=== PATIENT | female | born 1980 | race African-American/Black ===

== ENCOUNTER 2021-01-08 01:15 | Inpatient (IN) | payer MEDICARE, MEDICAID, SELFPAY ==
--- NOTE | ~2021-01-08 | MR_ITS ---
EXAMINATION: MR LUMBAR SPINE WITHOUT AND WITH CONTRAST CLINICAL INFORMATION: Low back pain. COMPARISON: None TECHNIQUE: MRI of the lumbar spine was obtained using routine sequences with and without contrast. Intravenous contrast: Gadavist 8.5 mL FINDINGS: VERTEBRAL BODIES AND PARASPINAL STRUCTURES: The marrow signal is homogeneous. There are no compression fractures or subluxations. Mildly reduced intradiscal signal evident from the L3 through the S1 levels. No marrow or soft tissue edema is visible. No pathologic enhancement identified. The paraspinal soft tissues appear normal. The imaged bony pelvis is unremarkable. CONUS MEDULLARIS AND CAUDA EQUINA: Normal, terminating at the level of L2. No lower cord signal abnormality is seen. The cauda equina nerve roots appear normal. No pathologic leptomeningeal enhancement identified. SPINAL LEVELS: L1-L2 and L2-L3: No disc pathology. No central canal stenosis or foraminal narrowing. L3-L4: Mild loss of disc height and mild posterior disc bulge without central canal stenosis. Mild bilateral foraminal narrowing. L4-L5: Broad-based posterior disc bulge lateralized more so to the right side with [id number] foraminal encroachment. Mild facet arthropathy without central canal stenosis. L5-S1: Mild loss of disc height and posterior disc bulge with a broad-based right subarticular zone disc protrusion impressing upon the right S1 nerve root. No central canal stenosis or foraminal narrowing. MR/MR lumbar spine wo/w con IMPRESSION: Broad-based right subarticular zone disc protrusion at the L5-S1 level impressing upon the right S1 nerve root with compression deformity. Mild posterior disc bulges at the L3-L4 and L4-L5 levels with [id number] foraminal encroachment. No central canal stenosis.
[2021-01-08 02:55] VITALS: BP 149/79; PULSE 88; RESP 18; TEMP 36.9; O2SAT 97
[2021-01-08 03:28] LABS: Basophils Absolute Auto 0.1 X10*3/uL (0.0-0.2); Basophils Percent Auto 0.3 % (0-2); Eosinophils Absolute Auto 0.3 X10*3/uL (0.0-0.4); Eosinophils Percent Auto 1.5 % (0-4); Hematocrit 36.1 % (37-47); Hemoglobin 11.6 g/dl (12.0-16.0); Imm Gran Abs Auto 0.07 X10*3/uL (0.00-0.03); Imm Gran Pct Auto 0.4 % (0.0-0.4); Lymphocytes Absolute Auto 2.3 X10*3/uL (1.2-4.9); Lymphocytes Percent Auto 13.1 % (20-40); MANUAL DIFF FLAG NO; Mean Corpuscular HGB Conc 32.1 g/dl (31.0-35.0); Mean Corpuscular Hemoglobin 27.4 pg (27.0-33.0); Mean Corpuscular Volume 85.1 fL (80-98); Mean Platelet Volume 10.5 fL (9.4-12.3); Monocytes Absolute Auto 1.1 X10*3/uL (0.1-1.2); Monocytes Percent Auto 6.4 % (2-11); Neutrophils Absolute Auto 13.5 X10*3/uL (2.0-8.3); Neutrophils Percent Auto 78.3 % (45-73); Platelet Count 323 X10*3/uL (160-400); Red Blood Count 4.24 X10*6/uL (4.20-5.50); Red Cell Distribution Width 14.6 % (11.0-16.0); White Blood Count 17.2 X10*3/uL (4.8-10.8)
[2021-01-08 03:47] LABS: Lactic Acid 0.9 mmol/L (0.5-2.0)
[2021-01-08 03:50] LABS: Anion Gap 13 (12-20); Blood Urea Nitrogen 7 mg/dL (9-16); Calcium 8.6 mg/dL (8.4-10.2); Carbon Dioxide 30 mmol/L (22-29); Chloride 100 mmol/L (96-108); Creatinine Clr Calc Pharmacy 134.4; Estimated Glomerular Filt Rate > 60; Glucose Random 101 mg/dL (60-115); Sodium 139 mmol/L (135-145)
[2021-01-08 04:10] LABS: Alanine Aminotransferase 16 U/L (0-31); Albumin Level 3.8 g/dL (3.5-5.0); Alkaline Phosphatase 165 U/L (39-117); Aspartate Amino Transferase 23 U/L (5-31); Bilirubin Direct 0.2 mg/dL (0.0-0.5); Bilirubin Total 0.3 mg/dL (0.0-1.0); Lipase 7 U/L (8-78); Total Protein 8.2 g/dL (6.5-8.0)
[2021-01-08] MEDS: Lidocaine HCl 2 % MPF 5 ML VIAL 10 ML SUBCUT (04:26)
[2021-01-08] MEDS: cefTRIAXone sodium 1 GM in 0.9 % Sodium Chloride 50 ML IV (04:26)
[2021-01-08 04:41] LABS: Glucose Urine UA NEG (NEG); Leukocyte Esterase Urine TRACE (NEG); Nitrite Urine POS (NEG); Specific Gravity - Urine 1.025 (1.005-1.025); UACC Culture Trigger YES; Urine Blood 1+ (NEG); Urine Ketones NEG (NEG); Urine Protein NEG (NEG-TRACE)
[2021-01-08 04:42] LABS: Appearance Urine CLOUDY; Color Urine YELLOW
--- NOTE | 2021-01-08 04:45 | PC.NURSE ---
Abscess drained by at bedside. Abscess d/t gangrene after bug bite 1 month ago. Brown fluid drained from abscess without issue, lidocaine injected by provider. Tolerated procedure well.
[2021-01-08 04:49] LABS: Bacteria Urine 4+ /LPF; Squamous Epithelial Cell Urine 1+ /LPF
--- NOTE | 2021-01-08 05:03 | ED_ITS ---
HPI - General Adult General Chief complaint: Extremity Problem Stated complaint: ?Arm infection Time Seen by Provider: 01/08/21 03:41 Source: patient Mode of arrival: ambulatory Limitations: no limitations History of Present Illness HPI narrative: 40-year-old female with history of IV drug abuser presented with left arm pain, think she has an abscess in her left arm, patient not sure if it is bug bite versus injecting herself with drugs, patient had a history of multiple skin abscesses with cellulitis. Had subjective fever at home patient took Tylenol at home. Related Data Allergies Allergy/AdvReac Type Severity Reaction Status Date / Time Penicillins Allergy Intermediate HIVES Verified 01/08/21 02:55 Review of Systems Review of Systems: All other systems are reviewed and are negative Constitutional: Reports as per HPI and Reports no additional constitutional complaints Eyes: Reports as per HPI and Reports no additional eye complaints Reports system reviewed and no additional complaints, except as documented Cardiovascular: Reports as per HPI and Reports no additional cardiovascular complaints Respiratory: Reports as per HPI and Reports no additional respiratory complaints Gastrointestinal: Reports as per HPI and Reports no additional gastrointestinal complaints Genitourinary: Reports no additional female genitourinary complaints Musculoskeletal: Reports no additional musculoskeletal complaints Skin/Breast: Reports system reviewed and no additional complaints, except as docu Psychiatric: Reports no additional psychiatric complaints Endocrine: Reports no additional endocrine complaints Hematologic/Lymphatic: Reports no additional hematologic/lymphatic complaints Allergic/Immunologic: Reports no additional allergic/immunologic complaints Reports system reviewed and no additional complaints, except as documented and Reports Abnormal speech present [facility] Social History Social History Advance Directives: No Advance Directives Information Provided: No Physical Exam Vital Signs: Vital Signs: Last Vital Signs Temp 98.4 F 01/08/21 02:55 Pulse 88 01/08/21 02:55 Resp 18 01/08/21 02:55 BP 149/79 H 01/08/21 02:55 Pulse Ox 97 01/08/21 02:55 Body Mass Index 0.3 Vital signs have been reviewed as appeared to be correct. Blood pressure normal. Heart rate normal. Respiration rate normal. Temperature normal. Oxygen saturation normal. Appearance: Alert. Oriented X3. No acute distress. Head: Normal external exam. Normocephalic. Atraumatic. No Lebron signs noted. No raccoon eyes noted Eyes: PERRLA. EOMI. Conjunctiva and sclera normal. Eyelids normal. ENT: TM's Normal. Pharynx normal. Uvula midline. Moist mucous membranes. No t rismus noted. No drooling noted. No muffled voice noted. Neck: Normal inspection. Neck supple. FROM. No adenopathy. Thyroid Normal. No meningeal signs. No neck mass noted. CVS: Normal heart rate and rhythm. Heart sound normal. No murmurs noted. Pulses normal throughout. Respiratory: No respiratory distress. Painless inspiration. Breath sounds normal. No wheezes/rales/rhonchi noted. Chest nontender. No accessory muscle usage noted or decreased air movement noted. Abdomen: Soft and nontender. Bowel sounds normal in all 4 quadrants. No distention noted. No organomegaly noted. No visible injury noted. Back: No CVA tenderness. Full range of motion noted. Skin: Skin warm and dry. Normal skin color. Normal skin turgor. No rashes/lesions/lacerations noted. Extremities: Left arm: 7 x 7 cm area of redness, hotness, tenderness, with 5 x 5 cm center area of fluctuation. Neuro: Oriented X 3. No motor deficit. No sensory deficit. Reflexes normal. Course Course Course Narrative: Assessment and plan. 40-year-old female history of IV drug abuser presented with left arm infection/a bscess status post I&D of the abscess of [place] [id number], will admit the patient for IV antibiotic. Patient also has a concern of STDs claimed that her significant other cheated on her, will check for STDs. Patient is complaining of low back pain for the past 3 days, no urinary incont inence, no motor or sensation deficit in the lower extremities. Given risk factor for this patient epidural abscess need to be ruled out by MRI the case discussed with the hospitalist who will order MRI as an inpatient. Procedures Abscess I/D Site: upper extremity (Left arm) Local Anesthetic: lidocaine 2% Amount of anesthesia used (mL): 5 Technique: incised with blade Amount of fluid expressed (mL): 100 Sent for culture/gram staining?: No Irrigation: No Packing used?: none Complications: pain Medical Decision Making Lab Data Lab results reviewed: Yes I reviewed the patient's lab results. Result diagrams: 01/08/21 03:19 01/08/21 03:20 Labs: Lab Results 01/08/21 01/08/21 01/08/21 Range/Units 03:19 03:19 03:20 WBC 17.2 H (4.8-10.8) X10*3/uL RBC 4.24 (4.20-5.50) X10*6/uL Hgb 11.6 L (12.0-16.0) g/dl Hct 36.1 L (37-47) % MCV 85.1 (80-98) fL MCH 27.4 (27.0-33.0) pg MCHC 32.1 (31.0-35.0) g/dl RDW 14.6 (11.0-16.0) % Plt Count 323 (160-400) X10*3/uL MPV 10.5 (9.4-12.3) fL Immature Gran % (Auto) 0.4 (0.0-0.4) % Neut % (Auto) 78.3 H (45-73) % Lymph % (Auto) 13.1 L (20-40) % [place] % (Auto) 6.4 (2-11) % Eos % (Auto) 1.5 (0-4) % Baso % (Auto) 0.3 (0-2) % Lymph # (Auto) 2.3 (1.2-4.9) X10*3/uL [place] # (Auto) 1.1 (0.1-1.2) X10*3/uL Eos # (Auto) 0.3 (0.0-0.4) X10*3/uL Baso # (Auto) 0.1 (0.0-0.2) X10*3/uL Abs Immat Gran (auto) 0.07 H (0.00-0.03) X10*3/uL Absolute Neuts (auto) 13.5 H (2.0-8.3) X10*3/uL Absolute Nucleated RBC 0.000 (0.0-0.012) X10*3/uL Nucleated RBC % (auto) 0.0 (0.0-0.2) /100WBC Sodium 139 (135-145) mmol/L Potassium 4.0 (3.3-5.1) mmol/L Chloride 100 (96-108) mmol/L Carbon Dioxide 30 H (22-29) mmol/L Anion Gap 13 (12-20) BUN 7 L (9-16) mg/dL Creatinine 0.71 (0.5-1.4) mg/dL Estim Creat Clear Calc 134.4 Estimated GFR > 60 Random Glucose 101 (60-115) mg/dL Lactic Acid 0.9 (0.5-2.0) mmol/L Calcium 8.6 (8.4-10.2) mg/dL Total Bilirubin 0.3 (0.0-1.0) mg/dL Direct Bilirubin 0.2 (0.0-0.5) mg/dL AST 23 (5-31) U/L ALT 16 (0-31) U/L Alkaline Phosphatase 165 H (39-117) U/L Total Protein 8.2 H (6.5-8.0) g/dL Albumin 3.8 (3.5-5.0) g/dL Lipase 7 L (8-78) U/L Urine Color Urine Appearance Urine pH (5.0-8.0) Ur Specific [place] (1.005-1.025) Urine Protein (NEG-TRACE) MG/DL Urine Glucose (UA) (NEG) MG/DL Urine Ketones (NEG) MG/DL Urine Blood (NEG) Urine Nitrite (NEG) Ur Leukocyte Esterase (NEG) Urine RBC (0) /HPF Urine WBC (0-4) /HPF Ur Squamous Epith Cells /LPF Urine Bacteria /LPF 01/08/21 Range/Units 04:31 WBC (4.8-10.8) X10*3/uL RBC (4.20-5.50) X10*6/uL Hgb (12.0-16.0) g/dl Hct (37-47) % MCV (80-98) fL MCH (27.0-33.0) pg MCHC (31.0-35.0) g/dl RDW (11.0-16.0) % Plt Count (160-400) X10*3/uL MPV (9.4-12.3) fL Immature Gran % (Auto) (0.0-0.4) % Neut % (Auto) (45-73) % Lymph % (Auto) (20-40) % [place] % (Auto) (2-11) % Eos % (Auto) (0-4) % Baso % (Auto) (0-2) % Lymph # (Auto) (1.2-4.9) X10*3/uL [place] # (Auto) (0.1-1.2) X10*3/uL Eos # (Auto) (0.0-0.4) X10*3/uL Baso # (Auto) (0.0-0.2) X10*3/uL Abs Immat Gran (auto) (0.00-0.03) X10*3/uL Absolute Neuts (auto) (2.0-8.3) X10*3/uL Absolute Nucleated RBC (0.0-0.012) X10*3/uL Nucleated RBC % (auto) (0.0-0.2) /100WBC Sodium (135-145) mmol/L Potassium (3.3-5.1) mmol/L Chloride (96-108) mmol/L Carbon Dioxide (22-29) mmol/L Anion Gap (12-20) BUN (9-16) mg/dL Creatinine (0.5-1.4) mg/dL Estim Creat Clear Calc Estimated GFR Random Glucose (60-115) mg/dL Lactic Acid (0.5-2.0) mmol/L Calcium (8.4-10.2) mg/dL Total Bilirubin (0.0-1.0) mg/dL Direct Bilirubin (0.0-0.5) mg/dL AST (5-31) U/L ALT (0-31) U/L Alkaline Phosphatase (39-117) U/L Total Protein (6.5-8.0) g/dL Albumin (3.5-5.0) g/dL Lipase (8-78) U/L Urine Color YELLOW Urine Appearance CLOUDY Urine pH 6.0 (5.0-8.0) Ur Specific [place] 1.025 (1.005-1.025) Urine Protein NEG (NEG-TRACE) MG/DL Urine Glucose (UA) NEG (NEG) MG/DL Urine Ketones NEG (NEG) MG/DL Urine Blood 1+ H (NEG) Urine Nitrite POS H (NEG) Ur Leukocyte Esterase TRACE H (NEG) Urine RBC 1-4 (0) /HPF Urine WBC 15-29 H (0-4) /HPF Ur Squamous Epith Cells 1+ /LPF Urine Bacteria 4+ /LPF Discharge Plan Discharge Clinical Impression: Cellulitis of arm, left, Abscess of left arm Patient Disposition: Admitted As Inpatient
[2021-01-08] MEDS: vancomycin HCL 1,500 MG in 0.9 % Sodium Chloride 500 ML 333.33 MG IV (05:28)
--- NOTE | 2021-01-08 05:50 | PC.NURSE ---
Per hospitalist, plan for MRI in the morning. Amaya (nursing supervisor [employer]) notified, plan to call on-call MRI staff member (Lyndsay). Hospitalist aware that on-call hours are 9am-5pm today.
--- NOTE | 2021-01-08 05:54 | PM.IMHP ---
History of Present Illness Date of Service: 01/08/21 Chief Complaint: Left arm pain redness and swelling 40-year-old female with a past medical history of IV drug abuse presented to the hospital with a chief complaint of left arm pain redness and swelling for the past 2 days. Complains of subjective fevers. Mentioned that she used IV drugs in the home. Denies any numbness tingling. Denies any fever chills cough. Denies any headaches. Mentions that she smokes cigarettes and uses IV drugs. Patient also complains of low back pain for the past 2 days. Denies any numbness tingling in the lower extremities. Denies any difficulty with urination or stool incontinence. Denies any falls. Review of all other systems is negative except mentioned above ER course: Per ER team patient exam was nonfocal, left arm noted to have significant swelling and fluctuancy-> I&D was done and drained copious amounts of pus. Patient was given IV vancomycin and ceftriaxone. Admitted to the hospital for further management. PMFSH Social History Alcohol intake: never Smoking Status: Never smoker Use of substances other than those prescribed or required for medical reasons: Yes Substance Use Type: Heroin Substance Use Frequency: Occasionally Last Used Substance: Weeks (ago) Advance Directives: No Advance Directives Information Provided: No Meds Allergies Allergy/AdvReac Type Severity Reaction Status Date / Time Penicillins Allergy Intermediate HIVES Verified 01/08/21 02:55 Active Medications: Current Medications Generic Name Dose Route Start Last Admin Trade Name Freq PRN Reason Stop Dose Admin Acetaminophen 650 mg 01/08/21 04:59 Acetaminophen 325 Mg Tablet PO Q6H PRN Pain, Mild (Pain Scale 1-3) Clonidine HCl 0.1 mg 01/08/21 05:02 Clonidine Hcl 0.1 Mg Tablet PO BID PRN anxiety/restlessness Protocol Vancomycin HCl 1,000 mg/ 270 mls @ 270 mls/hr 01/08/21 05:00 Sodium Chloride IV Q12H [facility] Pharmacy Consult 1 each 01/08/21 03:43 Consult Rx Vancomycin Dosing MISCELLANE DAILY PRN Consult order Pharmacy Consult 1 each 01/08/21 04:59 Consult Rx Vancomycin Dosing MISCELLANE DAILY PRN Consult order Sodium Chloride 3 ml 01/08/21 08:00 0.9 % Sodium Chloride Flush 3 Ml Syringe IVFLUSH QSHIFT IJEOMA Physical Exam Vital Signs and Narrative: Vital Signs: Last Vital Signs Temp 98.4 F 01/08/21 02:55 Pulse 88 01/08/21 02:55 Resp 18 01/08/21 02:55 BP 149/79 H 01/08/21 02:55 Pulse Ox 97 01/08/21 02:55 Body Mass Index 0.3 Gen: Appears be in no acute distress HEENT: NCAT, Moist mucosa. Pulmonary: Vesicular breath sounds, fair air entry CVS: Normal S1-S2 Abdomen: BS+, Soft, Nontender Extremities: Warm well perfused; left arm is warm and hyperemic. Refer pulses are palpable. Dressing in place on left arm. Patient denies paresthesias. Neuro: Alert and awake. Strength 5/5 upper and lower extremity; sensations equal bilaterally. Results Labs CBC and Chem 7: 01/08/21 06:35 01/08/21 06:35 Labs: Laboratory Results - last 24 hr 01/08/21 01/08/21 01/08/21 03:19 03:19 03:20 MCV 85.1 MCH 27.4 MCHC 32.1 RDW 14.6 Plt Count 323 MPV 10.5 Immature Gran % (Auto) 0.4 Neut % (Auto) 78.3 H Lymph % (Auto) 13.1 L [place] % (Auto) 6.4 Eos % (Auto) 1.5 Baso % (Auto) 0.3 Lymph # (Auto) 2.3 [place] # (Auto) 1.1 Eos # (Auto) 0.3 Baso # (Auto) 0.1 Abs Immat Gran (auto) 0.07 H Absolute Neuts (auto) 13.5 H Absolute Nucleated RBC 0.000 Nucleated RBC % (auto) 0.0 Anion Gap 13 Estim Creat Clear Calc 134.4 Estimated GFR > 60 Random Glucose 101 Lactic Acid 0.9 Calcium 8.6 Total Bilirubin 0.3 Direct Bilirubin 0.2 AST 23 ALT 16 Alkaline Phosphatase 165 H Total Protein 8.2 H Albumin 3.8 Lipase 7 L Urine Color Urine Appearance Urine pH Ur Specific [place] Urine Protein Urine Glucose (UA) Urine Ketones Urine Blood Urine Nitrite Ur Leukocyte Esterase Urine RBC Urine WBC Ur Squamous Epith Cells Urine Bacteria 01/08/21 04:31 MCV MCH MCHC RDW Plt Count MPV Immature Gran % (Auto) Neut % (Auto) Lymph % (Auto) [place] % (Auto) Eos % (Auto) Baso % (Auto) Lymph # (Auto) [place] # (Auto) Eos # (Auto) Baso # (Auto) Abs Immat Gran (auto) Absolute Neuts (auto) Absolute Nucleated RBC Nucleated RBC % (auto) Anion Gap Estim Creat Clear Calc Estimated GFR Random Glucose Lactic Acid Calcium Total Bilirubin Direct Bilirubin AST ALT Alkaline Phosphatase Total Protein Albumin Lipase Urine Color YELLOW Urine Appearance CLOUDY Urine pH 6.0 Ur Specific [place] 1.025 Urine Protein NEG Urine Glucose (UA) NEG Urine Ketones NEG Urine Blood 1+ H Urine Nitrite POS H Ur Leukocyte Esterase TRACE H Urine RBC 1-4 Urine WBC 15-29 H Ur Squamous Epith Cells 1+ Urine Bacteria 4+ Assessment and Plan (1) Cellulitis of arm, left: Status: Acute 40-year-old female with a past medical history of IV drug abuse presented to the hospital with a chief complaint of left arm pain redness and swelling noted to have cellulitis/abscess. Status post I&D in the ER. Admitted to the hospital for further management. Left arm cellulitis/abscess: Status post I&D in the ER. Patient denies any paresthesias and have good peripheral pulses. Less concern for any compartment syndrome currently. Will also consult General surgery for further recommendations. Continue IV vancomycin. Id consult. Follow-up cultures. Low back pain: Exam nonfocal. Patient denies urinary retention or stool incontinence. Noted paraspinal tenderness. Question musculoskeletal. Will also obtain MRI spine to rule out any infectious etiology. History of polysubstance abuse: Patient counseled to avoid illicit drug use. Clonidine p.r.n.. Monitor for withdrawal. Tobacco dependence: Nicotine patch offered. DVT prophylaxis: Subcu heparin Code status: Full code
[2021-01-08 07:09] VITALS: BP 111/55; PULSE 74; RESP 16; TEMP 36.8; O2SAT 97
[2021-01-08 07:09] LABS: MANUAL DIFF FLAG NO
[2021-01-08 07:17] LABS: Basophils Percent Auto 0.3 % (0-2); Eosinophils Absolute Auto 0.3 X10*3/uL (0.0-0.4); Eosinophils Percent Auto 1.6 % (0-4); Hematocrit 32.9 % (37-47); Hemoglobin 10.5 g/dl (12.0-16.0); Imm Gran Abs Auto 0.06 X10*3/uL (0.00-0.03); Imm Gran Pct Auto 0.4 % (0.0-0.4); Lymphocytes Absolute Auto 2.3 X10*3/uL (1.2-4.9); Mean Corpuscular HGB Conc 31.9 g/dl (31.0-35.0); Mean Corpuscular Hemoglobin 27.3 pg (27.0-33.0); Mean Corpuscular Volume 85.5 fL (80-98); Mean Platelet Volume 11.2 fL (9.4-12.3); Monocytes Absolute Auto 1.2 X10*3/uL (0.1-1.2); Monocytes Percent Auto 7.6 % (2-11); Neutrophils Absolute Auto 11.4 X10*3/uL (2.0-8.3); Neutrophils Percent Auto 75.1 % (45-73); Platelet Count 298 X10*3/uL (160-400); Red Blood Count 3.85 X10*6/uL (4.20-5.50); Red Cell Distribution Width 14.6 % (11.0-16.0); White Blood Count 15.2 X10*3/uL (4.8-10.8)
[2021-01-08 07:39] LABS: Anion Gap 13 (12-20); Blood Urea Nitrogen 6 mg/dL (9-16); Calcium 8.2 mg/dL (8.4-10.2); Carbon Dioxide 29 mmol/L (22-29); Chloride 101 mmol/L (96-108); Creatinine Clr Calc Pharmacy 140.3; Estimated Glomerular Filt Rate > 60; Glucose Random 110 mg/dL (60-115); Potassium 3.8 mmol/L (3.3-5.1); Sodium 139 mmol/L (135-145)
[2021-01-08] MEDS: 0.9 % Sodium Chloride Flush 3 ML SYRINGE IVFLUSH (08:07)
[2021-01-08 09:04] LABS: CT PCR NOT DETECTED (Not Detect.); NG PCR NOT DETECTED (Not Detect.)
[2021-01-08 11:10] VITALS: BP 107/44; PULSE 66; RESP 18; TEMP 37.2; O2SAT 96
[2021-01-08] MEDS: Nicotine 14 MG PATCH.TD24 TRANSDERMA (11:16)
--- NOTE | 2021-01-08 11:30 | PC.NURSE ---
dressing on upper left arm was saturated with serosanguineous fluid. dressing was removed, abscess was cleaned with saline soaked gauze pads. telfa dressing applied and then wrapped with gauze.
--- NOTE | 2021-01-08 11:33 | MHC.CM.PN ---
Attempted to meet with patient in regards to discharge planning. Patient currently yelling at nursing staff. Will attempt to meet again. Continue to monitor for d/c needs.
--- NOTE | 2021-01-08 11:35 | PC.NURSE ---
pt was offered prn Tylenol for upper left arm pain and refused the medication. pt then started shouting about inadequate pain control. (Quinn) was notified and pt was told MD would be in to see her and the patient stated she did not want to see the doctor and stated she wanted to leave now. pt was encouraged to stay and adamantly refused to stay. pt informed of risks of leaving AMA. pt informed of risk of infection and encouraged to return to ED at anytime if needed. pt alert and oriented x3, ambulated independently, gait steady. no evidence of respiratory distress noted. pt given extra supplied for dressing changes at home. aware.
--- NOTE | 2021-01-08 11:39 | MHC.CM.PN ---
Patient left AMA before she could be seen by case management.
--- NOTE | 2021-01-08 12:27 | PM.EVENT ---
Event Note Date of Service: 01/13/21 Event Note: Notified by the ED nurse that patient wants to leave against medical advise -I try to reach to the patient but before that she left against medical advice, she did not want to wait to be seen: Patient was notified by the staff the risk of worsening infection and also was told to come to the emergency room and get treated. Discharge diagnosis: 1.Left arm cellulitis/abscess has I&d last night in ED.
== END 2021-01-08 11:39 | disposition left against medical advice (07) | DRG 603 ==
LOC: HO.ED 05:09 → HO.EDOVER 05:10
PROVIDERS: Admitting Provider Hospitalist; Emergency Provider Emergency Medicine; Visit Provider Internal Medicine
DX: L02.414 Cutaneous abscess of left upper limb (principal); L03.114 Cellulitis of left upper limb; M54.9 Dorsalgia, unspecified; F19.10 Other psychoactive substance abuse, uncomplicated; F17.210 Nicotine dependence, cigarettes, uncomplicated; Z71.6 Tobacco abuse counseling; Z88.0 Allergy status to penicillin
CPT/HCPCS: 36415; 72158; 80048; 80076; 81001; 81003; 83605; 83690; 85025; 87040; 87086; 87491; 87591; 96372; 99284; 99285; A9585; J0696; J3370

== ENCOUNTER 2024-03-14 15:10 | Emergency (ER) | payer MEDICARE, MEDICAID, SELFPAY ==
[2024-03-14 15:18] VITALS: BP 144/100; PULSE 98; O2SAT 98
--- NOTE | 2024-03-14 15:19 | ED.GENADULT ---
[facility] - General Adult General Chief complaint: Psychiatric Symptoms Stated complaint: feels like bugs are crawling on her Time Seen by Provider: 03/14/24 16:11 Source: patient Mode of arrival: EMS History of Present Illness ED Provider: Dr Long [facility] narrative: This is a 43-year-old female who is brought in by EMS after someone called 911 for observation of smoke in patient's home but patient states that she has been femur gaining her mobile home for insects because she feels that she has bugs throughout her home and that they are climbing through her hair and on her skin. She states that she uses multiple drugs Diego dust/heroin/cocaine and states that she has no running water at home. She states that she does not want to live anymore and that she has thoughts of harming herself but denies being on any psychiatric medications. Related Data Allergies Allergy/AdvReac Type Severity Reaction Status Date / Time Penicillins Allergy Intermediate HIVES Verified 03/14/24 15:53 Review of Systems Review of Systems: Pertinent positives and negatives as stated in HPI PMF Past Medical History Source: nursing notes reviewed Social History Social History Alcohol intake: current Alcohol intake frequency: a few times a week Smoked in Last 30 Days: Yes Use of substances other than those prescribed or required for medical reasons: Yes Substance Use Type: Crack/Cocaine, Heroin, IV Drugs and Marijuana Substance Use Frequency: Chronic Longstanding Last Used Substance: Days (ago) Advance Directives: No Advance Directives Information Provided: No Do you have a plan to hurt others: No Plan Patient : No Physical Exam ED Vital Signs: Vital Signs - 24 hr 03/14/24 15:48 Temperature 98.4 F Pulse Rate 82 Respiratory Rate 16 Blood Pressure 161/89 H Pulse Oximetry 98 Oxygen Delivery Method Room Air BMI result Body Mass Index 31.1 VITAL SIGNS: Reviewed. GENERAL: Well developed, well nourished, in mild distress. HEAD: Normocephalic/atraumatic EYES: PERRLA, EOMI EARS: Ext canals without abnormality NOSE: Nares patent bilateral OROPHARYNX: no oral lesions noted, posterior pharynx clear NECK: Supple, no adenopathy LUNGS: Normal breath sounds. No adventitious sounds or accessory muscle use. SpO2<98> CARDIOVASCULAR: Regular rate and rhythm without noted murmurs, no JVD or lower extremity edema. ABDOMEN: Soft, non-tender, non-distended with bowel sounds. MUSCULOSKELETAL: No tenderness, deformities, or effusions noted on gross inspection. EXTREMITIES: No cyanosis, clubbing or edema. SKIN: Inspection of the skin reveals no rashes, no obvious bug bite NEUROLOGIC: Alert and oriented x 4. Strength and sensation to light touch were grossly intact x 4, cranial nerves 2-12 are grossly intact. Course Course Course Narrative: This is a Rapid Medical Examination (RME) performed by Shavonne Sanchez PA-C in triage. Full HPI, ROS, assessment and treatment plan per primary provider in the Main ED. 43 yo female with history of IVDA presenting to the ER for evaluation of bugs crawling on her. Fire was called to her house for white smoke but she was found spraying bug spray, bug bombs in her home. She feels SOB from the smoke and feels like bugs her on her. She was spraying the bug spray from the store to exterminate the bugs, apple cider vinegar and tea tree oil on herself to try to get rid of them. She felt like there was an oozing from her skin, all over. She has not had running water in her trailer for 6 months. She lives alone. She admits to drug use but none today, would not elaborate. Not suicidal. Plan: to go to the pod, medical clearance Medical Decision Making Medical Decision Making [facility] Narrative: 43-year-old female with history and clinical presentation,DDX: Opioid withdrawal with paresthesias, nursing informs me that COWS-15, patient has no other acute medical complaints. I reviewed all investigations and hematologic indices are negative for leukocytosis/left shift/anemia/thrombocytopenia. Chemistry indices are negative for MORENITA/electrolyte/liver enzyme derangements, alkaline phosphatase is chronically elevated. Urinalysis negative for UTI/hematuria. Salicylate/ethanol/acetaminophen are undetectable. UDS appears to be grossly positive for opiates to include fentanyl/cocaine/marijuana. I see no positivity for PCP. COVID-19 is negative. INTERVENTION: Baclofen/clonidine/tizanidine Patient is otherwise cleared for evaluation by the care team and continued COWS assessment. Patient placed in physician observation because the patient needed more time for crisis and addiction medicine evaluation. At the time observation was started the patient's vital signs were stable, patient is alert and oriented but slightly agitated, neuro: Nonfocal, CV RRR, lungs clear Differential Diagnosis Differential Diagnoses: The differential diagnosis associated with the presentation includes Please see the discussion above Admission/Observation Consideration of admission/observation: Escalation of care including admission/observation considered Please see the discussion above Lab Data MDM Lab Attestation statement: I reviewed the patient's lab results. Please see the discussion above 03/14/24 16:44 03/14/24 16:44 Labs: Lab Results 03/14/24 Range/Units 16:44 WBC 9.1 (4.8-10.8) X10*3/uL RBC 4.36 (4.20-5.50) X10*6/uL Hgb 12.3 (12.0-16.0) g/dl Hct 37.2 (37.0-47.0) % MCV 85.3 (80.0-98.0) fL MCH 28.2 (27.0-33.0) pg MCHC 33.1 (31.0-35.0) g/dl RDW 15.7 (11.0-16.0) % Plt Count 311 (160-400) X10*3/uL MPV 10.9 (9.4-12.3) fL Immature Gran % (Auto) 0.3 (0.0-0.4) % Neut % (Auto) 66.2 (45-73) % Lymph % (Auto) 24.3 (20-40) % Mckean % (Auto) 8.5 (2-11) % Eos % (Auto) 0.3 (0-4) % Baso % (Auto) 0.4 (0-2) % Lymph # (Auto) 2.2 (1.2-4.9) X10*3/uL Mckean # (Auto) 0.8 (0.1-1.2) X10*3/uL Eos # (Auto) 0.0 (0.0-0.4) X10*3/uL Baso # (Auto) 0.0 (0.0-0.2) X10*3/uL Abs Immat Gran (auto) 0.03 (0.00-0.03) X10*3/uL Absolute Neuts (auto) 6.0 (2.0-8.3) x10*3/uL Absolute Nucleated RBC 0.000 (0.0-0.012) X10*3/uL Nucleated RBC % (auto) 0.0 (0.0-0.2) /100WBC Urine Color Yellow Urine Appearance Clear Urine pH 8.0 (5.0-9.0) Ur Specific Organ <= 1.005 (1.005-1.025) Urine Protein Negative (Neg-Trace) mg/dL Urine Glucose (UA) Negative (Negative) mg/dL Urine Ketones Negative (Negative) mg/dL Urine Blood Negative (Negative) Urine Nitrite Negative (Negative) Ur Leukocyte Esterase Negative (Negative) Urine Opiates Screen POSITIVE H (Not Detect) Ur Buprenorphine Scrn Not Detected (Not Detect) ng/mL Ur Oxycodone Screen Not Detected (Not Detect) ng/mL Urine Methadone Screen Not Detected (Not Detect) ng/mL Urine Fentanyl Screen POSITIVE H (Not Detect) Ur Barbiturates Screen Not Detected (Not Detect) Ur Phencyclidine Scrn Not Detected (Not Detect) Ur Amphetamines Screen Not Detected (Not Detect) U Benzodiazepines Scrn Not Detected (Not Detect) Urine Cocaine Screen POSITIVE H (Not Detect) U Marijuana (THC) Screen POSITIVE H (Not Detect) COVID-19 (TOMMY) Negative (Negative) COVID-19 Clin Com See Note External Record Review External record reviewed: Outpatient record and Prior outpatient labs Social Determinants Patient?s care significantly limited by Social Determinants of Health including: Alcoholism and drug addiction in family Critical Care Time Critical Care Time Critical Care Time: Yes Total Critical Care Time: 30 Attestation: I personally attest to this time spent taking care of the patient. Discharge Plan Discharge Clinical Impression: Suicidal ideation, Polysubstance use disorder Patient Disposition: Still a Patient Interventions: [place]-Suicide Risk Severity Scale Last Done: 03/14/24 16:28 Print Language: Swedish
[2024-03-14 15:48] VITALS: BP 161/89; PULSE 82; RESP 16; TEMP 36.9; O2SAT 98; BMI 31.1
--- NOTE | 2024-03-14 16:37 | PC.NURSE ---
pt brought in from the pod from triage d/t delusions/hallucinations. pt presents to ED d/t having sensory/visual/auditory hallucinations thinking that bugs are crawling all over her and coming out of her skin. pt states she lives in a trailer and has noticed these bugs for the past 2 days. pt states spraying skin all over her body and putting bug bombs inside her trailer to kill the bugs. pt also verbalizes having no running water and has been showering at a motel. while entering pod - pt extremely tearful/restless/unable to stay still/itching skin all over. belongings searched/obtained via security. no contraband noted. belongings in locker #3. pt took a shower immediately after belongings obtained. no bite erwin present during skin assessment. pt verbalizes she is feeling suicidal w/ a plan. pt states plan would be to overdose on pills. no HI noted. pt also states hx of IVDU - states last use was . urine/labs obtained/sent to lab. no sob/wob noted. respirations even/unlabored. plan of care ongoing.
[2024-03-14 16:50] LABS: MANUAL DIFF FLAG NO
[2024-03-14 16:51] VITALS: PULSE 82
[2024-03-14 16:52] LABS: Appearance Urine Clear; Basophils Percent Auto 0.4 % (0-2); Color Urine Yellow; Eosinophils Percent Auto 0.3 % (0-4); Glucose Urine UA Negative (Negative); Hematocrit 37.2 % (37.0-47.0); Hemoglobin 12.3 g/dl (12.0-16.0); Imm Gran Abs Auto 0.03 X10*3/uL (0.00-0.03); Imm Gran Pct Auto 0.3 % (0.0-0.4); Leukocyte Esterase Urine Negative (Negative); Lymphocytes Absolute Auto 2.2 X10*3/uL (1.2-4.9); Lymphocytes Percent Auto 24.3 % (20-40); Mean Corpuscular HGB Conc 33.1 g/dl (31.0-35.0); Mean Corpuscular Hemoglobin 28.2 pg (27.0-33.0); Mean Corpuscular Volume 85.3 fL (80.0-98.0); Mean Platelet Volume 10.9 fL (9.4-12.3); Monocytes Absolute Auto 0.8 X10*3/uL (0.1-1.2); Monocytes Percent Auto 8.5 % (2-11); Neutrophils Percent Auto 66.2 % (45-73); Nitrite Urine Negative (Negative); Platelet Count 311 X10*3/uL (160-400); Red Blood Count 4.36 X10*6/uL (4.20-5.50); Red Cell Distribution Width 15.7 % (11.0-16.0); Specific Gravity - Urine <= 1.005 (1.005-1.025); Urine Blood Negative (Negative); Urine Ketones Negative (Negative); Urine Protein Negative (Neg-Trace); White Blood Count 9.1 X10*3/uL (4.8-10.8)
--- NOTE | 2024-03-14 16:59 | MHC.EDTECH ---
PATIENT CAME FROM TRIAGE ,PATIENT TOOK A SHOWER AND WAS CHANGE INTO HOSPITAL ATTIRE ,PATIENT RADHAS ARE LOCKED UP IN LOCKER # 3 IN POD ,PATIENT BLOOD DRAWN ,URINE SAMPLE COLLECTED AND COVID ALL SENT TO LAB ,PATIENT WAS GIVEN SNACKS AND NAHED SIDDHARTHA .
[2024-03-14 17:03] LABS: COVID-19 Test Negative (Negative); IDNOW Serial# 58CA691E
[2024-03-14 17:04] LABS: Amphetamine Screen Urine Not Detected (Not Detect); Barbiturates, Urine Not Detected (Not Detect); Benzodiazepines Screen Urine Not Detected (Not Detect); Buprenorphine Scr Not Detected (Not Detect); Cannabinoid Screen Urine POSITIVE (Not Detect); Cocaine Screen Urine POSITIVE (Not Detect); Fentanyl, urine POSITIVE (Not Detect); Methadone Screen, Urine Not Detected (Not Detect); Opiate Screen Urine POSITIVE (Not Detect); Oxycodone Screen Urine Not Detected (Not Detect); Phencyclidine Screen Urine Not Detected (Not Detect)
[2024-03-14 17:07] LABS: Alanine Aminotransferase 20 U/L (0-31); Albumin Level 4.2 g/dL (3.5-5.0); Alkaline Phosphatase 133 U/L (39-117); Anion Gap 15 (12-20); Aspartate Amino Transferase 31 U/L (5-31); Bilirubin Direct 0.3 mg/dL (0.0-0.5); Bilirubin Total 0.5 mg/dL (0.0-1.0); Blood Urea Nitrogen 5 mg/dL (9-16); Carbon Dioxide 24 mmol/L (22-29); Chloride 105 mmol/L (96-108); Creatinine Clr Calc Pharmacy 90.8; Estimated Glomerular Filt Rate > 60; Glucose Random 113 mg/dL (60-115); Magnesium 1.9 mg/dL (1.6-2.6); Potassium 4.1 mmol/L (3.3-5.1); Sodium 140 mmol/L (135-145)
[2024-03-14 17:08] LABS: Acetaminophen LAB < 3 mcg/mL (<30); Ethanol < 10 mg/dL; Salicylate < 5.0 mg/dL (15-30)
[2024-03-14] MEDS: cloNIDine HCL 0.1 MG TABLET PO (17:20)
[2024-03-14] MEDS: Baclofen 10 MG TABLET PO (17:20)
--- NOTE | 2024-03-14 17:22 | PC.NURSE ---
COWS = 15. provider notified/aware. medication administered per provider order. effectiveness pending. waiting on med from pharmacy - will administer when able.
[2024-03-14] MEDS: TiZANidine HCL 4 MG TABLET PO (17:36)
--- NOTE | 2024-03-14 17:38 | PC.NURSE ---
medication delivered from pharmacy/administered.
--- NOTE | 2024-03-14 17:52 | PC.NURSE ---
pt speaking to CARE team at this time.
--- NOTE | 2024-03-14 18:57 | PC.NURSE ---
patient appears to remain at rest at present respirations are even and unlabored patient appears in no distress
[2024-03-15] MEDS: hydrOXYzine HCL 50 MG TABLET PO (06:16)
[2024-03-15] MEDS: cloNIDine HCL 0.1 MG TABLET PO (06:16)
[2024-03-15 06:17] VITALS: BP 171/72; PULSE 75; RESP 16; TEMP 37.2; O2SAT 96
--- NOTE | 2024-03-15 07:01 | PC.NURSE ---
Assumed care of patient at 0645. Patient is observed resting quietly in their bed. Breathing is even and unlabored with no signs of distress observed. Will continue plan of care.
--- NOTE | 2024-03-15 11:42 | PC.NURSE ---
CIWA / COWS PT scored an 18 CIWA and 14 COWS. MD made aware.
[2024-03-15 14:00] VITALS: BP 150/76; PULSE 77; RESP 16; TEMP 37.1; O2SAT 96
[2024-03-15] MEDS: chlordiazePOXIDE HCl 25 MG CAPSULE 100 MG PO (15:07)
[2024-03-15 20:41] VITALS: BP 151/78; PULSE 70; RESP 14; TEMP 36.7; O2SAT 97
[2024-03-16 05:47] VITALS: BP 148/65; PULSE 63; RESP 16; TEMP 36.6; O2SAT 98
[2024-03-16] MEDS: LORazepam 1 MG TABLET 2 MG PO (07:30)
--- NOTE | 2024-03-16 07:34 | PC.NURSE ---
Addendum entered by Ros Mckinney 03/16/24 07:52: Plan to hold off on Librium to determine effects of Ativan, per MD Colin Original Note: Assumed care of patient at 0645, patient appears to be thrashing about on bed in BH 3. Patient reports feeling bugs crawling on her skin. MD johnson, 2mg Ativan administered per DEC. CIWA completed with a score of 16. Per MAR, patient received Librium yesterday with positive effect. MD Colin aware, no new orders at this time. Continue plan of care for dual dx bedsearch
--- NOTE | 2024-03-16 08:04 | MHC.CARE ---
This pt was accepted to [facility] by [facility]. The accepting provider is Dr. Lu and the ETA is 12pm or 1pm. The address is [address] [place] [address]. [facility] requested a test which was relayed to the pod RN. The accepting facility does not require a nurse to nurse. CARE team was notified of placement to complete section 12 for transport.
[2024-03-16 09:27] LABS: UPreg QC Valid YES; Urine Pregnancy NEGATIVE (NEGATIVE)
--- NOTE | 2024-03-16 09:40 | PC.NURSE ---
Patient appears to be getting agitated again, reporting tactile hallucinations and some anxiety. MD Dixie johnson
[2024-03-16] MEDS: chlordiazePOXIDE HCl 25 MG CAPSULE 100 MG PO (09:47)
[2024-03-16] MEDS: LORazepam 1 MG TABLET PO (09:47)
[2024-03-16] MEDS: diphenhydrAMINE HCL 25 MG CAPSULE PO (09:47)
[2024-03-16 09:56] VITALS: BP 151/92; PULSE 73; RESP 16; TEMP 36.8; O2SAT 100
== END 2024-03-16 11:48 ==
PROVIDERS: Emergency Medicine; Physician Assistant; Emergency Provider Student in an Organized Health Care Education/Training Program; PCP Nurse Practitioner Family
DX: R45.851 Suicidal ideations (principal); F19.988 Other psychoactive substance use, unspecified with other psychoactive substance-induced disorder; R06.02 Shortness of breath; Z11.52 Encounter for screening for COVID-19
CPT/HCPCS: 36415; 80048; 80076; 80143; 80179; 80307; 81003; 81025; 83735; 85025; 87635; 99285; S9485

== ENCOUNTER 2024-05-21 18:59 | Inpatient (IN) | payer MEDICARE, MEDICAID, SELFPAY ==
--- NOTE | ~2024-05-21 | XR_ITS ---
EXAMINATION: XR CHEST CLINICAL INFORMATION: Asthma exacerbation COMPARISON: None available. TECHNIQUE: 2 views of the chest were obtained. FINDINGS: Prominent interstitial markings. No organized airspace consolidation. No pneumothorax or pleural effusion. Soft tissue and osseous structures are within normal limits. XR/XR chest 2V IMPRESSION: Prominent interstitial markings, which can be seen in the setting of asthma exacerbation. No organized consolidation. Electronically signed by: Donte Baker DO 06/18/2024 11:56 PM EDT
--- NOTE | ~2024-05-21 | XR_ITS ---
EXAMINATION: XR CHEST CLINICAL INFORMATION: Rule out pneumonia COMPARISON: X-ray 06/18/2014 TECHNIQUE: 2 views of the chest were obtained. FINDINGS: Stable cardiac and mediastinal silhouette. Slightly low lung volumes. Bronchial wall thickening and peribronchial hazy opacities in bilateral mid and lower lungs. No dense consolidation is seen. No effusion. No pneumothorax. XR/XR chest 2V IMPRESSION: Mild bronchial wall thickening and hazy opacities in bilateral mid and lower lungs could reflect infectious or inflammatory process. No dense consolidation is seen.] Electronically signed by: Sanya Vaughan MD 06/21/2024 02:50 PM EDT
--- NOTE | ~2024-05-21 | XR_ITS ---
EXAMINATION: XR LUMBOSACRAL SPINE CLINICAL INFORMATION: Severe back pain, history of disc injury COMPARISON: Lumbar spine MRI on 01/08/2021 TECHNIQUE: Three views of the lumbosacral spine. FINDINGS: The lumbar spine maintains normal alignment. Vertebral body heights are maintained. Our mild endplate degenerative changes. Intervertebral disc spaces are maintained. There is mild facet arthropathy in the lower lumbar spine. XR/XR lumbar spine 2-3V IMPRESSION: Unremarkable examination. Electronically signed by: Cristy Mathis MD 06/08/2024 07:38 AM EDT
[2024-05-21 19:44] VITALS: BMI 34.1
[2024-05-21 19:45] VITALS: BP 138/71; PULSE 67; RESP 18; TEMP 36.9; O2SAT 96
[2024-05-21 20:00] VITALS: BP 148/88; PULSE 87; RESP 18; TEMP 36.6; O2SAT 97
[2024-05-21 21:25] VITALS: BP 138/78
[2024-05-21] MEDS: Pramipexole Di-HCL 0.125 MG TABLET PO (21:25)
[2024-05-21] MEDS: QUEtiapine Fumarate 200 MG TABLET PO (21:25)
[2024-05-21] MEDS: hydrOXYzine HCL 25 MG TABLET PO (21:25)
[2024-05-21] MEDS: Doxepin HCl 10 MG CAPSULE 20 MG PO (21:25)
[2024-05-21] MEDS: Prazosin HCL 1 MG CAPSULE 4 MG PO (21:25)
--- NOTE | 2024-05-21 21:37 | HE.PHANOTE ---
METHADONE CONFIRMATION FORM PATIENT RECEIVED 100MG FROM [facility] THAT WAS CCONFIRMED 100MG DAILY FROM [facility]. LAST DOSE 05/21
--- NOTE | 2024-05-22 00:04 | PC.ADMIT ---
Patient admitted to [facility] from [facility] on 05/21/24 at 1923 on a 12b for suicidal ideation with plan to overdose or drown herself and substance use disorder. Patient reports being discharged from [facility] last week (for SI) and immediately began using once back in the community. Patient reports increased feelings of hopelessness and depression. She has been suffering with the loss of her and parents passing away. She is making statements such as ?I want to be like my family?. Patient on daily methadone 100mg daily (verified at [facility] from [facility]), Toxicology positive for methadone, fentanyl, cannabis and cocaine. She is a daily smoker. Denies alcohol use. Upon arrival to the unit,? skin check and changeover done by prior shift. Patient endorsing moderate to severe anxiety. She declined to sign any LITZY?s. She is soft spoken during the admission process, limited participation. Denies SI/HI/AH/VH. Med rec completed, patient compliant with med administration.
[2024-05-22] MEDS: methADONE HCl 20 MG/2 ML ORAL.CONC 100 MG PO (07:40)
[2024-05-22 08:00] VITALS: BP 117/56; PULSE 62; RESP 16; TEMP 36.6; O2SAT 97
[2024-05-22 09:25] LABS: Alanine Aminotransferase 15 U/L (0-31); Albumin Level 3.5 g/dL (3.5-5.0); Alkaline Phosphatase 108 U/L (39-117); Anion Gap 14 (12-20); Aspartate Amino Transferase 24 U/L (5-31); Bilirubin Total 0.3 mg/dL (0.0-1.0); Blood Urea Nitrogen 6 mg/dL (9-16); Calcium 8.6 mg/dL (8.4-10.2); Carbon Dioxide 25 mmol/L (22-29); Chloride 104 mmol/L (96-108); Cholesterol 151 mg/dL (<200); Creatinine Clr Calc Pharmacy 93.1; Estimated Glomerular Filt Rate > 60; Glucose Fasting 103 mg/dL (60-99); HDL Cholesterol 41 mg/dL (>40); LDL Cholesterol Calculated 95 mg/dL (<100); Potassium 3.8 mmol/L (3.3-5.1); Sodium 139 mmol/L (135-145); Total Protein 7.3 g/dL (6.5-8.0); Triglycerides 75 mg/dL (<150)
[2024-05-22] MEDS: Sertraline HCL 100 MG TABLET PO (10:26)
[2024-05-22] MEDS: hydrOXYzine HCL 25 MG TABLET PO (10:26)
[2024-05-22] MEDS: QUEtiapine Fumarate 50 MG TABLET PO (10:26)
[2024-05-22] MEDS: Cyclobenzaprine HCl 10 MG TABLET PO ×3 (10:48→20:37)
--- NOTE | 2024-05-22 11:50 | HO.PSYADMNOT ---
HPI Date of Service: 05/22/24 Chief Complaint: mood disorder Sources of Information: patient interviewed, chart reviewed and crisis/core team assessment reviewed HPI Subjective Notes: Aly Warning and Conditional Voluntary Healthcare Proxy: No Guardianship: No Medical Problems Affecting Mental Status: No Narrative: 44 yo female, history of depression, ASD, PTSD, Polysubstance Use Disorder, transfer from [facility] for treatment of SI and detox. Reports recent discharge from [facility]. Began using substances immediately upon discharge to cope with overwhelming losses. Mother recently. , father have also within the past few years. Pt feeling overwhelmed and wanting to be with them. As a result she reports SI with plan, intent to overdose or drown. Past Psychiatric History: IP: 5+ per pt OP: No current team Trials: Affirms Medical Evaluation Reviewed: Yes [facility] Medical History (Updated 05/22/24 @ 18:21 by Jocelyne Patel APRN) PTSD (post-traumatic stress disorder) Recurrent major depression Narrative: Cellulitis L Arm Family History: Schizoaffective disorder Social History: Pt lives in a trailer she owns. As this reminds her of her family she plans not to return there. Substance History: Cocaine, Fentanyl, Cannabis. Methadone pt Reports 7.5 years sober before relapse Pt has used detox services, rehab services, [facility] and penitentiary house programs Trauma History: Losses Diagnostics Vital Signs (24Hr): Vital Signs - 24 hr 05/21/24 19:45 05/21/24 20:00 05/21/24 21:25 Temperature 98.4 F 97.8 F Pulse Rate 67 87 Respiratory Rate 18 18 Blood Pressure 138/71 148/88 H 138/78 Pulse Oximetry 96 97 Oxygen Delivery Method Room Air Room Air 05/22/24 08:00 Temperature 98 F Pulse Rate 62 Respiratory Rate 16 Blood Pressure 117/56 L Pulse Oximetry 97 Oxygen Delivery Method Room Air BMI result Body Mass Index 34.1 Labs 05/22/24 08:24 Labs: Laboratory Results - last 48 hr 05/22/24 08:24 Sodium 139 Potassium 3.8 Chloride 104 Carbon Dioxide 25 Anion Gap 14 BUN 6 L Creatinine 0.77 Estim Creat Clear Calc 93.1 Estimated GFR > 60 Fasting Glucose 103 H Calcium 8.6 D Total Bilirubin 0.3 AST 24 ALT 15 Alkaline Phosphatase 108 Total Protein 7.3 Albumin 3.5 Triglycerides 75 Cholesterol 151 LDL Cholesterol, Calc 95 HDL Cholesterol 41 Meds/Allergies Meds Home Medications ?Medication ?Instructions ?Recorded ?Confirmed ?Type albuterol sulfate 90 mcg/actuation 2 puff inhalation Q6H PRN wheezing 05/21/24 05/21/24 History aerosol inhaler chlorpromazine 50 mg tablet 50 mg PO Q4H PRN Agitation 05/21/24 05/21/24 History doxepin 10 mg capsule 20 mg PO BEDTIME 05/21/24 05/21/24 History hydroxyzine pamoate 50 mg capsule 50 mg PO Q4H PRN anxiety 05/21/24 05/21/24 History methadone 10 mg/mL oral syringe 100 mg PO DAILY 05/21/24 05/21/24 History (FOR ORAL USE ONLY) pramipexole 0.125 mg tablet 0.125 mg PO BEDTIME 05/21/24 05/21/24 History prazosin 1 mg capsule 4 mg PO BEDTIME 05/21/24 05/21/24 History quetiapine 200 mg tablet 200 mg PO BEDTIME 05/21/24 05/21/24 History quetiapine 50 mg tablet 50 mg PO QAM 05/21/24 05/21/24 History sertraline 100 mg tablet 100 mg PO QAM 05/21/24 05/21/24 History Allergies Allergies Allergy/AdvReac Type Severity Reaction Status Date / Time Penicillins Allergy Intermediate HIVES Verified 03/14/24 15:53 Mental Status Exam Mental Status Exam Patient Appearance: Fatigued Patient Orientation: Person, Place, Time and Situation Level of Consciousness: Alert Patient Behavior: Appropriate, Talkative, Cooperative, Good Eye Contact and Crying Mood Description: Depressed, Anxious and Flat Affect Description: Flat Patient Cognition Impaired: No Speech Pattern: Spontaneous Speech Memory Description: Intact Hallucinations: None Delusions: Not Present Perceptual Disturbances: Depersonalization and Derealization Thought Process: Rumination Thought Content: positive for Circumstantial, positive for Perseveration and positive for Suicidal Ideation Depressive Symptoms: Feelings of Worthlessness, Hopelessness, Unhappiness, Thoughts of /Suicide and Difficulty Concentrating Judgement: Fair Assessment & Plan Assessment & Plan (1) Recurrent major depression: Status: Acute Code(s): F33.9 - Major depressive disorder, recurrent, unspecified (2) Acute stress disorder: Status: Acute Code(s): F43.0 - Acute stress reaction (3) PTSD (post-traumatic stress disorder): Status: Acute Code(s): F43.10 - Post-traumatic stress disorder, unspecified (4) Polysubstance use disorder: Status: Inactive Code(s): F19.90 - Other psychoactive substance use, unspecified, uncomplicated Plan Recurrent Major Depression, Acute Stress Disorder, Post Traumatic Stress Disorder, Polysubstance Use Disorder. Plan: Admit, CV, 15 minute checks Continue current regime Collateral contacts. Full milieu encouraged TSH, B12, Folate, Lipid Panel, A1C Patient educated on: therapeutic strategies Reason for continued inpatient stay Substantial Risk for: rapid decompensation Statement Statement: I have reviewed the history and physical and performed a pertinent examination on my patient. No changes have occurred unless specified. If the History and Physical was not performed prior to admission, the Hospitalist's service will be consulted for completing the admission physical. Time Spent With Patient Time: Total time managing care of this patient today ____ minutes.
[2024-05-22] MEDS: Nicotine 21 MG PATCH.TD24 TRANSDERMA (15:14)
[2024-05-22] MEDS: chlorproMAZINE HCl 25 MG TABLET 50 MG PO (15:18)
--- NOTE | 2024-05-22 17:31 | HO.PM.IMCN ---
History of Present Illness Data of Consult Service Date: 05/22/24 Primary Care Provider: None Physician HPI Reason for consult: Admission H&P Pt is a 44-year-old female with a PMH significant for?asthma opiate use disorder, depression, and anxiety who is admitted to [facility] unit for increased depression with SI with plan to overdose, which was, in part, prompted by seeing bug crawling on her bed in the [place] she [place] staying at, which aggravated her anxiety and depression. Medical consult for admission H&P. ?Patient complains only of increased anxiety, denies any other acute medical complaints at this time. States only PMH is of asthma. Reports using asthma inhaler nearly every day. Has not smoked in many months. Denies shortness of breath or difficulty breathing. No chest pain/pressure, palpitations. Denies fever, chills, nausea, vomiting, diarrhea, abdominal pain. No headache or acute vision changes. BMP reviewed, grossly unremarkable. Review of Systems Review of Systems: Increased anxiety Patient otherwise has no acute medical complaints at this time [facility] Medical History (Updated 05/22/24 @ 18:43 by NICOL Torres) Asthma PTSD (post-traumatic stress disorder) Recurrent major depression Social History Household Members: None Housing: Other Housing Other:: TRAILER Do you presently have visiting nurse or other home services: No Alcohol intake: current Alcohol intake frequency: a few times a week Patient Tobacco Use Status: Current everyday Tobacco user Tobacco use type: Cigarette Smoked in Last 30 Days: Yes Patient Interested in Nicotine Replacement: Yes Patient Given Instructions on How to Stop Smoking: No (PATIENT DECLINED) Use of substances other than those prescribed or required for medical reasons: Yes Substance Use Type: Crack/Cocaine, Marijuana and Opiates Last Used Substance: Just Prior to Admission Last Used Substance Other:: FENTANYL, COCAINE, CANNABIS Currently Displaying Signs/Symptoms of Drug Intoxication Withdrawal: No Any prior treatment program specific to substance use: Yes ([facility], [facility]) Do you feel safe in your current relationship?: No Current Relationship Is there a partner from a previous relationship who is making you feel unsafe now?: No Are you made to feel afraid or neglected: No Advance Directives: No Advance Directives Information Provided: No Do you have thoughts of harming others: None Do you have a plan to hurt others: No Plan Recently lost weight without trying: No Patient : No : No Poor oral hygiene: No service: No Sexual orientation: Straight/Heterosexual Meds Allergies Allergy/AdvReac Type Severity Reaction Status Date / Time Penicillins Allergy Intermediate HIVES Verified 03/14/24 15:53 Active Medications: Current Medications Acetaminophen (Acetaminophen 325 Mg Tablet) 650 mg PO Q6H PRN PRN Reason: Headache/Pain Mild Scale (1-3) Al Hydroxide/Mg Hydroxide (Magnesium Hydrox/Alum Hydrox 30 Ml Oral.Susp) 30 ml PO Q6H PRN PRN Reason: Heartburn/Nausea Albuterol Sulfate (Albuterol Sulfate 90 Mcg 8 Gm Inhaler) 2 puff INHALE Q6H PRN PRN Reason: wheezing Chlorpromazine HCl (Chlorpromazine Hcl 25 Mg Tablet) 50 mg PO Q4H PRN PRN Reason: Agitation Last Admin: 05/22/24 15:18 Dose: 50 mg Cyclobenzaprine HCl (Cyclobenzaprine Hcl 10 Mg Tablet) 10 mg PO TID PRN PRN Reason: Back pain Last Admin: 05/22/24 15:14 Dose: 10 mg Doxepin HCl (Doxepin Hcl 10 Mg Capsule) 20 mg PO BEDTIME IJEOMA Last Admin: 05/21/24 21:25 Dose: 20 mg Hydroxyzine HCl (Hydroxyzine Hcl 25 Mg Tablet) 25 mg PO Q6H PRN PRN Reason: Anxiety Last Admin: 05/22/24 10:26 Dose: 25 mg Magnesium Hydroxide (Milk Of Magnesia 30 Ml Oral.Susp) 30 ml PO DAILY PRN PRN Reason: Constipation Methadone HCl (Methadone Hcl 20 Mg/2 Ml Oral.Conc) 100 mg PO DAILY [facility] Last Admin: 05/22/24 07:40 Dose: 100 mg Nicotine (Nicotine 21 Mg Patch.Td24) 21 mg TRANSDERMA DAILY PRN PRN Reason: nicotine cravings Last Admin: 05/22/24 15:14 Dose: 21 mg Nicotine Polacrilex (Nicotine Polacrilex Lozenge 4 Mg Lozenge) 4 mg BUCCAL Q2H PRN PRN Reason: Nicotine Cravings Pramipexole Dihydrochloride (Pramipexole Di-Hcl 0.125 Mg Tablet) 0.125 mg PO BEDTIME IJEOMA Last Admin: 05/21/24 21:25 Dose: 0.125 mg Prazosin HCl (Prazosin Hcl 1 Mg Capsule) 4 mg PO BEDTIME [facility]; Protocol Last Admin: 05/21/24 21:25 Dose: 4 mg Quetiapine Fumarate (Quetiapine Fumarate 50 Mg Tablet) 50 mg PO DAILY [facility] Last Admin: 05/22/24 10:26 Dose: 50 mg Quetiapine Fumarate (Quetiapine Fumarate 200 Mg Tablet) 200 mg PO BEDTIME IJEOMA Last Admin: 05/21/24 21:25 Dose: 200 mg Sertraline HCl (Sertraline Hcl 100 Mg Tablet) 100 mg PO DAILY [facility] Last Admin: 05/22/24 10:26 Dose: 100 mg Trazodone HCl (Trazodone Hcl 50 Mg Tablet) 50 mg PO BEDTIME MRX1 PRN PRN Reason: Insomnia Home Medications ?Medication ?Instructions ?Recorded ?Confirmed ?Last Taken ?Type albuterol sulfate 90 mcg/actuation 2 puff inhalation Q6H PRN wheezing 05/21/24 05/21/24 Unknown History aerosol inhaler chlorpromazine 50 mg tablet 50 mg PO Q4H PRN Agitation 05/21/24 05/21/24 Unknown History doxepin 10 mg capsule 20 mg PO BEDTIME 05/21/24 05/21/24 Unknown History hydroxyzine pamoate 50 mg capsule 50 mg PO Q4H PRN anxiety 05/21/24 05/21/24 Unknown History methadone 10 mg/mL oral syringe 100 mg PO DAILY 05/21/24 05/21/24 05/21/24 11:30 History (FOR ORAL USE ONLY) pramipexole 0.125 mg tablet 0.125 mg PO BEDTIME 05/21/24 05/21/24 Unknown History prazosin 1 mg capsule 4 mg PO BEDTIME 05/21/24 05/21/24 Unknown History quetiapine 200 mg tablet 200 mg PO BEDTIME 05/21/24 05/21/24 Unknown History quetiapine 50 mg tablet 50 mg PO QAM 05/21/24 05/21/24 Unknown History sertraline 100 mg tablet 100 mg PO QAM 05/21/24 05/21/24 Unknown History Physical Exam Vital Signs and Narrative: Vital Signs: Last Vital Signs Temp 98 F 05/22/24 08:00 Pulse 62 05/22/24 08:00 Resp 16 05/22/24 08:00 BP 117/56 L 05/22/24 08:00 Pulse Ox 97 05/22/24 08:00 O2 Del Method Room Air 05/22/24 08:00 BMI result Body Mass Index 34.1 General: AOx3, no acute distress Resp: Mild expiratory wheezing bilaterally CVS: S1, S2, RRR GI: +BS, NT, no distention Skin: Warm, dry Neuro: Cranial nerves II-XII grossly intact bilaterally. Motor grossly intact bilaterally. Mild resting tremors of upper extremities noted. Extremities: No edema Psych: Flat affect Results Labs 05/22/24 08:24 Labs: Laboratory Results - last 24 hr 05/22/24 08:24 Anion Gap 14 Estim Creat Clear Calc 93.1 Estimated GFR > 60 Fasting Glucose 103 H Calcium 8.6 D Total Bilirubin 0.3 AST 24 ALT 15 Alkaline Phosphatase 108 Total Protein 7.3 Albumin 3.5 Triglycerides 75 Cholesterol 151 LDL Cholesterol, Calc 95 HDL Cholesterol 41 Assessment and Plan (1) Medical clearance for psychiatric admission: Status: Acute Plan Pt is a 44-year-old female with a PMH significant for?asthma opiate use disorder, depression, and anxiety who is admitted to [facility] unit for increased depression with SI with plan to overdose. Patient also reports she has been staying in a motel lately and apparently saw bugs on her bed which increased her anxiety and depression. Medical consult for admission H&P. Mood disorder Plan as per Psychiatry Asthma Mild expiratory wheezing upon auscultation Not in acute exacerbation Continue home inhaler Opiate use disorder Continue methadone Resting tremors Continue pramipexole Thank you for allowing us to participate in the care of this patient. Signing off at this time. Please re-consult if any acute complaints or issues arise.
[2024-05-22 20:00] VITALS: BP 116/57; PULSE 69; RESP 15; TEMP 36.5; O2SAT 94
[2024-05-22] MEDS: Prazosin HCL 1 MG CAPSULE 4 MG PO (20:33)
[2024-05-22] MEDS: Doxepin HCl 10 MG CAPSULE 20 MG PO (20:33)
[2024-05-22] MEDS: QUEtiapine Fumarate 200 MG TABLET PO (20:33)
[2024-05-22] MEDS: Pramipexole Di-HCL 0.125 MG TABLET PO (20:34)
[2024-05-23 07:45] LABS: Estimated Average Glucose 94 mg/dL; Hemoglobin A1c % 4.9 % (<6.0)
[2024-05-23 07:57] LABS: Cholesterol 144 mg/dL (<200); HDL Cholesterol 40 mg/dL (>40); LDL Cholesterol Calculated 89 mg/dL (<100); Triglycerides 75 mg/dL (<150)
[2024-05-23] MEDS: methADONE HCl 20 MG/2 ML ORAL.CONC 100 MG PO (07:57)
[2024-05-23 08:00] VITALS: BP 117/63; PULSE 62; RESP 16; TEMP 36.4; O2SAT 97
[2024-05-23 08:12] LABS: Thyroid Stimulating Hormone 0.73 uIU/mL (0.32-4.0)
[2024-05-23 08:27] LABS: Folate 13.3 ng/mL (> or = 4.0); Vitamin B12 280 pg/mL (200-900)
--- NOTE | 2024-05-23 09:19 | HO.PSYCHPN ---
Subjective Subjective Date of Service: 05/23/24 Reason For Visit: mood disorder Subjective Notes: Section 12B Interim History: Patient was seen and discussed in rounds today. Records and plans were reviewed. She is settling in. She continues to be withdrawn with flat affect. Generally guarded. Medication compliant. Not attending groups. Has poor ADLs. Continues to have passive SI with no plans or intent. No dangerous behaviors. No complaints or side effects. Review of Systems Review of Systems Yes all other systems are reviewed and are negative Mental Status Exam Mental Status Exam Narrative: In today's visit she is alert, pleasant and minimally interactive. Normal speech. Moderate eye contact. Affect is constricted. No acute signs of psychosis. Passive SI with no plans or intent. No delusions. No abnormalities of gait. No musculoskeletal problems. Cognitively is grossly intact. Judgment is intact Diagnostics Vital Signs (24Hr): Vital Signs - 24 hr 05/22/24 20:00 Temperature 97.7 F Pulse Rate 69 Respiratory Rate 15 Blood Pressure 116/57 L Pulse Oximetry 94 BMI result Body Mass Index 34.1 Labs 05/22/24 08:24 Labs: Laboratory Results - last 48 hr 05/22/24 05/23/24 08:24 07:11 Sodium 139 Potassium 3.8 Chloride 104 Carbon Dioxide 25 Anion Gap 14 BUN 6 L Creatinine 0.77 Estim Creat Clear Calc 93.1 Estimated GFR > 60 Fasting Glucose 103 H Estimat Average Glucose 94 Hemoglobin A1c % 4.9 Calcium 8.6 D Total Bilirubin 0.3 AST 24 ALT 15 Alkaline Phosphatase 108 Total Protein 7.3 Albumin 3.5 Triglycerides 75 75 Cholesterol 151 144 LDL Cholesterol, Calc 95 89 HDL Cholesterol 41 40 L Vitamin B12 280 Folate 13.3 TSH 0.73 Medications Medications Current Medications Acetaminophen (Acetaminophen 325 Mg Tablet) 650 mg PO Q6H PRN PRN Reason: Headache/Pain Mild Scale (1-3) Al Hydroxide/Mg Hydroxide (Magnesium Hydrox/Alum Hydrox 30 Ml Oral.Susp) 30 ml PO Q6H PRN PRN Reason: Heartburn/Nausea Albuterol Sulfate (Albuterol Sulfate 90 Mcg 8 Gm Inhaler) 2 puff INHALE Q6H PRN PRN Reason: wheezing Chlorpromazine HCl (Chlorpromazine Hcl 25 Mg Tablet) 50 mg PO Q4H PRN PRN Reason: Agitation Last Admin: 05/22/24 15:18 Dose: 50 mg Cyclobenzaprine HCl (Cyclobenzaprine Hcl 10 Mg Tablet) 10 mg PO TID PRN PRN Reason: Back pain Last Admin: 05/22/24 20:37 Dose: 10 mg Doxepin HCl (Doxepin Hcl 10 Mg Capsule) 20 mg PO BEDTIME [facility] Last Admin: 05/22/24 20:33 Dose: 20 mg Hydroxyzine HCl (Hydroxyzine Hcl 25 Mg Tablet) 25 mg PO Q6H PRN PRN Reason: Anxiety Last Admin: 05/22/24 10:26 Dose: 25 mg Magnesium Hydroxide (Milk Of Magnesia 30 Ml Oral.Susp) 30 ml PO DAILY PRN PRN Reason: Constipation Methadone HCl (Methadone Hcl 20 Mg/2 Ml Oral.Conc) 100 mg PO DAILY [facility] Last Admin: 05/23/24 07:57 Dose: 100 mg Nicotine (Nicotine 21 Mg Patch.Td24) 21 mg TRANSDERMA DAILY PRN PRN Reason: nicotine cravings Last Admin: 05/22/24 15:14 Dose: 21 mg Nicotine Polacrilex (Nicotine Polacrilex Lozenge 4 Mg Lozenge) 4 mg BUCCAL Q2H PRN PRN Reason: Nicotine Cravings Pramipexole Dihydrochloride (Pramipexole Di-Hcl 0.125 Mg Tablet) 0.125 mg PO BEDTIME [facility] Last Admin: 05/22/24 20:34 Dose: 0.125 mg Prazosin HCl (Prazosin Hcl 1 Mg Capsule) 4 mg PO BEDTIME [facility]; Protocol Last Admin: 05/22/24 20:33 Dose: 4 mg Quetiapine Fumarate (Quetiapine Fumarate 50 Mg Tablet) 50 mg PO DAILY [facility] Last Admin: 05/22/24 10:26 Dose: 50 mg Quetiapine Fumarate (Quetiapine Fumarate 200 Mg Tablet) 200 mg PO BEDTIME [facility] Last Admin: 05/22/24 20:33 Dose: 200 mg Sertraline HCl (Sertraline Hcl 100 Mg Tablet) 100 mg PO DAILY [facility] Last Admin: 05/22/24 10:26 Dose: 100 mg Trazodone HCl (Trazodone Hcl 50 Mg Tablet) 50 mg PO BEDTIME MRX1 PRN PRN Reason: Insomnia Allergies Allergies Allergy/AdvReac Type Severity Reaction Status Date / Time Penicillins Allergy Intermediate HIVES Verified 03/14/24 15:53 Assessment & Plan Assessment & Plan (1) Medical clearance for psychiatric admission: Status: Acute Code(s): Z00.8 - Encounter for other general examination Plan Pt is a 44-year-old female with a PMH significant for?asthma opiate use disorder, depression, and anxiety who is admitted to [facility] unit for increased depression with SI with plan to overdose. Patient also reports she has been staying in a motel lately and apparently saw bugs on her bed which increased her anxiety and depression. Medical consult for admission H&P. Mood disorder Plan as per Psychiatry Asthma Mild expiratory wheezing upon auscultation Not in acute exacerbation Continue home inhaler Opiate use disorder Continue methadone Resting tremors Continue pramipexole 05/23: Continue current regimen and plans Thank you for allowing us to participate in the care of this patient. Signing off at this time. Please re-consult if any acute complaints or issues arise. Reason for continued inpatient stay Substantial Risk for: harm to self and med/psych decompensation Time Spent With Patient Time: Total time managing care of this patient today ____ minutes.
[2024-05-23] MEDS: chlorproMAZINE HCl 25 MG TABLET 50 MG PO ×2 (09:26→15:03)
[2024-05-23] MEDS: QUEtiapine Fumarate 50 MG TABLET PO (09:26)
[2024-05-23] MEDS: Cyclobenzaprine HCl 10 MG TABLET PO ×3 (09:26→21:48)
[2024-05-23] MEDS: Nicotine 21 MG PATCH.TD24 TRANSDERMA (09:27)
[2024-05-23] MEDS: Sertraline HCL 100 MG TABLET PO (09:30)
[2024-05-23 20:00] VITALS: BP 106/52; PULSE 84; TEMP 36.2
[2024-05-23] MEDS: Doxepin HCl 10 MG CAPSULE 20 MG PO (21:37)
[2024-05-23] MEDS: Pramipexole Di-HCL 0.125 MG TABLET PO (21:37)
[2024-05-23 21:38] VITALS: BP 105/52
[2024-05-23] MEDS: Prazosin HCL 1 MG CAPSULE 4 MG PO (21:38)
[2024-05-23] MEDS: QUEtiapine Fumarate 200 MG TABLET PO (21:38)
[2024-05-23] MEDS: hydrOXYzine HCL 25 MG TABLET PO (21:48)
[2024-05-23] MEDS: traZODone HCL 50 MG TABLET PO (21:49)
[2024-05-24] MEDS: methADONE HCl 20 MG/2 ML ORAL.CONC 100 MG PO (07:41)
--- NOTE | 2024-05-24 07:53 | HO.PSYCHPN ---
Subjective Subjective Date of Service: 05/24/24 Reason For Visit: mood disorder Subjective Notes: Section 12B Interim History: Patient was seen and discussed in rounds today. Records and plans were reviewed. She continues to endorse depression and anxiety. Passive suicidal ideations reported. Affect is flat. Mostly isolative. No groups attended. Reports AVH. PRNs used with benefits. Eating and sleeping adequately. Mostly in her room. No changes were made today Medication Compliance: Yes Attending Groups: No Review of Systems Acute medical concerns: No Review of Systems Review of Systems Yes all other systems are reviewed and are negative Mental Status Exam Mental Status Exam Narrative: In today's visit she is alert, pleasant and minimally interactive. Normal speech. Little eye contact. Affect is constricted and flat. No acute signs of psychosis. Passive SI with no plans or intent. No delusions. No abnormalities of gait. No musculoskeletal problems. Cognitively is grossly intact. Judgment is intact Diagnostics Vital Signs (24Hr): Vital Signs - 24 hr 05/23/24 08:00 05/23/24 20:00 05/23/24 21:38 Temperature 97.5 F 97.2 F Pulse Rate 62 84 Respiratory Rate 16 Blood Pressure 117/63 106/52 L 105/52 L Pulse Oximetry 97 Oxygen Delivery Method Room Air BMI result Body Mass Index 34.1 Labs 05/22/24 08:24 Labs: Laboratory Results - last 48 hr 05/22/24 05/23/24 08:24 07:11 Sodium 139 Potassium 3.8 Chloride 104 Carbon Dioxide 25 Anion Gap 14 BUN 6 L Creatinine 0.77 Estim Creat Clear Calc 93.1 Estimated GFR > 60 Fasting Glucose 103 H Estimat Average Glucose 94 Hemoglobin A1c % 4.9 Calcium 8.6 D Total Bilirubin 0.3 AST 24 ALT 15 Alkaline Phosphatase 108 Total Protein 7.3 Albumin 3.5 Triglycerides 75 75 Cholesterol 151 144 LDL Cholesterol, Calc 95 89 HDL Cholesterol 41 40 L Vitamin B12 280 Folate 13.3 TSH 0.73 Medications Medications Current Medications Acetaminophen (Acetaminophen 325 Mg Tablet) 650 mg PO Q6H PRN PRN Reason: Headache/Pain Mild Scale (1-3) Al Hydroxide/Mg Hydroxide (Magnesium Hydrox/Alum Hydrox 30 Ml Oral.Susp) 30 ml PO Q6H PRN PRN Reason: Heartburn/Nausea Albuterol Sulfate (Albuterol Sulfate 90 Mcg 8 Gm Inhaler) 2 puff INHALE Q6H PRN PRN Reason: wheezing Chlorpromazine HCl (Chlorpromazine Hcl 25 Mg Tablet) 50 mg PO Q4H PRN PRN Reason: Agitation Last Admin: 05/23/24 15:03 Dose: 50 mg Cyclobenzaprine HCl (Cyclobenzaprine Hcl 10 Mg Tablet) 10 mg PO TID PRN PRN Reason: Back pain Last Admin: 05/23/24 21:48 Dose: 10 mg Doxepin HCl (Doxepin Hcl 10 Mg Capsule) 20 mg PO BEDTIME IJEOMA Last Admin: 05/23/24 21:37 Dose: 20 mg Hydroxyzine HCl (Hydroxyzine Hcl 25 Mg Tablet) 25 mg PO Q6H PRN PRN Reason: Anxiety Last Admin: 05/23/24 21:48 Dose: 25 mg Magnesium Hydroxide (Milk Of Magnesia 30 Ml Oral.Susp) 30 ml PO DAILY PRN PRN Reason: Constipation Methadone HCl (Methadone Hcl 20 Mg/2 Ml Oral.Conc) 100 mg PO DAILY [facility] Last Admin: 05/24/24 07:41 Dose: 100 mg Nicotine (Nicotine 21 Mg Patch.Td24) 21 mg TRANSDERMA DAILY PRN PRN Reason: nicotine cravings Last Admin: 05/23/24 09:27 Dose: 21 mg Nicotine Polacrilex (Nicotine Polacrilex Lozenge 4 Mg Lozenge) 4 mg BUCCAL Q2H PRN PRN Reason: Nicotine Cravings Pramipexole Dihydrochloride (Pramipexole Di-Hcl 0.125 Mg Tablet) 0.125 mg PO BEDTIME IJEOMA Last Admin: 05/23/24 21:37 Dose: 0.125 mg Prazosin HCl (Prazosin Hcl 1 Mg Capsule) 4 mg PO BEDTIME [facility]EOMA; Protocol Last Admin: 05/23/24 21:38 Dose: 4 mg Quetiapine Fumarate (Quetiapine Fumarate 50 Mg Tablet) 50 mg PO DAILY [facility] Last Admin: 05/23/24 09:26 Dose: 50 mg Quetiapine Fumarate (Quetiapine Fumarate 200 Mg Tablet) 200 mg PO BEDTIME IJEOMA Last Admin: 05/23/24 21:38 Dose: 200 mg Sertraline HCl (Sertraline Hcl 100 Mg Tablet) 100 mg PO DAILY [facility] Last Admin: 05/23/24 09:30 Dose: 100 mg Trazodone HCl (Trazodone Hcl 50 Mg Tablet) 50 mg PO BEDTIME MRX1 PRN PRN Reason: Insomnia Last Admin: 05/23/24 21:49 Dose: 50 mg Allergies Allergies Allergy/AdvReac Type Severity Reaction Status Date / Time Penicillins Allergy Intermediate HIVES Verified 03/14/24 15:53 Assessment & Plan Assessment & Plan (1) Medical clearance for psychiatric admission: Status: Acute Code(s): Z00.8 - Encounter for other general examination Plan Pt is a 44-year-old female with a PMH significant for?asthma opiate use disorder, depression, and anxiety who is admitted to [facility] unit for increased depression with SI with plan to overdose. Patient also reports she has been staying in a motel lately and apparently saw bugs on her bed which increased her anxiety and depression. Medical consult for admission H&P. Mood disorder Plan as per Psychiatry Asthma Mild expiratory wheezing upon auscultation Not in acute exacerbation Continue home inhaler Opiate use disorder Continue methadone Resting tremors Continue pramipexole 05/23: Continue current regimen and plans 05/24: Continue current regimen and planslan Thank you for allowing us to participate in the care of this patient. Signing off at this time. Please re-consult if any acute complaints or issues arise. Reason for continued inpatient stay Substantial Risk for: med/psych decompensation Time Spent With Patient Time: Total time managing care of this patient today ____ minutes.
[2024-05-24] MEDS: Sertraline HCL 100 MG TABLET PO (09:07)
[2024-05-24] MEDS: QUEtiapine Fumarate 50 MG TABLET PO (09:07)
[2024-05-24] MEDS: Nicotine 21 MG PATCH.TD24 TRANSDERMA (09:07)
[2024-05-24 09:37] VITALS: BP 119/70; PULSE 74; RESP 16; TEMP 36.7; O2SAT 99
[2024-05-24 19:38] VITALS: BP 117/58; PULSE 71; RESP 14; TEMP 36.4; O2SAT 98
[2024-05-24] MEDS: Doxepin HCl 10 MG CAPSULE 20 MG PO (21:41)
[2024-05-24] MEDS: Pramipexole Di-HCL 0.125 MG TABLET PO (21:41)
[2024-05-24] MEDS: Prazosin HCL 1 MG CAPSULE 4 MG PO (21:41)
[2024-05-24] MEDS: QUEtiapine Fumarate 200 MG TABLET PO (21:41)
[2024-05-24] MEDS: Cyclobenzaprine HCl 10 MG TABLET PO (21:44)
[2024-05-25] MEDS: methADONE HCl 20 MG/2 ML ORAL.CONC 100 MG PO (07:41)
[2024-05-25 08:00] VITALS: BP 124/59; PULSE 59; RESP 16; TEMP 36.6; O2SAT 97
[2024-05-25] MEDS: hydrOXYzine HCL 25 MG TABLET PO (09:06)
[2024-05-25] MEDS: Sertraline HCL 100 MG TABLET PO (09:07)
[2024-05-25] MEDS: chlorproMAZINE HCl 25 MG TABLET 50 MG PO ×2 (09:07→15:38)
[2024-05-25] MEDS: QUEtiapine Fumarate 50 MG TABLET PO ×2 (09:07→15:37)
[2024-05-25] MEDS: Cyclobenzaprine HCl 10 MG TABLET PO ×3 (09:07→21:01)
[2024-05-25] MEDS: Nicotine 21 MG PATCH.TD24 TRANSDERMA (09:10)
--- NOTE | 2024-05-25 15:34 | HO.PSYCHPN ---
Subjective Subjective Date of Service: 05/25/24 Reason For Visit: mood disorder Subjective Notes: Section 12B Healthcare Proxy: No Guardianship: No Medical Problems Affecting Mental Status: No Interim History: I would like to sign in and work on problems. Pt signed conditional voluntary. Reports intermittent voices CAH with SI. Reports an increase in sleep. Review of medications, discussed prn Seroquel and increase of Sertraline. Pt wanting to engage more in milieu and secure out pt referrals and is considering PHP. 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 Mental Status Exam Mental Status Exam Patient Appearance: Appropriate Patient Orientation: Person, Place, Time and Situation Level of Consciousness: Alert Patient Behavior: Appropriate, Talkative, Cooperative and Good Eye Contact Mood Description: Depressed Affect Description: Flat Patient Cognition Impaired: No Ability to Follow Directions: Good Speech Pattern: Spontaneous Speech Memory Description: Intact Hallucinations: Auditory (CAH at times to suicide) Delusions: Not Present Perceptual Disturbances: Depersonalization and Derealization Thought Process: Rumination Thought Content: positive for Perseveration Depressive Symptoms: Increased Anxiety, Sleeping More Than Usual and Thoughts of /Suicide Judgement: Fair Diagnostics Vital Signs (24Hr): Vital Signs - 24 hr 05/24/24 19:38 05/25/24 08:00 Temperature 97.6 F 97.9 F Pulse Rate 71 59 Respiratory Rate 14 16 Blood Pressure 117/58 L 124/59 L Pulse Oximetry 98 97 Oxygen Delivery Method Room Air BMI result Body Mass Index 34.1 Labs 05/22/24 08:24 Medications Medications Current Medications Acetaminophen (Acetaminophen 325 Mg Tablet) 650 mg PO Q6H PRN PRN Reason: Headache/Pain Mild Scale (1-3) Al Hydroxide/Mg Hydroxide (Magnesium Hydrox/Alum Hydrox 30 Ml Oral.Susp) 30 ml PO Q6H PRN PRN Reason: Heartburn/Nausea Albuterol Sulfate (Albuterol Sulfate 90 Mcg 8 Gm Inhaler) 2 puff INHALE Q6H PRN PRN Reason: wheezing Chlorpromazine HCl (Chlorpromazine Hcl 25 Mg Tablet) 50 mg PO Q4H PRN PRN Reason: Agitation Last Admin: 05/25/24 09:07 Dose: 50 mg Cyclobenzaprine HCl (Cyclobenzaprine Hcl 10 Mg Tablet) 10 mg PO TID PRN PRN Reason: Back pain Last Admin: 05/25/24 09:07 Dose: 10 mg Doxepin HCl (Doxepin Hcl 10 Mg Capsule) 20 mg PO BEDTIME [facility]JOMA Last Admin: 05/24/24 21:41 Dose: 20 mg Hydroxyzine HCl (Hydroxyzine Hcl 25 Mg Tablet) 25 mg PO Q6H PRN PRN Reason: Anxiety Last Admin: 05/25/24 09:06 Dose: 25 mg Magnesium Hydroxide (Milk Of Magnesia 30 Ml Oral.Susp) 30 ml PO DAILY PRN PRN Reason: Constipation Methadone HCl (Methadone Hcl 20 Mg/2 Ml Oral.Conc) 100 mg PO DAILY [facility] Last Admin: 05/25/24 07:41 Dose: 100 mg Nicotine (Nicotine 21 Mg Patch.Td24) 21 mg TRANSDERMA DAILY PRN PRN Reason: nicotine cravings Last Admin: 05/25/24 09:10 Dose: 21 mg Nicotine Polacrilex (Nicotine Polacrilex Lozenge 4 Mg Lozenge) 4 mg BUCCAL Q2H PRN PRN Reason: Nicotine Cravings Pramipexole Dihydrochloride (Pramipexole Di-Hcl 0.125 Mg Tablet) 0.125 mg PO BEDTIME [facility] Last Admin: 05/24/24 21:41 Dose: 0.125 mg Prazosin HCl (Prazosin Hcl 1 Mg Capsule) 4 mg PO BEDTIME [facility]; Protocol Last Admin: 05/24/24 21:41 Dose: 4 mg Quetiapine Fumarate (Quetiapine Fumarate 200 Mg Tablet) 200 mg PO BEDTIME [facility] Last Admin: 05/24/24 21:41 Dose: 200 mg Quetiapine Fumarate (Quetiapine Fumarate 50 Mg Tablet) 50 mg PO BID@0900,1400 IJEOMA Quetiapine Fumarate (Quetiapine Fumarate 50 Mg Tablet) 50 mg PO TID PRN PRN Reason: anxiety, agitation Sertraline HCl (Sertraline Hcl 50 Mg Tablet) 150 mg PO DAILY [facility] Trazodone HCl (Trazodone Hcl 50 Mg Tablet) 50 mg PO BEDTIME MRX1 PRN PRN Reason: Insomnia Last Admin: 05/23/24 21:49 Dose: 50 mg Allergies Allergies Allergy/AdvReac Type Severity Reaction Status Date / Time Penicillins Allergy Intermediate HIVES Verified 03/14/24 15:53 Assessment & Plan Assessment & Plan (1) PTSD (post-traumatic stress disorder): Status: Acute Code(s): F43.10 - Post-traumatic stress disorder, unspecified (2) Acute stress disorder: Status: Acute Code(s): F43.0 - Acute stress reaction (3) Recurrent major depression: Status: Acute Code(s): F33.9 - Major depressive disorder, recurrent, unspecified (4) Polysubstance use disorder: Status: Acute Code(s): F19.90 - Other psychoactive substance use, unspecified, uncomplicated Plan Recurrent major depression, ASD, PTSD, Polysubstance Use Disorder 05/23: Continue current regimen and plans 05/24: Continue current regimen and plan 05/25: Pt will accept out patient referrals. She is considering PHP She signed a conditional voluntary today Increase Sertraline to 150 mg daily Add prn Seroquel Patient educated on: medication risk/benefits and therapeutic strategies Reason for continued inpatient stay Substantial Risk for: rapid decompensation Time Spent With Patient Time: Total time managing care of this patient today ____ minutes.
[2024-05-25 19:58] VITALS: BP 116/65; PULSE 70; RESP 15; TEMP 36.6; O2SAT 97
[2024-05-25] MEDS: Prazosin HCL 1 MG CAPSULE 4 MG PO (21:00)
[2024-05-25] MEDS: Pramipexole Di-HCL 0.125 MG TABLET PO (21:01)
[2024-05-25] MEDS: Doxepin HCl 10 MG CAPSULE 20 MG PO (21:01)
[2024-05-25] MEDS: QUEtiapine Fumarate 200 MG TABLET PO (21:02)
--- NOTE | 2024-05-26 | ECG_ITS ---
Test Reason : Rule out QTc prolongation Blood Pressure : / mmHG Vent. Rate : 066 BPM Atrial Rate : 066 BPM P-R Int : 160 ms QRS Dur : 080 ms QT Int : 454 ms P-R-T Axes : 068 073 070 degrees QTc Int : 475 ms Normal sinus rhythm Normal ECG When compared with ECG of 21-JUL-2019 20:29, Vent. rate has decreased BY 45 BPM Referred By: Jocelyne Patel Electronically Signed By:BERNARDA MCHUGH
[2024-05-26 08:00] VITALS: BP 107/60; PULSE 58; RESP 18; TEMP 36.4; O2SAT 98
[2024-05-26] MEDS: methADONE HCl 20 MG/2 ML ORAL.CONC 100 MG PO (08:18)
[2024-05-26] MEDS: QUEtiapine Fumarate 50 MG TABLET PO ×2 (08:33→13:38)
[2024-05-26] MEDS: Sertraline HCL 50 MG TABLET 150 MG PO (08:33)
[2024-05-26] MEDS: Cyclobenzaprine HCl 10 MG TABLET PO ×2 (08:49→20:49)
[2024-05-26] MEDS: Acetaminophen 325 MG TABLET 650 MG PO (08:50)
[2024-05-26] MEDS: Nicotine 21 MG PATCH.TD24 TRANSDERMA (08:50)
--- NOTE | 2024-05-26 12:33 | HO.PSYCHPN ---
Subjective Subjective Date of Service: 05/26/24 Reason For Visit: mood disorder Subjective Notes: Conditional Voluntary Healthcare Proxy: No Guardianship: No Medical Problems Affecting Mental Status: No Interim History: Pt reports depressive sx persist. No groups yet today, I will try. Tolerating medication increase and prn Seroquel. Reports she is able to sleep, eat. Well engaged when we met. Denies current questions or concerns. Losses continue to be overwhelming for Rose and moving forward remains a difficult task. She is interested in a course of partial hospital program. Medication Compliance: Yes Side effects from medications: No Attending Groups: No Review of Systems Acute medical concerns: No Medical Review of Systems: unchanged Review of Systems Review of Systems chronic mcc back pain Mental Status Exam Mental Status Exam Patient Appearance: Appropriate Patient Orientation: Person, Place, Time and Situation Level of Consciousness: Alert Patient Behavior: Appropriate, Talkative, Cooperative and Good Eye Contact Mood Description: Depressed Affect Description: Flat Patient Cognition Impaired: No Ability to Follow Directions: Good Speech Pattern: Spontaneous Speech Memory Description: Intact Hallucinations: Auditory (CAH at times to suicide) Delusions: Not Present Perceptual Disturbances: Depersonalization and Derealization Thought Process: Rumination Thought Content: positive for Perseveration Depressive Symptoms: Increased Anxiety, Sleeping More Than Usual and Thoughts of /Suicide Judgement: Fair Diagnostics Vital Signs (24Hr): Vital Signs - 24 hr 05/25/24 19:58 05/26/24 08:00 Temperature 98 F 97.5 F Pulse Rate 70 58 Respiratory Rate 15 18 Blood Pressure 116/65 107/60 Pulse Oximetry 97 98 Oxygen Delivery Method Room Air BMI result Body Mass Index 34.1 Labs 05/22/24 08:24 Medications Medications Current Medications Acetaminophen (Acetaminophen 325 Mg Tablet) 650 mg PO Q6H PRN PRN Reason: Headache/Pain Mild Scale (1-3) Last Admin: 05/26/24 08:50 Dose: 650 mg Al Hydroxide/Mg Hydroxide (Magnesium Hydrox/Alum Hydrox 30 Ml Oral.Susp) 30 ml PO Q6H PRN PRN Reason: Heartburn/Nausea Albuterol Sulfate (Albuterol Sulfate 90 Mcg 8 Gm Inhaler) 2 puff INHALE Q6H PRN PRN Reason: wheezing Chlorpromazine HCl (Chlorpromazine Hcl 25 Mg Tablet) 50 mg PO Q4H PRN PRN Reason: Agitation Last Admin: 05/25/24 15:38 Dose: 50 mg Cyclobenzaprine HCl (Cyclobenzaprine Hcl 10 Mg Tablet) 10 mg PO TID PRN PRN Reason: Back pain Last Admin: 05/26/24 08:49 Dose: 10 mg Doxepin HCl (Doxepin Hcl 10 Mg Capsule) 20 mg PO BEDTIME [facility]EOMA Last Admin: 05/25/24 21:01 Dose: 20 mg Hydroxyzine HCl (Hydroxyzine Hcl 25 Mg Tablet) 25 mg PO Q6H PRN PRN Reason: Anxiety Last Admin: 05/25/24 09:06 Dose: 25 mg Magnesium Hydroxide (Milk Of Magnesia 30 Ml Oral.Susp) 30 ml PO DAILY PRN PRN Reason: Constipation Methadone HCl (Methadone Hcl 20 Mg/2 Ml Oral.Conc) 100 mg PO DAILY [facility] Last Admin: 05/26/24 08:18 Dose: 100 mg Nicotine (Nicotine 21 Mg Patch.Td24) 21 mg TRANSDERMA DAILY PRN PRN Reason: nicotine cravings Last Admin: 05/26/24 08:50 Dose: 21 mg Nicotine Polacrilex (Nicotine Polacrilex Lozenge 4 Mg Lozenge) 4 mg BUCCAL Q2H PRN PRN Reason: Nicotine Cravings Pramipexole Dihydrochloride (Pramipexole Di-Hcl 0.125 Mg Tablet) 0.125 mg PO BEDTIME [facility]EOMA Last Admin: 05/25/24 21:01 Dose: 0.125 mg Prazosin HCl (Prazosin Hcl 1 Mg Capsule) 4 mg PO BEDTIME [facility]EOMA; Protocol Last Admin: 05/25/24 21:00 Dose: 4 mg Quetiapine Fumarate (Quetiapine Fumarate 200 Mg Tablet) 200 mg PO BEDTIME [facility] Last Admin: 05/25/24 21:02 Dose: 200 mg Quetiapine Fumarate (Quetiapine Fumarate 50 Mg Tablet) 50 mg PO BID@0900,1400 [facility] Last Admin: 05/26/24 08:33 Dose: 50 mg Quetiapine Fumarate (Quetiapine Fumarate 50 Mg Tablet) 50 mg PO TID PRN PRN Reason: anxiety, agitation Sertraline HCl (Sertraline Hcl 50 Mg Tablet) 150 mg PO DAILY [facility] Last Admin: 05/26/24 08:33 Dose: 150 mg Trazodone HCl (Trazodone Hcl 50 Mg Tablet) 50 mg PO BEDTIME MRX1 PRN PRN Reason: Insomnia Last Admin: 05/23/24 21:49 Dose: 50 mg Allergies Allergies Allergy/AdvReac Type Severity Reaction Status Date / Time Penicillins Allergy Intermediate HIVES Verified 03/14/24 15:53 Assessment & Plan Assessment & Plan (1) Medical clearance for psychiatric admission: Status: Acute Code(s): Z00.8 - Encounter for other general examination Plan ASD, PTSD, Recurrent Major Depression, Polysubstance Use Disorder 05/23: Continue current regimen and plans 05/24: Continue current regimen and plan 05/26: EKG as Seroquel prn has been added. Reason for continued inpatient stay Substantial Risk for: rapid decompensation Time Spent With Patient Time: Total time managing care of this patient today ____ minutes.
[2024-05-26 20:00] VITALS: BP 97/48; PULSE 73; RESP 17; TEMP 36.6; O2SAT 96
[2024-05-26] MEDS: traZODone HCL 50 MG TABLET PO (20:49)
[2024-05-26] MEDS: QUEtiapine Fumarate 200 MG TABLET PO (20:50)
[2024-05-26] MEDS: hydrOXYzine HCL 25 MG TABLET PO (20:51)
[2024-05-26] MEDS: Doxepin HCl 10 MG CAPSULE 20 MG PO (20:51)
[2024-05-26] MEDS: Pramipexole Di-HCL 0.125 MG TABLET PO (20:51)
[2024-05-26] MEDS: chlorproMAZINE HCl 25 MG TABLET 50 MG PO (20:51)
[2024-05-26 21:07] VITALS: BP 126/60
[2024-05-26] MEDS: Prazosin HCL 1 MG CAPSULE 4 MG PO (21:07)
[2024-05-26 21:25] VITALS: BP 126/60
[2024-05-27] MEDS: methADONE HCl 20 MG/2 ML ORAL.CONC 100 MG PO (07:55)
[2024-05-27 08:00] VITALS: BP 119/58; PULSE 61; RESP 16; TEMP 36.4; O2SAT 98
[2024-05-27] MEDS: methADONE HCl 20 MG/2 ML ORAL.CONC PO (09:14)
[2024-05-27] MEDS: Cyclobenzaprine HCl 10 MG TABLET PO ×2 (09:14→15:26)
[2024-05-27] MEDS: Sertraline HCL 50 MG TABLET 150 MG PO (09:15)
[2024-05-27] MEDS: Nicotine 21 MG PATCH.TD24 TRANSDERMA (09:19)
[2024-05-27] MEDS: chlorproMAZINE HCl 25 MG TABLET 50 MG PO ×3 (09:20→21:09)
[2024-05-27] MEDS: QUEtiapine Fumarate 50 MG TABLET PO ×2 (09:27→15:26)
--- NOTE | 2024-05-27 11:14 | HO.PSYCHPN ---
Subjective Subjective Date of Service: 05/27/24 Reason For Visit: mood disorder Subjective Notes: Conditional Voluntary Healthcare Proxy: No Guardianship: No Medical Problems Affecting Mental Status: No Interim History: Isolative. Reports back pain 8-10, depressive, anxious sx. I am trying to get to groups. Discussed mood stabilizer trial for sx of anxiety, she is in agreement. Sleep/Appetite intact. Denies SI/HI/AH/VH. Talked of her grief and not knowing how to go on without her family being here. Medication Compliance: Yes Side effects from medications: No Attending Groups: No Review of Systems Acute medical concerns: No Medical Review of Systems: unchanged Review of Systems Review of Systems back pain Mental Status Exam Mental Status Exam Patient Appearance: Appropriate Patient Orientation: Person, Place, Time and Situation Level of Consciousness: Alert Patient Behavior: Appropriate, Talkative, Cooperative and Good Eye Contact Mood Description: Depressed Affect Description: Flat Patient Cognition Impaired: No Ability to Follow Directions: Good Speech Pattern: Spontaneous Speech Memory Description: Intact Hallucinations: Auditory (CAH at times to suicide) Delusions: Not Present Perceptual Disturbances: Depersonalization and Derealization Thought Process: Rumination Thought Content: positive for Perseveration Depressive Symptoms: Increased Anxiety, Sleeping More Than Usual and Thoughts of /Suicide Judgement: Fair Diagnostics Vital Signs (24Hr): Vital Signs - 24 hr 05/26/24 20:00 05/26/24 21:07 05/26/24 21:25 Temperature 97.9 F Pulse Rate 73 Respiratory Rate 17 Blood Pressure 97/48 L 126/60 126/60 Pulse Oximetry 96 Oxygen Delivery Method Room Air 05/27/24 08:00 Temperature 97.6 F Pulse Rate 61 Respiratory Rate 16 Blood Pressure 119/58 L Pulse Oximetry 98 Oxygen Delivery Method Room Air BMI result Body Mass Index 34.1 Labs 05/22/24 08:24 Medications Medications Current Medications Acetaminophen (Acetaminophen 325 Mg Tablet) 650 mg PO Q6H PRN PRN Reason: Headache/Pain Mild Scale (1-3) Last Admin: 05/26/24 08:50 Dose: 650 mg Al Hydroxide/Mg Hydroxide (Magnesium Hydrox/Alum Hydrox 30 Ml Oral.Susp) 30 ml PO Q6H PRN PRN Reason: Heartburn/Nausea Albuterol Sulfate (Albuterol Sulfate 90 Mcg 8 Gm Inhaler) 2 puff INHALE Q6H PRN PRN Reason: wheezing Chlorpromazine HCl (Chlorpromazine Hcl 25 Mg Tablet) 50 mg PO Q4H PRN PRN Reason: Agitation Last Admin: 05/27/24 09:20 Dose: 50 mg Cyclobenzaprine HCl (Cyclobenzaprine Hcl 10 Mg Tablet) 10 mg PO TID PRN PRN Reason: Back pain Last Admin: 05/27/24 09:14 Dose: 10 mg Doxepin HCl (Doxepin Hcl 10 Mg Capsule) 20 mg PO BEDTIME IJEOMA Last Admin: 05/26/24 20:51 Dose: 20 mg Hydroxyzine HCl (Hydroxyzine Hcl 25 Mg Tablet) 25 mg PO Q6H PRN PRN Reason: Anxiety Last Admin: 05/26/24 20:51 Dose: 25 mg Magnesium Hydroxide (Milk Of Magnesia 30 Ml Oral.Susp) 30 ml PO DAILY PRN PRN Reason: Constipation Methadone HCl (Methadone Hcl 20 Mg/2 Ml Oral.Conc) 100 mg PO DAILY [facility] Last Admin: 05/27/24 07:55 Dose: 80 mg Nicotine (Nicotine 21 Mg Patch.Td24) 21 mg TRANSDERMA DAILY PRN PRN Reason: nicotine cravings Last Admin: 05/27/24 09:19 Dose: 21 mg Nicotine Polacrilex (Nicotine Polacrilex Lozenge 4 Mg Lozenge) 4 mg BUCCAL Q2H PRN PRN Reason: Nicotine Cravings Pramipexole Dihydrochloride (Pramipexole Di-Hcl 0.125 Mg Tablet) 0.125 mg PO BEDTIME [facility] Last Admin: 05/26/24 20:51 Dose: 0.125 mg Prazosin HCl (Prazosin Hcl 1 Mg Capsule) 4 mg PO BEDTIME IJEOMA; Protocol Last Admin: 05/26/24 21:07 Dose: 4 mg Quetiapine Fumarate (Quetiapine Fumarate 200 Mg Tablet) 200 mg PO BEDTIME IJEOMA Last Admin: 05/26/24 20:50 Dose: 200 mg Quetiapine Fumarate (Quetiapine Fumarate 50 Mg Tablet) 50 mg PO BID@0900,1400 [facility] Last Admin: 05/27/24 09:27 Dose: 50 mg Quetiapine Fumarate (Quetiapine Fumarate 50 Mg Tablet) 50 mg PO TID PRN PRN Reason: anxiety, agitation Sertraline HCl (Sertraline Hcl 50 Mg Tablet) 150 mg PO DAILY [facility] Last Admin: 05/27/24 09:15 Dose: 150 mg Trazodone HCl (Trazodone Hcl 50 Mg Tablet) 50 mg PO BEDTIME MRX1 PRN PRN Reason: Insomnia Last Admin: 05/26/24 20:49 Dose: 50 mg Allergies Allergies Allergy/AdvReac Type Severity Reaction Status Date / Time Penicillins Allergy Intermediate HIVES Verified 03/14/24 15:53 Assessment & Plan Assessment & Plan (1) Medical clearance for psychiatric admission: Status: Acute Code(s): Z00.8 - Encounter for other general examination Plan ASD, PTSD, Recurrent Major Depression, Polysubstance Use Disorder 05/23: Continue current regimen and plans 05/24: Continue current regimen and plan 05/26: EKG as Seroquel prn has been added. 05/27: Continue tx Trileptal 300 mg bid-targeting anxiety Reason for continued inpatient stay Substantial Risk for: rapid decompensation Time Spent With Patient Time: Total time managing care of this patient today ____ minutes.
[2024-05-27 19:53] VITALS: BP 119/68; PULSE 70; RESP 18; TEMP 36.4; O2SAT 99
[2024-05-27] MEDS: Doxepin HCl 10 MG CAPSULE 20 MG PO (21:07)
[2024-05-27] MEDS: Pramipexole Di-HCL 0.125 MG TABLET PO (21:08)
[2024-05-27] MEDS: Prazosin HCL 1 MG CAPSULE 4 MG PO (21:08)
[2024-05-27] MEDS: OXcarbazepine 300 MG TABLET PO (21:08)
[2024-05-27] MEDS: traZODone HCL 50 MG TABLET PO (21:09)
[2024-05-27] MEDS: hydrOXYzine HCL 25 MG TABLET PO (21:09)
[2024-05-27] MEDS: QUEtiapine Fumarate 200 MG TABLET PO (21:09)
[2024-05-28] MEDS: methADONE HCl 20 MG/2 ML ORAL.CONC 100 MG PO (07:49)
[2024-05-28 08:00] VITALS: BP 110/55; PULSE 64; RESP 16; TEMP 36.3; O2SAT 99
[2024-05-28] MEDS: Nicotine 21 MG PATCH.TD24 TRANSDERMA (09:27)
[2024-05-28] MEDS: QUEtiapine Fumarate 50 MG TABLET PO ×3 (09:27→20:41)
[2024-05-28] MEDS: OXcarbazepine 300 MG TABLET PO ×2 (09:28→20:41)
[2024-05-28] MEDS: Sertraline HCL 50 MG TABLET 150 MG PO (09:28)
--- NOTE | 2024-05-28 10:29 | HO.PSYCHPN ---
Subjective Subjective Date of Service: 05/28/24 Reason For Visit: mood disorder Subjective Notes: Conditional Voluntary Healthcare Proxy: No Guardianship: No Medical Problems Affecting Mental Status: No Interim History: Continues with isolation, not attending milieu activity. Identifies social anxiety as a factor. Encouraged to attempt to join briefly for art, a meal or a TV program. I will try . Reports some decrease in sx. Denies SI/HI today. Medication Compliance: Yes Side effects from medications: No Attending Groups: No Review of Systems Acute medical concerns: No Medical Review of Systems: unchanged Review of Systems Review of Systems back pain Mental Status Exam Mental Status Exam Patient Appearance: Appropriate Patient Orientation: Person, Place, Time and Situation Level of Consciousness: Alert Patient Behavior: Appropriate, Talkative, Cooperative and Good Eye Contact Mood Description: Depressed Affect Description: Flat Patient Cognition Impaired: No Ability to Follow Directions: Good Speech Pattern: Spontaneous Speech Memory Description: Intact Hallucinations: Auditory (CAH at times to suicide) Delusions: Not Present Perceptual Disturbances: Depersonalization and Derealization Thought Process: Rumination Thought Content: positive for Perseveration Depressive Symptoms: Increased Anxiety and Sleeping More Than Usual Judgement: Fair Diagnostics Vital Signs (24Hr): Vital Signs - 24 hr 05/27/24 19:53 05/28/24 08:00 Temperature 97.5 F 97.4 F Pulse Rate 70 64 Respiratory Rate 18 16 Blood Pressure 119/68 110/55 L Pulse Oximetry 99 99 Oxygen Delivery Method Room Air Room Air BMI result Body Mass Index 34.1 Labs 05/22/24 08:24 Medications Medications Current Medications Acetaminophen (Acetaminophen 325 Mg Tablet) 650 mg PO Q6H PRN PRN Reason: Headache/Pain Mild Scale (1-3) Last Admin: 05/26/24 08:50 Dose: 650 mg Al Hydroxide/Mg Hydroxide (Magnesium Hydrox/Alum Hydrox 30 Ml Oral.Susp) 30 ml PO Q6H PRN PRN Reason: Heartburn/Nausea Albuterol Sulfate (Albuterol Sulfate 90 Mcg 8 Gm Inhaler) 2 puff INHALE Q6H PRN PRN Reason: wheezing Chlorpromazine HCl (Chlorpromazine Hcl 25 Mg Tablet) 50 mg PO Q4H PRN PRN Reason: Agitation Last Admin: 05/27/24 21:09 Dose: 50 mg Cyclobenzaprine HCl (Cyclobenzaprine Hcl 10 Mg Tablet) 10 mg PO TID PRN PRN Reason: Back pain Last Admin: 05/27/24 15:26 Dose: 10 mg Doxepin HCl (Doxepin Hcl 10 Mg Capsule) 20 mg PO BEDTIME [facility] Last Admin: 05/27/24 21:07 Dose: 20 mg Hydroxyzine HCl (Hydroxyzine Hcl 25 Mg Tablet) 25 mg PO Q6H PRN PRN Reason: Anxiety Last Admin: 05/27/24 21:09 Dose: 25 mg Magnesium Hydroxide (Milk Of Magnesia 30 Ml Oral.Susp) 30 ml PO DAILY PRN PRN Reason: Constipation Methadone HCl (Methadone Hcl 20 Mg/2 Ml Oral.Conc) 100 mg PO DAILY [facility] Last Admin: 05/28/24 07:49 Dose: 100 mg Nicotine (Nicotine 21 Mg Patch.Td24) 21 mg TRANSDERMA DAILY PRN PRN Reason: nicotine cravings Last Admin: 05/28/24 09:27 Dose: 21 mg Nicotine Polacrilex (Nicotine Polacrilex Lozenge 4 Mg Lozenge) 4 mg BUCCAL Q2H PRN PRN Reason: Nicotine Cravings Oxcarbazepine (Oxcarbazepine 300 Mg Tablet) 300 mg PO BID [facility] Last Admin: 05/28/24 09:28 Dose: 300 mg Pramipexole Dihydrochloride (Pramipexole Di-Hcl 0.125 Mg Tablet) 0.125 mg PO BEDTIME IJEOMA Last Admin: 05/27/24 21:08 Dose: 0.125 mg Prazosin HCl (Prazosin Hcl 1 Mg Capsule) 4 mg PO BEDTIME [facility]EOMA; Protocol Last Admin: 05/27/24 21:08 Dose: 4 mg Quetiapine Fumarate (Quetiapine Fumarate 200 Mg Tablet) 200 mg PO BEDTIME [facility] Last Admin: 05/27/24 21:09 Dose: 200 mg Quetiapine Fumarate (Quetiapine Fumarate 50 Mg Tablet) 50 mg PO BID@0900,1400 [facility] Last Admin: 05/28/24 09:27 Dose: 50 mg Quetiapine Fumarate (Quetiapine Fumarate 50 Mg Tablet) 50 mg PO TID PRN PRN Reason: anxiety, agitation Sertraline HCl (Sertraline Hcl 50 Mg Tablet) 150 mg PO DAILY [facility] Last Admin: 05/28/24 09:28 Dose: 150 mg Trazodone HCl (Trazodone Hcl 50 Mg Tablet) 50 mg PO BEDTIME MRX1 PRN PRN Reason: Insomnia Last Admin: 05/27/24 21:09 Dose: 50 mg Allergies Allergies Allergy/AdvReac Type Severity Reaction Status Date / Time Penicillins Allergy Intermediate HIVES Verified 03/14/24 15:53 Assessment & Plan Assessment & Plan (1) Medical clearance for psychiatric admission: Status: Acute Code(s): Z00.8 - Encounter for other general examination Plan ASD, PTSD, Recurrent Major Depression, Polysubstance Use Disorder 05/23: Continue current regimen and plans 05/24: Continue current regimen and plan 05/26: EKG as Seroquel prn has been added. 05/28: Ibuprofen prn for back pain Tolerating Trileptal trial Reason for continued inpatient stay Substantial Risk for: rapid decompensation Time Spent With Patient Time: Total time managing care of this patient today ____ minutes.
[2024-05-28 20:00] VITALS: BP 122/70; PULSE 75; RESP 17; TEMP 36.5; O2SAT 100
[2024-05-28] MEDS: Doxepin HCl 10 MG CAPSULE 20 MG PO (20:41)
[2024-05-28] MEDS: Acetaminophen 325 MG TABLET 650 MG PO (20:41)
[2024-05-28 20:42] VITALS: BP 122/70
[2024-05-28] MEDS: Pramipexole Di-HCL 0.125 MG TABLET PO (20:42)
[2024-05-28] MEDS: traZODone HCL 50 MG TABLET PO (20:42)
[2024-05-28] MEDS: Prazosin HCL 1 MG CAPSULE 4 MG PO (20:42)
[2024-05-28] MEDS: Cyclobenzaprine HCl 10 MG TABLET PO (20:42)
[2024-05-28] MEDS: QUEtiapine Fumarate 200 MG TABLET PO (20:43)
[2024-05-28] MEDS: chlorproMAZINE HCl 25 MG TABLET 50 MG PO (20:52)
[2024-05-28] MEDS: hydrOXYzine HCL 25 MG TABLET PO (20:52)
[2024-05-29 08:00] VITALS: BP 119/57; PULSE 64; RESP 16; TEMP 36.7; O2SAT 98
[2024-05-29] MEDS: methADONE HCl 20 MG/2 ML ORAL.CONC 100 MG PO (08:04)
[2024-05-29] MEDS: Sertraline HCL 50 MG TABLET 150 MG PO (09:08)
[2024-05-29] MEDS: QUEtiapine Fumarate 50 MG TABLET PO ×3 (09:08→21:19)
[2024-05-29] MEDS: OXcarbazepine 300 MG TABLET PO (09:08)
[2024-05-29] MEDS: Cyclobenzaprine HCl 10 MG TABLET PO ×2 (09:08→14:36)
[2024-05-29] MEDS: chlorproMAZINE HCl 25 MG TABLET 50 MG PO ×3 (09:08→18:14)
[2024-05-29] MEDS: Nicotine 21 MG PATCH.TD24 TRANSDERMA (09:09)
--- NOTE | 2024-05-29 13:54 | P.PNPSI_ITS ---
Subjective Subjective Date of Service: 05/29/24 Reason For Visit: mood disorder Interim History: Met with patient; discussed with team; reviewed chart Patient reports that she has been quite depressed; she says her mood improved for 1 day and she had less anxiety, attended to ADLs but returned has been present for the past 2 days. She denies any SI. Patient says that the Seroquel and Zoloft were started at [facility]; she says that there she was still depressed but was overall feeling better enough to discharge. She said post discharge she had a manic episode and then got depressed. Reviewed history with patient; she reports being sober for 7 years, relapsed this past February when her mother (and then for 2 weeks) in past, while sober she reports history of manic episodes that can last anywhere from 3-7 days; episodes include episodes of talking fast, lots of activity...shopping sprees, buying excessive amount of scratch tickets...mind racing, having a lot of energy, not sleeping at all for 2-3 days and then very little for subsequent days... hanging around friends I should not be with (who shoplifters...) and which resulted in relapse.... Patient reports her friends notice these changes in her behavior. After such an episode, patient gets very depressed. She says this post manic depression is what resulted in this admission to [place]. Patient reports many past hospitalizations for depression often happen after a manic episode; she says some duration of manic episode happens about twice a month. Initially patient was reticent to talk about AVH; however she opened up and reports that daily she experiences AH telling her to pull her hair, to do things to hurt self; if her on people the voice will say that people are talking about her... She thinks that this is real and has a hard time ignoring it; she was however open to considering it might be her mind playing tricks on her because of mental illness. Patient reports that her Mother had Schizoaffective disorder, bipolar type (Schizophrenia with manic episodes). Discussed medication management for symptoms and reviewed risks/side-effects of Vraylar and pt willing to start will dc Trileptal; just started 2 days ago; no effect yet discussed insomnia; she thinks Trazodone may work if 100mg; will schedule Trazodone and make Seroquel 200mg a prn for continued insomnia (goal to only be on 1 antipsychotic) Med trials: Seroquel Ayde Risperdone Depakote Mental Status Exam Mental Status Exam Narrative: Pt is alert and oriented; behavior is cooperative, friendly and calm; patient is not in distress; dressed in hospital attire, disheveled; mood is described as Depressed.. Anxious and affect congruent; eye contact appropriate; Speech is a little slowed and a little soft; normal prosody; psychomotor retardation present; thought process is organized and goal directed; Thought content is on depressive symptoms, what people think about her, AH, tx; some paranoid delusional content secondary to AH present; denies any SI/HI. Intermittent AH throughout the day. Patients insight and judgment impaired. Diagnostics Vital Signs (24Hr): Vital Signs - 24 hr 05/28/24 20:00 05/28/24 20:42 05/29/24 08:00 Temperature 97.7 F 98.1 F Pulse Rate 75 64 Respiratory Rate 17 16 Blood Pressure 122/70 122/70 119/57 L Pulse Oximetry 100 98 Oxygen Delivery Method Room Air Room Air BMI result Body Mass Index 34.1 Labs 05/22/24 08:24 Medications Medications Current Medications Acetaminophen (Acetaminophen 325 Mg Tablet) 650 mg PO Q6H PRN PRN Reason: Headache/Pain Mild Scale (1-3) Last Admin: 05/28/24 20:41 Dose: 650 mg Al Hydroxide/Mg Hydroxide (Magnesium Hydrox/Alum Hydrox 30 Ml Oral.Susp) 30 ml PO Q6H PRN PRN Reason: Heartburn/Nausea Albuterol Sulfate (Albuterol Sulfate 90 Mcg 8 Gm Inhaler) 2 puff INHALE Q6H PRN PRN Reason: wheezing Chlorpromazine HCl (Chlorpromazine Hcl 25 Mg Tablet) 50 mg PO Q4H PRN PRN Reason: Agitation Last Admin: 05/29/24 09:08 Dose: 50 mg Cyclobenzaprine HCl (Cyclobenzaprine Hcl 10 Mg Tablet) 10 mg PO TID PRN PRN Reason: Back pain Last Admin: 05/29/24 09:08 Dose: 10 mg Doxepin HCl (Doxepin Hcl 10 Mg Capsule) 20 mg PO BEDTIME IJEOMA Last Admin: 05/28/24 20:41 Dose: 20 mg Hydroxyzine HCl (Hydroxyzine Hcl 25 Mg Tablet) 25 mg PO Q6H PRN PRN Reason: Anxiety Last Admin: 05/28/24 20:52 Dose: 25 mg Ibuprofen (Ibuprofen 800 Mg Tablet) 800 mg PO Q8H PRN PRN Reason: Back pain Magnesium Hydroxide (Milk Of Magnesia 30 Ml Oral.Susp) 30 ml PO DAILY PRN PRN Reason: Constipation Methadone HCl (Methadone Hcl 20 Mg/2 Ml Oral.Conc) 100 mg PO DAILY [facility] Last Admin: 05/29/24 08:04 Dose: 100 mg Nicotine (Nicotine 21 Mg Patch.Td24) 21 mg TRANSDERMA DAILY PRN PRN Reason: nicotine cravings Last Admin: 05/29/24 09:09 Dose: 21 mg Nicotine Polacrilex (Nicotine Polacrilex Lozenge 4 Mg Lozenge) 4 mg BUCCAL Q2H PRN PRN Reason: Nicotine Cravings Oxcarbazepine (Oxcarbazepine 300 Mg Tablet) 300 mg PO BID [facility] Last Admin: 05/29/24 09:08 Dose: 300 mg Pramipexole Dihydrochloride (Pramipexole Di-Hcl 0.125 Mg Tablet) 0.125 mg PO BEDTIME [facility] Last Admin: 05/28/24 20:42 Dose: 0.125 mg Prazosin HCl (Prazosin Hcl 1 Mg Capsule) 4 mg PO BEDTIME [facility]; Protocol Last Admin: 05/28/24 20:42 Dose: 4 mg Quetiapine Fumarate (Quetiapine Fumarate 200 Mg Tablet) 200 mg PO BEDTIME [facility] Last Admin: 05/28/24 20:43 Dose: 200 mg Quetiapine Fumarate (Quetiapine Fumarate 50 Mg Tablet) 50 mg PO BID@0900,1400 [facility] Last Admin: 05/29/24 09:08 Dose: 50 mg Quetiapine Fumarate (Quetiapine Fumarate 50 Mg Tablet) 50 mg PO TID PRN PRN Reason: anxiety, agitation Last Admin: 05/28/24 20:41 Dose: 50 mg Sertraline HCl (Sertraline Hcl 50 Mg Tablet) 150 mg PO DAILY [facility] Last Admin: 05/29/24 09:08 Dose: 150 mg Trazodone HCl (Trazodone Hcl 50 Mg Tablet) 50 mg PO BEDTIME MRX1 PRN PRN Reason: Insomnia Last Admin: 05/28/24 20:42 Dose: 50 mg Allergies Allergies Allergy/AdvReac Type Severity Reaction Status Date / Time Penicillins Allergy Intermediate HIVES Verified 03/14/24 15:53 Assessment & Plan Assessment & Plan (1) Schizoaffective disorder, bipolar type: Status: Acute Code(s): F25.0 - Schizoaffective disorder, bipolar type (2) Acute stress disorder: Status: Acute Code(s): F43.0 - Acute stress reaction (3) Opioid use disorder: Status: Acute Code(s): F11.90 - Opioid use, unspecified, uncomplicated Plan ASD, PTSD, Recurrent Major Depression, Polysubstance Use Disorder; also manic episodes; AH independent of mood Hospital course: 05/23: Continue current regimen and plans 05/24: Continue current regimen and plan 05/26: EKG as Seroquel prn has been added. 05/28: Ibuprofen prn for back pain Tolerating Trileptal trial 05/29 reviewed history and it seems that patient meets criteria for schizoaffective disorder, bipolar type. Patient reports that she has been quite depressed; she says her mood improved for 1 day and she had less anxiety, attended to ADLs but returned has been present for the past 2 days. She denies any SI. Patient says that the Seroquel and Zoloft were started at [facility]; she says that there she was still depressed but was overall feeling better enough to discharge. She said post discharge she had a manic episode and then got depressed. Reviewed history with patient: Patient reports being sober for 7 years, relapsed this past February when her mother (and then for 2 weeks) in past, while sober she reports history of manic episodes that can last anywhere from 3-7 days; episodes include episodes of talking fast, lots of activity...shopping sprees, buying excessive amount of scratch tickets...mind racing, having a lot of energy, not sleeping at all for 2-3 days and then very little for subsequent days... hanging around friends I should not be with (who shoplifters...) and which resulted in relapse.... Patient reports her friends notice these changes in her behavior. After such an episode, patient gets very depressed. She says this post manic depression is what resulted in this admission to [place]. Patient reports many past hospitalizations for depression often happen after a manic episode; she says some duration of manic episode happens about twice a month. Regarding history of depression, patient reports that medications have been partially helpful but depression remains. Initially patient was reticent to talk about AVH; however she opened up and reports that daily she experiences AH telling her to pull her hair, to do things to hurt self; if her on people the voice will say that people are talking about her... She thinks that this is real and has a hard time ignoring it; she was however open to considering it might be her mind playing tricks on her because of mental illness. She reports presence of AH independent of mood. Patient reports that her Mother had Schizoaffective disorder, bipolar type (Schizophrenia with manic episodes). Discussed medication management for symptoms and reviewed risks/side-effects of Vraylar and pt willing to start (considered lithium; patient does not remember if past med trials were helpful) will dc Trileptal; just started 2 days ago; no effect yet discussed insomnia; she thinks Trazodone may work if 100mg; will schedule Trazodone and make Seroquel 200mg a prn for continued insomnia (goal to only be on 1 antipsychotic) Plan: CV Q 15 minute checks Start Vraylar 1.5 mg daily; will likely titrate Discontinue Trileptal; just started 2 days ago and no effect yet; replacing with Vraylar Continue Zoloft 150 mg; recently titrated Continue doxepin Continue prazosin Will make Seroquel 200 mg q.h.s. a p.r.n. for continued insomnia; will instead see if patient can sleep on trazodone in an effort to have patient on only 1 antipsychotic Scheduled trazodone 100 mg q.h.s.; patient says 50 mg not enough History of Med trials: Seroquel Ayde Risperdone [place] Patient educated on: diagnosis, medication risk/benefits, substance abuse and therapeutic strategies Informed Consent: understands Reason for continued inpatient stay Substantial Risk for: rapid decompensation Time Spent With Patient Time: Total time managing care of this patient today ____ minutes.
[2024-05-29] MEDS: Cariprazine HCl 1.5 MG CAPSULE PO (18:09)
[2024-05-29 20:00] VITALS: BP 109/58; PULSE 74; RESP 14; TEMP 36.8; O2SAT 98
[2024-05-29] MEDS: Prazosin HCL 1 MG CAPSULE 4 MG PO (21:19)
[2024-05-29] MEDS: Doxepin HCl 10 MG CAPSULE 20 MG PO (21:19)
[2024-05-29] MEDS: Pramipexole Di-HCL 0.125 MG TABLET PO (21:19)
[2024-05-29] MEDS: traZODone HCL 100 MG TABLET PO (21:19)
[2024-05-30] MEDS: methADONE HCl 20 MG/2 ML ORAL.CONC 100 MG PO (07:43)
[2024-05-30 08:00] VITALS: BP 133/74; PULSE 61; RESP 16; TEMP 36.5; O2SAT 98
[2024-05-30] MEDS: Sertraline HCL 50 MG TABLET 150 MG PO (08:42)
[2024-05-30] MEDS: Cariprazine HCl 1.5 MG CAPSULE PO ×2 (08:42→11:42)
[2024-05-30] MEDS: QUEtiapine Fumarate 50 MG TABLET PO ×3 (08:43→20:38)
[2024-05-30] MEDS: Nicotine 21 MG PATCH.TD24 TRANSDERMA (08:46)
--- NOTE | 2024-05-30 09:55 | HO.PSYCHPN ---
Subjective Subjective Date of Service: 05/30/24 Reason For Visit: mood disorder Interim History: Met with patient; discussed with team still AH, no changes but no side-effects; still depressed and hard to do ADL's but is forcing herself to shower agrees to increased vraylar says slept well enough on trazodone; asks for extra PRN trazodone since woke up and hard to fall back to sleep Mental Status Exam Mental Status Exam Narrative: Pt is alert and oriented; behavior is cooperative, friendly and calm; patient is not in distress; dressed in hospital attire, disheveled; mood is described as Depressed.. Anxious and affect congruent; eye contact appropriate; Speech is a little slowed and a little soft; normal prosody; psychomotor retardation present; thought process is organized and goal directed; Thought content is on depressive symptoms, what people think about her, AH, tx; some paranoid delusional content secondary to AH present; denies any SI/HI. Intermittent AH throughout the day. Patients insight and judgment impaired. Diagnostics Vital Signs (24Hr): Vital Signs - 24 hr 05/29/24 20:00 05/30/24 08:00 Temperature 98.3 F 97.7 F Pulse Rate 74 61 Respiratory Rate 14 16 Blood Pressure 109/58 L 133/74 Pulse Oximetry 98 98 Oxygen Delivery Method Room Air Room Air BMI result Body Mass Index 34.1 Labs 05/22/24 08:24 Medications Medications Current Medications Acetaminophen (Acetaminophen 325 Mg Tablet) 650 mg PO Q6H PRN PRN Reason: Headache/Pain Mild Scale (1-3) Last Admin: 05/28/24 20:41 Dose: 650 mg Al Hydroxide/Mg Hydroxide (Magnesium Hydrox/Alum Hydrox 30 Ml Oral.Susp) 30 ml PO Q6H PRN PRN Reason: Heartburn/Nausea Albuterol Sulfate (Albuterol Sulfate 90 Mcg 8 Gm Inhaler) 2 puff INHALE Q6H PRN PRN Reason: wheezing Cariprazine (Cariprazine Hcl 1.5 Mg Capsule) 1.5 mg PO DAILY IJEOMA Last Admin: 05/30/24 08:42 Dose: 1.5 mg Chlorpromazine HCl (Chlorpromazine Hcl 25 Mg Tablet) 50 mg PO Q4H PRN PRN Reason: Agitation Last Admin: 05/29/24 18:14 Dose: 50 mg Cyclobenzaprine HCl (Cyclobenzaprine Hcl 10 Mg Tablet) 10 mg PO TID PRN PRN Reason: Back pain Last Admin: 05/29/24 14:36 Dose: 10 mg Doxepin HCl (Doxepin Hcl 10 Mg Capsule) 20 mg PO BEDTIME IJEOMA Last Admin: 05/29/24 21:19 Dose: 20 mg Hydroxyzine HCl (Hydroxyzine Hcl 25 Mg Tablet) 25 mg PO Q6H PRN PRN Reason: Anxiety Last Admin: 05/28/24 20:52 Dose: 25 mg Ibuprofen (Ibuprofen 800 Mg Tablet) 800 mg PO Q8H PRN PRN Reason: Back pain Magnesium Hydroxide (Milk Of Magnesia 30 Ml Oral.Susp) 30 ml PO DAILY PRN PRN Reason: Constipation Methadone HCl (Methadone Hcl 20 Mg/2 Ml Oral.Conc) 100 mg PO DAILY [facility] Last Admin: 05/30/24 07:43 Dose: 100 mg Nicotine (Nicotine 21 Mg Patch.Td24) 21 mg TRANSDERMA DAILY PRN PRN Reason: nicotine cravings Last Admin: 05/30/24 08:46 Dose: 21 mg Nicotine Polacrilex (Nicotine Polacrilex Lozenge 4 Mg Lozenge) 4 mg BUCCAL Q2H PRN PRN Reason: Nicotine Cravings Pramipexole Dihydrochloride (Pramipexole Di-Hcl 0.125 Mg Tablet) 0.125 mg PO BEDTIME [facility] Last Admin: 05/29/24 21:19 Dose: 0.125 mg Prazosin HCl (Prazosin Hcl 1 Mg Capsule) 4 mg PO BEDTIME IJEOMA; Protocol Last Admin: 05/29/24 21:19 Dose: 4 mg Quetiapine Fumarate (Quetiapine Fumarate 50 Mg Tablet) 50 mg PO BID@0900,1400 [facility] Last Admin: 05/30/24 08:43 Dose: 50 mg Quetiapine Fumarate (Quetiapine Fumarate 50 Mg Tablet) 50 mg PO TID PRN PRN Reason: anxiety, agitation Last Admin: 05/29/24 21:19 Dose: 50 mg Quetiapine Fumarate (Quetiapine Fumarate 200 Mg Tablet) 200 mg PO BEDTIME PRN PRN Reason: continued insomnia Sertraline HCl (Sertraline Hcl 50 Mg Tablet) 150 mg PO DAILY [facility] Last Admin: 05/30/24 08:42 Dose: 150 mg Trazodone HCl (Trazodone Hcl 100 Mg Tablet) 100 mg PO BEDTIME IJEOMA Last Admin: 05/29/24 21:19 Dose: 100 mg Allergies Allergies Allergy/AdvReac Type Severity Reaction Status Date / Time Penicillins Allergy Intermediate HIVES Verified 03/14/24 15:53 Assessment & Plan Assessment & Plan (1) Schizoaffective disorder, bipolar type: Status: Acute Code(s): F25.0 - Schizoaffective disorder, bipolar type (2) Acute stress disorder: Status: Acute Code(s): F43.0 - Acute stress reaction (3) Opioid use disorder: Status: Acute Code(s): F11.90 - Opioid use, unspecified, uncomplicated Plan ASD, PTSD, Recurrent Major Depression, Polysubstance Use Disorder; also manic episodes; AH independent of mood Hospital course: 05/23: Continue current regimen and plans 05/24: Continue current regimen and plan 05/26: EKG as Seroquel prn has been added. 05/28: Ibuprofen prn for back pain Tolerating Trileptal trial 05/29 reviewed history and it seems that patient meets criteria for schizoaffective disorder, bipolar type. Patient reports that she has been quite depressed; she says her mood improved for 1 day and she had less anxiety, attended to ADLs but returned has been present for the past 2 days. She denies any SI. Patient says that the Seroquel and Zoloft were started at [facility]; she says that there she was still depressed but was overall feeling better enough to discharge. She said post discharge she had a manic episode and then got depressed. Reviewed history with patient: Patient reports being sober for 7 years, relapsed this past February when her mother (and then for 2 weeks) in past, while sober she reports history of manic episodes that can last anywhere from 3-7 days; episodes include episodes of talking fast, lots of activity...shopping sprees, buying excessive amount of scratch tickets...mind racing, having a lot of energy, not sleeping at all for 2-3 days and then very little for subsequent days... hanging around friends I should not be with (who shoplifters...) and which resulted in relapse.... Patient reports her friends notice these changes in her behavior. After such an episode, patient gets very depressed. She says this post manic depression is what resulted in this admission to [place]. Patient reports many past hospitalizations for depression often happen after a manic episode; she says some duration of manic episode happens about twice a month. Regarding history of depression, patient reports that medications have been partially helpful but depression remains. -Patient reports that her Mother had Schizoaffective disorder, bipolar type (Schizophrenia with manic episodes). Initially patient was reticent to talk about AVH; however she opened up and reports that daily she experiences AH telling her to pull her hair, to do things to hurt self; if her on people the voice will say that people are talking about her... She thinks that this is real and has a hard time ignoring it; she was however open to considering it might be her mind playing tricks on her because of mental illness. She reports presence of AH independent of mood. Discussed medication management for symptoms and reviewed risks/side-effects of Vraylar and pt willing to start (considered lithium; patient does not remember if past med trials were helpful) will dc Trileptal; just started 2 days ago; no effect yet discussed insomnia; she thinks Trazodone may work if 100mg; will schedule Trazodone and make Seroquel 200mg a prn for continued insomnia (goal to only be on 1 antipsychotic) 05/30 still AH, no changes but no side-effects; still depressed and hard to do ADL's but is forcing herself to shower agrees to increased vraylar; says slept well enough on trazodone; asks for extra PRN trazodone since waking at night. Plan: CV Q 15 minute checks Increase to Vraylar 3 mg daily; (gave extra 1.5 today) Discontinue Trileptal; just started 2 days ago and no effect yet; replacing with Vraylar Continue Zoloft 150 mg; recently titrated Continue doxepin Continue prazosin DC Seroquel 200 mg q.h.s; trazodone effective (and avoiding pt being on 2 antipsychotics) Scheduled trazodone 100 mg q.h.s.; Extra 50mg prn available History of Med trials: Seroquel Abilify Risperdone Depakote Patient educated on: diagnosis and medication risk/benefits Informed Consent: understands Reason for continued inpatient stay Substantial Risk for: rapid decompensation Time Spent With Patient Time: Total time managing care of this patient today ____ minutes.
[2024-05-30 19:58] VITALS: BP 130/67; PULSE 69; RESP 16; TEMP 36.4; O2SAT 99
[2024-05-30] MEDS: Doxepin HCl 10 MG CAPSULE 20 MG PO (20:38)
[2024-05-30] MEDS: traZODone HCL 100 MG TABLET PO (20:38)
[2024-05-30] MEDS: Pramipexole Di-HCL 0.125 MG TABLET PO (20:38)
[2024-05-30] MEDS: Prazosin HCL 1 MG CAPSULE 4 MG PO (20:38)
[2024-05-31] MEDS: methADONE HCl 20 MG/2 ML ORAL.CONC 100 MG PO (07:50)
[2024-05-31 08:25] VITALS: BP 129/69; PULSE 69; RESP 16; TEMP 36.4; O2SAT 97
[2024-05-31] MEDS: Sertraline HCL 50 MG TABLET 150 MG PO (08:45)
[2024-05-31] MEDS: Nicotine 21 MG PATCH.TD24 TRANSDERMA (08:45)
[2024-05-31] MEDS: QUEtiapine Fumarate 50 MG TABLET PO ×2 (08:45→13:33)
[2024-05-31] MEDS: Cariprazine HCl 3 MG CAPSULE PO (08:45)
--- NOTE | 2024-05-31 15:13 | P.PNPSI_ITS ---
Subjective Subjective Date of Service: 05/31/24 Reason For Visit: mood disorder Interim History: Met with patient; discussed with team Patient reports that mood is better today. She was proud of herself that she went to a group and showered yesterday. She says that auditory hallucinations are the same but is grateful for abating depression. Agrees that she just started Vraylar 3 mg and hopefully AH will diminish as well. Mental Status Exam Mental Status Exam Narrative: Pt is alert and oriented; behavior is cooperative, friendly and calm; patient is not in distress; dressed in hospital attire, disheveled; mood is described as mood is a little better and affect congruent, brighter; eye contact appropriate; Speech is normal rate, volume and prosody; some psychomotor retardation present but much less; thought process is organized and goal directed; Thought content is on symptoms, treatment; some paranoid delusional content secondary to AH present; denies any SI/HI. Intermittent AH throughout the day. Patients insight and judgment impaired but improving. Diagnostics Vital Signs (24Hr): Vital Signs - 24 hr 05/30/24 19:58 05/31/24 08:25 Temperature 97.6 F 97.6 F Pulse Rate 69 69 Respiratory Rate 16 16 Blood Pressure 130/67 129/69 Pulse Oximetry 99 97 Oxygen Delivery Method Room Air Room Air BMI result Body Mass Index 34.1 Labs 05/22/24 08:24 Medications Medications Current Medications Acetaminophen (Acetaminophen 325 Mg Tablet) 650 mg PO Q6H PRN PRN Reason: Headache/Pain Mild Scale (1-3) Last Admin: 05/28/24 20:41 Dose: 650 mg Al Hydroxide/Mg Hydroxide (Magnesium Hydrox/Alum Hydrox 30 Ml Oral.Susp) 30 ml PO Q6H PRN PRN Reason: Heartburn/Nausea Albuterol Sulfate (Albuterol Sulfate 90 Mcg 8 Gm Inhaler) 2 puff INHALE Q6H PRN PRN Reason: wheezing Cariprazine (Cariprazine Hcl 3 Mg Capsule) 3 mg PO DAILY [facility] Last Admin: 05/31/24 08:45 Dose: 3 mg Chlorpromazine HCl (Chlorpromazine Hcl 25 Mg Tablet) 50 mg PO Q4H PRN PRN Reason: Agitation Last Admin: 05/29/24 18:14 Dose: 50 mg Cyclobenzaprine HCl (Cyclobenzaprine Hcl 10 Mg Tablet) 10 mg PO TID PRN PRN Reason: Back pain Last Admin: 05/29/24 14:36 Dose: 10 mg Doxepin HCl (Doxepin Hcl 10 Mg Capsule) 20 mg PO BEDTIME [facility] Last Admin: 05/30/24 20:38 Dose: 20 mg Hydroxyzine HCl (Hydroxyzine Hcl 25 Mg Tablet) 25 mg PO Q6H PRN PRN Reason: Anxiety Last Admin: 05/28/24 20:52 Dose: 25 mg Ibuprofen (Ibuprofen 800 Mg Tablet) 800 mg PO Q8H PRN PRN Reason: Back pain Magnesium Hydroxide (Milk Of Magnesia 30 Ml Oral.Susp) 30 ml PO DAILY PRN PRN Reason: Constipation Methadone HCl (Methadone Hcl 20 Mg/2 Ml Oral.Conc) 100 mg PO DAILY [facility] Last Admin: 05/31/24 07:50 Dose: 100 mg Nicotine (Nicotine 21 Mg Patch.Td24) 21 mg TRANSDERMA DAILY PRN PRN Reason: nicotine cravings Last Admin: 05/31/24 08:45 Dose: 21 mg Nicotine Polacrilex (Nicotine Polacrilex Lozenge 4 Mg Lozenge) 4 mg BUCCAL Q2H PRN PRN Reason: Nicotine Cravings Pramipexole Dihydrochloride (Pramipexole Di-Hcl 0.125 Mg Tablet) 0.125 mg PO BEDTIME [facility] Last Admin: 05/30/24 20:38 Dose: 0.125 mg Prazosin HCl (Prazosin Hcl 1 Mg Capsule) 4 mg PO BEDTIME [facility]; Protocol Last Admin: 05/30/24 20:38 Dose: 4 mg Quetiapine Fumarate (Quetiapine Fumarate 50 Mg Tablet) 50 mg PO BID@0900,1400 [facility] Last Admin: 05/31/24 13:33 Dose: 50 mg Quetiapine Fumarate (Quetiapine Fumarate 50 Mg Tablet) 50 mg PO TID PRN PRN Reason: anxiety, agitation Last Admin: 05/30/24 20:38 Dose: 50 mg Sertraline HCl (Sertraline Hcl 50 Mg Tablet) 150 mg PO DAILY [facility] Last Admin: 05/31/24 08:45 Dose: 150 mg Trazodone HCl (Trazodone Hcl 100 Mg Tablet) 100 mg PO BEDTIME [facility] Last Admin: 05/30/24 20:38 Dose: 100 mg Trazodone HCl (Trazodone Hcl 50 Mg Tablet) 50 mg PO BEDTIME MRX1 PRN PRN Reason: continued insomnia Allergies Allergies Allergy/AdvReac Type Severity Reaction Status Date / Time Penicillins Allergy Intermediate HIVES Verified 03/14/24 15:53 Assessment & Plan Assessment & Plan (1) Schizoaffective disorder, bipolar type: Status: Acute Code(s): F25.0 - Schizoaffective disorder, bipolar type (2) Acute stress disorder: Status: Acute Code(s): F43.0 - Acute stress reaction (3) Opioid use disorder: Status: Acute Code(s): F11.90 - Opioid use, unspecified, uncomplicated Plan ASD, PTSD, Recurrent Major Depression, Polysubstance Use Disorder; also manic episodes; AH independent of mood Hospital course: 05/23: Continue current regimen and plans 05/24: Continue current regimen and plan 05/26: EKG as Seroquel prn has been added. 05/28: Ibuprofen prn for back pain Tolerating Trileptal trial 05/29 reviewed history and it seems that patient meets criteria for schizoaffective disorder, bipolar type. Patient reports that she has been quite depressed; she says her mood improved for 1 day and she had less anxiety, attended to ADLs but returned has been present for the past 2 days. She denies any SI. Patient says that the Seroquel and Zoloft were started at [facility]; she says that there she was still depressed but was overall feeling better enough to discharge. She said post discharge she had a manic episode and then got depressed. Reviewed history with patient: Patient reports being sober for 7 years, relapsed this past February when her mother (and then for 2 weeks) in past, while sober she reports history of manic episodes that can last anywhere from 3-7 days; episodes include episodes of talking fast, lots of activity...shopping sprees, buying excessive amount of scratch tickets...mind racing, having a lot of energy, not sleeping at all for 2-3 days and then very little for subsequent days... hanging around friends I should not be with (who shoplifters...) and which resulted in relapse.... Patient reports her friends notice these changes in her behavior. After such an episode, patient gets very depressed. She says this post manic depression is what resulted in this admission to [place]. Patient reports many past hospitalizations for depression often happen after a manic episode; she says some duration of manic episode happens about twice a month. Regarding history of depression, patient reports that medications have been partially helpful but depression remains. -Patient reports that her Mother had Schizoaffective disorder, bipolar type (Schizophrenia with manic episodes). Initially patient was reticent to talk about AVH; however she opened up and reports that daily she experiences AH telling her to pull her hair, to do things to hurt self; if her on people the voice will say that people are talking about her... She thinks that this is real and has a hard time ignoring it; she was however open to considering it might be her mind playing tricks on her because of mental illness. She reports presence of AH independent of mood. Discussed medication management for symptoms and reviewed risks/side-effects of Vraylar and pt willing to start (considered lithium; patient does not remember if past med trials were helpful) will dc Trileptal; just started 2 days ago; no effect yet discussed insomnia; she thinks Trazodone may work if 100mg; will schedule Trazodone and make Seroquel 200mg a prn for continued insomnia (goal to only be on 1 antipsychotic) 05/30 still AH, no changes but no side-effects; still depressed and hard to do ADL's but is forcing herself to shower agrees to increased vraylar; says slept well enough on trazodone; asks for extra PRN trazodone since waking at night. 05/31 Patient reports that mood is better today. She was proud of herself that she went to a group and showered yesterday. She says that auditory hallucinations are the same but is grateful for abating depression. -continue current Vraylar 3 mg; was just started on this dose and hopefully AH will diminish as well. Plan: CV Q 15 minute checks Continue Vraylar 3 mg daily; Discontinue Trileptal; just started 2 days ago and no effect yet; replacing with Vraylar Continue Zoloft 150 mg; recently titrated Continue doxepin Continue prazosin DC Seroquel 200 mg q.h.s; trazodone effective (and avoiding pt being on 2 antipsychotics) Scheduled trazodone 100 mg q.h.s.; Extra 50mg prn available History of Med trials: Daxa Messer Risperdone Kristen Patient educated on: diagnosis, medication risk/benefits and therapeutic strategies Informed Consent: understands Reason for continued inpatient stay Substantial Risk for: rapid decompensation Time Spent With Patient Time: Total time managing care of this patient today ____ minutes.
[2024-05-31 20:00] VITALS: BP 128/72; PULSE 71; RESP 16; TEMP 36.8; O2SAT 97
[2024-05-31 20:33] VITALS: BP 146/65
[2024-05-31] MEDS: Doxepin HCl 10 MG CAPSULE 20 MG PO (20:33)
[2024-05-31] MEDS: traZODone HCL 100 MG TABLET PO (20:33)
[2024-05-31] MEDS: Pramipexole Di-HCL 0.125 MG TABLET PO (20:33)
[2024-05-31] MEDS: Prazosin HCL 1 MG CAPSULE 4 MG PO (20:33)
[2024-06-01] MEDS: methADONE HCl 20 MG/2 ML ORAL.CONC 100 MG PO (07:42)
[2024-06-01 08:16] VITALS: BP 127/70; PULSE 65; RESP 16; TEMP 36.4; O2SAT 96
[2024-06-01] MEDS: Sertraline HCL 50 MG TABLET 150 MG PO (08:35)
[2024-06-01] MEDS: Cariprazine HCl 3 MG CAPSULE PO (08:35)
[2024-06-01] MEDS: Nicotine 21 MG PATCH.TD24 TRANSDERMA (08:35)
[2024-06-01] MEDS: QUEtiapine Fumarate 50 MG TABLET PO ×3 (08:35→20:53)
--- NOTE | 2024-06-01 12:39 | HO.PSYCHPN ---
Subjective Subjective Date of Service: 06/01/24 Reason For Visit: mood disorder Subjective Notes: Conditional Voluntary Healthcare Proxy: No Guardianship: No Medical Problems Affecting Mental Status: No Interim History: Team reports some improvement over the weekend. AH continue. Pt with increasing attention to ADL's. Asked for addition of Trazodone prn, initiated Vraylar with weekend coverage and attending one group. Today, team report she is reporting increase in sx-anxiety, PIA, nightmares. Review of medications with pt who reports nothing is helping me . Pt will stay with changes for one more day. Discussed possible changes moving forward. Medication Compliance: Yes Side effects from medications: No Attending Groups: No Review of Systems Acute medical concerns: No Medical Review of Systems: unchanged Review of Systems Review of Systems Yes all other systems are reviewed and are negative Mental Status Exam Mental Status Exam Patient Appearance: Appropriate Patient Orientation: Person, Place, Time and Situation Level of Consciousness: Alert Patient Behavior: Appropriate, Talkative, Cooperative and Good Eye Contact Mood Description: Depressed and Anxious Affect Description: Flat Patient Cognition Impaired: No Ability to Follow Directions: Good Speech Pattern: Spontaneous Speech Memory Description: Intact Hallucinations: Auditory (CAH at times to suicide) Delusions: Not Present Perceptual Disturbances: Depersonalization and Derealization Thought Process: Rumination Thought Content: positive for Perseveration Depressive Symptoms: Increased Anxiety and Sleeping More Than Usual Judgement: Fair Diagnostics Vital Signs (24Hr): Vital Signs - 24 hr 05/31/24 20:00 05/31/24 20:33 06/01/24 08:16 Temperature 98.2 F 97.5 F Pulse Rate 71 65 Respiratory Rate 16 16 Blood Pressure 128/72 146/65 H 127/70 Pulse Oximetry 97 96 Oxygen Delivery Method Room Air Room Air BMI result Body Mass Index 34.1 Labs 05/22/24 08:24 Medications Medications Current Medications Acetaminophen (Acetaminophen 325 Mg Tablet) 650 mg PO Q6H PRN PRN Reason: Headache/Pain Mild Scale (1-3) Last Admin: 05/28/24 20:41 Dose: 650 mg Al Hydroxide/Mg Hydroxide (Magnesium Hydrox/Alum Hydrox 30 Ml Oral.Susp) 30 ml PO Q6H PRN PRN Reason: Heartburn/Nausea Albuterol Sulfate (Albuterol Sulfate 90 Mcg 8 Gm Inhaler) 2 puff INHALE Q6H PRN PRN Reason: wheezing Cariprazine (Cariprazine Hcl 3 Mg Capsule) 3 mg PO DAILY [facility] Last Admin: 06/01/24 08:35 Dose: 3 mg Chlorpromazine HCl (Chlorpromazine Hcl 25 Mg Tablet) 50 mg PO Q4H PRN PRN Reason: Agitation Last Admin: 05/29/24 18:14 Dose: 50 mg Cyclobenzaprine HCl (Cyclobenzaprine Hcl 10 Mg Tablet) 10 mg PO TID PRN PRN Reason: Back pain Last Admin: 05/29/24 14:36 Dose: 10 mg Doxepin HCl (Doxepin Hcl 10 Mg Capsule) 20 mg PO BEDTIME [facility]EOMA Last Admin: 05/31/24 20:33 Dose: 20 mg Hydroxyzine HCl (Hydroxyzine Hcl 25 Mg Tablet) 25 mg PO Q6H PRN PRN Reason: Anxiety Last Admin: 05/28/24 20:52 Dose: 25 mg Ibuprofen (Ibuprofen 800 Mg Tablet) 800 mg PO Q8H PRN PRN Reason: Back pain Magnesium Hydroxide (Milk Of Magnesia 30 Ml Oral.Susp) 30 ml PO DAILY PRN PRN Reason: Constipation Methadone HCl (Methadone Hcl 20 Mg/2 Ml Oral.Conc) 100 mg PO DAILY [facility] Last Admin: 06/01/24 07:42 Dose: 100 mg Nicotine (Nicotine 21 Mg Patch.Td24) 21 mg TRANSDERMA DAILY PRN PRN Reason: nicotine cravings Last Admin: 06/01/24 08:35 Dose: 21 mg Nicotine Polacrilex (Nicotine Polacrilex Lozenge 4 Mg Lozenge) 4 mg BUCCAL Q2H PRN PRN Reason: Nicotine Cravings Pramipexole Dihydrochloride (Pramipexole Di-Hcl 0.125 Mg Tablet) 0.125 mg PO BEDTIME [facility] Last Admin: 05/31/24 20:33 Dose: 0.125 mg Prazosin HCl (Prazosin Hcl 1 Mg Capsule) 4 mg PO BEDTIME [facility]EOMA; Protocol Last Admin: 05/31/24 20:33 Dose: 4 mg Quetiapine Fumarate (Quetiapine Fumarate 50 Mg Tablet) 50 mg PO BID@0900,1400 [facility] Last Admin: 06/01/24 08:35 Dose: 50 mg Quetiapine Fumarate (Quetiapine Fumarate 50 Mg Tablet) 50 mg PO TID PRN PRN Reason: anxiety, agitation Last Admin: 05/30/24 20:38 Dose: 50 mg Sertraline HCl (Sertraline Hcl 50 Mg Tablet) 150 mg PO DAILY [facility] Last Admin: 06/01/24 08:35 Dose: 150 mg Trazodone HCl (Trazodone Hcl 100 Mg Tablet) 100 mg PO BEDTIME [facility] Last Admin: 05/31/24 20:33 Dose: 100 mg Trazodone HCl (Trazodone Hcl 50 Mg Tablet) 50 mg PO BEDTIME MRX1 PRN PRN Reason: continued insomnia Allergies Allergies Allergy/AdvReac Type Severity Reaction Status Date / Time Penicillins Allergy Intermediate HIVES Verified 03/14/24 15:53 Assessment & Plan Assessment & Plan (1) Schizoaffective disorder, bipolar type: Status: Acute Code(s): F25.0 - Schizoaffective disorder, bipolar type (2) Acute stress disorder: Status: Acute Code(s): F43.0 - Acute stress reaction (3) Opioid use disorder: Status: Acute Code(s): F11.90 - Opioid use, unspecified, uncomplicated Plan ASD, PTSD, Recurrent Major Depression, Polysubstance Use Disorder; also manic episodes; AH independent of mood Hospital course: 05/23: Continue current regimen and plans 05/24: Continue current regimen and plan 05/26: EKG as Seroquel prn has been added. 05/28: Ibuprofen prn for back pain Tolerating Trileptal trial 05/29 reviewed history and it seems that patient meets criteria for schizoaffective disorder, bipolar type. Patient reports that she has been quite depressed; she says her mood improved for 1 day and she had less anxiety, attended to ADLs but returned has been present for the past 2 days. She denies any SI. Patient says that the Seroquel and Zoloft were started at [facility]; she says that there she was still depressed but was overall feeling better enough to discharge. She said post discharge she had a manic episode and then got depressed. Reviewed history with patient: Patient reports being sober for 7 years, relapsed this past February when her mother (and then for 2 weeks) in past, while sober she reports history of manic episodes that can last anywhere from 3-7 days; episodes include episodes of talking fast, lots of activity...shopping sprees, buying excessive amount of scratch tickets...mind racing, having a lot of energy, not sleeping at all for 2-3 days and then very little for subsequent days... hanging around friends I should not be with (who shoplifters...) and which resulted in relapse.... Patient reports her friends notice these changes in her behavior. After such an episode, patient gets very depressed. She says this post manic depression is what resulted in this admission to [place]. Patient reports many past hospitalizations for depression often happen after a manic episode; she says some duration of manic episode happens about twice a month. Regarding history of depression, patient reports that medications have been partially helpful but depression remains. -Patient reports that her Mother had Schizoaffective disorder, bipolar type (Schizophrenia with manic episodes). Initially patient was reticent to talk about AVH; however she opened up and reports that daily she experiences AH telling her to pull her hair, to do things to hurt self; if her on people the voice will say that people are talking about her... She thinks that this is real and has a hard time ignoring it; she was however open to considering it might be her mind playing tricks on her because of mental illness. She reports presence of AH independent of mood. Discussed medication management for symptoms and reviewed risks/side-effects of Vraylar and pt willing to start (considered lithium; patient does not remember if past med trials were helpful) will dc Trileptal; just started 2 days ago; no effect yet discussed insomnia; she thinks Trazodone may work if 100mg; will schedule Trazodone and make Seroquel 200mg a prn for continued insomnia (goal to only be on 1 antipsychotic) 05/30 still AH, no changes but no side-effects; still depressed and hard to do ADL's but is forcing herself to shower agrees to increased vraylar; says slept well enough on trazodone; asks for extra PRN trazodone since waking at night. 05/31 Patient reports that mood is better today. She was proud of herself that she went to a group and showered yesterday. She says that auditory hallucinations are the same but is grateful for abating depression. -continue current Vraylar 3 mg; was just started on this dose and hopefully AH will diminish as well. 06/01- Continue current regime-Discussed possible changes to Remeron, Buspirone, she will decided on 06/02. Plan: CV Q 15 minute checks Continue Vraylar 3 mg daily; Discontinue Trileptal; just started 2 days ago and no effect yet; replacing with Vraylar Continue Zoloft 150 mg; recently titrated Continue doxepin Continue prazosin DC Seroquel 200 mg q.h.s; trazodone effective (and avoiding pt being on 2 antipsychotics) Scheduled trazodone 100 mg q.h.s.; Extra 50mg prn available History of Med trials: Seroquel Ayde Risperdone Depakote Informed Consent: understands Reason for continued inpatient stay Substantial Risk for: rapid decompensation Time Spent With Patient Time: Total time managing care of this patient today ____ minutes.
[2024-06-01 20:00] VITALS: BP 119/61; PULSE 72; RESP 14; TEMP 36.2; O2SAT 98
[2024-06-01] MEDS: Doxepin HCl 10 MG CAPSULE 20 MG PO (20:52)
[2024-06-01] MEDS: Pramipexole Di-HCL 0.125 MG TABLET PO (20:52)
[2024-06-01] MEDS: Prazosin HCL 1 MG CAPSULE 4 MG PO (20:53)
[2024-06-01] MEDS: traZODone HCL 100 MG TABLET PO (20:53)
[2024-06-02] MEDS: methADONE HCl 20 MG/2 ML ORAL.CONC 100 MG PO (07:43)
[2024-06-02 08:00] VITALS: BP 123/65; PULSE 64; RESP 16; TEMP 37; O2SAT 97
[2024-06-02] MEDS: Cariprazine HCl 3 MG CAPSULE PO (08:58)
[2024-06-02] MEDS: QUEtiapine Fumarate 50 MG TABLET PO ×2 (08:58→14:08)
[2024-06-02] MEDS: Sertraline HCL 50 MG TABLET 150 MG PO (08:58)
[2024-06-02] MEDS: Nicotine 21 MG PATCH.TD24 TRANSDERMA (09:04)
[2024-06-02] MEDS: chlorproMAZINE HCl 25 MG TABLET 50 MG PO (09:04)
[2024-06-02] MEDS: busPIRone HCl 10 MG TABLET PO ×3 (10:40→21:43)
--- NOTE | 2024-06-02 10:59 | HO.PSYCHPN ---
Subjective Subjective Date of Service: 06/02/24 Reason For Visit: mood disorder Subjective Notes: Conditional Voluntary Healthcare Proxy: No Guardianship: No Medical Problems Affecting Mental Status: No Interim History: Pt reports poor sleep with extra Trazodone last evening. Social anxiety Team report they believe she is more symptomatic since they told her they thought she was improving. Pt agrees, feeling worse she reports Med changes- Vraylar DC per pt request. Buspirone 10 mg tid for anxiety, Trazodone DC, Remeron 15 mg HS, Seroquel 200 mg HS-continue 50 bid scheduled and prn Medication Compliance: Yes Side effects from medications: No Attending Groups: No Review of Systems Acute medical concerns: No Medical Review of Systems: unchanged Review of Systems Review of Systems Pt is in bed most of the day. We discussed ambulation to help with sleep and circulation. Mental Status Exam Mental Status Exam Patient Appearance: Appropriate Patient Orientation: Person, Place, Time and Situation Level of Consciousness: Alert Patient Behavior: Appropriate, Talkative, Cooperative and Good Eye Contact Mood Description: Depressed and Anxious Affect Description: Flat Patient Cognition Impaired: No Ability to Follow Directions: Good Speech Pattern: Spontaneous Speech Memory Description: Intact Hallucinations: Auditory (CAH at times to suicide) Delusions: Not Present Perceptual Disturbances: Depersonalization and Derealization Thought Process: Rumination Thought Content: positive for Perseveration Depressive Symptoms: Increased Anxiety and Sleeping More Than Usual Judgement: Fair Diagnostics Vital Signs (24Hr): Vital Signs - 24 hr 06/01/24 20:00 06/02/24 08:00 Temperature 97.2 F 98.6 F Pulse Rate 72 64 Respiratory Rate 14 16 Blood Pressure 119/61 123/65 Pulse Oximetry 98 97 Oxygen Delivery Method Room Air Room Air BMI result Body Mass Index 34.1 Labs 05/22/24 08:24 Medications Medications Current Medications Acetaminophen (Acetaminophen 325 Mg Tablet) 650 mg PO Q6H PRN PRN Reason: Headache/Pain Mild Scale (1-3) Last Admin: 05/28/24 20:41 Dose: 650 mg Al Hydroxide/Mg Hydroxide (Magnesium Hydrox/Alum Hydrox 30 Ml Oral.Susp) 30 ml PO Q6H PRN PRN Reason: Heartburn/Nausea Albuterol Sulfate (Albuterol Sulfate 90 Mcg 8 Gm Inhaler) 2 puff INHALE Q6H PRN PRN Reason: wheezing Buspirone HCl (Buspirone Hcl 10 Mg Tablet) 10 mg PO TID [facility] Last Admin: 06/02/24 10:40 Dose: 10 mg Cariprazine (Cariprazine Hcl 3 Mg Capsule) 3 mg PO DAILY [facility] Last Admin: 06/02/24 08:58 Dose: 3 mg Chlorpromazine HCl (Chlorpromazine Hcl 25 Mg Tablet) 50 mg PO Q4H PRN PRN Reason: Agitation Last Admin: 06/02/24 09:04 Dose: 50 mg Cyclobenzaprine HCl (Cyclobenzaprine Hcl 10 Mg Tablet) 10 mg PO TID PRN PRN Reason: Back pain Last Admin: 05/29/24 14:36 Dose: 10 mg Doxepin HCl (Doxepin Hcl 10 Mg Capsule) 20 mg PO BEDTIME [facility] Last Admin: 06/01/24 20:52 Dose: 20 mg Hydroxyzine HCl (Hydroxyzine Hcl 25 Mg Tablet) 25 mg PO Q6H PRN PRN Reason: Anxiety Last Admin: 05/28/24 20:52 Dose: 25 mg Ibuprofen (Ibuprofen 800 Mg Tablet) 800 mg PO Q8H PRN PRN Reason: Back pain Magnesium Hydroxide (Milk Of Magnesia 30 Ml Oral.Susp) 30 ml PO DAILY PRN PRN Reason: Constipation Methadone HCl (Methadone Hcl 20 Mg/2 Ml Oral.Conc) 100 mg PO DAILY [facility] Last Admin: 06/02/24 07:43 Dose: 100 mg Mirtazapine (Mirtazapine 15 Mg Tablet) 15 mg PO BEDTIME [facility] Nicotine (Nicotine 21 Mg Patch.Td24) 21 mg TRANSDERMA DAILY PRN PRN Reason: nicotine cravings Last Admin: 06/02/24 09:04 Dose: 21 mg Nicotine Polacrilex (Nicotine Polacrilex Lozenge 4 Mg Lozenge) 4 mg BUCCAL Q2H PRN PRN Reason: Nicotine Cravings Pramipexole Dihydrochloride (Pramipexole Di-Hcl 0.125 Mg Tablet) 0.125 mg PO BEDTIME [facility] Last Admin: 06/01/24 20:52 Dose: 0.125 mg Prazosin HCl (Prazosin Hcl 1 Mg Capsule) 4 mg PO BEDTIME [facility]; Protocol Last Admin: 06/01/24 20:53 Dose: 4 mg Quetiapine Fumarate (Quetiapine Fumarate 50 Mg Tablet) 50 mg PO BID@0900,1400 [facility] Last Admin: 06/02/24 08:58 Dose: 50 mg Quetiapine Fumarate (Quetiapine Fumarate 50 Mg Tablet) 50 mg PO TID PRN PRN Reason: anxiety, agitation Last Admin: 05/30/24 20:38 Dose: 50 mg Quetiapine Fumarate (Quetiapine Fumarate 50 Mg Tablet) 50 mg PO BEDTIME [facility] Last Admin: 06/01/24 20:53 Dose: 50 mg Sertraline HCl (Sertraline Hcl 50 Mg Tablet) 150 mg PO DAILY [facility] Last Admin: 06/02/24 08:58 Dose: 150 mg Allergies Allergies Allergy/AdvReac Type Severity Reaction Status Date / Time Penicillins Allergy Intermediate HIVES Verified 03/14/24 15:53 Assessment & Plan Assessment & Plan (1) Schizoaffective disorder, bipolar type: Status: Acute Code(s): F25.0 - Schizoaffective disorder, bipolar type (2) Acute stress disorder: Status: Acute Code(s): F43.0 - Acute stress reaction (3) Opioid use disorder: Status: Acute Code(s): F11.90 - Opioid use, unspecified, uncomplicated Plan ASD, PTSD, Recurrent Major Depression, Polysubstance Use Disorder; also manic episodes; AH independent of mood Hospital course: 05/23: Continue current regimen and plans 05/24: Continue current regimen and plan 05/26: EKG as Seroquel prn has been added. 05/28: Ibuprofen prn for back pain Tolerating Trileptal trial 05/29 reviewed history and it seems that patient meets criteria for schizoaffective disorder, bipolar type. Patient reports that she has been quite depressed; she says her mood improved for 1 day and she had less anxiety, attended to ADLs but returned has been present for the past 2 days. She denies any SI. Patient says that the Seroquel and Zoloft were started at [facility]; she says that there she was still depressed but was overall feeling better enough to discharge. She said post discharge she had a manic episode and then got depressed. Reviewed history with patient: Patient reports being sober for 7 years, relapsed this past February when her mother (and then for 2 weeks) in past, while sober she reports history of manic episodes that can last anywhere from 3-7 days; episodes include episodes of talking fast, lots of activity...shopping sprees, buying excessive amount of scratch tickets...mind racing, having a lot of energy, not sleeping at all for 2-3 days and then very little for subsequent days... hanging around friends I should not be with (who shoplifters...) and which resulted in relapse.... Patient reports her friends notice these changes in her behavior. After such an episode, patient gets very depressed. She says this post manic depression is what resulted in this admission to [facility]. Patient reports many past hospitalizations for depression often happen after a manic episode; she says some duration of manic episode happens about twice a month. Regarding history of depression, patient reports that medications have been partially helpful but depression remains. -Patient reports that her Mother had Schizoaffective disorder, bipolar type (Schizophrenia with manic episodes). Initially patient was reticent to talk about AVH; however she opened up and reports that daily she experiences AH telling her to pull her hair, to do things to hurt self; if her on people the voice will say that people are talking about her... She thinks that this is real and has a hard time ignoring it; she was however open to considering it might be her mind playing tricks on her because of mental illness. She reports presence of AH independent of mood. Discussed medication management for symptoms and reviewed risks/side-effects of Vraylar and pt willing to start (considered lithium; patient does not remember if past med trials were helpful) will dc Trileptal; just started 2 days ago; no effect yet discussed insomnia; she thinks Trazodone may work if 100mg; will schedule Trazodone and make Seroquel 200mg a prn for continued insomnia (goal to only be on 1 antipsychotic) 05/30 still AH, no changes but no side-effects; still depressed and hard to do ADL's but is forcing herself to shower agrees to increased vraylar; says slept well enough on trazodone; asks for extra PRN trazodone since waking at night. 05/31 Patient reports that mood is better today. She was proud of herself that she went to a group and showered yesterday. She says that auditory hallucinations are the same but is grateful for abating depression. -continue current Vraylar 3 mg; was just started on this dose and hopefully AH will diminish as well. 06/02: DC Trazodone Remeron 15 mg HS Buspirone 10 mg tid Seroquel 200 mg HS Plan: CV Q 15 minute checks Continue Vraylar 3 mg daily; Discontinue Trileptal; just started 2 days ago and no effect yet; replacing with Vraylar Continue Zoloft 150 mg; recently titrated Continue doxepin Continue prazosin DC Seroquel 200 mg q.h.s; trazodone effective (and avoiding pt being on 2 antipsychotics) Scheduled trazodone 100 mg q.h.s.; Extra 50mg prn available History of Med trials: Seroquel Abilijodie Risperdone Depakote Reason for continued inpatient stay Substantial Risk for: rapid decompensation Time Spent With Patient Time: Total time managing care of this patient today ____ minutes.
[2024-06-02 20:00] VITALS: BP 128/68; PULSE 98; RESP 16; TEMP 36.8; O2SAT 98
[2024-06-02] MEDS: QUEtiapine Fumarate 200 MG TABLET PO (21:43)
[2024-06-02 21:44] VITALS: BP 128/68
[2024-06-02] MEDS: Doxepin HCl 10 MG CAPSULE 20 MG PO (21:44)
[2024-06-02] MEDS: Pramipexole Di-HCL 0.125 MG TABLET PO (21:44)
[2024-06-02] MEDS: Prazosin HCL 1 MG CAPSULE 4 MG PO (21:44)
[2024-06-02] MEDS: Mirtazapine 15 MG TABLET PO (21:44)
[2024-06-02] MEDS: Cyclobenzaprine HCl 10 MG TABLET PO (21:44)
[2024-06-03 08:00] VITALS: BP 105/65; PULSE 77; RESP 16; TEMP 36.5; O2SAT 96
[2024-06-03] MEDS: methADONE HCl 20 MG/2 ML ORAL.CONC 100 MG PO (08:04)
[2024-06-03] MEDS: Sertraline HCL 50 MG TABLET 150 MG PO (08:55)
[2024-06-03] MEDS: Nicotine 21 MG PATCH.TD24 TRANSDERMA (08:55)
[2024-06-03] MEDS: QUEtiapine Fumarate 50 MG TABLET PO ×2 (08:55→14:30)
[2024-06-03] MEDS: Cyclobenzaprine HCl 10 MG TABLET PO ×2 (08:55→14:30)
[2024-06-03] MEDS: chlorproMAZINE HCl 25 MG TABLET 50 MG PO ×2 (08:55→14:30)
[2024-06-03] MEDS: busPIRone HCl 10 MG TABLET PO ×3 (08:55→21:04)
--- NOTE | 2024-06-03 19:02 | HO.PSYCHPN ---
Subjective Subjective Date of Service: 06/03/24 Reason For Visit: mood disorder Subjective Notes: Conditional Voluntary Healthcare Proxy: No Guardianship: No Medical Problems Affecting Mental Status: No Interim History: Reports improved sleep. Attempting to get into milieu more, ambulate. Today, asks for a journal, pen and headphones. Appears brighter at times. Team is encouraging increased participation. Medication Compliance: Yes Side effects from medications: No Attending Groups: No Review of Systems Acute medical concerns: No Mental Status Exam Mental Status Exam Patient Appearance: Appropriate Patient Orientation: Person, Place, Time and Situation Level of Consciousness: Alert Patient Behavior: Appropriate, Talkative, Cooperative and Good Eye Contact Mood Description: Depressed and Anxious Affect Description: Flat Patient Cognition Impaired: No Ability to Follow Directions: Good Speech Pattern: Spontaneous Speech Memory Description: Intact Hallucinations: Auditory (CAH at times to suicide) Delusions: Not Present Perceptual Disturbances: Depersonalization and Derealization Thought Process: Rumination Thought Content: positive for Perseveration Depressive Symptoms: Increased Anxiety and Sleeping More Than Usual Judgement: Fair Diagnostics Vital Signs (24Hr): Vital Signs - 24 hr 06/02/24 20:00 06/02/24 21:44 06/03/24 08:00 Temperature 98.2 F 97.7 F Pulse Rate 98 77 Respiratory Rate 16 16 Blood Pressure 128/68 128/68 105/65 Pulse Oximetry 98 96 Oxygen Delivery Method Room Air Room Air BMI result Body Mass Index 34.1 Labs 05/22/24 08:24 Medications Medications Current Medications Acetaminophen (Acetaminophen 325 Mg Tablet) 650 mg PO Q6H PRN PRN Reason: Headache/Pain Mild Scale (1-3) Last Admin: 05/28/24 20:41 Dose: 650 mg Al Hydroxide/Mg Hydroxide (Magnesium Hydrox/Alum Hydrox 30 Ml Oral.Susp) 30 ml PO Q6H PRN PRN Reason: Heartburn/Nausea Albuterol Sulfate (Albuterol Sulfate 90 Mcg 8 Gm Inhaler) 2 puff INHALE Q6H PRN PRN Reason: wheezing Buspirone HCl (Buspirone Hcl 10 Mg Tablet) 10 mg PO TID [facility] Last Admin: 06/03/24 14:30 Dose: 10 mg Chlorpromazine HCl (Chlorpromazine Hcl 25 Mg Tablet) 50 mg PO Q4H PRN PRN Reason: Agitation Last Admin: 08/28/24 14:30 Dose: 50 mg Cyclobenzaprine HCl (Cyclobenzaprine Hcl 10 Mg Tablet) 10 mg PO TID PRN PRN Reason: Back pain Last Admin: 06/03/24 14:30 Dose: 10 mg Doxepin HCl (Doxepin Hcl 10 Mg Capsule) 20 mg PO BEDTIME [facility] Last Admin: 06/02/24 21:44 Dose: 20 mg Hydroxyzine HCl (Hydroxyzine Hcl 25 Mg Tablet) 25 mg PO Q6H PRN PRN Reason: Anxiety Last Admin: 05/28/24 20:52 Dose: 25 mg Ibuprofen (Ibuprofen 800 Mg Tablet) 800 mg PO Q8H PRN PRN Reason: Back pain Magnesium Hydroxide (Milk Of Magnesia 30 Ml Oral.Susp) 30 ml PO DAILY PRN PRN Reason: Constipation Methadone HCl (Methadone Hcl 20 Mg/2 Ml Oral.Conc) 100 mg PO DAILY [facility] Last Admin: 06/03/24 08:04 Dose: 100 mg Mirtazapine (Mirtazapine 15 Mg Tablet) 15 mg PO BEDTIME [facility] Last Admin: 06/02/24 21:44 Dose: 15 mg Nicotine (Nicotine 21 Mg Patch.Td24) 21 mg TRANSDERMA DAILY PRN PRN Reason: nicotine cravings Last Admin: 06/03/24 08:55 Dose: 21 mg Nicotine Polacrilex (Nicotine Polacrilex Lozenge 4 Mg Lozenge) 4 mg BUCCAL Q2H PRN PRN Reason: Nicotine Cravings Pramipexole Dihydrochloride (Pramipexole Di-Hcl 0.125 Mg Tablet) 0.125 mg PO BEDTIME [facility] Last Admin: 06/02/24 21:44 Dose: 0.125 mg Prazosin HCl (Prazosin Hcl 1 Mg Capsule) 4 mg PO BEDTIME [facility]; Protocol Last Admin: 06/02/24 21:44 Dose: 4 mg Quetiapine Fumarate (Quetiapine Fumarate 50 Mg Tablet) 50 mg PO BID@0900,1400 [facility] Last Admin: 06/03/24 14:30 Dose: 50 mg Quetiapine Fumarate (Quetiapine Fumarate 50 Mg Tablet) 50 mg PO TID PRN PRN Reason: anxiety, agitation Last Admin: 05/30/24 20:38 Dose: 50 mg Quetiapine Fumarate (Quetiapine Fumarate 200 Mg Tablet) 200 mg PO BEDTIME [facility] Last Admin: 06/02/24 21:43 Dose: 200 mg Sertraline HCl (Sertraline Hcl 50 Mg Tablet) 150 mg PO DAILY [facility] Last Admin: 06/03/24 08:55 Dose: 150 mg Allergies Allergies Allergy/AdvReac Type Severity Reaction Status Date / Time Penicillins Allergy Intermediate HIVES Verified 03/14/24 15:53 Assessment & Plan Assessment & Plan (1) Schizoaffective disorder, bipolar type: Status: Acute Code(s): F25.0 - Schizoaffective disorder, bipolar type (2) Acute stress disorder: Status: Acute Code(s): F43.0 - Acute stress reaction (3) Opioid use disorder: Status: Acute Code(s): F11.90 - Opioid use, unspecified, uncomplicated Plan ASD, PTSD, Recurrent Major Depression, Polysubstance Use Disorder; also manic episodes; AH independent of mood Hospital course: 05/23: Continue current regimen and plans 05/24: Continue current regimen and plan 05/26: EKG as Seroquel prn has been added. 05/28: Ibuprofen prn for back pain Tolerating Trileptal trial 05/29 reviewed history and it seems that patient meets criteria for schizoaffective disorder, bipolar type. Patient reports that she has been quite depressed; she says her mood improved for 1 day and she had less anxiety, attended to ADLs but returned has been present for the past 2 days. She denies any SI. Patient says that the Seroquel and Zoloft were started at [facility]; she says that there she was still depressed but was overall feeling better enough to discharge. She said post discharge she had a manic episode and then got depressed. Reviewed history with patient: Patient reports being sober for 7 years, relapsed this past February when her mother (and then for 2 weeks) in past, while sober she reports history of manic episodes that can last anywhere from 3-7 days; episodes include episodes of talking fast, lots of activity...shopping sprees, buying excessive amount of scratch tickets...mind racing, having a lot of energy, not sleeping at all for 2-3 days and then very little for subsequent days... hanging around friends I should not be with (who shoplifters...) and which resulted in relapse.... Patient reports her friends notice these changes in her behavior. After such an episode, patient gets very depressed. She says this post manic depression is what resulted in this admission to [facility]. Patient reports many past hospitalizations for depression often happen after a manic episode; she says some duration of manic episode happens about twice a month. Regarding history of depression, patient reports that medications have been partially helpful but depression remains. -Patient reports that her Mother had Schizoaffective disorder, bipolar type (Schizophrenia with manic episodes). Initially patient was reticent to talk about AVH; however she opened up and reports that daily she experiences AH telling her to pull her hair, to do things to hurt self; if her on people the voice will say that people are talking about her... She thinks that this is real and has a hard time ignoring it; she was however open to considering it might be her mind playing tricks on her because of mental illness. She reports presence of AH independent of mood. Discussed medication management for symptoms and reviewed risks/side-effects of Vraylar and pt willing to start (considered lithium; patient does not remember if past med trials were helpful) will dc Trileptal; just started 2 days ago; no effect yet discussed insomnia; she thinks Trazodone may work if 100mg; will schedule Trazodone and make Seroquel 200mg a prn for continued insomnia (goal to only be on 1 antipsychotic) 05/30 still AH, no changes but no side-effects; still depressed and hard to do ADL's but is forcing herself to shower agrees to increased vraylar; says slept well enough on trazodone; asks for extra PRN trazodone since waking at night. 05/31 Patient reports that mood is better today. She was proud of herself that she went to a group and showered yesterday. She says that auditory hallucinations are the same but is grateful for abating depression. -continue current Vraylar 3 mg; was just started on this dose and hopefully AH will diminish as well. 06/02: DC Trazodone Remeron 15 mg HS Buspirone 10 mg tid Seroquel 200 mg HS 06/03: Continue tx. Plan: CV Q 15 minute checks Continue Vraylar 3 mg daily; Discontinue Trileptal; just started 2 days ago and no effect yet; replacing with Vraylar Continue Zoloft 150 mg; recently titrated Continue doxepin Continue prazosin DC Seroquel 200 mg q.h.s; trazodone effective (and avoiding pt being on 2 antipsychotics) Scheduled trazodone 100 mg q.h.s.; Extra 50mg prn available History of Med trials: Seroquel Abilify Risperdone Depakote Reason for continued inpatient stay Substantial Risk for: rapid decompensation Time Spent With Patient Time: Total time managing care of this patient today ____ minutes.
[2024-06-03 19:45] VITALS: BP 123/71; PULSE 73; RESP 14; TEMP 36.4; O2SAT 98
[2024-06-03] MEDS: QUEtiapine Fumarate 200 MG TABLET PO (21:04)
[2024-06-03] MEDS: Doxepin HCl 10 MG CAPSULE 20 MG PO (21:04)
[2024-06-03] MEDS: Prazosin HCL 1 MG CAPSULE 4 MG PO (21:04)
[2024-06-03] MEDS: Pramipexole Di-HCL 0.125 MG TABLET PO (21:04)
[2024-06-03] MEDS: Mirtazapine 15 MG TABLET PO (21:04)
[2024-06-04 07:49] VITALS: BP 118/76; PULSE 62; RESP 14; TEMP 36.4; O2SAT 98
[2024-06-04] MEDS: methADONE HCl 20 MG/2 ML ORAL.CONC 100 MG PO (07:51)
[2024-06-04 08:00] VITALS: BP 118/76; PULSE 62; RESP 16; TEMP 36.4; O2SAT 98
[2024-06-04] MEDS: Sertraline HCL 50 MG TABLET 150 MG PO (09:24)
[2024-06-04] MEDS: QUEtiapine Fumarate 50 MG TABLET PO ×2 (09:25→13:45)
[2024-06-04] MEDS: busPIRone HCl 10 MG TABLET PO ×3 (09:25→20:47)
[2024-06-04] MEDS: Cyclobenzaprine HCl 10 MG TABLET PO ×2 (09:55→20:47)
[2024-06-04] MEDS: chlorproMAZINE HCl 25 MG TABLET 50 MG PO ×2 (09:56→20:48)
[2024-06-04] MEDS: Nicotine 21 MG PATCH.TD24 TRANSDERMA (09:56)
--- NOTE | 2024-06-04 12:04 | HO.PSYCHPN ---
Subjective Subjective Date of Service: 06/04/24 Reason For Visit: mood disorder Subjective Notes: Conditional Voluntary Healthcare Proxy: No Guardianship: No Medical Problems Affecting Mental Status: No Interim History: Continues to report improving sleep. Attended one art group today! Denies nightmares Reports daytime anxiety continues high. Asks to increase daytime Seroquel which we will do. Improved eye contact, out of bed today, increasing engagement with team/peers. Medication Compliance: Yes Side effects from medications: No Attending Groups: Intermittent Review of Systems Acute medical concerns: No Medical Review of Systems: unchanged Review of Systems Review of Systems chronic back pain Mental Status Exam Mental Status Exam Patient Appearance: Appropriate Patient Orientation: Person, Place, Time and Situation Level of Consciousness: Alert Patient Behavior: Appropriate, Talkative, Cooperative and Good Eye Contact Mood Description: Depressed and Anxious Affect Description: Flat Patient Cognition Impaired: No Ability to Follow Directions: Good Speech Pattern: Spontaneous Speech Memory Description: Intact Hallucinations: Auditory (CAH at times to suicide) Delusions: Not Present Perceptual Disturbances: Depersonalization and Derealization Thought Process: Rumination Thought Content: positive for Perseveration Depressive Symptoms: Increased Anxiety and Sleeping More Than Usual Judgement: Fair Diagnostics Vital Signs (24Hr): Vital Signs - 24 hr 06/03/24 19:45 06/04/24 07:49 06/04/24 08:00 Temperature 97.5 F 97.6 F 97.6 F Pulse Rate 73 62 62 Respiratory Rate 14 14 16 Blood Pressure 123/71 118/76 118/76 Pulse Oximetry 98 98 98 Oxygen Delivery Method Room Air Room Air Room Air BMI result Body Mass Index 34.1 Labs 05/22/24 08:24 Medications Medications Current Medications Acetaminophen (Acetaminophen 325 Mg Tablet) 650 mg PO Q6H PRN PRN Reason: Headache/Pain Mild Scale (1-3) Last Admin: 05/28/24 20:41 Dose: 650 mg Al Hydroxide/Mg Hydroxide (Magnesium Hydrox/Alum Hydrox 30 Ml Oral.Susp) 30 ml PO Q6H PRN PRN Reason: Heartburn/Nausea Albuterol Sulfate (Albuterol Sulfate 90 Mcg 8 Gm Inhaler) 2 puff INHALE Q6H PRN PRN Reason: wheezing Buspirone HCl (Buspirone Hcl 10 Mg Tablet) 10 mg PO TID IJEOMA Last Admin: 06/04/24 09:25 Dose: 10 mg Chlorpromazine HCl (Chlorpromazine Hcl 25 Mg Tablet) 50 mg PO Q4H PRN PRN Reason: Agitation Last Admin: 06/04/24 09:56 Dose: 50 mg Cyclobenzaprine HCl (Cyclobenzaprine Hcl 10 Mg Tablet) 10 mg PO TID PRN PRN Reason: Back pain Last Admin: 06/04/24 09:55 Dose: 10 mg Doxepin HCl (Doxepin Hcl 10 Mg Capsule) 20 mg PO BEDTIME IJEOMA Last Admin: 06/03/24 21:04 Dose: 20 mg Hydroxyzine HCl (Hydroxyzine Hcl 25 Mg Tablet) 25 mg PO Q6H PRN PRN Reason: Anxiety Last Admin: 05/28/24 20:52 Dose: 25 mg Ibuprofen (Ibuprofen 800 Mg Tablet) 800 mg PO Q8H PRN PRN Reason: Back pain Magnesium Hydroxide (Milk Of Magnesia 30 Ml Oral.Susp) 30 ml PO DAILY PRN PRN Reason: Constipation Methadone HCl (Methadone Hcl 20 Mg/2 Ml Oral.Conc) 100 mg PO DAILY [facility] Last Admin: 06/04/24 07:51 Dose: 100 mg Mirtazapine (Mirtazapine 15 Mg Tablet) 15 mg PO BEDTIME IJEOMA Last Admin: 06/03/24 21:04 Dose: 15 mg Nicotine (Nicotine 21 Mg Patch.Td24) 21 mg TRANSDERMA DAILY PRN PRN Reason: nicotine cravings Last Admin: 06/04/24 09:56 Dose: 21 mg Nicotine Polacrilex (Nicotine Polacrilex Lozenge 4 Mg Lozenge) 4 mg BUCCAL Q2H PRN PRN Reason: Nicotine Cravings Pramipexole Dihydrochloride (Pramipexole Di-Hcl 0.125 Mg Tablet) 0.125 mg PO BEDTIME IJEOMA Last Admin: 06/03/24 21:04 Dose: 0.125 mg Prazosin HCl (Prazosin Hcl 1 Mg Capsule) 4 mg PO BEDTIME IJEOMA; Protocol Last Admin: 06/03/24 21:04 Dose: 4 mg Quetiapine Fumarate (Quetiapine Fumarate 50 Mg Tablet) 50 mg PO BID@0900,1400 IJEOMA Last Admin: 06/04/24 09:25 Dose: 50 mg Quetiapine Fumarate (Quetiapine Fumarate 50 Mg Tablet) 50 mg PO TID PRN PRN Reason: anxiety, agitation Last Admin: 05/30/24 20:38 Dose: 50 mg Quetiapine Fumarate (Quetiapine Fumarate 200 Mg Tablet) 200 mg PO BEDTIME [facility] Last Admin: 06/03/24 21:04 Dose: 200 mg Sertraline HCl (Sertraline Hcl 50 Mg Tablet) 150 mg PO DAILY [facility] Last Admin: 06/04/24 09:24 Dose: 150 mg Allergies Allergies Allergy/AdvReac Type Severity Reaction Status Date / Time Penicillins Allergy Intermediate HIVES Verified 03/14/24 15:53 Assessment & Plan Assessment & Plan (1) Schizoaffective disorder, bipolar type: Status: Acute Code(s): F25.0 - Schizoaffective disorder, bipolar type (2) Acute stress disorder: Status: Acute Code(s): F43.0 - Acute stress reaction (3) Opioid use disorder: Status: Acute Code(s): F11.90 - Opioid use, unspecified, uncomplicated Plan ASD, PTSD, Recurrent Major Depression, Polysubstance Use Disorder; also manic episodes; AH independent of mood Hospital course: 05/23: Continue current regimen and plans 05/24: Continue current regimen and plan 05/26: EKG as Seroquel prn has been added. 05/28: Ibuprofen prn for back pain Tolerating Trileptal trial 05/29 reviewed history and it seems that patient meets criteria for schizoaffective disorder, bipolar type. Patient reports that she has been quite depressed; she says her mood improved for 1 day and she had less anxiety, attended to ADLs but returned has been present for the past 2 days. She denies any SI. Patient says that the Seroquel and Zoloft were started at [facility]; she says that there she was still depressed but was overall feeling better enough to discharge. She said post discharge she had a manic episode and then got depressed. Reviewed history with patient: Patient reports being sober for 7 years, relapsed this past February when her mother (and then for 2 weeks) in past, while sober she reports history of manic episodes that can last anywhere from 3-7 days; episodes include episodes of talking fast, lots of activity...shopping sprees, buying excessive amount of scratch tickets...mind racing, having a lot of energy, not sleeping at all for 2-3 days and then very little for subsequent days... hanging around friends I should not be with (who shoplifters...) and which resulted in relapse.... Patient reports her friends notice these changes in her behavior. After such an episode, patient gets very depressed. She says this post manic depression is what resulted in this admission to [place]. Patient reports many past hospitalizations for depression often happen after a manic episode; she says some duration of manic episode happens about twice a month. Regarding history of depression, patient reports that medications have been partially helpful but depression remains. -Patient reports that her Mother had Schizoaffective disorder, bipolar type (Schizophrenia with manic episodes). Initially patient was reticent to talk about AVH; however she opened up and reports that daily she experiences AH telling her to pull her hair, to do things to hurt self; if her on people the voice will say that people are talking about her... She thinks that this is real and has a hard time ignoring it; she was however open to considering it might be her mind playing tricks on her because of mental illness. She reports presence of AH independent of mood. Discussed medication management for symptoms and reviewed risks/side-effects of Vraylar and pt willing to start (considered lithium; patient does not remember if past med trials were helpful) will dc Trileptal; just started 2 days ago; no effect yet discussed insomnia; she thinks Trazodone may work if 100mg; will schedule Trazodone and make Seroquel 200mg a prn for continued insomnia (goal to only be on 1 antipsychotic) 05/30 still AH, no changes but no side-effects; still depressed and hard to do ADL's but is forcing herself to shower agrees to increased vraylar; says slept well enough on trazodone; asks for extra PRN trazodone since waking at night. 05/31 Patient reports that mood is better today. She was proud of herself that she went to a group and showered yesterday. She says that auditory hallucinations are the same but is grateful for abating depression. -continue current Vraylar 3 mg; was just started on this dose and hopefully AH will diminish as well. 06/02: DC Trazodone Remeron 15 mg HS Buspirone 10 mg tid Seroquel 200 mg HS 06/04: Increase daytime Seroquel to 75 mg 0900,1400. Plan: CV Q 15 minute checks Continue Vraylar 3 mg daily; Discontinue Trileptal; just started 2 days ago and no effect yet; replacing with Vraylar Continue Zoloft 150 mg; recently titrated Continue doxepin Continue prazosin DC Seroquel 200 mg q.h.s; trazodone effective (and avoiding pt being on 2 antipsychotics) Scheduled trazodone 100 mg q.h.s.; Extra 50mg prn available History of Med trials: Seroquel Abilify Risperdone Depakote Reason for continued inpatient stay Substantial Risk for: rapid decompensation Time Spent With Patient Time: Total time managing care of this patient today ____ minutes.
[2024-06-04 17:52] VITALS: BMI 36.2
[2024-06-04 20:00] VITALS: BP 141/72; PULSE 70; RESP 18; TEMP 36.9; O2SAT 99
[2024-06-04] MEDS: Mirtazapine 15 MG TABLET PO (20:47)
[2024-06-04] MEDS: Pramipexole Di-HCL 0.125 MG TABLET PO (20:47)
[2024-06-04] MEDS: QUEtiapine Fumarate 200 MG TABLET PO (20:47)
[2024-06-04] MEDS: Doxepin HCl 10 MG CAPSULE 20 MG PO (20:47)
[2024-06-04] MEDS: Prazosin HCL 1 MG CAPSULE 4 MG PO (20:47)
[2024-06-05] MEDS: methADONE HCl 20 MG/2 ML ORAL.CONC 100 MG PO (07:49)
[2024-06-05 08:00] VITALS: BP 125/62; PULSE 64; RESP 14; TEMP 36.4; O2SAT 97
[2024-06-05] MEDS: Nicotine 21 MG PATCH.TD24 TRANSDERMA (08:52)
[2024-06-05] MEDS: QUEtiapine Fumarate 25 MG TABLET 75 MG PO ×2 (08:52→15:01)
[2024-06-05] MEDS: busPIRone HCl 10 MG TABLET PO ×3 (08:52→20:47)
[2024-06-05] MEDS: Sertraline HCL 50 MG TABLET 150 MG PO (08:52)
--- NOTE | 2024-06-05 10:35 | HO.PSYCHPN ---
Subjective Subjective Date of Service: 06/05/24 Reason For Visit: mood disorder Subjective Notes: Conditional Voluntary Healthcare Proxy: No Guardianship: No Medical Problems Affecting Mental Status: No Interim History: Reports some improvement. Attentive to ADL's. Came out of her room to meet with tw today. Anxiety is still an issue. Will trial Klonopin 0.5 mg bid Medication Compliance: Yes Side effects from medications: No Attending Groups: Intermittent Review of Systems Acute medical concerns: No Medical Review of Systems: unchanged Review of Systems Review of Systems Yes all other systems are reviewed and are negative Mental Status Exam Mental Status Exam Patient Appearance: Appropriate Patient Orientation: Person, Place, Time and Situation Level of Consciousness: Alert Patient Behavior: Appropriate, Talkative, Cooperative and Good Eye Contact Mood Description: Depressed and Anxious Affect Description: Flat Patient Cognition Impaired: No Ability to Follow Directions: Good Speech Pattern: Spontaneous Speech Memory Description: Intact Hallucinations: Auditory (CAH at times to suicide) Delusions: Not Present Perceptual Disturbances: Depersonalization and Derealization Thought Process: Rumination Thought Content: positive for Perseveration Depressive Symptoms: Increased Anxiety and Sleeping More Than Usual Judgement: Fair Diagnostics Vital Signs (24Hr): Vital Signs - 24 hr 06/04/24 20:00 06/05/24 08:00 Temperature 98.4 F 97.6 F Pulse Rate 70 64 Respiratory Rate 18 14 Blood Pressure 141/72 H 125/62 Pulse Oximetry 99 97 Oxygen Delivery Method Room Air Room Air BMI result Body Mass Index 36.2 Labs 05/22/24 08:24 Medications Medications Current Medications Acetaminophen (Acetaminophen 325 Mg Tablet) 650 mg PO Q6H PRN PRN Reason: Headache/Pain Mild Scale (1-3) Last Admin: 05/28/24 20:41 Dose: 650 mg Al Hydroxide/Mg Hydroxide (Magnesium Hydrox/Alum Hydrox 30 Ml Oral.Susp) 30 ml PO Q6H PRN PRN Reason: Heartburn/Nausea Albuterol Sulfate (Albuterol Sulfate 90 Mcg 8 Gm Inhaler) 2 puff INHALE Q6H PRN PRN Reason: wheezing Buspirone HCl (Buspirone Hcl 10 Mg Tablet) 10 mg PO TID IJEOMA Last Admin: 06/05/24 08:52 Dose: 10 mg Chlorpromazine HCl (Chlorpromazine Hcl 25 Mg Tablet) 50 mg PO Q4H PRN PRN Reason: Agitation Last Admin: 06/04/24 20:48 Dose: 50 mg Cyclobenzaprine HCl (Cyclobenzaprine Hcl 10 Mg Tablet) 10 mg PO TID PRN PRN Reason: Back pain Last Admin: 06/04/24 20:47 Dose: 10 mg Doxepin HCl (Doxepin Hcl 10 Mg Capsule) 20 mg PO BEDTIME IJEOMA Last Admin: 06/04/24 20:47 Dose: 20 mg Hydroxyzine HCl (Hydroxyzine Hcl 25 Mg Tablet) 25 mg PO Q6H PRN PRN Reason: Anxiety Last Admin: 05/28/24 20:52 Dose: 25 mg Ibuprofen (Ibuprofen 800 Mg Tablet) 800 mg PO Q8H PRN PRN Reason: Back pain Magnesium Hydroxide (Milk Of Magnesia 30 Ml Oral.Susp) 30 ml PO DAILY PRN PRN Reason: Constipation Methadone HCl (Methadone Hcl 20 Mg/2 Ml Oral.Conc) 100 mg PO DAILY IJEOMA Last Admin: 06/05/24 07:49 Dose: 100 mg Mirtazapine (Mirtazapine 15 Mg Tablet) 15 mg PO BEDTIME IJEOMA Last Admin: 06/04/24 20:47 Dose: 15 mg Nicotine (Nicotine 21 Mg Patch.Td24) 21 mg TRANSDERMA DAILY PRN PRN Reason: nicotine cravings Last Admin: 06/05/24 08:52 Dose: 21 mg Nicotine Polacrilex (Nicotine Polacrilex Lozenge 4 Mg Lozenge) 4 mg BUCCAL Q2H PRN PRN Reason: Nicotine Cravings Pramipexole Dihydrochloride (Pramipexole Di-Hcl 0.125 Mg Tablet) 0.125 mg PO BEDTIME IJEOMA Last Admin: 06/04/24 20:47 Dose: 0.125 mg Prazosin HCl (Prazosin Hcl 1 Mg Capsule) 4 mg PO BEDTIME IJEOMA; Protocol Last Admin: 06/04/24 20:47 Dose: 4 mg Quetiapine Fumarate (Quetiapine Fumarate 50 Mg Tablet) 50 mg PO TID PRN PRN Reason: anxiety, agitation Last Admin: 05/30/24 20:38 Dose: 50 mg Quetiapine Fumarate (Quetiapine Fumarate 200 Mg Tablet) 200 mg PO BEDTIME IJEOMA Last Admin: 06/04/24 20:47 Dose: 200 mg Quetiapine Fumarate (Quetiapine Fumarate 25 Mg Tablet) 75 mg PO BID@0900,1400 IJEOMA Last Admin: 06/05/24 08:52 Dose: 75 mg Sertraline HCl (Sertraline Hcl 50 Mg Tablet) 150 mg PO DAILY [facility] Last Admin: 06/05/24 08:52 Dose: 150 mg Allergies Allergies Allergy/AdvReac Type Severity Reaction Status Date / Time Penicillins Allergy Intermediate HIVES Verified 03/14/24 15:53 Assessment & Plan Assessment & Plan (1) Schizoaffective disorder, bipolar type: Status: Acute Code(s): F25.0 - Schizoaffective disorder, bipolar type (2) Acute stress disorder: Status: Acute Code(s): F43.0 - Acute stress reaction (3) Opioid use disorder: Status: Acute Code(s): F11.90 - Opioid use, unspecified, uncomplicated Plan ASD, PTSD, Recurrent Major Depression, Polysubstance Use Disorder; also manic episodes; AH independent of mood Hospital course: 05/23: Continue current regimen and plans 05/24: Continue current regimen and plan 05/26: EKG as Seroquel prn has been added. 05/28: Ibuprofen prn for back pain Tolerating Trileptal trial 05/29 reviewed history and it seems that patient meets criteria for schizoaffective disorder, bipolar type. Patient reports that she has been quite depressed; she says her mood improved for 1 day and she had less anxiety, attended to ADLs but returned has been present for the past 2 days. She denies any SI. Patient says that the Seroquel and Zoloft were started at [facility]; she says that there she was still depressed but was overall feeling better enough to discharge. She said post discharge she had a manic episode and then got depressed. Reviewed history with patient: Patient reports being sober for 7 years, relapsed this past February when her mother (and then for 2 weeks) in past, while sober she reports history of manic episodes that can last anywhere from 3-7 days; episodes include episodes of talking fast, lots of activity...shopping sprees, buying excessive amount of scratch tickets...mind racing, having a lot of energy, not sleeping at all for 2-3 days and then very little for subsequent days... hanging around friends I should not be with (who shoplifters...) and which resulted in relapse.... Patient reports her friends notice these changes in her behavior. After such an episode, patient gets very depressed. She says this post manic depression is what resulted in this admission to [place]. Patient reports many past hospitalizations for depression often happen after a manic episode; she says some duration of manic episode happens about twice a month. Regarding history of depression, patient reports that medications have been partially helpful but depression remains. -Patient reports that her Mother had Schizoaffective disorder, bipolar type (Schizophrenia with manic episodes). Initially patient was reticent to talk about AVH; however she opened up and reports that daily she experiences AH telling her to pull her hair, to do things to hurt self; if her on people the voice will say that people are talking about her... She thinks that this is real and has a hard time ignoring it; she was however open to considering it might be her mind playing tricks on her because of mental illness. She reports presence of AH independent of mood. Discussed medication management for symptoms and reviewed risks/side-effects of Vraylar and pt willing to start (considered lithium; patient does not remember if past med trials were helpful) will dc Trileptal; just started 2 days ago; no effect yet discussed insomnia; she thinks Trazodone may work if 100mg; will schedule Trazodone and make Seroquel 200mg a prn for continued insomnia (goal to only be on 1 antipsychotic) 05/30 still AH, no changes but no side-effects; still depressed and hard to do ADL's but is forcing herself to shower agrees to increased vraylar; says slept well enough on trazodone; asks for extra PRN trazodone since waking at night. 05/31 Patient reports that mood is better today. She was proud of herself that she went to a group and showered yesterday. She says that auditory hallucinations are the same but is grateful for abating depression. -continue current Vraylar 3 mg; was just started on this dose and hopefully AH will diminish as well. 06/02: DC Trazodone Remeron 15 mg HS Buspirone 10 mg tid Seroquel 200 mg HS 06/04: Increase daytime Seroquel to 75 mg 0900,1400. 06/05: Klonopin 0.5 mg bid Plan: CV Q 15 minute checks Continue Vraylar 3 mg daily; Discontinue Trileptal; just started 2 days ago and no effect yet; replacing with Vraylar Continue Zoloft 150 mg; recently titrated Continue doxepin Continue prazosin DC Seroquel 200 mg q.h.s; trazodone effective (and avoiding pt being on 2 antipsychotics) Scheduled trazodone 100 mg q.h.s.; Extra 50mg prn available History of Med trials: Seroquel Abilify Risperdone Depakote Reason for continued inpatient stay Substantial Risk for: rapid decompensation Time Spent With Patient Time: Total time managing care of this patient today ____ minutes.
[2024-06-05 20:45] VITALS: BP 131/73; PULSE 78; RESP 16; TEMP 36.6; O2SAT 98
[2024-06-05] MEDS: Mirtazapine 15 MG TABLET PO (20:45)
[2024-06-05] MEDS: Doxepin HCl 10 MG CAPSULE 20 MG PO (20:46)
[2024-06-05] MEDS: QUEtiapine Fumarate 200 MG TABLET PO (20:46)
[2024-06-05] MEDS: Cyclobenzaprine HCl 10 MG TABLET PO (20:46)
[2024-06-05] MEDS: clonazePAM 0.5 MG TABLET PO (20:46)
[2024-06-05] MEDS: Pramipexole Di-HCL 0.125 MG TABLET PO (20:46)
[2024-06-05 20:47] VITALS: BP 131/73
[2024-06-05] MEDS: chlorproMAZINE HCl 25 MG TABLET 50 MG PO (20:47)
[2024-06-05] MEDS: Prazosin HCL 1 MG CAPSULE 4 MG PO (20:47)
[2024-06-06] MEDS: methADONE HCl 20 MG/2 ML ORAL.CONC 100 MG PO (07:55)
[2024-06-06 08:00] VITALS: BP 121/74; PULSE 61; RESP 16; TEMP 36.4; O2SAT 98
--- NOTE | 2024-06-06 08:43 | HO.PSYCHPN ---
Subjective Subjective Date of Service: 06/06/24 Reason For Visit: mood disorder Subjective Notes: Conditional Voluntary Healthcare Proxy: No Guardianship: No Medical Problems Affecting Mental Status: No Interim History: Pt seen, reviewed with the team. Gradual improvement, which she notices and feels. Kenzie has helped. I promise I will not abuse it-it helps me so much. More visable in the milieu, social with room-mate, attending some groups. I never thought I would feel better. More attentive to ADL's. Discussed increasing milieu involvement, talking of her issues, feelings, concerns with the group Medication Compliance: Yes Side effects from medications: No Attending Groups: Intermittent Review of Systems Acute medical concerns: No Medical Review of Systems: unchanged Review of Systems Review of Systems Yes all other systems are reviewed and are negative Mental Status Exam Mental Status Exam Patient Appearance: Appropriate Patient Orientation: Person, Place, Time and Situation Level of Consciousness: Alert Patient Behavior: Appropriate, Talkative, Cooperative and Good Eye Contact Mood Description: Depressed and Anxious Affect Description: Flat Patient Cognition Impaired: No Ability to Follow Directions: Good Speech Pattern: Spontaneous Speech Memory Description: Intact Delusions: Not Present Perceptual Disturbances: Depersonalization and Derealization Thought Process: Rumination Thought Content: positive for Perseveration Depressive Symptoms: Increased Anxiety Judgement: Good Diagnostics Vital Signs (24Hr): Vital Signs - 24 hr 06/05/24 20:45 06/05/24 20:47 Temperature 97.9 F Pulse Rate 78 Respiratory Rate 16 Blood Pressure 131/73 131/73 Pulse Oximetry 98 Oxygen Delivery Method Room Air BMI result Body Mass Index 36.2 Labs 05/22/24 08:24 Medications Medications Current Medications Acetaminophen (Acetaminophen 325 Mg Tablet) 650 mg PO Q6H PRN PRN Reason: Headache/Pain Mild Scale (1-3) Last Admin: 05/28/24 20:41 Dose: 650 mg Al Hydroxide/Mg Hydroxide (Magnesium Hydrox/Alum Hydrox 30 Ml Oral.Susp) 30 ml PO Q6H PRN PRN Reason: Heartburn/Nausea Albuterol Sulfate (Albuterol Sulfate 90 Mcg 8 Gm Inhaler) 2 puff INHALE Q6H PRN PRN Reason: wheezing Buspirone HCl (Buspirone Hcl 10 Mg Tablet) 10 mg PO TID [facility] Last Admin: 06/05/24 20:47 Dose: 10 mg Chlorpromazine HCl (Chlorpromazine Hcl 25 Mg Tablet) 50 mg PO Q4H PRN PRN Reason: Agitation Last Admin: 06/05/24 20:47 Dose: 50 mg Clonazepam (Clonazepam 0.5 Mg Tablet) 0.5 mg PO BID [facility] Last Admin: 06/05/24 20:46 Dose: 0.5 mg Cyclobenzaprine HCl (Cyclobenzaprine Hcl 10 Mg Tablet) 10 mg PO TID PRN PRN Reason: Back pain Last Admin: 06/05/24 20:46 Dose: 10 mg Doxepin HCl (Doxepin Hcl 10 Mg Capsule) 20 mg PO BEDTIME [facility] Last Admin: 06/05/24 20:46 Dose: 20 mg Hydroxyzine HCl (Hydroxyzine Hcl 25 Mg Tablet) 25 mg PO Q6H PRN PRN Reason: Anxiety Last Admin: 05/28/24 20:52 Dose: 25 mg Ibuprofen (Ibuprofen 800 Mg Tablet) 800 mg PO Q8H PRN PRN Reason: Back pain Lidocaine (Lidocaine 4 % Patch Adh..Patch) 1 patch TRANSDERMA DAILY [facility]; Protocol Magnesium Hydroxide (Milk Of Magnesia 30 Ml Oral.Susp) 30 ml PO DAILY PRN PRN Reason: Constipation Methadone HCl (Methadone Hcl 20 Mg/2 Ml Oral.Conc) 100 mg PO DAILY [facility] Last Admin: 06/06/24 07:55 Dose: 100 mg Mirtazapine (Mirtazapine 15 Mg Tablet) 15 mg PO BEDTIME [facility] Last Admin: 06/05/24 20:45 Dose: 15 mg Nicotine (Nicotine 21 Mg Patch.Td24) 21 mg TRANSDERMA DAILY PRN PRN Reason: nicotine cravings Last Admin: 06/05/24 08:52 Dose: 21 mg Nicotine Polacrilex (Nicotine Polacrilex Lozenge 4 Mg Lozenge) 4 mg BUCCAL Q2H PRN PRN Reason: Nicotine Cravings Pramipexole Dihydrochloride (Pramipexole Di-Hcl 0.125 Mg Tablet) 0.125 mg PO BEDTIME [facility] Last Admin: 06/05/24 20:46 Dose: 0.125 mg Prazosin HCl (Prazosin Hcl 1 Mg Capsule) 4 mg PO BEDTIME [facility]; Protocol Last Admin: 06/05/24 20:47 Dose: 4 mg Quetiapine Fumarate (Quetiapine Fumarate 50 Mg Tablet) 50 mg PO TID PRN PRN Reason: anxiety, agitation Last Admin: 05/30/24 20:38 Dose: 50 mg Quetiapine Fumarate (Quetiapine Fumarate 200 Mg Tablet) 200 mg PO BEDTIME [facility] Last Admin: 06/05/24 20:46 Dose: 200 mg Quetiapine Fumarate (Quetiapine Fumarate 25 Mg Tablet) 75 mg PO BID@0900,1400 [facility] Last Admin: 06/05/24 15:01 Dose: 75 mg Sertraline HCl (Sertraline Hcl 50 Mg Tablet) 150 mg PO DAILY [facility] Last Admin: 06/05/24 08:52 Dose: 150 mg Allergies Allergies Allergy/AdvReac Type Severity Reaction Status Date / Time Penicillins Allergy Intermediate HIVES Verified 03/14/24 15:53 Assessment & Plan Assessment & Plan (1) Schizoaffective disorder, bipolar type: Status: Acute Code(s): F25.0 - Schizoaffective disorder, bipolar type (2) Acute stress disorder: Status: Acute Code(s): F43.0 - Acute stress reaction (3) Opioid use disorder: Status: Acute Code(s): F11.90 - Opioid use, unspecified, uncomplicated Plan ASD, PTSD, Recurrent Major Depression, Polysubstance Use Disorder; also manic episodes; AH independent of mood Hospital course: 05/23: Continue current regimen and plans 05/24: Continue current regimen and plan 05/26: EKG as Seroquel prn has been added. 05/28: Ibuprofen prn for back pain Tolerating Trileptal trial 05/29 reviewed history and it seems that patient meets criteria for schizoaffective disorder, bipolar type. Patient reports that she has been quite depressed; she says her mood improved for 1 day and she had less anxiety, attended to ADLs but returned has been present for the past 2 days. She denies any SI. Patient says that the Seroquel and Zoloft were started at [facility]; she says that there she was still depressed but was overall feeling better enough to discharge. She said post discharge she had a manic episode and then got depressed. Reviewed history with patient: Patient reports being sober for 7 years, relapsed this past February when her mother (and then for 2 weeks) in past, while sober she reports history of manic episodes that can last anywhere from 3-7 days; episodes include episodes of talking fast, lots of activity...shopping sprees, buying excessive amount of scratch tickets...mind racing, having a lot of energy, not sleeping at all for 2-3 days and then very little for subsequent days... hanging around friends I should not be with (who shoplifters...) and which resulted in relapse.... Patient reports her friends notice these changes in her behavior. After such an episode, patient gets very depressed. She says this post manic depression is what resulted in this admission to [facility]. Patient reports many past hospitalizations for depression often happen after a manic episode; she says some duration of manic episode happens about twice a month. Regarding history of depression, patient reports that medications have been partially helpful but depression remains. -Patient reports that her Mother had Schizoaffective disorder, bipolar type (Schizophrenia with manic episodes). Initially patient was reticent to talk about AVH; however she opened up and reports that daily she experiences AH telling her to pull her hair, to do things to hurt self; if her on people the voice will say that people are talking about her... She thinks that this is real and has a hard time ignoring it; she was however open to considering it might be her mind playing tricks on her because of mental illness. She reports presence of AH independent of mood. Discussed medication management for symptoms and reviewed risks/side-effects of Vraylar and pt willing to start (considered lithium; patient does not remember if past med trials were helpful) will dc Trileptal; just started 2 days ago; no effect yet discussed insomnia; she thinks Trazodone may work if 100mg; will schedule Trazodone and make Seroquel 200mg a prn for continued insomnia (goal to only be on 1 antipsychotic) 05/30 still AH, no changes but no side-effects; still depressed and hard to do ADL's but is forcing herself to shower agrees to increased vraylar; says slept well enough on trazodone; asks for extra PRN trazodone since waking at night. 05/31 Patient reports that mood is better today. She was proud of herself that she went to a group and showered yesterday. She says that auditory hallucinations are the same but is grateful for abating depression. -continue current Vraylar 3 mg; was just started on this dose and hopefully AH will diminish as well. 06/02: DC Trazodone Remeron 15 mg HS Buspirone 10 mg tid Seroquel 200 mg HS 06/04: Increase daytime Seroquel to 75 mg 0900,1400. 06/05: Klonopin 0.5 mg bid 06/06: Continue tx. Plan: CV Q 15 minute checks Continue Vraylar 3 mg daily; Discontinue Trileptal; just started 2 days ago and no effect yet; replacing with Vraylar Continue Zoloft 150 mg; recently titrated Continue doxepin Continue prazosin DC Seroquel 200 mg q.h.s; trazodone effective (and avoiding pt being on 2 antipsychotics) Scheduled trazodone 100 mg q.h.s.; Extra 50mg prn available History of Med trials: Seroquel Abilify Risperdone Depakote Reason for continued inpatient stay Substantial Risk for: rapid decompensation Time Spent With Patient Time: Total time managing care of this patient today ____ minutes.
[2024-06-06] MEDS: Nicotine 21 MG PATCH.TD24 TRANSDERMA (08:56)
[2024-06-06] MEDS: Sertraline HCL 50 MG TABLET 150 MG PO (08:57)
[2024-06-06] MEDS: clonazePAM 0.5 MG TABLET PO ×2 (08:57→21:36)
[2024-06-06] MEDS: QUEtiapine Fumarate 25 MG TABLET 75 MG PO ×2 (08:57→14:49)
[2024-06-06] MEDS: busPIRone HCl 10 MG TABLET PO ×3 (08:57→21:34)
[2024-06-06] MEDS: Cyclobenzaprine HCl 10 MG TABLET PO ×3 (09:00→21:35)
[2024-06-06] MEDS: chlorproMAZINE HCl 25 MG TABLET 50 MG PO ×2 (14:49→19:05)
[2024-06-06 20:00] VITALS: BP 139/75; PULSE 71; RESP 16; TEMP 36.4; O2SAT 99
[2024-06-06] MEDS: Pramipexole Di-HCL 0.125 MG TABLET PO (21:35)
[2024-06-06] MEDS: Ibuprofen 800 MG TABLET PO (21:35)
[2024-06-06] MEDS: Doxepin HCl 10 MG CAPSULE 20 MG PO (21:35)
[2024-06-06] MEDS: Mirtazapine 15 MG TABLET PO (21:35)
[2024-06-06 21:36] VITALS: BP 177/63
[2024-06-06] MEDS: Prazosin HCL 1 MG CAPSULE 4 MG PO (21:36)
[2024-06-06] MEDS: QUEtiapine Fumarate 200 MG TABLET PO (21:36)
[2024-06-07] MEDS: methADONE HCl 20 MG/2 ML ORAL.CONC 100 MG PO (07:34)
[2024-06-07 08:00] VITALS: BP 123/73; PULSE 59; RESP 16; TEMP 36.5; O2SAT 99
[2024-06-07] MEDS: Nicotine 21 MG PATCH.TD24 TRANSDERMA (08:43)
[2024-06-07] MEDS: Cyclobenzaprine HCl 10 MG TABLET PO ×2 (08:43→14:51)
[2024-06-07] MEDS: chlorproMAZINE HCl 25 MG TABLET 50 MG PO ×2 (08:43→14:50)
[2024-06-07] MEDS: clonazePAM 0.5 MG TABLET PO ×2 (08:44→20:18)
[2024-06-07] MEDS: busPIRone HCl 10 MG TABLET PO ×3 (08:44→20:18)
[2024-06-07] MEDS: QUEtiapine Fumarate 25 MG TABLET 75 MG PO ×2 (08:44→14:51)
[2024-06-07] MEDS: Sertraline HCL 50 MG TABLET 150 MG PO (08:44)
--- NOTE | 2024-06-07 16:13 | P.PNPSI_ITS ---
Subjective Subjective Date of Service: 06/07/24 Reason For Visit: mood disorder Subjective Notes: Conditional Voluntary Healthcare Proxy: No Guardianship: No Medical Problems Affecting Mental Status: No Interim History: Pt seen, reviewed with team. I have given myself a second chance Reports a decrease in anxiety, feeling more able to be in milieu. States she was able to be out in milieu last evening from 8-10pm. Reports significant back discomfort. Hx of L5 disc involvement. Lidocaine Patch useful. Discussed x ray which she agrees with. Medication Compliance: Yes Side effects from medications: No Attending Groups: Intermittent Review of Systems Back pain Medical Review of Systems: unchanged Review of Systems Review of Systems Back pain Mental Status Exam Mental Status Exam Patient Appearance: Appropriate Patient Orientation: Person, Place, Time and Situation Level of Consciousness: Alert Patient Behavior: Appropriate, Talkative, Cooperative and Good Eye Contact Mood Description: Depressed and Anxious Affect Description: Flat Patient Cognition Impaired: No Ability to Follow Directions: Good Speech Pattern: Spontaneous Speech Memory Description: Intact Delusions: Not Present Perceptual Disturbances: Depersonalization and Derealization Thought Process: Rumination Thought Content: positive for Perseveration Depressive Symptoms: Increased Anxiety Judgement: Good Diagnostics Vital Signs (24Hr): Vital Signs - 24 hr 06/06/24 20:00 06/06/24 21:36 06/07/24 08:00 Temperature 97.6 F 97.7 F Pulse Rate 71 59 Respiratory Rate 16 16 Blood Pressure 139/75 177/63 H 123/73 Pulse Oximetry 99 99 Oxygen Delivery Method Room Air Room Air BMI result Body Mass Index 36.2 Labs 05/22/24 08:24 Medications Medications Current Medications Acetaminophen (Acetaminophen 325 Mg Tablet) 650 mg PO Q6H PRN PRN Reason: Headache/Pain Mild Scale (1-3) Last Admin: 05/28/24 20:41 Dose: 650 mg Al Hydroxide/Mg Hydroxide (Magnesium Hydrox/Alum Hydrox 30 Ml Oral.Susp) 30 ml PO Q6H PRN PRN Reason: Heartburn/Nausea Albuterol Sulfate (Albuterol Sulfate 90 Mcg 8 Gm Inhaler) 2 puff INHALE Q6H PRN PRN Reason: wheezing Buspirone HCl (Buspirone Hcl 10 Mg Tablet) 10 mg PO TID [facility] Last Admin: 06/07/24 14:51 Dose: 10 mg Chlorpromazine HCl (Chlorpromazine Hcl 25 Mg Tablet) 50 mg PO Q4H PRN PRN Reason: Agitation Last Admin: 06/07/24 14:50 Dose: 50 mg Clonazepam (Clonazepam 0.5 Mg Tablet) 0.5 mg PO BID [facility] Last Admin: 06/07/24 08:44 Dose: 0.5 mg Cyclobenzaprine HCl (Cyclobenzaprine Hcl 10 Mg Tablet) 10 mg PO TID PRN PRN Reason: Back pain Last Admin: 06/07/24 14:51 Dose: 10 mg Doxepin HCl (Doxepin Hcl 10 Mg Capsule) 20 mg PO BEDTIME [facility] Last Admin: 06/06/24 21:35 Dose: 20 mg Hydroxyzine HCl (Hydroxyzine Hcl 25 Mg Tablet) 25 mg PO Q6H PRN PRN Reason: Anxiety Last Admin: 05/28/24 20:52 Dose: 25 mg Ibuprofen (Ibuprofen 800 Mg Tablet) 800 mg PO Q8H PRN PRN Reason: Back pain Last Admin: 06/06/24 21:35 Dose: 800 mg Lidocaine (Lidocaine 4 % Patch Adh..Patch) 1 patch TRANSDERMA DAILY [facility]; Protocol Last Admin: 06/07/24 11:04 Dose: Not Given Magnesium Hydroxide (Milk Of Magnesia 30 Ml Oral.Susp) 30 ml PO DAILY PRN PRN Reason: Constipation Methadone HCl (Methadone Hcl 20 Mg/2 Ml Oral.Conc) 100 mg PO DAILY [facility] Last Admin: 06/07/24 07:34 Dose: 100 mg Mirtazapine (Mirtazapine 15 Mg Tablet) 15 mg PO BEDTIME [facility] Last Admin: 06/06/24 21:35 Dose: 15 mg Nicotine (Nicotine 21 Mg Patch.Td24) 21 mg TRANSDERMA DAILY PRN PRN Reason: nicotine cravings Last Admin: 06/07/24 08:43 Dose: 21 mg Nicotine Polacrilex (Nicotine Polacrilex Lozenge 4 Mg Lozenge) 4 mg BUCCAL Q2H PRN PRN Reason: Nicotine Cravings Pramipexole Dihydrochloride (Pramipexole Di-Hcl 0.125 Mg Tablet) 0.125 mg PO BEDTIME [facility] Last Admin: 06/06/24 21:35 Dose: 0.125 mg Prazosin HCl (Prazosin Hcl 1 Mg Capsule) 4 mg PO BEDTIME [facility]; Protocol Last Admin: 06/06/24 21:36 Dose: 4 mg Quetiapine Fumarate (Quetiapine Fumarate 50 Mg Tablet) 50 mg PO TID PRN PRN Reason: anxiety, agitation Last Admin: 05/30/24 20:38 Dose: 50 mg Quetiapine Fumarate (Quetiapine Fumarate 200 Mg Tablet) 200 mg PO BEDTIME [facility] Last Admin: 06/06/24 21:36 Dose: 200 mg Quetiapine Fumarate (Quetiapine Fumarate 25 Mg Tablet) 75 mg PO BID@0900,1400 [facility] Last Admin: 06/07/24 14:51 Dose: 75 mg Sertraline HCl (Sertraline Hcl 50 Mg Tablet) 150 mg PO DAILY [facility] Last Admin: 06/07/24 08:44 Dose: 150 mg Allergies Allergies Allergy/AdvReac Type Severity Reaction Status Date / Time Penicillins Allergy Intermediate HIVES Verified 03/14/24 15:53 Assessment & Plan Assessment & Plan (1) Schizoaffective disorder, bipolar type: Status: Acute Code(s): F25.0 - Schizoaffective disorder, bipolar type (2) Acute stress disorder: Status: Acute Code(s): F43.0 - Acute stress reaction (3) Opioid use disorder: Status: Acute Code(s): F11.90 - Opioid use, unspecified, uncomplicated Plan ASD, PTSD, Recurrent Major Depression, Polysubstance Use Disorder; also manic episodes; AH independent of mood Hospital course: 05/23: Continue current regimen and plans 05/24: Continue current regimen and plan 05/26: EKG as Seroquel prn has been added. 05/28: Ibuprofen prn for back pain Tolerating Trileptal trial 05/29 reviewed history and it seems that patient meets criteria for schizoaffective disorder, bipolar type. Patient reports that she has been quite depressed; she says her mood improved for 1 day and she had less anxiety, attended to ADLs but returned has been present for the past 2 days. She denies any SI. Patient says that the Seroquel and Zoloft were started at [facility]; she says that there she was still depressed but was overall feeling better enough to discharge. She said post discharge she had a manic episode and then got depressed. Reviewed history with patient: Patient reports being sober for 7 years, relapsed this past February when her mother (and then for 2 weeks) in past, while sober she reports history of manic episodes that can last anywhere from 3-7 days; episodes include episodes of talking fast, lots of activity...shopping sprees, buying excessive amount of scratch tickets...mind racing, having a lot of energy, not sleeping at all for 2-3 days and then very little for subsequent days... hanging around friends I should not be with (who shoplifters...) and which resulted in relapse.... Patient reports her friends notice these changes in her behavior. After such an episode, patient gets very depressed. She says this post manic depression is what resulted in this admission to [facility]. Patient reports many past hospitalizations for depression often happen after a manic episode; she says some duration of manic episode happens about twice a month. Regarding history of depression, patient reports that medications have been partially helpful but depression remains. -Patient reports that her Mother had Schizoaffective disorder, bipolar type (Schizophrenia with manic episodes). Initially patient was reticent to talk about AVH; however she opened up and reports that daily she experiences AH telling her to pull her hair, to do things to hurt self; if her on people the voice will say that people are talking about her... She thinks that this is real and has a hard time ignoring it; she was however open to considering it might be her mind playing tricks on her because of mental illness. She reports presence of AH independent of mood. Discussed medication management for symptoms and reviewed risks/side-effects of Vraylar and pt willing to start (considered lithium; patient does not remember if past med trials were helpful) will dc Trileptal; just started 2 days ago; no effect yet discussed insomnia; she thinks Trazodone may work if 100mg; will schedule Trazodone and make Seroquel 200mg a prn for continued insomnia (goal to only be on 1 antipsychotic) 05/30 still AH, no changes but no side-effects; still depressed and hard to do ADL's but is forcing herself to shower agrees to increased vraylar; says slept well enough on trazodone; asks for extra PRN trazodone since waking at night. 05/31 Patient reports that mood is better today. She was proud of herself that she went to a group and showered yesterday. She says that auditory hallucinations are the same but is grateful for abating depression. -continue current Vraylar 3 mg; was just started on this dose and hopefully AH will diminish as well. 06/02: DC Trazodone Remeron 15 mg HS Buspirone 10 mg tid Seroquel 200 mg HS 06/04: Increase daytime Seroquel to 75 mg 0900,1400. 06/05: Klonopin 0.5 mg bid 06/07: LS Spine Xray Continue tx. Plan: CV Q 15 minute checks Continue Vraylar 3 mg daily; Discontinue Trileptal; just started 2 days ago and no effect yet; replacing with Vraylar Continue Zoloft 150 mg; recently titrated Continue doxepin Continue prazosin DC Seroquel 200 mg q.h.s; trazodone effective (and avoiding pt being on 2 antipsychotics) Scheduled trazodone 100 mg q.h.s.; Extra 50mg prn available History of Med trials: Seroquel Abilifrankiey Risperdone Depakote Reason for continued inpatient stay Substantial Risk for: rapid decompensation Time Spent With Patient Time: Total time managing care of this patient today ____ minutes.
[2024-06-07 20:00] VITALS: BP 130/69; PULSE 96; TEMP 36.6; O2SAT 98
[2024-06-07] MEDS: Prazosin HCL 1 MG CAPSULE 4 MG PO (20:17)
[2024-06-07] MEDS: Mirtazapine 15 MG TABLET PO (20:18)
[2024-06-07] MEDS: QUEtiapine Fumarate 200 MG TABLET PO (20:18)
[2024-06-07] MEDS: Doxepin HCl 10 MG CAPSULE 20 MG PO (20:18)
[2024-06-07] MEDS: Pramipexole Di-HCL 0.125 MG TABLET PO (20:18)
[2024-06-08] MEDS: methADONE HCl 20 MG/2 ML ORAL.CONC 100 MG PO (07:35)
[2024-06-08 08:00] VITALS: BP 123/73; PULSE 59; RESP 16; TEMP 36.5; O2SAT 99
--- NOTE | 2024-06-08 08:30 | HO.PSYCHPN ---
Subjective Subjective Date of Service: 06/08/24 Reason For Visit: mood disorder Subjective Notes: Conditional Voluntary Healthcare Proxy: No Guardianship: No Medical Problems Affecting Mental Status: No Interim History: Pt reports a difficult night with poor sleep. Unsure of precipitant Discussed Seroquel dosing. PRN is available if HS dosing is ineffective as well as chlorpromazine. Back pain persists. Several agents prescribed to address sx. Medication Compliance: Yes Side effects from medications: No Attending Groups: Intermittent Review of Systems Acute medical concerns: No Medical Review of Systems: unchanged Review of Systems Review of Systems back pain Mental Status Exam Mental Status Exam Patient Appearance: Appropriate Patient Orientation: Person, Place, Time and Situation Level of Consciousness: Alert Patient Behavior: Appropriate, Talkative, Cooperative and Good Eye Contact Mood Description: Depressed and Anxious Affect Description: Flat Patient Cognition Impaired: No Ability to Follow Directions: Good Speech Pattern: Spontaneous Speech Memory Description: Intact Delusions: Not Present Perceptual Disturbances: Depersonalization and Derealization Thought Process: Rumination Thought Content: positive for Perseveration Depressive Symptoms: Increased Anxiety Judgement: Good Diagnostics Vital Signs (24Hr): Vital Signs - 24 hr 06/07/24 20:00 Temperature 97.8 F Pulse Rate 96 Blood Pressure 130/69 Pulse Oximetry 98 Oxygen Delivery Method Room Air BMI result Body Mass Index 36.2 Labs 05/22/24 08:24 Imaging Radiology Impressions: ITS Impressions Lumbar Spine X-Ray 06/07/24 15:00 IMPRESSION: Unremarkable examination. Electronically signed by: Cristy Mathis MD 06/08/2024 07:38 AM EDT Medications Medications Current Medications Acetaminophen (Acetaminophen 325 Mg Tablet) 650 mg PO Q6H PRN PRN Reason: Headache/Pain Mild Scale (1-3) Last Admin: 05/28/24 20:41 Dose: 650 mg Al Hydroxide/Mg Hydroxide (Magnesium Hydrox/Alum Hydrox 30 Ml Oral.Susp) 30 ml PO Q6H PRN PRN Reason: Heartburn/Nausea Albuterol Sulfate (Albuterol Sulfate 90 Mcg 8 Gm Inhaler) 2 puff INHALE Q6H PRN PRN Reason: wheezing Buspirone HCl (Buspirone Hcl 10 Mg Tablet) 10 mg PO TID [facility] Last Admin: 06/07/24 20:18 Dose: 10 mg Chlorpromazine HCl (Chlorpromazine Hcl 25 Mg Tablet) 50 mg PO Q4H PRN PRN Reason: Agitation Last Admin: 06/07/24 14:50 Dose: 50 mg Clonazepam (Clonazepam 0.5 Mg Tablet) 0.5 mg PO BID [facility] Last Admin: 06/07/24 20:18 Dose: 0.5 mg Cyclobenzaprine HCl (Cyclobenzaprine Hcl 10 Mg Tablet) 10 mg PO TID PRN PRN Reason: Back pain Last Admin: 06/07/24 14:51 Dose: 10 mg Doxepin HCl (Doxepin Hcl 10 Mg Capsule) 20 mg PO BEDTIME [facility] Last Admin: 06/07/24 20:18 Dose: 20 mg Hydroxyzine HCl (Hydroxyzine Hcl 25 Mg Tablet) 25 mg PO Q6H PRN PRN Reason: Anxiety Last Admin: 05/28/24 20:52 Dose: 25 mg Ibuprofen (Ibuprofen 800 Mg Tablet) 800 mg PO Q8H PRN PRN Reason: Back pain Last Admin: 06/06/24 21:35 Dose: 800 mg Lidocaine (Lidocaine 4 % Patch Adh..Patch) 1 patch TRANSDERMA DAILY [facility]; Protocol Last Admin: 06/07/24 11:04 Dose: Not Given Magnesium Hydroxide (Milk Of Magnesia 30 Ml Oral.Susp) 30 ml PO DAILY PRN PRN Reason: Constipation Methadone HCl (Methadone Hcl 20 Mg/2 Ml Oral.Conc) 100 mg PO DAILY [facility] Last Admin: 06/08/24 07:35 Dose: 100 mg Mirtazapine (Mirtazapine 15 Mg Tablet) 15 mg PO BEDTIME [facility] Last Admin: 06/07/24 20:18 Dose: 15 mg Nicotine (Nicotine 21 Mg Patch.Td24) 21 mg TRANSDERMA DAILY PRN PRN Reason: nicotine cravings Last Admin: 06/07/24 08:43 Dose: 21 mg Nicotine Polacrilex (Nicotine Polacrilex Lozenge 4 Mg Lozenge) 4 mg BUCCAL Q2H PRN PRN Reason: Nicotine Cravings Pramipexole Dihydrochloride (Pramipexole Di-Hcl 0.125 Mg Tablet) 0.125 mg PO BEDTIME [facility] Last Admin: 06/07/24 20:18 Dose: 0.125 mg Prazosin HCl (Prazosin Hcl 1 Mg Capsule) 4 mg PO BEDTIME [facility]; Protocol Last Admin: 06/07/24 20:17 Dose: 4 mg Quetiapine Fumarate (Quetiapine Fumarate 50 Mg Tablet) 50 mg PO TID PRN PRN Reason: anxiety, agitation Last Admin: 05/30/24 20:38 Dose: 50 mg Quetiapine Fumarate (Quetiapine Fumarate 200 Mg Tablet) 200 mg PO BEDTIME [facility] Last Admin: 06/07/24 20:18 Dose: 200 mg Quetiapine Fumarate (Quetiapine Fumarate 25 Mg Tablet) 75 mg PO BID@0900,1400 [facility] Last Admin: 06/07/24 14:51 Dose: 75 mg Sertraline HCl (Sertraline Hcl 50 Mg Tablet) 150 mg PO DAILY [facility] Last Admin: 06/07/24 08:44 Dose: 150 mg Allergies Allergies Allergy/AdvReac Type Severity Reaction Status Date / Time Penicillins Allergy Intermediate HIVES Verified 03/14/24 15:53 Assessment & Plan Assessment & Plan (1) Schizoaffective disorder, bipolar type: Status: Acute Code(s): F25.0 - Schizoaffective disorder, bipolar type (2) Acute stress disorder: Status: Acute Code(s): F43.0 - Acute stress reaction (3) Opioid use disorder: Status: Acute Code(s): F11.90 - Opioid use, unspecified, uncomplicated Plan ASD, PTSD, Recurrent Major Depression, Polysubstance Use Disorder; also manic episodes; AH independent of mood Hospital course: 05/23: Continue current regimen and plans 05/24: Continue current regimen and plan 05/26: EKG as Seroquel prn has been added. 05/28: Ibuprofen prn for back pain Tolerating Trileptal trial 05/29 reviewed history and it seems that patient meets criteria for schizoaffective disorder, bipolar type. Patient reports that she has been quite depressed; she says her mood improved for 1 day and she had less anxiety, attended to ADLs but returned has been present for the past 2 days. She denies any SI. Patient says that the Seroquel and Zoloft were started at [facility]; she says that there she was still depressed but was overall feeling better enough to discharge. She said post discharge she had a manic episode and then got depressed. Reviewed history with patient: Patient reports being sober for 7 years, relapsed this past February when her mother (and then for 2 weeks) in past, while sober she reports history of manic episodes that can last anywhere from 3-7 days; episodes include episodes of talking fast, lots of activity...shopping sprees, buying excessive amount of scratch tickets...mind racing, having a lot of energy, not sleeping at all for 2-3 days and then very little for subsequent days... hanging around friends I should not be with (who shoplifters...) and which resulted in relapse.... Patient reports her friends notice these changes in her behavior. After such an episode, patient gets very depressed. She says this post manic depression is what resulted in this admission to [place]. Patient reports many past hospitalizations for depression often happen after a manic episode; she says some duration of manic episode happens about twice a month. Regarding history of depression, patient reports that medications have been partially helpful but depression remains. -Patient reports that her Mother had Schizoaffective disorder, bipolar type (Schizophrenia with manic episodes). Initially patient was reticent to talk about AVH; however she opened up and reports that daily she experiences AH telling her to pull her hair, to do things to hurt self; if her on people the voice will say that people are talking about her... She thinks that this is real and has a hard time ignoring it; she was however open to considering it might be her mind playing tricks on her because of mental illness. She reports presence of AH independent of mood. Discussed medication management for symptoms and reviewed risks/side-effects of Vraylar and pt willing to start (considered lithium; patient does not remember if past med trials were helpful) will dc Trileptal; just started 2 days ago; no effect yet discussed insomnia; she thinks Trazodone may work if 100mg; will schedule Trazodone and make Seroquel 200mg a prn for continued insomnia (goal to only be on 1 antipsychotic) 05/30 still AH, no changes but no side-effects; still depressed and hard to do ADL's but is forcing herself to shower agrees to increased vraylar; says slept well enough on trazodone; asks for extra PRN trazodone since waking at night. 05/31 Patient reports that mood is better today. She was proud of herself that she went to a group and showered yesterday. She says that auditory hallucinations are the same but is grateful for abating depression. -continue current Vraylar 3 mg; was just started on this dose and hopefully AH will diminish as well. 06/02: DC Trazodone Remeron 15 mg HS Buspirone 10 mg tid Seroquel 200 mg HS 06/04: Increase daytime Seroquel to 75 mg 0900,1400. 06/05: Klonopin 0.5 mg bid 06/08: Pt will use prn Seroquel/Chlorpromazine to assist with sleep as needed. Plan: CV Q 15 minute checks Continue Vraylar 3 mg daily; Discontinue Trileptal; just started 2 days ago and no effect yet; replacing with Vraylar Continue Zoloft 150 mg; recently titrated Continue doxepin Continue prazosin DC Seroquel 200 mg q.h.s; trazodone effective (and avoiding pt being on 2 antipsychotics) Scheduled trazodone 100 mg q.h.s.; Extra 50mg prn available History of Med trials: Seroquel Abilify Risperdone Depakote Reason for continued inpatient stay Substantial Risk for: rapid decompensation Time Spent With Patient Time: Total time managing care of this patient today ____ minutes.
[2024-06-08] MEDS: Nicotine 21 MG PATCH.TD24 TRANSDERMA (08:50)
[2024-06-08] MEDS: Sertraline HCL 50 MG TABLET 150 MG PO (08:51)
[2024-06-08] MEDS: chlorproMAZINE HCl 25 MG TABLET 50 MG PO ×2 (08:51→14:15)
[2024-06-08] MEDS: busPIRone HCl 10 MG TABLET PO ×3 (08:51→20:24)
[2024-06-08] MEDS: QUEtiapine Fumarate 25 MG TABLET 75 MG PO ×2 (08:51→14:15)
[2024-06-08] MEDS: Cyclobenzaprine HCl 10 MG TABLET PO ×2 (08:51→14:15)
[2024-06-08] MEDS: clonazePAM 0.5 MG TABLET PO ×2 (08:51→20:24)
[2024-06-08] MEDS: Lidocaine 4 % Patch ADH..PATCH 1 PATCH TRANSDERMA (08:56)
[2024-06-08 19:45] VITALS: BP 146/79; PULSE 76; RESP 14; TEMP 36.7; O2SAT 97
[2024-06-08] MEDS: Pramipexole Di-HCL 0.125 MG TABLET PO (20:24)
[2024-06-08] MEDS: Doxepin HCl 10 MG CAPSULE 20 MG PO (20:24)
[2024-06-08] MEDS: QUEtiapine Fumarate 200 MG TABLET PO (20:24)
[2024-06-08] MEDS: Prazosin HCL 1 MG CAPSULE 4 MG PO (20:24)
[2024-06-08] MEDS: Mirtazapine 15 MG TABLET PO (20:24)
[2024-06-09] MEDS: methADONE HCl 20 MG/2 ML ORAL.CONC 100 MG PO (07:48)
[2024-06-09 08:00] VITALS: BP 126/78; PULSE 73; RESP 16; TEMP 36.5; O2SAT 97
[2024-06-09] MEDS: Nicotine 21 MG PATCH.TD24 TRANSDERMA (08:27)
[2024-06-09] MEDS: Lidocaine 4 % Patch ADH..PATCH 1 PATCH TRANSDERMA (08:28)
[2024-06-09] MEDS: Sertraline HCL 50 MG TABLET 150 MG PO (08:30)
[2024-06-09] MEDS: QUEtiapine Fumarate 25 MG TABLET 75 MG PO ×2 (08:30→15:17)
[2024-06-09] MEDS: clonazePAM 0.5 MG TABLET PO ×2 (08:30→20:59)
[2024-06-09] MEDS: busPIRone HCl 10 MG TABLET PO ×3 (08:30→20:59)
--- NOTE | 2024-06-09 09:29 | HO.PSYCHPN ---
Subjective Subjective Date of Service: 06/09/24 Reason For Visit: mood disorder Interim History: met with patient; discussed with team; reviewed chart Reports that mood is overall better and patient does appear brighter. Auditory hallucinations remain. She said they are not as loud but they are still bothersome and hard to ignore. She agreed to increase Seroquel at bedtime to 300 mg. However she says she has been on Seroquel up to 800 mg which did not take care of voices in the past. Mental Status Exam Mental Status Exam Patient Appearance: Appropriate Patient Orientation: Person, Place, Time and Situation Level of Consciousness: Alert Patient Behavior: Appropriate, Talkative, Cooperative and Good Eye Contact Mood Description: Depressed and Anxious Affect Description: Flat Patient Cognition Impaired: No Ability to Follow Directions: Good Speech Pattern: Spontaneous Speech Memory Description: Intact Delusions: Not Present Perceptual Disturbances: Depersonalization and Derealization Thought Process: Rumination Thought Content: positive for Perseveration Depressive Symptoms: Increased Anxiety Judgement: Good Diagnostics Vital Signs (24Hr): Vital Signs - 24 hr 06/08/24 19:45 06/09/24 08:00 Temperature 98.0 F 97.7 F Pulse Rate 76 73 Respiratory Rate 14 16 Blood Pressure 146/79 H 126/78 Pulse Oximetry 97 97 Oxygen Delivery Method Room Air Room Air BMI result Body Mass Index 36.2 Labs 05/22/24 08:24 Imaging Radiology Impressions: ITS Impressions Lumbar Spine X-Ray 06/07/24 15:00 IMPRESSION: Unremarkable examination. Electronically signed by: Cristy Mathis MD 06/08/2024 07:38 AM EDT Medications Medications Current Medications Acetaminophen (Acetaminophen 325 Mg Tablet) 650 mg PO Q6H PRN PRN Reason: Headache/Pain Mild Scale (1-3) Last Admin: 05/28/24 20:41 Dose: 650 mg Al Hydroxide/Mg Hydroxide (Magnesium Hydrox/Alum Hydrox 30 Ml Oral.Susp) 30 ml PO Q6H PRN PRN Reason: Heartburn/Nausea Albuterol Sulfate (Albuterol Sulfate 90 Mcg 8 Gm Inhaler) 2 puff INHALE Q6H PRN PRN Reason: wheezing Buspirone HCl (Buspirone Hcl 10 Mg Tablet) 10 mg PO TID [facility] Last Admin: 06/09/24 08:30 Dose: 10 mg Chlorpromazine HCl (Chlorpromazine Hcl 25 Mg Tablet) 50 mg PO Q4H PRN PRN Reason: Agitation Last Admin: 06/08/24 14:15 Dose: 50 mg Clonazepam (Clonazepam 0.5 Mg Tablet) 0.5 mg PO BID [facility] Last Admin: 06/09/24 08:30 Dose: 0.5 mg Cyclobenzaprine HCl (Cyclobenzaprine Hcl 10 Mg Tablet) 10 mg PO TID PRN PRN Reason: Back pain Last Admin: 06/08/24 14:15 Dose: 10 mg Doxepin HCl (Doxepin Hcl 10 Mg Capsule) 20 mg PO BEDTIME [facility] Last Admin: 06/08/24 20:24 Dose: 20 mg Hydroxyzine HCl (Hydroxyzine Hcl 25 Mg Tablet) 25 mg PO Q6H PRN PRN Reason: Anxiety Last Admin: 05/28/24 20:52 Dose: 25 mg Ibuprofen (Ibuprofen 800 Mg Tablet) 800 mg PO Q8H PRN PRN Reason: Back pain Last Admin: 06/06/24 21:35 Dose: 800 mg Lidocaine (Lidocaine 4 % Patch Adh..Patch) 1 patch TRANSDERMA DAILY [facility]; Protocol Last Admin: 06/09/24 08:28 Dose: 1 patch Magnesium Hydroxide (Milk Of Magnesia 30 Ml Oral.Susp) 30 ml PO DAILY PRN PRN Reason: Constipation Methadone HCl (Methadone Hcl 20 Mg/2 Ml Oral.Conc) 100 mg PO DAILY [facility] Last Admin: 06/09/24 07:48 Dose: 100 mg Mirtazapine (Mirtazapine 15 Mg Tablet) 15 mg PO BEDTIME [facility] Last Admin: 06/08/24 20:24 Dose: 15 mg Nicotine (Nicotine 21 Mg Patch.Td24) 21 mg TRANSDERMA DAILY PRN PRN Reason: nicotine cravings Last Admin: 06/09/24 08:27 Dose: 21 mg Nicotine Polacrilex (Nicotine Polacrilex Lozenge 4 Mg Lozenge) 4 mg BUCCAL Q2H PRN PRN Reason: Nicotine Cravings Pramipexole Dihydrochloride (Pramipexole Di-Hcl 0.125 Mg Tablet) 0.125 mg PO BEDTIME [facility] Last Admin: 06/08/24 20:24 Dose: 0.125 mg Prazosin HCl (Prazosin Hcl 1 Mg Capsule) 4 mg PO BEDTIME [facility]; Protocol Last Admin: 06/08/24 20:24 Dose: 4 mg Quetiapine Fumarate (Quetiapine Fumarate 50 Mg Tablet) 50 mg PO TID PRN PRN Reason: anxiety, agitation Last Admin: 05/30/24 20:38 Dose: 50 mg Quetiapine Fumarate (Quetiapine Fumarate 200 Mg Tablet) 200 mg PO BEDTIME [facility] Last Admin: 06/08/24 20:24 Dose: 200 mg Quetiapine Fumarate (Quetiapine Fumarate 25 Mg Tablet) 75 mg PO BID@0900,1400 [facility] Last Admin: 06/09/24 08:30 Dose: 75 mg Sertraline HCl (Sertraline Hcl 50 Mg Tablet) 150 mg PO DAILY [facility] Last Admin: 06/09/24 08:30 Dose: 150 mg Allergies Allergies Allergy/AdvReac Type Severity Reaction Status Date / Time Penicillins Allergy Intermediate HIVES Verified 03/14/24 15:53 Assessment & Plan Assessment & Plan (1) Schizoaffective disorder, bipolar type: Status: Acute Code(s): F25.0 - Schizoaffective disorder, bipolar type (2) Acute stress disorder: Status: Acute Code(s): F43.0 - Acute stress reaction (3) Opioid use disorder: Status: Acute Code(s): F11.90 - Opioid use, unspecified, uncomplicated Plan ASD, PTSD, Recurrent Major Depression, Polysubstance Use Disorder; also manic episodes; AH independent of mood Hospital course: 05/23: Continue current regimen and plans 05/24: Continue current regimen and plan 05/26: EKG as Seroquel prn has been added. 05/28: Ibuprofen prn for back pain Tolerating Trileptal trial 05/29 reviewed history and it seems that patient meets criteria for schizoaffective disorder, bipolar type. Patient reports that she has been quite depressed; she says her mood improved for 1 day and she had less anxiety, attended to ADLs but returned has been present for the past 2 days. She denies any SI. Patient says that the Seroquel and Zoloft were started at [facility]; she says that there she was still depressed but was overall feeling better enough to discharge. She said post discharge she had a manic episode and then got depressed. Reviewed history with patient: Patient reports being sober for 7 years, relapsed this past February when her mother (and then for 2 weeks) in past, while sober she reports history of manic episodes that can last anywhere from 3-7 days; episodes include episodes of talking fast, lots of activity...shopping sprees, buying excessive amount of scratch tickets...mind racing, having a lot of energy, not sleeping at all for 2-3 days and then very little for subsequent days... hanging around friends I should not be with (who shoplifters...) and which resulted in relapse.... Patient reports her friends notice these changes in her behavior. After such an episode, patient gets very depressed. She says this post manic depression is what resulted in this admission to [place]. Patient reports many past hospitalizations for depression often happen after a manic episode; she says some duration of manic episode happens about twice a month. Regarding history of depression, patient reports that medications have been partially helpful but depression remains. -Patient reports that her Mother had Schizoaffective disorder, bipolar type (Schizophrenia with manic episodes). Initially patient was reticent to talk about AVH; however she opened up and reports that daily she experiences AH telling her to pull her hair, to do things to hurt self; if her on people the voice will say that people are talking about her... She thinks that this is real and has a hard time ignoring it; she was however open to considering it might be her mind playing tricks on her because of mental illness. She reports presence of AH independent of mood. Discussed medication management for symptoms and reviewed risks/side-effects of Vraylar and pt willing to start (considered lithium; patient does not remember if past med trials were helpful) will dc Trileptal; just started 2 days ago; no effect yet discussed insomnia; she thinks Trazodone may work if 100mg; will schedule Trazodone and make Seroquel 200mg a prn for continued insomnia (goal to only be on 1 antipsychotic) 05/30 still AH, no changes but no side-effects; still depressed and hard to do ADL's but is forcing herself to shower agrees to increased vraylar; says slept well enough on trazodone; asks for extra PRN trazodone since waking at night. 05/31 Patient reports that mood is better today. She was proud of herself that she went to a group and showered yesterday. She says that auditory hallucinations are the same but is grateful for abating depression. -continue current Vraylar 3 mg; was just started on this dose and hopefully AH will diminish as well. 06/02: DC Trazodone Remeron 15 mg HS Buspirone 10 mg tid Seroquel 200 mg HS 06/04: Increase daytime Seroquel to 75 mg 0900,1400. 06/05: Klonopin 0.5 mg bid 06/08: Pt will use prn Seroquel/Chlorpromazine to assist with sleep as needed. 06/09 Reports that mood is overall better and patient does appear brighter. Auditory hallucinations remain. She said they are not as loud but they are still bothersome and hard to ignore. She agreed to increase Seroquel at bedtime to 300 mg. However she says she has been on Seroquel up to 800 mg which did not take care of voices in the past. Plan: CV Q 15 minute checks Continue Vraylar 3 mg daily; Discontinue Trileptal; just started 2 days ago and no effect yet; replacing with Vraylar Continue Zoloft 150 mg; recently titrated Continue doxepin Continue prazosin DC Seroquel 200 mg q.h.s; trazodone effective (and avoiding pt being on 2 antipsychotics) Scheduled trazodone 100 mg q.h.s.; Extra 50mg prn available History of Med trials: Seroquel Abigrant Risperdone Depakote Patient educated on: diagnosis and medication risk/benefits Informed Consent: understands Reason for continued inpatient stay Substantial Risk for: rapid decompensation Time Spent With Patient Time: Total time managing care of this patient today ____ minutes.
[2024-06-09] MEDS: hydrOXYzine HCL 25 MG TABLET PO (11:21)
[2024-06-09 20:00] VITALS: BP 131/83; PULSE 98; RESP 16; TEMP 36.4; O2SAT 97
[2024-06-09] MEDS: Pramipexole Di-HCL 0.125 MG TABLET PO (20:59)
[2024-06-09] MEDS: Doxepin HCl 10 MG CAPSULE 20 MG PO (20:59)
[2024-06-09 21:00] VITALS: BP 118/72
[2024-06-09] MEDS: QUEtiapine Fumarate 300 MG TABLET PO (21:00)
[2024-06-09] MEDS: Mirtazapine 15 MG TABLET PO (21:00)
[2024-06-09] MEDS: Prazosin HCL 1 MG CAPSULE 4 MG PO (21:00)
[2024-06-10] MEDS: methADONE HCl 20 MG/2 ML ORAL.CONC 100 MG PO (08:02)
[2024-06-10 08:47] VITALS: BP 121/74; PULSE 65; RESP 16; TEMP 36.4; O2SAT 99
[2024-06-10] MEDS: QUEtiapine Fumarate 25 MG TABLET 75 MG PO ×2 (09:23→14:26)
[2024-06-10] MEDS: clonazePAM 0.5 MG TABLET PO ×2 (09:24→21:30)
[2024-06-10] MEDS: busPIRone HCl 10 MG TABLET PO ×3 (09:24→21:30)
[2024-06-10] MEDS: Sertraline HCL 50 MG TABLET 150 MG PO (09:24)
[2024-06-10] MEDS: Lidocaine 4 % Patch ADH..PATCH 1 PATCH TRANSDERMA (09:24)
--- NOTE | 2024-06-10 09:32 | P.PNPSI_ITS ---
Subjective Subjective Date of Service: 06/10/24 Reason For Visit: mood disorder Interim History: Met with patient; discussed with team Patient reports AH feels worse today and she has this paranoid thought that other people are following her and want to hurt her. She was disappointed saying she was initially feeling better but then a peer yelled at her and the voice said that he was trying to kill her; she ran into a room and ever since she has been worried about this. She reports sleeping better with increase Seroquel and does not want to get off Seroquel; she even thinks that Seroquel p.r.n. can replace Thorazine p.r.n.. However auditory hallucinations continue to plague her and she said she thinks on Haldol the voices were diminished. 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 Mental Status Exam Mental Status Exam Patient Appearance: Appropriate Patient Orientation: Person, Place, Time and Situation Level of Consciousness: Alert Patient Behavior: Appropriate, Cooperative, Anxious, Isolative and Good Eye Contact Mood Description: Anxious Affect Description: Constricted Patient Cognition Impaired: No Ability to Follow Directions: Good Speech Pattern: Spontaneous Speech Memory Description: Intact Hallucinations: Auditory Delusions: Paranoid Ideation Perceptual Disturbances: Depersonalization and Derealization Thought Process: Rumination Thought Content: positive for Perseveration Depressive Symptoms: Increased Anxiety Judgement and Insight: impaired Diagnostics Vital Signs (24Hr): Vital Signs - 24 hr 06/09/24 20:00 06/09/24 21:00 06/10/24 08:47 Temperature 97.5 F 97.6 F Pulse Rate 98 65 Respiratory Rate 16 16 Blood Pressure 131/83 118/72 121/74 Pulse Oximetry 97 99 Oxygen Delivery Method Room Air Room Air BMI result Body Mass Index 36.2 Labs 05/22/24 08:24 Imaging Radiology Impressions: ITS Impressions Lumbar Spine X-Ray 06/07/24 15:00 IMPRESSION: Unremarkable examination. Electronically signed by: Cristy Mathis MD 06/08/2024 07:38 AM EDT Medications Medications Current Medications Acetaminophen (Acetaminophen 325 Mg Tablet) 650 mg PO Q6H PRN PRN Reason: Headache/Pain Mild Scale (1-3) Last Admin: 05/28/24 20:41 Dose: 650 mg Al Hydroxide/Mg Hydroxide (Magnesium Hydrox/Alum Hydrox 30 Ml Oral.Susp) 30 ml PO Q6H PRN PRN Reason: Heartburn/Nausea Albuterol Sulfate (Albuterol Sulfate 90 Mcg 8 Gm Inhaler) 2 puff INHALE Q6H PRN PRN Reason: wheezing Buspirone HCl (Buspirone Hcl 10 Mg Tablet) 10 mg PO TID [facility] Last Admin: 06/10/24 09:24 Dose: 10 mg Chlorpromazine HCl (Chlorpromazine Hcl 25 Mg Tablet) 50 mg PO Q4H PRN PRN Reason: Agitation Last Admin: 06/08/24 14:15 Dose: 50 mg Clonazepam (Clonazepam 0.5 Mg Tablet) 0.5 mg PO BID [facility] Last Admin: 06/10/24 09:24 Dose: 0.5 mg Cyclobenzaprine HCl (Cyclobenzaprine Hcl 10 Mg Tablet) 10 mg PO TID PRN PRN Reason: Back pain Last Admin: 06/08/24 14:15 Dose: 10 mg Doxepin HCl (Doxepin Hcl 10 Mg Capsule) 20 mg PO BEDTIME [facility] Last Admin: 06/09/24 20:59 Dose: 20 mg Hydroxyzine HCl (Hydroxyzine Hcl 25 Mg Tablet) 25 mg PO Q6H PRN PRN Reason: Anxiety Last Admin: 06/09/24 11:21 Dose: 25 mg Ibuprofen (Ibuprofen 800 Mg Tablet) 800 mg PO Q8H PRN PRN Reason: Back pain Last Admin: 06/06/24 21:35 Dose: 800 mg Lidocaine (Lidocaine 4 % Patch Adh..Patch) 1 patch TRANSDERMA DAILY [facility]; Protocol Last Admin: 06/10/24 09:24 Dose: 1 patch Magnesium Hydroxide (Milk Of Magnesia 30 Ml Oral.Susp) 30 ml PO DAILY PRN PRN Reason: Constipation Methadone HCl (Methadone Hcl 20 Mg/2 Ml Oral.Conc) 100 mg PO DAILY [facility] Last Admin: 06/10/24 08:02 Dose: 100 mg Mirtazapine (Mirtazapine 15 Mg Tablet) 15 mg PO BEDTIME [facility] Last Admin: 06/09/24 21:00 Dose: 15 mg Nicotine (Nicotine 21 Mg Patch.Td24) 21 mg TRANSDERMA DAILY PRN PRN Reason: nicotine cravings Last Admin: 06/09/24 08:27 Dose: 21 mg Nicotine Polacrilex (Nicotine Polacrilex Lozenge 4 Mg Lozenge) 4 mg BUCCAL Q2H PRN PRN Reason: Nicotine Cravings Pramipexole Dihydrochloride (Pramipexole Di-Hcl 0.125 Mg Tablet) 0.125 mg PO BEDTIME [facility] Last Admin: 06/09/24 20:59 Dose: 0.125 mg Prazosin HCl (Prazosin Hcl 1 Mg Capsule) 4 mg PO BEDTIME [facility]; Protocol Last Admin: 06/09/24 21:00 Dose: 4 mg Quetiapine Fumarate (Quetiapine Fumarate 50 Mg Tablet) 50 mg PO TID PRN PRN Reason: anxiety, agitation Last Admin: 05/30/24 20:38 Dose: 50 mg Quetiapine Fumarate (Quetiapine Fumarate 25 Mg Tablet) 75 mg PO BID@0900,1400 [facility] Last Admin: 06/10/24 09:23 Dose: 75 mg Quetiapine Fumarate (Quetiapine Fumarate 300 Mg Tablet) 300 mg PO BEDTIME [facility] Last Admin: 06/09/24 21:00 Dose: 300 mg Sertraline HCl (Sertraline Hcl 50 Mg Tablet) 150 mg PO DAILY [facility] Last Admin: 06/10/24 09:24 Dose: 150 mg Allergies Allergies Allergy/AdvReac Type Severity Reaction Status Date / Time Penicillins Allergy Intermediate HIVES Verified 03/14/24 15:53 Assessment & Plan Assessment & Plan (1) Schizoaffective disorder, bipolar type: Status: Acute Code(s): F25.0 - Schizoaffective disorder, bipolar type (2) Acute stress disorder: Status: Acute Code(s): F43.0 - Acute stress reaction (3) Opioid use disorder: Status: Acute Code(s): F11.90 - Opioid use, unspecified, uncomplicated Plan ASD, PTSD, Recurrent Major Depression, Polysubstance Use Disorder; also manic episodes; AH independent of mood Hospital course: 05/23: Continue current regimen and plans 05/24: Continue current regimen and plan 05/26: EKG as Seroquel prn has been added. 05/28: Ibuprofen prn for back pain Tolerating Trileptal trial 05/29 reviewed history and it seems that patient meets criteria for schizoaffective disorder, bipolar type. Patient reports that she has been quite depressed; she says her mood improved for 1 day and she had less anxiety, attended to ADLs but returned has been present for the past 2 days. She denies any SI. Patient says that the Seroquel and Zoloft were started at [facility]; she says that there she was still depressed but was overall feeling better enough to discharge. She said post discharge she had a manic episode and then got depressed. Reviewed history with patient: Patient reports being sober for 7 years, relapsed this past February when her mother (and then for 2 weeks) in past, while sober she reports history of manic episodes that can last anywhere from 3-7 days; episodes include episodes of talking fast, lots of activity...shopping sprees, buying excessive amount of scratch tickets...mind racing, having a lot of energy, not sleeping at all for 2-3 days and then very little for subsequent days... hanging around friends I should not be with (who shoplifters...) and which resulted in relapse.... Patient reports her friends notice these changes in her behavior. After such an episode, patient gets very depressed. She says this post manic depression is what resulted in this admission to [place]. Patient reports many past hospitalizations for depression often happen after a manic episode; she says some duration of manic episode happens about twice a month. Regarding history of depression, patient reports that medications have been partially helpful but depression remains. -Patient reports that her Mother had Schizoaffective disorder, bipolar type (Schizophrenia with manic episodes). Initially patient was reticent to talk about AVH; however she opened up and reports that daily she experiences AH telling her to pull her hair, to do things to hurt self; if her on people the voice will say that people are talking about her... She thinks that this is real and has a hard time ignoring it; she was however open to considering it might be her mind playing tricks on her because of mental illness. She reports presence of AH independent of mood. Discussed medication management for symptoms and reviewed risks/side-effects of Vraylar and pt willing to start (considered lithium; patient does not remember if past med trials were helpful) will dc Trileptal; just started 2 days ago; no effect yet discussed insomnia; she thinks Trazodone may work if 100mg; will schedule Trazodone and make Seroquel 200mg a prn for continued insomnia (goal to only be on 1 antipsychotic) 05/30 still AH, no changes but no side-effects; still depressed and hard to do ADL's but is forcing herself to shower agrees to increased vraylar; says slept well enough on trazodone; asks for extra PRN trazodone since waking at night. 05/31 Patient reports that mood is better today. She was proud of herself that she went to a group and showered yesterday. She says that auditory hallucinations are the same but is grateful for abating depression. -continue current Vraylar 3 mg; was just started on this dose and hopefully AH will diminish as well. 06/02: DC Trazodone Remeron 15 mg HS Buspirone 10 mg tid Seroquel 200 mg HS 06/04: Increase daytime Seroquel to 75 mg 0900,1400. 06/05: Klonopin 0.5 mg bid 06/08: Pt will use prn Seroquel/Chlorpromazine to assist with sleep as needed. 06/09 Reports that mood is overall better and patient does appear brighter. Auditory hallucinations remain. She said they are not as loud but they are still bothersome and hard to ignore. She agreed to increase Seroquel at bedtime to 300 mg. However she says she has been on Seroquel up to 800 mg and yet Voices remained. 06/10 Patient reports AH feels worse today and she has this paranoid thought that other people are following her and want to hurt her. She was disappointed saying she was initially feeling better but then a peer yelled at her and the voice said that he was trying to kill her; she ran into a room and ever since she has been worried about this. She reports sleeping better with increase Seroquel and does not want to get off Seroquel; she even thinks that Seroquel p.r.n. can replace Thorazine p.r.n.. However auditory hallucinations continue to plague her and she said she thinks on Haldol the voices were diminished. 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 Plan: CV Q 15 minute checks START Haldol 2.5 mg b.i.d. for continuing AH Continue Seroquel 300 mg q.h.s; DC thorazine prn; pt says she'll use seroquel prn instead Continue Zoloft 150 mg; recently titrated Continue doxepin Continue prazosin Discontinue Vraylar Discontinue Trileptal; just started 2 days ago and no effect yet; replacing with Vraylar History of Med trials: Seroquel Abigrant Risperdone Depakote Patient educated on: diagnosis and medication risk/benefits Informed Consent: understands Reason for continued inpatient stay Substantial Risk for: rapid decompensation Time Spent With Patient Time: Total time managing care of this patient today ____ minutes.
[2024-06-10] MEDS: Cyclobenzaprine HCl 10 MG TABLET PO (09:53)
[2024-06-10] MEDS: Nicotine 21 MG PATCH.TD24 TRANSDERMA (09:54)
[2024-06-10] MEDS: hydrOXYzine HCL 25 MG TABLET PO (10:00)
[2024-06-10] MEDS: HaloperidoL 0.5 MG TABLET 2.5 MG PO ×2 (14:22→21:30)
[2024-06-10 20:00] VITALS: BP 126/72; PULSE 66; RESP 16; TEMP 36.9; O2SAT 99
[2024-06-10 21:30] VITALS: BP 126/66
[2024-06-10] MEDS: QUEtiapine Fumarate 300 MG TABLET PO (21:30)
[2024-06-10] MEDS: Pramipexole Di-HCL 0.125 MG TABLET PO (21:30)
[2024-06-10] MEDS: Doxepin HCl 10 MG CAPSULE 20 MG PO (21:30)
[2024-06-10] MEDS: Mirtazapine 15 MG TABLET PO (21:30)
[2024-06-10] MEDS: Prazosin HCL 1 MG CAPSULE 4 MG PO (21:30)
[2024-06-11 07:00] VITALS: BMI 38.5
[2024-06-11] MEDS: methADONE HCl 20 MG/2 ML ORAL.CONC 100 MG PO (07:48)
[2024-06-11 08:40] VITALS: BP 119/68; PULSE 67; RESP 16; TEMP 36.4; O2SAT 98
[2024-06-11] MEDS: Sertraline HCL 50 MG TABLET 150 MG PO (09:00)
[2024-06-11] MEDS: HaloperidoL 5 MG TABLET 2.5 MG PO (09:00)
[2024-06-11] MEDS: QUEtiapine Fumarate 25 MG TABLET 75 MG PO ×2 (09:00→13:49)
[2024-06-11] MEDS: busPIRone HCl 10 MG TABLET PO ×3 (09:00→20:18)
[2024-06-11] MEDS: clonazePAM 0.5 MG TABLET PO ×3 (09:00→20:18)
[2024-06-11] MEDS: Nicotine 21 MG PATCH.TD24 TRANSDERMA (09:18)
[2024-06-11] MEDS: hydrOXYzine HCL 25 MG TABLET PO (10:46)
--- NOTE | 2024-06-11 12:30 | HO.PSYCHPN ---
Subjective Subjective Date of Service: 06/11/24 Reason For Visit: mood disorder Subjective Notes: Conditional Voluntary Healthcare Proxy: No Guardianship: No Medical Problems Affecting Mental Status: No Interim History: Voices are back I don't like Haldol, can we put the Chlorpromazine back? Evaluated recent med changes and finds that she is going back with increase in sx. Review of regime, changes to be made. Attending groups-able to remain for the session. Team reports she is working in group. Medication Compliance: Yes Side effects from medications: Yes Attending Groups: Yes Review of Systems Medical Review of Systems: unchanged Review of Systems Review of Systems Yes all other systems are reviewed and are negative Mental Status Exam Mental Status Exam Patient Appearance: Appropriate Patient Orientation: Person, Place, Time and Situation Level of Consciousness: Alert Patient Behavior: Talkative, Good Eye Contact and Crying Mood Description: Depressed and Anxious Affect Description: Flat Patient Cognition Impaired: No Ability to Follow Directions: Good Speech Pattern: Spontaneous Speech Memory Description: Intact Hallucinations: Auditory Delusions: Present Thought Process: Distracted and Rumination Thought Content: positive for Perseveration Judgement: Fair Diagnostics Vital Signs (24Hr): Vital Signs - 24 hr 06/10/24 20:00 06/10/24 21:30 06/11/24 08:40 Temperature 98.4 F 97.6 F Pulse Rate 66 67 Respiratory Rate 16 16 Blood Pressure 126/72 126/66 119/68 Pulse Oximetry 99 98 Oxygen Delivery Method Room Air Room Air BMI result Body Mass Index 38.5 Labs 05/22/24 08:24 Imaging Radiology Impressions: ITS Impressions Lumbar Spine X-Ray 06/07/24 15:00 IMPRESSION: Unremarkable examination. Electronically signed by: Cristy Mathis MD 06/08/2024 07:38 AM EDT Medications Medications Current Medications Acetaminophen (Acetaminophen 325 Mg Tablet) 650 mg PO Q6H PRN PRN Reason: Headache/Pain Mild Scale (1-3) Last Admin: 05/28/24 20:41 Dose: 650 mg Al Hydroxide/Mg Hydroxide (Magnesium Hydrox/Alum Hydrox 30 Ml Oral.Susp) 30 ml PO Q6H PRN PRN Reason: Heartburn/Nausea Albuterol Sulfate (Albuterol Sulfate 90 Mcg 8 Gm Inhaler) 2 puff INHALE Q6H PRN PRN Reason: wheezing Buspirone HCl (Buspirone Hcl 10 Mg Tablet) 10 mg PO TID [facility] Last Admin: 06/11/24 09:00 Dose: 10 mg Clonazepam (Clonazepam 0.5 Mg Tablet) 0.5 mg PO BID [facility] Last Admin: 06/11/24 09:00 Dose: 0.5 mg Cyclobenzaprine HCl (Cyclobenzaprine Hcl 10 Mg Tablet) 10 mg PO TID PRN PRN Reason: Back pain Last Admin: 06/10/24 09:53 Dose: 10 mg Doxepin HCl (Doxepin Hcl 10 Mg Capsule) 20 mg PO BEDTIME [facility] Last Admin: 06/10/24 21:30 Dose: 20 mg Haloperidol (Haloperidol 5 Mg Tablet) 2.5 mg PO BID [facility] Last Admin: 06/11/24 09:00 Dose: 2.5 mg Hydroxyzine HCl (Hydroxyzine Hcl 25 Mg Tablet) 25 mg PO Q6H PRN PRN Reason: Anxiety Last Admin: 06/11/24 10:46 Dose: 25 mg Ibuprofen (Ibuprofen 800 Mg Tablet) 800 mg PO Q8H PRN PRN Reason: Back pain Last Admin: 06/06/24 21:35 Dose: 800 mg Lidocaine (Lidocaine 4 % Patch Adh..Patch) 1 patch TRANSDERMA DAILY [facility]; Protocol Last Admin: 06/11/24 09:00 Dose: Not Given Magnesium Hydroxide (Milk Of Magnesia 30 Ml Oral.Susp) 30 ml PO DAILY PRN PRN Reason: Constipation Methadone HCl (Methadone Hcl 20 Mg/2 Ml Oral.Conc) 100 mg PO DAILY [facility] Last Admin: 06/11/24 07:48 Dose: 100 mg Mirtazapine (Mirtazapine 15 Mg Tablet) 15 mg PO BEDTIME [facility] Last Admin: 06/10/24 21:30 Dose: 15 mg Nicotine (Nicotine 21 Mg Patch.Td24) 21 mg TRANSDERMA DAILY PRN PRN Reason: nicotine cravings Last Admin: 06/11/24 09:18 Dose: 21 mg Nicotine Polacrilex (Nicotine Polacrilex Lozenge 4 Mg Lozenge) 4 mg BUCCAL Q2H PRN PRN Reason: Nicotine Cravings Pramipexole Dihydrochloride (Pramipexole Di-Hcl 0.125 Mg Tablet) 0.125 mg PO BEDTIME [facility] Last Admin: 06/10/24 21:30 Dose: 0.125 mg Prazosin HCl (Prazosin Hcl 1 Mg Capsule) 4 mg PO BEDTIME [facility]; Protocol Last Admin: 06/10/24 21:30 Dose: 4 mg Quetiapine Fumarate (Quetiapine Fumarate 50 Mg Tablet) 50 mg PO TID PRN PRN Reason: anxiety, agitation Last Admin: 05/30/24 20:38 Dose: 50 mg Quetiapine Fumarate (Quetiapine Fumarate 25 Mg Tablet) 75 mg PO BID@0900,1400 [facility] Last Admin: 06/11/24 09:00 Dose: 75 mg Quetiapine Fumarate (Quetiapine Fumarate 300 Mg Tablet) 300 mg PO BEDTIME [facility] Last Admin: 06/10/24 21:30 Dose: 300 mg Sertraline HCl (Sertraline Hcl 50 Mg Tablet) 150 mg PO DAILY [facility] Last Admin: 06/11/24 09:00 Dose: 150 mg Allergies Allergies Allergy/AdvReac Type Severity Reaction Status Date / Time Penicillins Allergy Intermediate HIVES Verified 03/14/24 15:53 Assessment & Plan Assessment & Plan (1) Schizoaffective disorder, bipolar type: Status: Acute Code(s): F25.0 - Schizoaffective disorder, bipolar type (2) Acute stress disorder: Status: Acute Code(s): F43.0 - Acute stress reaction (3) Opioid use disorder: Status: Acute Code(s): F11.90 - Opioid use, unspecified, uncomplicated Plan ASD, PTSD, Recurrent Major Depression, Polysubstance Use Disorder; also manic episodes; AH independent of mood Hospital course: 05/23: Continue current regimen and plans 05/24: Continue current regimen and plan 05/26: EKG as Seroquel prn has been added. 05/28: Ibuprofen prn for back pain Tolerating Trileptal trial 05/29 reviewed history and it seems that patient meets criteria for schizoaffective disorder, bipolar type. Patient reports that she has been quite depressed; she says her mood improved for 1 day and she had less anxiety, attended to ADLs but returned has been present for the past 2 days. She denies any SI. Patient says that the Seroquel and Zoloft were started at [facility]; she says that there she was still depressed but was overall feeling better enough to discharge. She said post discharge she had a manic episode and then got depressed. Reviewed history with patient: Patient reports being sober for 7 years, relapsed this past May when her mother (and then for 2 weeks) in past, while sober she reports history of manic episodes that can last anywhere from 3-7 days; episodes include episodes of talking fast, lots of activity...shopping sprees, buying excessive amount of scratch tickets...mind racing, having a lot of energy, not sleeping at all for 2-3 days and then very little for subsequent days... hanging around friends I should not be with (who shoplifters...) and which resulted in relapse.... Patient reports her friends notice these changes in her behavior. After such an episode, patient gets very depressed. She says this post manic depression is what resulted in this admission to [place]. Patient reports many past hospitalizations for depression often happen after a manic episode; she says some duration of manic episode happens about twice a month. Regarding history of depression, patient reports that medications have been partially helpful but depression remains. -Patient reports that her Mother had Schizoaffective disorder, bipolar type (Schizophrenia with manic episodes). Initially patient was reticent to talk about AVH; however she opened up and reports that daily she experiences AH telling her to pull her hair, to do things to hurt self; if her on people the voice will say that people are talking about her... She thinks that this is real and has a hard time ignoring it; she was however open to considering it might be her mind playing tricks on her because of mental illness. She reports presence of AH independent of mood. Discussed medication management for symptoms and reviewed risks/side-effects of Vraylar and pt willing to start (considered lithium; patient does not remember if past med trials were helpful) will dc Trileptal; just started 2 days ago; no effect yet discussed insomnia; she thinks Trazodone may work if 100mg; will schedule Trazodone and make Seroquel 200mg a prn for continued insomnia (goal to only be on 1 antipsychotic) 05/30 still AH, no changes but no side-effects; still depressed and hard to do ADL's but is forcing herself to shower agrees to increased vraylar; says slept well enough on trazodone; asks for extra PRN trazodone since waking at night. 05/31 Patient reports that mood is better today. She was proud of herself that she went to a group and showered yesterday. She says that auditory hallucinations are the same but is grateful for abating depression. -continue current Vraylar 3 mg; was just started on this dose and hopefully AH will diminish as well. 06/02: DC Trazodone Remeron 15 mg HS Buspirone 10 mg tid Seroquel 200 mg HS 06/04: Increase daytime Seroquel to 75 mg 0900,1400. 06/05: Klonopin 0.5 mg bid 06/08: Pt will use prn Seroquel/Chlorpromazine to assist with sleep as needed. 06/09 Reports that mood is overall better and patient does appear brighter. Auditory hallucinations remain. She said they are not as loud but they are still bothersome and hard to ignore. She agreed to increase Seroquel at bedtime to 300 mg. However she says she has been on Seroquel up to 800 mg and yet Voices remained. 06/10 Patient reports AH feels worse today and she has this paranoid thought that other people are following her and want to hurt her. She was disappointed saying she was initially feeling better but then a peer yelled at her and the voice said that he was trying to kill her; she ran into a room and ever since she has been worried about this. She reports sleeping better with increase Seroquel and does not want to get off Seroquel; she even thinks that Seroquel p.r.n. can replace Thorazine p.r.n.. However auditory hallucinations continue to plague her and she said she thinks on Haldol the voices were diminished. Renal Case Manager reviewed risks/side effects of antipsychotics and especially being on 2 antipsychotics, which patient understands but says she wants to try because of how problematic the voices are. 06/11 DC Haldol Tolerating 06/09 Seroquel HS increase Chlorpromazine 50 mg tid prn Increase Klonopin to 0.5 mg tid Plan: CV Q 15 minute checks START Haldol 2.5 mg b.i.d. for continuing AH Continue Seroquel 300 mg q.h.s; DC thorazine prn; pt says she'll use seroquel prn instead Continue Zoloft 150 mg; recently titrated Continue doxepin Continue prazosin Discontinue Vraylar Discontinue Trileptal; just started 2 days ago and no effect yet; replacing with Vraylar History of Med trials: Seroquel Ayde Peterson Informed Consent: understands Reason for continued inpatient stay Substantial Risk for: rapid decompensation Time Spent With Patient Time: Total time managing care of this patient today ____ minutes.
[2024-06-11] MEDS: Lidocaine 4 % Patch ADH..PATCH 1 PATCH TRANSDERMA (13:50)
[2024-06-11 20:00] VITALS: BP 121/60; PULSE 87; TEMP 36.3; O2SAT 98
[2024-06-11] MEDS: Prazosin HCL 1 MG CAPSULE 4 MG PO (20:17)
[2024-06-11] MEDS: Doxepin HCl 10 MG CAPSULE 20 MG PO (20:18)
[2024-06-11] MEDS: QUEtiapine Fumarate 300 MG TABLET PO (20:18)
[2024-06-11] MEDS: Cyclobenzaprine HCl 10 MG TABLET PO (20:18)
[2024-06-11] MEDS: Mirtazapine 15 MG TABLET PO (20:18)
[2024-06-11] MEDS: Pramipexole Di-HCL 0.125 MG TABLET PO (20:18)
[2024-06-12] MEDS: methADONE HCl 20 MG/2 ML ORAL.CONC 100 MG PO (07:59)
[2024-06-12 08:00] VITALS: BP 109/54; PULSE 72; RESP 16; TEMP 36.4; O2SAT 98
[2024-06-12] MEDS: Sertraline HCL 50 MG TABLET 150 MG PO (10:27)
[2024-06-12] MEDS: clonazePAM 0.5 MG TABLET PO ×3 (10:28→21:18)
[2024-06-12] MEDS: chlorproMAZINE HCl 25 MG TABLET 50 MG PO ×2 (10:28→15:12)
[2024-06-12] MEDS: busPIRone HCl 10 MG TABLET PO ×3 (10:28→21:18)
[2024-06-12] MEDS: QUEtiapine Fumarate 25 MG TABLET 75 MG PO ×2 (10:28→15:12)
[2024-06-12] MEDS: Nicotine 21 MG PATCH.TD24 TRANSDERMA (10:29)
--- NOTE | 2024-06-12 10:30 | HO.PSYCHPN ---
Subjective Subjective Date of Service: 06/12/24 Reason For Visit: mood disorder Subjective Notes: Conditional Voluntary Healthcare Proxy: No Guardianship: No Medical Problems Affecting Mental Status: No Interim History: Pt attending groups, feeling better she reports, however with very poor sleep last night with PIA. Reports she slept after 10pm was awake 2:30am and unable to return to sleep. Medication Compliance: Yes Side effects from medications: No Attending Groups: Yes Review of Systems Acute medical concerns: No Medical Review of Systems: unchanged Review of Systems Review of Systems Yes all other systems are reviewed and are negative Mental Status Exam Mental Status Exam Patient Appearance: Appropriate Patient Orientation: Person, Place, Time and Situation Level of Consciousness: Alert Patient Behavior: Talkative, Good Eye Contact and Crying Mood Description: Depressed and Anxious Affect Description: Flat Patient Cognition Impaired: No Ability to Follow Directions: Good Speech Pattern: Spontaneous Speech Memory Description: Intact Hallucinations: Auditory Delusions: Present Thought Process: Distracted and Rumination Thought Content: positive for Perseveration Judgement: Fair Diagnostics Vital Signs (24Hr): Vital Signs - 24 hr 06/11/24 20:00 Temperature 97.3 F Pulse Rate 87 Blood Pressure 121/60 Pulse Oximetry 98 Oxygen Delivery Method Room Air BMI result Body Mass Index 38.5 Labs 05/22/24 08:24 Imaging Radiology Impressions: ITS Impressions Lumbar Spine X-Ray 06/07/24 15:00 IMPRESSION: Unremarkable examination. Electronically signed by: Cristy Mathis MD 06/08/2024 07:38 AM EDT RP Medications Medications Current Medications Acetaminophen (Acetaminophen 325 Mg Tablet) 650 mg PO Q6H PRN PRN Reason: Headache/Pain Mild Scale (1-3) Last Admin: 05/28/24 20:41 Dose: 650 mg Al Hydroxide/Mg Hydroxide (Magnesium Hydrox/Alum Hydrox 30 Ml Oral.Susp) 30 ml PO Q6H PRN PRN Reason: Heartburn/Nausea Albuterol Sulfate (Albuterol Sulfate 90 Mcg 8 Gm Inhaler) 2 puff INHALE Q6H PRN PRN Reason: wheezing Buspirone HCl (Buspirone Hcl 10 Mg Tablet) 10 mg PO TID [facility] Last Admin: 06/11/24 20:18 Dose: 10 mg Chlorpromazine HCl (Chlorpromazine Hcl 25 Mg Tablet) 50 mg PO TID PRN PRN Reason: agitation Clonazepam (Clonazepam 0.5 Mg Tablet) 0.5 mg PO TID IJEOMA Last Admin: 06/11/24 20:18 Dose: 0.5 mg Cyclobenzaprine HCl (Cyclobenzaprine Hcl 10 Mg Tablet) 10 mg PO TID PRN PRN Reason: Back pain Last Admin: 06/11/24 20:18 Dose: 10 mg Doxepin HCl (Doxepin Hcl 10 Mg Capsule) 20 mg PO BEDTIME IJEOMA Last Admin: 06/11/24 20:18 Dose: 20 mg Hydroxyzine HCl (Hydroxyzine Hcl 25 Mg Tablet) 25 mg PO Q6H PRN PRN Reason: Anxiety Last Admin: 06/11/24 10:46 Dose: 25 mg Ibuprofen (Ibuprofen 800 Mg Tablet) 800 mg PO Q8H PRN PRN Reason: Back pain Last Admin: 06/06/24 21:35 Dose: 800 mg Lidocaine (Lidocaine 4 % Patch Adh..Patch) 1 patch TRANSDERMA DAILY IJEOMA; Protocol Last Admin: 06/11/24 13:50 Dose: 1 patch Magnesium Hydroxide (Milk Of Magnesia 30 Ml Oral.Susp) 30 ml PO DAILY PRN PRN Reason: Constipation Methadone HCl (Methadone Hcl 20 Mg/2 Ml Oral.Conc) 100 mg PO DAILY [facility] Last Admin: 06/12/24 07:59 Dose: 100 mg Mirtazapine (Mirtazapine 15 Mg Tablet) 15 mg PO BEDTIME IJEOMA Last Admin: 06/11/24 20:18 Dose: 15 mg Nicotine (Nicotine 21 Mg Patch.Td24) 21 mg TRANSDERMA DAILY PRN PRN Reason: nicotine cravings Last Admin: 06/11/24 09:18 Dose: 21 mg Nicotine Polacrilex (Nicotine Polacrilex Lozenge 4 Mg Lozenge) 4 mg BUCCAL Q2H PRN PRN Reason: Nicotine Cravings Pramipexole Dihydrochloride (Pramipexole Di-Hcl 0.125 Mg Tablet) 0.125 mg PO BEDTIME IJEOMA Last Admin: 06/11/24 20:18 Dose: 0.125 mg Prazosin HCl (Prazosin Hcl 1 Mg Capsule) 4 mg PO BEDTIME IJEOMA; Protocol Last Admin: 06/11/24 20:17 Dose: 4 mg Quetiapine Fumarate (Quetiapine Fumarate 50 Mg Tablet) 50 mg PO TID PRN PRN Reason: anxiety, agitation Last Admin: 05/30/24 20:38 Dose: 50 mg Quetiapine Fumarate (Quetiapine Fumarate 25 Mg Tablet) 75 mg PO BID@0900,1400 [facility] Last Admin: 06/11/24 13:49 Dose: 75 mg Quetiapine Fumarate (Quetiapine Fumarate 300 Mg Tablet) 300 mg PO BEDTIME [facility] Last Admin: 06/11/24 20:18 Dose: 300 mg Sertraline HCl (Sertraline Hcl 50 Mg Tablet) 150 mg PO DAILY [facility] Last Admin: 06/11/24 09:00 Dose: 150 mg Allergies Allergies Allergy/AdvReac Type Severity Reaction Status Date / Time Penicillins Allergy Intermediate HIVES Verified 03/14/24 15:53 Assessment & Plan Assessment & Plan (1) Schizoaffective disorder, bipolar type: Status: Acute Code(s): F25.0 - Schizoaffective disorder, bipolar type (2) Acute stress disorder: Status: Acute Code(s): F43.0 - Acute stress reaction (3) Opioid use disorder: Status: Acute Code(s): F11.90 - Opioid use, unspecified, uncomplicated Plan ASD, PTSD, Recurrent Major Depression, Polysubstance Use Disorder; also manic episodes; AH independent of mood Hospital course: 05/23: Continue current regimen and plans 05/24: Continue current regimen and plan 05/26: EKG as Seroquel prn has been added. 05/28: Ibuprofen prn for back pain Tolerating Trileptal trial 05/29 reviewed history and it seems that patient meets criteria for schizoaffective disorder, bipolar type. Patient reports that she has been quite depressed; she says her mood improved for 1 day and she had less anxiety, attended to ADLs but returned has been present for the past 2 days. She denies any SI. Patient says that the Seroquel and Zoloft were started at [facility]; she says that there she was still depressed but was overall feeling better enough to discharge. She said post discharge she had a manic episode and then got depressed. Reviewed history with patient: Patient reports being sober for 7 years, relapsed this past February when her mother (and then for 2 weeks) in past, while sober she reports history of manic episodes that can last anywhere from 3-7 days; episodes include episodes of talking fast, lots of activity...shopping sprees, buying excessive amount of scratch tickets...mind racing, having a lot of energy, not sleeping at all for 2-3 days and then very little for subsequent days... hanging around friends I should not be with (who shoplifters...) and which resulted in relapse.... Patient reports her friends notice these changes in her behavior. After such an episode, patient gets very depressed. She says this post manic depression is what resulted in this admission to [place]. Patient reports many past hospitalizations for depression often happen after a manic episode; she says some duration of manic episode happens about twice a month. Regarding history of depression, patient reports that medications have been partially helpful but depression remains. -Patient reports that her Mother had Schizoaffective disorder, bipolar type (Schizophrenia with manic episodes). Initially patient was reticent to talk about AVH; however she opened up and reports that daily she experiences AH telling her to pull her hair, to do things to hurt self; if her on people the voice will say that people are talking about her... She thinks that this is real and has a hard time ignoring it; she was however open to considering it might be her mind playing tricks on her because of mental illness. She reports presence of AH independent of mood. Discussed medication management for symptoms and reviewed risks/side-effects of Vraylar and pt willing to start (considered lithium; patient does not remember if past med trials were helpful) will dc Trileptal; just started 2 days ago; no effect yet discussed insomnia; she thinks Trazodone may work if 100mg; will schedule Trazodone and make Seroquel 200mg a prn for continued insomnia (goal to only be on 1 antipsychotic) 05/30 still AH, no changes but no side-effects; still depressed and hard to do ADL's but is forcing herself to shower agrees to increased vraylar; says slept well enough on trazodone; asks for extra PRN trazodone since waking at night. 05/31 Patient reports that mood is better today. She was proud of herself that she went to a group and showered yesterday. She says that auditory hallucinations are the same but is grateful for abating depression. -continue current Vraylar 3 mg; was just started on this dose and hopefully AH will diminish as well. 06/02: DC Trazodone Remeron 15 mg HS Buspirone 10 mg tid Seroquel 200 mg HS 06/04: Increase daytime Seroquel to 75 mg 0900,1400. 06/05: Klonopin 0.5 mg bid 06/08: Pt will use prn Seroquel/Chlorpromazine to assist with sleep as needed. 06/09 Reports that mood is overall better and patient does appear brighter. Auditory hallucinations remain. She said they are not as loud but they are still bothersome and hard to ignore. She agreed to increase Seroquel at bedtime to 300 mg. However she says she has been on Seroquel up to 800 mg and yet Voices remained. 06/10 Patient reports AH feels worse today and she has this paranoid thought that other people are following her and want to hurt her. She was disappointed saying she was initially feeling better but then a peer yelled at her and the voice said that he was trying to kill her; she ran into a room and ever since she has been worried about this. She reports sleeping better with increase Seroquel and does not want to get off Seroquel; she even thinks that Seroquel p.r.n. can replace Thorazine p.r.n.. However auditory hallucinations continue to plague her and she said she thinks on Haldol the voices were diminished. 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 06/12: Inrease HS Seroquel to 350 mg HS Plan: CV Q 15 minute checks START Haldol 2.5 mg b.i.d. for continuing AH Continue Seroquel 300 mg q.h.s; DC thorazine prn; pt says she'll use seroquel prn instead Continue Zoloft 150 mg; recently titrated Continue doxepin Continue prazosin Discontinue Vraylar Discontinue Trileptal; just started 2 days ago and no effect yet; replacing with Vraylar History of Med trials: Seroquel Abilify Risperdone Depakote Reason for continued inpatient stay Substantial Risk for: rapid decompensation Time Spent With Patient Time: Total time managing care of this patient today ____ minutes.
[2024-06-12] MEDS: Lidocaine 4 % Patch ADH..PATCH 1 PATCH TRANSDERMA (10:32)
[2024-06-12] MEDS: Cyclobenzaprine HCl 10 MG TABLET PO ×2 (15:12→21:17)
[2024-06-12 20:00] VITALS: BP 115/76; PULSE 86; TEMP 36.4; O2SAT 97
[2024-06-12 21:16] VITALS: BP 115/76
[2024-06-12] MEDS: QUEtiapine Fumarate 50 MG TABLET 350 MG PO (21:16)
[2024-06-12] MEDS: Prazosin HCL 1 MG CAPSULE 4 MG PO (21:16)
[2024-06-12] MEDS: Pramipexole Di-HCL 0.125 MG TABLET PO (21:17)
[2024-06-12] MEDS: Doxepin HCl 10 MG CAPSULE 20 MG PO (21:17)
[2024-06-12] MEDS: Mirtazapine 15 MG TABLET PO (21:18)
[2024-06-13] MEDS: methADONE HCl 20 MG/2 ML ORAL.CONC 100 MG PO (07:50)
[2024-06-13 08:00] VITALS: BP 116/78; PULSE 70; RESP 16; TEMP 36.4; O2SAT 98
[2024-06-13] MEDS: Lidocaine 4 % Patch ADH..PATCH 1 PATCH TRANSDERMA (08:49)
[2024-06-13] MEDS: clonazePAM 0.5 MG TABLET PO ×3 (08:51→21:03)
[2024-06-13] MEDS: busPIRone HCl 10 MG TABLET PO ×3 (08:51→21:02)
[2024-06-13] MEDS: QUEtiapine Fumarate 25 MG TABLET 75 MG PO ×2 (08:51→14:29)
[2024-06-13] MEDS: Sertraline HCL 50 MG TABLET 150 MG PO (08:51)
[2024-06-13] MEDS: Nicotine 21 MG PATCH.TD24 TRANSDERMA (08:54)
--- NOTE | 2024-06-13 11:42 | HO.PSYCHPN ---
Subjective Subjective Date of Service: 06/13/24 Reason For Visit: mood disorder Subjective Notes: Conditional Voluntary Interim History: The nursing staff reported the patient had been slightly anxious compliant with treatment she complains of back pain and she took Flexeril with limited improvement. She has been pleasant and cooperative reports sporadic auditory hallucinations that comes and goes even though her affect is brighter. She slept 8 hours. On interview the patient denies new symptoms she denies side effects with the current treatment. Mental Status Exam Mental Status Exam Patient Appearance: Appropriate Patient Orientation: Person and Situation Level of Consciousness: Awake and Appropriate Patient Behavior: Guarded and Passive Mood Description: Calm Affect Description: Constricted Patient Cognition Impaired: Yes Ability to Follow Directions: Good Speech Pattern: Clear Hallucinations: Auditory Delusions: Not Present Thought Process: Distracted and Linear Thought Content: positive for Circumstantial Judgement: Fair Diagnostics Vital Signs (24Hr): Vital Signs - 24 hr 06/12/24 20:00 06/12/24 21:16 06/13/24 08:00 Temperature 97.5 F 97.6 F Pulse Rate 86 70 Respiratory Rate 16 Blood Pressure 115/76 115/76 116/78 Pulse Oximetry 97 98 Oxygen Delivery Method Room Air Room Air BMI result Body Mass Index 38.5 Labs 05/22/24 08:24 Imaging Radiology Impressions: ITS Impressions Lumbar Spine X-Ray 06/07/24 15:00 IMPRESSION: Unremarkable examination. Electronically signed by: Cristy Mathis MD 06/08/2024 07:38 AM EDT Medications Medications Current Medications Acetaminophen (Acetaminophen 325 Mg Tablet) 650 mg PO Q6H PRN PRN Reason: Headache/Pain Mild Scale (1-3) Last Admin: 05/28/24 20:41 Dose: 650 mg Al Hydroxide/Mg Hydroxide (Magnesium Hydrox/Alum Hydrox 30 Ml Oral.Susp) 30 ml PO Q6H PRN PRN Reason: Heartburn/Nausea Albuterol Sulfate (Albuterol Sulfate 90 Mcg 8 Gm Inhaler) 2 puff INHALE Q6H PRN PRN Reason: wheezing Buspirone HCl (Buspirone Hcl 10 Mg Tablet) 10 mg PO TID [facility] Last Admin: 06/13/24 08:51 Dose: 10 mg Chlorpromazine HCl (Chlorpromazine Hcl 25 Mg Tablet) 50 mg PO TID PRN PRN Reason: agitation Last Admin: 06/12/24 15:12 Dose: 50 mg Clonazepam (Clonazepam 0.5 Mg Tablet) 0.5 mg PO TID IJEOMA Last Admin: 06/13/24 08:51 Dose: 0.5 mg Cyclobenzaprine HCl (Cyclobenzaprine Hcl 10 Mg Tablet) 10 mg PO TID PRN PRN Reason: Back pain Last Admin: 06/12/24 21:17 Dose: 10 mg Doxepin HCl (Doxepin Hcl 10 Mg Capsule) 20 mg PO BEDTIME IJEOMA Last Admin: 06/12/24 21:17 Dose: 20 mg Hydroxyzine HCl (Hydroxyzine Hcl 25 Mg Tablet) 25 mg PO Q6H PRN PRN Reason: Anxiety Last Admin: 06/11/24 10:46 Dose: 25 mg Ibuprofen (Ibuprofen 800 Mg Tablet) 800 mg PO Q8H PRN PRN Reason: Back pain Last Admin: 06/06/24 21:35 Dose: 800 mg Lidocaine (Lidocaine 4 % Patch Adh..Patch) 1 patch TRANSDERMA DAILY IJEOMA; Protocol Last Admin: 06/13/24 08:49 Dose: 1 patch Magnesium Hydroxide (Milk Of Magnesia 30 Ml Oral.Susp) 30 ml PO DAILY PRN PRN Reason: Constipation Methadone HCl (Methadone Hcl 20 Mg/2 Ml Oral.Conc) 100 mg PO DAILY IJEOMA Last Admin: 06/13/24 07:50 Dose: 100 mg Mirtazapine (Mirtazapine 15 Mg Tablet) 15 mg PO BEDTIME IJEOMA Last Admin: 06/12/24 21:18 Dose: 15 mg Nicotine (Nicotine 21 Mg Patch.Td24) 21 mg TRANSDERMA DAILY PRN PRN Reason: nicotine cravings Last Admin: 06/13/24 08:54 Dose: 21 mg Nicotine Polacrilex (Nicotine Polacrilex Lozenge 4 Mg Lozenge) 4 mg BUCCAL Q2H PRN PRN Reason: Nicotine Cravings Pramipexole Dihydrochloride (Pramipexole Di-Hcl 0.125 Mg Tablet) 0.125 mg PO BEDTIME IJEOMA Last Admin: 06/12/24 21:17 Dose: 0.125 mg Prazosin HCl (Prazosin Hcl 1 Mg Capsule) 4 mg PO BEDTIME IJEOMA; Protocol Last Admin: 06/12/24 21:16 Dose: 4 mg Quetiapine Fumarate (Quetiapine Fumarate 50 Mg Tablet) 50 mg PO TID PRN PRN Reason: anxiety, agitation Last Admin: 05/30/24 20:38 Dose: 50 mg Quetiapine Fumarate (Quetiapine Fumarate 25 Mg Tablet) 75 mg PO BID@0900,1400 [facility] Last Admin: 06/13/24 08:51 Dose: 75 mg Quetiapine Fumarate (Quetiapine Fumarate 50 Mg Tablet) 350 mg PO BEDTIME [facility] Last Admin: 06/12/24 21:16 Dose: 350 mg Sertraline HCl (Sertraline Hcl 50 Mg Tablet) 150 mg PO DAILY [facility] Last Admin: 06/13/24 08:51 Dose: 150 mg Allergies Allergies Allergy/AdvReac Type Severity Reaction Status Date / Time Penicillins Allergy Intermediate HIVES Verified 03/14/24 15:53 Assessment & Plan Assessment & Plan (1) Schizoaffective disorder, bipolar type: Status: Acute Code(s): F25.0 - Schizoaffective disorder, bipolar type (2) Acute stress disorder: Status: Acute Code(s): F43.0 - Acute stress reaction (3) Opioid use disorder: Status: Acute Code(s): F11.90 - Opioid use, unspecified, uncomplicated Plan ASD, PTSD, Recurrent Major Depression, Polysubstance Use Disorder; also manic episodes; AH independent of mood Hospital course: 05/23: Continue current regimen and plans 05/24: Continue current regimen and plan 05/26: EKG as Seroquel prn has been added. 05/28: Ibuprofen prn for back pain Tolerating Trileptal trial 05/29 reviewed history and it seems that patient meets criteria for schizoaffective disorder, bipolar type. Patient reports that she has been quite depressed; she says her mood improved for 1 day and she had less anxiety, attended to ADLs but returned has been present for the past 2 days. She denies any SI. Patient says that the Seroquel and Zoloft were started at [facility]; she says that there she was still depressed but was overall feeling better enough to discharge. She said post discharge she had a manic episode and then got depressed. Reviewed history with patient: Patient reports being sober for 7 years, relapsed this past February when her mother (and then for 2 weeks) in past, while sober she reports history of manic episodes that can last anywhere from 3-7 days; episodes include episodes of talking fast, lots of activity...shopping sprees, buying excessive amount of scratch tickets...mind racing, having a lot of energy, not sleeping at all for 2-3 days and then very little for subsequent days... hanging around friends I should not be with (who shoplifters...) and which resulted in relapse.... Patient reports her friends notice these changes in her behavior. After such an episode, patient gets very depressed. She says this post manic depression is what resulted in this admission to [place]. Patient reports many past hospitalizations for depression often happen after a manic episode; she says some duration of manic episode happens about twice a month. Regarding history of depression, patient reports that medications have been partially helpful but depression remains. -Patient reports that her Mother had Schizoaffective disorder, bipolar type (Schizophrenia with manic episodes). Initially patient was reticent to talk about AVH; however she opened up and reports that daily she experiences AH telling her to pull her hair, to do things to hurt self; if her on people the voice will say that people are talking about her... She thinks that this is real and has a hard time ignoring it; she was however open to considering it might be her mind playing tricks on her because of mental illness. She reports presence of AH independent of mood. Discussed medication management for symptoms and reviewed risks/side-effects of Vraylar and pt willing to start (considered lithium; patient does not remember if past med trials were helpful) will dc Trileptal; just started 2 days ago; no effect yet discussed insomnia; she thinks Trazodone may work if 100mg; will schedule Trazodone and make Seroquel 200mg a prn for continued insomnia (goal to only be on 1 antipsychotic) 05/30 still AH, no changes but no side-effects; still depressed and hard to do ADL's but is forcing herself to shower agrees to increased vraylar; says slept well enough on trazodone; asks for extra PRN trazodone since waking at night. 05/31 Patient reports that mood is better today. She was proud of herself that she went to a group and showered yesterday. She says that auditory hallucinations are the same but is grateful for abating depression. -continue current Vraylar 3 mg; was just started on this dose and hopefully AH will diminish as well. 06/02: DC Trazodone Remeron 15 mg HS Buspirone 10 mg tid Seroquel 200 mg HS 06/04: Increase daytime Seroquel to 75 mg 0900,1400. 06/05: Klonopin 0.5 mg bid 06/08: Pt will use prn Seroquel/Chlorpromazine to assist with sleep as needed. 06/09 Reports that mood is overall better and patient does appear brighter. Auditory hallucinations remain. She said they are not as loud but they are still bothersome and hard to ignore. She agreed to increase Seroquel at bedtime to 300 mg. However she says she has been on Seroquel up to 800 mg and yet Voices remained. 06/10 Patient reports AH feels worse today and she has this paranoid thought that other people are following her and want to hurt her. She was disappointed saying she was initially feeling better but then a peer yelled at her and the voice said that he was trying to kill her; she ran into a room and ever since she has been worried about this. She reports sleeping better with increase Seroquel and does not want to get off Seroquel; she even thinks that Seroquel p.r.n. can replace Thorazine p.r.n.. However auditory hallucinations continue to plague her and she said she thinks on Haldol the voices were diminished. 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 06/12: Inrease HS Seroquel to 350 mg HS 06/13 keep same treatment Plan: CV Q 15 minute checks START Haldol 2.5 mg b.i.d. for continuing AH Continue Seroquel 300 mg q.h.s; DC thorazine prn; pt says she'll use seroquel prn instead Continue Zoloft 150 mg; recently titrated Continue doxepin Continue prazosin Discontinue Vraylar Discontinue Trileptal; just started 2 days ago and no effect yet; replacing with Vraylar History of Med trials: Seroshamika Peterson Reason for continued inpatient stay Substantial Risk for: inability to function, rapid decompensation and med/psych decompensation Time Spent With Patient Time: Total time managing care of this patient today _20___ minutes.
[2024-06-13] MEDS: Cyclobenzaprine HCl 10 MG TABLET PO (14:29)
[2024-06-13 19:49] VITALS: BP 133/72; PULSE 83; RESP 16; TEMP 36.8; O2SAT 99
[2024-06-13] MEDS: Pramipexole Di-HCL 0.125 MG TABLET PO (21:02)
[2024-06-13] MEDS: QUEtiapine Fumarate 50 MG TABLET 350 MG PO (21:02)
[2024-06-13] MEDS: Mirtazapine 15 MG TABLET PO (21:02)
[2024-06-13] MEDS: Doxepin HCl 10 MG CAPSULE 20 MG PO (21:03)
[2024-06-13] MEDS: Prazosin HCL 1 MG CAPSULE 4 MG PO (21:03)
[2024-06-14] MEDS: methADONE HCl 20 MG/2 ML ORAL.CONC 100 MG PO (07:39)
[2024-06-14 08:00] VITALS: BP 106/58; PULSE 87; RESP 16; TEMP 36.4; O2SAT 96
[2024-06-14] MEDS: Lidocaine 4 % Patch ADH..PATCH 1 PATCH TRANSDERMA (08:42)
[2024-06-14] MEDS: Nicotine 21 MG PATCH.TD24 TRANSDERMA (08:44)
[2024-06-14] MEDS: clonazePAM 0.5 MG TABLET PO ×3 (08:45→20:08)
[2024-06-14] MEDS: Cyclobenzaprine HCl 10 MG TABLET PO ×2 (08:45→20:09)
[2024-06-14] MEDS: busPIRone HCl 10 MG TABLET PO ×3 (08:45→20:08)
[2024-06-14] MEDS: Sertraline HCL 50 MG TABLET 150 MG PO (08:46)
[2024-06-14] MEDS: QUEtiapine Fumarate 25 MG TABLET 75 MG PO ×2 (08:46→14:42)
--- NOTE | 2024-06-14 13:35 | P.PNPSI_ITS ---
Subjective Subjective Date of Service: 06/14/24 Reason For Visit: mood disorder Subjective Notes: Conditional Voluntary Interim History: The nursing staff reported the patient looks better, she had been discussing about aftercare in the possibility of going to a methadone clinic. On interview the patient denies new symptoms concerned about her aftercare. Mental Status Exam Mental Status Exam Patient Appearance: Appropriate Patient Orientation: Person and Situation Level of Consciousness: Awake and Appropriate Patient Behavior: Guarded and Passive Mood Description: Calm Affect Description: Constricted Patient Cognition Impaired: Yes Ability to Follow Directions: Good Speech Pattern: Clear Hallucinations: None Delusions: Not Present Thought Process: Distracted Thought Content: positive for [place] and positive for Poverty of Content Judgement: Fair Diagnostics Vital Signs (24Hr): Vital Signs - 24 hr 06/13/24 19:49 06/14/24 08:00 Temperature 98.3 F 97.6 F Pulse Rate 83 87 Respiratory Rate 16 16 Blood Pressure 133/72 106/58 L Pulse Oximetry 99 96 Oxygen Delivery Method Room Air Room Air BMI result Body Mass Index 38.5 Labs 05/22/24 08:24 Imaging Radiology Impressions: ITS Impressions Lumbar Spine X-Ray 06/07/24 15:00 IMPRESSION: Unremarkable examination. Electronically signed by: Cristy Mathis MD 06/08/2024 07:38 AM EDT Medications Medications Current Medications Acetaminophen (Acetaminophen 325 Mg Tablet) 650 mg PO Q6H PRN PRN Reason: Headache/Pain Mild Scale (1-3) Last Admin: 05/28/24 20:41 Dose: 650 mg Al Hydroxide/Mg Hydroxide (Magnesium Hydrox/Alum Hydrox 30 Ml Oral.Susp) 30 ml PO Q6H PRN PRN Reason: Heartburn/Nausea Albuterol Sulfate (Albuterol Sulfate 90 Mcg 8 Gm Inhaler) 2 puff INHALE Q6H PRN PRN Reason: wheezing Buspirone HCl (Buspirone Hcl 10 Mg Tablet) 10 mg PO TID [facility] Last Admin: 06/14/24 08:45 Dose: 10 mg Chlorpromazine HCl (Chlorpromazine Hcl 25 Mg Tablet) 50 mg PO TID PRN PRN Reason: agitation Last Admin: 06/12/24 15:12 Dose: 50 mg Clonazepam (Clonazepam 0.5 Mg Tablet) 0.5 mg PO TID [facility] Last Admin: 06/14/24 08:45 Dose: 0.5 mg Cyclobenzaprine HCl (Cyclobenzaprine Hcl 10 Mg Tablet) 10 mg PO TID PRN PRN Reason: Back pain Last Admin: 06/14/24 08:45 Dose: 10 mg Doxepin HCl (Doxepin Hcl 10 Mg Capsule) 20 mg PO BEDTIME IJEOMA Last Admin: 06/13/24 21:03 Dose: 20 mg Hydroxyzine HCl (Hydroxyzine Hcl 25 Mg Tablet) 25 mg PO Q6H PRN PRN Reason: Anxiety Last Admin: 06/11/24 10:46 Dose: 25 mg Ibuprofen (Ibuprofen 800 Mg Tablet) 800 mg PO Q8H PRN PRN Reason: Back pain Last Admin: 06/06/24 21:35 Dose: 800 mg Lidocaine (Lidocaine 4 % Patch Adh..Patch) 1 patch TRANSDERMA DAILY [facility]; Protocol Last Admin: 06/14/24 08:42 Dose: 1 patch Magnesium Hydroxide (Milk Of Magnesia 30 Ml Oral.Susp) 30 ml PO DAILY PRN PRN Reason: Constipation Methadone HCl (Methadone Hcl 20 Mg/2 Ml Oral.Conc) 100 mg PO DAILY [facility] Last Admin: 06/14/24 07:39 Dose: 100 mg Mirtazapine (Mirtazapine 15 Mg Tablet) 15 mg PO BEDTIME IJEOMA Last Admin: 06/13/24 21:02 Dose: 15 mg Nicotine (Nicotine 21 Mg Patch.Td24) 21 mg TRANSDERMA DAILY PRN PRN Reason: nicotine cravings Last Admin: 06/14/24 08:44 Dose: 21 mg Nicotine Polacrilex (Nicotine Polacrilex Lozenge 4 Mg Lozenge) 4 mg BUCCAL Q2H PRN PRN Reason: Nicotine Cravings Pramipexole Dihydrochloride (Pramipexole Di-Hcl 0.125 Mg Tablet) 0.125 mg PO BEDTIME IJEOMA Last Admin: 06/13/24 21:02 Dose: 0.125 mg Prazosin HCl (Prazosin Hcl 1 Mg Capsule) 4 mg PO BEDTIME [facility]; Protocol Last Admin: 06/13/24 21:03 Dose: 4 mg Quetiapine Fumarate (Quetiapine Fumarate 50 Mg Tablet) 50 mg PO TID PRN PRN Reason: anxiety, agitation Last Admin: 05/30/24 20:38 Dose: 50 mg Quetiapine Fumarate (Quetiapine Fumarate 25 Mg Tablet) 75 mg PO BID@0900,1400 [facility] Last Admin: 06/14/24 08:46 Dose: 75 mg Quetiapine Fumarate (Quetiapine Fumarate 50 Mg Tablet) 350 mg PO BEDTIME [facility] Last Admin: 06/13/24 21:02 Dose: 350 mg Sertraline HCl (Sertraline Hcl 50 Mg Tablet) 150 mg PO DAILY [facility] Last Admin: 06/14/24 08:46 Dose: 150 mg Allergies Allergies Allergy/AdvReac Type Severity Reaction Status Date / Time Penicillins Allergy Intermediate HIVES Verified 03/14/24 15:53 Assessment & Plan Assessment & Plan (1) Schizoaffective disorder, bipolar type: Status: Acute Code(s): F25.0 - Schizoaffective disorder, bipolar type (2) Acute stress disorder: Status: Acute Code(s): F43.0 - Acute stress reaction (3) Opioid use disorder: Status: Acute Code(s): F11.90 - Opioid use, unspecified, uncomplicated Plan ASD, PTSD, Recurrent Major Depression, Polysubstance Use Disorder; also manic episodes; AH independent of mood Hospital course: 05/23: Continue current regimen and plans 05/24: Continue current regimen and plan 05/26: EKG as Seroquel prn has been added. 05/28: Ibuprofen prn for back pain Tolerating Trileptal trial 05/29 reviewed history and it seems that patient meets criteria for schizoaffective disorder, bipolar type. Patient reports that she has been quite depressed; she says her mood improved for 1 day and she had less anxiety, attended to ADLs but returned has been present for the past 2 days. She denies any SI. Patient says that the Seroquel and Zoloft were started at [facility]; she says that there she was still depressed but was overall feeling better enough to discharge. She said post discharge she had a manic episode and then got depressed. Reviewed history with patient: Patient reports being sober for 7 years, relapsed this past February when her mother (and then for 2 weeks) in past, while sober she reports history of manic episodes that can last anywhere from 3-7 days; episodes include episodes of talking fast, lots of activity...shopping sprees, buying excessive amount of scratch tickets...mind racing, having a lot of energy, not sleeping at all for 2-3 days and then very little for subsequent days... hanging around friends I should not be with (who shoplifters...) and which resulted in relapse.... Patient reports her friends notice these changes in her behavior. After such an episode, patient gets very depressed. She says this post manic depression is what resulted in this admission to [place]. Patient reports many past hospitalizations for depression often happen after a manic episode; she says some duration of manic episode happens about twice a month. Regarding history of depression, patient reports that medications have been partially helpful but depression remains. -Patient reports that her Mother had Schizoaffective disorder, bipolar type (Schizophrenia with manic episodes). Initially patient was reticent to talk about AVH; however she opened up and reports that daily she experiences AH telling her to pull her hair, to do things to hurt self; if her on people the voice will say that people are talking about her... She thinks that this is real and has a hard time ignoring it; she was however open to considering it might be her mind playing tricks on her because of mental illness. She reports presence of AH independent of mood. Discussed medication management for symptoms and reviewed risks/side-effects of Vraylar and pt willing to start (considered lithium; patient does not remember if past med trials were helpful) will dc Trileptal; just started 2 days ago; no effect yet discussed insomnia; she thinks Trazodone may work if 100mg; will schedule Trazodone and make Seroquel 200mg a prn for continued insomnia (goal to only be on 1 antipsychotic) 05/30 still AH, no changes but no side-effects; still depressed and hard to do ADL's but is forcing herself to shower agrees to increased vraylar; says slept well enough on trazodone; asks for extra PRN trazodone since waking at night. 05/31 Patient reports that mood is better today. She was proud of herself that she went to a group and showered yesterday. She says that auditory hallucinations are the same but is grateful for abating depression. -continue current Vraylar 3 mg; was just started on this dose and hopefully AH will diminish as well. 06/02: DC Trazodone Remeron 15 mg HS Buspirone 10 mg tid Seroquel 200 mg HS 06/04: Increase daytime Seroquel to 75 mg 0900,1400. 06/05: Klonopin 0.5 mg bid 06/08: Pt will use prn Seroquel/Chlorpromazine to assist with sleep as needed. 06/09 Reports that mood is overall better and patient does appear brighter. Auditory hallucinations remain. She said they are not as loud but they are still bothersome and hard to ignore. She agreed to increase Seroquel at bedtime to 300 mg. However she says she has been on Seroquel up to 800 mg and yet Voices remained. 06/10 Patient reports AH feels worse today and she has this paranoid thought that other people are following her and want to hurt her. She was disappointed saying she was initially feeling better but then a peer yelled at her and the voice said that he was trying to kill her; she ran into a room and ever since she has been worried about this. She reports sleeping better with increase Seroquel and does not want to get off Seroquel; she even thinks that Seroquel p.r.n. can replace Thorazine p.r.n.. However auditory hallucinations continue to plague her and she said she thinks on Haldol the voices were diminished. Bullard Machine Operator reviewed risks/side effects of antipsychotics and especially being on 2 antipsychotics, which patient understands but says she wants to try because of how problematic the voices are. 06/12: Inrease HS Seroquel to 350 mg HS 06/13 keep same treatment Plan: CV Q 15 minute checks START Haldol 2.5 mg b.i.d. for continuing AH Continue Seroquel 300 mg q.h.s; DC thorazine prn; pt says she'll use seroquel prn instead Continue Zoloft 150 mg; recently titrated Continue doxepin Continue prazosin Discontinue Vraylar Discontinue Trileptal; just started 2 days ago and no effect yet; replacing with Vraylar History of Med trials: Seroquel Abilify Risperdone Depakote Reason for continued inpatient stay Substantial Risk for: inability to function, rapid decompensation and med/psych decompensation Time Spent With Patient Time: Total time managing care of this patient today __20__ minutes.
[2024-06-14] MEDS: chlorproMAZINE HCl 25 MG TABLET 50 MG PO ×2 (14:58→20:08)
[2024-06-14 20:00] VITALS: BP 142/87; PULSE 109; RESP 16; TEMP 36.4; O2SAT 97
[2024-06-14] MEDS: Pramipexole Di-HCL 0.125 MG TABLET PO (20:08)
[2024-06-14] MEDS: Mirtazapine 15 MG TABLET PO (20:08)
[2024-06-14] MEDS: QUEtiapine Fumarate 50 MG TABLET 350 MG PO (20:08)
[2024-06-14] MEDS: Doxepin HCl 10 MG CAPSULE 20 MG PO (20:08)
[2024-06-14 20:10] VITALS: BP 142/87
[2024-06-14] MEDS: Prazosin HCL 1 MG CAPSULE 4 MG PO (20:10)
[2024-06-15] MEDS: methADONE HCl 20 MG/2 ML ORAL.CONC 100 MG PO (07:56)
[2024-06-15 08:00] VITALS: BP 124/67; PULSE 83; RESP 16; TEMP 36.3; O2SAT 99
[2024-06-15] MEDS: Nicotine 21 MG PATCH.TD24 TRANSDERMA (08:39)
[2024-06-15] MEDS: chlorproMAZINE HCl 25 MG TABLET 50 MG PO ×2 (08:40→14:03)
[2024-06-15] MEDS: Sertraline HCL 50 MG TABLET 150 MG PO (08:40)
[2024-06-15] MEDS: QUEtiapine Fumarate 25 MG TABLET 75 MG PO (08:40)
[2024-06-15] MEDS: Cyclobenzaprine HCl 10 MG TABLET PO ×3 (08:40→21:02)
[2024-06-15] MEDS: clonazePAM 0.5 MG TABLET PO ×3 (08:41→20:44)
[2024-06-15] MEDS: busPIRone HCl 10 MG TABLET PO (08:41)
[2024-06-15] MEDS: Lidocaine 4 % Patch ADH..PATCH 1 PATCH TRANSDERMA (08:41)
[2024-06-15] MEDS: QUEtiapine Fumarate 100 MG TABLET PO (14:03)
[2024-06-15] MEDS: busPIRone HCl 5 MG TABLET 15 MG PO ×2 (14:03→20:44)
[2024-06-15] MEDS: Loperamide HCl 2 MG CAPSULE 4 MG PO (17:20)
--- NOTE | 2024-06-15 17:30 | P.PNPSI_ITS ---
Subjective Subjective Date of Service: 06/15/24 Reason For Visit: mood disorder Subjective Notes: Conditional Voluntary Healthcare Proxy: No Guardianship: No Medical Problems Affecting Mental Status: No Interim History: The weekend was not too bad, still anxious, depressed, but each day is different for me. I did laundry, a few groups, I panic when things happen here and get paranoid. I don't feel overmedicated, I am sleeping, eating, SI is decreased. Talked about aftercare-looking for a therapist, prescriber, grief support. Discussed needing to sell her mobile home. Discussed that her friend, father and all in that home and she needs to move forward. Current area has only drug related connections and she feels she needs to make significant changes in her peer group. Asks for NA, AA resources which addictions was asked to consult with her. Discussed needing an digital marketing strategist to discuss how to sell the home. Medication Compliance: Yes Side effects from medications: No Attending Groups: Intermittent Review of Systems Acute medical concerns: No Medical Review of Systems: unchanged Review of Systems Review of Systems Yes all other systems are reviewed and are negative Mental Status Exam Mental Status Exam Patient Appearance: Fatigued Patient Orientation: Person, Place, Time and Situation Level of Consciousness: Alert Patient Behavior: Appropriate, Talkative, Cooperative and Good Eye Contact Mood Description: Depressed Affect Description: Flat Patient Cognition Impaired: No Ability to Follow Directions: Good Speech Pattern: Spontaneous Speech Memory Description: Intact Hallucinations: None Delusions: Not Present Thought Process: Rumination Thought Content: positive for Circumstantial, positive for Perseveration and positive for Suicidal Ideation (denies) Depressive Symptoms: Increased Anxiety and Increased Fatigue Judgement: Good Diagnostics Vital Signs (24Hr): Vital Signs - 24 hr 06/14/24 20:00 06/14/24 20:10 06/15/24 08:00 Temperature 97.6 F 97.3 F Pulse Rate 109 H 83 Respiratory Rate 16 16 Blood Pressure 142/87 H 142/87 H 124/67 Pulse Oximetry 97 99 Oxygen Delivery Method Room Air Room Air BMI result Body Mass Index 38.5 Labs 05/22/24 08:24 Imaging Radiology Impressions: ITS Impressions Lumbar Spine X-Ray 06/07/24 15:00 IMPRESSION: Unremarkable examination. Electronically signed by: Crisyt Mathis MD 06/08/2024 07:38 AM EDT Medications Medications Current Medications Acetaminophen (Acetaminophen 325 Mg Tablet) 650 mg PO Q6H PRN PRN Reason: Headache/Pain Mild Scale (1-3) Last Admin: 05/28/24 20:41 Dose: 650 mg Al Hydroxide/Mg Hydroxide (Magnesium Hydrox/Alum Hydrox 30 Ml Oral.Susp) 30 ml PO Q6H PRN PRN Reason: Heartburn/Nausea Albuterol Sulfate (Albuterol Sulfate 90 Mcg 8 Gm Inhaler) 2 puff INHALE Q6H PRN PRN Reason: wheezing Buspirone HCl (Buspirone Hcl 5 Mg Tablet) 15 mg PO TID [facility] Last Admin: 06/15/24 14:03 Dose: 15 mg Chlorpromazine HCl (Chlorpromazine Hcl 25 Mg Tablet) 50 mg PO TID PRN PRN Reason: agitation Last Admin: 06/15/24 14:03 Dose: 50 mg Clonazepam (Clonazepam 0.5 Mg Tablet) 0.5 mg PO TID [facility] Last Admin: 06/15/24 14:04 Dose: 0.5 mg Cyclobenzaprine HCl (Cyclobenzaprine Hcl 10 Mg Tablet) 10 mg PO TID PRN PRN Reason: Back pain Last Admin: 06/15/24 14:04 Dose: 10 mg Doxepin HCl (Doxepin Hcl 10 Mg Capsule) 20 mg PO BEDTIME [facility] Last Admin: 06/14/24 20:08 Dose: 20 mg Hydroxyzine HCl (Hydroxyzine Hcl 25 Mg Tablet) 25 mg PO Q6H PRN PRN Reason: Anxiety Last Admin: 06/11/24 10:46 Dose: 25 mg Ibuprofen (Ibuprofen 800 Mg Tablet) 800 mg PO Q8H PRN PRN Reason: Back pain Last Admin: 06/06/24 21:35 Dose: 800 mg Lidocaine (Lidocaine 4 % Patch Adh..Patch) 1 patch TRANSDERMA DAILY [facility]; Protocol Last Admin: 06/15/24 08:41 Dose: 1 patch Loperamide HCl (Loperamide Hcl 2 Mg Capsule) 4 mg PO Q6H PRN PRN Reason: Diarrhea Last Admin: 06/15/24 17:20 Dose: 4 mg Magnesium Hydroxide (Milk Of Magnesia 30 Ml Oral.Susp) 30 ml PO DAILY PRN PRN Reason: Constipation Methadone HCl (Methadone Hcl 20 Mg/2 Ml Oral.Conc) 100 mg PO DAILY IJEOMA Last Admin: 06/15/24 07:56 Dose: 100 mg Mirtazapine (Mirtazapine 15 Mg Tablet) 15 mg PO BEDTIME IJEOMA Last Admin: 06/14/24 20:08 Dose: 15 mg Nicotine (Nicotine 21 Mg Patch.Td24) 21 mg TRANSDERMA DAILY PRN PRN Reason: nicotine cravings Last Admin: 06/15/24 08:39 Dose: 21 mg Nicotine Polacrilex (Nicotine Polacrilex Lozenge 4 Mg Lozenge) 4 mg BUCCAL Q2H PRN PRN Reason: Nicotine Cravings Pramipexole Dihydrochloride (Pramipexole Di-Hcl 0.125 Mg Tablet) 0.125 mg PO BEDTIME IJEOMA Last Admin: 06/14/24 20:08 Dose: 0.125 mg Prazosin HCl (Prazosin Hcl 1 Mg Capsule) 4 mg PO BEDTIME [facility]; Protocol Last Admin: 06/14/24 20:10 Dose: 4 mg Quetiapine Fumarate (Quetiapine Fumarate 50 Mg Tablet) 50 mg PO TID PRN PRN Reason: anxiety, agitation Last Admin: 05/30/24 20:38 Dose: 50 mg Quetiapine Fumarate (Quetiapine Fumarate 50 Mg Tablet) 350 mg PO BEDTIME IJEOMA Last Admin: 06/14/24 20:08 Dose: 350 mg Quetiapine Fumarate (Quetiapine Fumarate 100 Mg Tablet) 100 mg PO BID@0900,1400 [facility] Last Admin: 06/15/24 14:03 Dose: 100 mg Sertraline HCl (Sertraline Hcl 50 Mg Tablet) 150 mg PO DAILY [facility] Last Admin: 06/15/24 08:40 Dose: 150 mg Allergies Allergies Allergy/AdvReac Type Severity Reaction Status Date / Time Penicillins Allergy Intermediate HIVES Verified 03/14/24 15:53 Assessment & Plan Assessment & Plan (1) Schizoaffective disorder, bipolar type: Status: Acute Code(s): F25.0 - Schizoaffective disorder, bipolar type (2) Acute stress disorder: Status: Acute Code(s): F43.0 - Acute stress reaction (3) Opioid use disorder: Status: Acute Code(s): F11.90 - Opioid use, unspecified, uncomplicated Plan ASD, PTSD, Recurrent Major Depression, Polysubstance Use Disorder; also manic episodes; AH independent of mood Hospital course: 05/23: Continue current regimen and plans 05/24: Continue current regimen and plan 05/26: EKG as Seroquel prn has been added. 05/28: Ibuprofen prn for back pain Tolerating Trileptal trial 05/29 reviewed history and it seems that patient meets criteria for schizoaffective disorder, bipolar type. Patient reports that she has been quite depressed; she says her mood improved for 1 day and she had less anxiety, attended to ADLs but returned has been present for the past 2 days. She denies any SI. Patient says that the Seroquel and Zoloft were started at [facility]; she says that there she was still depressed but was overall feeling better enough to discharge. She said post discharge she had a manic episode and then got depressed. Reviewed history with patient: Patient reports being sober for 7 years, relapsed this past February when her mother (and then for 2 weeks) in past, while sober she reports history of manic episodes that can last anywhere from 3-7 days; episodes include episodes of talking fast, lots of activity...shopping sprees, buying excessive amount of scratch tickets...mind racing, having a lot of energy, not sleeping at all for 2-3 days and then very little for subsequent days... hanging around friends I should not be with (who shoplifters...) and which resulted in relapse.... Patient reports her friends notice these changes in her behavior. After such an episode, patient gets very depressed. She says this post manic depression is what resulted in this admission to [place]. Patient reports many past hospitalizations for depression often happen after a manic episode; she says some duration of manic episode happens about twice a month. Regarding history of depression, patient reports that medications have been partially helpful but depression remains. -Patient reports that her Mother had Schizoaffective disorder, bipolar type (Schizophrenia with manic episodes). Initially patient was reticent to talk about AVH; however she opened up and reports that daily she experiences AH telling her to pull her hair, to do things to hurt self; if her on people the voice will say that people are talking about her... She thinks that this is real and has a hard time ignoring it; she was however open to considering it might be her mind playing tricks on her because of mental illness. She reports presence of AH independent of mood. Discussed medication management for symptoms and reviewed risks/side-effects of Vraylar and pt willing to start (considered lithium; patient does not remember if past med trials were helpful) will dc Trileptal; just started 2 days ago; no effect yet discussed insomnia; she thinks Trazodone may work if 100mg; will schedule Trazodone and make Seroquel 200mg a prn for continued insomnia (goal to only be on 1 antipsychotic) 05/30 still AH, no changes but no side-effects; still depressed and hard to do ADL's but is forcing herself to shower agrees to increased vraylar; says slept well enough on trazodone; asks for extra PRN trazodone since waking at night. 05/31 Patient reports that mood is better today. She was proud of herself that she went to a group and showered yesterday. She says that auditory hallucinations are the same but is grateful for abating depression. -continue current Vraylar 3 mg; was just started on this dose and hopefully AH will diminish as well. 06/02: DC Trazodone Remeron 15 mg HS Buspirone 10 mg tid Seroquel 200 mg HS 06/04: Increase daytime Seroquel to 75 mg 0900,1400. 06/05: Klonopin 0.5 mg bid 06/08: Pt will use prn Seroquel/Chlorpromazine to assist with sleep as needed. 06/09 Reports that mood is overall better and patient does appear brighter. Auditory hallucinations remain. She said they are not as loud but they are still bothersome and hard to ignore. She agreed to increase Seroquel at bedtime to 300 mg. However she says she has been on Seroquel up to 800 mg and yet Voices remained. 06/10 Patient reports AH feels worse today and she has this paranoid thought that other people are following her and want to hurt her. She was disappointed saying she was initially feeling better but then a peer yelled at her and the voice said that he was trying to kill her; she ran into a room and ever since she has been worried about this. She reports sleeping better with increase Seroquel and does not want to get off Seroquel; she even thinks that Seroquel p.r.n. can replace Thorazine p.r.n.. However auditory hallucinations continue to plague her and she said she thinks on Haldol the voices were diminished. 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 06/12: Inrease HS Seroquel to 350 mg HS 06/13 keep same treatment 06/15: Imodium prn for reports of diarrhea Increase buspirone to 15 mg tid Increase daytime Seroquel to 100 mg bid Addiction consult for NA and AA resources Discharge planning Plan: CV Q 15 minute checks START Haldol 2.5 mg b.i.d. for continuing AH Continue Seroquel 300 mg q.h.s; DC thorazine prn; pt says she'll use seroquel prn instead Continue Zoloft 150 mg; recently titrated Continue doxepin Continue prazosin Discontinue Vraylar Discontinue Trileptal; just started 2 days ago and no effect yet; replacing with Vraylar History of Med trials: Seroquel Ayde Risperdone Depakote Reason for continued inpatient stay Substantial Risk for: rapid decompensation Time Spent With Patient Time: Total time managing care of this patient today ____ minutes.
[2024-06-15 20:00] VITALS: BP 121/67; PULSE 97; RESP 16; TEMP 36.3; O2SAT 97
[2024-06-15] MEDS: Mirtazapine 15 MG TABLET PO (20:44)
[2024-06-15] MEDS: Doxepin HCl 10 MG CAPSULE 20 MG PO (20:44)
[2024-06-15] MEDS: QUEtiapine Fumarate 50 MG TABLET 350 MG PO (20:44)
[2024-06-15] MEDS: Pramipexole Di-HCL 0.125 MG TABLET PO (20:44)
[2024-06-15] MEDS: Prazosin HCL 1 MG CAPSULE 4 MG PO (20:44)
[2024-06-16] MEDS: methADONE HCl 20 MG/2 ML ORAL.CONC 100 MG PO (07:51)
[2024-06-16 08:00] VITALS: BP 107/51; PULSE 81; RESP 16; TEMP 36.5; O2SAT 98
[2024-06-16] MEDS: Lidocaine 4 % Patch ADH..PATCH 1 PATCH TRANSDERMA (08:32)
[2024-06-16] MEDS: Nicotine 21 MG PATCH.TD24 TRANSDERMA (08:34)
[2024-06-16] MEDS: busPIRone HCl 5 MG TABLET 15 MG PO ×3 (08:35→20:32)
[2024-06-16] MEDS: clonazePAM 0.5 MG TABLET PO ×3 (08:36→20:30)
[2024-06-16] MEDS: QUEtiapine Fumarate 100 MG TABLET PO ×2 (08:36→14:55)
[2024-06-16] MEDS: Cyclobenzaprine HCl 10 MG TABLET PO ×2 (08:36→18:42)
[2024-06-16] MEDS: Sertraline HCL 50 MG TABLET 150 MG PO (08:36)
--- NOTE | 2024-06-16 15:45 | HO.SUDE ---
Met with pt in room 506 after receiving request for consult in re: to [facility] community resources. Pt will be D/C in a few days and is looking for community resources for ongoing sobriety. Pt is currently on methadone and reports her current dose is effective. She will be going to [facility] for aftercare psych/therapy. T/W provided pt with resources including kiara pascual, AA and N/A meeting lists, Meeting Guide Gemma, transition coach resources and community resource booklet. Also supplied pt with [facility] contact info for future needs/concerns. No f/u needed at this time. Report given to pt's nurse and Regina Urbina NP.
--- NOTE | 2024-06-16 17:43 | P.PNPSI_ITS ---
Subjective Subjective Date of Service: 06/16/24 Reason For Visit: mood disorder Medical Problems Affecting Mental Status: No Interim History: Reports she is tolerating buspirone increase and daily quetiapine increase. Planning discharge for 06/18/24. Apprehensive, talks of several tasks she needs to begin to do to prepare. Medication Compliance: Yes Side effects from medications: No Attending Groups: Intermittent Review of Systems Acute medical concerns: No Medical Review of Systems: unchanged Review of Systems Review of Systems Yes all other systems are reviewed and are negative Mental Status Exam Mental Status Exam Patient Appearance: Fatigued Patient Orientation: Person, Place, Time and Situation Level of Consciousness: Alert Patient Behavior: Appropriate, Talkative, Cooperative and Good Eye Contact Mood Description: Depressed Affect Description: Flat Patient Cognition Impaired: No Ability to Follow Directions: Good Speech Pattern: Spontaneous Speech Memory Description: Intact Hallucinations: None Delusions: Not Present Thought Process: Rumination Thought Content: positive for Circumstantial, positive for Perseveration and positive for Suicidal Ideation (denies) Depressive Symptoms: Increased Anxiety and Increased Fatigue Judgement: Good Diagnostics Vital Signs (24Hr): Vital Signs - 24 hr 06/15/24 20:00 06/16/24 08:00 Temperature 97.3 F 97.7 F Pulse Rate 97 81 Respiratory Rate 16 16 Blood Pressure 121/67 107/51 L Pulse Oximetry 97 98 Oxygen Delivery Method Room Air Room Air BMI result Body Mass Index 38.5 Labs 05/22/24 08:24 Imaging Radiology Impressions: ITS Impressions Lumbar Spine X-Ray 06/07/24 15:00 IMPRESSION: Unremarkable examination. Electronically signed by: Cristy Mathis MD 06/08/2024 07:38 AM EDT Medications Medications Current Medications Acetaminophen (Acetaminophen 325 Mg Tablet) 650 mg PO Q6H PRN PRN Reason: Headache/Pain Mild Scale (1-3) Last Admin: 05/28/24 20:41 Dose: 650 mg Al Hydroxide/Mg Hydroxide (Magnesium Hydrox/Alum Hydrox 30 Ml Oral.Susp) 30 ml PO Q6H PRN PRN Reason: Heartburn/Nausea Albuterol Sulfate (Albuterol Sulfate 90 Mcg 8 Gm Inhaler) 2 puff INHALE Q6H PRN PRN Reason: wheezing Buspirone HCl (Buspirone Hcl 5 Mg Tablet) 15 mg PO TID [facility] Last Admin: 06/16/24 14:55 Dose: 15 mg Chlorpromazine HCl (Chlorpromazine Hcl 25 Mg Tablet) 50 mg PO TID PRN PRN Reason: agitation Last Admin: 06/15/24 14:03 Dose: 50 mg Clonazepam (Clonazepam 0.5 Mg Tablet) 0.5 mg PO TID [facility] Last Admin: 06/16/24 14:55 Dose: 0.5 mg Cyclobenzaprine HCl (Cyclobenzaprine Hcl 10 Mg Tablet) 10 mg PO TID PRN PRN Reason: Back pain Last Admin: 06/16/24 08:36 Dose: 10 mg Doxepin HCl (Doxepin Hcl 10 Mg Capsule) 20 mg PO BEDTIME [facility] Last Admin: 06/15/24 20:44 Dose: 20 mg Hydroxyzine HCl (Hydroxyzine Hcl 25 Mg Tablet) 25 mg PO Q6H PRN PRN Reason: Anxiety Last Admin: 06/11/24 10:46 Dose: 25 mg Ibuprofen (Ibuprofen 800 Mg Tablet) 800 mg PO Q8H PRN PRN Reason: Back pain Last Admin: 06/06/24 21:35 Dose: 800 mg Lidocaine (Lidocaine 4 % Patch Adh..Patch) 1 patch TRANSDERMA DAILY [facility]; Protocol Last Admin: 06/16/24 08:32 Dose: 1 patch Loperamide HCl (Loperamide Hcl 2 Mg Capsule) 4 mg PO Q6H PRN PRN Reason: Diarrhea Last Admin: 06/15/24 17:20 Dose: 4 mg Magnesium Hydroxide (Milk Of Magnesia 30 Ml Oral.Susp) 30 ml PO DAILY PRN PRN Reason: Constipation Methadone HCl (Methadone Hcl 20 Mg/2 Ml Oral.Conc) 100 mg PO DAILY [facility] Last Admin: 06/16/24 07:51 Dose: 100 mg Mirtazapine (Mirtazapine 15 Mg Tablet) 15 mg PO BEDTIME [facility] Last Admin: 06/15/24 20:44 Dose: 15 mg Nicotine (Nicotine 21 Mg Patch.Td24) 21 mg TRANSDERMA DAILY PRN PRN Reason: nicotine cravings Last Admin: 06/16/24 08:34 Dose: 21 mg Nicotine Polacrilex (Nicotine Polacrilex Lozenge 4 Mg Lozenge) 4 mg BUCCAL Q2H PRN PRN Reason: Nicotine Cravings Pramipexole Dihydrochloride (Pramipexole Di-Hcl 0.125 Mg Tablet) 0.125 mg PO BEDTIME [facility] Last Admin: 06/15/24 20:44 Dose: 0.125 mg Prazosin HCl (Prazosin Hcl 1 Mg Capsule) 4 mg PO BEDTIME [facility]; Protocol Last Admin: 06/15/24 20:44 Dose: 4 mg Quetiapine Fumarate (Quetiapine Fumarate 50 Mg Tablet) 50 mg PO TID PRN PRN Reason: anxiety, agitation Last Admin: 05/30/24 20:38 Dose: 50 mg Quetiapine Fumarate (Quetiapine Fumarate 50 Mg Tablet) 350 mg PO BEDTIME [facility] Last Admin: 06/15/24 20:44 Dose: 350 mg Quetiapine Fumarate (Quetiapine Fumarate 100 Mg Tablet) 100 mg PO BID@0900,1400 [facility] Last Admin: 06/16/24 14:55 Dose: 100 mg Sertraline HCl (Sertraline Hcl 50 Mg Tablet) 150 mg PO DAILY [facility] Last Admin: 06/16/24 08:36 Dose: 150 mg Allergies Allergies Allergy/AdvReac Type Severity Reaction Status Date / Time Penicillins Allergy Intermediate HIVES Verified 03/14/24 15:53 Assessment & Plan Assessment & Plan (1) Schizoaffective disorder, bipolar type: Status: Acute Code(s): F25.0 - Schizoaffective disorder, bipolar type (2) Acute stress disorder: Status: Acute Code(s): F43.0 - Acute stress reaction (3) Opioid use disorder: Status: Acute Code(s): F11.90 - Opioid use, unspecified, uncomplicated Plan ASD, PTSD, Recurrent Major Depression, Polysubstance Use Disorder; also manic episodes; independent of mood Hospital course: 05/23: Continue current regimen and plans 05/24: Continue current regimen and plan 05/26: EKG as Seroquel prn has been added. 05/28: Ibuprofen prn for back pain Tolerating Trileptal trial 05/29 reviewed history and it seems that patient meets criteria for schizoaffective disorder, bipolar type. Patient reports that she has been quite depressed; she says her mood improved for 1 day and she had less anxiety, attended to ADLs but returned has been present for the past 2 days. She denies any SI. Patient says that the Seroquel and Zoloft were started at [facility]; she says that there she was still depressed but was overall feeling better enough to discharge. She said post discharge she had a manic episode and then got depressed. Reviewed history with patient: Patient reports being sober for 7 years, relapsed this past February when her mother (and then for 2 weeks) in past, while sober she reports history of manic episodes that can last anywhere from 3-7 days; episodes include episodes of talking fast, lots of activity...shopping sprees, buying excessive amount of scratch tickets...mind racing, having a lot of energy, not sleeping at all for 2-3 days and then very little for subsequent days... hanging around friends I should not be with (who shoplifters...) and which resulted in relapse.... Patient reports her friends notice these changes in her behavior. After such an episode, patient gets very depressed. She says this post manic depression is what resulted in this admission to [place]. Patient reports many past hospitalizations for depression often happen after a manic episode; she says some duration of manic episode happens about twice a month. Regarding history of depression, patient reports that medications have been partially helpful but depression remains. -Patient reports that her Mother had Schizoaffective disorder, bipolar type (Schizophrenia with manic episodes). Initially patient was reticent to talk about AVH; however she opened up and reports that daily she experiences AH telling her to pull her hair, to do things to hurt self; if her on people the voice will say that people are talking about her... She thinks that this is real and has a hard time ignoring it; she was however open to considering it might be her mind playing tricks on her because of mental illness. She reports presence of AH independent of mood. Discussed medication management for symptoms and reviewed risks/side-effects of Vraylar and pt willing to start (considered lithium; patient does not remember if past med trials were helpful) will dc Trileptal; just started 2 days ago; no effect yet discussed insomnia; she thinks Trazodone may work if 100mg; will schedule Trazodone and make Seroquel 200mg a prn for continued insomnia (goal to only be on 1 antipsychotic) 05/30 still AH, no changes but no side-effects; still depressed and hard to do ADL's but is forcing herself to shower agrees to increased vraylar; says slept well enough on trazodone; asks for extra PRN trazodone since waking at night. 05/31 Patient reports that mood is better today. She was proud of herself that she went to a group and showered yesterday. She says that auditory hallucinations are the same but is grateful for abating depression. -continue current Vraylar 3 mg; was just started on this dose and hopefully AH will diminish as well. 06/02: DC Trazodone Remeron 15 mg HS Buspirone 10 mg tid Seroquel 200 mg HS 06/04: Increase daytime Seroquel to 75 mg 0900,1400. 06/05: Klonopin 0.5 mg bid 06/08: Pt will use prn Seroquel/Chlorpromazine to assist with sleep as needed. 06/09 Reports that mood is overall better and patient does appear brighter. Auditory hallucinations remain. She said they are not as loud but they are still bothersome and hard to ignore. She agreed to increase Seroquel at bedtime to 300 mg. However she says she has been on Seroquel up to 800 mg and yet Voices remained. 06/10 Patient reports AH feels worse today and she has this paranoid thought that other people are following her and want to hurt her. She was disappointed saying she was initially feeling better but then a peer yelled at her and the voice said that he was trying to kill her; she ran into a room and ever since she has been worried about this. She reports sleeping better with increase Seroquel and does not want to get off Seroquel; she even thinks that Seroquel p.r.n. can replace Thorazine p.r.n.. However auditory hallucinations continue to plague her and she said she thinks on Haldol the voices were diminished. 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 06/12: Inrease HS Seroquel to 350 mg HS 06/13 keep same treatment 06/15: Imodium prn for reports of diarrhea Increase buspirone to 15 mg tid Increase daytime Seroquel to 100 mg bid Addiction consult for NA and AA resources Discharge planning 06/16: Continue tx Discharge planning Plan: CV Q 15 minute checks START Haldol 2.5 mg b.i.d. for continuing AH Continue Seroquel 300 mg q.h.s; DC thorazine prn; pt says she'll use seroquel prn instead Continue Zoloft 150 mg; recently titrated Continue doxepin Continue prazosin Discontinue Vraylar Discontinue Trileptal; just started 2 days ago and no effect yet; replacing with Vraylar History of Med trials: Seroquel Abigrant Risperdone Depakote Reason for continued inpatient stay Substantial Risk for: rapid decompensation Time Spent With Patient Time: Total time managing care of this patient today ____ minutes.
[2024-06-16] MEDS: chlorproMAZINE HCl 25 MG TABLET 50 MG PO (18:42)
[2024-06-16 20:00] VITALS: BP 152/71; PULSE 85; TEMP 36.5; O2SAT 98
[2024-06-16] MEDS: Doxepin HCl 10 MG CAPSULE 20 MG PO (20:29)
[2024-06-16] MEDS: Acetaminophen 325 MG TABLET 650 MG PO (20:29)
[2024-06-16 20:30] VITALS: BP 120/62
[2024-06-16] MEDS: Prazosin HCL 1 MG CAPSULE 4 MG PO (20:30)
[2024-06-16] MEDS: Pramipexole Di-HCL 0.125 MG TABLET PO (20:30)
[2024-06-16] MEDS: QUEtiapine Fumarate 50 MG TABLET 350 MG PO (20:30)
[2024-06-16] MEDS: Mirtazapine 15 MG TABLET PO (20:32)
[2024-06-17] MEDS: methADONE HCl 20 MG/2 ML ORAL.CONC 100 MG PO (07:49)
[2024-06-17 08:00] VITALS: BP 115/58; PULSE 87; RESP 16; TEMP 36.6; O2SAT 99
[2024-06-17] MEDS: Nicotine 21 MG PATCH.TD24 TRANSDERMA (08:38)
[2024-06-17] MEDS: Lidocaine 4 % Patch ADH..PATCH 1 PATCH TRANSDERMA (08:39)
[2024-06-17] MEDS: busPIRone HCl 5 MG TABLET 15 MG PO ×3 (08:41→21:29)
[2024-06-17] MEDS: Cyclobenzaprine HCl 10 MG TABLET PO ×2 (08:42→21:29)
[2024-06-17] MEDS: clonazePAM 0.5 MG TABLET PO ×3 (08:42→21:28)
[2024-06-17] MEDS: QUEtiapine Fumarate 100 MG TABLET PO ×2 (08:42→15:21)
[2024-06-17] MEDS: Sertraline HCL 50 MG TABLET 150 MG PO (08:42)
--- NOTE | 2024-06-17 10:31 | P.PNPSI_ITS ---
Subjective Subjective Date of Service: 06/17/24 Reason For Visit: mood disorder Interim History: Reports urinary frequency, nocturnal urinary incontinence. Urine culture ordered and sent, results pending. Reports she is not feeling prepared to leave-asks to discharge on 06/19 She is working on organizing herself to return home-pleased with aftercare planning team has set up with her. Discussed last dose letter and responded to her questions. Pleased her out pt care will be consolidated with [facility]. Medication Compliance: Yes Side effects from medications: No Attending Groups: Intermittent Review of Systems Acute medical concerns: No Medical Review of Systems: unchanged Review of Systems Review of Systems reports urinary frequency and nocturnal incontinence. Urine culture is pending. Mental Status Exam Mental Status Exam Patient Appearance: Fatigued Patient Orientation: Person, Place, Time and Situation Level of Consciousness: Alert Patient Behavior: Appropriate, Talkative, Cooperative and Good Eye Contact Mood Description: Depressed Affect Description: Flat Patient Cognition Impaired: No Ability to Follow Directions: Good Speech Pattern: Spontaneous Speech Memory Description: Intact Hallucinations: None Delusions: Not Present Thought Process: Rumination Thought Content: positive for Circumstantial, positive for Perseveration and positive for Suicidal Ideation (denies) Depressive Symptoms: Increased Anxiety and Increased Fatigue Judgement: Good Diagnostics Vital Signs (24Hr): Vital Signs - 24 hr 06/16/24 20:00 06/16/24 20:30 06/17/24 08:00 Temperature 97.7 F 98 F Pulse Rate 85 87 Respiratory Rate 16 Blood Pressure 152/71 H 120/62 115/58 L Pulse Oximetry 98 99 Oxygen Delivery Method Room Air Room Air BMI result Body Mass Index 38.5 Labs 05/22/24 08:24 Imaging Radiology Impressions: ITS Impressions Lumbar Spine X-Ray 06/07/24 15:00 IMPRESSION: Unremarkable examination. Electronically signed by: Cristy Mathis MD 06/08/2024 07:38 AM EDT RP Medications Medications Current Medications Acetaminophen (Acetaminophen 325 Mg Tablet) 650 mg PO Q6H PRN PRN Reason: Headache/Pain Mild Scale (1-3) Last Admin: 06/16/24 20:29 Dose: 650 mg Al Hydroxide/Mg Hydroxide (Magnesium Hydrox/Alum Hydrox 30 Ml Oral.Susp) 30 ml PO Q6H PRN PRN Reason: Heartburn/Nausea Albuterol Sulfate (Albuterol Sulfate 90 Mcg 8 Gm Inhaler) 2 puff INHALE Q6H PRN PRN Reason: wheezing Buspirone HCl (Buspirone Hcl 5 Mg Tablet) 15 mg PO TID [facility] Last Admin: 06/17/24 08:41 Dose: 15 mg Chlorpromazine HCl (Chlorpromazine Hcl 25 Mg Tablet) 50 mg PO TID PRN PRN Reason: agitation Last Admin: 06/16/24 18:42 Dose: 50 mg Clonazepam (Clonazepam 0.5 Mg Tablet) 0.5 mg PO TID [facility] Last Admin: 06/17/24 08:42 Dose: 0.5 mg Cyclobenzaprine HCl (Cyclobenzaprine Hcl 10 Mg Tablet) 10 mg PO TID PRN PRN Reason: Back pain Last Admin: 06/17/24 08:42 Dose: 10 mg Doxepin HCl (Doxepin Hcl 10 Mg Capsule) 20 mg PO BEDTIME [facility] Last Admin: 06/16/24 20:29 Dose: 20 mg Hydroxyzine HCl (Hydroxyzine Hcl 25 Mg Tablet) 25 mg PO Q6H PRN PRN Reason: Anxiety Last Admin: 06/11/24 10:46 Dose: 25 mg Ibuprofen (Ibuprofen 800 Mg Tablet) 800 mg PO Q8H PRN PRN Reason: Back pain Last Admin: 06/06/24 21:35 Dose: 800 mg Lidocaine (Lidocaine 4 % Patch Adh..Patch) 1 patch TRANSDERMA DAILY [facility]; Protocol Last Admin: 06/17/24 08:39 Dose: 1 patch Loperamide HCl (Loperamide Hcl 2 Mg Capsule) 4 mg PO Q6H PRN PRN Reason: Diarrhea Last Admin: 06/15/24 17:20 Dose: 4 mg Magnesium Hydroxide (Milk Of Magnesia 30 Ml Oral.Susp) 30 ml PO DAILY PRN PRN Reason: Constipation Methadone HCl (Methadone Hcl 20 Mg/2 Ml Oral.Conc) 100 mg PO DAILY [facility] Last Admin: 06/17/24 07:49 Dose: 100 mg Mirtazapine (Mirtazapine 15 Mg Tablet) 15 mg PO BEDTIME [facility] Last Admin: 06/16/24 20:32 Dose: 15 mg Nicotine (Nicotine 21 Mg Patch.Td24) 21 mg TRANSDERMA DAILY PRN PRN Reason: nicotine cravings Last Admin: 06/17/24 08:38 Dose: 21 mg Nicotine Polacrilex (Nicotine Polacrilex Lozenge 4 Mg Lozenge) 4 mg BUCCAL Q2H PRN PRN Reason: Nicotine Cravings Pramipexole Dihydrochloride (Pramipexole Di-Hcl 0.125 Mg Tablet) 0.125 mg PO BEDTIME [facility] Last Admin: 06/16/24 20:30 Dose: 0.125 mg Prazosin HCl (Prazosin Hcl 1 Mg Capsule) 4 mg PO BEDTIME [facility]; Protocol Last Admin: 06/16/24 20:30 Dose: 4 mg Quetiapine Fumarate (Quetiapine Fumarate 50 Mg Tablet) 50 mg PO TID PRN PRN Reason: anxiety, agitation Last Admin: 05/30/24 20:38 Dose: 50 mg Quetiapine Fumarate (Quetiapine Fumarate 50 Mg Tablet) 350 mg PO BEDTIME [facility] Last Admin: 06/16/24 20:30 Dose: 350 mg Quetiapine Fumarate (Quetiapine Fumarate 100 Mg Tablet) 100 mg PO BID@0900,1400 [facility] Last Admin: 06/17/24 08:42 Dose: 100 mg Sertraline HCl (Sertraline Hcl 50 Mg Tablet) 150 mg PO DAILY [facility] Last Admin: 06/17/24 08:42 Dose: 150 mg Allergies Allergies Allergy/AdvReac Type Severity Reaction Status Date / Time Penicillins Allergy Intermediate HIVES Verified 03/14/24 15:53 Assessment & Plan Assessment & Plan (1) Schizoaffective disorder, bipolar type: Status: Acute Code(s): F25.0 - Schizoaffective disorder, bipolar type (2) Acute stress disorder: Status: Acute Code(s): F43.0 - Acute stress reaction (3) Opioid use disorder: Status: Acute Code(s): F11.90 - Opioid use, unspecified, uncomplicated Plan ASD, PTSD, Recurrent Major Depression, Polysubstance Use Disorder; also manic episodes; AH independent of mood Hospital course: 05/23: Continue current regimen and plans 05/24: Continue current regimen and plan 05/26: EKG as Seroquel prn has been added. 05/28: Ibuprofen prn for back pain Tolerating Trileptal trial 05/29 reviewed history and it seems that patient meets criteria for schizoaffective disorder, bipolar type. Patient reports that she has been quite depressed; she says her mood improved for 1 day and she had less anxiety, attended to ADLs but returned has been present for the past 2 days. She denies any SI. Patient says that the Seroquel and Zoloft were started at [facility]; she says that there she was still depressed but was overall feeling better enough to discharge. She said post discharge she had a manic episode and then got depressed. Reviewed history with patient: Patient reports being sober for 7 years, relapsed this past February when her mother (and then for 2 weeks) in past, while sober she reports history of manic episodes that can last anywhere from 3-7 days; episodes include episodes of talking fast, lots of activity...shopping sprees, buying excessive amount of scratch tickets...mind racing, having a lot of energy, not sleeping at all for 2-3 days and then very little for subsequent days... hanging around friends I should not be with (who shoplifters...) and which resulted in relapse.... Patient reports her friends notice these changes in her behavior. After such an episode, patient gets very depressed. She says this post manic depression is what resulted in this admission to [place]. Patient reports many past hospitalizations for depression often happen after a manic episode; she says some duration of manic episode happens about twice a month. Regarding history of depression, patient reports that medications have been partially helpful but depression remains. -Patient reports that her Mother had Schizoaffective disorder, bipolar type (Schizophrenia with manic episodes). Initially patient was reticent to talk about AVH; however she opened up and reports that daily she experiences AH telling her to pull her hair, to do things to hurt self; if her on people the voice will say that people are talking about her... She thinks that this is real and has a hard time ignoring it; she was however open to considering it might be her mind playing tricks on her because of mental illness. She reports presence of AH independent of mood. Discussed medication management for symptoms and reviewed risks/side-effects of Vraylar and pt willing to start (considered lithium; patient does not remember if past med trials were helpful) will dc Trileptal; just started 2 days ago; no effect yet discussed insomnia; she thinks Trazodone may work if 100mg; will schedule Trazodone and make Seroquel 200mg a prn for continued insomnia (goal to only be on 1 antipsychotic) 05/30 still AH, no changes but no side-effects; still depressed and hard to do ADL's but is forcing herself to shower agrees to increased vraylar; says slept well enough on trazodone; asks for extra PRN trazodone since waking at night. 05/31 Patient reports that mood is better today. She was proud of herself that she went to a group and showered yesterday. She says that auditory hallucinations are the same but is grateful for abating depression. -continue current Vraylar 3 mg; was just started on this dose and hopefully AH will diminish as well. 06/02: DC Trazodone Remeron 15 mg HS Buspirone 10 mg tid Seroquel 200 mg HS 06/04: Increase daytime Seroquel to 75 mg 0900,1400. 06/05: Klonopin 0.5 mg bid 06/08: Pt will use prn Seroquel/Chlorpromazine to assist with sleep as needed. 06/09 Reports that mood is overall better and patient does appear brighter. Auditory hallucinations remain. She said they are not as loud but they are still bothersome and hard to ignore. She agreed to increase Seroquel at bedtime to 300 mg. However she says she has been on Seroquel up to 800 mg and yet Voices remained. 06/10 Patient reports AH feels worse today and she has this paranoid thought that other people are following her and want to hurt her. She was disappointed saying she was initially feeling better but then a peer yelled at her and the voice said that he was trying to kill her; she ran into a room and ever since she has been worried about this. She reports sleeping better with increase Seroquel and does not want to get off Seroquel; she even thinks that Seroquel p.r.n. can replace Thorazine p.r.n.. However auditory hallucinations continue to plague her and she said she thinks on Haldol the voices were diminished. 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 06/12: Inrease HS Seroquel to 350 mg HS 06/13 keep same treatment 06/15: Imodium prn for reports of diarrhea Increase buspirone to 15 mg tid Increase daytime Seroquel to 100 mg bid Addiction consult for NA and AA resources Discharge planning 06/17 Urine culture pending Plan: CV Q 15 minute checks START Haldol 2.5 mg b.i.d. for continuing AH Continue Seroquel 300 mg q.h.s; DC thorazine prn; pt says she'll use seroquel prn instead Continue Zoloft 150 mg; recently titrated Continue doxepin Continue prazosin Discontinue Vraylar Discontinue Trileptal; just started 2 days ago and no effect yet; replacing with Vraylar History of Med trials: Seroquel Abilifrankiey Risperdone Depakote Reason for continued inpatient stay Substantial Risk for: rapid decompensation Time Spent With Patient Time: Total time managing care of this patient today ____ minutes.
[2024-06-17] MEDS: chlorproMAZINE HCl 25 MG TABLET 50 MG PO (11:52)
[2024-06-17 20:00] VITALS: BP 131/61; PULSE 89; RESP 16; TEMP 36.7; O2SAT 98
[2024-06-17] MEDS: Doxepin HCl 10 MG CAPSULE 20 MG PO (21:28)
[2024-06-17] MEDS: Pramipexole Di-HCL 0.125 MG TABLET PO (21:28)
[2024-06-17] MEDS: Prazosin HCL 1 MG CAPSULE 4 MG PO (21:28)
[2024-06-17] MEDS: QUEtiapine Fumarate 50 MG TABLET 350 MG PO (21:29)
[2024-06-17] MEDS: Mirtazapine 15 MG TABLET PO (21:29)
[2024-06-18 07:00] VITALS: BMI 40.9
[2024-06-18] MEDS: methADONE HCl 20 MG/2 ML ORAL.CONC 100 MG PO (07:47)
[2024-06-18 08:00] VITALS: BP 121/64; PULSE 81; RESP 18; TEMP 36.4; O2SAT 99
[2024-06-18] MEDS: clonazePAM 0.5 MG TABLET PO ×3 (08:32→20:47)
[2024-06-18] MEDS: Sertraline HCL 50 MG TABLET 150 MG PO (08:32)
[2024-06-18] MEDS: busPIRone HCl 5 MG TABLET 15 MG PO ×3 (08:32→20:49)
[2024-06-18] MEDS: QUEtiapine Fumarate 100 MG TABLET PO ×2 (08:32→14:27)
[2024-06-18] MEDS: Lidocaine 4 % Patch ADH..PATCH 1 PATCH TRANSDERMA (08:34)
[2024-06-18] MEDS: Cyclobenzaprine HCl 10 MG TABLET PO ×3 (08:47→20:51)
[2024-06-18] MEDS: Nicotine 21 MG PATCH.TD24 TRANSDERMA (08:47)
--- NOTE | 2024-06-18 11:37 | HO.PSYCHPN ---
Subjective Subjective Date of Service: 06/18/24 Reason For Visit: mood disorder Subjective Notes: Conditional Voluntary Healthcare Proxy: No Guardianship: No Medical Problems Affecting Mental Status: No Interim History: Discharge planned for 06/19. Review of meds, requests, changes made. Pt reporting physical sx of illness including sore throat, congestion, wheezing. Will ask for hospitalist consult, CXR, SARS/Flu/RSV, Throat culture. Pt feels prepared to go. She is overwhelmed with tasks to do to prepare her home for sale, however will contact a realtor to get some assistance. Currently, no SI/HI/AH/VH. No sx of guy, psychosis Medication Compliance: Yes Side effects from medications: No Attending Groups: Intermittent Review of Systems Acute medical concerns: No Medical Review of Systems: changed Review of Systems: Sore throat, congestion, wheeze Review of Systems Review of Systems sore throat, congestion,wheeze Mental Status Exam Mental Status Exam Patient Appearance: Fatigued Patient Orientation: Person, Place, Time and Situation Level of Consciousness: Alert Patient Behavior: Appropriate, Talkative, Cooperative and Good Eye Contact Mood Description: Depressed Affect Description: Flat Patient Cognition Impaired: No Ability to Follow Directions: Good Speech Pattern: Spontaneous Speech Memory Description: Intact Hallucinations: None Delusions: Not Present Thought Process: Rumination Thought Content: positive for Circumstantial, positive for Perseveration and positive for Suicidal Ideation (denies) Depressive Symptoms: Increased Anxiety and Increased Fatigue Judgement: Good Diagnostics Vital Signs (24Hr): Vital Signs - 24 hr 06/17/24 20:00 06/18/24 08:00 Temperature 98.1 F 97.6 F Pulse Rate 89 81 Respiratory Rate 16 18 Blood Pressure 131/61 121/64 Pulse Oximetry 98 99 Oxygen Delivery Method Room Air Room Air BMI result Body Mass Index 38.5 Labs 05/22/24 08:24 Imaging Radiology Impressions: ITS Impressions Lumbar Spine X-Ray 06/07/24 15:00 IMPRESSION: Unremarkable examination. Electronically signed by: Cristy Mathis MD 06/08/2024 07:38 AM EDT Medications Medications Current Medications Acetaminophen (Acetaminophen 325 Mg Tablet) 650 mg PO Q6H PRN PRN Reason: Headache/Pain Mild Scale (1-3) Last Admin: 06/16/24 20:29 Dose: 650 mg Al Hydroxide/Mg Hydroxide (Magnesium Hydrox/Alum Hydrox 30 Ml Oral.Susp) 30 ml PO Q6H PRN PRN Reason: Heartburn/Nausea Albuterol Sulfate (Albuterol Sulfate 90 Mcg 8 Gm Inhaler) 2 puff INHALE Q6H PRN PRN Reason: wheezing Buspirone HCl (Buspirone Hcl 5 Mg Tablet) 15 mg PO TID [facility] Last Admin: 06/18/24 08:32 Dose: 15 mg Chlorpromazine HCl (Chlorpromazine Hcl 25 Mg Tablet) 50 mg PO TID PRN PRN Reason: agitation Last Admin: 06/17/24 11:52 Dose: 50 mg Clonazepam (Clonazepam 0.5 Mg Tablet) 0.5 mg PO TID [facility] Last Admin: 06/18/24 08:32 Dose: 0.5 mg Cyclobenzaprine HCl (Cyclobenzaprine Hcl 10 Mg Tablet) 10 mg PO TID PRN PRN Reason: Back pain Last Admin: 06/18/24 08:47 Dose: 10 mg Doxepin HCl (Doxepin Hcl 10 Mg Capsule) 20 mg PO BEDTIME [facility] Last Admin: 06/17/24 21:28 Dose: 20 mg Hydroxyzine HCl (Hydroxyzine Hcl 25 Mg Tablet) 25 mg PO Q6H PRN PRN Reason: Anxiety Last Admin: 06/11/24 10:46 Dose: 25 mg Ibuprofen (Ibuprofen 800 Mg Tablet) 800 mg PO Q8H PRN PRN Reason: Back pain Last Admin: 06/06/24 21:35 Dose: 800 mg Lidocaine (Lidocaine 4 % Patch Adh..Patch) 1 patch TRANSDERMA DAILY [facility]; Protocol Last Admin: 06/18/24 08:34 Dose: 1 patch Loperamide HCl (Loperamide Hcl 2 Mg Capsule) 4 mg PO Q6H PRN PRN Reason: Diarrhea Last Admin: 06/15/24 17:20 Dose: 4 mg Magnesium Hydroxide (Milk Of Magnesia 30 Ml Oral.Susp) 30 ml PO DAILY PRN PRN Reason: Constipation Methadone HCl (Methadone Hcl 20 Mg/2 Ml Oral.Conc) 100 mg PO DAILY [facility] Last Admin: 06/18/24 07:47 Dose: 100 mg Mirtazapine (Mirtazapine 15 Mg Tablet) 15 mg PO BEDTIME [facility] Last Admin: 06/17/24 21:29 Dose: 15 mg Nicotine (Nicotine 21 Mg Patch.Td24) 21 mg TRANSDERMA DAILY PRN PRN Reason: nicotine cravings Last Admin: 06/18/24 08:47 Dose: 21 mg Nicotine Polacrilex (Nicotine Polacrilex Lozenge 4 Mg Lozenge) 4 mg BUCCAL Q2H PRN PRN Reason: Nicotine Cravings Pramipexole Dihydrochloride (Pramipexole Di-Hcl 0.125 Mg Tablet) 0.125 mg PO BEDTIME [facility] Last Admin: 06/17/24 21:28 Dose: 0.125 mg Prazosin HCl (Prazosin Hcl 1 Mg Capsule) 4 mg PO BEDTIME [facility]; Protocol Last Admin: 06/17/24 21:28 Dose: 4 mg Quetiapine Fumarate (Quetiapine Fumarate 50 Mg Tablet) 50 mg PO TID PRN PRN Reason: anxiety, agitation Last Admin: 05/30/24 20:38 Dose: 50 mg Quetiapine Fumarate (Quetiapine Fumarate 50 Mg Tablet) 350 mg PO BEDTIME [facility] Last Admin: 06/17/24 21:29 Dose: 350 mg Quetiapine Fumarate (Quetiapine Fumarate 100 Mg Tablet) 100 mg PO BID@0900,1400 [facility] Last Admin: 06/18/24 08:32 Dose: 100 mg Sertraline HCl (Sertraline Hcl 50 Mg Tablet) 150 mg PO DAILY [facility] Last Admin: 06/18/24 08:32 Dose: 150 mg Allergies Allergies Allergy/AdvReac Type Severity Reaction Status Date / Time Penicillins Allergy Intermediate HIVES Verified 03/14/24 15:53 Assessment & Plan Assessment & Plan (1) Schizoaffective disorder, bipolar type: Status: Acute Code(s): F25.0 - Schizoaffective disorder, bipolar type (2) Acute stress disorder: Status: Acute Code(s): F43.0 - Acute stress reaction (3) Opioid use disorder: Status: Acute Code(s): F11.90 - Opioid use, unspecified, uncomplicated Plan ASD, PTSD, Recurrent Major Depression, Polysubstance Use Disorder; also manic episodes; AH independent of mood Hospital course: 05/23: Continue current regimen and plans 05/24: Continue current regimen and plan 05/26: EKG as Seroquel prn has been added. 05/28: Ibuprofen prn for back pain Tolerating Trileptal trial 05/29 reviewed history and it seems that patient meets criteria for schizoaffective disorder, bipolar type. Patient reports that she has been quite depressed; she says her mood improved for 1 day and she had less anxiety, attended to ADLs but returned has been present for the past 2 days. She denies any SI. Patient says that the Seroquel and Zoloft were started at [facility]; she says that there she was still depressed but was overall feeling better enough to discharge. She said post discharge she had a manic episode and then got depressed. Reviewed history with patient: Patient reports being sober for 7 years, relapsed this past February when her mother (and then for 2 weeks) in past, while sober she reports history of manic episodes that can last anywhere from 3-7 days; episodes include episodes of talking fast, lots of activity...shopping sprees, buying excessive amount of scratch tickets...mind racing, having a lot of energy, not sleeping at all for 2-3 days and then very little for subsequent days... hanging around friends I should not be with (who shoplifters...) and which resulted in relapse.... Patient reports her friends notice these changes in her behavior. After such an episode, patient gets very depressed. She says this post manic depression is what resulted in this admission to [place]. Patient reports many past hospitalizations for depression often happen after a manic episode; she says some duration of manic episode happens about twice a month. Regarding history of depression, patient reports that medications have been partially helpful but depression remains. -Patient reports that her Mother had Schizoaffective disorder, bipolar type (Schizophrenia with manic episodes). Initially patient was reticent to talk about AVH; however she opened up and reports that daily she experiences AH telling her to pull her hair, to do things to hurt self; if her on people the voice will say that people are talking about her... She thinks that this is real and has a hard time ignoring it; she was however open to considering it might be her mind playing tricks on her because of mental illness. She reports presence of AH independent of mood. Discussed medication management for symptoms and reviewed risks/side-effects of Vraylar and pt willing to start (considered lithium; patient does not remember if past med trials were helpful) will dc Trileptal; just started 2 days ago; no effect yet discussed insomnia; she thinks Trazodone may work if 100mg; will schedule Trazodone and make Seroquel 200mg a prn for continued insomnia (goal to only be on 1 antipsychotic) 05/30 still AH, no changes but no side-effects; still depressed and hard to do ADL's but is forcing herself to shower agrees to increased vraylar; says slept well enough on trazodone; asks for extra PRN trazodone since waking at night. 05/31 Patient reports that mood is better today. She was proud of herself that she went to a group and showered yesterday. She says that auditory hallucinations are the same but is grateful for abating depression. -continue current Vraylar 3 mg; was just started on this dose and hopefully AH will diminish as well. 06/02: DC Trazodone Remeron 15 mg HS Buspirone 10 mg tid Seroquel 200 mg HS 06/04: Increase daytime Seroquel to 75 mg 0900,1400. 06/05: Klonopin 0.5 mg bid 06/08: Pt will use prn Seroquel/Chlorpromazine to assist with sleep as needed. 06/09 Reports that mood is overall better and patient does appear brighter. Auditory hallucinations remain. She said they are not as loud but they are still bothersome and hard to ignore. She agreed to increase Seroquel at bedtime to 300 mg. However she says she has been on Seroquel up to 800 mg and yet Voices remained. 06/10 Patient reports AH feels worse today and she has this paranoid thought that other people are following her and want to hurt her. She was disappointed saying she was initially feeling better but then a peer yelled at her and the voice said that he was trying to kill her; she ran into a room and ever since she has been worried about this. She reports sleeping better with increase Seroquel and does not want to get off Seroquel; she even thinks that Seroquel p.r.n. can replace Thorazine p.r.n.. However auditory hallucinations continue to plague her and she said she thinks on Haldol the voices were diminished. 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 06/12: Inrease HS Seroquel to 350 mg HS 06/13 keep same treatment 06/15: Imodium prn for reports of diarrhea Increase buspirone to 15 mg tid Increase daytime Seroquel to 100 mg bid Addiction consult for NA and AA resources Discharge planning 06/17 Urine culture pending 06/18 Chest xray, throat culture, hospitalist consult-pt reports sore throat, she is wheezing and appears her asthma has exacerbated. Plan: CV Q 15 minute checks START Haldol 2.5 mg b.i.d. for continuing AH Continue Seroquel 300 mg q.h.s; DC thorazine prn; pt says she'll use seroquel prn instead Continue Zoloft 150 mg; recently titrated Continue doxepin Continue prazosin Discontinue Vraylar Discontinue Trileptal; just started 2 days ago and no effect yet; replacing with Vraylar History of Med trials: Seroquel Abilify Risperdone Depakote Reason for continued inpatient stay Substantial Risk for: med/psych decompensation Time Spent With Patient Time: Total time managing care of this patient today ____ minutes.
[2024-06-18 14:17] LABS: Influenza A PCR NEGATIVE (Negative); Influenza B PCR NEGATIVE (Negative); Resp Syncy Virus RNA Qual PCR NEGATIVE (Negative); SARS COV2 PCR INHOUSE NEGATIVE (Negative)
[2024-06-18 17:00] LABS: IDNOW Serial# 58CA691E; Strep A Nucleic Acid Positive (Negative)
--- NOTE | 2024-06-18 17:07 | P.EN_ITS ---
Event Note Date of Service: 06/18/24 Event Note: The patient is a 44-year-old female with a PMH significant for asthma, opiate use disorder, depression, and anxiety who was admitted to [facility] unit for increased depression with SI with plan to overdose. Hospitalist consult for asthma exacerbation. Patient seen and evaluated in her room where she is resting comfortably on bed. Reports has been having increased shortness of breath, difficulty breathing, and nonproductive cough for the past few days. D espite symptoms, patient reports she has not yet used her rescue inhaler. Lungs appear clear to auscultation. For now, patient does not appear to be in acute asthma exacerbation. Patient should first use her rescue albuterol inhaler for symptoms of shortness of breath, wheezing, or difficulty breathing. Will treat cough with guaifenesin. If patient's symptoms persist despite use of rescue inh aler, will re-evaluate and possibly set up with updraft treatments. Time Spent With Patient Time: Total time managing care of this patient today ____ minutes.
[2024-06-18] MEDS: Azithromycin 500 MG TABLET PO (18:35)
[2024-06-18] MEDS: hydrOXYzine HCL 25 MG TABLET PO (18:39)
[2024-06-18 20:00] VITALS: BP 137/69; PULSE 101; RESP 17; TEMP 36.5; O2SAT 96
[2024-06-18 20:45] VITALS: BP 137/69
[2024-06-18] MEDS: Prazosin HCL 1 MG CAPSULE 4 MG PO (20:45)
[2024-06-18] MEDS: Doxepin HCl 10 MG CAPSULE 20 MG PO (20:47)
[2024-06-18] MEDS: QUEtiapine Fumarate 50 MG TABLET 350 MG PO (20:47)
[2024-06-18] MEDS: Ibuprofen 800 MG TABLET PO (20:48)
[2024-06-18] MEDS: Pramipexole Di-HCL 0.125 MG TABLET PO (20:48)
[2024-06-18] MEDS: Acetaminophen 325 MG TABLET 650 MG PO (20:49)
[2024-06-18] MEDS: Throat Lozenge, Medicated LOZENGE 1 LOZENGE MUCOUS MEM (20:49)
[2024-06-19] MEDS: methADONE HCl 20 MG/2 ML ORAL.CONC 100 MG PO (07:38)
[2024-06-19 08:00] VITALS: BP 115/59; PULSE 86; RESP 16; TEMP 36.4; O2SAT 98
[2024-06-19] MEDS: Sertraline HCL 50 MG TABLET 150 MG PO (08:37)
[2024-06-19] MEDS: busPIRone HCl 5 MG TABLET 15 MG PO ×3 (08:37→20:18)
[2024-06-19] MEDS: Nicotine 21 MG PATCH.TD24 TRANSDERMA (08:37)
[2024-06-19] MEDS: Cyclobenzaprine HCl 10 MG TABLET PO ×3 (08:37→20:27)
[2024-06-19] MEDS: Throat Lozenge, Medicated LOZENGE 1 LOZENGE MUCOUS MEM ×3 (08:38→20:27)
[2024-06-19] MEDS: Lidocaine 4 % Patch ADH..PATCH 1 PATCH TRANSDERMA (08:38)
[2024-06-19] MEDS: clonazePAM 0.5 MG TABLET PO ×3 (08:38→20:19)
[2024-06-19] MEDS: Albuterol Sulfate 90 MCG 8 GM INHALER 2 PUFF INHALE ×2 (08:45→14:14)
--- NOTE | 2024-06-19 09:45 | P.PNPSI_ITS ---
Subjective Subjective Date of Service: 06/19/24 Reason For Visit: mood disorder Subjective Notes: Conditional Voluntary Healthcare Proxy: No Guardianship: No Medical Problems Affecting Mental Status: No Interim History: Discharge postponed. Probable DC 06/22. Pt positive for strep. Asthma exacerbated New result +UTI Asked hospitalist to consult regarding inhalers and UTI rx in conjunction with strep. Pt reports feeling ill, fatigued Medication Compliance: Yes Side effects from medications: No Attending Groups: No Review of Systems Acute medical concerns: Yes as noted Medical Review of Systems: unchanged Review of Systems Review of Systems UTI sx strep + asthma exacerbation Mental Status Exam Mental Status Exam Patient Appearance: Fatigued Patient Orientation: Person, Place, Time and Situation Level of Consciousness: Alert Patient Behavior: Appropriate, Talkative, Cooperative and Good Eye Contact Mood Description: Depressed Affect Description: Flat Patient Cognition Impaired: No Ability to Follow Directions: Good Speech Pattern: Spontaneous Speech Memory Description: Intact Hallucinations: None Delusions: Not Present Thought Process: Rumination Thought Content: positive for Circumstantial, positive for Perseveration and positive for Suicidal Ideation (denies) Depressive Symptoms: Increased Anxiety and Increased Fatigue Judgement: Good Diagnostics Vital Signs (24Hr): Vital Signs - 24 hr 06/18/24 20:00 06/18/24 20:45 06/19/24 08:00 Temperature 97.7 F 97.6 F Pulse Rate 101 H 86 Respiratory Rate 17 16 Blood Pressure 137/69 137/69 115/59 L Pulse Oximetry 96 98 Oxygen Delivery Method Room Air Room Air BMI result Body Mass Index 40.9 Labs 05/22/24 08:24 Labs: Laboratory Results - last 48 hr 06/18/24 06/18/24 12:53 Unknown Influenza Type A (PCR) NEGATIVE Influenza Type B (PCR) NEGATIVE RSV RNA Qual (PCR) NEGATIVE SARS-CoV-2 RNA (RT-PCR) NEGATIVE S. pyogenes GrpA BALTAZAR Positive A Imaging Radiology Impressions: ITS Impressions Lumbar Spine X-Ray 06/07/24 15:00 IMPRESSION: Unremarkable examination. Electronically signed by: Cristy Mathis MD 06/08/2024 07:38 AM EDT Chest X-Ray 06/18/24 14:00 IMPRESSION: Prominent interstitial markings, which can be seen in the setting of asthma exacerbation. No organized consolidation. Electronically signed by: Donte Baker DO 06/18/2024 11:56 PM EDT Medications Medications Current Medications Acetaminophen (Acetaminophen 325 Mg Tablet) 650 mg PO Q6H PRN PRN Reason: Headache/Pain Mild Scale (1-3) Last Admin: 06/18/24 20:49 Dose: 650 mg Al Hydroxide/Mg Hydroxide (Magnesium Hydrox/Alum Hydrox 30 Ml Oral.Susp) 30 ml PO Q6H PRN PRN Reason: Heartburn/Nausea Albuterol Sulfate (Albuterol Sulfate 90 Mcg 8 Gm Inhaler) 2 puff INHALE Q6H PRN PRN Reason: wheezing Last Admin: 06/19/24 08:45 Dose: 2 puff Azithromycin (Azithromycin 250 Mg Tablet) 250 mg PO Q24H IJEOMA Benzocaine (Throat Lozenge, Medicated Lozenge) 1 lozenge MUCOUS MEM Q2H PRN PRN Reason: Sore Throat Last Admin: 06/19/24 08:38 Dose: 1 lozenge Buspirone HCl (Buspirone Hcl 5 Mg Tablet) 15 mg PO TID IJEOMA Last Admin: 06/19/24 08:37 Dose: 15 mg Clonazepam (Clonazepam 0.5 Mg Tablet) 0.5 mg PO TID IJEOMA Last Admin: 06/19/24 08:38 Dose: 0.5 mg Cyclobenzaprine HCl (Cyclobenzaprine Hcl 10 Mg Tablet) 10 mg PO TID PRN PRN Reason: Back pain Last Admin: 06/19/24 08:37 Dose: 10 mg Doxepin HCl (Doxepin Hcl 10 Mg Capsule) 20 mg PO BEDTIME [facility] Last Admin: 06/18/24 20:47 Dose: 20 mg Guaifenesin/Dextromethorphan (Guaifenesin Dm 200/20/10 Ml 10 Ml Syrup) 10 ml PO Q4H PRN PRN Reason: Cough Hydroxyzine HCl (Hydroxyzine Hcl 25 Mg Tablet) 25 mg PO Q6H PRN PRN Reason: Anxiety Last Admin: 06/18/24 18:39 Dose: 25 mg Ibuprofen (Ibuprofen 800 Mg Tablet) 800 mg PO Q8H PRN PRN Reason: Back pain Last Admin: 06/18/24 20:48 Dose: 800 mg Lidocaine (Lidocaine 4 % Patch Adh..Patch) 1 patch TRANSDERMA DAILY [facility]; Protocol Last Admin: 06/19/24 08:38 Dose: 1 patch Loperamide HCl (Loperamide Hcl 2 Mg Capsule) 4 mg PO Q6H PRN PRN Reason: Diarrhea Last Admin: 06/15/24 17:20 Dose: 4 mg Magnesium Hydroxide (Milk Of Magnesia 30 Ml Oral.Susp) 30 ml PO DAILY PRN PRN Reason: Constipation Methadone HCl (Methadone Hcl 20 Mg/2 Ml Oral.Conc) 100 mg PO DAILY IJEOMA Last Admin: 06/19/24 07:38 Dose: 100 mg Multi-Ingred Medicated Throat Frederick (Throat Frederick, Medicated 177 Ml Bottle) 1 spray MUCOUS MEM Q2H PRN PRN Reason: Sore Throat Nicotine (Nicotine 21 Mg Patch.Td24) 21 mg TRANSDERMA DAILY PRN PRN Reason: nicotine cravings Last Admin: 06/19/24 08:37 Dose: 21 mg Nicotine Polacrilex (Nicotine Polacrilex Lozenge 4 Mg Lozenge) 4 mg BUCCAL Q2H PRN PRN Reason: Nicotine Cravings Pramipexole Dihydrochloride (Pramipexole Di-Hcl 0.125 Mg Tablet) 0.125 mg PO BEDTIME IJEOMA Last Admin: 06/18/24 20:48 Dose: 0.125 mg Prazosin HCl (Prazosin Hcl 1 Mg Capsule) 4 mg PO BEDTIME [facility]; Protocol Last Admin: 06/18/24 20:45 Dose: 4 mg Quetiapine Fumarate (Quetiapine Fumarate 50 Mg Tablet) 50 mg PO TID PRN PRN Reason: anxiety, agitation Last Admin: 05/30/24 20:38 Dose: 50 mg Quetiapine Fumarate (Quetiapine Fumarate 50 Mg Tablet) 350 mg PO BEDTIME IJEOMA Last Admin: 06/18/24 20:47 Dose: 350 mg Quetiapine Fumarate (Quetiapine Fumarate 100 Mg Tablet) 100 mg PO BID@0900,1400 [facility] Last Admin: 06/18/24 14:27 Dose: 100 mg Sertraline HCl (Sertraline Hcl 50 Mg Tablet) 150 mg PO DAILY [facility] Last Admin: 06/19/24 08:37 Dose: 150 mg Allergies Allergies Allergy/AdvReac Type Severity Reaction Status Date / Time Penicillins Allergy Intermediate HIVES Verified 03/14/24 15:53 Assessment & Plan Assessment & Plan (1) Schizoaffective disorder, bipolar type: Status: Acute Code(s): F25.0 - Schizoaffective disorder, bipolar type (2) Acute stress disorder: Status: Acute Code(s): F43.0 - Acute stress reaction (3) Opioid use disorder: Status: Acute Code(s): F11.90 - Opioid use, unspecified, uncomplicated Plan ASD, PTSD, Recurrent Major Depression, Polysubstance Use Disorder; also manic episodes; AH independent of mood Hospital course: 05/23: Continue current regimen and plans 05/24: Continue current regimen and plan 05/26: EKG as Seroquel prn has been added. 05/28: Ibuprofen prn for back pain Tolerating Trileptal trial 05/29 reviewed history and it seems that patient meets criteria for schizoaffective disorder, bipolar type. Patient reports that she has been quite depressed; she says her mood improved for 1 day and she had less anxiety, attended to ADLs but returned has been present for the past 2 days. She denies any SI. Patient says that the Seroquel and Zoloft were started at [facility]; she says that there she was still depressed but was overall feeling better enough to discharge. She said post discharge she had a manic episode and then got depressed. Reviewed history with patient: Patient reports being sober for 7 years, relapsed this past February when her mother (and then for 2 weeks) in past, while sober she reports history of manic episodes that can last anywhere from 3-7 days; episodes include episodes of talking fast, lots of activity...shopping sprees, buying excessive amount of scratch tickets...mind racing, having a lot of energy, not sleeping at all for 2-3 days and then very little for subsequent days... hanging around friends I should not be with (who shoplifters...) and which resulted in relapse.... Patient reports her friends notice these changes in her behavior. After such an episode, patient gets very depressed. She says this post manic depression is what resulted in this admission to [facility]. Patient reports many past hospitalizations for depression often happen after a manic episode; she says some duration of manic episode happens about twice a month. Regarding history of depression, patient reports that medications have been partially helpful but depression remains. -Patient reports that her Mother had Schizoaffective disorder, bipolar type (Schizophrenia with manic episodes). Initially patient was reticent to talk about AVH; however she opened up and reports that daily she experiences AH telling her to pull her hair, to do things to hurt self; if her on people the voice will say that people are talking about her... She thinks that this is real and has a hard time ignoring it; she was however open to considering it might be her mind playing tricks on her because of mental illness. She reports presence of AH independent of mood. Discussed medication management for symptoms and reviewed risks/side-effects of Vraylar and pt willing to start (considered lithium; patient does not remember if past med trials were helpful) will dc Trileptal; just started 2 days ago; no effect yet discussed insomnia; she thinks Trazodone may work if 100mg; will schedule Trazodone and make Seroquel 200mg a prn for continued insomnia (goal to only be on 1 antipsychotic) 05/30 still AH, no changes but no side-effects; still depressed and hard to do ADL's but is forcing herself to shower agrees to increased vraylar; says slept well enough on trazodone; asks for extra PRN trazodone since waking at night. 05/31 Patient reports that mood is better today. She was proud of herself that she went to a group and showered yesterday. She says that auditory hallucinations are the same but is grateful for abating depression. -continue current Vraylar 3 mg; was just started on this dose and hopefully AH will diminish as well. 06/02: DC Trazodone Remeron 15 mg HS Buspirone 10 mg tid Seroquel 200 mg HS 06/04: Increase daytime Seroquel to 75 mg 0900,1400. 06/05: Klonopin 0.5 mg bid 06/08: Pt will use prn Seroquel/Chlorpromazine to assist with sleep as needed. 06/09 Reports that mood is overall better and patient does appear brighter. Auditory hallucinations remain. She said they are not as loud but they are still bothersome and hard to ignore. She agreed to increase Seroquel at bedtime to 300 mg. However she says she has been on Seroquel up to 800 mg and yet Voices remained. 06/10 Patient reports AH feels worse today and she has this paranoid thought that other people are following her and want to hurt her. She was disappointed saying she was initially feeling better but then a peer yelled at her and the voice said that he was trying to kill her; she ran into a room and ever since she has been worried about this. She reports sleeping better with increase Seroquel and does not want to get off Seroquel; she even thinks that Seroquel p.r.n. can replace Thorazine p.r.n.. However auditory hallucinations continue to plague her and she said she thinks on Haldol the voices were diminished. [employer] Curer reviewed risks/side effects of antipsychotics and especially being on 2 antipsychotics, which patient understands but says she wants to try because of how problematic the voices are. 06/12: Inrease HS Seroquel to 350 mg HS 06/13 keep same treatment 06/15: Imodium prn for reports of diarrhea Increase buspirone to 15 mg tid Increase daytime Seroquel to 100 mg bid Addiction consult for NA and AA resources Discharge planning 06/17 Urine culture pending 06/19 Discharge postponed, probable DC 06/22. Continue rx for strep New result +UTI-hospitalist consulted for abx. Asthma exacerbation-hospitalist consult for inhaler update. Plan: CV Q 15 minute checks START Haldol 2.5 mg b.i.d. for continuing AH Continue Seroquel 300 mg q.h.s; DC thorazine prn; pt says she'll use seroquel prn instead Continue Zoloft 150 mg; recently titrated Continue doxepin Continue prazosin Discontinue Vraylar Discontinue Trileptal; just started 2 days ago and no effect yet; replacing with Vraylar History of Med trials: Seroquel Ayde Risperdone Depakote Reason for continued inpatient stay Substantial Risk for: med/psych decompensation Time Spent With Patient Time: Total time managing care of this patient today ____ minutes.
[2024-06-19] MEDS: Azithromycin 250 MG TABLET PO (10:34)
[2024-06-19] MEDS: QUEtiapine Fumarate 100 MG TABLET PO ×2 (10:35→14:16)
[2024-06-19] MEDS: Ibuprofen 800 MG TABLET PO (14:15)
[2024-06-19 19:49] VITALS: BP 136/78; PULSE 86; RESP 15; TEMP 36.6; O2SAT 96
--- NOTE | 2024-06-19 19:51 | P.EN_ITS ---
Event Note Date of Service: 06/19/24 Event Note: Patient is a 44-year-old female with a PMH significant for asthma, opiate use disorder, depression, and anxiety who was admitted to [facility] for increased depression with SI with plan to overdose. 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 Urine culture positive for coag-negative Staphylococcus and coryn ebacterium species. Will treat UTI with Bactrim DS q12h x3 days. Time Spent With Patient Time: Total time managing care of this patient today ____ minutes.
[2024-06-19] MEDS: QUEtiapine Fumarate 50 MG TABLET 350 MG PO (20:17)
[2024-06-19] MEDS: Doxepin HCl 10 MG CAPSULE 20 MG PO (20:18)
[2024-06-19] MEDS: Pramipexole Di-HCL 0.125 MG TABLET PO (20:18)
[2024-06-19] MEDS: Prazosin HCL 1 MG CAPSULE 4 MG PO (20:18)
[2024-06-19] MEDS: Sulfamethox/Trimeth 800/160 TABLET 1 TAB PO (20:27)
[2024-06-20] MEDS: Throat Spray, Medicated 177 ML BOTTLE 1 SPRAY MUCOUS MEM (00:30)
[2024-06-20] MEDS: Throat Lozenge, Medicated LOZENGE 1 LOZENGE MUCOUS MEM ×5 (00:33→21:17)
[2024-06-20] MEDS: methADONE HCl 20 MG/2 ML ORAL.CONC 100 MG PO (07:54)
[2024-06-20 08:00] VITALS: BP 115/62; PULSE 90; RESP 22; TEMP 36.6; O2SAT 98
[2024-06-20] MEDS: Albuterol/Iprat 2.5/0.5MG 3 ML AMPUL.NEB INHALE ×2 (09:24→14:51)
[2024-06-20 09:25] VITALS: PULSE 98; RESP 19; O2SAT 98
[2024-06-20] MEDS: Nicotine 21 MG PATCH.TD24 TRANSDERMA (09:45)
[2024-06-20] MEDS: Lidocaine 4 % Patch ADH..PATCH 1 PATCH TRANSDERMA (09:46)
[2024-06-20] MEDS: QUEtiapine Fumarate 100 MG TABLET PO ×2 (09:47→14:21)
[2024-06-20] MEDS: Azithromycin 250 MG TABLET PO (09:47)
[2024-06-20] MEDS: Cyclobenzaprine HCl 10 MG TABLET PO ×4 (09:47→21:24)
[2024-06-20] MEDS: clonazePAM 0.5 MG TABLET PO ×3 (09:47→21:07)
[2024-06-20] MEDS: Sulfamethox/Trimeth 800/160 TABLET 1 TAB PO (09:48)
[2024-06-20] MEDS: busPIRone HCl 5 MG TABLET 15 MG PO ×3 (09:48→21:07)
[2024-06-20] MEDS: Sertraline HCL 50 MG TABLET 150 MG PO (09:48)
--- NOTE | 2024-06-20 10:27 | P.PNPSI_ITS ---
Subjective Subjective Date of Service: 06/20/24 Reason For Visit: mood disorder Subjective Notes: Conditional Voluntary Healthcare Proxy: No Guardianship: No Medical Problems Affecting Mental Status: Yes (strep and asthma exacerbation) Interim History: 44 yo HF was ready for dc until dx strep and asthma exacerbation- over today has required more intervention with add on flovent and steroid inhaler and start of steroid- also patient's anxiety has increased as well - tried prn of hydroxyzine 25mg no effect will try 50mg - oh also slight patch of hive on foot- was seen and evaluated by PA extra consult appreciated around ? need for steroid for asthma Medication Compliance: Yes Side effects from medications: Yes (? inc anxiety from steroid or asthma exacerbation vss) Attending Groups: No Review of Systems Acute medical concerns: Yes Review of Systems: see above Mental Status Exam Mental Status Exam Patient Appearance: Appropriate Patient Orientation: Person, Place and Situation Level of Consciousness: Awake, Appropriate and Alert Patient Behavior: Appropriate and Cooperative Mood Description: Anxious Affect Description: Appropriate Patient Cognition Impaired: No Ability to Follow Directions: Good Speech Pattern: Clear Hallucinations: None Delusions: Not Present Thought Process: Intact and Goal Oriented Depressive Symptoms: Increased Anxiety Judgement: Fair Diagnostics Vital Signs (24Hr): Vital Signs - 24 hr 06/19/24 19:49 06/20/24 09:25 Temperature 97.8 F Pulse Rate 86 98 Respiratory Rate 15 19 Blood Pressure 136/78 Pulse Oximetry 96 BMI result Body Mass Index 40.9 Labs 05/22/24 08:24 Labs: Laboratory Results - last 48 hr 06/18/24 06/18/24 12:53 Unknown Influenza Type A (PCR) NEGATIVE Influenza Type B (PCR) NEGATIVE RSV RNA Qual (PCR) NEGATIVE SARS-CoV-2 RNA (RT-PCR) NEGATIVE S. pyogenes GrpA BALTAZAR Positive A Imaging Radiology Impressions: ITS Impressions Lumbar Spine X-Ray 06/07/24 15:00 IMPRESSION: Unremarkable examination. Electronically signed by: Cristy Mathis MD 06/08/2024 07:38 AM EDT RP Chest X-Ray 06/18/24 14:00 IMPRESSION: Prominent interstitial markings, which can be seen in the setting of asthma exacerbation. No organized consolidation. Electronically signed by: Donte Baker DO 06/18/2024 11:56 PM EDT RP Medications Medications Current Medications Acetaminophen (Acetaminophen 325 Mg Tablet) 650 mg PO Q6H PRN PRN Reason: Headache/Pain Mild Scale (1-3) Last Admin: 06/18/24 20:49 Dose: 650 mg Al Hydroxide/Mg Hydroxide (Magnesium Hydrox/Alum Hydrox 30 Ml Oral.Susp) 30 ml PO Q6H PRN PRN Reason: Heartburn/Nausea Albuterol Sulfate (Albuterol Sulfate 90 Mcg 8 Gm Inhaler) 2 puff INHALE Q6H PRN PRN Reason: wheezing Last Admin: 06/19/24 14:14 Dose: 2 puff Albuterol/Ipratropium (Albuterol/Iprat 2.5/0.5mg 3 Ml Ampul.Neb) 3 ml INHALE RQ4H WHILE AWAKE PRN PRN Reason: sx exacerbation Azithromycin (Azithromycin 250 Mg Tablet) 250 mg PO Q24H IJEOMA Last Admin: 06/20/24 09:47 Dose: 250 mg Benzocaine (Throat Lozenge, Medicated Lozenge) 1 lozenge MUCOUS MEM Q2H PRN PRN Reason: Sore Throat Last Admin: 06/20/24 09:47 Dose: 1 lozenge Buspirone HCl (Buspirone Hcl 5 Mg Tablet) 15 mg PO TID IJEOMA Last Admin: 06/20/24 09:48 Dose: 15 mg Clonazepam (Clonazepam 0.5 Mg Tablet) 0.5 mg PO TID IJEOMA Last Admin: 06/20/24 09:47 Dose: 0.5 mg Cyclobenzaprine HCl (Cyclobenzaprine Hcl 10 Mg Tablet) 10 mg PO TID PRN PRN Reason: Back pain Last Admin: 06/20/24 09:47 Dose: 10 mg Doxepin HCl (Doxepin Hcl 10 Mg Capsule) 20 mg PO BEDTIME IJEOMA Last Admin: 06/19/24 20:18 Dose: 20 mg Guaifenesin/Dextromethorphan (Guaifenesin Dm 200/20/10 Ml 10 Ml Syrup) 10 ml PO Q4H PRN PRN Reason: Cough Hydroxyzine HCl (Hydroxyzine Hcl 25 Mg Tablet) 25 mg PO Q6H PRN PRN Reason: Anxiety Last Admin: 06/18/24 18:39 Dose: 25 mg Ibuprofen (Ibuprofen 800 Mg Tablet) 800 mg PO Q8H PRN PRN Reason: Back pain Last Admin: 06/19/24 14:15 Dose: 800 mg Lidocaine (Lidocaine 4 % Patch Adh..Patch) 1 patch TRANSDERMA DAILY IJEOMA; Protocol Last Admin: 06/20/24 09:46 Dose: 1 patch Loperamide HCl (Loperamide Hcl 2 Mg Capsule) 4 mg PO Q6H PRN PRN Reason: Diarrhea Last Admin: 06/15/24 17:20 Dose: 4 mg Magnesium Hydroxide (Milk Of Magnesia 30 Ml Oral.Susp) 30 ml PO DAILY PRN PRN Reason: Constipation Methadone HCl (Methadone Hcl 20 Mg/2 Ml Oral.Conc) 100 mg PO DAILY IJEOMA Last Admin: 06/20/24 07:54 Dose: 100 mg Multi-Ingred Medicated Throat [place] (Throat [place], Medicated 177 Ml Bottle) 1 spray MUCOUS MEM Q2H PRN PRN Reason: Sore Throat Last Admin: 06/20/24 00:30 Dose: 1 spray Nicotine (Nicotine 21 Mg Patch.Td24) 21 mg TRANSDERMA DAILY PRN PRN Reason: nicotine cravings Last Admin: 06/20/24 09:45 Dose: 21 mg Nicotine Polacrilex (Nicotine Polacrilex Lozenge 4 Mg Lozenge) 4 mg BUCCAL Q2H PRN PRN Reason: Nicotine Cravings Pramipexole Dihydrochloride (Pramipexole Di-Hcl 0.125 Mg Tablet) 0.125 mg PO BEDTIME IJEOMA Last Admin: 06/19/24 20:18 Dose: 0.125 mg Prazosin HCl (Prazosin Hcl 1 Mg Capsule) 4 mg PO BEDTIME IJEOMA; Protocol Last Admin: 06/19/24 20:18 Dose: 4 mg Quetiapine Fumarate (Quetiapine Fumarate 50 Mg Tablet) 50 mg PO TID PRN PRN Reason: anxiety, agitation Last Admin: 05/30/24 20:38 Dose: 50 mg Quetiapine Fumarate (Quetiapine Fumarate 50 Mg Tablet) 350 mg PO BEDTIME IJEOMA Last Admin: 06/19/24 20:17 Dose: 350 mg Quetiapine Fumarate (Quetiapine Fumarate 100 Mg Tablet) 100 mg PO BID@0900,1400 IJEOMA Last Admin: 06/20/24 09:47 Dose: 100 mg Sertraline HCl (Sertraline Hcl 50 Mg Tablet) 150 mg PO DAILY IJEOMA Last Admin: 06/20/24 09:48 Dose: 150 mg Trimethoprim/Sulfamethoxazole (Sulfamethox/Trimeth 800/160 Tablet) 1 tab PO Q12H IJEOMA Stop: 06/22/24 19:59 Last Admin: 06/20/24 09:48 Dose: 1 tab Allergies Allergies Allergy/AdvReac Type Severity Reaction Status Date / Time Penicillins Allergy Intermediate HIVES Verified 03/14/24 15:53 Assessment & Plan Assessment & Plan (1) Schizoaffective disorder, bipolar type: Status: Acute Code(s): F25.0 - Schizoaffective disorder, bipolar type (2) Acute stress disorder: Status: Acute Code(s): F43.0 - Acute stress reaction (3) Opioid use disorder: Status: Acute Code(s): F11.90 - Opioid use, unspecified, uncomplicated Plan ASD, PTSD, Recurrent Major Depression, Polysubstance Use Disorder; also manic episodes; AH independent of mood Hospital course: 05/23: Continue current regimen and plans 05/24: Continue current regimen and plan 05/26: EKG as Seroquel prn has been added. 05/28: Ibuprofen prn for back pain Tolerating Trileptal trial 05/29 reviewed history and it seems that patient meets criteria for schizoaffective disorder, bipolar type. Patient reports that she has been quite depressed; she says her mood improved for 1 day and she had less anxiety, attended to ADLs but returned has been present for the past 2 days. She denies any SI. Patient says that the Seroquel and Zoloft were started at [facility]; she says that there she was still depressed but was overall feeling better enough to discharge. She said post discharge she had a manic episode and then got depressed. Reviewed history with patient: Patient reports being sober for 7 years, relapsed this past February when her mother (and then for 2 weeks) in past, while sober she reports history of manic episodes that can last anywhere from 3-7 days; episodes include episodes of talking fast, lots of activity...shopping sprees, buying excessive amount of scratch tickets...mind racing, having a lot of energy, not sleeping at all for 2-3 days and then very little for subsequent days... hanging around friends I should not be with (who shoplifters...) and which resulted in relapse.... Patient reports her friends notice these changes in her behavior. After such an episode, patient gets very depressed. She says this post manic depression is what resulted in this admission to [facility]. Patient reports many past hospitalizations for depression often happen after a manic episode; she says some duration of manic episode happens about twice a month. Regarding history of depression, patient reports that medications have been partially helpful but depression remains. -Patient reports that her Mother had Schizoaffective disorder, bipolar type (Schizophrenia with manic episodes). Initially patient was reticent to talk about AVH; however she opened up and reports that daily she experiences AH telling her to pull her hair, to do things to hurt self; if her on people the voice will say that people are talking about her... She thinks that this is real and has a hard time ignoring it; she was however open to considering it might be her mind playing tricks on her because of mental illness. She reports presence of AH independent of mood. Discussed medication management for symptoms and reviewed risks/side-effects of Vraylar and pt willing to start (considered lithium; patient does not remember if past med trials were helpful) will dc Trileptal; just started 2 days ago; no effect yet discussed insomnia; she thinks Trazodone may work if 100mg; will schedule Trazodone and make Seroquel 200mg a prn for continued insomnia (goal to only be on 1 antipsychotic) 05/30 still AH, no changes but no side-effects; still depressed and hard to do ADL's but is forcing herself to shower agrees to increased vraylar; says slept well enough on trazodone; asks for extra PRN trazodone since waking at night. 05/31 Patient reports that mood is better today. She was proud of herself that she went to a group and showered yesterday. She says that auditory hallucinations are the same but is grateful for abating depression. -continue current Vraylar 3 mg; was just started on this dose and hopefully AH will diminish as well. 06/02: DC Trazodone Remeron 15 mg HS Buspirone 10 mg tid Seroquel 200 mg HS 06/04: Increase daytime Seroquel to 75 mg 0900,1400. 06/05: Klonopin 0.5 mg bid 06/08: Pt will use prn Seroquel/Chlorpromazine to assist with sleep as needed. 06/09 Reports that mood is overall better and patient does appear brighter. Auditory hallucinations remain. She said they are not as loud but they are still bothersome and hard to ignore. She agreed to increase Seroquel at bedtime to 300 mg. However she says she has been on Seroquel up to 800 mg and yet Voices remained. 06/10 Patient reports AH feels worse today and she has this paranoid thought that other people are following her and want to hurt her. She was disappointed saying she was initially feeling better but then a peer yelled at her and the voice said that he was trying to kill her; she ran into a room and ever since she has been worried about this. She reports sleeping better with increase Seroquel and does not want to get off Seroquel; she even thinks that Seroquel p.r.n. can replace Thorazine p.r.n.. However auditory hallucinations continue to plague her and she said she thinks on Haldol the voices were diminished. [employer] reviewed risks/side effects of antipsychotics and especially being on 2 antipsychotics, which patient understands but says she wants to try because of how problematic the voices are. 06/12: Inrease HS Seroquel to 350 mg HS 06/13 keep same treatment 06/15: Imodium prn for reports of diarrhea Increase buspirone to 15 mg tid Increase daytime Seroquel to 100 mg bid Addiction consult for NA and AA resources Discharge planning 06/17 Urine culture pending 06/19 Discharge postponed, probable DC 06/22. Continue rx for strep New result +UTI-hospitalist consulted for abx. Asthma exacerbation-hospitalist consult for inhaler update. 06/20- on abiotics , inhaler nebulizer and now PO steroid for asthma exacerbation in setting of strep- also anxiety inc given prn hydroxyzine on many other meds loathe to inc or add anything further at this time Plan: CV Q 15 minute checks START Haldol 2.5 mg b.i.d. for continuing AH Continue Seroquel 300 mg q.h.s; DC thorazine prn; pt says she'll use seroquel prn instead Continue Zoloft 150 mg; recently titrated Continue doxepin Continue prazosin Discontinue Vraylar Discontinue Trileptal; just started 2 days ago and no effect yet; replacing with Vraylar History of Med trials: Seroquel Ayde Risperdone Depakote Patient educated on: medication risk/benefits and medical condition Informed Consent: understands Reason for continued inpatient stay Substantial Risk for: rapid decompensation and med/psych decompensation Time Spent With Patient Time: Total time managing care of this patient today ____ minutes.
[2024-06-20] MEDS: hydrOXYzine HCL 25 MG TABLET PO ×2 (11:13→17:00)
--- NOTE | 2024-06-20 14:06 | PM.EVENT ---
Event Note Date of Service: 06/20/24 Event Note: Pt seen in follow up for wheezing. was diagnosed with strep throat on 06/18 and was started on azithromycin due to pcn allergy. She also grew coag negative staph and cornebacteriem (10k-50k isolates) and then also started on bactrim. Coag negative staph in urine does not require treatment and cornebacterium at such a low count should also not require treatment but should effectively be treated by azithromycin. Bactrim discontinued. Pt continues to experience wheezing despite albuterol use. She states she uses a flovent inhaler at home but this was not continued on admission. Lungs with bilateral wheezing. She states sob and wheezing ongoing for about 3 days. Was negative for covid/flu/rsv at the time. She also has a rash on the dorsum of the left foot. Well circumscribed, flat, erythematous and pruritus per patient. Remainder of skin with out any rash. No warmth. Non blanching. Suspect nummular eczema Plan: DC bactrim. Complete course azithromycin as ordered Add prednisone 40mg daily x 5 doses for acute asthma exacerbation Resume flovent Continue albuterol/nebs prn Betamethasone dip aug BID until rash resolves, then dc for nummular eczema. This is not cellulitis nor hives. Less likely fungal. Time Spent With Patient Time: Total time managing care of this patient today ____ minutes.
[2024-06-20] MEDS: Magnesium Hydrox/Alum Hydrox 30 ML ORAL.SUSP PO (14:24)
[2024-06-20] MEDS: predniSONE 20 MG TABLET 40 MG PO (14:30)
[2024-06-20] MEDS: Albuterol Sulfate 90 MCG 8 GM INHALER 2 PUFF INHALE (14:30)
[2024-06-20 14:49] VITALS: PULSE 87; RESP 22; O2SAT 96
[2024-06-20] MEDS: Betamethasone Dip Aug 0.05% Cr 15 GM TUBE 1 APPL TOPICAL ×2 (16:49→21:18)
--- NOTE | 2024-06-20 18:24 | PC.RT ---
RT called for svn x 1. Pt awake and coop, eating dinner. LS clear/dim bilat, spo2 98% on RA, pt denies any distress. Pt had recieved 2 prn svn, and also has scheduled albuterol MDI. Nurse aware, MDI scheduled 20 mins after one time neb.
[2024-06-20] MEDS: QUEtiapine Fumarate 50 MG TABLET PO (18:36)
[2024-06-20 20:00] VITALS: BP 148/71; PULSE 103; RESP 18; TEMP 36.7; O2SAT 97
[2024-06-20] MEDS: QUEtiapine Fumarate 50 MG TABLET 350 MG PO (21:06)
[2024-06-20] MEDS: Pramipexole Di-HCL 0.125 MG TABLET PO (21:07)
[2024-06-20] MEDS: Doxepin HCl 10 MG CAPSULE 20 MG PO (21:07)
[2024-06-20 21:17] VITALS: BP 148/71
[2024-06-20] MEDS: Prazosin HCL 1 MG CAPSULE 4 MG PO (21:17)
[2024-06-20] MEDS: Fluticasone Propionate 100 MCG BLST.W.DEV 2 PUFF INHALE (21:27)
[2024-06-21] MEDS: Albuterol Sulfate 90 MCG 8 GM INHALER 2 PUFF INHALE ×2 (06:26→12:57)
[2024-06-21] MEDS: methADONE HCl 20 MG/2 ML ORAL.CONC 100 MG PO (07:43)
[2024-06-21 08:00] VITALS: BP 133/64; PULSE 99; RESP 16; TEMP 36.6; O2SAT 98
[2024-06-21] MEDS: busPIRone HCl 5 MG TABLET 15 MG PO ×3 (08:28→18:37)
[2024-06-21] MEDS: Throat Lozenge, Medicated LOZENGE 1 LOZENGE MUCOUS MEM ×4 (08:29→21:37)
[2024-06-21] MEDS: Cyclobenzaprine HCl 10 MG TABLET PO ×3 (08:29→21:28)
[2024-06-21] MEDS: Sertraline HCL 50 MG TABLET 150 MG PO (08:29)
[2024-06-21] MEDS: predniSONE 20 MG TABLET 40 MG PO (08:29)
[2024-06-21] MEDS: Azithromycin 250 MG TABLET PO (08:30)
[2024-06-21] MEDS: Fluticasone Propionate 100 MCG BLST.W.DEV 2 PUFF INHALE ×2 (08:31→18:46)
[2024-06-21] MEDS: Betamethasone Dip Aug 0.05% Cr 15 GM TUBE 1 APPL TOPICAL ×2 (08:31→18:09)
[2024-06-21] MEDS: clonazePAM 0.5 MG TABLET PO ×3 (08:31→18:37)
[2024-06-21] MEDS: Milk of Magnesia 30 ML ORAL.SUSP PO (08:31)
[2024-06-21] MEDS: QUEtiapine Fumarate 100 MG TABLET PO ×2 (08:33→14:37)
--- NOTE | 2024-06-21 10:52 | P.PNPSI_ITS ---
Subjective Subjective Date of Service: 06/21/24 Reason For Visit: mood disorder Subjective Notes: Conditional Voluntary Healthcare Proxy: No Guardianship: No Medical Problems Affecting Mental Status: Yes (asthma with strep) Interim History: 44 yo co anxiety and sweating/chills- discussed getting cxr to r/o pneumonia- pt may just be keyed up on steroid- po started for ongoing asthma exacerbation- Medication Compliance: Yes Side effects from medications: Yes Attending Groups: Intermittent Review of Systems Acute medical concerns: Yes cxr to r/o pneumonia Medical Review of Systems: changed (lesion on foot improved today, ) Mental Status Exam Mental Status Exam Patient Appearance: Well Grooomed and Appropriate Patient Orientation: Person, Place, Time and Situation Level of Consciousness: Awake and Alert Patient Behavior: Talkative Mood Description: Anxious Affect Description: Blunted Patient Cognition Impaired: No Ability to Follow Directions: Fair Speech Pattern: Clear Hallucinations: None Delusions: Not Present Thought Process: Intact and Goal Oriented Thought Content: positive for Intact Depressive Symptoms: Increased Anxiety Abnormal Motor Activity Signs and Symptoms: Restlessness Judgement: Fair Diagnostics Vital Signs (24Hr): Vital Signs - 24 hr 06/20/24 14:49 06/20/24 20:00 06/20/24 21:17 Temperature 98.0 F Pulse Rate 87 103 H Respiratory Rate 22 H 18 Blood Pressure 148/71 H 148/71 H Pulse Oximetry 97 Oxygen Delivery Method Room Air 06/21/24 08:00 Temperature 97.8 F Pulse Rate 99 Respiratory Rate 16 Blood Pressure 133/64 Pulse Oximetry 98 Oxygen Delivery Method Room Air BMI result Body Mass Index 40.9 Labs 05/22/24 08:24 Imaging Radiology Impressions: ITS Impressions Lumbar Spine X-Ray 06/07/24 15:00 IMPRESSION: Unremarkable examination. Electronically signed by: Cristy Mathis MD 06/08/2024 07:38 AM EDT RP Chest X-Ray 06/18/24 14:00 IMPRESSION: Prominent interstitial markings, which can be seen in the setting of asthma exacerbation. No organized consolidation. Electronically signed by: Donte Baker DO 06/18/2024 11:56 PM EDT RP 06/21 repeat xray showing no consolidation either but may have inflammatory process Medications Medications Current Medications Acetaminophen (Acetaminophen 325 Mg Tablet) 650 mg PO Q6H PRN PRN Reason: Headache/Pain Mild Scale (1-3) Last Admin: 06/18/24 20:49 Dose: 650 mg Al Hydroxide/Mg Hydroxide (Magnesium Hydrox/Alum Hydrox 30 Ml Oral.Susp) 30 ml PO Q6H PRN PRN Reason: Heartburn/Nausea Last Admin: 06/20/24 14:24 Dose: 30 ml Albuterol Sulfate (Albuterol Sulfate 90 Mcg 8 Gm Inhaler) 2 puff INHALE RQ6H [facility] Last Admin: 06/21/24 02:55 Dose: Not Given Azithromycin (Azithromycin 250 Mg Tablet) 250 mg PO Q24H [facility] Last Admin: 06/21/24 08:30 Dose: 250 mg Benzocaine (Throat Lozenge, Medicated Lozenge) 1 lozenge MUCOUS MEM Q2H PRN PRN Reason: Sore Throat Last Admin: 06/21/24 08:29 Dose: 1 lozenge Betamethasone Dipropion Augmented (Betamethasone Dip Aug 0.05% Cr 15 Gm Tube) 1 appl TOPICAL BID [facility]; Protocol Last Admin: 06/21/24 08:31 Dose: 1 appl Buspirone HCl (Buspirone Hcl 5 Mg Tablet) 15 mg PO TID [facility] Last Admin: 06/21/24 08:28 Dose: 15 mg Clonazepam (Clonazepam 0.5 Mg Tablet) 0.5 mg PO TID [facility] Last Admin: 06/21/24 08:31 Dose: 0.5 mg Cyclobenzaprine HCl (Cyclobenzaprine Hcl 10 Mg Tablet) 10 mg PO TID PRN PRN Reason: Back pain Last Admin: 06/21/24 08:29 Dose: 10 mg Doxepin HCl (Doxepin Hcl 10 Mg Capsule) 20 mg PO BEDTIME [facility] Last Admin: 06/20/24 21:07 Dose: 20 mg Fluticasone Propionate (Fluticasone Propionate 100 Mcg Blst.W.Dev) 2 puff INHALE RBID [facility] Last Admin: 06/21/24 08:31 Dose: 2 puff Guaifenesin/Dextromethorphan (Guaifenesin Dm 200/20/10 Ml 10 Ml Syrup) 10 ml PO Q4H PRN PRN Reason: Cough Hydroxyzine HCl (Hydroxyzine Hcl 50 Mg Tablet) 50 mg PO Q4H PRN PRN Reason: Anxiety Ibuprofen (Ibuprofen 800 Mg Tablet) 800 mg PO Q8H PRN PRN Reason: Back pain Last Admin: 06/19/24 14:15 Dose: 800 mg Lidocaine (Lidocaine 4 % Patch Adh..Patch) 1 patch TRANSDERMA DAILY [facility]; Protocol Last Admin: 06/20/24 09:46 Dose: 1 patch Loperamide HCl (Loperamide Hcl 2 Mg Capsule) 4 mg PO Q6H PRN PRN Reason: Diarrhea Last Admin: 06/15/24 17:20 Dose: 4 mg Magnesium Hydroxide (Milk Of Magnesia 30 Ml Oral.Susp) 30 ml PO DAILY PRN PRN Reason: Constipation Last Admin: 06/21/24 08:31 Dose: 30 ml Methadone HCl (Methadone Hcl 20 Mg/2 Ml Oral.Conc) 100 mg PO DAILY [facility] Last Admin: 06/21/24 07:43 Dose: 100 mg Multi-Ingred Medicated Throat [place] (Throat [place], Medicated 177 Ml Bottle) 1 spray MUCOUS MEM Q2H PRN PRN Reason: Sore Throat Last Admin: 06/20/24 00:30 Dose: 1 spray Nicotine (Nicotine 21 Mg Patch.Td24) 21 mg TRANSDERMA DAILY PRN PRN Reason: nicotine cravings Last Admin: 06/20/24 09:45 Dose: 21 mg Nicotine Polacrilex (Nicotine Polacrilex Lozenge 4 Mg Lozenge) 4 mg BUCCAL Q2H PRN PRN Reason: Nicotine Cravings Pramipexole Dihydrochloride (Pramipexole Di-Hcl 0.125 Mg Tablet) 0.125 mg PO BEDTIME [facility] Last Admin: 06/20/24 21:07 Dose: 0.125 mg Prazosin HCl (Prazosin Hcl 1 Mg Capsule) 4 mg PO BEDTIME [facility]; Protocol Last Admin: 06/20/24 21:17 Dose: 4 mg Prednisone (Prednisone 20 Mg Tablet) 40 mg PO DAILY [facility] Stop: 06/24/24 09:01 Last Admin: 06/21/24 08:29 Dose: 40 mg Quetiapine Fumarate (Quetiapine Fumarate 50 Mg Tablet) 50 mg PO TID PRN PRN Reason: anxiety, agitation Last Admin: 06/20/24 18:36 Dose: 50 mg Quetiapine Fumarate (Quetiapine Fumarate 50 Mg Tablet) 350 mg PO BEDTIME [facility] Last Admin: 06/20/24 21:06 Dose: 350 mg Quetiapine Fumarate (Quetiapine Fumarate 100 Mg Tablet) 100 mg PO BID@0900,1400 [facility] Last Admin: 06/21/24 08:33 Dose: 100 mg Sertraline HCl (Sertraline Hcl 50 Mg Tablet) 150 mg PO DAILY [facility] Last Admin: 06/21/24 08:29 Dose: 150 mg Allergies Allergies Allergy/AdvReac Type Severity Reaction Status Date / Time Penicillins Allergy Intermediate HIVES Verified 03/14/24 15:53 Assessment & Plan Assessment & Plan (1) Schizoaffective disorder, bipolar type: Status: Acute Code(s): F25.0 - Schizoaffective disorder, bipolar type (2) Acute stress disorder: Status: Acute Code(s): F43.0 - Acute stress reaction (3) Opioid use disorder: Status: Acute Code(s): F11.90 - Opioid use, unspecified, uncomplicated Plan ASD, PTSD, Recurrent Major Depression, Polysubstance Use Disorder; also manic episodes; AH independent of mood Hospital course: 05/23: Continue current regimen and plans 05/24: Continue current regimen and plan 05/26: EKG as Seroquel prn has been added. 05/28: Ibuprofen prn for back pain Tolerating Trileptal trial 05/29 reviewed history and it seems that patient meets criteria for schizoaffective disorder, bipolar type. Patient reports that she has been quite depressed; she says her mood improved for 1 day and she had less anxiety, attended to ADLs but returned has been present for the past 2 days. She denies any SI. Patient says that the Seroquel and Zoloft were started at [facility]; she says that there she was still depressed but was overall feeling better enough to discharge. She said post discharge she had a manic episode and then got depressed. Reviewed history with patient: Patient reports being sober for 7 years, relapsed this past February when her mother (and then for 2 weeks) in past, while sober she reports history of manic episodes that can last anywhere from 3-7 days; episodes include episodes of talking fast, lots of activity...shopping sprees, buying excessive amount of scratch tickets...mind racing, having a lot of energy, not sleeping at all for 2-3 days and then very little for subsequent days... hanging around friends I should not be with (who shoplifters...) and which resulted in relapse.... Patient reports her friends notice these changes in her behavior. After such an episode, patient gets very depressed. She says this post manic depression is what resulted in this admission to [place]. Patient reports many past hospitalizations for depression often happen after a manic episode; she says some duration of manic episode happens about twice a month. Regarding history of depression, patient reports that medications have been partially helpful but depression remains. -Patient reports that her Mother had Schizoaffective disorder, bipolar type (Schizophrenia with manic episodes). Initially patient was reticent to talk about AVH; however she opened up and reports that daily she experiences AH telling her to pull her hair, to do things to hurt self; if her on people the voice will say that people are talking about her... She thinks that this is real and has a hard time ignoring it; she was however open to considering it might be her mind playing tricks on her because of mental illness. She reports presence of AH independent of mood. Discussed medication management for symptoms and reviewed risks/side-effects of Vraylar and pt willing to start (considered lithium; patient does not remember if past med trials were helpful) will dc Trileptal; just started 2 days ago; no effect yet discussed insomnia; she thinks Trazodone may work if 100mg; will schedule Trazodone and make Seroquel 200mg a prn for continued insomnia (goal to only be on 1 antipsychotic) 05/30 still AH, no changes but no side-effects; still depressed and hard to do ADL's but is forcing herself to shower agrees to increased vraylar; says slept well enough on trazodone; asks for extra PRN trazodone since waking at night. 05/31 Patient reports that mood is better today. She was proud of herself that she went to a group and showered yesterday. She says that auditory hallucinations are the same but is grateful for abating depression. -continue current Vraylar 3 mg; was just started on this dose and hopefully AH will diminish as well. 06/02: DC Trazodone Remeron 15 mg HS Buspirone 10 mg tid Seroquel 200 mg HS 06/04: Increase daytime Seroquel to 75 mg 0900,1400. 06/05: Klonopin 0.5 mg bid 06/08: Pt will use prn Seroquel/Chlorpromazine to assist with sleep as needed. 06/09 Reports that mood is overall better and patient does appear brighter. Auditory hallucinations remain. She said they are not as loud but they are still bothersome and hard to ignore. She agreed to increase Seroquel at bedtime to 300 mg. However she says she has been on Seroquel up to 800 mg and yet Voices remained. 06/10 Patient reports AH feels worse today and she has this paranoid thought that other people are following her and want to hurt her. She was disappointed saying she was initially feeling better but then a peer yelled at her and the voice said that he was trying to kill her; she ran into a room and ever since she has been worried about this. She reports sleeping better with increase Seroquel and does not want to get off Seroquel; she even thinks that Seroquel p.r.n. can replace Thorazine p.r.n.. However auditory hallucinations continue to plague her and she said she thinks on Haldol the voices were diminished. 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 06/12: Inrease HS Seroquel to 350 mg HS 06/13 keep same treatment 06/15: Imodium prn for reports of diarrhea Increase buspirone to 15 mg tid Increase daytime Seroquel to 100 mg bid Addiction consult for NA and AA resources Discharge planning 06/17 Urine culture pending 06/19 Discharge postponed, probable DC 06/22. Continue rx for strep New result +UTI-hospitalist consulted for abx. Asthma exacerbation-hospitalist consult for inhaler update. 06/20- on abiotics , inhaler nebulizer and now PO steroid for asthma exacerbation in setting of strep- also anxiety inc given prn hydroxyzine on many other meds loathe to inc or add anything further at this time 06/21 pt co chills/sweating no fever, got cxr some inflammation but non specific- on abiotics and steroids CTP may need tweaking of psych meds to manage being on steroids- Plan: CV Q 15 minute checks START Haldol 2.5 mg b.i.d. for continuing AH Continue Seroquel 300 mg q.h.s; DC thorazine prn; pt says she'll use seroquel prn instead Continue Zoloft 150 mg; recently titrated Continue doxepin Continue prazosin Discontinue Vraylar Discontinue Trileptal; just started 2 days ago and no effect yet; replacing with Vraylar History of Med trials: Seroquel Abilijodie Risperdone Depakote Patient educated on: medication risk/benefits and medical condition Informed Consent: understands Reason for continued inpatient stay Substantial Risk for: rapid decompensation and med/psych decompensation Time Spent With Patient Time: Total time managing care of this patient today ____ minutes.
[2024-06-21] MEDS: hydrOXYzine HCL 50 MG TABLET PO (18:10)
[2024-06-21] MEDS: Ibuprofen 800 MG TABLET PO (18:10)
[2024-06-21] MEDS: Pramipexole Di-HCL 0.125 MG TABLET PO (18:36)
[2024-06-21] MEDS: QUEtiapine Fumarate 50 MG TABLET 350 MG PO (18:36)
[2024-06-21] MEDS: Doxepin HCl 10 MG CAPSULE 20 MG PO (18:37)
[2024-06-21] MEDS: Lidocaine 4 % Patch ADH..PATCH 1 PATCH TRANSDERMA (18:38)
[2024-06-21 18:39] VITALS: BP 144/90
[2024-06-21] MEDS: Prazosin HCL 1 MG CAPSULE 4 MG PO (18:39)
--- NOTE | 2024-06-21 19:07 | PC.NURSE ---
Argelia became agitated and started yelling in the group room at staff that no one is helping me! I want to go home now! My nurse isnt helping me at all! I cannot breathe! This nurse approached her, She was visibly upset. I'm being treated like shit, I havent showered in 3 days, I keep getting skipped over! , I am so anxious, you're not helping me . Active listening and supportive feedback provided. This nurse reviewed that she had been talking with this nurse 15 minutes before, she was given hydroxyzine per request and ibuprofen for back pain. She declined flovent MDI at that time. This nurse reached out to Dr Aye Zamora, asked if her night medications could be given early. MD was agreeable. All scheduled night medications given and argelia was able to shower as requested.
[2024-06-21 19:52] VITALS: BP 154/84; PULSE 109; RESP 15; TEMP 37.4; O2SAT 96
[2024-06-21] MEDS: QUEtiapine Fumarate 50 MG TABLET PO (21:28)
[2024-06-21 21:34] VITALS: BP 126/82
[2024-06-22] MEDS: methADONE HCl 20 MG/2 ML ORAL.CONC 100 MG PO (07:54)
[2024-06-22 08:12] VITALS: BP 119/75; PULSE 99; RESP 16; TEMP 36.6; O2SAT 100
[2024-06-22] MEDS: Fluticasone Propionate 100 MCG BLST.W.DEV 2 PUFF INHALE (08:55)
[2024-06-22] MEDS: QUEtiapine Fumarate 100 MG TABLET PO (08:57)
[2024-06-22] MEDS: Lidocaine 4 % Patch ADH..PATCH 1 PATCH TRANSDERMA (08:57)
[2024-06-22] MEDS: clonazePAM 0.5 MG TABLET PO (08:58)
[2024-06-22] MEDS: Azithromycin 250 MG TABLET PO (08:58)
[2024-06-22] MEDS: Betamethasone Dip Aug 0.05% Cr 15 GM TUBE 1 APPL TOPICAL (08:58)
[2024-06-22] MEDS: predniSONE 20 MG TABLET 40 MG PO (08:58)
[2024-06-22] MEDS: busPIRone HCl 5 MG TABLET 15 MG PO (08:58)
[2024-06-22] MEDS: Sertraline HCL 50 MG TABLET 150 MG PO (08:58)
--- NOTE | 2024-06-22 15:17 | PM.PSYDC ---
DS: Providers Provider Date of Service: 06/22/24 Date of admission: 05/21/24 18:59 Date of discharge: 06/22/24 Primary care physician: None Physician Admitting clinician: Jocelyne Patel Attending physician on admission: Rodrigo Santamaria Consults: 05/21/24 19:57 Consult to Hospitalist Routine Comment: Consulting Provider: Hospitalist Reason For Exam: Direct admission 06/15/24 13:49 Addiction Medicine Routine Consulting Provider: Addiction Covering Reason for consultation: connection with NA, AA-preparing for discharge Has provider been notified: No 06/18/24 12:17 Consult to Hospitalist Routine Comment: green phelgm, will get chest xray Consulting Provider: Hospitalist Reason For Exam: Asthma exacerbation, 06/19/24 16:23 Consult to Hospitalist Routine Comment: would you suggest another inhaler for pt? Thanks. Consulting Provider: Hospitalist Reason For Exam: asthma, strep, asking for stronger inhalers 06/19/24 17:57 Consult to Hospitalist Routine Comment: Consulting Provider: Hospitalist Reason For Exam: +UTI, recommendations for antibiotic with rx strep Attending physician on discharge: Rodrigo Santamaria Discharging clinician: Jocelyne Patel DS: Diagnosis Discharge Diagnosis (1) Schizoaffective disorder, bipolar type: Status: Acute (2) Acute stress disorder: Status: Acute (3) Opioid use disorder: Status: Acute DS: Medications Discharge Medications Home Medications: Home Medications ?Medication ?Instructions ?Recorded ?Confirmed methadone 10 mg/mL oral syringe 100 mg PO DAILY 05/21/24 05/21/24 (FOR ORAL USE ONLY) Previous Rx's ?Medication ?Instructions ?Recorded albuterol sulfate 90 mcg/actuation 2 puff inhalation Q6H PRN wheezing 06/22/24 aerosol inhaler #1 inhaler azithromycin 250 mg tablet 250 mg PO Q24H #3 tabs 06/22/24 betamethasone, augmented 0.05 % 1 appl topical BID #30 applicators 06/22/24 topical cream buspirone 5 mg tablet 15 mg (3 x 5 mg) PO TID #90 tabs 06/22/24 clonazepam 0.5 mg tablet 0.5 mg PO TID #21 tabs 06/22/24 cyclobenzaprine 10 mg tablet 10 mg PO TID PRN Back pain #10 tabs 06/22/24 fluticasone propionate 100 1 inh inhalation RBID #60 ea 06/22/24 mcg/actuation blister powder for inhalation ibuprofen 800 mg tablet 800 mg PO Q8H PRN Back pain #15 06/22/24 tabs lidocaine 4 % topical patch 1 patch transdermal DAILY #30 ea 06/22/24 (Lidocaine Pain Relief) loperamide 2 mg capsule 4 mg (2 x 2 mg) PO Q6H PRN 06/22/24 Diarrhea #10 caps nicotine (polacrilex) 4 mg buccal 4 mg buccal Q2H PRN Nicotine 06/22/24 lozenge Cravings #110 ea nicotine 21 mg/24 hr daily 21 mg transdermal DAILY PRN 06/22/24 transdermal patch nicotine cravings #30 ea pramipexole 0.125 mg tablet 0.125 mg PO BEDTIME #15 tabs 06/22/24 prazosin 1 mg capsule 4 mg (4 x 1 mg) PO BEDTIME #28 caps 06/22/24 prednisone 20 mg tablet 40 mg (2 x 20 mg) PO DAILY #2 tabs 06/22/24 sertraline 50 mg tablet 150 mg (3 x 50 mg) PO DAILY #90 06/22/24 tabs Mental Status Exam Mental Status Exam Patient Appearance: Well Grooomed and Appropriate Patient Orientation: Person, Place, Time and Situation Level of Consciousness: Awake and Alert Patient Behavior: Talkative Mood Description: Anxious Affect Description: Blunted Patient Cognition Impaired: No Ability to Follow Directions: Fair Speech Pattern: Clear Hallucinations: None Delusions: Not Present Thought Process: Intact and Goal Oriented Thought Content: positive for Intact Depressive Symptoms: Increased Anxiety Abnormal Motor Activity Signs and Symptoms: Restlessness Judgement: Fair Data Data Completed and Pending Completed studies during hospitalization [Text1]: 06/18/24 06/18/24 12:53 Unknown Influenza Type A (PCR) NEGATIVE Influenza Type B (PCR) NEGATIVE RSV RNA Qual (PCR) NEGATIVE SARS-CoV-2 RNA (RT-PCR) NEGATIVE S. pyogenes GrpA BALTAZAR Positive A 06/17/24 11:40 Urine clean catch - Clean Catch Midstream Urine Culture - Final Coag negative Staphylococcus Corynebacterium species Imaging Diagnostic Imaging Impressions Lumbar Spine X-Ray 06/07/24 15:00 IMPRESSION: Unremarkable examination. Electronically signed by: Cristy Mtahis MD 06/08/2024 07:38 AM EDT RP Chest X-Ray 06/18/24 14:00 IMPRESSION: Prominent interstitial markings, which can be seen in the setting of asthma exacerbation. No organized consolidation. Electronically signed by: Donte Baker DO 06/18/2024 11:56 PM EDT RP Chest X-Ray 06/21/24 12:45 IMPRESSION: Mild bronchial wall thickening and hazy opacities in bilateral mid and lower lungs could reflect infectious or inflammatory process. No dense consolidation is seen.] Electronically signed by: Sanya Vaughan MD 06/21/2024 02:50 PM EDT RP DS: Summary Hospital Course Hospital Course: Admission to adult psychiatry for exacerbation of Acute Stress Disorder, Post Traumatic Stress Disorder, Schizoaffective Disorder, Bipolar Type, Opiate and Polysubstance Use Disorders. Pt seen initially at [facility] for need for detox and active SI with plans. Precipitants included the recent of her mother, the deaths of her , father and friend within the past five years, recent release from [facility] from a [address] [facility] and feeling overwhelmed with losses and resulting responsibilities from these losses. Pt had plans to overdose or drown herself. Pt reports relapse upon discharge from [facility]. She was detoxed. Medications were evaluated and adjusted. Pt remained severely depressed, anergic, amotivated due to losses and anxious. She was able to utilize the milieu after a period of time. She developed asthma exacerbation, strep and a UTI which here treated by hospitalist team. She discharges to her home, which she plans to sell and community supports with denial of SI, and with future oriented goals. Status at Discharge Functional status at discharge: independent ambulation Overall status at discharge: patient is back to baseline Time Spent with Patient Time attestation: Total time managing care of this patient today ____ minutes. Time spent: Less than 30 minutes Discharge Plan Discharge Anticipated Discharge Date/Time: 06/22/24 12:00 Patient Disposition: Home, Self-Care Discharge Diagnosis: Acute Stress Disorder Post Traumatic Stress Disorder Schizoaffective Disorder, Bipolar Type Opiate Use Disorder Polysubstance Use Disorder Referrals: [facility] ([facility]): Yesika Kenny [Other] - 06/25/24 10:00 am (Initial Diagnostic evaluation for therapy Hospital Discharge Appointment Appointment in person at [facility] in [place], [place]) [facility] [employer] ([facility]): Elizabethabel Ella [Other] - 07/13/24 4:00 pm (Initial psychiatric evaluation by a psychiatric provider for medication management services Appointment is by tele-health (telephone) Should you have any issues please contact the [facility] in [place], [place].) [facility] [employer] ([facility]): [employer] [Other] - 1 Week (Referral for [employer] placed to [facility]. Speak with clinician at your first appointment regarding referral for Recovery Coaching services.) [facility] [employer] ([facility]): [facility] [Other] - 1 Week (Referral for Case Management services Speak with clinician at your initial intake at [facility] to inquire regarding referral for case management services.) Physician,None [Primary Care Provider] - 1 Week Discharge Medications: New cyclobenzaprine 10 mg Tablet 10 mg PO TID PRN (Reason: Back pain) Qty: 10 0RF buspirone 5 mg Tablet 15 mg PO TID Qty: 90 0RF azithromycin 250 mg Tablet 250 mg PO Q24H Qty: 3 0RF nicotine 21 mg/24 hr Patch 24 Hour 21 mg transdermal DAILY PRN (Reason: nicotine cravings) Qty: 30 0RF nicotine (polacrilex) 4 mg Lozenge 4 mg buccal Q2H PRN (Reason: Nicotine Cravings) Qty: 110 0RF loperamide 2 mg Capsule 4 mg PO Q6H PRN (Reason: Diarrhea) Qty: 10 0RF ibuprofen 800 mg Tablet 800 mg PO Q8H PRN (Reason: Back pain) Qty: 15 0RF clonazepam 0.5 mg Tablet 0.5 mg PO TID Qty: 21 3RF fluticasone propionate 100 mcg/actuation Blister With Device 1 inh inhalation RBID Qty: 60 0RF sertraline 50 mg Tablet 150 mg PO DAILY Qty: 90 0RF lidocaine [Lidocaine Pain Relief] 4 % Adhesive Patch,Medicated 1 patch transdermal DAILY Qty: 30 0RF Protocol: Apply to: Apply to: back prednisone 20 mg Tablet 40 mg PO DAILY Qty: 2 0RF betamethasone, augmented 0.05 % Cream 1 appl topical BID Qty: 30 0RF Protocol: Apply to: Apply to: L foot Continued methadone 10 mg/mL Syringe 100 mg PO DAILY prazosin 1 mg capsule 4 mg PO BEDTIME Qty: 28 3RF pramipexole 0.125 mg tablet 0.125 mg PO BEDTIME Qty: 15 1RF albuterol sulfate 90 mcg/actuation HFA aerosol inhaler 2 puff INHALATION Q6H PRN (Reason: wheezing) Qty: 1 0RF Discontinued sertraline 100 mg tablet 100 mg PO QAM quetiapine 200 mg tablet 200 mg PO BEDTIME hydroxyzine pamoate 50 mg capsule 50 mg PO Q4H PRN (Reason: anxiety) doxepin 10 mg capsule 20 mg PO BEDTIME chlorpromazine 50 mg tablet 50 mg PO Q4H PRN (Reason: Agitation) quetiapine 50 mg tablet 50 mg PO QAM Discharge Orders: Discharge Order (Routine); Ordered 06/22/24 Ordered By: Jocelyne Patel Diet: Advance to usual diet Activity on Discharge: As tolerated Stand Alone Forms: Patient Portal Discharge page, Community Support Print Language: Danish Care Plan Goals: Mood and Behavioral Stabilization Abstinence Health Concerns: Mood and Behavioral Stabilization Abstinence Plan of Treatment: Attend scheduled appointments Take medications as directed Assessment: Scheduled discharge No SI/HI/AH/VH No sx of guy or psychosis Discharge Date/Time: 06/22/24 11:10
== END 2024-06-22 11:10 | disposition home or self-care (01) | DRG 880 ==
PROVIDERS: Psychiatry & Neurology Psychiatry; Admitting Provider Psychiatry & Neurology Psychiatry; Visit Provider Clinical Nurse Specialist Psychiatric/Mental Health, Adult
DX: F43.0 Acute stress reaction (principal); F11.20 Opioid dependence, uncomplicated; N39.0 Urinary tract infection, site not specified; F17.210 Nicotine dependence, cigarettes, uncomplicated; J02.0 Streptococcal pharyngitis; F25.0 Schizoaffective disorder, bipolar type; L30.0 Nummular dermatitis; J45.909 Unspecified asthma, uncomplicated; B95.7 Other staphylococcus as the cause of diseases classified elsewhere; Z20.822 Contact with and (suspected) exposure to COVID-19; G25.2 Other specified forms of tremor; F43.10 Post-traumatic stress disorder, unspecified; F19.90 Other psychoactive substance use, unspecified, uncomplicated; Z63.4 Disappearance and death of family member; Z88.0 Allergy status to penicillin; Z71.6 Tobacco abuse counseling; Z79.899 Other long term (current) drug therapy
CPT/HCPCS: 0241U; 36415; 71046; 72100; 80053; 80061; 82607; 82746; 83036; 84443; 87086; 87651; 93005; 94640

== ENCOUNTER → 2024-05-21 18:59 | Outpatient (BNV) | payer MEDICARE, MEDICAID, SELFPAY | PROVIDERS: Admitting Provider Psychiatry & Neurology Psychiatry; Visit Provider Student in an Organized Health Care Education/Training Program | DX: Z00.8 Encounter for other general examination (principal) | CPT/HCPCS: 99429; 99499 ==

== ENCOUNTER → 2024-05-21 18:59 | Outpatient (BNV) | payer MEDICARE, MEDICAID, SELFPAY | PROVIDERS: Admitting Provider Psychiatry & Neurology Psychiatry; Visit Provider Psychiatry & Neurology Psychiatry | DX: F25.0 Schizoaffective disorder, bipolar type (principal); F43.0 Acute stress reaction; F11.90 Opioid use, unspecified, uncomplicated | CPT/HCPCS: 90792; 99231; 99232; 99238 ==

== ENCOUNTER 2025-01-18 15:55 | Inpatient (IN) | payer MEDICARE, MEDICAID, SELFPAY ==
--- NOTE | ~2025-01-18 | CT_ITS ---
CLINICAL HISTORY: chronically incarcerated umbilical hernia --- Additional Notes or Special Instructi ons: no oral or IV contrast CT abdomen and pelvis without contrast Comparison: None Findings: Lung bases are clear. The stomach is distended with ingested material. The gallbladder, spleen, liver, adrenal glands, pancreas, kidneys, ureters and bladder are normal. The uterus is mildly anteverted and rightward flex. No adnexal mass. Moderate diffuse fecal retention throughout the colon. No small bowel obstruction or free air. Fat containing ventral hernia with fluid within the hernia sac and stranding about the fat. The fascial defect is approximately 2.4 cm. There is no bowel associated with this hernia. No acute osseous finding. Impression: There is a ventral hernia containing fat and fluid. There is no bowel associated with this hernia. Moderate fecal retention. Incidental findings as detailed This document has been electronically signed by: Marco Norman MD on 01/31/2025 10:07:37
[2025-01-18 16:21] VITALS: BP 140/90; PULSE 76; O2SAT 97
[2025-01-18 16:47] VITALS: TEMP 36.9; BMI 30.2
--- NOTE | 2025-01-18 17:32 | ED_ITS ---
HPI - Psych General Chief Complaint: Psychiatric Symptoms Stated Complaint: SI Time Seen by Provider: 01/18/25 16:30 Source: patient, RN notes reviewed and old records reviewed Mode of arrival: ambulatory Limitations: no limitations History of Present Illness ED Provider: DENNY MCFARLANE PA-C HPI Narrative: 44 year old female with pmhx significant for PTSD, MDD, schizoaffective disorder, polysubstance abuse presents to the ED today for evaluation of increasing depression and suicidal ideation with plan to down herself in the bath tub. States she was just released from [facility] rehab two days ago. Reports relapsing yesterday. Admits to injecting heroin and consuming multiple pints of alcohol last night. Denies any other illicit substance use. Denies //. Related Data Home Medications ?Medication ?Instructions ?Recorded ?Confirmed methadone 10 mg/mL oral syringe 100 mg PO DAILY 05/21/24 01/19/25 (FOR ORAL USE ONLY) clonidine HCl 0.1 mg tablet 0.1 mg PO BID 01/18/25 01/18/25 cyclobenzaprine 5 mg tablet 5 mg PO TID PRN Muscle Pain 01/18/25 01/18/25 hydroxyzine pamoate 50 mg capsule 50 mg PO BID PRN Anxiety 01/18/25 01/18/25 nifedipine 60 mg tablet,extended 60 mg PO DAILY 01/18/25 01/18/25 release 24 hr Previous Rx's ?Medication ?Instructions ?Recorded albuterol sulfate 90 mcg/actuation 2 puff inhalation Q6H PRN wheezing 06/22/24 aerosol inhaler #1 inhaler clonazepam 0.5 mg tablet 0.5 mg PO TID #21 tabs 06/22/24 nicotine (polacrilex) 4 mg buccal 4 mg buccal Q2H PRN Nicotine 06/22/24 lozenge Cravings #110 ea nicotine 21 mg/24 hr daily 21 mg transdermal DAILY PRN 06/22/24 transdermal patch nicotine cravings #30 ea Allergies Allergy/AdvReac Type Severity Reaction Status Date / Time Penicillins Allergy Intermediate HIVES Verified 01/18/25 16:49 Review of Systems 2 Review of Systems: Yes all other systems are reviewed and are negative PMFSH Past Medical History Attestation statement: The following information was validated with the patient. Source: old records reviewed and nursing notes reviewed Medical History Opioid use disorder Schizoaffective disorder, bipolar type Polysubstance use disorder Asthma PTSD (post-traumatic stress disorder) Recurrent major depression Social History Social History Household Members: None Housing: Other Housing Other:: trailer-can't live there though Do you presently have visiting nurse or other home services: No Alcohol intake: current Alcohol intake frequency: a few times a week Patient Tobacco Use Status: Current everyday Tobacco user Tobacco use type: Cigarette Cigarette Packs Per Day: 2 Cigarettes Per Day: 40.0 Smoked in Last 30 Days: No e-Cigarette/Vaping Use: Never Used Patient Interested in Nicotine Replacement: Yes Patient Given Instructions on How to Stop Smoking: Yes Date Education Initiated: 01/19/25 Second Hand Smoke Exposure: No Use of substances other than those prescribed or required for medical reasons: Yes Substance Use Type: Crack/Cocaine, Heroin, Marijuana and Opiates Substance Use Frequency: Chronic Longstanding Last Used Substance: Just Prior to Admission Last Used Substance Other:: heroin Currently Displaying Signs/Symptoms of Drug Intoxication Withdrawal: Yes Any prior treatment program specific to substance use: Yes Have you been hit, kicked, punched, or otherwise hurt by someone within the past year? If so, by whom?: No Do you feel safe in your current relationship?: No Is there a partner from a previous relationship who is making you feel unsafe now?: No Are you made to feel afraid or neglected: No Spiritual Healthcare Practices: no Jewish Healthcare Practices: taoism Cultural Healthcare Practices: no Advance Directives: No Advance Directives Information Provided: Yes Do you have a plan to hurt others: No Plan Recently lost weight without trying: Yes How much weight loss: 24-33 pounds Eating poorly because of decreased appetite: No Nutrition screen score: 5 Nutrition Risks: Dental problems Patient : No : No Poor oral hygiene: No service: No Sexual orientation: Straight/Heterosexual Physical Exam 2 Vital Signs: Vital Signs: Last Vital Signs Temp 97.1 F 01/19/25 14:41 Pulse 71 01/19/25 14:41 Resp 20 01/19/25 14:41 BP 153/78 H 01/19/25 14:41 Pulse Ox 99 01/19/25 14:41 O2 Del Method Room Air 01/19/25 14:41 BMI result Body Mass Index 30.2 Vital signs stable General: Unkempt, disheveled appearing Skin: multiple track erwin noted to upper extremities. No areas of active skin infection. no noted bites Head: Normocephalic, atraumatic. no areas of active lice EENT: Hearing is intact b/l. Conjunctiva clear. PERRLA. EOM intact. Moist mucous membranes.? Cardiac: Chest wall symmetric. RRR Lungs: Normal respiratory effort without accessory muscle use Abdomen: Soft, non-tender, non-distended Back: No midline spinous or paraspinal tenderness. No step off deformity. Ext: Upper and lower extremities atraumatic, without tenderness, deformity, swelling or erythema Neuro: AOx3. Normal speech. CN 2-12 grossly intact. Ambulating with steady gait Course Course Course Narrative: Slight leukopenia to 4.3. No anemia. H&H stable. Chemistry without acute electrolyte abnormality requiring intervention. No MORENITA. Liver function around baseline. UA and urine drug screen pending > patient placed in physician observation pending care team consultation and disposition Reevaluation(s) Reevaluation #1: Time: 09:02 Date: 01/19/25 Provider: David Membreno MD Patient in physician observation for psychiatric evaluation.? No acute events reported overnight. No current complaints. VS stable.? Patient is in bed search status/pending CARE team evaluation. Will continue to monitor. Reevaluation #2: Patient will be admitted to and M5 Time: 16:33 Medications Administered Generic Name Dose Route Start Last Admin Trade Name Freq PRN Reason Stop Dose Admin Clonazepam 0.5 mg 01/18/25 23:30 01/19/25 09:25 Clonazepam 0.5 Mg Tablet PO 0.5 mg TID IJEOMA Administration Clonidine HCl 0.1 mg 01/18/25 23:30 01/19/25 09:25 Clonidine Hcl 0.1 Mg Tablet PO 0.1 mg BID IJEOMA Administration Protocol Cyclobenzaprine HCl 5 mg 01/18/25 23:19 01/19/25 14:20 Cyclobenzaprine Hcl 5 Mg Tablet PO 5 mg TID PRN Administration Muscle Pain Hydroxyzine HCl 50 mg 01/18/25 23:19 01/18/25 23:39 Hydroxyzine Hcl 50 Mg Tablet PO 50 mg BID PRN Administration Anxiety Lorazepam 2 mg 01/19/25 12:38 01/19/25 14:21 Lorazepam 1 Mg Tablet PO 2 mg Q2H PRN Administration CIWA 11 and above Nicotine Polacrilex 4 mg 01/19/25 12:38 01/19/25 14:20 Nicotine Polacrilex 2 Mg Gum BUCCAL 4 mg Q2H PRN Administration Nicotine Cravings Nifedipine 60 mg 01/19/25 09:00 01/19/25 10:49 Nifedipine Er 60 Mg Tab.Er.24 PO 60 mg DAILY IJEOMA Administration Protocol Nitrofurantoin Macrocrystals 100 mg 01/19/25 00:15 01/19/25 10:48 Nitrofurantoin Monohyd/M-Cryst 100 Mg Capsule PO 100 mg BIDWM IJEOMA Administration Discontinued Medications Generic Name Dose Route Start Last Admin Trade Name Freq PRN Reason Stop Dose Admin Nitrofurantoin Macrocrystals 100 mg 01/19/25 00:12 01/19/25 00:18 Nitrofurantoin Monohyd/M-Cryst 100 Mg Capsule PO 01/19/25 00:13 100 mg ONCE ONE Administration Medical Decision Making Medical Decision Making [facility] Narrative: 44 year old female with pmhx significant for PTSD, MDD, schizoaffective disorder, polysubstance abuse presents to the ED today for evaluation of increasing depression and suicidal ideation with plan to down herself in the bath tub. Differential diagnosis includes anemia, electrolyte abnormality, mood disorder, anxiety, depression, SI, polysubstance abuse Presentation not consistent with acute organic causes to include delirium, dementia or drug induced disorders (acute ingestions or withdrawal; no evidence of toxidrome).? Given the H&P, I suspect this patient is suicidal and will require observation. Will consult care team to evaluate the patient. Will also obtain labs for medical clearance. Plan: labs, EKG, ASA/APAP levels, ETOH level, UDS, care team consultation, reassessment Differential Diagnosis Differential Diagnoses: The differential diagnosis associated with the presentation includes as above. Admission/Observation not indicated. Lab Data [facility] Lab Attestation statement: I reviewed the patient's lab results. as above. 01/18/25 18:00 01/19/25 13:59 Labs: Lab Results 01/18/25 01/18/25 Range/Units 18:00 23:23 WBC 4.3 L (4.8-10.8) X10*3/uL RBC 4.33 (4.20-5.50) X10*6/uL Hgb 12.3 (12.0-16.0) g/dl Hct 37.9 (37.0-47.0) % MCV 87.5 (80.0-98.0) fL MCH 28.4 (27.0-33.0) pg MCHC 32.5 (31.0-35.0) g/dl RDW 14.7 (11.0-16.0) % Plt Count 197 D (160-400) X10*3/uL MPV 11.7 (9.4-12.3) fL Immature Gran % (Auto) 0.0 (0.0-0.4) % Neut % (Auto) 40.7 L (45-73) % Lymph % (Auto) 42.2 H (20-40) % [place] % (Auto) 14.5 H (2-11) % Eos % (Auto) 1.9 (0-4) % Baso % (Auto) 0.7 (0-2) % Lymph # (Auto) 1.8 (1.2-4.9) X10*3/uL [place] # (Auto) 0.6 (0.1-1.2) X10*3/uL Eos # (Auto) 0.1 (0.0-0.4) X10*3/uL Baso # (Auto) 0.0 (0.0-0.2) X10*3/uL Abs Immat Gran (auto) 0.00 (0.00-0.03) X10*3/uL Absolute Neuts (auto) 1.7 L (2.0-8.3) x10*3/uL Absolute Nucleated RBC 0.000 (0.0-0.012) X10*3/uL Nucleated RBC % (auto) 0.0 (0.0-0.2) /100WBC Sodium 137 (135-145) mmol/L Potassium 4.5 (3.3-5.1) mmol/L Chloride 107 (96-108) mmol/L Carbon Dioxide 24 (22-29) mmol/L Anion Gap 11 L (12-20) BUN 10 (9-16) mg/dL Creatinine 0.98 (0.5-1.4) mg/dL Estim Creat Clear Calc 66.0 Estimated GFR > 60 Random Glucose 121 H (60-115) mg/dL Calcium 8.6 (8.4-10.2) mg/dL Magnesium 1.8 (1.6-2.6) mg/dL Total Bilirubin 0.2 (0.0-1.0) mg/dL AST 33 H (5-31) U/L ALT 13 (0-31) U/L Alkaline Phosphatase 100 (39-117) U/L Total Protein 7.2 (6.5-8.0) g/dL Albumin 3.6 (3.5-5.0) g/dL Lipase 12 (8-78) U/L Urine Color Yellow Urine Appearance Clear Urine pH 5.5 (5.0-9.0) Ur Specific [place] 1.020 (1.005-1.025) Urine Protein Negative (Neg-Trace) mg/dL Urine Glucose (UA) Negative (Negative) mg/dL Urine Ketones Negative (Negative) mg/dL Urine Blood Negative (Negative) Urine Nitrite Positive H (Negative) Ur Leukocyte Esterase Moderate (2+) H (Negative) Urine RBC 0-2 (0-2) /HPF Urine WBC >50 H (0-5) /HPF Ur Squamous Epith Cells 6-10 (0-2) /HPF Urine Bacteria 4+ (None Seen) Hyaline Casts 0-2 (0-2) /LPF Urine Test NEGATIVE (NEGATIVE) Salicylates < 5.0 L (15-30) mg/dL Urine Opiates Screen POSITIVE H (Not Detect) Ur Buprenorphine Scrn Not Detected (Not Detect) ng/mL Ur Oxycodone Screen Not Detected (Not Detect) ng/mL Urine Methadone Screen Positive H (Not Detect) ng/mL Urine Fentanyl Screen POSITIVE H (Not Detect) Acetaminophen < 3 (<30) mcg/mL Ur Barbiturates Screen Not Detected (Not Detect) Ur Phencyclidine Scrn Not Detected (Not Detect) Ur Amphetamines Screen Not Detected (Not Detect) U Benzodiazepines Scrn POSITIVE H (Not Detect) Urine Cocaine Screen POSITIVE H (Not Detect) U Marijuana (THC) Screen POSITIVE H (Not Detect) Ethyl Alcohol < 10 mg/dL External Record Review External record reviewed: Inpatient record Chronic Conditions Patient?s care impacted by: Other (polysubstance abuse) Social Determinants Patient?s care significantly limited by Social Determinants of Health including: Other Social Determinant of Health Critical Care Time Critical Care Time Critical Care Time: No Discharge Plan Discharge Clinical Impression: Suicidal ideation, Depression Patient Disposition: Admitted As Inpatient Interventions: Admission Worksheet (ED) Last Done: 01/19/25 13:17 Discharge Date/Time: 01/19/25 13:31
[2025-01-18 18:04] LABS: MANUAL DIFF FLAG NO
[2025-01-18 18:10] LABS: Basophils Percent Auto 0.7 % (0-2); Eosinophils Absolute Auto 0.1 X10*3/uL (0.0-0.4); Eosinophils Percent Auto 1.9 % (0-4); Hematocrit 37.9 % (37.0-47.0); Hemoglobin 12.3 g/dl (12.0-16.0); Lymphocytes Absolute Auto 1.8 X10*3/uL (1.2-4.9); Lymphocytes Percent Auto 42.2 % (20-40); Mean Corpuscular HGB Conc 32.5 g/dl (31.0-35.0); Mean Corpuscular Hemoglobin 28.4 pg (27.0-33.0); Mean Corpuscular Volume 87.5 fL (80.0-98.0); Mean Platelet Volume 11.7 fL (9.4-12.3); Monocytes Absolute Auto 0.6 X10*3/uL (0.1-1.2); Monocytes Percent Auto 14.5 % (2-11); Neutrophils Absolute Auto 1.7 x10*3/uL (2.0-8.3); Neutrophils Percent Auto 40.7 % (45-73); Platelet Count 197 X10*3/uL (160-400); Red Blood Count 4.33 X10*6/uL (4.20-5.50); Red Cell Distribution Width 14.7 % (11.0-16.0); White Blood Count 4.3 X10*3/uL (4.8-10.8)
[2025-01-18 18:21] LABS: Acetaminophen LAB < 3 mcg/mL (<30); Alanine Aminotransferase 13 U/L (0-31); Albumin Level 3.6 g/dL (3.5-5.0); Alkaline Phosphatase 100 U/L (39-117); Anion Gap 11 (12-20); Aspartate Amino Transferase 33 U/L (5-31); Bilirubin Total 0.2 mg/dL (0.0-1.0); Blood Urea Nitrogen 10 mg/dL (9-16); Calcium 8.6 mg/dL (8.4-10.2); Carbon Dioxide 24 mmol/L (22-29); Chloride 107 mmol/L (96-108); Estimated Glomerular Filt Rate > 60; Ethanol < 10 mg/dL; Glucose Random 121 mg/dL (60-115); Lipase 12 U/L (8-78); Magnesium 1.8 mg/dL (1.6-2.6); Potassium 4.5 mmol/L (3.3-5.1); Salicylate < 5.0 mg/dL (15-30); Sodium 137 mmol/L (135-145); Total Protein 7.2 g/dL (6.5-8.0)
[2025-01-18 18:28] VITALS: RESP 18
--- OUTSIDE RECORDS SUMMARY | 2025-01-18 18:38 | XMS_ITS | Clinical Summary ---
Author Organization [employer] Address [address] [place] [address] Care Team Providers Care Bottle Blower Name Role Phone Heavenly Delgadillo MD Primary Care Provider [phone] Medications * This document contains information received from the source organization and may not represent a complete record from that organization. doxepin (SINEquan) 10 MG capsule Take 2 capsules by mouth at bedtime. 4 Active pramipexole (Mirapex) 0.125 MG tablet Take 1 tablet by mouth at bedtime. 4 Active prazosin (Minipress) 1 MG capsule Take 4 capsules by mouth at bedtime. 4 Active QUEtiapine (SEROquel) 200 MG tablet Take 1 tablet by mouth at bedtime. 4 Active QUEtiapine (SEROquel) 50 MG tablet Take 1 tablet by mouth in the morning. 4 Active sertraline (Zoloft) 100 MG tablet Take 1 tablet by mouth in the morning. 4 Active albuterol 108 (90 Base) MCG/ACT inhaler Inhale 2 puffs every 6 (six) hours if needed for wheezing or shortness of breath. 4 Active chlorproMAZINE (Thorazine) 50 MG tablet Take 1 tablet by mouth every 4 (four) hours if needed (severe agitation). 4 Active hydrOXYzine pamoate (Vistaril) 50 MG capsule Take 1 capsule by mouth every 4 (four) hours if needed for anxiety. 4 Active naloxone (Narcan) 4 mg/0.1 mL nasal spray INSTILL 1 SPRAY INTO ONE NOSTRIL. MAY REPEAT IN 2-3 MINUTES IN ALTERNATE NOSTRIL FOR OPIOID OVERDOSE 4 Active methadone (Dolophine) 10 MG tablet Take 60 mg by mouth Once per day. Active Immunizations Name Administration Dates Next Due Influenza, seasonal, injectable, preservative fr ee 07/27/2015,09/19/2012 Pneumococcal Conjugate PCV 7 09/19/2012 Social History Tobacco Use Types Packs/Day Years Used Date Smoking Tobacco: Never Assessed Comments Unknown Sex and Gender Information Value Date Recorded Sex Assigned at Female 04/17/2024 2:16 PM EDT Legal Sex Female 2:15 PM EDT Gender Identity Female 04/17/2024 2:16 PM EDT Sexual Orientation Straight 04/17/2024 2: 17 PM EDT Plan of Treatment Health Maintenance Due Date Last Done Comments CT Colonography 1979 Colonoscopy 1979 Colorectal Cancer Screening 1979 Depression Screening 1979 FIT DNA/Cologuard 1979 FIT 1979 FOBT 1979 HIV Screening 1979 SDOH Screening 1979 Sigmoidoscopy 1979 Alcohol/Substance Use Screening 1991 Tobacco Screening 1991 Family Planning (PISQ) 1994 Hepatitis C Screening 1997 DTaP/Tdap/Td Vaccines (1 - Tdap) 1998 Hepatitis B Vaccines (1 of 3 - 19+ 3-dose series) 1998 Pap Smear 2000 Cervical Cancer Screening 2009 HPV/Cotest 2009 Mammogram 2019 COVID-19 Vaccine (1 - 2023-2 5 season) 2024 Influenza Vaccine (#1) 2024 5, 09/19/2012 Zoster Vaccines (1 of 2) 2029 RSV Patients and Patients Aged 60 years or older (1 - 1-dose 75+ series) 2054 Pneumococcal Vaccine: Pediatrics (0 to 5 Years) and At-Risk Patients (6 to 49) Years) Aged Out 09/19/2012 No longer eligible b ased on patient's age to complete this topic HIB Vaccines Aged Out No longer eligi ble based on patient's age to complete this topic HPV Vaccines Aged Out No longer eligi ble based on patient's age to complete this topic Hepatitis A Vaccines Aged Out No long er eligible based on patient's age to complete this topic IPV Vaccines Aged Out No longer eligi ble based on patient's age to complete this topic Meningococcal Vaccine Aged Out No sukumar dre eligible based on patient's age to complete this topic RSV under 20 months Aged Out No longe r eligible based on patient's age to complete this topic Rotavirus Vaccines Aged Out No longer eligible based on patient's age to complete this topic Insurance [facility] [address] [address] [employer] Care Teams Bottle Blower Relationship Specialty Start Date End Date Heavenly Delgadillo MD [address] [place] [id number] PCP - General Internal Medicine 05/11/24
--- OUTSIDE RECORDS SUMMARY | 2025-01-18 18:38 | XMS_ITS | Clinical Summary ---
Author Organization [facility] [employer] [facility] ity Address [address] [place] [address] Care Team Providers Care Faculty I On Call Medical Assistant Name Role Phone Terry Lin MD Primary Care Provider [phone] Social History Tobacco Use Types Packs/Day Years Used Date Smoking Tobacco: Never Assessed Comments Unknown Sex and Gender Information Value Date Recorded Sex Assigned at Not on file Legal Sex Female 10:12 AM EST Gender Identity Not on file Sexual Orientation Not on file Plan of Treatment Health Maintenance Due Date Last Done Comments Breast Cancer Screening 1979 DTaP,Tdap,and Td Vaccines (1 - Tdap) 1998 Hepatitis B Vaccines (1 of 3 - 19+ 3-dose series) 1998 Cervical Cancer Screening: P ap Smear 2000 COVID-19 Vaccine (2023-2 5 season) 2024 Colorectal Cancer Screening: Colonoscopy 08/01/2024 Depression Screening 08/01/2024 HIV Screening 08/01/2024 Hepatitis C Screening 08/01/2024 Social Influencers of Health Screening 08/01/2024 Influenza Vaccine (Season Ended) 2025 HIB Vaccines Aged Out No longer eligi [...] on patient's age to complete this topic MMR Vaccines Aged Out No longer eligi ble based on patient's age to complete this topic Meningococcal ACWY Vaccine Aged Out N o longer eligible based on patient's age to complete this topic Meningococcal B Vaccine Aged Out No l onger eligible based on patient's age to complete this topic Pneumococcal Vaccine: Pediat rics (0 to 5 Years) and At-Risk Patients (6 to 64 Years) Aged Out No longer eligible b ased on patient's age to complete this topic RSV Immunization Patients Un aron 20 months Aged Out No longer eligible b ased on patient's age to complete this topic Varicella Vaccines Aged Out No longer eligible based on patient's age to complete this topic Care Teams Faculty I On Call Medical Assistant Relationship Specialty Start Date End Date Terry Lin MD PCP - General Internal Medicine 01/21/19
--- NOTE | 2025-01-18 19:04 | PC.NURSE ---
patient appears to be in no apparent distress, resting in bed, respirations even and unlabored. This RN lauro patient's blood, no issues. Continue plan of care for IPLOC initiated by [facility]
[2025-01-18] MEDS: hydrOXYzine HCL 50 MG TABLET PO (23:39)
[2025-01-18 23:40] VITALS: BP 131/73
[2025-01-18 23:40] LABS: Appearance Urine Clear; Color Urine Yellow; Glucose Urine UA Negative (Negative); Leukocyte Esterase Urine Moderate (2+) (Negative); Nitrite Urine Positive (Negative); PH 5.5 (5.0-9.0); UMIC TRIGGER UACC YES; Urine Blood Negative (Negative); Urine Ketones Negative (Negative); Urine Protein Negative (Neg-Trace)
[2025-01-18] MEDS: clonazePAM 0.5 MG TABLET PO (23:40)
[2025-01-18] MEDS: cloNIDine HCL 0.1 MG TABLET PO (23:40)
[2025-01-18] MEDS: Cyclobenzaprine HCl 5 MG TABLET PO (23:40)
[2025-01-18 23:43] LABS: Amphetamine Screen Urine Not Detected (Not Detect); Barbiturates, Urine Not Detected (Not Detect); Benzodiazepines Screen Urine POSITIVE (Not Detect); Buprenorphine Scr Not Detected (Not Detect); Cannabinoid Screen Urine POSITIVE (Not Detect); Cocaine Screen Urine POSITIVE (Not Detect); Fentanyl, urine POSITIVE (Not Detect); Methadone Screen, Urine Positive (Not Detect); Opiate Screen Urine POSITIVE (Not Detect); Oxycodone Screen Urine Not Detected (Not Detect); Phencyclidine Screen Urine Not Detected (Not Detect)
[2025-01-18 23:45] LABS: Bacteria Urine 4+ (None Seen); Hyaline Casts Urine 0-2 /LPF (0-2); RBC Urine 0-2 /HPF (0-2); UACC Culture Trigger YES; WBC Urine >50 /HPF (0-5)
[2025-01-18 23:48] VITALS: BP 131/73; PULSE 74; RESP 17; TEMP 36.7; O2SAT 98
--- NOTE | 2025-01-19 | ECG_ITS ---
Test Reason : CHECK QTC Blood Pressure : */* mmHG Vent. Rate : 70 BPM Atrial Rate : 70 BPM P-R Int : 162 ms QRS Dur : 76 ms QT Int : 448 ms P-R-T Axes : 75 82 67 degrees QTcB Int : 483 ms Normal sinus rhythm Septal infarct , age undetermined Abnormal ECG When compared with ECG of 26-May-2024 17:54, No significant change was found Referred By: David Membreno Electronically Signed By: ANTONIO QUEZADA MD
[2025-01-19] MEDS: Nitrofurantoin Monohyd/M-Cryst 100 MG CAPSULE PO ×3 (00:18→17:38)
--- NOTE | 2025-01-19 05:28 | PC.NURSE ---
Patient slept through the night, no distress observed/reported, meds and meals compliant, disposition per [facility] is Sec-12 inpatient bed search, 15 minutes safety check, no behavior and safety concerns, will continue to monitor.
--- NOTE | 2025-01-19 07:29 | PC.NURSE ---
Assumed care for this pt at 0645. Pt appears to be sleeping at this time. No acute concerns. Will continue plan of care for inpatient bed search.
[2025-01-19 07:52] VITALS: PULSE 110
[2025-01-19 08:14] VITALS: BP 129/78; PULSE 61; RESP 20; TEMP 36.6; O2SAT 99
[2025-01-19 08:17] LABS: UPreg QC Valid YES; Urine Pregnancy NEGATIVE (NEGATIVE)
[2025-01-19] MEDS: cloNIDine HCL 0.1 MG TABLET PO ×2 (09:25→21:38)
[2025-01-19] MEDS: clonazePAM 0.5 MG TABLET PO ×3 (09:25→21:37)
[2025-01-19] MEDS: NIFEdipine ER 60 MG TAB.ER.24 PO (10:49)
[2025-01-19] MEDS: Cyclobenzaprine HCl 5 MG TABLET PO (14:20)
[2025-01-19] MEDS: Nicotine Polacrilex 2 MG GUM 4 MG BUCCAL (14:20)
[2025-01-19] MEDS: LORazepam 1 MG TABLET 2 MG PO (14:21)
[2025-01-19 14:35] LABS: Anion Gap 12 (12-20)
[2025-01-19 14:41] VITALS: BP 153/78; PULSE 71; RESP 20; TEMP 36.2; O2SAT 99
[2025-01-19 14:43] LABS: Alanine Aminotransferase 13 U/L (0-31); Albumin Level 3.8 g/dL (3.5-5.0); Aspartate Amino Transferase 33 U/L (5-31); Bilirubin Total 0.4 mg/dL (0.0-1.0); Blood Urea Nitrogen 8 mg/dL (9-16); Calcium 9.3 mg/dL (8.4-10.2); Carbon Dioxide 27 mmol/L (22-29); Chloride 104 mmol/L (96-108); Creatinine Clr Calc Pharmacy 87.4; Estimated Glomerular Filt Rate > 60; Glucose Random 100 mg/dL (60-115); Sodium 139 mmol/L (135-145); Total Protein 7.9 g/dL (6.5-8.0)
[2025-01-19 17:20] LABS: Alkaline Phosphatase 105 U/L (39-117)
[2025-01-19] MEDS: methADONE HCl 20 MG/2 ML ORAL.CONC 5 MG PO (17:37)
[2025-01-19] MEDS: Nicotine 21 MG PATCH.TD24 TRANSDERMA (17:42)
[2025-01-19] MEDS: OLANZapine 5 MG TABLET PO (17:42)
[2025-01-19] MEDS: LORazepam 1 MG TABLET PO ×2 (18:31→21:37)
--- NOTE | 2025-01-19 18:52 | PC.ADMIT ---
Addendum entered by Melvina Mcarthur RN 01/19/25 19:39: Rose endorses AVH at baseline. Original Note: Rose Elias is a 44 year old female that was admitted to from [facility] at 13:45 after a short relapse after an admission to [facility] in [place] from which she was discharged on 01/15/25. Rose has a PMH significant for PTSD, MDD, schizoaffective disorder, polysubstance use disorder. Rose presented to the ED after increasing depression, SI and a plan to drown herself in her bathtub. She was released from [facility] and subsequently relapsed by injecting heroin and reportedly drinking 2 pints of alcohol. Upon admission to the unit skin check is remarkable for multiple scars on her arms, and an approximately 2? bruise like spot on her L foot-she reports that it has decreased in size since leaving [facility] and has no recollection of how or what happened. During the admission process Rose was shaking and tearful, feeling hopeless and does not want to be here when everyone else in her life is not. She was on receiving MTD at [facility] per COWS score, last administration was 5 mg on 01/13/25- she is on COWS and CIWA- she scored 7 on COWS and 14 on CIWA upon admission- one time dose 5 mg ordered and given, placed on MTD taper. Rose reports not being able to sleep and wakes up crying when she does- she reports dreaming of her family while asleep and wakes up wanting to . Known to . Rose is a 2 pack a day smoker-NRT and consult ordered. She is familiar with the unit. She signed a CV with the provider and is placed on 15 minute checks for safety.
[2025-01-19 19:47] VITALS: BP 152/63; PULSE 84; RESP 18; TEMP 37.1; O2SAT 99
[2025-01-19] MEDS: traZODone HCL 50 MG TABLET PO (21:38)
[2025-01-20] MEDS: LORazepam 1 MG TABLET 2 MG PO ×5 (03:12→21:12)
[2025-01-20] MEDS: traZODone HCL 50 MG TABLET PO ×2 (03:13→21:11)
[2025-01-20] MEDS: hydrOXYzine HCL 50 MG TABLET PO ×2 (03:13→15:02)
[2025-01-20] MEDS: methADONE HCl 20 MG/2 ML ORAL.CONC 5 MG PO ×2 (07:44→18:52)
[2025-01-20 07:47] VITALS: BP 107/60; PULSE 81; RESP 16; TEMP 36.4; O2SAT 100
[2025-01-20 08:00] VITALS: PULSE 100
[2025-01-20] MEDS: Thiamine HCL 100 MG TABLET PO (08:21)
[2025-01-20] MEDS: clonazePAM 0.5 MG TABLET PO ×3 (08:21→21:11)
[2025-01-20] MEDS: Nitrofurantoin Monohyd/M-Cryst 100 MG CAPSULE PO ×2 (08:21→16:29)
[2025-01-20] MEDS: Multivitamin TABLET 1 TAB PO (08:21)
[2025-01-20] MEDS: Folic Acid 1 MG TABLET PO (08:21)
[2025-01-20] MEDS: cloNIDine HCL 0.1 MG TABLET PO (08:21)
[2025-01-20] MEDS: Nicotine 21 MG PATCH.TD24 TRANSDERMA (08:25)
--- NOTE | 2025-01-20 09:25 | P.HPPS_ITS ---
HPI Date of Service: 01/20/25 Chief Complaint: depression/SI Sources of Information: patient interviewed, chart reviewed and crisis/core team assessment reviewed HPI Subjective Notes: Conditional Voluntary and 3 Day Narrative: Patient is a 44-year-old female with history of schizoaffective disorder, bipolar type, severe PTSD, opioid and alcohol abuse who presents for depression and SI in the face of 2 day relapse. Patient reports that after last discharge June 2024, she was doing overall well and remain sober for 8 months, despite running out of her medication. A few weeks ago, there was damage to her trailer and she had to stay with a friend, on the couch who was living in [facility]; there she relapsed for 3 days on IV heroin and alcohol. However, she quickly got herself to [facility] detox which she completed over a 10 days; she was discharged however without a plan or medications were place to live and again relapsed for 2 days with alcohol and opiates. Patient felt overwhelmingly depressed, crying nonstop, nightmares, discouraged and hopeless; she became suicidal with thoughts to drown herself in the bathtub however self presented. Patient seen on 01/19/25 Past Psychiatric History: IP: 5+ per pt past SA, overdose OP: No current team Leidy schizoaffective disorder: hx of manic episodes, while sober, that last from 3-7 days and include racing thoughts, rapid speech, hyperactivity, excessive spending/shopping, buying scratch tickets.. no sleep, risky behaviors? friends notice these changes and post episode she gets very depressed. History of AH, independent of mood Medical Evaluation Reviewed: Yes [facility] Medical History (Updated 01/21/25 @ 12:13 by Eric Chand MD) Alcohol use disorder Opioid use disorder Schizoaffective disorder, bipolar type Polysubstance use disorder Asthma PTSD (post-traumatic stress disorder) Recurrent major depression Family History: Mother: Schizoaffective disorder, bipolar type Social History: Pt lives in a trailer she owns. Anniversary of mom's in February Substance History: Opioid and alcohol use disorder Trauma History: Severe an extensive trauma throughout lifetime, starting in childhood Diagnostics Vital Signs (24Hr): Vital Signs - 24 hr 01/19/25 14:41 01/19/25 19:47 01/20/25 07:47 Temperature 97.1 F 98.7 F 97.6 F Pulse Rate 71 84 81 Respiratory Rate 20 18 16 Blood Pressure 153/78 H 152/63 H 107/60 Pulse Oximetry 99 99 100 Oxygen Delivery Method Room Air Room Air BMI result Body Mass Index 30.2 Labs 01/18/25 18:00 01/19/25 13:59 Labs: Laboratory Results - last 48 hr 01/18/25 01/18/25 01/19/25 18:00 23:23 13:59 WBC 4.3 L RBC 4.33 Hgb 12.3 Hct 37.9 MCV 87.5 MCH 28.4 MCHC 32.5 RDW 14.7 Plt Count 197 D MPV 11.7 Immature Gran % (Auto) 0.0 Neut % (Auto) 40.7 L Lymph % (Auto) 42.2 H Benson % (Auto) 14.5 H Eos % (Auto) 1.9 Baso % (Auto) 0.7 Lymph # (Auto) 1.8 Benson # (Auto) 0.6 Eos # (Auto) 0.1 Baso # (Auto) 0.0 Abs Immat Gran (auto) 0.00 Absolute Neuts (auto) 1.7 L Absolute Nucleated RBC 0.000 Nucleated RBC % (auto) 0.0 Sodium 137 139 Potassium 4.5 4.0 Chloride 107 104 Carbon Dioxide 24 27 Anion Gap 11 L 12 BUN 10 8 L Creatinine 0.98 0.74 Estim Creat Clear Calc 66.0 87.4 Estimated GFR > 60 > 60 Random Glucose 121 H 100 Calcium 8.6 9.3 D Magnesium 1.8 Total Bilirubin 0.2 0.4 AST 33 H 33 H ALT 13 13 Alkaline Phosphatase 100 105 Total Protein 7.2 7.9 Albumin 3.6 3.8 Triglycerides Cholesterol LDL Cholesterol, Calc HDL Cholesterol Lipase 12 Urine Color Yellow Urine Appearance Clear Urine pH 5.5 Ur Specific [place] 1.020 Urine Protein Negative Urine Glucose (UA) Negative Urine Ketones Negative Urine Blood Negative Urine Nitrite Positive H Ur Leukocyte Esterase Moderate (2+) H Urine RBC 0-2 Urine WBC >50 H Ur Squamous Epith Cells 6-10 Urine Bacteria 4+ Hyaline Casts 0-2 Urine Test NEGATIVE Salicylates < 5.0 L Urine Opiates Screen POSITIVE H Ur Buprenorphine Scrn Not Detected Ur Oxycodone Screen Not Detected Urine Methadone Screen Positive H Urine Fentanyl Screen POSITIVE H Acetaminophen < 3 Ur Barbiturates Screen Not Detected Ur Phencyclidine Scrn Not Detected Ur Amphetamines Screen Not Detected U Benzodiazepines Scrn POSITIVE H Urine Cocaine Screen POSITIVE H U Marijuana (THC) Screen POSITIVE H Ethyl Alcohol < 10 01/20/25 08:26 WBC RBC Hgb Hct MCV MCH MCHC RDW Plt Count MPV Immature Gran % (Auto) Neut % (Auto) Lymph % (Auto) Benson % (Auto) Eos % (Auto) Baso % (Auto) Lymph # (Auto) Benson # (Auto) Eos # (Auto) Baso # (Auto) Abs Immat Gran (auto) Absolute Neuts (auto) Absolute Nucleated RBC Nucleated RBC % (auto) Sodium Potassium Chloride Carbon Dioxide Anion Gap BUN Creatinine Estim Creat Clear Calc Estimated GFR Random Glucose Calcium Magnesium Total Bilirubin AST ALT Alkaline Phosphatase Total Protein Albumin Triglycerides 120 Cholesterol 179 LDL Cholesterol, Calc 96 HDL Cholesterol 59 Lipase Urine Color Urine Appearance Urine pH Ur Specific [place] Urine Protein Urine Glucose (UA) Urine Ketones Urine Blood Urine Nitrite Ur Leukocyte Esterase Urine RBC Urine WBC Ur Squamous Epith Cells Urine Bacteria Hyaline Casts Urine Test Salicylates Urine Opiates Screen Ur Buprenorphine Scrn Ur Oxycodone Screen Urine Methadone Screen Urine Fentanyl Screen Acetaminophen Ur Barbiturates Screen Ur Phencyclidine Scrn Ur Amphetamines Screen U Benzodiazepines Scrn Urine Cocaine Screen U Marijuana (THC) Screen Ethyl Alcohol Meds/Allergies Meds Home Medications ?Medication ?Instructions ?Recorded ?Confirmed ?Type methadone 10 mg/mL oral syringe 100 mg PO DAILY 05/21/24 01/19/25 History (FOR ORAL USE ONLY) clonidine HCl 0.1 mg tablet 0.1 mg PO BID 01/18/25 01/18/25 History cyclobenzaprine 5 mg tablet 5 mg PO TID PRN Muscle Pain 01/18/25 01/18/25 History hydroxyzine pamoate 50 mg capsule 50 mg PO BID PRN Anxiety 01/18/25 01/18/25 History nifedipine 60 mg tablet,extended 60 mg PO DAILY 01/18/25 01/18/25 History release 24 hr Allergies Allergies Allergy/AdvReac Type Severity Reaction Status Date / Time Penicillins Allergy Intermediate HIVES Verified 01/18/25 16:49 Mental Status Exam Mental Status Exam Narrative: Pt is alert and oriented; behavior is tearful, emotionally distraught, isolative; patient is not in distress; dressed in hospital attire, disheveled; mood is described as depressed, hopeless and affect congruent, tearful, downcast; eye contact appropriate; Speech is normal rate, volume and prosody and not pressured; both psychomotor agitation/retardation present; thought process is organized and goal directed; Thought content is on feeling hopeless; otherwise pertinent to relevant topics and without any delusional content, paranoid ideations or grandiosity; positive for SI; no HI. Denied assess AVH. Patients insight and judgment impaired. Assessment & Plan Assessment & Plan (1) Schizoaffective disorder, bipolar type: Status: Acute Code(s): F25.0 - Schizoaffective disorder, bipolar type (2) PTSD (post-traumatic stress disorder): Status: Acute Code(s): F43.10 - Post-traumatic stress disorder, unspecified (3) Opioid use disorder: Status: Acute Code(s): F11.90 - Opioid use, unspecified, uncomplicated (4) Alcohol use disorder: Status: Acute Code(s): F10.90 - Alcohol use, unspecified, uncomplicated Plan HPI: Patient is a 44-year-old female with history of schizoaffective disorder, bipolar type, severe PTSD, opioid and alcohol abuse who presents for depression and SI in the face of 2 day relapse. Patient reports that after last discharge June 2024, she was doing overall well and remain sober for 8 months, despite running out of her medication. A few weeks ago, there was damage to her trailer and she had to stay with a friend, on the couch who was living in [facility]; there she relapsed for 3 days on IV heroin and alcohol. However, she quickly got herself to [facility] detox which she completed over a 10 days; she was discharged however without a plan or medications were place to live and again relapsed for 2 days with alcohol and opiates. Patient felt overwhelmingly depressed, crying nonstop, nightmares, discouraged and hopeless; she became suicidal with thoughts to drown herself in the bathtub however self presented. Formulation/clinical reasoning: Patient has done remarkably well, remain sober for 8 months even off medications and without MAT. She also got herself help quickly after relapse. Patient however very depressed, tearful. Wants to get back on medications; ambivalent about MAT. Reviewed indications from last admission (see below); patient would like to get back on some medications but is unsure efficacy. Wants help with opiate withdrawal however does not want to get on methadone. Some alcohol withdrawal Medications: -Patient does not want Seroquel since she says it causes restless legs; instead wants to get on doxepin for sleep; wants to use Thorazine as a p.r.n. since it is better tolerated. Does not want any antihypertensive and wants nifedipine discontinued; she says she was only hypertensive because she was in withdrawal. Plan: CV Q 15 minute checks CIWA for now Start doxepin 20 mg q.h.s. Start Thorazine 50 mg p.r.n. for anxiety/agitation Start prazosin 1 mg q.h.s.; patient says she wakes up crying from nightmares Clonazepam 0.5 mg t.i.d.; this was restarted in the ED; patient has been on it for months, remaining sober and without abusing it; will continue DC nifedipine; patient says no history of hypertension other than during withdrawal; does not want Will give another dose of methadone 5 mg and then start her off with 10 mg in the morning and taper down from there; patient likes this plan Will consider other mood stabilizer since history of schizoaffective disorder, bipolar type; she does not want Seroquel at this time ?Betamethasone Dipropion Augmented (Betamethasone Dip Aug 0.05% Cr 15 Gm Tube) 1 appl TOPICAL BID [facility]; Protocol ?Fluticasone Propionate (Fluticasone Propionate 100 Mcg Blst.W.Dev) 2 puff INHALE RBID [facility] medications from last admission: BuSpar 15 mg t.i.d., Klonopin 0.5 mg t.i.d., doxepin 20 mg q.h.s., pramipexole 0.125 mg q.h.s., Prazosin 4 mg q.h.s., Zoloft 150 mg daily, Seroquel 350 mg q.h.s., Seroquel 100 mg b.i.d. 0 900/1400 and with 50 mg t.i.d. p.r.n. Patient educated on: diagnosis, medication risk/benefits, substance abuse and therapeutic strategies Informed Consent: understands Reason for continued inpatient stay Substantial Risk for: rapid decompensation Statement Statement: I have reviewed the history and physical and performed a pertinent examination on my patient. No changes have occurred unless specified. If the History and Physical was not performed prior to admission, the Hospitalist's service will be consulted for completing the admission physical. Time Spent With Patient Time: Total time managing care of this patient today ____ minutes.
[2025-01-20 09:35] LABS: Estimated Average Glucose 111 mg/dL; Hemoglobin A1C 133.8083 umol/L; Hemoglobin A1c % 5.5 % (<6.0); Total Hemoglobin (HGBA1C) 3688.8058 umol/L
[2025-01-20 11:46] VITALS: BP 102/56
[2025-01-20] MEDS: Cyclobenzaprine HCl 5 MG TABLET PO (12:52)
[2025-01-20] MEDS: Acetaminophen 325 MG TABLET 650 MG PO ×2 (12:52→21:11)
[2025-01-20 20:00] VITALS: BP 139/60; PULSE 88; RESP 16; TEMP 36.4; O2SAT 98
[2025-01-20] MEDS: Prazosin HCL 1 MG CAPSULE PO (21:11)
[2025-01-20] MEDS: Doxepin HCl 10 MG CAPSULE 20 MG PO (21:11)
[2025-01-21] VITALS: PULSE 82
[2025-01-21] MEDS: LORazepam 1 MG TABLET 2 MG PO ×3 (00:30→22:40)
[2025-01-21] MEDS: traZODone HCL 50 MG TABLET PO (00:30)
[2025-01-21] MEDS: LORazepam 1 MG TABLET PO ×2 (04:41→11:41)
[2025-01-21 07:00] VITALS: BMI 32.5
[2025-01-21] MEDS: methADONE HCl 20 MG/2 ML ORAL.CONC 10 MG PO (07:45)
[2025-01-21 08:00] VITALS: BP 153/98; PULSE 82; TEMP 36.4; O2SAT 98
[2025-01-21] MEDS: Nitrofurantoin Monohyd/M-Cryst 100 MG CAPSULE PO ×2 (09:24→18:42)
[2025-01-21] MEDS: Acetaminophen 325 MG TABLET 650 MG PO ×2 (09:24→22:37)
[2025-01-21] MEDS: clonazePAM 0.5 MG TABLET PO ×3 (09:24→22:39)
[2025-01-21] MEDS: hydrOXYzine HCL 50 MG TABLET PO ×2 (09:25→15:14)
[2025-01-21] MEDS: Multivitamin TABLET 1 TAB PO (09:25)
[2025-01-21] MEDS: Folic Acid 1 MG TABLET PO (09:25)
[2025-01-21] MEDS: Thiamine HCL 100 MG TABLET PO (09:25)
[2025-01-21] MEDS: Cyclobenzaprine HCl 5 MG TABLET PO ×3 (09:25→22:39)
[2025-01-21] MEDS: Nicotine 21 MG PATCH.TD24 TRANSDERMA (09:26)
[2025-01-21] MEDS: chlorproMAZINE HCl 25 MG TABLET 50 MG PO (11:41)
--- NOTE | 2025-01-21 12:22 | P.PNPSI_ITS ---
Subjective Subjective Date of Service: 01/21/25 Reason For Visit: depression/SI Interim History: Met with patient; discussed with team Patient reports she is very depressed, agitated and sometimes. Having auditory hallucinations that say mean things; says she is having panic attacks and not sleeping at all. Also so as opioid withdrawal. Discussed methadone and patient will get another 5 mg and then continue taper; agrees to get back on Seroquel 350 mg q.h.s. since not sleeping. -discussed 3 day notice and patient said she may retract Mental Status Exam Mental Status Exam Narrative: Pt is alert and oriented; behavior is tearful, emotionally distraught, isolative; patient is not in distress; dressed in hospital attire, disheveled; mood is described as depressed...agitated and affect congruent, tearful, downcast, angry; eye contact appropriate; Speech is normal rate, volume and prosody and not pressured; both psychomotor agitation/retardation present; thought process is organized and goal directed; Thought content is on feeling hopeless; otherwise pertinent to relevant topics and without any delusional content, paranoid ideations or grandiosity; positive for SI; no HI. Denied assess AVH. Patients insight and judgment impaired. Diagnostics Vital Signs (24Hr): Vital Signs - 24 hr 01/20/25 20:00 01/21/25 08:00 Temperature 97.6 F 97.5 F Pulse Rate 88 82 Respiratory Rate 16 Blood Pressure 139/60 153/98 H Pulse Oximetry 98 98 Oxygen Delivery Method Room Air BMI result Body Mass Index 32.5 Labs 01/18/25 18:00 01/19/25 13:59 Labs: Laboratory Results - last 48 hr 01/19/25 01/20/25 13:59 08:26 Sodium 139 Potassium 4.0 Chloride 104 Carbon Dioxide 27 Anion Gap 12 BUN 8 L Creatinine 0.74 Estim Creat Clear Calc 87.4 Estimated GFR > 60 Random Glucose 100 Estimat Average Glucose 111 Hemoglobin A1c % 5.5 Calcium 9.3 D Total Bilirubin 0.4 AST 33 H ALT 13 Alkaline Phosphatase 105 Total Protein 7.9 Albumin 3.8 Triglycerides Cancelled Cholesterol Cancelled LDL Cholesterol, Calc Cancelled HDL Cholesterol Cancelled TSH Cancelled Free T4 Cancelled Medications Medications Current Medications Acetaminophen (Acetaminophen 325 Mg Tablet) 650 mg PO Q6H PRN PRN Reason: Headache/Pain, Scale 1-10 Last Admin: 01/21/25 09:24 Dose: 650 mg Al Hydroxide/Mg Hydroxide (Magnesium Hydrox/Alum Hydrox 30 Ml Oral.Susp) 30 ml PO Q6H PRN PRN Reason: Heartburn/Nausea Albuterol Sulfate (Albuterol Sulfate 90 Mcg 8 Gm Inhaler) 2 puff INHALE Q6H PRN PRN Reason: wheezing Chlorpromazine HCl (Chlorpromazine Hcl 25 Mg Tablet) 50 mg PO TID PRN PRN Reason: severe anxiety Last Admin: 01/21/25 11:41 Dose: 50 mg Clonazepam (Clonazepam 0.5 Mg Tablet) 0.5 mg PO TID [facility] Last Admin: 01/21/25 09:24 Dose: 0.5 mg Cyclobenzaprine HCl (Cyclobenzaprine Hcl 5 Mg Tablet) 5 mg PO TID PRN PRN Reason: Muscle Pain Last Admin: 01/21/25 09:25 Dose: 5 mg Doxepin HCl (Doxepin Hcl 10 Mg Capsule) 20 mg PO BEDTIME [facility] Last Admin: 01/20/25 21:11 Dose: 20 mg Folic Acid (Folic Acid 1 Mg Tablet) 1 mg PO DAILY [facility] Last Admin: 01/21/25 09:25 Dose: 1 mg Hydroxyzine HCl (Hydroxyzine Hcl 50 Mg Tablet) 50 mg PO BID PRN PRN Reason: Anxiety Last Admin: 01/21/25 09:25 Dose: 50 mg Lorazepam (Lorazepam 1 Mg Tablet) 1 mg PO Q2H PRN PRN Reason: CIWA 6-10 Last Admin: 01/21/25 11:41 Dose: 1 mg Lorazepam (Lorazepam 1 Mg Tablet) 2 mg PO Q2H PRN PRN Reason: CIWA 11 and above Last Admin: 01/21/25 09:26 Dose: 2 mg Magnesium Hydroxide (Milk Of Magnesia 30 Ml Oral.Susp) 30 ml PO DAILY PRN PRN Reason: Constipation Methadone HCl (Methadone Hcl 20 Mg/2 Ml Oral.Conc) 10 mg PO DAILY@0800 [facility] Last Admin: 01/21/25 07:45 Dose: 10 mg Multivitamins/Vitamin C (Multivitamin Tablet) 1 tab PO DAILY [facility] Last Admin: 01/21/25 09:25 Dose: 1 tab Nicotine (Nicotine 21 Mg Patch.Td24) 21 mg TRANSDERMA DAILY PRN PRN Reason: smoking cessation Last Admin: 01/21/25 09:26 Dose: 21 mg Nicotine Polacrilex (Nicotine Polacrilex 2 Mg Gum) 4 mg BUCCAL Q2H PRN PRN Reason: Nicotine Cravings Last Admin: 01/19/25 14:20 Dose: 4 mg Nitrofurantoin Macrocrystals (Nitrofurantoin Monohyd/M-Cryst 100 Mg Capsule) 100 mg PO BIDWM [facility] Last Admin: 01/21/25 09:24 Dose: 100 mg Olanzapine (Olanzapine 5 Mg Tablet) 5 mg PO TID PRN PRN Reason: agitation Last Admin: 01/19/25 17:42 Dose: 5 mg Prazosin HCl (Prazosin Hcl 1 Mg Capsule) 1 mg PO BEDTIME [facility]; Protocol Last Admin: 01/20/25 21:11 Dose: 1 mg Thiamine HCl (Thiamine Hcl 100 Mg Tablet) 100 mg PO DAILY [facility] Last Admin: 01/21/25 09:25 Dose: 100 mg Trazodone HCl (Trazodone Hcl 50 Mg Tablet) 50 mg PO BEDTIME MRX1 PRN PRN Reason: Insomnia Last Admin: 01/21/25 00:30 Dose: 50 mg Allergies Allergies Allergy/AdvReac Type Severity Reaction Status Date / Time Penicillins Allergy Intermediate HIVES Verified 01/18/25 16:49 Assessment & Plan Assessment & Plan (1) Schizoaffective disorder, bipolar type: Status: Acute Code(s): F25.0 - Schizoaffective disorder, bipolar type (2) PTSD (post-traumatic stress disorder): Status: Acute Code(s): F43.10 - Post-traumatic stress disorder, unspecified (3) Opioid use disorder: Status: Acute Code(s): F11.90 - Opioid use, unspecified, uncomplicated (4) Alcohol use disorder: Status: Acute Code(s): F10.90 - Alcohol use, unspecified, uncomplicated Plan HPI: Patient is a 44-year-old female with history of schizoaffective disorder, bipolar type, severe PTSD, opioid and alcohol abuse who presents for depression and SI in the face of 2 day relapse. Patient reports that after last discharge June 2024, she was doing overall well and remain sober for 8 months, despite running out of her medication. A few weeks ago, there was damage to her trailer and she had to stay with a friend, on the couch who was living in [facility]; there she relapsed for 3 days on IV heroin and alcohol. However, she quickly got herself to [facility] detox which she completed over a 10 days; she was discharged however without a plan or medications were place to live and again relapsed for 2 days with alcohol and opiates. Patient felt overwhelmingly depressed, crying nonstop, nightmares, discouraged and hopeless; she became suicidal with thoughts to drown herself in the bathtub however self presented. Formulation/clinical reasoning: Patient has done remarkably well, remain sober for 8 months even off medications and without MAT. She also got herself help quickly after relapse. Patient however very depressed, tearful. Wants to get back on medications; ambivalent about MAT. Reviewed indications from last admission (see below); patient would like to get back on some medications but is unsure efficacy. Wants help with opiate withdrawal however does not want to get on methadone. Some alcohol withdrawal Medications: -Patient does not want Seroquel since she says it causes restless legs; instead wants to get on doxepin for sleep; wants to use Thorazine as a p.r.n. since it is better tolerated. Does not want any antihypertensive and wants nifedipine discontinued; she says she was only hypertensive because she was in withdrawal. Hospital course: 01/21 Patient reports she is very depressed, agitated and sometimes. Having auditory hallucinations that say mean things; says she is having panic attacks and not sleeping at all. Also so as opioid withdrawal. Discussed methadone and patient will get another 5 mg and then continue taper; agrees to get back on Seroquel 350 mg q.h.s. since not sleeping. -discussed 3 day notice and patient said she may retract -scoring on CIWA but likely more due to anxiety as patient only drank for 2 days Plan: CV Q 15 minute checks CIWA for now Restart Seroquel 350 mg q.h.s.; patient does need a mood stabilizer and has not been able to sleep; this has helped in the past Restart pramipexole 0.125 mg q.h.s for restless leg due to Seroquel; patient understands and feels that help of Seroquel is worth side effects Continue doxepin 20 mg q.h.s. Continue Thorazine 50 mg p.r.n. for anxiety/agitation Start prazosin 1 mg q.h.s.; patient says she wakes up crying from nightmares Clonazepam 0.5 mg t.i.d.; this was restarted in the ED; patient has been on it for months, remaining sober and without abusing it; will continue DC nifedipine; patient says no history of hypertension other than during withdrawal; does not want Will give another dose of methadone 5 mg and then start her off with 10 mg in the morning and taper down from there; patient likes this plan Will consider other mood stabilizer since history of schizoaffective disorder, bipolar type; she does not want Seroquel at this time ?Betamethasone Dipropion Augmented (Betamethasone Dip Aug 0.05% Cr 15 Gm Tube) 1 appl TOPICAL BID [facility]; Protocol ?Fluticasone Propionate (Fluticasone Propionate 100 Mcg Blst.W.Dev) 2 puff INHALE RBID [facility] medications from last admission: BuSpar 15 mg t.i.d., Klonopin 0.5 mg t.i.d., doxepin 20 mg q.h.s., pramipexole 0.125 mg q.h.s., Prazosin 4 mg q.h.s., Zoloft 150 mg daily, Seroquel 350 mg q.h.s., Seroquel 100 mg b.i.d. 0 900/1400 and with 50 mg t.i.d. p.r.n. Patient educated on: diagnosis, medication risk/benefits, substance abuse and therapeutic strategies Informed Consent: understands Reason for continued inpatient stay Substantial Risk for: rapid decompensation Time Spent With Patient Time: Total time managing care of this patient today ____ minutes.
[2025-01-21] MEDS: methADONE HCl 20 MG/2 ML ORAL.CONC 5 MG PO (18:42)
[2025-01-21 20:00] VITALS: BP 153/81; PULSE 82; TEMP 36.4; O2SAT 98
[2025-01-21 22:23] VITALS: PULSE 71
[2025-01-21] MEDS: Doxepin HCl 10 MG CAPSULE 20 MG PO (22:34)
[2025-01-21] MEDS: Pramipexole Di-HCL 0.125 MG TABLET PO (22:34)
[2025-01-21] MEDS: QUEtiapine Fumarate 50 MG TABLET 350 MG PO (22:35)
[2025-01-21 22:39] VITALS: BP 138/102
[2025-01-21] MEDS: Prazosin HCL 1 MG CAPSULE 2 MG PO (22:39)
[2025-01-22] MEDS: LORazepam 1 MG TABLET 2 MG PO (05:25)
[2025-01-22] MEDS: chlorproMAZINE HCl 100 MG TABLET PO ×3 (05:26→17:00)
[2025-01-22] MEDS: methADONE HCl 20 MG/2 ML ORAL.CONC 10 MG PO (07:53)
[2025-01-22 08:00] VITALS: BP 109/55; PULSE 70; TEMP 36.5; O2SAT 100
[2025-01-22] MEDS: clonazePAM 0.5 MG TABLET PO ×3 (08:51→21:48)
[2025-01-22] MEDS: Thiamine HCL 100 MG TABLET PO (08:52)
[2025-01-22] MEDS: Folic Acid 1 MG TABLET PO (08:52)
[2025-01-22] MEDS: Multivitamin TABLET 1 TAB PO (08:52)
[2025-01-22] MEDS: Cyclobenzaprine HCl 5 MG TABLET PO ×2 (08:56→21:48)
[2025-01-22] MEDS: hydrOXYzine HCL 50 MG TABLET PO ×2 (08:57→21:47)
[2025-01-22] MEDS: Nitrofurantoin Monohyd/M-Cryst 100 MG CAPSULE PO ×2 (10:48→16:11)
--- NOTE | 2025-01-22 16:45 | P.PNPSI_ITS ---
Subjective Subjective Date of Service: 01/22/25 Reason For Visit: depression/SI Interim History: Met with patient; discussed with team Patient reports she slept better last night with Seroquel and is grateful. She continues to have AH however and remains quite agitated. Discussed taking p.r.n. Thorazine and she says she has a hard time asking for it but agrees it is helpful. Mental Status Exam Mental Status Exam Narrative: Pt is alert and oriented; behavior is intermittently tearful, isolative, but maybe a little more calm; patient is not in distress; dressed in hospital attire, disheveled; mood is described as agitated and affect congruent, constricted, downcast; eye contact appropriate; Speech is normal rate, volume and prosody and not pressured; both psychomotor agitation/retardation present; thought process is organized and goal directed; Thought content is on treatment; otherwise pertinent to relevant topics and without any delusional content, paranoid ideations or grandiosity; intermittent SI; no HI. Denied assess AVH. Patients insight and judgment impaired but improving some. Diagnostics Vital Signs (24Hr): Vital Signs - 24 hr 01/21/25 20:00 01/21/25 22:39 01/22/25 08:00 Temperature 97.5 F 97.7 F Pulse Rate 82 70 Blood Pressure 153/81 H 138/102 H 109/55 L Pulse Oximetry 98 100 Oxygen Delivery Method Room Air Room Air BMI result Body Mass Index 32.5 Labs 01/18/25 18:00 01/19/25 13:59 Medications Medications Current Medications Acetaminophen (Acetaminophen 325 Mg Tablet) 650 mg PO Q6H PRN PRN Reason: Headache/Pain, Scale 1-10 Last Admin: 01/21/25 22:37 Dose: 650 mg Al Hydroxide/Mg Hydroxide (Magnesium Hydrox/Alum Hydrox 30 Ml Oral.Susp) 30 ml PO Q6H PRN PRN Reason: Heartburn/Nausea Albuterol Sulfate (Albuterol Sulfate 90 Mcg 8 Gm Inhaler) 2 puff INHALE Q6H PRN PRN Reason: wheezing Chlorpromazine HCl (Chlorpromazine Hcl 100 Mg Tablet) 100 mg PO TID PRN PRN Reason: severe anxiety Last Admin: 01/22/25 10:51 Dose: 100 mg Clonazepam (Clonazepam 0.5 Mg Tablet) 0.5 mg PO TID IJEOMA Last Admin: 01/22/25 16:11 Dose: 0.5 mg Cyclobenzaprine HCl (Cyclobenzaprine Hcl 5 Mg Tablet) 5 mg PO TID PRN PRN Reason: Muscle Pain Last Admin: 01/22/25 08:56 Dose: 5 mg Doxepin HCl (Doxepin Hcl 10 Mg Capsule) 20 mg PO BEDTIME [facility] Last Admin: 01/21/25 22:34 Dose: 20 mg Folic Acid (Folic Acid 1 Mg Tablet) 1 mg PO DAILY [facility] Last Admin: 01/22/25 08:52 Dose: 1 mg Hydroxyzine HCl (Hydroxyzine Hcl 50 Mg Tablet) 50 mg PO BID PRN PRN Reason: Anxiety Last Admin: 01/22/25 08:57 Dose: 50 mg Magnesium Hydroxide (Milk Of Magnesia 30 Ml Oral.Susp) 30 ml PO DAILY PRN PRN Reason: Constipation Methadone HCl (Methadone Hcl 20 Mg/2 Ml Oral.Conc) 10 mg PO DAILY@0800 [facility] Last Admin: 01/22/25 07:53 Dose: 10 mg Multivitamins/Vitamin C (Multivitamin Tablet) 1 tab PO DAILY [facility] Last Admin: 01/22/25 08:52 Dose: 1 tab Nicotine (Nicotine 21 Mg Patch.Td24) 21 mg TRANSDERMA DAILY PRN PRN Reason: smoking cessation Last Admin: 01/21/25 09:26 Dose: 21 mg Nicotine Polacrilex (Nicotine Polacrilex 2 Mg Gum) 4 mg BUCCAL Q2H PRN PRN Reason: Nicotine Cravings Last Admin: 01/19/25 14:20 Dose: 4 mg Nitrofurantoin Macrocrystals (Nitrofurantoin Monohyd/M-Cryst 100 Mg Capsule) 100 mg PO BIDWM [facility] Last Admin: 01/22/25 16:11 Dose: 100 mg Olanzapine (Olanzapine 5 Mg Tablet) 5 mg PO TID PRN PRN Reason: agitation Last Admin: 01/19/25 17:42 Dose: 5 mg Pramipexole Dihydrochloride (Pramipexole Di-Hcl 0.125 Mg Tablet) 0.125 mg PO BEDTIME [facility] Last Admin: 01/21/25 22:34 Dose: 0.125 mg Prazosin HCl (Prazosin Hcl 1 Mg Capsule) 2 mg PO BEDTIME [facility]; Protocol Last Admin: 01/21/25 22:39 Dose: 2 mg Quetiapine Fumarate (Quetiapine Fumarate 50 Mg Tablet) 350 mg PO BEDTIME [facility] Last Admin: 01/21/25 22:35 Dose: 350 mg Thiamine HCl (Thiamine Hcl 100 Mg Tablet) 100 mg PO DAILY [facility] Last Admin: 01/22/25 08:52 Dose: 100 mg Trazodone HCl (Trazodone Hcl 50 Mg Tablet) 50 mg PO BEDTIME MRX1 PRN PRN Reason: Insomnia Last Admin: 01/21/25 00:30 Dose: 50 mg Allergies Allergies Allergy/AdvReac Type Severity Reaction Status Date / Time Penicillins Allergy Intermediate HIVES Verified 01/18/25 16:49 Assessment & Plan Assessment & Plan (1) Schizoaffective disorder, bipolar type: Status: Acute Code(s): F25.0 - Schizoaffective disorder, bipolar type (2) PTSD (post-traumatic stress disorder): Status: Acute Code(s): F43.10 - Post-traumatic stress disorder, unspecified (3) Opioid use disorder: Status: Acute Code(s): F11.90 - Opioid use, unspecified, uncomplicated (4) Alcohol use disorder: Status: Acute Code(s): F10.90 - Alcohol use, unspecified, uncomplicated Plan HPI: Patient is a 44-year-old female with history of schizoaffective disorder, bipolar type, severe PTSD, opioid and alcohol abuse who presents for depression and SI in the face of 2 day relapse. Patient reports that after last discharge June 2024, she was doing overall well and remain sober for 8 months, despite running out of her medication. A few weeks ago, there was damage to her trailer and she had to stay with a friend, on the couch who was living in [facility]; there she relapsed for 3 days on IV heroin and alcohol. However, she quickly got herself to [facility] detox which she completed over a 10 days; she was discharged however without a plan or medications were place to live and again relapsed for 2 days with alcohol and opiates. Patient felt overwhelmingly depressed, crying nonstop, nightmares, discouraged and hopeless; she became suicidal with thoughts to drown herself in the bathtub however self presented. Formulation/clinical reasoning: Patient has done remarkably well, remain sober for 8 months even off medications and without MAT. She also got herself help quickly after relapse. Patient however very depressed, tearful. Wants to get back on medications; ambivalent about MAT. Reviewed indications from last admission (see below); patient would like to get back on some medications but is unsure efficacy. Wants help with opiate withdrawal however does not want to get on methadone. Some alcohol withdrawal Medications: -Patient does not want Seroquel since she says it causes restless legs; instead wants to get on doxepin for sleep; wants to use Thorazine as a p.r.n. since it is better tolerated. Does not want any antihypertensive and wants nifedipine discontinued; she says she was only hypertensive because she was in withdrawal. Hospital course: 01/21 Patient reports she is very depressed, agitated and sometimes. Having auditory hallucinations that say mean things; says she is having panic attacks and not sleeping at all. Also so as opioid withdrawal. Discussed methadone and patient will get another 5 mg and then continue taper; agrees to get back on Seroquel 350 mg q.h.s. since not sleeping. -discussed 3 day notice and patient said she may retract -scoring on CIWA but likely more due to anxiety as patient only drank for 2 days 01/22 Patient reports she slept better last night with Seroquel and is grateful. She continues to have AH however and remains quite agitated. Discussed taking p.r.n. Thorazine and she says she has a hard time asking for it but agrees it is helpful. -patient open to substance abuse program; also wants to get on Vivitrol -DC CIWA and cows; will continue with methadone taper Plan: CV Q 15 minute checks Methadone 10 mg daily; taper and discontinue; interested in Vivitrol Continue Seroquel 350 mg q.h.s.; patient does need a mood stabilizer and has not been able to sleep; this has helped in the past Continue pramipexole 0.125 mg q.h.s for restless leg due to Seroquel; patient understands and feels that help of Seroquel is worth side effects Continue doxepin 20 mg q.h.s. Continue Thorazine 50 mg p.r.n. for anxiety/agitation Continue prazosin 1 mg q.h.s.; patient says she wakes up crying from nightmares Continue Clonazepam 0.5 mg t.i.d.; this was restarted in the ED; patient has been on it for months, remaining sober and without abusing it; will continue DC nifedipine; patient says no history of hypertension other than during withdrawal; does not want ?Betamethasone Dipropion Augmented (Betamethasone Dip Aug 0.05% Cr 15 Gm Tube) 1 appl TOPICAL BID IJEOMA; Protocol ?Fluticasone Propionate (Fluticasone Propionate 100 Mcg Blst.W.Dev) 2 puff INHALE RBID IJEOMA medications from last admission: BuSpar 15 mg t.i.d., Klonopin 0.5 mg t.i.d., doxepin 20 mg q.h.s., pramipexole 0.125 mg q.h.s., Prazosin 4 mg q.h.s., Zoloft 150 mg daily, Seroquel 350 mg q.h.s., Seroquel 100 mg b.i.d. 0 900/1400 and with 50 mg t.i.d. p.r.n. Patient educated on: diagnosis, medication risk/benefits, substance abuse and therapeutic strategies Informed Consent: understands and further education needed Reason for continued inpatient stay Substantial Risk for: rapid decompensation Time Spent With Patient Time: Total time managing care of this patient today ____ minutes.
[2025-01-22] MEDS: methADONE HCl 20 MG/2 ML ORAL.CONC 2.5 MG PO (16:59)
[2025-01-22 19:44] VITALS: BP 159/95; PULSE 84; RESP 20; TEMP 36.9; O2SAT 98
[2025-01-22] MEDS: Doxepin HCl 10 MG CAPSULE 20 MG PO (21:47)
[2025-01-22] MEDS: Pramipexole Di-HCL 0.125 MG TABLET PO (21:47)
[2025-01-22] MEDS: traZODone HCL 50 MG TABLET PO (21:47)
[2025-01-22] MEDS: Prazosin HCL 1 MG CAPSULE 2 MG PO (21:47)
[2025-01-22] MEDS: QUEtiapine Fumarate 50 MG TABLET PO (21:48)
[2025-01-22] MEDS: QUEtiapine Fumarate 300 MG TABLET PO (21:48)
[2025-01-23] MEDS: Acetaminophen 325 MG TABLET 650 MG PO (05:15)
[2025-01-23] MEDS: hydrOXYzine HCL 50 MG TABLET PO (05:15)
[2025-01-23] MEDS: chlorproMAZINE HCl 100 MG TABLET PO ×2 (05:16→12:01)
[2025-01-23] MEDS: Cyclobenzaprine HCl 5 MG TABLET PO ×3 (05:16→20:26)
[2025-01-23] MEDS: methADONE HCl 20 MG/2 ML ORAL.CONC 10 MG PO (07:43)
[2025-01-23 08:00] VITALS: BP 162/105; PULSE 75; TEMP 36.4; O2SAT 98
[2025-01-23 08:42] VITALS: BP 144/89; PULSE 76
[2025-01-23] MEDS: Thiamine HCL 100 MG TABLET PO (08:45)
[2025-01-23] MEDS: Folic Acid 1 MG TABLET PO (08:45)
[2025-01-23] MEDS: Multivitamin TABLET 1 TAB PO (08:45)
[2025-01-23] MEDS: Nitrofurantoin Monohyd/M-Cryst 100 MG CAPSULE PO ×2 (08:45→17:16)
[2025-01-23] MEDS: clonazePAM 0.5 MG TABLET PO ×3 (08:45→20:27)
--- NOTE | 2025-01-23 10:35 | HO.PSYCHPN ---
Subjective Subjective Date of Service: 01/23/25 Reason For Visit: depression/SI Subjective Notes: Conditional Voluntary and 3 Day Interim History: Patient was seen and discussed in rounds today. Records and plans were reviewed. She has been anxious and flat. CIWA protocol was discontinued. Still having AVH. Eating and sleeping adequately. No SI. P.r.n. medications have been helpful when agitated. Review of Systems Review of Systems Yes all other systems are reviewed and are negative Mental Status Exam Mental Status Exam Narrative: In today's visit she is alert, oriented and pleasant. Normal speech. Minimal eye contact. Affect is appropriate and constricted. No signs of psychosis. Endorses AVH. Cognitively is grossly intact. Able to move all limbs. No gait abnormalities. Judgment is intact Diagnostics Vital Signs (24Hr): Vital Signs - 24 hr 01/22/25 19:44 01/23/25 08:00 01/23/25 08:42 Temperature 98.4 F 97.6 F Pulse Rate 84 75 76 Respiratory Rate 20 Blood Pressure 159/95 H 162/105 H 144/89 H Pulse Oximetry 98 98 Oxygen Delivery Method Room Air Room Air BMI result Body Mass Index 32.5 Labs 01/18/25 18:00 01/19/25 13:59 Medications Medications Current Medications Acetaminophen (Acetaminophen 325 Mg Tablet) 650 mg PO Q6H PRN PRN Reason: Headache/Pain, Scale 1-10 Last Admin: 01/23/25 05:15 Dose: 650 mg Al Hydroxide/Mg Hydroxide (Magnesium Hydrox/Alum Hydrox 30 Ml Oral.Susp) 30 ml PO Q6H PRN PRN Reason: Heartburn/Nausea Albuterol Sulfate (Albuterol Sulfate 90 Mcg 8 Gm Inhaler) 2 puff INHALE Q6H PRN PRN Reason: wheezing Chlorpromazine HCl (Chlorpromazine Hcl 100 Mg Tablet) 100 mg PO TID PRN PRN Reason: severe anxiety Last Admin: 01/23/25 05:16 Dose: 100 mg Clonazepam (Clonazepam 0.5 Mg Tablet) 0.5 mg PO TID IJEOMA Last Admin: 01/23/25 08:45 Dose: 0.5 mg Cyclobenzaprine HCl (Cyclobenzaprine Hcl 5 Mg Tablet) 5 mg PO TID PRN PRN Reason: Muscle Pain Last Admin: 01/23/25 05:16 Dose: 5 mg Doxepin HCl (Doxepin Hcl 10 Mg Capsule) 20 mg PO BEDTIME [facility] Last Admin: 01/22/25 21:47 Dose: 20 mg Folic Acid (Folic Acid 1 Mg Tablet) 1 mg PO DAILY [facility] Last Admin: 01/23/25 08:45 Dose: 1 mg Hydroxyzine HCl (Hydroxyzine Hcl 50 Mg Tablet) 50 mg PO BID PRN PRN Reason: Anxiety Last Admin: 01/23/25 05:15 Dose: 50 mg Magnesium Hydroxide (Milk Of Magnesia 30 Ml Oral.Susp) 30 ml PO DAILY PRN PRN Reason: Constipation Methadone HCl (Methadone Hcl 20 Mg/2 Ml Oral.Conc) 10 mg PO DAILY@0800 [facility] Last Admin: 01/23/25 07:43 Dose: 10 mg Multivitamins/Vitamin C (Multivitamin Tablet) 1 tab PO DAILY [facility] Last Admin: 01/23/25 08:45 Dose: 1 tab Nicotine (Nicotine 21 Mg Patch.Td24) 21 mg TRANSDERMA DAILY PRN PRN Reason: smoking cessation Last Admin: 01/21/25 09:26 Dose: 21 mg Nicotine Polacrilex (Nicotine Polacrilex 2 Mg Gum) 4 mg BUCCAL Q2H PRN PRN Reason: Nicotine Cravings Last Admin: 01/19/25 14:20 Dose: 4 mg Nitrofurantoin Macrocrystals (Nitrofurantoin Monohyd/M-Cryst 100 Mg Capsule) 100 mg PO BIDWM [facility] Last Admin: 01/23/25 08:45 Dose: 100 mg Pramipexole Dihydrochloride (Pramipexole Di-Hcl 0.125 Mg Tablet) 0.125 mg PO BEDTIME [facility] Last Admin: 01/22/25 21:47 Dose: 0.125 mg Prazosin HCl (Prazosin Hcl 1 Mg Capsule) 2 mg PO BEDTIME [facility]; Protocol Last Admin: 01/22/25 21:47 Dose: 2 mg Quetiapine Fumarate (Quetiapine Fumarate 300 Mg Tablet) 300 mg PO BEDTIME [facility] Last Admin: 01/22/25 21:48 Dose: 300 mg Quetiapine Fumarate (Quetiapine Fumarate 50 Mg Tablet) 50 mg PO BEDTIME [facility] Last Admin: 01/22/25 21:48 Dose: 50 mg Thiamine HCl (Thiamine Hcl 100 Mg Tablet) 100 mg PO DAILY [facility] Last Admin: 01/23/25 08:45 Dose: 100 mg Trazodone HCl (Trazodone Hcl 50 Mg Tablet) 50 mg PO BEDTIME MRX1 PRN PRN Reason: Insomnia Last Admin: 01/22/25 21:47 Dose: 50 mg Allergies Allergies Allergy/AdvReac Type Severity Reaction Status Date / Time Penicillins Allergy Intermediate HIVES Verified 01/18/25 16:49 Assessment & Plan Assessment & Plan (1) Schizoaffective disorder, bipolar type: Status: Acute Code(s): F25.0 - Schizoaffective disorder, bipolar type (2) PTSD (post-traumatic stress disorder): Status: Acute Code(s): F43.10 - Post-traumatic stress disorder, unspecified (3) Opioid use disorder: Status: Acute Code(s): F11.90 - Opioid use, unspecified, uncomplicated (4) Alcohol use disorder: Status: Acute Code(s): F10.90 - Alcohol use, unspecified, uncomplicated Plan HPI: Patient is a 44-year-old female with history of schizoaffective disorder, bipolar type, severe PTSD, opioid and alcohol abuse who presents for depression and SI in the face of 2 day relapse. Patient reports that after last discharge June 2024, she was doing overall well and remain sober for 8 months, despite running out of her medication. A few weeks ago, there was damage to her trailer and she had to stay with a friend, on the couch who was living in [facility]; there she relapsed for 3 days on IV heroin and alcohol. However, she quickly got herself to [facility] detox which she completed over a 10 days; she was discharged however without a plan or medications were place to live and again relapsed for 2 days with alcohol and opiates. Patient felt overwhelmingly depressed, crying nonstop, nightmares, discouraged and hopeless; she became suicidal with thoughts to drown herself in the bathtub however self presented. Formulation/clinical reasoning: Patient has done remarkably well, remain sober for 8 months even off medications and without MAT. She also got herself help quickly after relapse. Patient however very depressed, tearful. Wants to get back on medications; ambivalent about MAT. Reviewed indications from last admission (see below); patient would like to get back on some medications but is unsure efficacy. Wants help with opiate withdrawal however does not want to get on methadone. Some alcohol withdrawal Medications: -Patient does not want Seroquel since she says it causes restless legs; instead wants to get on doxepin for sleep; wants to use Thorazine as a p.r.n. since it is better tolerated. Does not want any antihypertensive and wants nifedipine discontinued; she says she was only hypertensive because she was in withdrawal. Hospital course: 01/21 Patient reports she is very depressed, agitated and sometimes. Having auditory hallucinations that say mean things; says she is having panic attacks and not sleeping at all. Also so as opioid withdrawal. Discussed methadone and patient will get another 5 mg and then continue taper; agrees to get back on Seroquel 350 mg q.h.s. since not sleeping. -discussed 3 day notice and patient said she may retract -scoring on CIWA but likely more due to anxiety as patient only drank for 2 days 01/22 Patient reports she slept better last night with Seroquel and is grateful. She continues to have AH however and remains quite agitated. Discussed taking p.r.n. Thorazine and she says she has a hard time asking for it but agrees it is helpful. -patient open to substance abuse program; also wants to get on Vivitrol -DC CIWA and cows; will continue with methadone taper 01/23: Continue current plans and regimen Plan: CV Q 15 minute checks Methadone 10 mg daily; taper and discontinue; interested in Vivitrol Continue Seroquel 350 mg q.h.s.; patient does need a mood stabilizer and has not been able to sleep; this has helped in the past Continue pramipexole 0.125 mg q.h.s for restless leg due to Seroquel; patient understands and feels that help of Seroquel is worth side effects Continue doxepin 20 mg q.h.s. Continue Thorazine 50 mg p.r.n. for anxiety/agitation Continue prazosin 1 mg q.h.s.; patient says she wakes up crying from nightmares Continue Clonazepam 0.5 mg t.i.d.; this was restarted in the ED; patient has been on it for months, remaining sober and without abusing it; will continue DC nifedipine; patient says no history of hypertension other than during withdrawal; does not want ?Betamethasone Dipropion Augmented (Betamethasone Dip Aug 0.05% Cr 15 Gm Tube) 1 appl TOPICAL BID IJEOMA; Protocol ?Fluticasone Propionate (Fluticasone Propionate 100 Mcg Blst.W.Dev) 2 puff INHALE RBID IJEOMA medications from last admission: BuSpar 15 mg t.i.d., Klonopin 0.5 mg t.i.d., doxepin 20 mg q.h.s., pramipexole 0.125 mg q.h.s., Prazosin 4 mg q.h.s., Zoloft 150 mg daily, Seroquel 350 mg q.h.s., Seroquel 100 mg b.i.d. 0 900/1400 and with 50 mg t.i.d. p.r.n. Reason for continued inpatient stay Substantial Risk for: med/psych decompensation Time Spent With Patient Time: Total time managing care of this patient today ____ minutes.
[2025-01-23] MEDS: Magnesium Hydrox/Alum Hydrox 30 ML ORAL.SUSP PO (14:08)
[2025-01-23 19:55] VITALS: BP 156/96; PULSE 86; RESP 18; TEMP 36.7; O2SAT 96
[2025-01-23] MEDS: Doxepin HCl 10 MG CAPSULE 20 MG PO (20:27)
[2025-01-23] MEDS: Pramipexole Di-HCL 0.125 MG TABLET PO (20:28)
[2025-01-23] MEDS: Prazosin HCL 1 MG CAPSULE 2 MG PO (20:29)
[2025-01-23] MEDS: QUEtiapine Fumarate 50 MG TABLET PO (20:29)
[2025-01-23] MEDS: QUEtiapine Fumarate 300 MG TABLET PO (20:29)
[2025-01-24] MEDS: methADONE HCl 20 MG/2 ML ORAL.CONC 10 MG PO (07:24)
[2025-01-24 08:00] VITALS: BP 165/95; PULSE 81; TEMP 36.5; O2SAT 99
[2025-01-24] MEDS: Multivitamin TABLET 1 TAB PO (08:38)
[2025-01-24] MEDS: Nitrofurantoin Monohyd/M-Cryst 100 MG CAPSULE PO ×2 (08:38→17:07)
[2025-01-24] MEDS: Folic Acid 1 MG TABLET PO (08:38)
[2025-01-24] MEDS: clonazePAM 0.5 MG TABLET PO ×3 (08:38→21:22)
[2025-01-24] MEDS: Thiamine HCL 100 MG TABLET PO (08:38)
[2025-01-24] MEDS: chlorproMAZINE HCl 100 MG TABLET PO ×2 (08:41→18:28)
[2025-01-24] MEDS: Cyclobenzaprine HCl 5 MG TABLET PO ×3 (08:41→21:19)
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
[2025-01-24] MEDS: hydrOXYzine HCL 50 MG TABLET PO (13:14)
--- NOTE | 2025-01-24 15:28 | PC.NURSE ---
15:30pm Pt reporting feeling sad all day . I just wanna cry but I don't know why pt reported. Pt given anxiolytic meds and discussed tools to use for coping. Pt given coloring papers and crayons. Pt stating wanting to isolate but encouraged to join small group or group activities. Pt verbalized desire to learn meditation. Looking for booklets for meditation and relaxation.
[2025-01-24 17:05] VITALS: BP 151/92; PULSE 87; RESP 22; O2SAT 98
[2025-01-24] MEDS: Nicotine Polacrilex 2 MG GUM 4 MG BUCCAL (17:07)
[2025-01-24 20:00] VITALS: BP 143/80; PULSE 96; TEMP 36.9; O2SAT 99
[2025-01-24] MEDS: Doxepin HCl 10 MG CAPSULE 20 MG PO (21:17)
[2025-01-24] MEDS: QUEtiapine Fumarate 50 MG TABLET PO (21:19)
[2025-01-24] MEDS: Pramipexole Di-HCL 0.125 MG TABLET PO (21:21)
[2025-01-24] MEDS: QUEtiapine Fumarate 300 MG TABLET PO (21:21)
[2025-01-25] MEDS: hydrOXYzine HCL 50 MG TABLET PO ×2 (01:48→15:55)
[2025-01-25] MEDS: traZODone HCL 50 MG TABLET PO ×2 (01:48→21:09)
[2025-01-25] MEDS: chlorproMAZINE HCl 100 MG TABLET PO ×3 (05:48→18:14)
[2025-01-25] MEDS: Cyclobenzaprine HCl 5 MG TABLET PO ×3 (05:48→21:09)
[2025-01-25] MEDS: methADONE HCl 20 MG/2 ML ORAL.CONC 10 MG PO (07:56)
[2025-01-25 08:00] VITALS: BP 160/89; PULSE 82; RESP 16; TEMP 36.5; O2SAT 100
[2025-01-25] MEDS: Thiamine HCL 100 MG TABLET PO (09:03)
[2025-01-25] MEDS: Nitrofurantoin Monohyd/M-Cryst 100 MG CAPSULE PO ×2 (09:04→16:21)
[2025-01-25] MEDS: clonazePAM 0.5 MG TABLET PO ×3 (09:04→21:28)
[2025-01-25] MEDS: Multivitamin TABLET 1 TAB PO (09:05)
[2025-01-25] MEDS: Folic Acid 1 MG TABLET PO (09:06)
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
[2025-01-25] MEDS: Nicotine 21 MG PATCH.TD24 TRANSDERMA (10:47)
[2025-01-25] MEDS: Sertraline HCL 25 MG TABLET PO (10:47)
[2025-01-25 15:14] LABS: Bacterial Vaginosis PCR POSITIVE (Negative); Candida Group PCR NOT DETECTED (Not Detect); Candida glab krusei PCR NOT DETECTED (Not Detect); Trichomonas vaginalis PCR DETECTED (Not Detect)
[2025-01-25 16:28] LABS: CT PCR NOT DETECTED (Not Detect.); NG PCR NOT DETECTED (Not Detect.)
[2025-01-25] MEDS: metroNIDAZOLE 500 MG TABLET PO (17:49)
[2025-01-25 20:00] VITALS: BP 145/79; PULSE 104; RESP 16; TEMP 36.4; O2SAT 99
[2025-01-25] MEDS: Pramipexole Di-HCL 0.125 MG TABLET PO (21:09)
[2025-01-25] MEDS: Doxepin HCl 10 MG CAPSULE 20 MG PO (21:09)
[2025-01-25] MEDS: QUEtiapine Fumarate 300 MG TABLET PO (21:09)
[2025-01-25] MEDS: QUEtiapine Fumarate 50 MG TABLET PO (21:09)
[2025-01-25 21:10] VITALS: BP 145/79
[2025-01-25] MEDS: Prazosin HCL 1 MG CAPSULE 4 MG PO (21:10)
[2025-01-26] MEDS: clonazePAM 0.5 MG TABLET PO ×3 (07:45→22:08)
[2025-01-26] MEDS: Nitrofurantoin Monohyd/M-Cryst 100 MG CAPSULE PO ×2 (07:45→17:33)
[2025-01-26] MEDS: methADONE HCl 20 MG/2 ML ORAL.CONC 7.5 MG PO (07:46)
[2025-01-26 08:00] VITALS: BP 141/71; PULSE 86; RESP 18; TEMP 36.4; O2SAT 100
[2025-01-26] MEDS: Multivitamin TABLET 1 TAB PO (09:07)
[2025-01-26] MEDS: Folic Acid 1 MG TABLET PO (09:07)
[2025-01-26] MEDS: Thiamine HCL 100 MG TABLET PO (09:08)
[2025-01-26] MEDS: Sertraline HCL 50 MG TABLET PO (09:08)
[2025-01-26] MEDS: metroNIDAZOLE 500 MG TABLET PO ×2 (09:08→22:07)
[2025-01-26] MEDS: Cyclobenzaprine HCl 5 MG TABLET PO ×2 (09:17→22:08)
[2025-01-26] MEDS: chlorproMAZINE HCl 100 MG TABLET PO (09:17)
[2025-01-26] MEDS: Nicotine Polacrilex 2 MG GUM 4 MG BUCCAL (14:26)
[2025-01-26] MEDS: hydrOXYzine HCL 50 MG TABLET PO (15:16)
[2025-01-26 20:00] VITALS: BP 149/95; PULSE 98; RESP 16; TEMP 36.8; O2SAT 98
[2025-01-26] MEDS: Permethrin 1 % Lotion 59 ML BTL 1 APPL TOPICAL (20:19)
[2025-01-26] MEDS: QUEtiapine Fumarate 50 MG TABLET PO (22:07)
[2025-01-26] MEDS: Pramipexole Di-HCL 0.125 MG TABLET PO (22:07)
[2025-01-26] MEDS: QUEtiapine Fumarate 300 MG TABLET PO (22:07)
[2025-01-26 22:08] VITALS: BP 132/70
[2025-01-26] MEDS: Doxepin HCl 10 MG CAPSULE 20 MG PO (22:08)
[2025-01-26] MEDS: Prazosin HCL 1 MG CAPSULE 4 MG PO (22:08)
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
[2025-01-27] MEDS: hydrOXYzine HCL 50 MG TABLET PO ×2 (04:14→10:52)
--- NOTE | 2025-01-27 07:09 | PC.NURSE ---
This senior underwriter spoke with Rose this morning and she said she only slept about one hour . She said the prn she got around 2230 was not helpful and she basically laid awake all night. Reinforced to patient the need to get up and let staff know she is not sleeping. Patient said she would let someone know.
[2025-01-27] MEDS: methADONE HCl 20 MG/2 ML ORAL.CONC 7.5 MG PO (07:35)
[2025-01-27 07:53] VITALS: BP 127/79; PULSE 86; TEMP 36.5; O2SAT 99
[2025-01-27] MEDS: Multivitamin TABLET 1 TAB PO (08:36)
[2025-01-27] MEDS: Nitrofurantoin Monohyd/M-Cryst 100 MG CAPSULE PO ×2 (08:36→17:38)
[2025-01-27] MEDS: Sertraline HCL 25 MG TABLET 75 MG PO (08:37)
[2025-01-27] MEDS: Folic Acid 1 MG TABLET PO (08:37)
[2025-01-27] MEDS: Thiamine HCL 100 MG TABLET PO (08:37)
[2025-01-27] MEDS: clonazePAM 0.5 MG TABLET PO ×3 (08:37→20:13)
[2025-01-27] MEDS: metroNIDAZOLE 500 MG TABLET PO ×2 (08:37→20:12)
[2025-01-27] MEDS: Cyclobenzaprine HCl 5 MG TABLET PO ×3 (08:41→20:19)
[2025-01-27] MEDS: Nicotine 21 MG PATCH.TD24 TRANSDERMA (08:41)
[2025-01-27] MEDS: chlorproMAZINE HCl 100 MG TABLET PO ×3 (08:41→20:19)
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
[2025-01-27 20:00] VITALS: BP 125/74; PULSE 107; RESP 16; TEMP 36.4; O2SAT 98
[2025-01-27] MEDS: QUEtiapine Fumarate 300 MG TABLET PO (20:10)
[2025-01-27] MEDS: Doxepin HCl 10 MG CAPSULE 20 MG PO (20:11)
[2025-01-27] MEDS: QUEtiapine Fumarate 50 MG TABLET PO (20:11)
[2025-01-27] MEDS: Pramipexole Di-HCL 0.125 MG TABLET PO (20:12)
[2025-01-27] MEDS: Prazosin HCL 1 MG CAPSULE 4 MG PO (20:12)
[2025-01-28] MEDS: Cyclobenzaprine HCl 5 MG TABLET PO ×3 (05:35→20:15)
[2025-01-28] MEDS: chlorproMAZINE HCl 100 MG TABLET PO ×3 (05:35→20:16)
[2025-01-28 07:00] VITALS: BMI 33.8
[2025-01-28] MEDS: methADONE HCl 20 MG/2 ML ORAL.CONC 5 MG PO (07:58)
[2025-01-28 08:00] VITALS: BP 134/83; PULSE 97; RESP 18; TEMP 36.4; O2SAT 100
[2025-01-28] MEDS: Sertraline HCL 25 MG TABLET 75 MG PO (08:36)
[2025-01-28] MEDS: Thiamine HCL 100 MG TABLET PO (08:36)
[2025-01-28] MEDS: clonazePAM 0.5 MG TABLET PO ×3 (08:36→20:16)
[2025-01-28] MEDS: Nicotine Polacrilex 2 MG GUM 4 MG BUCCAL (08:36)
[2025-01-28] MEDS: metroNIDAZOLE 500 MG TABLET PO ×2 (08:37→20:14)
[2025-01-28] MEDS: Folic Acid 1 MG TABLET PO (08:37)
[2025-01-28] MEDS: Nicotine 21 MG PATCH.TD24 TRANSDERMA (08:37)
[2025-01-28] MEDS: Nitrofurantoin Monohyd/M-Cryst 100 MG CAPSULE PO ×2 (08:37→17:56)
[2025-01-28] MEDS: hydrOXYzine HCL 50 MG TABLET PO (08:37)
[2025-01-28] MEDS: Multivitamin TABLET 1 TAB PO (08:37)
[2025-01-28 13:49] LABS: Appearance Urine Clear; Color Urine Yellow; Glucose Urine UA Negative (Negative); Leukocyte Esterase Urine Trace (Negative); Nitrite Urine Negative (Negative); UMIC TRIGGER UACC YES; Urine Blood Negative (Negative); Urine Ketones Negative (Negative); Urine Protein Negative (Neg-Trace)
[2025-01-28 13:51] LABS: Bacteria Urine None Seen (None Seen); Hyaline Casts Urine 0-2 /LPF (0-2); RBC Urine 0-2 /HPF (0-2); WBC Urine 0-5 /HPF (0-5)
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
[2025-01-28 14:32] VITALS: BP 144/77
[2025-01-28] MEDS: cloNIDine HCL 0.1 MG TABLET PO (14:32)
[2025-01-28] MEDS: Lidocaine 4 % Patch ADH..PATCH 1 PATCH TRANSDERMA (14:33)
[2025-01-28 20:00] VITALS: BP 134/72; PULSE 86; RESP 16; TEMP 36.4; O2SAT 98
[2025-01-28] MEDS: Pramipexole Di-HCL 0.125 MG TABLET PO (20:14)
[2025-01-28] MEDS: Doxepin HCl 10 MG CAPSULE 20 MG PO (20:14)
[2025-01-28] MEDS: QUEtiapine Fumarate 50 MG TABLET PO (20:15)
[2025-01-28] MEDS: QUEtiapine Fumarate 300 MG TABLET PO (20:15)
[2025-01-28] MEDS: Prazosin HCL 1 MG CAPSULE 4 MG PO (20:16)
--- NOTE | 2025-01-29 | ECG_ITS ---
Test Reason : QTC CHECK Blood Pressure : */* mmHG Vent. Rate : 84 BPM Atrial Rate : 84 BPM P-R Int : 144 ms QRS Dur : 78 ms QT Int : 428 ms P-R-T Axes : 71 74 46 degrees QTcB Int : 505 ms Normal sinus rhythm Prolonged QT Abnormal ECG When compared with ECG of 19-Jan-2025 07:58, No significant changes seen Referred By: Eric Chand Electronically Signed By: MICHAEL MORLE
[2025-01-29 04:29] VITALS: BP 118/70
[2025-01-29] MEDS: cloNIDine HCL 0.1 MG TABLET PO ×3 (04:29→18:46)
[2025-01-29] MEDS: methADONE HCl 20 MG/2 ML ORAL.CONC 5 MG PO ×2 (07:42→15:23)
[2025-01-29 08:00] VITALS: BP 123/71; PULSE 85; RESP 14; TEMP 36.4; O2SAT 99
[2025-01-29] MEDS: Sertraline HCL 25 MG TABLET 75 MG PO (08:51)
[2025-01-29] MEDS: Cyclobenzaprine HCl 5 MG TABLET PO ×3 (08:52→19:55)
[2025-01-29] MEDS: Multivitamin TABLET 1 TAB PO (08:52)
[2025-01-29] MEDS: Thiamine HCL 100 MG TABLET PO (08:52)
[2025-01-29] MEDS: Folic Acid 1 MG TABLET PO (08:52)
[2025-01-29] MEDS: chlorproMAZINE HCl 100 MG TABLET PO ×3 (08:52→19:54)
[2025-01-29] MEDS: metroNIDAZOLE 500 MG TABLET PO ×2 (08:52→19:48)
[2025-01-29 08:53] VITALS: BP 123/71
[2025-01-29] MEDS: Acetaminophen 325 MG TABLET 650 MG PO ×2 (08:53→14:55)
[2025-01-29] MEDS: clonazePAM 0.5 MG TABLET PO ×3 (08:53→19:48)
[2025-01-29] MEDS: Nicotine 21 MG PATCH.TD24 TRANSDERMA (08:54)
[2025-01-29] MEDS: Lidocaine 4 % Patch ADH..PATCH 1 PATCH TRANSDERMA ×2 (08:57→15:25)
[2025-01-29] MEDS: Nicotine Polacrilex 2 MG GUM 4 MG BUCCAL (10:26)
[2025-01-29] MEDS: hydrOXYzine HCL 50 MG TABLET PO ×2 (14:55→19:58)
[2025-01-29] MEDS: Fluconazole 150 MG TABLET PO (17:11)
[2025-01-29 18:46] VITALS: BP 123/73
[2025-01-29 19:48] VITALS: BP 120/65
[2025-01-29] MEDS: Prazosin HCL 1 MG CAPSULE 4 MG PO (19:48)
[2025-01-29] MEDS: Doxepin HCl 10 MG CAPSULE 20 MG PO (19:48)
[2025-01-29] MEDS: QUEtiapine Fumarate 50 MG TABLET PO (19:48)
[2025-01-29] MEDS: QUEtiapine Fumarate 300 MG TABLET PO (19:48)
[2025-01-29] MEDS: Pramipexole Di-HCL 0.125 MG TABLET PO (19:50)
[2025-01-29] MEDS: traZODone HCL 50 MG TABLET PO (19:58)
[2025-01-29 20:00] VITALS: BP 120/65; PULSE 96; RESP 17; TEMP 36.4; O2SAT 99
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
[2025-01-30 03:08] VITALS: BP 118/69
[2025-01-30] MEDS: Cyclobenzaprine HCl 5 MG TABLET PO ×3 (03:08→14:35)
[2025-01-30] MEDS: cloNIDine HCL 0.1 MG TABLET PO ×2 (03:08→08:37)
[2025-01-30] MEDS: methADONE HCl 20 MG/2 ML ORAL.CONC 10 MG PO (07:43)
[2025-01-30 08:00] VITALS: BP 117/57; PULSE 83; RESP 16; TEMP 37.2; O2SAT 99
[2025-01-30 08:37] VITALS: BP 114/67
[2025-01-30] MEDS: Acetaminophen 325 MG TABLET 650 MG PO ×3 (08:38→20:50)
[2025-01-30] MEDS: Multivitamin TABLET 1 TAB PO (08:38)
[2025-01-30] MEDS: Lidocaine 4 % Patch ADH..PATCH 1 PATCH TRANSDERMA ×2 (08:38→08:39)
[2025-01-30] MEDS: clonazePAM 0.5 MG TABLET PO ×3 (08:38→20:45)
[2025-01-30] MEDS: metroNIDAZOLE 500 MG TABLET PO ×2 (08:38→20:45)
[2025-01-30] MEDS: Sertraline HCL 100 MG TABLET PO (08:38)
[2025-01-30] MEDS: hydrOXYzine HCL 50 MG TABLET PO ×2 (08:38→14:35)
[2025-01-30] MEDS: Thiamine HCL 100 MG TABLET PO (08:38)
[2025-01-30] MEDS: chlorproMAZINE HCl 100 MG TABLET PO ×2 (08:38→14:35)
[2025-01-30] MEDS: Nicotine Polacrilex 2 MG GUM 4 MG BUCCAL (08:43)
[2025-01-30] MEDS: Folic Acid 1 MG TABLET PO (08:57)
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
--- NOTE | 2025-01-30 12:35 | P.CONGS_ITS ---
History of Present Illness Consult details Consult date: 01/30/25 Narrative: 44-year-old female with no schizoaffective disorder, PTSD, opioid and alcohol abuse, admitted to the hospital in the psych unit last week for depression and suicidal ideations. She has had similar problems when she was admitted to the psych unit in June,. She improved that time and had been sober for several months. She had a recent relapse on heroin and alcohol, underwent detox a few weeks ago and then became very depressed and suicidal so she was admitted to this institution She has had a known hernia in the umbilical area for over 5 years. She says that this has been increasing in size with the years and has been becoming more uncomfortable and painful. She says that the hernia was smaller before and could be reduced easily but says she has been unable to reduce this for several months now. She denies GI issues. She says she is feeling better overall with regards to her mood disorder. Review of Systems 2 Constitutional: Constitutional: Denies chills and Denies fever(s) Cardiovascular: Cardiovascular: Denies chest pain Respiratory: Respiratory: Denies cough Gastrointestinal: Gastrointestinal: Denies nausea Genitourinary: Genitourinary: Denies difficulty voiding Psychiatric: Psychiatric: Reports anxiety and Reports depression [facility] Past Medical History Medical History (Updated 01/30/25 @ 12:40 by Rick Alcantar MD) Umbilical hernia, incarcerated Alcohol use disorder Opioid use disorder Schizoaffective disorder, bipolar type Polysubstance use disorder Asthma PTSD (post-traumatic stress disorder) Recurrent major depression Social History Social History Household Members: None Housing: Other Housing Other:: trailer-can't live there though Do you presently have visiting nurse or other home services: No Alcohol intake: current Alcohol intake frequency: a few times a week Patient Tobacco Use Status: Current everyday Tobacco user Tobacco use type: Cigarette Cigarette Packs Per Day: 2 Cigarettes Per Day: 40.0 e-Cigarette/Vaping Use: Never Used Second Hand Smoke Exposure: No Substance Use Type: Crack/Cocaine, Heroin, Marijuana and Opiates service: No Sexual orientation: Straight/Heterosexual Meds Allergies Allergy/AdvReac Type Severity Reaction Status Date / Time Penicillins Allergy Intermediate HIVES Verified 01/18/25 16:49 Active Medications: Current Medications Acetaminophen (Acetaminophen 325 Mg Tablet) 650 mg PO Q6H PRN PRN Reason: Headache/Pain, Scale 1-10 Last Admin: 01/30/25 08:38 Dose: 650 mg Al Hydroxide/Mg Hydroxide (Magnesium Hydrox/Alum Hydrox 30 Ml Oral.Susp) 30 ml PO Q6H PRN PRN Reason: Heartburn/Nausea Last Admin: 01/23/25 14:08 Dose: 30 ml Albuterol Sulfate (Albuterol Sulfate 90 Mcg 8 Gm Inhaler) 2 puff INHALE Q6H PRN PRN Reason: wheezing Chlorpromazine HCl (Chlorpromazine Hcl 100 Mg Tablet) 100 mg PO TID PRN PRN Reason: severe anxiety Last Admin: 01/30/25 08:38 Dose: 100 mg Clonazepam (Clonazepam 0.5 Mg Tablet) 0.5 mg PO TID [facility] Last Admin: 01/30/25 08:38 Dose: 0.5 mg Clonidine HCl (Clonidine Hcl 0.1 Mg Tablet) 0.1 mg PO Q4H PRN; Protocol PRN Reason: moderate anxiety Last Admin: 01/30/25 08:37 Dose: 0.1 mg Cyclobenzaprine HCl (Cyclobenzaprine Hcl 5 Mg Tablet) 5 mg PO TID PRN PRN Reason: Muscle Pain Last Admin: 01/30/25 08:37 Dose: 5 mg Doxepin HCl (Doxepin Hcl 10 Mg Capsule) 20 mg PO BEDTIME [facility] Last Admin: 01/29/25 19:48 Dose: 20 mg Folic Acid (Folic Acid 1 Mg Tablet) 1 mg PO DAILY [facility] Last Admin: 01/29/25 08:52 Dose: 1 mg Hydroxyzine HCl (Hydroxyzine Hcl 50 Mg Tablet) 50 mg PO BID PRN PRN Reason: Anxiety Last Admin: 01/30/25 08:38 Dose: 50 mg Lidocaine (Lidocaine 4 % Patch Adh..Patch) 1 patch TRANSDERMA DAILY PRN; Protocol PRN Reason: lower back pain Last Admin: 01/30/25 08:38 Dose: 1 patch Lidocaine (Lidocaine 4 % Patch Adh..Patch) 1 patch TRANSDERMA DAILY PRN; Protocol PRN Reason: belly Last Admin: 01/30/25 08:39 Dose: 1 patch Magnesium Hydroxide (Milk Of Magnesia 30 Ml Oral.Susp) 30 ml PO DAILY PRN PRN Reason: Constipation Methadone HCl (Methadone Hcl 20 Mg/2 Ml Oral.Conc) 5 mg PO ONCE ONE Stop: 01/30/25 15:01 Methadone HCl (Methadone Hcl 20 Mg/2 Ml Oral.Conc) 15 mg PO DAILY@0800 [facility] Metronidazole (Metronidazole 500 Mg Tablet) 500 mg PO BID [facility] Stop: 02/01/25 09:01 Last Admin: 01/30/25 08:38 Dose: 500 mg Multivitamins/Vitamin C (Multivitamin Tablet) 1 tab PO DAILY [facility] Last Admin: 01/30/25 08:38 Dose: 1 tab Nicotine (Nicotine 21 Mg Patch.Td24) 21 mg TRANSDERMA DAILY PRN PRN Reason: smoking cessation Last Admin: 01/29/25 08:54 Dose: 21 mg Nicotine Polacrilex (Nicotine Polacrilex 2 Mg Gum) 4 mg BUCCAL Q2H PRN PRN Reason: Nicotine Cravings Last Admin: 01/30/25 08:43 Dose: 4 mg Pramipexole Dihydrochloride (Pramipexole Di-Hcl 0.25 Mg Tablet) 0.25 mg PO BEDTIME [facility] Prazosin HCl (Prazosin Hcl 1 Mg Capsule) 4 mg PO BEDTIME [facility]; Protocol Last Admin: 01/29/25 19:48 Dose: 4 mg Quetiapine Fumarate (Quetiapine Fumarate 300 Mg Tablet) 300 mg PO BEDTIME [facility] Last Admin: 01/29/25 19:48 Dose: 300 mg Quetiapine Fumarate (Quetiapine Fumarate 50 Mg Tablet) 50 mg PO BEDTIME [facility] Last Admin: 01/29/25 19:48 Dose: 50 mg Quetiapine Fumarate (Quetiapine Fumarate 50 Mg Tablet) 50 mg PO BEDTIME PRN PRN Reason: continued insomnia Sertraline HCl (Sertraline Hcl 50 Mg Tablet) 150 mg PO DAILY [facility] Thiamine HCl (Thiamine Hcl 100 Mg Tablet) 100 mg PO DAILY [facility] Last Admin: 01/30/25 08:38 Dose: 100 mg Home Medications ?Medication ?Instructions ?Recorded ?Confirmed ?Last Taken ?Type methadone 10 mg/mL oral syringe 100 mg PO DAILY 05/21/24 01/19/25 06/25/24 History (FOR ORAL USE ONLY) clonidine HCl 0.1 mg tablet 0.1 mg PO BID 01/18/25 01/18/25 Unknown History cyclobenzaprine 5 mg tablet 5 mg PO TID PRN Muscle Pain 01/18/25 01/18/25 Unknown History hydroxyzine pamoate 50 mg capsule 50 mg PO BID PRN Anxiety 01/18/25 01/18/25 Unknown History nifedipine 60 mg tablet,extended 60 mg PO DAILY 01/18/25 01/18/25 Unknown History release 24 hr Physical Exam 2 Vital Signs: Vital Signs: Last Vital Signs Temp 99 F 01/30/25 08:00 Pulse 83 01/30/25 08:00 Resp 16 01/30/25 08:00 BP 114/67 01/30/25 08:37 Pulse Ox 99 01/30/25 08:00 O2 Del Method Room Air 01/29/25 20:00 BMI result Body Mass Index 33.8 Const: Other: Ambulating, answers questions well General: comfortable, no acute distress and well developed Resp: Effort & Inspection: normal respiratory effort Cardio: Rate: regular rate GI: Other: Vague infraumbilical hernia, about 4 cm, some tenderness, not reducible Results Labs 01/18/25 18:00 01/19/25 13:59 Labs: Urine 01/18/25 01/28/25 Range/Units 23:23 13:05 Urine Color Yellow Yellow Urine Appearance Clear Clear Urine pH 5.5 6.0 (5.0-9.0) Ur Specific [place] 1.020 1.010 (1.005-1.025) Urine Protein Negative Negative (Neg-Trace) mg/dL Urine Glucose (UA) Negative Negative (Negative) mg/dL Urine Test NEGATIVE (NEGATIVE) All other labs normal. Assessment and Plan (1) Umbilical hernia, incarcerated: Status: Acute She has what appears to be a chronically incarcerated umbilical hernia. She says that this has been increasingly tender over the years. She says she used to be able to reduce this easily She wants this repaired because of discomfort I had a long discussion with her about the technique of repair with possible mesh placement. I reviewed the risks including but not limited to bleeding, infections, injury to other organs including bowel, recurrence, postop pain, as well as the benefits and alternatives. I reviewed with her what to expect postoperatively. She understands that she will maybe a challenge with regards to postop pain management as she is on methadone with a history of opioid use disorder. She wants to have this surgery done while she was an inpatient in the psych unit. I will discuss this with her psychiatrist. In the meantime, I have order a CAT scan of the abdomen and pelvis without contrast to define the fascial defect. Procedures Date of Service Date of Service: 02/01/25
[2025-01-30] MEDS: methADONE HCl 20 MG/2 ML ORAL.CONC 5 MG PO (14:30)
--- NOTE | 2025-01-30 15:33 | PC.NURSE ---
Rose continues to complain of abdominal pain, she has a slightly reducable umbilical hernia which is long standing but worsening in discomfort. Dr Chand aware. Surgical consult placed and she was seen by Dr Alcantar. Orders placed. This nurse instructed her on how to splint her hernia for comfort. Return demo given.
[2025-01-30 19:55] VITALS: BP 110/60; PULSE 83; TEMP 36.6; O2SAT 100
[2025-01-30 20:45] VITALS: BP 110/60
[2025-01-30] MEDS: Prazosin HCL 1 MG CAPSULE 4 MG PO (20:45)
[2025-01-30] MEDS: Pramipexole Di-HCL 0.25 MG TABLET PO (20:45)
[2025-01-30] MEDS: QUEtiapine Fumarate 50 MG TABLET PO (20:45)
[2025-01-30] MEDS: Doxepin HCl 10 MG CAPSULE 20 MG PO (20:46)
[2025-01-30] MEDS: QUEtiapine Fumarate 300 MG TABLET PO (20:46)
[2025-01-31] MEDS: QUEtiapine Fumarate 50 MG TABLET PO ×2 (03:48→20:27)
[2025-01-31] MEDS: Cyclobenzaprine HCl 5 MG TABLET PO ×3 (03:48→20:35)
[2025-01-31] MEDS: methADONE HCl 20 MG/2 ML ORAL.CONC 15 MG PO (07:41)
[2025-01-31 08:25] VITALS: BP 119/74
[2025-01-31] MEDS: Nicotine 21 MG PATCH.TD24 TRANSDERMA (08:33)
[2025-01-31] MEDS: Lidocaine 4 % Patch ADH..PATCH 1 PATCH TRANSDERMA ×2 (08:33→08:41)
[2025-01-31] MEDS: Acetaminophen 325 MG TABLET 650 MG PO ×2 (08:34→14:15)
[2025-01-31] MEDS: Sertraline HCL 50 MG TABLET 150 MG PO (08:34)
[2025-01-31] MEDS: chlorproMAZINE HCl 100 MG TABLET PO ×3 (08:35→20:35)
[2025-01-31] MEDS: clonazePAM 0.5 MG TABLET PO ×3 (08:36→20:27)
[2025-01-31] MEDS: hydrOXYzine HCL 50 MG TABLET PO ×2 (08:36→14:16)
[2025-01-31] MEDS: Folic Acid 1 MG TABLET PO (08:36)
[2025-01-31] MEDS: Thiamine HCL 100 MG TABLET PO (08:36)
[2025-01-31] MEDS: cloNIDine HCL 0.1 MG TABLET PO ×2 (08:36→14:16)
[2025-01-31] MEDS: metroNIDAZOLE 500 MG TABLET PO ×2 (08:36→20:26)
[2025-01-31] MEDS: Nicotine Polacrilex 2 MG GUM 4 MG BUCCAL ×2 (08:45→14:16)
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
[2025-01-31] MEDS: methADONE HCl 20 MG/2 ML ORAL.CONC 5 MG PO (14:14)
[2025-01-31] MEDS: Fluconazole 150 MG TABLET PO (17:39)
[2025-01-31 19:44] VITALS: BP 124/61; PULSE 76; RESP 15; TEMP 36.4; O2SAT 100
[2025-01-31] MEDS: Prazosin HCL 1 MG CAPSULE 4 MG PO (20:26)
[2025-01-31] MEDS: Doxepin HCl 10 MG CAPSULE 20 MG PO (20:26)
[2025-01-31] MEDS: Pramipexole Di-HCL 0.25 MG TABLET PO (20:26)
[2025-01-31] MEDS: QUEtiapine Fumarate 300 MG TABLET PO (20:28)
[2025-02-01] MEDS: QUEtiapine Fumarate 50 MG TABLET PO ×2 (01:46→20:49)
[2025-02-01] MEDS: hydrOXYzine HCL 50 MG TABLET PO ×2 (01:46→10:57)
[2025-02-01 05:13] VITALS: BP 117/73
[2025-02-01] MEDS: cloNIDine HCL 0.1 MG TABLET PO ×3 (05:13→20:50)
[2025-02-01] MEDS: chlorproMAZINE HCl 100 MG TABLET PO ×2 (05:17→21:00)
[2025-02-01] MEDS: methADONE HCl 20 MG/2 ML ORAL.CONC PO (07:48)
[2025-02-01 07:54] VITALS: BP 117/76; PULSE 83; TEMP 36.3; O2SAT 100
[2025-02-01] MEDS: Sertraline HCL 50 MG TABLET 150 MG PO (08:42)
[2025-02-01] MEDS: clonazePAM 0.5 MG TABLET PO ×3 (08:42→20:48)
[2025-02-01] MEDS: Multivitamin TABLET 1 TAB PO (08:42)
[2025-02-01] MEDS: metroNIDAZOLE 500 MG TABLET PO (08:42)
[2025-02-01] MEDS: Cyclobenzaprine HCl 5 MG TABLET PO ×3 (08:43→21:00)
[2025-02-01] MEDS: Folic Acid 1 MG TABLET PO (08:43)
[2025-02-01] MEDS: Thiamine HCL 100 MG TABLET PO (08:43)
[2025-02-01] MEDS: Lidocaine 4 % Patch ADH..PATCH 1 PATCH TRANSDERMA ×2 (10:33→10:34)
[2025-02-01] MEDS: Nicotine 21 MG PATCH.TD24 TRANSDERMA (10:33)
[2025-02-01] MEDS: Nicotine Polacrilex 2 MG GUM 4 MG BUCCAL (10:33)
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
--- NOTE | 2025-02-01 15:59 | P.PNGS_ITS ---
Subjective Subjective Date of Service: 02/01/25 Interval history: No new changes with regards to her status Physical Exam 2 Vital Signs: Vital Signs: Last Vital Signs Temp 97.3 F 02/01/25 07:54 Pulse 83 02/01/25 07:54 Resp 15 01/31/25 19:44 BP 117/76 02/01/25 07:54 Pulse Ox 100 02/01/25 07:54 O2 Del Method Room Air 02/01/25 07:54 BMI result Body Mass Index 33.8 Const: General: comfortable and no acute distress Resp: Effort & Inspection: normal respiratory effort GI: Other: Some tenderness in the hernia, my Palpation (GI): Soft to palpation Objective Data Active Medications Acetaminophen (Acetaminophen 325 Mg Tablet) 650 mg PO Q6H PRN PRN Reason: Headache/Pain, Scale 1-10 Last Admin: 01/31/25 14:15 Dose: 650 mg Documented By: WILBERT Al Hydroxide/Mg Hydroxide (Magnesium Hydrox/Alum Hydrox 30 Ml Oral.Susp) 30 ml PO Q6H PRN PRN Reason: Heartburn/Nausea Last Admin: 01/23/25 14:08 Dose: 30 ml Documented By: NORAH Albuterol Sulfate (Albuterol Sulfate 90 Mcg 8 Gm Inhaler) 2 puff INHALE Q6H PRN PRN Reason: wheezing Chlorpromazine HCl (Chlorpromazine Hcl 100 Mg Tablet) 100 mg PO TID PRN PRN Reason: severe anxiety Last Admin: 02/01/25 05:17 Dose: 100 mg Documented By: GEOFFREY Clonazepam (Clonazepam 0.5 Mg Tablet) 0.5 mg PO TID IJEOMA Last Admin: 02/01/25 15:03 Dose: 0.5 mg Documented By: DARSHANA Clonidine HCl (Clonidine Hcl 0.1 Mg Tablet) 0.1 mg PO Q4H PRN; Protocol PRN Reason: moderate anxiety Last Admin: 02/01/25 05:13 Dose: 0.1 mg Documented By: GEOFFREY Clonidine HCl (Clonidine Hcl 0.1 Mg Tablet) 0.1 mg PO BEDTIME [facility]; Protocol Cyclobenzaprine HCl (Cyclobenzaprine Hcl 5 Mg Tablet) 5 mg PO TID PRN PRN Reason: Muscle Pain Last Admin: 02/01/25 15:04 Dose: 5 mg Documented By: DARSHANA Doxepin HCl (Doxepin Hcl 10 Mg Capsule) 20 mg PO BEDTIME IJEOMA Last Admin: 01/31/25 20:26 Dose: 20 mg Documented By: GEOFFREY Folic Acid (Folic Acid 1 Mg Tablet) 1 mg PO DAILY [facility] Last Admin: 02/01/25 08:43 Dose: 1 mg Documented By: DARSHANA Hydroxyzine HCl (Hydroxyzine Hcl 50 Mg Tablet) 50 mg PO BID PRN PRN Reason: Anxiety Last Admin: 02/01/25 10:57 Dose: 50 mg Documented By: DARSHANA Lidocaine (Lidocaine 4 % Patch Adh..Patch) 1 patch TRANSDERMA DAILY PRN; Protocol PRN Reason: lower back pain Last Admin: 02/01/25 10:33 Dose: 1 patch Documented By: DARSHANA Lidocaine (Lidocaine 4 % Patch Adh..Patch) 1 patch TRANSDERMA DAILY PRN; Protocol PRN Reason: belly Last Admin: 02/01/25 10:34 Dose: 1 patch Documented By: DARSHANA Magnesium Hydroxide (Milk Of Magnesia 30 Ml Oral.Susp) 30 ml PO DAILY PRN PRN Reason: Constipation Methadone HCl (Methadone Hcl 20 Mg/2 Ml Oral.Conc) 25 mg PO DAILY@0800 [facility] Multivitamins/Vitamin C (Multivitamin Tablet) 1 tab PO DAILY [facility] Last Admin: 02/01/25 08:42 Dose: 1 tab Documented By: DARSHANA Nicotine (Nicotine 21 Mg Patch.Td24) 21 mg TRANSDERMA DAILY PRN PRN Reason: smoking cessation Last Admin: 02/01/25 10:33 Dose: 21 mg Documented By: DARSHANA Nicotine Polacrilex (Nicotine Polacrilex 2 Mg Gum) 4 mg BUCCAL Q2H PRN PRN Reason: Nicotine Cravings Last Admin: 02/01/25 10:33 Dose: 4 mg Documented By: DARSHANA Pramipexole Dihydrochloride (Pramipexole Di-Hcl 0.25 Mg Tablet) 0.25 mg PO BEDTIME [facility] Last Admin: 01/31/25 20:26 Dose: 0.25 mg Documented By: GEOFFREY Prazosin HCl (Prazosin Hcl 1 Mg Capsule) 4 mg PO BEDTIME [facility]EOMA; Protocol Last Admin: 01/31/25 20:26 Dose: 4 mg Documented By: GEOFFREY Quetiapine Fumarate (Quetiapine Fumarate 300 Mg Tablet) 300 mg PO BEDTIME [facility] Last Admin: 01/31/25 20:28 Dose: 300 mg Documented By: GEOFFREY Quetiapine Fumarate (Quetiapine Fumarate 50 Mg Tablet) 50 mg PO BEDTIME [facility] Last Admin: 01/31/25 20:27 Dose: 50 mg Documented By: GEOFFREY Quetiapine Fumarate (Quetiapine Fumarate 50 Mg Tablet) 50 mg PO BEDTIME PRN PRN Reason: continued insomnia Last Admin: 02/01/25 01:46 Dose: 50 mg Documented By: ZULEYMA Sertraline HCl (Sertraline Hcl 50 Mg Tablet) 150 mg PO DAILY [facility] Last Admin: 02/01/25 08:42 Dose: 150 mg Documented By: DARSHANA Thiamine HCl (Thiamine Hcl 100 Mg Tablet) 100 mg PO DAILY [facility] Last Admin: 02/01/25 08:43 Dose: 100 mg Documented By: DARSHANA Labs 01/18/25 18:00 01/19/25 13:59 Procedures Date of Service Date of Service: 02/01/25 Progress Note: A&P Assessment and plan (1) Umbilical hernia, incarcerated: Status: Acute Assessment and Plan: She has a fat containing umbilical hernia incarcerated I had scheduled her for repair tomorrow as she initially stated to me that she wanted this done soon However, today, she says that she was worried about logistics postop as she is homeless She says she would like to postpone the procedure She says she will call the office once she is ready to scheduled for the repair of the umbilical hernia Dr. Chand was involved with the discussion Time Spent With Patient Time: Total time managing care of this patient today ____ minutes. Quality Stroke Does the patient have a stroke diagnosis?: No VTE Prior VTE?: No VTE Risk Level:: Medical - low VTE Device Contraindication: Treatment Not Indicated VTE Drug Contraindication: Treatment Not Indicated
[2025-02-01] MEDS: methADONE HCl 20 MG/2 ML ORAL.CONC 5 MG PO (16:07)
[2025-02-01 16:08] VITALS: BP 113/62
--- NOTE | 2025-02-01 17:44 | P.EN_ITS ---
Event Note Date of Service: 02/02/25 Event Note: Pt is a 44-year-old female with a PMH significant for asthma, opiate use disorder, depression, and anxiety who was [facility] with hospitalist consult for vaginal irritation and discharge despite recent antibiotic and antifungal therapy. Pt states she has been experiencing symptoms of dysuria, vaginal itching, and non-malodorous whitish discharge for the past month. Was diagnosed with a UTI 3-4 weeks ago and treated with antibiotics. Then tested positive for BV and Trichomonas vaginalis. Treated with metronidazole x7 days and Flucanozole x2. Received two days of relief after flucanozole, but symptoms soon returned. No fever, chills. Denies suprapubic of abd pain. Plan: Testing for T. pallidum, chlamydia, gonorrhoeae, HIV Retest BV panel [employer] for possible pelvic exam Time Spent With Patient Time: Total time managing care of this patient today ____ minutes.
[2025-02-01 20:00] VITALS: BP 106/60; PULSE 80; RESP 16; TEMP 36.4; O2SAT 98
[2025-02-01] MEDS: Pramipexole Di-HCL 0.25 MG TABLET PO (20:48)
[2025-02-01] MEDS: QUEtiapine Fumarate 300 MG TABLET PO (20:49)
[2025-02-01] MEDS: Doxepin HCl 10 MG CAPSULE 20 MG PO (20:49)
--- NOTE | 2025-02-01 22:19 | PC.NURSE ---
Pt refused HS Prazosine 4mg at bed time
[2025-02-02] MEDS: QUEtiapine Fumarate 50 MG TABLET PO ×2 (01:39→20:26)
[2025-02-02] MEDS: Cyclobenzaprine HCl 5 MG TABLET PO ×2 (05:26→14:14)
[2025-02-02] MEDS: chlorproMAZINE HCl 100 MG TABLET PO ×2 (05:27→23:35)
[2025-02-02] MEDS: methADONE HCl 20 MG/2 ML ORAL.CONC 25 MG PO (07:48)
[2025-02-02 08:00] VITALS: BP 127/76; PULSE 78; TEMP 36.3; O2SAT 100
[2025-02-02 08:32] LABS: Syphilis Screen Nonreactive (Nonreactive)
[2025-02-02 08:46] LABS: HIV AB/AG Nonreactive (Nonreactive); HIV Num 1 0.07 S/CO (0.00-0.99)
--- NOTE | 2025-02-02 08:46 | P.CONOB_ITS ---
WASTE [facility]ER - CN: HPI Data of Consult Consult date: 02/02/25 Requesting Physician: Eric Chand MD Primary Care Provider: None Physician Consult Narrative Narrative: I was consulted on Rose Elias who is a 44 year old female admitted on M 5 complaining of vulvovaginal irritation, whitish discharge and urinary frequency with dysuria. Self collected vaginal swabs on 01/25 was positive for BV and Trichomonas, the patient received metronidazole for 7 days and Diflucan Urine culture on 01/18 was positive for E coli sensitive to nitrofurantoin, the patient stated that she received a course of Macrobid that was started prior to her admission and completed afterwards HIV and syphilis screening were negative few days cc:: CC: Eric Chand MD [facility] Past Medical History Medical History (Updated 02/02/25 @ 08:57 by Jeremi Robles MD) Umbilical hernia, incarcerated Alcohol use disorder Opioid use disorder Schizoaffective disorder, bipolar type Polysubstance use disorder Asthma PTSD (post-traumatic stress disorder) Recurrent major depression Social History Social History Household Members: None Housing: Other Housing Other:: trailer-can't live there though Do you presently have visiting nurse or other home services: No Alcohol intake: current Alcohol intake frequency: a few times a week Patient Tobacco Use Status: Current everyday Tobacco user Tobacco use type: Cigarette Cigarette Packs Per Day: 2 Cigarettes Per Day: 40.0 e-Cigarette/Vaping Use: Never Used Second Hand Smoke Exposure: No Substance Use Type: Crack/Cocaine, Heroin, Marijuana and Opiates service: No Sexual orientation: Straight/Heterosexual Meds Allergies Allergy/AdvReac Type Severity Reaction Status Date / Time Penicillins Allergy Intermediate HIVES Verified 01/18/25 16:49 Active Medications: Current Medications Acetaminophen (Acetaminophen 325 Mg Tablet) 650 mg PO Q6H PRN PRN Reason: Headache/Pain, Scale 1-10 Last Admin: 01/31/25 14:15 Dose: 650 mg Al Hydroxide/Mg Hydroxide (Magnesium Hydrox/Alum Hydrox 30 Ml Oral.Susp) 30 ml PO Q6H PRN PRN Reason: Heartburn/Nausea Last Admin: 01/23/25 14:08 Dose: 30 ml Albuterol Sulfate (Albuterol Sulfate 90 Mcg 8 Gm Inhaler) 2 puff INHALE Q6H PRN PRN Reason: wheezing Chlorpromazine HCl (Chlorpromazine Hcl 100 Mg Tablet) 100 mg PO TID PRN PRN Reason: severe anxiety Last Admin: 02/02/25 05:27 Dose: 100 mg Clonazepam (Clonazepam 0.5 Mg Tablet) 0.5 mg PO TID IJEOMA Last Admin: 02/01/25 20:48 Dose: 0.5 mg Clonidine HCl (Clonidine Hcl 0.1 Mg Tablet) 0.1 mg PO Q4H PRN; Protocol PRN Reason: moderate anxiety Last Admin: 02/01/25 16:08 Dose: 0.1 mg Clonidine HCl (Clonidine Hcl 0.1 Mg Tablet) 0.1 mg PO BEDTIME IJEOMA; Protocol Last Admin: 02/01/25 20:50 Dose: 0.1 mg Cyclobenzaprine HCl (Cyclobenzaprine Hcl 5 Mg Tablet) 5 mg PO TID PRN PRN Reason: Muscle Pain Last Admin: 02/02/25 05:26 Dose: 5 mg Doxepin HCl (Doxepin Hcl 10 Mg Capsule) 20 mg PO BEDTIME IJEOMA Last Admin: 02/01/25 20:49 Dose: 20 mg Folic Acid (Folic Acid 1 Mg Tablet) 1 mg PO DAILY [facility] Last Admin: 02/01/25 08:43 Dose: 1 mg Hydroxyzine HCl (Hydroxyzine Hcl 50 Mg Tablet) 50 mg PO BID PRN PRN Reason: Anxiety Last Admin: 02/01/25 10:57 Dose: 50 mg Lidocaine (Lidocaine 4 % Patch Adh..Patch) 1 patch TRANSDERMA DAILY PRN; Protocol PRN Reason: lower back pain Last Admin: 02/01/25 10:33 Dose: 1 patch Lidocaine (Lidocaine 4 % Patch Adh..Patch) 1 patch TRANSDERMA DAILY PRN; Protocol PRN Reason: belly Last Admin: 02/01/25 10:34 Dose: 1 patch Magnesium Hydroxide (Milk Of Magnesia 30 Ml Oral.Susp) 30 ml PO DAILY PRN PRN Reason: Constipation Methadone HCl (Methadone Hcl 20 Mg/2 Ml Oral.Conc) 25 mg PO DAILY@0800 [facility] Last Admin: 02/02/25 07:48 Dose: 25 mg Multivitamins/Vitamin C (Multivitamin Tablet) 1 tab PO DAILY IJEOMA Last Admin: 02/01/25 08:42 Dose: 1 tab Nicotine (Nicotine 21 Mg Patch.Td24) 21 mg TRANSDERMA DAILY PRN PRN Reason: smoking cessation Last Admin: 02/01/25 10:33 Dose: 21 mg Nicotine Polacrilex (Nicotine Polacrilex 2 Mg Gum) 4 mg BUCCAL Q2H PRN PRN Reason: Nicotine Cravings Last Admin: 02/01/25 10:33 Dose: 4 mg Pramipexole Dihydrochloride (Pramipexole Di-Hcl 0.25 Mg Tablet) 0.25 mg PO BEDTIME IJEOMA Last Admin: 02/01/25 20:48 Dose: 0.25 mg Prazosin HCl (Prazosin Hcl 1 Mg Capsule) 4 mg PO BEDTIME IJEOMA; Protocol Last Admin: 02/01/25 20:54 Dose: Not Given Quetiapine Fumarate (Quetiapine Fumarate 300 Mg Tablet) 300 mg PO BEDTIME IJEOMA Last Admin: 02/01/25 20:49 Dose: 300 mg Quetiapine Fumarate (Quetiapine Fumarate 50 Mg Tablet) 50 mg PO BEDTIME IJEOMA Last Admin: 02/01/25 20:49 Dose: 50 mg Quetiapine Fumarate (Quetiapine Fumarate 50 Mg Tablet) 50 mg PO BEDTIME PRN PRN Reason: continued insomnia Last Admin: 02/02/25 01:39 Dose: 50 mg Sertraline HCl (Sertraline Hcl 50 Mg Tablet) 150 mg PO DAILY IJEOMA Last Admin: 02/01/25 08:42 Dose: 150 mg Thiamine HCl (Thiamine Hcl 100 Mg Tablet) 100 mg PO DAILY IJEOMA Last Admin: 02/01/25 08:43 Dose: 100 mg Home Medications ?Medication ?Instructions ?Recorded ?Confirmed ?Last Taken ?Type methadone 10 mg/mL oral syringe 100 mg PO DAILY 05/21/24 01/19/25 06/25/24 History (FOR ORAL USE ONLY) clonidine HCl 0.1 mg tablet 0.1 mg PO BID 01/18/25 01/18/25 Unknown History cyclobenzaprine 5 mg tablet 5 mg PO TID PRN Muscle Pain 01/18/25 01/18/25 Unknown History hydroxyzine pamoate 50 mg capsule 50 mg PO BID PRN Anxiety 01/18/25 01/18/25 Unknown History nifedipine 60 mg tablet,extended 60 mg PO DAILY 01/18/25 01/18/25 Unknown History release 24 hr WASTE [facility]ER Physical Exam Vitals Vital signs: Temp Pulse Resp BP Pulse Ox O2 Del Method 97.4 F 78 16 127/76 100 Room Air 02/02/25 08:00 02/02/25 08:00 02/01/25 20:00 02/02/25 08:00 02/02/25 08:00 02/02/25 08:00 BMI result Body Mass Index 33.8 Female Genitalia (Pelvic) Vulva: No lesions Vagina: Nontender, No erythema and Abnormal discharge (Whitish) Cervix: Grossly normal Uterus: Normal size Adnexa/Parametria: Adnexal Tenderness: None, Adnexal Mass: None, Parametrial Tenderness: None and Parametrial Mass: None WASTE BALER - Results Labs 01/18/25 18:00 01/19/25 13:59 Labs: Urine 01/18/25 01/28/25 Range/Units 23:23 13:05 Urine Color Yellow Yellow Urine Appearance Clear Clear Urine pH 5.5 6.0 (5.0-9.0) Ur Specific [place] 1.020 1.010 (1.005-1.025) Urine Protein Negative Negative (Neg-Trace) mg/dL Urine Glucose (UA) Negative Negative (Negative) mg/dL Urine Test NEGATIVE (NEGATIVE) Assessment and Plan (1) Vulvovaginitis: Status: Acute GC/CT with BV panel collected Clotrimazole 1% 5 g daily vaginal application for 7 days (2) Dysuria: Status: Acute Clean-catch urine with reflex urine culture ordered, if positive will treat accordingly (3) Trichomonas infection: Status: Acute Since the patient received metronidazole 500 mg p.o. b.i.d. for 7 days, test of cure collected. Hepatitis-B surface antigen, hepatitis-C antibody and syphilis screen and HIV were both done recently and was negative
[2025-02-02] MEDS: Sertraline HCL 50 MG TABLET 150 MG PO (09:10)
[2025-02-02] MEDS: Folic Acid 1 MG TABLET PO (09:10)
[2025-02-02] MEDS: Thiamine HCL 100 MG TABLET PO (09:10)
[2025-02-02] MEDS: Multivitamin TABLET 1 TAB PO (09:10)
[2025-02-02] MEDS: clonazePAM 0.5 MG TABLET PO ×3 (09:10→20:26)
[2025-02-02] MEDS: Nicotine 21 MG PATCH.TD24 TRANSDERMA (09:10)
[2025-02-02] MEDS: Lidocaine 4 % Patch ADH..PATCH 1 PATCH TRANSDERMA ×2 (09:13)
[2025-02-02 09:40] LABS: Bacterial Vaginosis PCR NEGATIVE (Negative); Candida Group PCR NOT DETECTED (Not Detect); Candida glab krusei PCR NOT DETECTED (Not Detect); Trichomonas vaginalis PCR DETECTED (Not Detect)
[2025-02-02 10:13] LABS: CT PCR NOT DETECTED (Not Detect.); NG PCR NOT DETECTED (Not Detect.)
[2025-02-02 10:14] LABS: Appearance Urine Clear; Color Urine Yellow; Glucose Urine UA Negative (Negative); Leukocyte Esterase Urine Negative (Negative); Nitrite Urine Negative (Negative); Urine Blood Negative (Negative); Urine Ketones Negative (Negative); Urine Protein Negative (Neg-Trace)
[2025-02-02 10:16] LABS: Bacteria Urine None Seen (None Seen); Hyaline Casts Urine 0-2 /LPF (0-2); RBC Urine 0-2 /HPF (0-2); WBC Urine 0-5 /HPF (0-5)
[2025-02-02 10:45] LABS: Syphilis Screen Nonreactive (Nonreactive)
[2025-02-02 10:50] LABS: HBsAGNum1 0.32 S/CO (0.00-0.99); Hepatitis B Surface Antigen Negative (Negative); ~Hepatitis C Antibody Reactive (Nonreactive)
[2025-02-02 12:56] LABS: Bacterial Vaginosis PCR POSITIVE (Negative); Candida Group PCR NOT DETECTED (Not Detect); Candida glab krusei PCR NOT DETECTED (Not Detect); Trichomonas vaginalis PCR DETECTED (Not Detect)
--- NOTE | 2025-02-02 13:22 | PM.EVENT ---
Event Note Date of Service: 02/02/25 Event Note: 1-BV and Trichomonas positive The patient received a 7 day course of metronidazole 500 mg p.o. b.i.d. Possible causes include: false positive because of an early retesting , persistent infection, drug-resistant trich but since the patient is symptomatic will repeat a 7 day course of metronidazole 500 mg p.o. b.i.d., orders place and schedule a three-week test of cure if persistent positive will treat accordingly 2-hep C antibody reactive, awaiting comfirmatory tests Time Spent With Patient Time: Total time managing care of this patient today ____ minutes.
[2025-02-02 13:27] LABS: CT PCR NOT DETECTED (Not Detect.); NG PCR NOT DETECTED (Not Detect.)
[2025-02-02] MEDS: metroNIDAZOLE 500 MG TABLET PO ×2 (14:14→20:25)
[2025-02-02] MEDS: methADONE HCl 20 MG/2 ML ORAL.CONC 5 MG PO (15:11)
[2025-02-02 19:41] VITALS: BP 121/77; PULSE 88; RESP 16; TEMP 36.4; O2SAT 97
[2025-02-02] MEDS: cloNIDine HCL 0.1 MG TABLET PO (20:25)
[2025-02-02] MEDS: Doxepin HCl 10 MG CAPSULE 20 MG PO (20:26)
[2025-02-02] MEDS: QUEtiapine Fumarate 300 MG TABLET PO (20:26)
[2025-02-02] MEDS: Clotrimazole 1 % Vaginal Cream 45 GM TUBE 1 APPL VAGINAL (20:26)
[2025-02-02] MEDS: Pramipexole Di-HCL 0.25 MG TABLET PO (20:26)
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
[2025-02-03] MEDS: QUEtiapine Fumarate 50 MG TABLET PO ×2 (03:57→19:36)
[2025-02-03] MEDS: methADONE HCl 20 MG/2 ML ORAL.CONC 30 MG PO (07:45)
[2025-02-03 07:55] VITALS: BP 120/66; PULSE 88; RESP 16; TEMP 36.8; O2SAT 98
[2025-02-03] MEDS: Sertraline HCL 50 MG TABLET 150 MG PO (09:06)
[2025-02-03] MEDS: Cyclobenzaprine HCl 5 MG TABLET PO ×2 (09:06→18:19)
[2025-02-03] MEDS: metroNIDAZOLE 500 MG TABLET PO ×2 (09:07→19:36)
[2025-02-03] MEDS: Folic Acid 1 MG TABLET PO (09:07)
[2025-02-03] MEDS: Thiamine HCL 100 MG TABLET PO (09:07)
[2025-02-03] MEDS: hydrOXYzine HCL 50 MG TABLET PO ×2 (09:07→18:19)
[2025-02-03] MEDS: Nicotine Polacrilex 2 MG GUM 4 MG BUCCAL (09:07)
[2025-02-03] MEDS: clonazePAM 0.5 MG TABLET PO ×3 (09:07→19:36)
[2025-02-03] MEDS: Multivitamin TABLET 1 TAB PO (09:07)
[2025-02-03] MEDS: Nicotine 21 MG PATCH.TD24 TRANSDERMA (09:08)
[2025-02-03] MEDS: Lidocaine 4 % Patch ADH..PATCH 1 PATCH TRANSDERMA ×2 (09:12→09:13)
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
[2025-02-03] MEDS: methADONE HCl 20 MG/2 ML ORAL.CONC 5 MG PO (15:42)
[2025-02-03] MEDS: QUEtiapine Fumarate 300 MG TABLET PO (19:36)
[2025-02-03] MEDS: Doxepin HCl 10 MG CAPSULE 20 MG PO (19:36)
[2025-02-03] MEDS: Pramipexole Di-HCL 0.25 MG TABLET PO (19:36)
[2025-02-03] MEDS: cloNIDine HCL 0.1 MG TABLET PO (19:36)
[2025-02-03] MEDS: Clotrimazole 1 % Vaginal Cream 45 GM TUBE 1 APPL VAGINAL (19:38)
[2025-02-03 19:46] VITALS: BP 118/66; PULSE 85; RESP 16; TEMP 36.6; O2SAT 99
[2025-02-04] MEDS: Cyclobenzaprine HCl 5 MG TABLET PO ×2 (04:24→20:43)
[2025-02-04] MEDS: chlorproMAZINE HCl 100 MG TABLET PO (04:25)
[2025-02-04 07:00] VITALS: BMI 35.9
[2025-02-04] MEDS: methADONE HCl 20 MG/2 ML ORAL.CONC 35 MG PO (07:38)
[2025-02-04 08:14] VITALS: BP 124/70; PULSE 81; RESP 16; TEMP 36.9; O2SAT 99
[2025-02-04] MEDS: clonazePAM 0.5 MG TABLET PO ×3 (08:34→20:35)
[2025-02-04] MEDS: metroNIDAZOLE 500 MG TABLET PO ×2 (08:35→20:34)
[2025-02-04] MEDS: Sertraline HCL 50 MG TABLET 150 MG PO (08:35)
[2025-02-04] MEDS: Thiamine HCL 100 MG TABLET PO (08:35)
[2025-02-04] MEDS: Folic Acid 1 MG TABLET PO (08:35)
[2025-02-04] MEDS: Lidocaine 4 % Patch ADH..PATCH 1 PATCH TRANSDERMA ×2 (08:58)
[2025-02-04] MEDS: Nicotine 21 MG PATCH.TD24 TRANSDERMA (08:59)
[2025-02-04] MEDS: Nicotine Polacrilex 2 MG GUM 4 MG BUCCAL (08:59)
[2025-02-04] MEDS: Multivitamin TABLET 1 TAB PO (08:59)
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
[2025-02-04] MEDS: methADONE HCl 20 MG/2 ML ORAL.CONC 5 MG PO (14:33)
[2025-02-04 20:22] VITALS: BP 131/94; PULSE 72; TEMP 36.8; O2SAT 98
[2025-02-04] MEDS: traZODone HCL 50 MG TABLET PO (20:34)
[2025-02-04] MEDS: QUEtiapine Fumarate 50 MG TABLET PO (20:34)
[2025-02-04] MEDS: Pramipexole Di-HCL 0.25 MG TABLET PO (20:35)
[2025-02-04] MEDS: QUEtiapine Fumarate 300 MG TABLET PO (20:35)
[2025-02-04] MEDS: cloNIDine HCL 0.1 MG TABLET PO (20:35)
[2025-02-04] MEDS: Doxepin HCl 10 MG CAPSULE 20 MG PO (20:35)
[2025-02-04] MEDS: Clotrimazole 1 % Vaginal Cream 45 GM TUBE 1 APPL VAGINAL (20:36)
[2025-02-04] MEDS: Acetaminophen 325 MG TABLET 650 MG PO (20:43)
[2025-02-04 21:39] VITALS: BP 112/69
[2025-02-04] MEDS: Prazosin HCL 1 MG CAPSULE 6 MG PO (21:39)
[2025-02-05] MEDS: chlorproMAZINE HCl 100 MG TABLET PO ×2 (04:40→15:39)
[2025-02-05] MEDS: Cyclobenzaprine HCl 5 MG TABLET PO ×3 (04:41→20:21)
[2025-02-05] MEDS: Acetaminophen 325 MG TABLET 650 MG PO ×2 (06:26→15:39)
[2025-02-05] MEDS: hydrOXYzine HCL 50 MG TABLET PO ×2 (06:26→15:40)
[2025-02-05] MEDS: methADONE HCl 20 MG/2 ML ORAL.CONC 40 MG PO (07:49)
[2025-02-05 08:00] VITALS: BP 129/61; PULSE 87; RESP 16; TEMP 36.4; O2SAT 98
[2025-02-05] MEDS: Nicotine 21 MG PATCH.TD24 TRANSDERMA (08:48)
[2025-02-05] MEDS: Lidocaine 4 % Patch ADH..PATCH 1 PATCH TRANSDERMA ×2 (08:48)
[2025-02-05] MEDS: Multivitamin TABLET 1 TAB PO (08:49)
[2025-02-05] MEDS: clonazePAM 0.5 MG TABLET PO ×3 (08:49→20:09)
[2025-02-05] MEDS: Sertraline HCL 50 MG TABLET 150 MG PO (08:49)
[2025-02-05] MEDS: Thiamine HCL 100 MG TABLET PO (08:50)
[2025-02-05] MEDS: Folic Acid 1 MG TABLET PO (08:50)
[2025-02-05] MEDS: cloNIDine HCL 0.1 MG TABLET PO ×2 (08:50→20:11)
[2025-02-05] MEDS: metroNIDAZOLE 500 MG TABLET PO ×2 (08:50→20:11)
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
[2025-02-05 19:42] VITALS: BP 108/60; PULSE 76; TEMP 36.4; O2SAT 96
[2025-02-05] MEDS: Prazosin HCL 1 MG CAPSULE 6 MG PO (20:09)
[2025-02-05] MEDS: QUEtiapine Fumarate 300 MG TABLET PO (20:10)
[2025-02-05] MEDS: Doxepin HCl 10 MG CAPSULE 20 MG PO (20:10)
[2025-02-05] MEDS: QUEtiapine Fumarate 50 MG TABLET PO (20:10)
[2025-02-05] MEDS: Pramipexole Di-HCL 0.25 MG TABLET PO (20:10)
[2025-02-05] MEDS: traZODone HCL 50 MG TABLET PO (20:11)
[2025-02-05] MEDS: Clotrimazole 1 % Vaginal Cream 45 GM TUBE 1 APPL VAGINAL (20:21)
[2025-02-06 01:11] VITALS: BP 110/62
[2025-02-06] MEDS: cloNIDine HCL 0.1 MG TABLET PO ×3 (01:11→21:02)
[2025-02-06] MEDS: QUEtiapine Fumarate 50 MG TABLET PO ×2 (01:11→20:20)
[2025-02-06] MEDS: chlorproMAZINE HCl 100 MG TABLET PO ×2 (01:11→16:32)
[2025-02-06 05:52] VITALS: BP 116/60
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
[2025-02-06] MEDS: methADONE HCl 20 MG/2 ML ORAL.CONC 40 MG PO (07:54)
[2025-02-06 08:00] VITALS: BP 127/67; PULSE 83; TEMP 36.4; O2SAT 98
[2025-02-06] MEDS: clonazePAM 0.5 MG TABLET PO ×3 (08:46→20:20)
[2025-02-06] MEDS: Thiamine HCL 100 MG TABLET PO (08:46)
[2025-02-06] MEDS: Sertraline HCL 50 MG TABLET 150 MG PO (08:46)
[2025-02-06] MEDS: Folic Acid 1 MG TABLET PO (08:46)
[2025-02-06] MEDS: Cyclobenzaprine HCl 5 MG TABLET PO ×2 (08:47→21:03)
[2025-02-06] MEDS: Nicotine 21 MG PATCH.TD24 TRANSDERMA (08:56)
[2025-02-06] MEDS: metroNIDAZOLE 500 MG TABLET PO ×2 (09:00→20:20)
[2025-02-06] MEDS: Multivitamin TABLET 1 TAB PO (09:00)
[2025-02-06] MEDS: Lidocaine 4 % Patch ADH..PATCH 1 PATCH TRANSDERMA ×2 (09:02)
[2025-02-06 19:39] VITALS: BP 109/55; PULSE 79; TEMP 36.2; O2SAT 98
[2025-02-06] MEDS: Prazosin HCL 1 MG CAPSULE 6 MG PO (20:18)
[2025-02-06] MEDS: Doxepin HCl 10 MG CAPSULE 20 MG PO (20:19)
[2025-02-06] MEDS: QUEtiapine Fumarate 300 MG TABLET PO (20:20)
[2025-02-06] MEDS: Pramipexole Di-HCL 0.25 MG TABLET PO (20:20)
[2025-02-06] MEDS: Clotrimazole 1 % Vaginal Cream 45 GM TUBE 1 APPL VAGINAL (20:20)
[2025-02-06] MEDS: traZODone HCL 50 MG TABLET PO (20:20)
[2025-02-07] MEDS: Cyclobenzaprine HCl 5 MG TABLET PO ×3 (02:28→15:13)
[2025-02-07] MEDS: chlorproMAZINE HCl 100 MG TABLET PO ×2 (02:28→11:37)
[2025-02-07] MEDS: QUEtiapine Fumarate 50 MG TABLET PO ×2 (03:05→20:54)
[2025-02-07] MEDS: methADONE HCl 20 MG/2 ML ORAL.CONC 40 MG PO (07:39)
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
[2025-02-07] MEDS: metroNIDAZOLE 500 MG TABLET PO ×2 (08:14→20:54)
[2025-02-07] MEDS: clonazePAM 0.5 MG TABLET PO ×3 (08:14→20:55)
[2025-02-07] MEDS: Sertraline HCL 50 MG TABLET 150 MG PO (08:14)
[2025-02-07] MEDS: Multivitamin TABLET 1 TAB PO (08:15)
[2025-02-07] MEDS: Folic Acid 1 MG TABLET PO (08:15)
[2025-02-07] MEDS: Thiamine HCL 100 MG TABLET PO (08:15)
[2025-02-07] MEDS: Lidocaine 4 % Patch ADH..PATCH 1 PATCH TRANSDERMA ×2 (09:37)
[2025-02-07] MEDS: Nicotine 21 MG PATCH.TD24 TRANSDERMA (09:40)
[2025-02-07 10:13] VITALS: BP 127/62; PULSE 84; RESP 21; TEMP 36.4; O2SAT 97
[2025-02-07] MEDS: methADONE HCl 20 MG/2 ML ORAL.CONC 5 MG PO (11:32)
[2025-02-07 19:52] VITALS: BP 130/60; PULSE 76; TEMP 36.3; O2SAT 97
[2025-02-07 20:53] VITALS: BP 130/60
[2025-02-07] MEDS: cloNIDine HCL 0.1 MG TABLET PO (20:53)
[2025-02-07 20:54] VITALS: BP 130/60
[2025-02-07] MEDS: Prazosin HCL 1 MG CAPSULE 6 MG PO (20:54)
[2025-02-07] MEDS: traZODone HCL 50 MG TABLET PO (20:54)
[2025-02-07] MEDS: Doxepin HCl 10 MG CAPSULE 20 MG PO (20:55)
[2025-02-07] MEDS: Pramipexole Di-HCL 0.25 MG TABLET PO (20:55)
[2025-02-07] MEDS: QUEtiapine Fumarate 300 MG TABLET PO (20:55)
[2025-02-07] MEDS: Clotrimazole 1 % Vaginal Cream 45 GM TUBE 1 APPL VAGINAL (20:56)
[2025-02-08] MEDS: Cyclobenzaprine HCl 5 MG TABLET PO ×2 (04:37→14:59)
[2025-02-08] MEDS: chlorproMAZINE HCl 100 MG TABLET PO ×2 (04:37→10:45)
[2025-02-08] MEDS: methADONE HCl 20 MG/2 ML ORAL.CONC 40 MG PO (07:46)
[2025-02-08 08:00] VITALS: BP 118/74; PULSE 76; RESP 16; TEMP 36.6; O2SAT 100
[2025-02-08] MEDS: Sertraline HCL 50 MG TABLET 150 MG PO (08:31)
[2025-02-08] MEDS: metroNIDAZOLE 500 MG TABLET PO ×2 (08:31→20:43)
[2025-02-08] MEDS: Nicotine 21 MG PATCH.TD24 TRANSDERMA (08:31)
[2025-02-08] MEDS: Multivitamin TABLET 1 TAB PO (08:31)
[2025-02-08] MEDS: Acetaminophen 325 MG TABLET 650 MG PO ×2 (08:32→15:00)
[2025-02-08] MEDS: hydrOXYzine HCL 50 MG TABLET PO (08:32)
[2025-02-08] MEDS: Folic Acid 1 MG TABLET PO (08:32)
[2025-02-08] MEDS: Thiamine HCL 100 MG TABLET PO (08:33)
[2025-02-08] MEDS: Nicotine Polacrilex 2 MG GUM 4 MG BUCCAL ×2 (08:33→15:01)
[2025-02-08] MEDS: clonazePAM 0.5 MG TABLET PO ×3 (08:33→20:45)
[2025-02-08] MEDS: Lidocaine 4 % Patch ADH..PATCH 1 PATCH TRANSDERMA ×2 (08:34→08:35)
[2025-02-08] MEDS: cloNIDine HCL 0.1 MG TABLET PO ×2 (10:46→20:43)
[2025-02-08] MEDS: methADONE HCl 20 MG/2 ML ORAL.CONC 10 MG PO (14:59)
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
[2025-02-08 20:00] VITALS: BP 133/77; PULSE 72; TEMP 36.8; O2SAT 98
[2025-02-08 20:42] VITALS: BP 133/77
[2025-02-08] MEDS: Prazosin HCL 1 MG CAPSULE 6 MG PO (20:42)
[2025-02-08] MEDS: QUEtiapine Fumarate 50 MG TABLET PO (20:42)
[2025-02-08] MEDS: traZODone HCL 50 MG TABLET PO (20:42)
[2025-02-08 20:43] VITALS: BP 133/77
[2025-02-08] MEDS: QUEtiapine Fumarate 300 MG TABLET PO (20:44)
[2025-02-08] MEDS: Pramipexole Di-HCL 0.25 MG TABLET PO (20:44)
[2025-02-08] MEDS: Doxepin HCl 10 MG CAPSULE 20 MG PO (20:44)
[2025-02-08] MEDS: Clotrimazole 1 % Vaginal Cream 45 GM TUBE 1 APPL VAGINAL (20:47)
[2025-02-08] MEDS: Melatonin 3 MG TABLET PO (20:48)
--- NOTE | 2025-02-09 | ECG_ITS ---
Test Reason : QTC CHECK Blood Pressure : */* mmHG Vent. Rate : 82 BPM Atrial Rate : 82 BPM P-R Int : 154 ms QRS Dur : 78 ms QT Int : 412 ms P-R-T Axes : 67 68 64 degrees QTcB Int : 481 ms Normal sinus rhythm Prolonged QT Abnormal ECG When compared with ECG of 29-Jan-2025 15:38, No significant change was found Referred By: Eric Chand Electronically Signed By: MICHAEL MOREL
[2025-02-09] MEDS: methADONE HCl 20 MG/2 ML ORAL.CONC 50 MG PO (07:58)
[2025-02-09 08:00] VITALS: BP 110/64; PULSE 92; RESP 16; TEMP 36.4; O2SAT 97
[2025-02-09] MEDS: Cyclobenzaprine HCl 5 MG TABLET PO ×2 (09:15→14:38)
[2025-02-09] MEDS: Sertraline HCL 50 MG TABLET 150 MG PO (09:15)
[2025-02-09] MEDS: Multivitamin TABLET 1 TAB PO (09:15)
[2025-02-09] MEDS: Acetaminophen 325 MG TABLET 650 MG PO ×2 (09:15→14:40)
[2025-02-09] MEDS: metroNIDAZOLE 500 MG TABLET PO ×2 (09:15→20:30)
[2025-02-09] MEDS: Thiamine HCL 100 MG TABLET PO (09:15)
[2025-02-09 09:16] VITALS: BP 103/67
[2025-02-09] MEDS: hydrOXYzine HCL 50 MG TABLET PO ×2 (09:16→19:19)
[2025-02-09] MEDS: chlorproMAZINE HCl 100 MG TABLET PO ×2 (09:16→19:19)
[2025-02-09] MEDS: cloNIDine HCL 0.1 MG TABLET PO ×2 (09:16→20:31)
[2025-02-09] MEDS: clonazePAM 0.5 MG TABLET PO ×3 (09:16→20:31)
[2025-02-09] MEDS: Folic Acid 1 MG TABLET PO (09:16)
[2025-02-09] MEDS: Nicotine 21 MG PATCH.TD24 TRANSDERMA (09:19)
[2025-02-09] MEDS: Nicotine Polacrilex 2 MG GUM 4 MG BUCCAL (09:19)
[2025-02-09] MEDS: Lidocaine 4 % Patch ADH..PATCH 1 PATCH TRANSDERMA ×2 (09:21→09:22)
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
[2025-02-09 19:59] VITALS: BP 128/79; PULSE 110; TEMP 36.9; O2SAT 95
[2025-02-09] MEDS: Prazosin HCL 1 MG CAPSULE 6 MG PO (20:29)
[2025-02-09] MEDS: Pramipexole Di-HCL 0.25 MG TABLET PO (20:29)
[2025-02-09] MEDS: QUEtiapine Fumarate 50 MG TABLET PO (20:30)
[2025-02-09] MEDS: traZODone HCL 50 MG TABLET PO (20:30)
[2025-02-09] MEDS: Doxepin HCl 10 MG CAPSULE 20 MG PO (20:30)
[2025-02-09] MEDS: QUEtiapine Fumarate 300 MG TABLET PO (20:30)
[2025-02-10] MEDS: methADONE HCl 20 MG/2 ML ORAL.CONC 50 MG PO (07:44)
[2025-02-10 08:59] VITALS: BP 118/62; PULSE 85; TEMP 36.6; O2SAT 97
[2025-02-10] MEDS: clonazePAM 0.5 MG TABLET PO (09:29)
[2025-02-10] MEDS: Folic Acid 1 MG TABLET PO (09:29)
[2025-02-10] MEDS: Sertraline HCL 50 MG TABLET 150 MG PO (09:29)
[2025-02-10] MEDS: Thiamine HCL 100 MG TABLET PO (09:29)
[2025-02-10] MEDS: metroNIDAZOLE 500 MG TABLET PO (09:29)
[2025-02-10] MEDS: Naloxone HCl Nasal TAKE HOME 4 MG SPRAY 8 MG NOSTRILALT (09:31)
[2025-02-10] MEDS: Multivitamin TABLET 1 TAB PO (09:31)
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
== END 2025-02-10 10:40 | disposition other institution (70) | DRG 885 ==
LOC: HO.ED 01-19 12:56 → HO.PM5 01-19 13:11
PROVIDERS: Emergency Medicine; Obstetrics & Gynecology; Physician Assistant Medical; Student in an Organized Health Care Education/Training Program; Admitting Provider Psychiatry & Neurology Psychiatry; Emergency Provider Emergency Medicine Emergency Medical Services; Visit Provider Psychiatry & Neurology Psychiatry
DX: F25.0 Schizoaffective disorder, bipolar type (principal); F11.20 Opioid dependence, uncomplicated; N39.0 Urinary tract infection, site not specified; R45.851 Suicidal ideations; K42.0 Umbilical hernia with obstruction, without gangrene; Z59.02 Unsheltered homelessness; A59.01 Trichomonal vulvovaginitis; F43.10 Post-traumatic stress disorder, unspecified; F10.90 Alcohol use, unspecified, uncomplicated; F17.210 Nicotine dependence, cigarettes, uncomplicated; B96.20 Unspecified Escherichia coli [E. coli] as the cause of diseases classified elsewhere; Z71.6 Tobacco abuse counseling; Z79.899 Other long term (current) drug therapy
CPT/HCPCS: 36415; 74176; 80053; 80061; 80143; 80179; 80307; 81001; 81025; 81515; 83036; 83690; 83735; 84439; 84443; 85025; 86780; 86803; 87086; 87088; 87186; 87340; 87389; 87491; 87591; 93005; 97161; 99285

== ENCOUNTER → 2025-01-19 07:58 | Outpatient (BNV) | payer MEDICARE, MEDICAID, SELFPAY | PROVIDERS: Emergency Provider Emergency Medicine Emergency Medical Services; Visit Provider Internal Medicine Cardiovascular Disease | DX: R94.31 Abnormal electrocardiogram [ECG] [EKG] (principal); Z13.6 Encounter for screening for cardiovascular disorders | CPT/HCPCS: 93010 ==

== ENCOUNTER 2025-01-19 12:38 | Outpatient (BNV) | payer MEDICARE, MEDICAID, SELFPAY | END 2025-01-31 09:33 | PROVIDERS: Admitting Provider Psychiatry & Neurology Psychiatry; Emergency Provider Emergency Medicine Emergency Medical Services; Visit Provider Radiology Vascular & Interventional Radiology | DX: K42.0 Umbilical hernia with obstruction, without gangrene (principal) | CPT/HCPCS: 74176 ==

== ENCOUNTER 2025-01-19 12:38 | Outpatient (BNV) | payer MEDICARE, MEDICAID, SELFPAY | END 2025-01-29 15:38 | PROVIDERS: Admitting Provider Psychiatry & Neurology Psychiatry; Emergency Provider Emergency Medicine Emergency Medical Services; Visit Provider Internal Medicine | DX: R94.31 Abnormal electrocardiogram [ECG] [EKG] (principal) | CPT/HCPCS: 93010 ==

== ENCOUNTER 2025-01-19 12:38 | Outpatient (BNV) | payer MEDICARE, MEDICAID, SELFPAY | END 2025-02-09 14:16 | PROVIDERS: Admitting Provider Psychiatry & Neurology Psychiatry; Emergency Provider Emergency Medicine Emergency Medical Services; Visit Provider Internal Medicine | DX: I45.81 Long QT syndrome (principal) | CPT/HCPCS: 93010 ==

== ENCOUNTER → 2025-01-19 12:38 | Outpatient (BNV) | payer MEDICARE, MEDICAID, SELFPAY | PROVIDERS: Admitting Provider Psychiatry & Neurology Psychiatry; Emergency Provider Emergency Medicine Emergency Medical Services; Visit Provider Obstetrics & Gynecology | DX: N76.0 Acute vaginitis (principal); R30.0 Dysuria; A59.9 Trichomoniasis, unspecified | CPT/HCPCS: 99231; 99499 ==

== ENCOUNTER → 2025-01-19 12:38 | Outpatient (BNV) | payer MEDICARE, MEDICAID, SELFPAY | PROVIDERS: Admitting Provider Psychiatry & Neurology Psychiatry; Emergency Provider Emergency Medicine Emergency Medical Services; Visit Provider Surgery | DX: K42.0 Umbilical hernia with obstruction, without gangrene (principal) | CPT/HCPCS: 99222; 99232 ==

== ENCOUNTER → 2025-01-19 12:38 | Outpatient (BNV) | payer MEDICARE, MEDICAID, SELFPAY | PROVIDERS: Admitting Provider Psychiatry & Neurology Psychiatry; Emergency Provider Emergency Medicine Emergency Medical Services; Visit Provider Psychiatry & Neurology Psychiatry | DX: F25.0 Schizoaffective disorder, bipolar type (principal); F43.11 Post-traumatic stress disorder, acute; F11.90 Opioid use, unspecified, uncomplicated; F10.90 Alcohol use, unspecified, uncomplicated | CPT/HCPCS: 90792; 99231; 99232 ==

== ENCOUNTER 2025-04-11 11:54 | Inpatient (IN) | payer MEDICARE, MEDICAID, SELFPAY ==
[2025-04-11] VITALS (8 sets, daily range): BP systolic 126–180; BP diastolic 64–102; PULSE 70–113; RESP 18–24; TEMP 36.1–37.8; O2SAT 88–100; BMI 35.7
--- NOTE | ~2025-04-11 | XR_ITS ---
CLINICAL HISTORY: cough 2 view chest x-ray Comparison: CR/MA/SR - XR CHEST 2V - 06/21/24 12:48 EDT Findings: No consolidation or effusion. There is mild increase of bilateral interstitial lung markings which may represent reactive airway disease or viral infection. Heart size is normal. No acute fracture. IMPRESSION: No consolidation. This document has been electronically signed by: Aracelis Palacios MD on 04/11/2025 13:37:51
--- NOTE | 2025-04-11 12:03 | ED_ITS ---
HPI - General Adult General Chief complaint: Weakness Stated complaint: MOUTH PAIN Time Seen by Provider: 04/11/25 12:03 Source: patient and EMS Mode of arrival: EMS Limitations: no limitations History of Present Illness ED Provider: Nancy Morgan PA-C HPI narrative: Patient is a 44 year old female with past medical history of IVDU (last use ), opioid and alcohol use disorder (last drink 04/10/2025 - hx of withdrawal seizures), schizoaffective disorder, PTSD, and major depression presents to ER on 04/11 with chief complaint of mouth infection from foot fungus. Patient has history of onychomycosis of her toenails which she regularly cleans with alcohol and water. She was cleaning her feet 2 days ago and put her unwashed hands in her mouth, and has since developed pain at the base of her mouth that she is concerned is infected. She states her last IVDU was fentanyl yesterday 04/10. Her last etoh use was yesterday 04/10, she reports history of seizures with alcohol withdrawal. She was recently hospitalized at a psychiatric facility and discharged 02/2025. She endorses feeling feverish, chills, and shortness of breath since symptom onset. She denies chest pain, confusion, dizziness, abdominal pain, nausea, vomiting, or diarrhea. Relieving factors: none Exacerbating factors: none Associated symptoms: fever/chills Related Data Home Medications ?Medication ?Instructions ?Recorded ?Confirmed buprenorphine 4 mg-naloxone 1 mg 1 film sublingual TID 04/11/25 sublingual film chlorpromazine 100 mg tablet 100 mg PO BID PRN severe anxiety 04/11/25 clonidine HCl 0.1 mg tablet 0.1 mg PO BEDTIME 04/11/25 clonidine HCl 0.1 mg tablet 0.1 mg PO Q4H PRN moderate anxiety 04/11/25 propranolol 40 mg tablet 40 mg PO BID 04/11/25 Previous Rx's ?Medication ?Instructions ?Recorded abdominal binder #1 ea 02/03/25 abdominal binder #1 ea 02/09/25 acetaminophen 325 mg tablet 650 mg (2 x 325 mg) PO Q6H PRN 02/09/25 Headache/Pain, Scale 1-10 #0 tabs albuterol sulfate 90 mcg/actuation 2 puff inhalation Q 6H PRN wheezing 02/09/25 aerosol inhaler #1 inhaler clonazepam 0.5 mg tablet 0.5 mg PO TID 30 days #90 ta bs 02/09/25 cyclobenzaprine 5 mg tablet 5 mg PO TID PRN Muscle Andrez n 30 02/09/25 days #90 tabs doxepin 10 mg capsule 20 mg (2 x 10 mg) PO BEDTIME 30 02/09/25 days #60 caps hydroxyzine pamoate 50 mg capsule 50 mg PO BID PRN mil d Anxiety 30 02/09/25 days #60 caps lidocaine 4 % topical patch See Rx Instructions .Route 02/09/25 (Lidocaine Pain Relief) .COMPLEX PRN lower back pain/umbilical pain 30 days #60 ea melatonin 3 mg tablet 3 mg PO BEDTIME MRX1 PRN Ins omnia 02/09/25 30 days #60 tabs methadone 10 mg/mL oral 50 mg (5 mL) PO DAILY@0800 # 0 mL 02/09/25 concentrate (Methadose) nicotine (polacrilex) 4 mg buccal 4 mg buccal Q2H PRN Nicotine 02/09/25 lozenge Cravings 30 days #108 ea nicotine 21 mg/24 hr daily 21 mg transdermal DAILY PRN 02/09/25 transdermal patch nicotine cravings 28 days #2 8 ea pramipexole 0.25 mg tablet 0.25 mg PO BEDTIME 30 days #30 tabs 02/09/25 prazosin 2 mg capsule 6 mg (3 x 2 mg) PO BEDTIME 3 0 days 02/09/25 #90 caps quetiapine 300 mg tablet 300 mg PO BEDTIME 30 days #3 0 tabs 02/09/25 quetiapine 50 mg tablet 50 mg PO BEDTIME 30 days #30 tabs 02/09/25 sertraline 50 mg tablet 150 mg (3 x 50 mg) PO DAILY 30 02/09/25 days #90 tabs trazodone 50 mg tablet 50 mg PO BEDTIME PRN insomni a 30 02/09/25 days #30 tabs Allergies Allergy/AdvReac Type Severity Reaction Status Date / Time Penicillins Allergy Intermediate HIVES Verified 04/11/25 12:53 Review of Systems 2 Constitutional: Constitutional: Reports as per HPI, Reports no additional constitutional complaints, Reports chills, Reports fever(s) and Denies night sweats Eyes: Eyes: Reports no additional eye complaints, Denies blurry vision, Denies change in vision, Denies diplopia, Denies eye discharge, Denies loss of vision and Denies eye pain ENT: Reports as per HPI and Denies dizziness Comments: below tongue pain Cardiovascular: Cardiovascular: Reports no additional cardiovascular complaints, Denies chest pain, Denies lightheadedness, Denies Loss of Consciousness and Denies dyspnea Respiratory: Respiratory: Reports no additional respiratory complaints and Denies dyspnea Gastrointestinal: Gastrointestinal: Reports no additional gastrointestinal complaints, Denies abdominal pain, Denies melena, Denies hematochezia, Denies change in bowel habits and Denies change in stool character Genitourinary: Genitourinary: Denies hematuria, Denies urinary frequency, Denies dysuria, Denies urinary incontinence, Denies urinary hesitancy and Denies urinary urgency Musculoskeletal: Musculoskeletal: Reports no additional musculoskeletal complaints, Denies numbness and Denies tingling Neurologic: Denies dizziness, Denies loss of vision, Denies numbness and Denies tingling Psychiatric: Psychiatric: Reports no additional psychiatric complaints Endocrine: Endocrine: Reports no additional endocrine complaints Hematologic/Lymphatic: Hematologic/Lymphatic: Reports no additional hematologic/lymphatic complaints Allergic/Immunologic: Allergic/Immunologic: Reports no additional allergic/immunologic complaints [facility] Past Medical History Attestation statement: The following information was validated with the patient. Source: old records reviewed and nursing notes reviewed Medical History Umbilical hernia, incarcerated Alcohol use disorder Opioid use disorder Schizoaffective disorder, bipolar type Polysubstance use disorder Asthma PTSD (post-traumatic stress disorder) Recurrent major depression Social History Social History Household Members: None Housing: Other Housing Other:: trailer-can't live there though Do you presently have visiting nurse or other home services: No Unable to assess alcohol history related to: Unknown Alcohol intake: current Alcohol intake frequency: a few times a week Patient Tobacco Use Status: Current everyday Tobacco user Tobacco use type: Cigarette Cigarette Packs Per Day: 2 Cigarettes Per Day: 40.0 e-Cigarette/Vaping Use: Never Used Second Hand Smoke Exposure: No Substance Use Type: Other Substance Use Frequency: Chronic Longstanding Last Used Substance: Days (ago) Any prior treatment program specific to substance use: No Advance Directives: No Advance Directives Information Provided: No Do you have a plan to hurt others: Vague service: No Sexual orientation: Straight/Heterosexual Physical Exam ED Vital Signs: Vital Signs - 24 hr 04/11/25 12:05 04/11/25 14:24 Temperature 100.1 F 100 F Pulse Rate 112 H 98 Respiratory Rate 24 H 20 Blood Pressure 139/85 Pulse Oximetry 98 98 Oxygen Delivery Method Room Air Room Air BMI result Body Mass Index 35.7 Const General: alert, awake and ill appearing Nutritional Appearance: well nourished Orientation/consciousness: patient oriented x3 HENMT Head: Yes normal to inspection Ears: hearing grossly normal bilaterally and external ears normal General nose exam: Normal external nose present Face and sinus: Yes normal facial exam Mouth: lip normal, tongue normal and other (non-erythematous, non-edematous lesion on floor of mouth ) Eyes General: appearance normal, both eyes and all related structures Periorbital: periorbital findings normal Eyelids: Yes eyelids normal Conjunctivae: conjunctivae normal Pupils: Equal, round and reactive pupils present EOM: EOMs intact bilaterally Neck Neck: Yes normal visual inspection, Yes full ROM and Yes no lymphadenopathy Resp Effort & Inspection: normal respiratory effort and able to speak in complete sentences Cardio Rate: tachycardic Rhythm: regular rhythm Neuro General: patient oriented x3 Cranial nerves: Yes Equal, round and reactive pupils present Cognition (Neuro): normal cognition Extrem Other: bilateral forearm scarring from previous IVDU General: Yes full ROM and Yes capillary refill normal Left lower extremity: foot (Onychomycosis present on all toenails bilaterally) Psych Appearance: grossly normal Mental Status: mental status grossly normal Affect: normal affect Attitude: cooperative Thought process: Normal thought process present Thought content: Normal thought content present Insight: Good insight present (Psych) Medications Administered Discontinued Medications Generic Name Dose Route Start Last Admin Trade Name Freq PRN Reason Stop Dose Admin Ceftriaxone Sodium 1 gm 04/11/25 13:05 04/11/25 13:10 Ceftriaxone Sodium 1 Gm Vial IVPUSH 04/11/25 13:06 1 gm ONCE ONE Administration Diazepam 5 mg 04/11/25 12:23 04/11/25 12:37 Diazepam 10 Mg/2 Ml Cartridge IVPUSH 04/11/25 12:24 5 mg STAT STA Administration Diazepam 5 mg 04/11/25 14:53 04/11/25 15:00 Diazepam 10 Mg/2 Ml Cartridge IVPUSH 04/11/25 14:54 5 mg STAT STA Administration Diphenhydramine HCl 25 mg 04/11/25 12:59 04/11/25 13:12 Diphenhydramine Hcl 50 Mg/Ml Vial IVPUSH 04/11/25 13:00 25 mg ONCE ONE Administration Vancomycin HCl 1,000 mg/ 535 mls @ 267.5 mls/hr 04/11/25 13:15 04/11/25 14:17 Vancomycin HCl 750 mg/ Sodium IV 04/11/25 15:14 267.5 mls/hr Chloride ONCE ONE Administration Phenobarbital Sodium 201.5 mg 04/11/25 14:00 04/11/25 14:31 Phenobarbital Sodium 130 Mg/Ml Im Once IM 04/11/25 14:01 201.5 mg ONCE ONE Administration Protocol Medical Decision Making Medical Decision Making MDM Narrative: Patient is a 44 year old female with past medical history of IVDU (last use ), opioid and alcohol use disorder (last drink 04/10/2025 - hx of withdrawal seizures), schizoaffective disorder, PTSD, and major depression presents to ER on 04/11 with chief complaint of mouth infection from foot fungus. Patient's physical exam showed oral lesion consistent with thrush as well as tachycardia and an individual making spastic movements with her extremities. Patient was initially febrile upon presentation. Patient's blood work showed an ESR of 30, CRP of 8.33, AST 175, and ALT of 111. Patient's LFTs likely elevated secondary to chronic alcohol use. Patient's urine showed trace leuks and bacteria however, the patient's sample was not a clean catch. Patient's EKG showed tachycardia. Patient's chest x-ray showed no acute process. Patient's clinical presentation is most consistent with alcohol withdrawal vs. substance use vs. fever of unknown origin. I explained my physical exam findings as well as all test results to the patient. I answered all questions asked by the patient. Patient received IV vanc + ceftriaxone to cover for possible infection however, I do not believe the patient is septic as of 1424. Patient also received IV valium, benadryl, and phenobarb. Patient verbalized agreement and understanding with this treatment plan and admission. Differential Diagnosis Differential Diagnoses: The differential diagnosis associated with the presentation includes Fever of unknown origin Alcohol withdrawal Opiate withdrawal Admission/Observation Consideration of admission/observation: Escalation of care including admission/observation considered Patient admitted as noted in the MDM Rationale portion of this note. Consult Healthcare Provider Management of the patient was discussed with: Hospitalist (agreed to admission as noted in the MDM Rationale portion of this note. ) Lab Data [facility] Lab Attestation statement: I reviewed the patient's lab results. My interpretation of these results are in the MDM Rationale portion of this note. 04/11/25 12:51 04/11/25 12:51 Labs: Lab Results 04/11/25 04/11/25 04/11/25 Range/Units 12:28 12:50 12:51 WBC 10.4 (4.8-10.8) X10*3/uL RBC 3.75 L (4.20-5.50) X10*6/uL Hgb 10.7 L (12.0-16.0) g/dl Hct 31.9 L (37.0-47.0) % MCV 85.1 (80.0-98.0) fL MCH 28.5 (27.0-33.0) pg MCHC 33.5 (31.0-35.0) g/dl RDW 14.1 (11.0-16.0) % Plt Count 276 D (160-400) X10*3/uL MPV 11.3 (9.4-12.3) fL Immature Gran % (Auto) 0.3 (0.0-0.4) % Neut % (Auto) 78.2 H (45-73) % Lymph % (Auto) 11.1 L (20-40) % [place] % (Auto) 9.7 (2-11) % Eos % (Auto) 0.4 (0-4) % Baso % (Auto) 0.3 (0-2) % Lymph # (Auto) 1.2 (1.2-4.9) X10*3/uL [place] # (Auto) 1.0 (0.1-1.2) X10*3/uL Eos # (Auto) 0.0 (0.0-0.4) X10*3/uL Baso # (Auto) 0.0 (0.0-0.2) X10*3/uL Abs Immat Gran (auto) 0.03 (0.00-0.03) X10*3/uL Absolute Neuts (auto) 8.1 (2.0-8.3) x10*3/uL Absolute Nucleated RBC 0.000 (0.0-0.012) X10*3/uL Nucleated RBC % (auto) 0.0 (0.0-0.2) /100WBC ESR 30 H (0-20) MM/HR VBG pH (7.32-7.43) VBG pCO2 mmHg VBG pO2 mmHg VBG HCO3 (22-26) mmol/L VBG O2 Saturation % VBG Base Excess mmol/L Sodium 139 (135-145) mmol/L Potassium 3.9 (3.3-5.1) mmol/L Chloride 103 (96-108) mmol/L Carbon Dioxide 23 (22-29) mmol/L Anion Gap 17 (12-20) BUN 7 L (9-16) mg/dL Creatinine 0.54 (0.5-1.4) mg/dL Estim Creat Clear Calc 135.8 Estimated GFR > 60 Random Glucose 117 H (60-115) mg/dL Lactic Acid 1.8 (0.5-2.0) mmol/L Calcium 8.5 D (8.4-10.2) mg/dL Magnesium 1.8 (1.6-2.6) mg/dL Total Bilirubin 0.5 (0.0-1.0) mg/dL AST 175 H (5-31) U/L ALT 111 H (0-31) U/L Alkaline Phosphatase 93 (39-117) U/L C-Reactive Protein 8.33 H (< or = 0.50) mg/dL Total Protein 7.1 (6.5-8.0) g/dL Albumin 4.0 (3.5-5.0) g/dL Influenza Type A (PCR) NEGATIVE (Negative) Influenza Type B (PCR) NEGATIVE (Negative) RSV RNA Qual (PCR) NEGATIVE (Negative) SARS-CoV-2 RNA (RT-PCR) NEGATIVE (Negative) 04/11/25 Range/Units 13:00 WBC (4.8-10.8) X10*3/uL RBC (4.20-5.50) X10*6/uL Hgb (12.0-16.0) g/dl Hct (37.0-47.0) % MCV (80.0-98.0) fL MCH (27.0-33.0) pg MCHC (31.0-35.0) g/dl RDW (11.0-16.0) % Plt Count (160-400) X10*3/uL MPV (9.4-12.3) fL Immature Gran % (Auto) (0.0-0.4) % Neut % (Auto) (45-73) % Lymph % (Auto) (20-40) % [place] % (Auto) (2-11) % Eos % (Auto) (0-4) % Baso % (Auto) (0-2) % Lymph # (Auto) (1.2-4.9) X10*3/uL [place] # (Auto) (0.1-1.2) X10*3/uL Eos # (Auto) (0.0-0.4) X10*3/uL Baso # (Auto) (0.0-0.2) X10*3/uL Abs Immat Gran (auto) (0.00-0.03) X10*3/uL Absolute Neuts (auto) (2.0-8.3) x10*3/uL Absolute Nucleated RBC (0.0-0.012) X10*3/uL Nucleated RBC % (auto) (0.0-0.2) /100WBC ESR (0-20) MM/HR VBG pH 7.53 H (7.32-7.43) VBG pCO2 31 mmHg VBG pO2 76 mmHg VBG HCO3 27 H (22-26) mmol/L VBG O2 Saturation 97.0 % VBG Base Excess 4.9 mmol/L Sodium (135-145) mmol/L Potassium (3.3-5.1) mmol/L Chloride (96-108) mmol/L Carbon Dioxide (22-29) mmol/L Anion Gap (12-20) BUN (9-16) mg/dL Creatinine (0.5-1.4) mg/dL Estim Creat Clear Calc Estimated GFR Random Glucose (60-115) mg/dL Lactic Acid (0.5-2.0) mmol/L Calcium (8.4-10.2) mg/dL Magnesium (1.6-2.6) mg/dL Total Bilirubin (0.0-1.0) mg/dL AST (5-31) U/L ALT (0-31) U/L Alkaline Phosphatase (39-117) U/L C-Reactive Protein (< or = 0.50) mg/dL Total Protein (6.5-8.0) g/dL Albumin (3.5-5.0) g/dL Influenza Type A (PCR) (Negative) Influenza Type B (PCR) (Negative) RSV RNA Qual (PCR) (Negative) SARS-CoV-2 RNA (RT-PCR) (Negative) Independent Interpretation I performed an independent interpretation of an: EKG and Plain X-Ray Interpretation: My interpretation is in agreement with the radiologist's impression of this imaging study. L CLINICAL HISTORY: cough 2 view chest x-ray Comparison: CR/MA/SR - XR CHEST 2V - 06/21/24 12:48 EDT Findings: No consolidation or effusion. There is mild increase of bilateral interstitial lung markings which may represent reactive airway disease or viral infection. Heart size is normal. No acute fracture. IMPRESSION: No consolidation. This document has been electronically signed by: Aracelis Palacios MD on 04/11/2025 13:37:51 Dictated By: Aracelis Palacios MD Signed By: Electronically signed by Aracelis Palacios MD 04/11/25 1338 I independently interpreted this EKG and am in agreement with the below findings: Vent. Rate: 117 BPM Atrial Rate: 117 BPM P-R Int: 144 ms QRS Dur: 74 ms QT Int: 350 ms P-R-T Axes: 72 64 40 degrees QTcB Int: 488 ms Sinus tachycardia When compared with ECG of 09-Feb-2025 14:16, No significant change was found DD/ 1220 Radiology Impression Discussion of test interpretation with radiology: I have reviewed the radiologist's reading. Independent Historian Clinical information obtained from an independent historian. History obtained from or confirmed by: EMS (EMS provided additional history and confirmed the history provided by the patient. ) Critical Care Time Critical Care Time Critical Care Time: Yes Total Critical Care Time: 36 Attestation: I spent 36 minutes of Critical Care Time with this patient. This does not include time spent on separately reported billable procedures. Discharge Plan Discharge Clinical Impression: Alcohol withdrawal Patient Disposition: Admitted As Inpatient
--- NOTE | 2025-04-11 12:11 | ECG_ITS ---
Test Reason : chest pain Blood Pressure : */* mmHG Vent. Rate : 117 BPM Atrial Rate : 117 BPM P-R Int : 144 ms QRS Dur : 74 ms QT Int : 350 ms P-R-T Axes : 72 64 40 degrees QTcB Int : 488 ms Sinus tachycardia Septal infarct , age undetermined Abnormal ECG When compared with ECG of 09-Feb-2025 14:16, No significant change was found Referred By: Nancy Morgan Electronically Signed By: Zechariah Marrero
[2025-04-11] MEDS: diazePAM 10 MG/2 ML CARTRIDGE 5 MG IVPUSH ×2 (12:37→15:00)
[2025-04-11 13:00] LABS: MANUAL DIFF FLAG NO
[2025-04-11 13:03] LABS: Hematocrit 31.9 % (37.0-47.0); Hemoglobin 10.7 g/dl (12.0-16.0); Imm Gran Abs Auto 0.03 X10*3/uL (0.00-0.03); Imm Gran Pct Auto 0.3 % (0.0-0.4); Lymphocytes Absolute Auto 1.2 X10*3/uL (1.2-4.9); Mean Corpuscular HGB Conc 33.5 g/dl (31.0-35.0); Mean Corpuscular Hemoglobin 28.5 pg (27.0-33.0); Mean Corpuscular Volume 85.1 fL (80.0-98.0); NRBC Abs Auto 0.000 X10*3/uL (0.0-0.012); NRBC Pct Auto 0.0 /100WBC (0.0-0.2); Platelet Count 276 X10*3/uL (160-400); Red Blood Count 3.75 X10*6/uL (4.20-5.50); White Blood Count 10.4 X10*3/uL (4.8-10.8)
[2025-04-11 13:03] LABS: VBG HCO3 27 mmol/L (22-26); VBG O2 % Saturation 97.0 %
[2025-04-11 13:09] LABS: Venous Blood Gas Refer to POC result
[2025-04-11 13:19] LABS: Resp Syncy Virus RNA Qual PCR NEGATIVE (Negative); SARS COV2 PCR INHOUSE NEGATIVE (Negative)
[2025-04-11 13:36] LABS: Alanine Aminotransferase 111 U/L (0-31); Albumin Level 4.0 g/dL (3.5-5.0); Alkaline Phosphatase 93 U/L (39-117); Anion Gap 17 (12-20); Aspartate Amino Transferase 175 U/L (5-31); Blood Urea Nitrogen 7 mg/dL (9-16); Calcium 8.5 mg/dL (8.4-10.2); Carbon Dioxide 23 mmol/L (22-29); Chloride 103 mmol/L (96-108); Creatinine Clr Calc Pharmacy 135.8; Estimated Glomerular Filt Rate > 60; Magnesium 1.8 mg/dL (1.6-2.6); Potassium 3.9 mmol/L (3.3-5.1); Sodium 139 mmol/L (135-145); Total Protein 7.1 g/dL (6.5-8.0)
[2025-04-11] MEDS: vancomycin HCL 1,000 MG, vancomycin HCL 750 MG in 0.9 % Sodium Chloride 500 ML 267.5 MG IV (14:17)
[2025-04-11] MEDS: PHENobarbitaL sodium 130 MG/ML IM ONCE 201.5 MG IM (14:31)
--- NOTE | 2025-04-11 14:37 | P.HPHOSP_ITS ---
History of Present Illness Date of Service: 04/11/25 Chief Complaint: Ajay mentala status 44-year-old female with a past medical history of IV drug abuse, history of schizoaffective disorder, bipolar type, severe PTSD, opioid and alcohol abuse, frequent Psychiatric hospitalization. Patient to the Ed in a restless stated, constantly moving, and reportedly has been using subtance in cluding alcohol and heroin, and last use yesterday. There is a low grade temp of 100, initially tachycy, wbc is 10, ESR 30, because of low grade, she's given Vancomycin and Ceftriaxone and there is no obviou source of infection. She's also given phenobarbital for alcohol withdrwal. Concern is more opioid withdrwal or withdrwal from other ilicit substances. Review of Systems 2 Review of Systems: Gen: no fever Resp: no sob, no cough CV: no chest, no BERNARD, no leg edema GI: No n/v, no abd pain Neuro: No confusion, restless, constantly moving [facility] Medical History Umbilical hernia, incarcerated Alcohol use disorder Opioid use disorder Schizoaffective disorder, bipolar type Polysubstance use disorder Asthma PTSD (post-traumatic stress disorder) Recurrent major depression Social History Household Members: None Housing: Other Housing Other:: mobile home Do you presently have visiting nurse or other home services: No Unable to assess alcohol history related to: Unknown Alcohol intake: current Alcohol intake frequency: a few times a week Patient Tobacco Use Status: Current everyday Tobacco user Tobacco use type: Cigarette Cigarette Packs Per Day: 2 Cigarettes Per Day: 40.0 Smoked in Last 30 Days: Yes e-Cigarette/Vaping Use: Currently Using Patient Interested in Nicotine Replacement: Yes Patient Given Instructions on How to Stop Smoking: No (refusied;; too ill) Second Hand Smoke Exposure: No Substance Use Type: Other Substance Use Frequency: Chronic Longstanding Last Used Substance: Days (ago) Currently Displaying Signs/Symptoms of Drug Intoxication Withdrawal: Yes Any prior treatment program specific to substance use: No Have you been hit, kicked, punched, or otherwise hurt by someone within the past year? If so, by whom?: No Do you feel safe in your current relationship?: No Current Relationship Is there a partner from a previous relationship who is making you feel unsafe now?: No Are you made to feel afraid or neglected: No Advance Directives: No Advance Directives Information Provided: No Do you have a plan to hurt others: No Plan Recently lost weight without trying: No How much weight loss: Unsure Eating poorly because of decreased appetite: No Nutrition screen score: 2 Nutrition Risks: Dental problems and Difficulty chewing Patient : No : No Poor oral hygiene: No service: No Sexual orientation: Straight/Heterosexual Meds Allergies Allergy/AdvReac Type Severity Reaction Status Date / Time Penicillins Allergy Intermediate HIVES Verified 04/11/25 12:53 Active Medications: Current Medications Vancomycin HCl 1,000 mg/Vancomycin HCl 750 mg/ Sodium Chloride 535 mls @ 267.5 mls/hr IV ONCE ONE Stop: 04/11/25 15:14 Last Admin: 04/11/25 14:17 Dose: 267.5 mls/hr Pharmacy Consult (Consult Rx Etoh Phenob Im/Po) 1 each MISCELLANE ONCE PRN; Protocol PRN Reason: Consult order Phenobarbital (Phenobarbital 15 Mg Tablet) 45 mg PO BID IJEOMA; Protocol Stop: 04/13/25 21:01 Phenobarbital (Phenobarbital 15 Mg Tablet) 15 mg PO BID IJEOMA; Protocol Stop: 04/15/25 21:01 Phenobarbital (Phenobarbital 15 Mg Tablet) 15 mg PO DAILY IJEOMA; Protocol Stop: 04/17/25 09:01 Phenobarbital Sodium (Phenobarbital Sodium 130 Mg/Ml Vial Im Q3hx2) 149.5 mg IM Q3H IJEOMA; Protocol Stop: 04/11/25 20:01 Home Medications ?Medication ?Instructions ?Recorded ?Confirmed ?Last Taken ?Type buprenorphine 4 mg-naloxone 1 mg 1 film sublingual TID 04/11/25 04/11/25 Unknown History sublingual film chlorpromazine 100 mg tablet 100 mg PO BID PRN severe anxiety 04/11/25 04/11/25 Unknown History clonidine HCl 0.1 mg tablet 0.1 mg PO BEDTIME PRN Anxi ety 04/11/25 04/11/25 Unknown History clonidine HCl 0.1 mg tablet 0.1 mg PO Q4H PRN moderate anxiety 04/11/25 04/11/25 Unknown History cyclobenzaprine 10 mg tablet 10 mg PO TID PRN muscle s pasms 04/11/25 04/11/25 Unknown History hydroxyzine pamoate 50 mg capsule 50 mg PO QID PRN mil d Anxiety 04/11/25 04/11/25 Unknown History propranolol 40 mg tablet 40 mg PO BID 04/11/25 Unknown History quetiapine 25 mg tablet 25 mg PO TID PRN Agitation 0 04/11/25 04/12/25 Unknown History melatonin 3 mg tablet 3 mg PO BEDTIME PRN Insomnia 04/12/25 04/12/25 Unknown History Physical Exam 2 Vital Signs and Narrative: Vital Signs: Last Vital Signs Temp 100 F 04/11/25 14:24 Pulse 98 04/11/25 14:24 Resp 20 04/11/25 14:24 BP 139/85 04/11/25 14:24 Pulse Ox 98 04/11/25 14:24 O2 Del Method Room Air 04/11/25 14:24 BMI result Body Mass Index 35.7 Const: Other: Constitutional: Alert, oriented, yet very restless and constantly moving, thrashing in bed whitisn thing under tongue, none on togue or throat Mental Status: Oriented to person, place and time. Eyes: Pupils are equal, round and reactive to light. Ear, Nose and Throat: Oropharynx clear, mucous membranes moist. Ears and nose without eformities. Trachea midline.. I did not apreciate thrush reported by ED Respiratory: Clear to auscultation. No wheezing, rales or rhonchi. Cardiovascular: S1 S2 regular. No murmurs, rubs or gallops. Gastrointestinal: Abdomen soft, non-tender, non-distended. Normal bowel sounds.? Neurologic: Cranial nerves II-XII grossly intact. No focal neurological deficits. Moves all extremities spontaneously.? she is constantly moving all over the place in the eb Skin: No rashes or lesions.? Musculoskeletal: No cyanosis or clubbing. Psychiatric: Normal mood and affect? Results Labs 04/11/25 12:51 04/11/25 12:51 Labs: Laboratory Results - last 24 hr 04/11/25 04/11/25 04/11/25 12:28 12:50 12:51 MCV 85.1 MCH 28.5 MCHC 33.5 RDW 14.1 Plt Count 276 D MPV 11.3 Immature Gran % (Auto) 0.3 Neut % (Auto) 78.2 H Lymph % (Auto) 11.1 L [place] % (Auto) 9.7 Eos % (Auto) 0.4 Baso % (Auto) 0.3 Lymph # (Auto) 1.2 [place] # (Auto) 1.0 Eos # (Auto) 0.0 Baso # (Auto) 0.0 Abs Immat Gran (auto) 0.03 Absolute Neuts (auto) 8.1 Absolute Nucleated RBC 0.000 Nucleated RBC % (auto) 0.0 ESR 30 H VBG pH VBG pCO2 VBG pO2 VBG HCO3 VBG O2 Saturation VBG Base Excess Anion Gap 17 Estim Creat Clear Calc 135.8 Estimated GFR > 60 Random Glucose 117 H Lactic Acid 1.8 Calcium 8.5 D Magnesium 1.8 Total Bilirubin 0.5 AST 175 H ALT 111 H Alkaline Phosphatase 93 C-Reactive Protein 8.33 H Total Protein 7.1 Albumin 4.0 Influenza Type A (PCR) NEGATIVE Influenza Type B (PCR) NEGATIVE RSV RNA Qual (PCR) NEGATIVE SARS-CoV-2 RNA (RT-PCR) NEGATIVE 04/11/25 13:00 MCV MCH MCHC RDW Plt Count MPV Immature Gran % (Auto) Neut % (Auto) Lymph % (Auto) [place] % (Auto) Eos % (Auto) Baso % (Auto) Lymph # (Auto) [place] # (Auto) Eos # (Auto) Baso # (Auto) Abs Immat Gran (auto) Absolute Neuts (auto) Absolute Nucleated RBC Nucleated RBC % (auto) ESR VBG pH 7.53 H VBG pCO2 31 VBG pO2 76 VBG HCO3 27 H VBG O2 Saturation 97.0 VBG Base Excess 4.9 Anion Gap Estim Creat Clear Calc Estimated GFR Random Glucose Lactic Acid Calcium Magnesium Total Bilirubin AST ALT Alkaline Phosphatase C-Reactive Protein Total Protein Albumin Influenza Type A (PCR) Influenza Type B (PCR) RSV RNA Qual (PCR) SARS-CoV-2 RNA (RT-PCR) Assessment and Plan (1) Alcohol use disorder: Status: Acute (2) Opioid use disorder: Status: Acute Plan 44-year-old female with a past medical history of IV drug abuse, history of schizoaffective disorder, bipolar type, severe PTSD, opioid and alcohol abuse, frequent Psychiatric hospitalization. Here with restlenss, agitation, likely related to substance use and possible alcohol withdrawal Withdrawal from suspected opioid, posibly fentanyl and other Possible alcohol withdrawal as well She has been started on Phenobarbital and given dose of Valium Urine tox screen is not yet available Add Clonidine and Hydroxyzine to help with symptom IVF, thiamine, folic replacement Addiction med consult If she continues to be unmanageable she may need precedex in the ICU H/o mental illness/Schizophrenia Will restart med once med rec is available Low grade temp of 100, normal WBC, hold addtional Abx at this uniles fever greater than 101, or positive cultures DVT prophylaxis: lovenox full code Quality Stroke Does the patient have a stroke diagnosis?: No VTE Prior VTE?: No VTE Risk Level:: Medical - moderate - high VTE Device Contraindication: N/A - Device Ordered VTE Drug Contraindication: N/A - Med Ordered
[2025-04-11 14:57] LABS: Appearance Urine Cloudy; Glucose Urine UA Negative (Negative); PH 6.0 (5.0-9.0); Specific Gravity - Urine 1.015 (1.005-1.025); UMIC TRIGGER UACC YES
[2025-04-11 15:02] LABS: UACC Culture Trigger YES
--- NOTE | 2025-04-11 15:04 | PC.NURSE ---
Pt noted to become extremely restless and diaphoretic. Provider at bedside, new orders received and pt medicated for restlessness and agitation.
--- NOTE | 2025-04-11 15:23 | PC.NURSE ---
Pt appears to be decreasing in agitation and restlessness.
[2025-04-11 16:03] LABS: Cannabinoid Screen Urine POSITIVE (Not Detect)
[2025-04-11] MEDS: Lactated Ringers 1,000 ML 125 ML IVCONT (16:52)
[2025-04-11] MEDS: 0.9 % Sodium Chloride Flush 3 ML SYRINGE IVFLUSH (16:57)
[2025-04-11] MEDS: Thiamine HCL 100 MG in 0.9 % Sodium Chloride 100 ML 202 MG IV (17:00)
[2025-04-11] MEDS: PHENobarbitaL sodium 130 MG/ML VIAL IM Q3Hx2 149.5 MG IM ×2 (17:24→22:08)
--- NOTE | 2025-04-11 17:49 | PHA.MEDREC ---
Addendum entered by Bonilla Kidd RPh 04/12/25 12:18: Spoke to Mary Ann at [facility] [phone] to confirm medication list and directions. Per Mary Ann, patient picked up her February fills but the March refills are still waiting for patient at pharmacy. Patient has a new rx of suboxone 4-1 mg film tid that hasn't been picked up yet. Message was sent to Dr. Bruno to see if he wants the suboxone in patient's med list (since she hasn't started it yet) but hasn't gotten any reply from him yet. Original Note: Pharmacy Consult ? Medication Reconciliation Pharmacy has completed the medication reconciliation, utilized claims to complete med rec, will have AM team follow up on directions for a couple of them.
--- NOTE | 2025-04-11 19:48 | PC.NURSE ---
Pt resting comfortably at this time.
[2025-04-12] MEDS: Lactated Ringers 1,000 ML 125 ML IVCONT ×3 (03:46→23:31)
[2025-04-12 03:49] VITALS: BP 161/79; PULSE 85; RESP 18; TEMP 36.4; O2SAT 96
[2025-04-12 06:24] VITALS: BP 154/74
[2025-04-12] MEDS: methADONE HCl 20 MG/2 ML ORAL.CONC 30 MG PO (10:18)
[2025-04-12] MEDS: Thiamine HCL 100 MG in 0.9 % Sodium Chloride 100 ML 202 MG IV (10:28)
--- NOTE | 2025-04-12 10:44 | HO.PM.IMPN ---
Subjective Subjective Date of Service: 04/12/25 Interval History: Reports feeling overall generalized pain that is somewhat outside of her normal aches and pains, is emotional, but denies any SI/HI Denies nausea/vomiting or chills Denies headache, sweating, or tremors, no auditory or visual hallucinations. No fever Physical Exam Vital Signs: Vital Signs: Last Vital Signs Temp 97.5 F 04/12/25 03:49 Pulse 85 04/12/25 03:49 Resp 18 04/12/25 03:49 BP 154/74 H 04/12/25 06:24 Pulse Ox 96 04/12/25 03:49 O2 Del Method Room Air 04/12/25 03:49 BMI result Body Mass Index 35.7 Const: Orientation/consciousness: patient oriented x3 HEENT: Other: Resp: Effort & Inspection: normal respiratory effort and able to speak in complete sentences Auscultation: clear to auscultation bilaterally and diminished lung sounds bilateral (bases) Cardio: Jugular venous distension: no JVD Rate: regular rate Rhythm: regular rhythm Heart sounds: S1 normal heart sound present and S2 normal heart sound present Peripheral pulses: Peripheral pulses 2+ throughout GI: Palpation (GI): Soft to palpation Auscultation: normal bowel sounds : General: Yes no CVA tenderness Back/Spine/Pelvis: Back: no CVA tenderness Neuro: General: patient oriented x3, no focal motor deficits and CN's II-XI intact bilaterally Extrem: General: Yes full ROM Psych: Affect: Sad affect present (intermittently tearful ) and Irritable affect present Objective Data Active Medications Acetaminophen (Acetaminophen 325 Mg Tablet) 650 mg PO Q6H PRN PRN Reason: Pain, Mild 1-3,fever,headache Al Hydroxide/Mg Hydroxide (Magnesium Hydrox/Alum Hydrox 30 Ml Oral.Susp) 30 ml PO Q4H PRN PRN Reason: Heartburn Calcium Carbonate (Calcium Carbonate 750 Mg Tab.Chew) 750 mg PO Q4H PRN PRN Reason: Heartburn Clonidine HCl (Clonidine Hcl 0.1 Mg Tablet) 0.1 mg PO TID PRN; Protocol PRN Reason: Opiate Withdrawal Last Admin: 04/12/25 06:31 Dose: 0.1 mg Documented By: ABI Hydroxyzine HCl (Hydroxyzine Hcl 25 Mg Tablet) 25 mg PO Q6H PRN PRN Reason: anxiety/restlessness Last Admin: 04/12/25 10:26 Dose: 25 mg Documented By: EDWARDO Lactated Ringer's (Lr) 1,000 mls @ 125 mls/hr IVCONT .Q8H IJEOMA Last Admin: 04/12/25 03:46 Dose: 125 mls/hr Documented By: ABI Folic Acid 1 mg/ Sodium (Chloride) 50.2 mls @ 100.4 mls/hr IV DAILY IJEOMA Last Infusion: 04/11/25 19:47 Dose: Infused Documented By: YURIY Thiamine HCl 100 mg/ Sodium (Chloride) 101 mls @ 202 mls/hr IV DAILY IJEOMA Last Admin: 04/12/25 10:28 Dose: 202 mls/hr Documented By: EDWARDO Magnesium Hydroxide (Milk Of Magnesia 30 Ml Oral.Susp) 30 ml PO DAILY PRN PRN Reason: Constipation Melatonin (Melatonin 3 Mg Tablet) 6 mg PO BEDTIME PRN PRN Reason: Insomnia Ondansetron HCl (Ondansetron Hcl 4 Mg/2 Ml Vial) 4 mg IVPUSH Q8H PRN PRN Reason: Nausea and Vomiting Pharmacy Consult (Consult Rx Etoh Phenob Im/Po) 1 each MISCELLANE ONCE PRN; Protocol PRN Reason: Consult order Phenobarbital (Phenobarbital 15 Mg Tablet) 45 mg PO BID [facility]; Protocol Stop: 04/13/25 21:01 Last Admin: 04/12/25 10:26 Dose: 45 mg Documented By: EDWARDO Phenobarbital (Phenobarbital 15 Mg Tablet) 15 mg PO BID [facility]; Protocol Stop: 04/15/25 21:01 Phenobarbital (Phenobarbital 15 Mg Tablet) 15 mg PO DAILY [facility]; Protocol Stop: 04/17/25 09:01 Sodium Chloride (0.9 % Sodium Chloride Flush 3 Ml Syringe) 3 ml IVFLUSH QSHIFT [facility] Last Admin: 04/12/25 03:47 Dose: Not Given Documented By: ABI Non-Admin Reason: IV Running Labs 04/11/25 12:51 04/11/25 12:51 Labs: Laboratory Results - last 24 hr 04/11/25 04/11/25 04/11/25 12:28 12:50 12:51 MCV 85.1 MCH 28.5 MCHC 33.5 RDW 14.1 Plt Count 276 D MPV 11.3 Immature Gran % (Auto) 0.3 Neut % (Auto) 78.2 H Lymph % (Auto) 11.1 L [place] % (Auto) 9.7 Eos % (Auto) 0.4 Baso % (Auto) 0.3 Lymph # (Auto) 1.2 [place] # (Auto) 1.0 Eos # (Auto) 0.0 Baso # (Auto) 0.0 Abs Immat Gran (auto) 0.03 Absolute Neuts (auto) 8.1 Absolute Nucleated RBC 0.000 Nucleated RBC % (auto) 0.0 ESR 30 H VBG pH VBG pCO2 VBG pO2 VBG HCO3 VBG O2 Saturation VBG Base Excess Anion Gap 17 Estim Creat Clear Calc 135.8 Estimated GFR > 60 Random Glucose 117 H Lactic Acid 1.8 Calcium 8.5 D Magnesium 1.8 Total Bilirubin 0.5 AST 175 H ALT 111 H Alkaline Phosphatase 93 C-Reactive Protein 8.33 H Total Protein 7.1 Albumin 4.0 Urine Color Urine Appearance Urine pH Ur Specific [place] Urine Protein Urine Glucose (UA) Urine Ketones Urine Blood Urine Nitrite Ur Leukocyte Esterase Urine RBC Urine WBC Ur Squamous Epith Cells Urine Bacteria Hyaline Casts Urine Opiates Screen Ur Buprenorphine Scrn Ur Oxycodone Screen Urine Methadone Screen Urine Fentanyl Screen Ur Barbiturates Screen Ur Phencyclidine Scrn Ur Amphetamines Screen U Benzodiazepines Scrn Urine Cocaine Screen U Marijuana (THC) Screen Influenza Type A (PCR) NEGATIVE Influenza Type B (PCR) NEGATIVE RSV RNA Qual (PCR) NEGATIVE SARS-CoV-2 RNA (RT-PCR) NEGATIVE 04/11/25 04/11/25 13:00 14:48 MCV MCH MCHC RDW Plt Count MPV Immature Gran % (Auto) Neut % (Auto) Lymph % (Auto) [place] % (Auto) Eos % (Auto) Baso % (Auto) Lymph # (Auto) [place] # (Auto) Eos # (Auto) Baso # (Auto) Abs Immat Gran (auto) Absolute Neuts (auto) Absolute Nucleated RBC Nucleated RBC % (auto) ESR VBG pH 7.53 H VBG pCO2 31 VBG pO2 76 VBG HCO3 27 H VBG O2 Saturation 97.0 VBG Base Excess 4.9 Anion Gap Estim Creat Clear Calc Estimated GFR Random Glucose Lactic Acid Calcium Magnesium Total Bilirubin AST ALT Alkaline Phosphatase C-Reactive Protein Total Protein Albumin Urine Color Yellow Urine Appearance Cloudy Urine pH 6.0 Ur Specific [place] 1.015 Urine Protein 30 (1+) H Urine Glucose (UA) Negative Urine Ketones 15 Urine Blood Large (3+) H Urine Nitrite Negative Ur Leukocyte Esterase Trace H Urine RBC 6-10 H Urine WBC 6-10 H Ur Squamous Epith Cells >20 Urine Bacteria 4+ Hyaline Casts 0-2 Urine Opiates Screen Not Detected Ur Buprenorphine Scrn Positive H Ur Oxycodone Screen Not Detected Urine Methadone Screen Not Detected Urine Fentanyl Screen POSITIVE H Ur Barbiturates Screen Not Detected Ur Phencyclidine Scrn Not Detected Ur Amphetamines Screen Not Detected U Benzodiazepines Scrn POSITIVE H Urine Cocaine Screen POSITIVE H U Marijuana (THC) Screen POSITIVE H Influenza Type A (PCR) Influenza Type B (PCR) RSV RNA Qual (PCR) SARS-CoV-2 RNA (RT-PCR) Microbiology Microbiology Results: Microbiology 04/11/25 Unknown Urine Culture - Preliminary Urine clean catch - Clean Catch Midstream Culture too young to evaluate. Assessment and Plan (1) Alcohol withdrawal: Status: Acute (2) Opioid use disorder: Status: Acute Plan 44-year-old female with a past medical history of IV drug abuse, history of schizoaffective disorder, bipolar type, severe PTSD, opioid and alcohol abuse, frequent Psychiatric hospitalization. Here with restlessness and agitation, likely related to substance use and possible alcohol withdrawal. Withdrawal suspected from drugs (Urine tox positive for Buprenorphine, Fentanyl, benzodiazepines, cocaine, and Marijuana (THC) , and Alcohol withdrawal as well--overall improving continue Phenobarbital Monitor CIWA and COWs Clonidine and Hydroxyzine to help with symptom IVF, thiamine, and folic replacement Addiction med consulted No indication higher level of care H/o mental illness/Schizophrenia/Depression/PTSD, she is a alot of meds, unclear of compliance Psych to review appropriateness of meds Low grade temp of 100, normal WBC, Holding any addtional Abx at this unless fever greater than 101, or positive cultures Whitish sore under the tongue, none on tongue or throat, see pic will try Nystatin and if doesn't resolve may need Bx DVT prophylaxis: lovenox full code Quality Stroke Does the patient have a stroke diagnosis?: No VTE Prior VTE?: No VTE Risk Level:: Medical - moderate - high VTE Device Contraindication: Treatment Not Indicated VTE Drug Contraindication: N/A - Med Ordered
[2025-04-12 11:19] VITALS: BP 106/64; PULSE 97; RESP 20; TEMP 36.4; O2SAT 96
--- NOTE | 2025-04-12 13:46 | MHC.CM.PN ---
IMM 04/12/25, EMR REVIEWED, PT W/OPIATE/ETOH WITHDRAWAL, CM MET W/PT WHO REPORTS SHE LIVES ALONE, PT REPORTS SHE IS FULLY INDEP W/ALL CARE, DENIES USE OF DME/HOME SERVICES, GOAL FOR DC IS HOME NO SERVICES. PT DOES VERIFY SHE HAS NO PCP AND [facility] PROVIDER LIST, PT EDUCATED ON AND DECLINES TO COMPLETE A HCP.
--- NOTE | 2025-04-12 14:50 | HO.ADDICT_ITS ---
History of Present Illness Date of Service: 04/12/2025 Chief Complaint: Alcohol Withdrawal Reason for Consult: MARCOS Sources of Information: patient interviewed and chart reviewed HPI Narrative: Patient is a 44 year old female with x of schizoaffective disorder who presented to [facility], complaining of oral infection. While in ED patient was noted to be in acute alcohol withdrawal. Consult requested due to current substance and alcohol use. Patient seen several times throughout the day--1st time, she was awake, alert, in bed, restless, and somewhat engaged in interview. She reported feeling sick . UDS +fentanyl and buprenorphine--patient denies taking buprenorphine, including either injection. She reports using 2-3 bundles daily. When asked if she wanted to start MOUD, she said yes, and agreeable to methadone. She appeared diaphoretic, restless. Methadone 30mg X1 ordered---patient seen again, about 90mins later, methadone not yet administered, and patient now crying out loudly, unable to stay still, diaphoretic and yelling out that she felt like she was crawling out of her skin. Methadone administered shortly after with positive effect--as during re- evaluation, patient was noted to be sleeping, no longer diaphoretic, still appeared to be having some muscle spasms. Chart reviewed further, and buprenorphine not visible on [facility], however, it did appear home med list. Prescriber name is not listed, but per the med list it seems it was last filled on 04/06/25-8mg TID via [facility]. In terms of alcoho withdrawal, pheno taper has been started --opiate withdrawal sx are likely impacting CIWA scores. Past Psychiatric History: IP: 5+ per pt past SA, overdose OP: No current team Leidy schizoaffective disorder: hx of manic episodes, while sober, that last from 3-7 days and include racing thoughts, rapid speech, hyperactivity, excessive spending/shopping, buying scratch tickets.. no sleep, risky behaviors? friends notice these changes and post episode she gets very depressed. History of AH, independent of mood Medical Evaluation Reviewed: Yes Review of Systems Constitutional: Reports as per HPI Comments: unable to evaluate much further due to acuity of withdrawal sx Diagnostics Vital Signs (24Hr): Vital Signs - 24 hr 04/11/25 15:23 04/11/25 16:42 04/11/25 17:52 Temperature 97.9 F Pulse Rate 113 H 104 H 100 Respiratory Rate 22 H 23 H 22 H Blood Pressure 133/88 130/82 133/78 Pulse Oximetry 99 99 Oxygen Delivery Method Room Air Room Air Room Air 04/11/25 21:31 04/11/25 23:37 04/12/25 03:49 Temperature 97.0 F 97.4 F 97.5 F Pulse Rate 75 70 85 Respiratory Rate 20 18 18 Blood Pressure 126/64 132/74 161/79 H Pulse Oximetry 100 96 96 Oxygen Delivery Method Room Air Room Air Room Air 04/12/25 06:24 04/12/25 11:19 Temperature 97.6 F Pulse Rate 97 Respiratory Rate 20 Blood Pressure 154/74 H 106/64 Pulse Oximetry 96 Oxygen Delivery Method Room Air BMI result Body Mass Index 35.7 Labs 04/11/25 12:51 04/11/25 12:51 Labs: Laboratory Results - last 48 hr 04/11/25 04/11/25 04/11/25 12:28 12:50 12:51 WBC 10.4 RBC 3.75 L Hgb 10.7 L Hct 31.9 L MCV 85.1 MCH 28.5 MCHC 33.5 RDW 14.1 Plt Count 276 D MPV 11.3 Immature Gran % (Auto) 0.3 Neut % (Auto) 78.2 H Lymph % (Auto) 11.1 L [place] % (Auto) 9.7 Eos % (Auto) 0.4 Baso % (Auto) 0.3 Lymph # (Auto) 1.2 [place] # (Auto) 1.0 Eos # (Auto) 0.0 Baso # (Auto) 0.0 Abs Immat Gran (auto) 0.03 Absolute Neuts (auto) 8.1 Absolute Nucleated RBC 0.000 Nucleated RBC % (auto) 0.0 ESR 30 H VBG pH VBG pCO2 VBG pO2 VBG HCO3 VBG O2 Saturation VBG Base Excess Sodium 139 Potassium 3.9 Chloride 103 Carbon Dioxide 23 Anion Gap 17 BUN 7 L Creatinine 0.54 Estim Creat Clear Calc 135.8 Estimated GFR > 60 Random Glucose 117 H Lactic Acid 1.8 Calcium 8.5 D Magnesium 1.8 Total Bilirubin 0.5 AST 175 H ALT 111 H Alkaline Phosphatase 93 C-Reactive Protein 8.33 H Total Protein 7.1 Albumin 4.0 Urine Color Urine Appearance Urine pH Ur Specific [place] Urine Protein Urine Glucose (UA) Urine Ketones Urine Blood Urine Nitrite Ur Leukocyte Esterase Urine RBC Urine WBC Ur Squamous Epith Cells Urine Bacteria Hyaline Casts Urine Opiates Screen Ur Buprenorphine Scrn Ur Oxycodone Screen Urine Methadone Screen Urine Fentanyl Screen Ur Barbiturates Screen Ur Phencyclidine Scrn Ur Amphetamines Screen U Benzodiazepines Scrn Urine Cocaine Screen U Marijuana (THC) Screen Influenza Type A (PCR) NEGATIVE Influenza Type B (PCR) NEGATIVE RSV RNA Qual (PCR) NEGATIVE SARS-CoV-2 RNA (RT-PCR) NEGATIVE 04/11/25 04/11/25 13:00 14:48 WBC RBC Hgb Hct MCV MCH MCHC RDW Plt Count MPV Immature Gran % (Auto) Neut % (Auto) Lymph % (Auto) [place] % (Auto) Eos % (Auto) Baso % (Auto) Lymph # (Auto) [place] # (Auto) Eos # (Auto) Baso # (Auto) Abs Immat Gran (auto) Absolute Neuts (auto) Absolute Nucleated RBC Nucleated RBC % (auto) ESR VBG pH 7.53 H VBG pCO2 31 VBG pO2 76 VBG HCO3 27 H VBG O2 Saturation 97.0 VBG Base Excess 4.9 Sodium Potassium Chloride Carbon Dioxide Anion Gap BUN Creatinine Estim Creat Clear Calc Estimated GFR Random Glucose Lactic Acid Calcium Magnesium Total Bilirubin AST ALT Alkaline Phosphatase C-Reactive Protein Total Protein Albumin Urine Color Yellow Urine Appearance Cloudy Urine pH 6.0 Ur Specific [place] 1.015 Urine Protein 30 (1+) H Urine Glucose (UA) Negative Urine Ketones 15 Urine Blood Large (3+) H Urine Nitrite Negative Ur Leukocyte Esterase Trace H Urine RBC 6-10 H Urine WBC 6-10 H Ur Squamous Epith Cells >20 Urine Bacteria 4+ Hyaline Casts 0-2 Urine Opiates Screen Not Detected Ur Buprenorphine Scrn Positive H Ur Oxycodone Screen Not Detected Urine Methadone Screen Not Detected Urine Fentanyl Screen POSITIVE H Ur Barbiturates Screen Not Detected Ur Phencyclidine Scrn Not Detected Ur Amphetamines Screen Not Detected U Benzodiazepines Scrn POSITIVE H Urine Cocaine Screen POSITIVE H U Marijuana (THC) Screen POSITIVE H Influenza Type A (PCR) Influenza Type B (PCR) RSV RNA Qual (PCR) SARS-CoV-2 RNA (RT-PCR) Mental Status Exam Mental Status Exam Patient Appearance: Perspiring Level of Consciousness: Awake and Alert Patient Behavior: Restless Affect Description: Anxious Medications Medications Current Medications Acetaminophen (Acetaminophen 325 Mg Tablet) 650 mg PO Q6H PRN PRN Reason: Pain, Mild 1-3,fever,headache Al Hydroxide/Mg Hydroxide (Magnesium Hydrox/Alum Hydrox 30 Ml Oral.Susp) 30 ml PO Q4H PRN PRN Reason: Heartburn Albuterol Sulfate (Albuterol Sulfate 90 Mcg 8 Gm Inhaler) 2 puff INHALE Q6H PRN PRN Reason: Wheezing Buprenorphine/Naloxone (Buprenorphine/Naloxone 4/1 Mg Film) 1 film SUBLINGUAL TID IJEOMA Calcium Carbonate (Calcium Carbonate 750 Mg Tab.Chew) 750 mg PO Q4H PRN PRN Reason: Heartburn Chlorpromazine HCl (Chlorpromazine Hcl 100 Mg Tablet) 100 mg PO BID PRN PRN Reason: severe anxiety Clonazepam (Clonazepam 0.5 Mg Tablet) 0.5 mg PO TID PRN PRN Reason: anxiety/restlessness Clonidine HCl (Clonidine Hcl 0.1 Mg Tablet) 0.1 mg PO Q8H PRN; Protocol PRN Reason: Opiate Withdrawal Clonidine HCl (Clonidine Hcl 0.1 Mg Tablet) 0.1 mg PO Q4H PRN; Protocol PRN Reason: moderate anxiety Doxepin HCl (Doxepin Hcl 10 Mg Capsule) 20 mg PO BEDTIME IJEOMA Hydroxyzine HCl (Hydroxyzine Hcl 25 Mg Tablet) 25 mg PO Q6H PRN PRN Reason: anxiety/restlessness Last Admin: 04/12/25 10:26 Dose: 25 mg Lactated Ringer's (Lr) 1,000 mls @ 125 mls/hr IVCONT .Q8H [facility] Last Admin: 04/12/25 03:46 Dose: 125 mls/hr Folic Acid 1 mg/ Sodium (Chloride) 50.2 mls @ 100.4 mls/hr IV DAILY [facility] Last Infusion: 04/11/25 19:47 Dose: Infused Thiamine HCl 100 mg/ Sodium (Chloride) 101 mls @ 202 mls/hr IV DAILY [facility] Last Admin: 04/12/25 10:28 Dose: 202 mls/hr Magnesium Hydroxide (Milk Of Magnesia 30 Ml Oral.Susp) 30 ml PO DAILY PRN PRN Reason: Constipation Melatonin (Melatonin 3 Mg Tablet) 6 mg PO BEDTIME PRN PRN Reason: Insomnia Nystatin (Nystatin Oral Susp 500,000 Unit/5 Ml Oral.Susp) 400,000 unit PO QID IJEOMA; Protocol Ondansetron HCl (Ondansetron Hcl 4 Mg/2 Ml Vial) 4 mg IVPUSH Q8H PRN PRN Reason: Nausea and Vomiting Pharmacy Consult (Consult Rx Etoh Phenob Im/Po) 1 each MISCELLANE ONCE PRN; Protocol PRN Reason: Consult order Phenobarbital (Phenobarbital 15 Mg Tablet) 45 mg PO BID IJEOMA; Protocol Stop: 04/13/25 21:01 Last Admin: 04/12/25 10:26 Dose: 45 mg Phenobarbital (Phenobarbital 15 Mg Tablet) 15 mg PO BID IJEOMA; Protocol Stop: 04/15/25 21:01 Phenobarbital (Phenobarbital 15 Mg Tablet) 15 mg PO DAILY IJEOMA; Protocol Stop: 04/17/25 09:01 Pramipexole Dihydrochloride (Pramipexole Di-Hcl 0.25 Mg Tablet) 0.25 mg PO BEDTIME IJEOMA Prazosin HCl (Prazosin Hcl 1 Mg Capsule) 6 mg PO BEDTIME IJEOMA; Protocol Propranolol HCl (Propranolol Hcl 40 Mg Tablet) 40 mg PO BID IJEOMA; Protocol Quetiapine Fumarate (Quetiapine Fumarate 25 Mg Tablet) 25 mg PO TID PRN PRN Reason: Agitation Quetiapine Fumarate (Quetiapine Fumarate 50 Mg Tablet) 50 mg PO BEDTIME IJEOMA Quetiapine Fumarate (Quetiapine Fumarate 300 Mg Tablet) 300 mg PO BEDTIME IJEOMA Sertraline HCl (Sertraline Hcl 50 Mg Tablet) 150 mg PO DAILY [facility] Sodium Chloride (0.9 % Sodium Chloride Flush 3 Ml Syringe) 3 ml IVFLUSH QSHIFT [facility] Last Admin: 04/12/25 03:47 Dose: Not Given Trazodone HCl (Trazodone Hcl 50 Mg Tablet) 50 mg PO BEDTIME PRN PRN Reason: Insomnia Allergies Allergies Allergy/AdvReac Type Severity Reaction Status Date / Time Penicillins Allergy Intermediate HIVES Verified 04/11/25 12:53 Assessment & Plan Assessment & Plan (1) Opioid use disorder: Status: Acute Code(s): F11.90 - Opioid use, unspecified, uncomplicated Assessment and Plan: * plan was originally to continue methadone, until t/w found confirmation of recent buprenorphine script fill AFTER methadone dose administration. * will order methadone 10mg overnight PRN for withdrawal sx and revisit patients goals for continuation of MOUD. If she wishes to stay on buprenorphine, methadone will be d/c * need to obtain additional substance use and treatment history (2) Alcohol use disorder: Status: Acute Code(s): F10.90 - Alcohol use, unspecified, uncomplicated Assessment and Plan: * continue phenobarbital taper * thiamine and folic acid Total time managing care of this patient today __45__ minutes. PMFSH Past Medical History Medical History Umbilical hernia, incarcerated Alcohol use disorder Opioid use disorder Schizoaffective disorder, bipolar type Polysubstance use disorder Asthma PTSD (post-traumatic stress disorder) Recurrent major depression Social History Social History Household Members: None Housing: Other Housing Other:: mobile home Do you presently have visiting nurse or other home services: No Unable to assess alcohol history related to: Unknown Alcohol intake: current Alcohol intake frequency: a few times a week Patient Tobacco Use Status: Current everyday Tobacco user Tobacco use type: Cigarette Cigarette Packs Per Day: 2 Cigarettes Per Day: 40.0 Smoked in Last 30 Days: Yes e-Cigarette/Vaping Use: Currently Using Patient Interested in Nicotine Replacement: Yes Patient Given Instructions on How to Stop Smoking: No (refusied;; too ill) Second Hand Smoke Exposure: No Substance Use Type: Other Substance Use Frequency: Chronic Longstanding Last Used Substance: Days (ago) Currently Displaying Signs/Symptoms of Drug Intoxication Withdrawal: Yes Any prior treatment program specific to substance use: No Have you been hit, kicked, punched, or otherwise hurt by someone within the past year? If so, by whom?: No Do you feel safe in your current relationship?: No Current Relationship Is there a partner from a previous relationship who is making you feel unsafe now?: No Are you made to feel afraid or neglected: No Advance Directives: No Advance Directives Information Provided: No Do you have a plan to hurt others: No Plan Recently lost weight without trying: No How much weight loss: Unsure Eating poorly because of decreased appetite: No Nutrition screen score: 2 Nutrition Risks: Dental problems and Difficulty chewing Patient : No : No Poor oral hygiene: No service: No Sexual orientation: Straight/Heterosexual
[2025-04-12] MEDS: Nystatin Oral Susp 500,000 UNIT/5 ML ORAL.SUSP 400000 UNIT PO ×2 (15:11→22:29)
--- NOTE | 2025-04-12 15:16 | P.CNPS_ITS ---
History of Present Illness Date of Service: 04/12/25 Chief Complaint: Alcohol Withdrawal Reason for Consult: too many meds, please review. Requesting physician: Derik Bruno Discussed with referring provider: Yes Sources of Information: patient interviewed and chart reviewed HPI Narrative: Patient is a 44-year-old female with history of schizoaffective disorder, PTSD, opioid and alcohol use d/o who was admitted to medical floor for substance use and alcohol withdrawal. Psychiatric consult placed for: too many meds, please review. During psychiatric assessment, pt presents alert and oriented x3. calm and cooperative. patient reports after discharging from [facility] on 02/10/25, she went to another hospital and after being discharged, relapsed on substances. Patient reports she has not been medication compliant for the past few days. Reviewed psychiatric medications; pt stated she does not feel Prazosin, hydroxyzine or clonidine are helpful and would like D/C'd. However, she does find her other psychiatric medications helpful. Past Psychiatric History: hx of multiple inpatient psychiatric hospitalizations. Patient reports she does not have outpatient psychiatric providers at this time. Medical Evaluation Reviewed: Yes [facility] Medical History Umbilical hernia, incarcerated Alcohol use disorder Opioid use disorder Schizoaffective disorder, bipolar type Polysubstance use disorder Asthma PTSD (post-traumatic stress disorder) Recurrent major depression Family History: Mother: Schizoaffective disorder, bipolar type Social History: Pt lives in a trailer she owns. . no kids. disability. Anniversary of mom's in February Substance History: pt reports opioid, cocaine, marijuana and alcohol use. Trauma History: Severe an extensive trauma throughout lifetime, starting in childhood Diagnostics Vital Signs (24Hr): Vital Signs - 24 hr 04/11/25 15:23 04/11/25 16:42 04/11/25 17:52 Temperature 97.9 F Pulse Rate 113 H 104 H 100 Respiratory Rate 22 H 23 H 22 H Blood Pressure 133/88 130/82 133/78 Pulse Oximetry 99 99 Oxygen Delivery Method Room Air Room Air Room Air 04/11/25 21:31 04/11/25 23:37 04/12/25 03:49 Temperature 97.0 F 97.4 F 97.5 F Pulse Rate 75 70 85 Respiratory Rate 20 18 18 Blood Pressure 126/64 132/74 161/79 H Pulse Oximetry 100 96 96 Oxygen Delivery Method Room Air Room Air Room Air 04/12/25 06:24 04/12/25 11:19 Temperature 97.6 F Pulse Rate 97 Respiratory Rate 20 Blood Pressure 154/74 H 106/64 Pulse Oximetry 96 Oxygen Delivery Method Room Air BMI result Body Mass Index 35.7 Labs 04/11/25 12:51 04/11/25 12:51 Labs: Laboratory Results - last 48 hr 04/11/25 04/11/25 04/11/25 12:28 12:50 12:51 WBC 10.4 RBC 3.75 L Hgb 10.7 L Hct 31.9 L MCV 85.1 MCH 28.5 MCHC 33.5 RDW 14.1 Plt Count 276 D MPV 11.3 Immature Gran % (Auto) 0.3 Neut % (Auto) 78.2 H Lymph % (Auto) 11.1 L [place] % (Auto) 9.7 Eos % (Auto) 0.4 Baso % (Auto) 0.3 Lymph # (Auto) 1.2 [place] # (Auto) 1.0 Eos # (Auto) 0.0 Baso # (Auto) 0.0 Abs Immat Gran (auto) 0.03 Absolute Neuts (auto) 8.1 Absolute Nucleated RBC 0.000 Nucleated RBC % (auto) 0.0 ESR 30 H VBG pH VBG pCO2 VBG pO2 VBG HCO3 VBG O2 Saturation VBG Base Excess Sodium 139 Potassium 3.9 Chloride 103 Carbon Dioxide 23 Anion Gap 17 BUN 7 L Creatinine 0.54 Estim Creat Clear Calc 135.8 Estimated GFR > 60 Random Glucose 117 H Lactic Acid 1.8 Calcium 8.5 D Magnesium 1.8 Total Bilirubin 0.5 AST 175 H ALT 111 H Alkaline Phosphatase 93 C-Reactive Protein 8.33 H Total Protein 7.1 Albumin 4.0 Urine Color Urine Appearance Urine pH Ur Specific [place] Urine Protein Urine Glucose (UA) Urine Ketones Urine Blood Urine Nitrite Ur Leukocyte Esterase Urine RBC Urine WBC Ur Squamous Epith Cells Urine Bacteria Hyaline Casts Urine Opiates Screen Ur Buprenorphine Scrn Ur Oxycodone Screen Urine Methadone Screen Urine Fentanyl Screen Ur Barbiturates Screen Ur Phencyclidine Scrn Ur Amphetamines Screen U Benzodiazepines Scrn Urine Cocaine Screen U Marijuana (THC) Screen Influenza Type A (PCR) NEGATIVE Influenza Type B (PCR) NEGATIVE RSV RNA Qual (PCR) NEGATIVE SARS-CoV-2 RNA (RT-PCR) NEGATIVE 04/11/25 04/11/25 13:00 14:48 WBC RBC Hgb Hct MCV MCH MCHC RDW Plt Count MPV Immature Gran % (Auto) Neut % (Auto) Lymph % (Auto) [place] % (Auto) Eos % (Auto) Baso % (Auto) Lymph # (Auto) [place] # (Auto) Eos # (Auto) Baso # (Auto) Abs Immat Gran (auto) Absolute Neuts (auto) Absolute Nucleated RBC Nucleated RBC % (auto) ESR VBG pH 7.53 H VBG pCO2 31 VBG pO2 76 VBG HCO3 27 H VBG O2 Saturation 97.0 VBG Base Excess 4.9 Sodium Potassium Chloride Carbon Dioxide Anion Gap BUN Creatinine Estim Creat Clear Calc Estimated GFR Random Glucose Lactic Acid Calcium Magnesium Total Bilirubin AST ALT Alkaline Phosphatase C-Reactive Protein Total Protein Albumin Urine Color Yellow Urine Appearance Cloudy Urine pH 6.0 Ur Specific [place] 1.015 Urine Protein 30 (1+) H Urine Glucose (UA) Negative Urine Ketones 15 Urine Blood Large (3+) H Urine Nitrite Negative Ur Leukocyte Esterase Trace H Urine RBC 6-10 H Urine WBC 6-10 H Ur Squamous Epith Cells >20 Urine Bacteria 4+ Hyaline Casts 0-2 Urine Opiates Screen Not Detected Ur Buprenorphine Scrn Positive H Ur Oxycodone Screen Not Detected Urine Methadone Screen Not Detected Urine Fentanyl Screen POSITIVE H Ur Barbiturates Screen Not Detected Ur Phencyclidine Scrn Not Detected Ur Amphetamines Screen Not Detected U Benzodiazepines Scrn POSITIVE H Urine Cocaine Screen POSITIVE H U Marijuana (THC) Screen POSITIVE H Influenza Type A (PCR) Influenza Type B (PCR) RSV RNA Qual (PCR) SARS-CoV-2 RNA (RT-PCR) Mental Status Exam Mental Status Exam Patient Appearance: Appropriate Patient Orientation: Person, Place, Time and Situation Level of Consciousness: Awake Patient Behavior: Appropriate, Cooperative and Good Eye Contact Mood Description: Calm Affect Description: Calm Ability to Follow Directions: Good Speech Pattern: Clear Memory Description: Intact Hallucinations: None Delusions: Not Present Thought Process: Intact Thought Content: positive for Intact Medications Medications Current Medications Acetaminophen (Acetaminophen 325 Mg Tablet) 650 mg PO Q6H PRN PRN Reason: Pain, Mild 1-3,fever,headache Al Hydroxide/Mg Hydroxide (Magnesium Hydrox/Alum Hydrox 30 Ml Oral.Susp) 30 ml PO Q4H PRN PRN Reason: Heartburn Albuterol Sulfate (Albuterol Sulfate 90 Mcg 8 Gm Inhaler) 2 puff INHALE Q6H PRN PRN Reason: Wheezing Calcium Carbonate (Calcium Carbonate 750 Mg Tab.Chew) 750 mg PO Q4H PRN PRN Reason: Heartburn Chlorpromazine HCl (Chlorpromazine Hcl 100 Mg Tablet) 100 mg PO BID PRN PRN Reason: severe anxiety Clonazepam (Clonazepam 0.5 Mg Tablet) 0.5 mg PO TID PRN PRN Reason: anxiety/restlessness Clonidine HCl (Clonidine Hcl 0.1 Mg Tablet) 0.1 mg PO Q8H PRN; Protocol PRN Reason: Opiate Withdrawal Clonidine HCl (Clonidine Hcl 0.1 Mg Tablet) 0.1 mg PO Q4H PRN; Protocol PRN Reason: moderate anxiety Doxepin HCl (Doxepin Hcl 10 Mg Capsule) 20 mg PO BEDTIME IJEOMA Hydroxyzine HCl (Hydroxyzine Hcl 25 Mg Tablet) 25 mg PO Q6H PRN PRN Reason: anxiety/restlessness Last Admin: 04/12/25 10:26 Dose: 25 mg Lactated Ringer's (Lr) 1,000 mls @ 125 mls/hr IVCONT .Q8H [facility] Last Admin: 04/12/25 03:46 Dose: 125 mls/hr Folic Acid 1 mg/ Sodium (Chloride) 50.2 mls @ 100.4 mls/hr IV DAILY [facility] Last Infusion: 04/11/25 19:47 Dose: Infused Thiamine HCl 100 mg/ Sodium (Chloride) 101 mls @ 202 mls/hr IV DAILY [facility] Last Admin: 04/12/25 10:28 Dose: 202 mls/hr Magnesium Hydroxide (Milk Of Magnesia 30 Ml Oral.Susp) 30 ml PO DAILY PRN PRN Reason: Constipation Melatonin (Melatonin 3 Mg Tablet) 6 mg PO BEDTIME PRN PRN Reason: Insomnia Nystatin (Nystatin Oral Susp 500,000 Unit/5 Ml Oral.Susp) 400,000 unit PO QID [facility]; Protocol Ondansetron HCl (Ondansetron Hcl 4 Mg/2 Ml Vial) 4 mg IVPUSH Q8H PRN PRN Reason: Nausea and Vomiting Pharmacy Consult (Consult Rx Etoh Phenob Im/Po) 1 each MISCELLANE ONCE PRN; Protocol PRN Reason: Consult order Phenobarbital (Phenobarbital 15 Mg Tablet) 45 mg PO BID IJEOMA; Protocol Stop: 04/13/25 21:01 Last Admin: 04/12/25 10:26 Dose: 45 mg Phenobarbital (Phenobarbital 15 Mg Tablet) 15 mg PO BID IJEOMA; Protocol Stop: 04/15/25 21:01 Phenobarbital (Phenobarbital 15 Mg Tablet) 15 mg PO DAILY IJEOMA; Protocol Stop: 04/17/25 09:01 Pramipexole Dihydrochloride (Pramipexole Di-Hcl 0.25 Mg Tablet) 0.25 mg PO BEDTIME IJEOMA Prazosin HCl (Prazosin Hcl 1 Mg Capsule) 6 mg PO BEDTIME IJEOMA; Protocol Propranolol HCl (Propranolol Hcl 40 Mg Tablet) 40 mg PO BID IJEOMA; Protocol Quetiapine Fumarate (Quetiapine Fumarate 25 Mg Tablet) 25 mg PO TID PRN PRN Reason: Agitation Quetiapine Fumarate (Quetiapine Fumarate 50 Mg Tablet) 50 mg PO BEDTIME IJEOMA Quetiapine Fumarate (Quetiapine Fumarate 300 Mg Tablet) 300 mg PO BEDTIME IJEOMA Sertraline HCl (Sertraline Hcl 50 Mg Tablet) 150 mg PO DAILY IJEOMA Sodium Chloride (0.9 % Sodium Chloride Flush 3 Ml Syringe) 3 ml IVFLUSH QSHIFT [facility] Last Admin: 04/12/25 03:47 Dose: Not Given Trazodone HCl (Trazodone Hcl 50 Mg Tablet) 50 mg PO BEDTIME PRN PRN Reason: Insomnia Allergies Allergies Allergy/AdvReac Type Severity Reaction Status Date / Time Penicillins Allergy Intermediate HIVES Verified 04/11/25 12:53 Assessment & Plan Assessment & Plan (1) Schizoaffective disorder, bipolar type: Status: Acute Code(s): F25.0 - Schizoaffective disorder, bipolar type (2) Encounter for medication adjustment: Status: Acute Code(s): Z51.89 - Encounter for other specified aftercare Plan Recommendations: -DC clonidine -DC hydroxyzine -DC prazosin -DC Seroquel 25mg TID PRN -continue remaining psychiatric medications Total time managing care of this patient today _30___ minutes. Patient educated on: diagnosis and medication risk/benefits
[2025-04-12 15:48] VITALS: BP 115/60; PULSE 81; RESP 18; TEMP 36.4; O2SAT 97
[2025-04-12 20:00] VITALS: BP 108/63; PULSE 60; RESP 20; TEMP 36.2; O2SAT 98
[2025-04-12 21:00] VITALS: PULSE 65
[2025-04-13] VITALS (8 sets, daily range): BP systolic 109–131; BP diastolic 55–68; PULSE 59–76; RESP 16–18; TEMP 36.3–36.9; O2SAT 95–98
[2025-04-13] MEDS: Lactated Ringers 1,000 ML 125 ML IVCONT (07:31)
[2025-04-13] MEDS: Nystatin Oral Susp 500,000 UNIT/5 ML ORAL.SUSP 400000 UNIT PO ×2 (09:26→20:18)
[2025-04-13] MEDS: methADONE HCl 20 MG/2 ML ORAL.CONC 30 MG PO (09:36)
[2025-04-13] MEDS: Thiamine HCL 100 MG in 0.9 % Sodium Chloride 100 ML 202 MG IV (10:45)
--- NOTE | 2025-04-13 11:01 | P.PNIM_ITS ---
Subjective Subjective Date of Service: 04/13/25 Interval History: Reports feeling better than yesterday, sublingual pain improving, tolerating diet without difficulty. Reports feeling a sense of withdrawal but is comfortable at present. Physical Exam 2 Vital Signs: Vital Signs: Last Vital Signs Temp 97.5 F 04/13/25 07:32 Pulse 59 04/13/25 07:32 Resp 18 04/13/25 07:32 BP 110/64 04/13/25 07:32 Pulse Ox 96 04/13/25 07:32 O2 Del Method Room Air 04/13/25 07:32 BMI result Body Mass Index 35.7 Const: Orientation/consciousness: patient oriented x3 Resp: Effort & Inspection: normal respiratory effort and able to speak in complete sentences Auscultation: clear to auscultation bilaterally Cardio: Jugular venous distension: no JVD Rate: regular rate Rhythm: r egular rhythm GI: Auscultation: normal bowel sounds Skin: Other: whitish sublingual sore, no other sores noted Neuro: General: patient oriented x3, moves all extremities, no focal motor deficits and CN's II-XI intact bilaterally Psych: Affect: Indifferent affect present Attitude: cooperative Objective Data Active Medications Acetaminophen (Acetaminophen 325 Mg Tablet) 650 mg PO Q6H PRN PRN Reason: Pain, Mild 1-3,fever,headache Al Hydroxide/Mg Hydroxide (Magnesium Hydrox/Alum Hydrox 30 Ml Oral.Susp) 30 ml PO Q4H PRN PRN Reason: Heartburn Albuterol Sulfate (Albuterol Sulfate 90 Mcg 8 Gm Inhaler) 2 puff INHALE Q6H PRN PRN Reason: Wheezing Calcium Carbonate (Calcium Carbonate 750 Mg Tab.Chew) 750 mg PO Q4H PRN PRN Reason: Heartburn Chlorpromazine HCl (Chlorpromazine Hcl 100 Mg Tablet) 100 mg PO BID PRN PRN Reason: severe anxiety Clonazepam (Clonazepam 0.5 Mg Tablet) 0.5 mg PO TID PRN PRN Reason: anxiety/restlessness Doxepin HCl (Doxepin Hcl 10 Mg Capsule) 20 mg PO BEDTIME [facility] Last Admin: 04/12/25 22:21 Dose: 20 mg Documented By: ABI Lactated Ringer's (Lr) 1,000 mls @ 125 mls/hr IVCONT .Q8H [facility] Last Admin: 04/13/25 07:31 Dose: 125 mls/hr Documented By: ALVARO Folic Acid 1 mg/ Sodium (Chloride) 50.2 mls @ 100.4 mls/hr IV DAILY [facility] Last Infusion: 04/13/25 10:00 Dose: Infused Documented By: ALVARO Thiamine HCl 100 mg/ Sodium (Chloride) 101 mls @ 202 mls/hr IV DAILY [facility] Last Admin: 04/13/25 10:45 Dose: 202 mls/hr Documented By: ALVARO Magnesium Hydroxide (Milk Of Magnesia 30 Ml Oral.Susp) 30 ml PO DAILY PRN PRN Reason: Constipation Melatonin (Melatonin 3 Mg Tablet) 6 mg PO BEDTIME PRN PRN Reason: Insomnia Methadone HCl (Methadone Hcl 20 Mg/2 Ml Oral.Conc) 10 mg PO DAILY PRN PRN Reason: Opiate Withdrawal Nystatin (Nystatin Oral Susp 500,000 Unit/5 Ml Oral.Susp) 400,000 unit PO QID [facility]; Protocol Last Admin: 04/13/25 09:26 Dose: 400,000 unit Documented By: ALVARO Ondansetron HCl (Ondansetron Hcl 4 Mg/2 Ml Vial) 4 mg IVPUSH Q8H PRN PRN Reason: Nausea and Vomiting Pharmacy Consult (Consult Rx Etoh Phenob Im/Po) 1 each MISCELLANE ONCE PRN; Protocol PRN Reason: Consult order Phenobarbital (Phenobarbital 15 Mg Tablet) 45 mg PO BID [facility]; Protocol Stop: 04/13/25 21:01 Last Admin: 04/13/25 09:27 Dose: 45 mg Documented By: ALVARO Phenobarbital (Phenobarbital 15 Mg Tablet) 15 mg PO BID [facility]; Protocol Stop: 04/15/25 21:01 Phenobarbital (Phenobarbital 15 Mg Tablet) 15 mg PO DAILY [facility]; Protocol Stop: 04/17/25 09:01 Pramipexole Dihydrochloride (Pramipexole Di-Hcl 0.25 Mg Tablet) 0.25 mg PO BEDTIME [facility] Last Admin: 04/12/25 22:23 Dose: 0.25 mg Documented By: ABI Propranolol HCl (Propranolol Hcl 40 Mg Tablet) 40 mg PO BID [facility]; Protocol Last Admin: 04/13/25 09:30 Dose: 40 mg Documented By: ALVARO Quetiapine Fumarate (Quetiapine Fumarate 50 Mg Tablet) 50 mg PO BEDTIME [facility] Last Admin: 04/12/25 22:23 Dose: 50 mg Documented By: ABI Quetiapine Fumarate (Quetiapine Fumarate 300 Mg Tablet) 300 mg PO BEDTIME [facility] Last Admin: 04/12/25 22:23 Dose: 300 mg Documented By: ABI Sertraline HCl (Sertraline Hcl 50 Mg Tablet) 150 mg PO DAILY [facility] Last Admin: 04/13/25 09:27 Dose: 150 mg Documented By: ALVARO Sodium Chloride (0.9 % Sodium Chloride Flush 3 Ml Syringe) 3 ml IVFLUSH QSHIFT [facility] Last Admin: 04/13/25 09:45 Dose: Not Given Documented By: ALVARO Non-Admin Reason: IV Running Trazodone HCl (Trazodone Hcl 50 Mg Tablet) 50 mg PO BEDTIME PRN PRN Reason: Insomnia Labs 04/11/25 12:51 04/11/25 12:51 Microbiology Microbiology Results: Microbiology 04/11/25 Unknown Urine Culture - Final Urine clean catch - Clean Catch Midstream 04/11/25 12:50 Blood Culture - Preliminary Blood - Venous No growth after 24 hours. 04/11/25 12:50 Blood Culture - Preliminary Blood - Venous No growth after 24 hours. Assessment and Plan (1) Alcohol use disorder: Status: Acute (2) Alcohol withdrawal: Status: Acute Plan Plan 44-year-old female with a past medical history of IV drug abuse, history of schizoaffective disorder, bipolar type, severe PTSD, opioid and alcohol abuse, frequent Psychiatric hospitalization. Here with symptoms of withdrawal from substance and alcohol use and a sublingual sore. Withdrawal suspected from drugs (Urine tox positive for Buprenorphine, Fentanyl, benzodiazepines, cocaine, and Marijuana (THC) , and Alcohol withdrawal as well--overall improving continue Phenobarbital Monitor CIWA and COWs Clonidine and Hydroxyzine to help with symptom IVF, thiamine, and folic replacement Addiction med consulted No indication higher level of care H/o mental illness/Schizophrenia/Depression/PTSD, she is on a alot of meds, unclear of compliance Psych consulted on med regimen, reccs as follows: -DC clonidine -DC hydroxyzine -DC prazosin -DC Seroquel 25mg TID PRN -continue remaining psychiatric medications Low grade temp of 100, resolved, cultures negative Whitish sore under the tongue, none on tongue or throat, see pic using Nystatin, shows some improvement today- if doesn't resolve may need Bx on outpatieent bais DVT prophylaxis: lovenox ull code anticipated dc tomorrow Quality Stroke Does the patient have a stroke diagnosis?: No VTE Prior VTE?: No VTE Risk Level:: Medical - moderate - high VTE Device Contraindication: Treatment Not Indicated VTE Drug Contraindication: N/A - Med Ordered
--- NOTE | 2025-04-13 11:08 | HO.ADDICTPRO ---
Subjective Subjective Date of Service: 04/13/25 Reason For Visit: Alcohol Withdrawal Interim History: Patient seen in follow up fpr AUD and OUD She is awake, alert, engaged in interview. Discussed Suboxone rx, and patients states she was started on Suboxone while inpatient in [place], however she does not want to remain on Suboxone, I don't like the way it makes me feel . She says she prefers methadone. T/W asked patient if she was aware that she has several medications at [facility] waiting for her. She reported that she was aware, but she is unable to get to [facility], states her regular pharmacy is [facility] in [place]--they were sent to [facility] because she was supposed to be admitted to the [facility] in [facility] and that is the pharmacy that program uses. She says she went to her apt instead of the [facility]. Has been using btwn 5 bags up to a bundle daily IV. Methadone 30mg administered yesterday with positive effect, and patient slept the remainder of the day and evening. Today, she is reporting mild withdrawal sx today (much improved appearance from eval yesterday) and would like to continue methadone No tremor noted, no diaphoresis, poor eye contact. Requesting OTP referral be sent to [facility]. Review of Systems Acute medical concerns: Yes Review of Systems Constitutional: Reports as per HPI Mental Status Exam Mental Status Exam Patient Appearance: Appropriate Level of Consciousness: Awake, Appropriate and Alert Patient Behavior: Appropriate and Cooperative Affect Description: Appropriate and Blunted Speech Pattern: Clear Thought Content: positive for Intact Diagnostics Vital Signs (24Hr): Vital Signs - 24 hr 04/12/25 11:19 04/12/25 15:48 04/12/25 20:00 Temperature 97.6 F 97.6 F 97.2 F Pulse Rate 97 81 60 Respiratory Rate 20 18 20 Blood Pressure 106/64 115/60 108/63 Pulse Oximetry 96 97 98 Oxygen Delivery Method Room Air Room Air Room Air 04/13/25 00:00 04/13/25 03:42 04/13/25 07:32 Temperature 97.8 F 97.6 F 97.5 F Pulse Rate 70 68 59 Respiratory Rate 16 16 18 Blood Pressure 116/58 L 109/63 110/64 Pulse Oximetry 96 95 96 Oxygen Delivery Method Room Air Room Air Room Air BMI result Body Mass Index 35.7 Labs 04/11/25 12:51 07/06/25 12:51 Labs: Laboratory Results - last 48 hr 04/11/25 04/11/25 04/11/25 12:28 12:50 12:51 WBC 10.4 RBC 3.75 L Hgb 10.7 L Hct 31.9 L MCV 85.1 MCH 28.5 MCHC 33.5 RDW 14.1 Plt Count 276 D MPV 11.3 Immature Gran % (Auto) 0.3 Neut % (Auto) 78.2 H Lymph % (Auto) 11.1 L [place] % (Auto) 9.7 Eos % (Auto) 0.4 Baso % (Auto) 0.3 Lymph # (Auto) 1.2 [place] # (Auto) 1.0 Eos # (Auto) 0.0 Baso # (Auto) 0.0 Abs Immat Gran (auto) 0.03 Absolute Neuts (auto) 8.1 Absolute Nucleated RBC 0.000 Nucleated RBC % (auto) 0.0 ESR 30 H VBG pH VBG pCO2 VBG pO2 VBG HCO3 VBG O2 Saturation VBG Base Excess Sodium 139 Potassium 3.9 Chloride 103 Carbon Dioxide 23 Anion Gap 17 BUN 7 L Creatinine 0.54 Estim Creat Clear Calc 135.8 Estimated GFR > 60 Random Glucose 117 H Lactic Acid 1.8 Calcium 8.5 D Magnesium 1.8 Total Bilirubin 0.5 AST 175 H ALT 111 H Alkaline Phosphatase 93 C-Reactive Protein 8.33 H Total Protein 7.1 Albumin 4.0 Urine Color Urine Appearance Urine pH Ur Specific [place] Urine Protein Urine Glucose (UA) Urine Ketones Urine Blood Urine Nitrite Ur Leukocyte Esterase Urine RBC Urine WBC Ur Squamous Epith Cells Urine Bacteria Hyaline Casts Urine Opiates Screen Ur Buprenorphine Scrn Ur Oxycodone Screen Urine Methadone Screen Urine Fentanyl Screen Ur Barbiturates Screen Ur Phencyclidine Scrn Ur Amphetamines Screen U Benzodiazepines Scrn Urine Cocaine Screen U Marijuana (THC) Screen Influenza Type A (PCR) NEGATIVE Influenza Type B (PCR) NEGATIVE RSV RNA Qual (PCR) NEGATIVE SARS-CoV-2 RNA (RT-PCR) NEGATIVE 04/11/25 04/11/25 13:00 14:48 WBC RBC Hgb Hct MCV MCH MCHC RDW Plt Count MPV Immature Gran % (Auto) Neut % (Auto) Lymph % (Auto) [place] % (Auto) Eos % (Auto) Baso % (Auto) Lymph # (Auto) [place] # (Auto) Eos # (Auto) Baso # (Auto) Abs Immat Gran (auto) Absolute Neuts (auto) Absolute Nucleated RBC Nucleated RBC % (auto) ESR VBG pH 7.53 H VBG pCO2 31 VBG pO2 76 VBG HCO3 27 H VBG O2 Saturation 97.0 VBG Base Excess 4.9 Sodium Potassium Chloride Carbon Dioxide Anion Gap BUN Creatinine Estim Creat Clear Calc Estimated GFR Random Glucose Lactic Acid Calcium Magnesium Total Bilirubin AST ALT Alkaline Phosphatase C-Reactive Protein Total Protein Albumin Urine Color Yellow Urine Appearance Cloudy Urine pH 6.0 Ur Specific [place] 1.015 Urine Protein 30 (1+) H Urine Glucose (UA) Negative Urine Ketones 15 Urine Blood Large (3+) H Urine Nitrite Negative Ur Leukocyte Esterase Trace H Urine RBC 6-10 H Urine WBC 6-10 H Ur Squamous Epith Cells >20 Urine Bacteria 4+ Hyaline Casts 0-2 Urine Opiates Screen Not Detected Ur Buprenorphine Scrn Positive H Ur Oxycodone Screen Not Detected Urine Methadone Screen Not Detected Urine Fentanyl Screen POSITIVE H Ur Barbiturates Screen Not Detected Ur Phencyclidine Scrn Not Detected Ur Amphetamines Screen Not Detected U Benzodiazepines Scrn POSITIVE H Urine Cocaine Screen POSITIVE H U Marijuana (THC) Screen POSITIVE H Influenza Type A (PCR) Influenza Type B (PCR) RSV RNA Qual (PCR) SARS-CoV-2 RNA (RT-PCR) Medications Medications Current Medications Acetaminophen (Acetaminophen 325 Mg Tablet) 650 mg PO Q6H PRN PRN Reason: Pain, Mild 1-3,fever,headache Al Hydroxide/Mg Hydroxide (Magnesium Hydrox/Alum Hydrox 30 Ml Oral.Susp) 30 ml PO Q4H PRN PRN Reason: Heartburn Albuterol Sulfate (Albuterol Sulfate 90 Mcg 8 Gm Inhaler) 2 puff INHALE Q6H PRN PRN Reason: Wheezing Calcium Carbonate (Calcium Carbonate 750 Mg Tab.Chew) 750 mg PO Q4H PRN PRN Reason: Heartburn Chlorpromazine HCl (Chlorpromazine Hcl 100 Mg Tablet) 100 mg PO BID PRN PRN Reason: severe anxiety Clonazepam (Clonazepam 0.5 Mg Tablet) 0.5 mg PO TID PRN PRN Reason: anxiety/restlessness Doxepin HCl (Doxepin Hcl 10 Mg Capsule) 20 mg PO BEDTIME [facility] Last Admin: 04/12/25 22:21 Dose: 20 mg Lactated Ringer's (Lr) 1,000 mls @ 125 mls/hr IVCONT .Q8H [facility] Last Admin: 04/13/25 07:31 Dose: 125 mls/hr Folic Acid 1 mg/ Sodium (Chloride) 50.2 mls @ 100.4 mls/hr IV DAILY [facility] Last Infusion: 04/13/25 10:00 Dose: Infused Thiamine HCl 100 mg/ Sodium (Chloride) 101 mls @ 202 mls/hr IV DAILY [facility] Last Admin: 04/13/25 10:45 Dose: 202 mls/hr Magnesium Hydroxide (Milk Of Magnesia 30 Ml Oral.Susp) 30 ml PO DAILY PRN PRN Reason: Constipation Melatonin (Melatonin 3 Mg Tablet) 6 mg PO BEDTIME PRN PRN Reason: Insomnia Methadone HCl (Methadone Hcl 20 Mg/2 Ml Oral.Conc) 10 mg PO DAILY PRN PRN Reason: Opiate Withdrawal Nystatin (Nystatin Oral Susp 500,000 Unit/5 Ml Oral.Susp) 400,000 unit PO QID [facility]; Protocol Last Admin: 04/13/25 09:26 Dose: 400,000 unit Ondansetron HCl (Ondansetron Hcl 4 Mg/2 Ml Vial) 4 mg IVPUSH Q8H PRN PRN Reason: Nausea and Vomiting Pharmacy Consult (Consult Rx Etoh Phenob Im/Po) 1 each MISCELLANE ONCE PRN; Protocol PRN Reason: Consult order Phenobarbital (Phenobarbital 15 Mg Tablet) 45 mg PO BID [facility]; Protocol Stop: 04/13/25 21:01 Last Admin: 04/13/25 09:27 Dose: 45 mg Phenobarbital (Phenobarbital 15 Mg Tablet) 15 mg PO BID [facility]; Protocol Stop: 04/15/25 21:01 Phenobarbital (Phenobarbital 15 Mg Tablet) 15 mg PO DAILY [facility]; Protocol Stop: 04/17/25 09:01 Pramipexole Dihydrochloride (Pramipexole Di-Hcl 0.25 Mg Tablet) 0.25 mg PO BEDTIME [facility] Last Admin: 04/12/25 22:23 Dose: 0.25 mg Propranolol HCl (Propranolol Hcl 40 Mg Tablet) 40 mg PO BID [facility]; Protocol Last Admin: 04/13/25 09:30 Dose: 40 mg Quetiapine Fumarate (Quetiapine Fumarate 50 Mg Tablet) 50 mg PO BEDTIME [facility] Last Admin: 04/12/25 22:23 Dose: 50 mg Quetiapine Fumarate (Quetiapine Fumarate 300 Mg Tablet) 300 mg PO BEDTIME [facility] Last Admin: 04/12/25 22:23 Dose: 300 mg Sertraline HCl (Sertraline Hcl 50 Mg Tablet) 150 mg PO DAILY [facility] Last Admin: 04/13/25 09:27 Dose: 150 mg Sodium Chloride (0.9 % Sodium Chloride Flush 3 Ml Syringe) 3 ml IVFLUSH QSHIFT [facility] Last Admin: 04/13/25 09:45 Dose: Not Given Trazodone HCl (Trazodone Hcl 50 Mg Tablet) 50 mg PO BEDTIME PRN PRN Reason: Insomnia Allergies Allergies Allergy/AdvReac Type Severity Reaction Status Date / Time Penicillins Allergy Intermediate HIVES Verified 04/11/25 12:53 Assessment & Plan Assessment & Plan (1) Opioid use disorder: Status: Acute Code(s): F11.90 - Opioid use, unspecified, uncomplicated Assessment and Plan: would like to continue methadone and NOT buprenorphine (Suboxone) methadone 30mg ordered--will re-eval later this afternoon as yesterday she slept the remainder of the day following med administration. Will titrate dose as tolerated machine rigger to send referral to [facility] as requested by patient Total time managing care of this patient today ___30_ minutes.
--- NOTE | 2025-04-13 14:02 | P.DS_ITS ---
DS: Providers Provider Date of Service: 04/14/25 Date of admission: 04/11/25 14:33 Date of discharge: 04/14/25 Primary care physician: None Physician Consults: 04/11/25 15:09 Addiction Medicine Provider Routine Consulting Provider: Addiction Covering Reason for consultation: substance and alcohol use disorder 04/12/25 11:47 Consult to Psychiatry Routine Consulting [place] [facility] [place] Reason for consultation: Too many mes, please reveiw 04/13/25 09:05 Inpt - Recovery Team Routine Comment: Reason for consultation: MARCOS eval DS: Diagnosis Discharge Diagnosis (1) Opioid use disorder: Status: Acute (2) Schizoaffective disorder, bipolar type: Status: Acute (3) Alcohol use disorder: Status: Acute DS: Summary Hospital Course Hospital Course: admission HPI: Chief Complaint: Altered mental status 44-year-old female with a past medical history of IV drug abuse, history of schizoaffective disorder, bipolar type, severe PTSD, opioid and alcohol abuse, frequent Psychiatric hospitalization. Patient to the Ed in a restless stated, constantly moving, and reportedly has been using subtance in cluding alcohol and heroin, and last use yesterday. There is a low grade temp of 100, initially tachy, wbc is 10, ESR 30, because of low grade, she's given Vancomycin and Ceft riaxone and there is no obviou source of infection. She's also given phenobarbital for alcohol withdrawal. Concern is more opioid withdrawal or withdrawal from other illicit substances. Hospital course: 44-year-old female with a past medical history of IV drug abuse, history of schizoaffective disorder, bipolar type, severe PTSD, opioid and alcohol abuse, frequent Psychiatric hospitalization. On arrival she was severely restless and agitated, likely related to poly-substance and alcohol use disorder. Withdrawal was managed with monitoring of CIWA, COWs and Phenobartbitol protocol, clonidine and was seen by addiction med restarted on methadone. Her withdrawal symptoms have resolved and is doing much better, she is advised to avoid ilicit substances and to continue methadone. Withdrawal suspected from drugs (Urine tox positive for Buprenorphine, Fentanyl, benzodiazepines, cocaine, and Marijuana (THC) , and Alcohol withdrawal as well--overall improving with phenobarbital , and monitoring of CIWA and COWS. IVF, thiamin and folate. She presently does not have any symptoms of withdrwaal. She has been initiated on Methadone by addiction and will be followed on outpatient basis H/o mental illness/Schizophrenia/Depression/PTSD, she is on a alot of meds, unclear of compliance Psych consulted on med regimen, reccs as follows: -DC clonidine -DC hydroxyzine -DC prazosin -DC Seroquel 25mg TID PRN -continue remaining psychiatric medications Low grade temp of 100, resolved, cultures negative Whitish sore under the tongue, none on tongue or throat, see pic using Nystatin, shows some improvement today- if doesn't resolve may need Bx on outpatieent bais Low grade temp resolved, no leukocytosis. Blood cultures have been negative Whitish sore under the tongue- improved with use of Nystatin, will need Biopsy if not improved with Nystatin DVT prophylaxis: lovenox full code Physical Exam Vital Signs: Vital Signs: Last Vital Signs Temp 97.5 F 04/13/25 11:07 Pulse 75 04/13/25 11:07 Resp 16 04/13/25 11:07 BP 116/68 04/13/25 11:07 Pulse Ox 97 04/13/25 11:07 O2 Del Method Room Air 04/13/25 11:07 BMI result Body Mass Index 35.7 Const: Orientation/consciousness: patient oriented x3 Resp: Effort & Inspection: normal respiratory effort and able to speak in complete sentences Auscultation: clear to auscultation bilaterally and di minished lung sounds (bases) Cardio: Jugular venous distension: no JVD Rate: regular rate Rhythm: regular rhythm Peripheral pulses: Peripheral pulses 2+ throughout GI: Inspection: Yes normal to inspection Auscultation: normal bowel sounds Neuro: General: patient oriented x3, moves all extremities, no focal motor deficits and CN's II-XI intact bilaterally Extrem: General: Yes full ROM Psych: Mental Status: mental status grossly normal Attitude: cooperative Thought process: Normal thought process present DS: Data Data Completed and Pending Completed studies during hospitalization [Text1]: Procedures Drainage of Left Lower Arm Skin, External Approach (01/08/21) Labs on day of discharge: Preliminary micro results at discharge 04/11/25 12:50 Blood Culture - Preliminary Blood - Venous No growth after 24 hours. 04/11/25 12:50 Blood Culture - Preliminary Blood - Venous No growth after 24 hours. Discharge Plan Discharge Patient Disposition: Home, Self-Care Discharge Diagnosis: Alcohol and substance withdrawal Referrals: [facility] [Provider Group] - 04/15/25 8:00 am Referral Note: Please bring your last dose letter with you. Physician,None [Primary Care Provider, Medical] - 1 Week Discharge Medications: No Action (DME) abdominal binder Kit See Rx Instructions .Route Qty: 1 0RF Rx Instructions: wrap around abdomen as needed prazosin 2 mg capsule 6 mg PO BEDTIME 30 Days Qty: 90 1RF acetaminophen 325 mg Tablet 650 mg PO Q6H PRN (Reason: Headache/Pain, Scale 1-10) Qty: 0 0RF doxepin 10 mg Capsule 20 mg PO BEDTIME 30 Days Qty: 60 1RF methadone [Methadose] 10 mg/mL Concentrate 50 mg PO DAILY@0800 Qty: 0 0RF Rx Instructions: Partial Fill upon patient request. pramipexole 0.25 mg Tablet 0.25 mg PO BEDTIME 30 Days Qty: 30 1RF quetiapine 300 mg Tablet 300 mg PO BEDTIME 30 Days Qty: 30 1RF quetiapine 50 mg Tablet 50 mg PO BEDTIME 30 Days Qty: 30 1RF Rx Instructions: take with 300mg tab sertraline 50 mg Tablet 150 mg PO DAILY 30 Days Qty: 90 1RF trazodone 50 mg Tablet 50 mg PO BEDTIME PRN (Reason: insomnia) 30 Days Qty: 30 1RF clonazepam 0.5 mg Tablet 0.5 mg PO TID 30 Days Qty: 90 1RF albuterol sulfate 90 mcg/actuation HFA aerosol inhaler 2 puff INHALATION Q6H PRN (Reason: wheezing) Qty: 1 1RF (DME) abdominal binder Kit See Rx Instructions .Route Qty: 1 0RF Rx Instructions: As directed: use on abdomen as needed clonidine HCl 0.1 mg tablet 0.1 mg PO BEDTIME PRN (Reason: Anxiety) propranolol 40 mg tablet 40 mg PO BID buprenorphine-naloxone 4-1 mg film 1 film sublingual TID clonidine HCl 0.1 mg tablet 0.1 mg PO Q4H PRN (Reason: moderate anxiety) chlorpromazine 100 mg tablet 100 mg PO BID PRN (Reason: severe anxiety) quetiapine 25 mg tablet 25 mg PO TID PRN (Reason: Agitation) cyclobenzaprine 10 mg tablet 10 mg PO TID PRN (Reason: muscle spasms) hydroxyzine pamoate 50 mg capsule 50 mg PO QID PRN (Reason: mild Anxiety) melatonin 3 mg Tablet 3 mg PO BEDTIME PRN (Reason: Insomnia) Rx Instructions: may repeat x1 Stand Alone Forms: Patient Portal Discharge page Print Language: Martiniquais Care Plan Goals: Resolution of acute withdrawal of alcohol and substances, Resolution of acute aggitation Health Concerns: Alcohol use disorder Substance use disorder Schizoaffective disorder Plan of Treatment: Follow medication changes amde by psych Follow up with psych providers outpatient Avoid substance and alcohol abuse Assessment: as above
[2025-04-13] MEDS: methADONE HCl 20 MG/2 ML ORAL.CONC 10 MG PO (15:20)
[2025-04-13] MEDS: 0.9 % Sodium Chloride Flush 3 ML SYRINGE IVFLUSH (20:17)
[2025-04-14 03:14] VITALS: BP 137/65; PULSE 57; RESP 16; TEMP 36.8; O2SAT 95
[2025-04-14 07:05] VITALS: BP 140/65; PULSE 59; RESP 16; TEMP 36.6; O2SAT 98
[2025-04-14] MEDS: methADONE HCl 20 MG/2 ML ORAL.CONC 40 MG PO (08:52)
[2025-04-14] MEDS: Thiamine HCL 100 MG in 0.9 % Sodium Chloride 100 ML 101 MG IV (08:54)
[2025-04-14] MEDS: 0.9 % Sodium Chloride Flush 3 ML SYRINGE IVFLUSH (08:55)
[2025-04-14] MEDS: Nystatin Oral Susp 500,000 UNIT/5 ML ORAL.SUSP 400000 UNIT PO ×2 (08:56→14:21)
--- NOTE | 2025-04-14 10:19 | P.PNADD_ITS ---
Subjective Subjective Date of Service: 04/14/25 Reason For Visit: Alcohol Withdrawal Interim History: Patient seen in follow up Methadone 40mg this morning, reporting she feels better. No withdrawal sx noted or reported Reviewed presenting to [facility] in the morning with last dose letter Alcohol withdrawal sx resolved as well Patient reporting that she does not drink all of the time, but when she does, she views it as problematic--encouraged patient to discuss this with providers at [facility] Review of Systems Constitutional: Reports as per HPI and Reports no additional constitutional complaints Mental Status Exam Mental Status Exam Patient Appearance: Appropriate Level of Consciousness: Awake, Appropriate and Alert Patient Behavior: Appropriate, Guarded and Cooperative Affect Description: Constricted Speech Pattern: Clear Hallucinations: None Thought Process: Intact Thought Content: positive for Intact Judgement: Good Diagnostics Vital Signs (24Hr): Vital Signs - 24 hr 04/13/25 11:07 04/13/25 16:00 04/13/25 19:17 Temperature 97.5 F 97.4 F 97.6 F Pulse Rate 75 67 76 Respiratory Rate 16 18 16 Blood Pressure 116/68 112/55 L 119/59 L Pulse Oximetry 97 96 98 Oxygen Delivery Method Room Air Room Air Room Air 04/13/25 20:19 04/13/25 23:59 04/14/25 03:14 Temperature 98.5 F 98.3 F Pulse Rate 60 63 57 Respiratory Rate 16 16 Blood Pressure 131/64 137/65 Pulse Oximetry 97 95 Oxygen Delivery Method Room Air Room Air 04/14/25 07:05 Temperature 97.9 F Pulse Rate 59 Respiratory Rate 16 Blood Pressure 140/65 H Pulse Oximetry 98 Oxygen Delivery Method Room Air BMI result Body Mass Index 35.7 Labs 04/11/25 12:51 04/11/25 12:51 Medications Medications Current Medications Acetaminophen (Acetaminophen 325 Mg Tablet) 650 mg PO Q6H PRN PRN Reason: Pain, Mild 1-3,fever,headache Al Hydroxide/Mg Hydroxide (Magnesium Hydrox/Alum Hydrox 30 Ml Oral.Susp) 30 ml PO Q4H PRN PRN Reason: Heartburn Albuterol Sulfate (Albuterol Sulfate 90 Mcg 8 Gm Inhaler) 2 puff INHALE Q6H PRN PRN Reason: Wheezing Calcium Carbonate (Calcium Carbonate 750 Mg Tab.Chew) 750 mg PO Q4H PRN PRN Reason: Heartburn Chlorpromazine HCl (Chlorpromazine Hcl 100 Mg Tablet) 100 mg PO BID PRN PRN Reason: severe anxiety Clonazepam (Clonazepam 0.5 Mg Tablet) 0.5 mg PO TID PRN PRN Reason: anxiety/restlessness Doxepin HCl (Doxepin Hcl 10 Mg Capsule) 20 mg PO BEDTIME [facility] Last Admin: 04/13/25 20:18 Dose: 20 mg Folic Acid 1 mg/ Sodium (Chloride) 50.2 mls @ 100.4 mls/hr IV DAILY [facility] Last Infusion: 04/14/25 10:16 Dose: Infused Thiamine HCl 100 mg/ Sodium (Chloride) 101 mls @ 202 mls/hr IV DAILY [facility] Last Infusion: 04/14/25 10:16 Dose: Infused Magnesium Hydroxide (Milk Of Magnesia 30 Ml Oral.Susp) 30 ml PO DAILY PRN PRN Reason: Constipation Melatonin (Melatonin 3 Mg Tablet) 6 mg PO BEDTIME PRN PRN Reason: Insomnia Methadone HCl (Methadone Hcl 20 Mg/2 Ml Oral.Conc) 10 mg PO DAILY PRN PRN Reason: Opiate Withdrawal Last Admin: 04/13/25 15:20 Dose: 10 mg Methadone HCl (Methadone Hcl 20 Mg/2 Ml Oral.Conc) 40 mg PO DAILY@0800 [facility] Last Admin: 04/14/25 08:52 Dose: 40 mg Nystatin (Nystatin Oral Susp 500,000 Unit/5 Ml Oral.Susp) 400,000 unit PO QID [facility]; Protocol Last Admin: 04/14/25 08:56 Dose: 400,000 unit Ondansetron HCl (Ondansetron Hcl 4 Mg/2 Ml Vial) 4 mg IVPUSH Q8H PRN PRN Reason: Nausea and Vomiting Pharmacy Consult (Consult Rx Etoh Phenob Im/Po) 1 each MISCELLANE ONCE PRN; Protocol PRN Reason: Consult order Phenobarbital (Phenobarbital 15 Mg Tablet) 15 mg PO BID [facility]; Protocol Stop: 04/15/25 21:01 Last Admin: 04/14/25 08:53 Dose: 15 mg Phenobarbital (Phenobarbital 15 Mg Tablet) 15 mg PO DAILY [facility]; Protocol Stop: 04/17/25 09:01 Pramipexole Dihydrochloride (Pramipexole Di-Hcl 0.25 Mg Tablet) 0.25 mg PO BEDTIME [facility] Last Admin: 04/13/25 20:18 Dose: 0.25 mg Propranolol HCl (Propranolol Hcl 40 Mg Tablet) 40 mg PO BID [facility]; Protocol Last Admin: 04/14/25 08:52 Dose: 40 mg Quetiapine Fumarate (Quetiapine Fumarate 50 Mg Tablet) 50 mg PO BEDTIME [facility] Last Admin: 04/13/25 20:19 Dose: 50 mg Quetiapine Fumarate (Quetiapine Fumarate 300 Mg Tablet) 300 mg PO BEDTIME [facility] Last Admin: 04/13/25 20:18 Dose: 300 mg Sertraline HCl (Sertraline Hcl 50 Mg Tablet) 150 mg PO DAILY [facility] Last Admin: 04/14/25 08:52 Dose: 150 mg Sodium Chloride (0.9 % Sodium Chloride Flush 3 Ml Syringe) 3 ml IVFLUSH QSHIFT [facility] Last Admin: 04/14/25 08:55 Dose: 3 ml Trazodone HCl (Trazodone Hcl 50 Mg Tablet) 50 mg PO BEDTIME PRN PRN Reason: Insomnia Allergies Allergies Allergy/AdvReac Type Severity Reaction Status Date / Time Penicillins Allergy Intermediate HIVES Verified 04/11/25 12:53 Assessment & Plan Assessment & Plan (1) Opioid use disorder: Status: Acute Code(s): F11.90 - Opioid use, unspecified, uncomplicated Assessment and Plan: * methadone 40mg today * follow up [facility] tomorrow morning --referral already sent * take home narcan Total time managing care of this patient today __25__ minutes.
[2025-04-14 10:36] VITALS: BP 133/74; PULSE 64; RESP 14; TEMP 36.4; O2SAT 97
--- NOTE | 2025-04-14 14:22 | MHC.CM.PN ---
Patient has been medically cleared for dc to home today, self care. Last IMM was addressed on 04/12/2025. [facility] has no openings left today; CM arranged for a 3PM [facility] to transport Patient to home. Patient, RN, & MD are aware.
[2025-04-15 22:49] LABS: CK-BB None Detected (None Detected); CK-MB 0 % (<5); CK-MM 94 % (95-100); Creatine Kinase Isoenzyme Itrp MACRO CK TYPE 1; Creatine Kinase,Total,Serum 2956 U/L (20-239)
== END 2025-04-14 15:01 | disposition home or self-care (01) | DRG 897 ==
LOC: HO.ED 14:48 → HO.EDOVER 14:56 → HO.IMC 19:33
PROVIDERS: Physician Assistant Medical; Admitting Provider Internal Medicine; Emergency Provider Emergency Medicine; Visit Provider Internal Medicine
DX: F10.939 Alcohol use, unspecified with withdrawal, unspecified (principal); F11.23 Opioid dependence with withdrawal; F19.939 Other psychoactive substance use, unspecified with withdrawal, unspecified; F17.210 Nicotine dependence, cigarettes, uncomplicated; F25.0 Schizoaffective disorder, bipolar type; Z71.6 Tobacco abuse counseling; F43.10 Post-traumatic stress disorder, unspecified; Z20.822 Contact with and (suspected) exposure to COVID-19; Z79.899 Other long term (current) drug therapy
CPT/HCPCS: 36415; 71046; 80053; 80307; 81001; 82552; 82803; 83605; 83735; 85025; 85652; 86140; 87040; 87086; 87637; 93005; 99285; J0696; J1200; J1808; J2560; J3360; J3374; J3411; J7120; S9485

== ENCOUNTER → 2025-04-11 12:11 | Outpatient (BNV) | payer MEDICARE, MEDICAID, SELFPAY | PROVIDERS: Visit Provider Nuclear Medicine | DX: R05.9 Cough, unspecified (principal) | CPT/HCPCS: 71046 ==

== ENCOUNTER → 2025-04-11 12:11 | Outpatient (BNV) | payer MEDICARE, MEDICAID, SELFPAY | PROVIDERS: Admitting Provider Internal Medicine; Emergency Provider Emergency Medicine; Visit Provider Internal Medicine Cardiovascular Disease | DX: R00.0 Tachycardia, unspecified (principal) | CPT/HCPCS: 93010 ==

== ENCOUNTER → 2025-04-11 14:33 | Outpatient (BNV) | payer MEDICARE, MEDICAID, SELFPAY | PROVIDERS: Admitting Provider Internal Medicine; Emergency Provider Emergency Medicine; Visit Provider Nurse Practitioner Psychiatric/Mental Health | DX: F11.90 Opioid use, unspecified, uncomplicated (principal) | CPT/HCPCS: 99222; 99232 ==

== ENCOUNTER → 2025-04-11 14:33 | Outpatient (BNV) | payer MEDICARE, MEDICAID, SELFPAY | PROVIDERS: Admitting Provider Internal Medicine; Emergency Provider Emergency Medicine; Visit Provider Internal Medicine | DX: F10.939 Alcohol use, unspecified with withdrawal, unspecified (principal); F11.90 Opioid use, unspecified, uncomplicated; F10.90 Alcohol use, unspecified, uncomplicated | CPT/HCPCS: 99223; 99232 ==

== ENCOUNTER 2025-04-23 13:27 | Inpatient (IN) | payer MEDICARE, MEDICAID, SELFPAY ==
--- NOTE | ~2025-04-23 | XR_ITS ---
EXAMINATION: XR FOOT, RIGHT CLINICAL INFORMATION: right 3rd/4th toe redness. osteo? COMPARISON: None available. TECHNIQUE: AP, lateral, and oblique views of the right foot. FINDINGS: No fracture, dislocation, or suspicious bone lesion. There is normal alignment. No region of permeative bone change or focal osteopenia to suggest radiographic changes of osteomyelitis. Joint spaces are preserved. Normal plantar arch. The mid and hindfoot appear normal. Mild soft tissue swelling involving the dorsum of the forefoot. XR/XR foot RT 2V IMPRESSION: 1.No acute bony abnormalities. No radiographic evidence of osteomyelitis. 2. There is soft tissue swelling of the dorsum of the forefoot. Electronically signed by: Josue Parker MD 04/23/2025 02:15 PM EDT
--- NOTE | ~2025-04-23 | XR_ITS ---
EXAMINATION: XR CHEST CLINICAL INFORMATION: water inhalation COMPARISON: April 11, 2025 TECHNIQUE: Frontal view of the chest was obtained. FINDINGS: No significant abnormality is noted involving the heart, lungs, mediastinum, bony thorax or soft tissues. XR/XR chest 1V IMPRESSION: No acute disease Electronically signed by: Corky Viramontes MD 04/23/2025 04:13 PM EDT RP
[2025-04-23 13:33] VITALS: BP 141/68; PULSE 66; RESP 16; TEMP 36.3; O2SAT 100; BMI 35.5
--- NOTE | 2025-04-23 13:35 | ED.GENADULT ---
HPI - General Adult General Chief complaint: Psychiatric Symptoms Stated complaint: SI Time Seen by Provider: 04/23/25 14:15 Source: patient Mode of arrival: ambulatory Limitations: no limitations History of Present Illness ED Provider: Aron Hammonds PA-C HPI narrative: 44-year-old female with medical history of alcohol use disorder, opiate use disorder, schizoaffective disorder, asthma, PTSD, depression, presents to the emergency department due to SI with attempted drowning prior to arrival. Patient states that she has had increased stress in her life, and has had 2 months of increased thoughts of suicidal ideation. Patient states she attempted to drown herself in the bathroom today when a friend came over on prompted found her in the bathtub and helped her get out. Patient states she did inhale water during this process. Patient states she has been hearing voices that tell her to kill herself, has not been on any meds recently. Additionally patient has a wound on the right dorsal aspect of the foot over the toes, does not know how she got this, states there has been some greenish discharge, and it is painful. Patient states she uses 10 bundles of IV heroin daily, last use yesterday (04/22), drinks 2 pt of vodka per day last drink was yesterday (04/22) Denies HI, visual hallucinations. complaint: SI with plan, R foot lesion Related Data Home Medications ?Medication ?Instructions ?Recorded ?Confirmed albuterol sulfate 90 mcg/actuation 1 - 2 puff inhalation Q4-6H PRN 04/25/25 04/25/25 aerosol inhaler Shortness Of Breath Or Wheezing chlorpromazine 100 mg tablet 100 mg PO BID 04/25/25 04/25/25 clonazepam 0.5 mg tablet 0.5 mg PO TID 04/25/25 04/25/25 clonidine HCl 0.1 mg tablet 0.1 mg PO Q6H PRN Anxiety 04/25/25 04/25/25 cyclobenzaprine 5 mg tablet 5 mg PO TID PRN Muscle Spasm 04/25/25 04/25/25 doxepin 10 mg capsule 20 mg PO BEDTIME 04/25/25 04/25/25 hydroxyzine pamoate 50 mg capsule 50 mg PO BID PRN anxiety/agitation 04/25/25 04/25/25 pramipexole 0.25 mg tablet 0.25 mg PO BEDTIME 04/25/25 04/25/25 prazosin 2 mg capsule 6 mg PO BEDTIME 04/25/25 04/25/25 quetiapine 300 mg tablet 300 mg PO BEDTIME 04/25/25 04/25/25 quetiapine 50 mg tablet 50 mg PO DAILY 04/25/25 04/25/25 sertraline 50 mg tablet 150 mg PO DAILY 04/25/25 04/25/25 trazodone 50 mg tablet 50 mg PO BEDTIME 04/25/25 04/25/25 Previous Rx's ?Medication ?Instructions ?Recorded doxycycline monohydrate 100 mg 100 mg PO BID #14 caps 04/28/25 capsule methadone 10 mg/mL oral 40 mg (4 mL) PO DAILY@0800 #1 mL 04/28/25 concentrate (Methadose) Allergies Allergy/AdvReac Type Severity Reaction Status Date / Time Penicillins Allergy Intermediate HIVES Verified 04/23/25 13:35 Review of Systems Review of Systems: CONST: Negative for fever, body aches and chills. HENT: Negative for neck pain/stiffness, headache, congestion, sore throat, swelling. EYES: Negative for discharge/pain or vision changes. RESP: Negative for cough/hemoptysis and shortness of breath. CV: Negative chest pain, difficulty breathing, palpitations. ABD: Negative pain, nausea, vomiting. : Negative increase frequency, dysuria, blood in urine or stool. MUSC: Negative for muscle aches, edema. SKIN: Negative rash, lesions/sores. POS painful lesion over dorsum of R foot NEURO: Negative headache, dizziness, weakness. PSYCH: POS SI with plan, auditory hallucinations Yes all other systems are reviewed and are negative [facility] Past Medical History Medical History (Updated 04/27/25 @ 09:55 by Rodrigo Santamaria MD) Opioid use disorder Schizoaffective disorder, bipolar type Umbilical hernia, incarcerated Alcohol use disorder Polysubstance use disorder Asthma PTSD (post-traumatic stress disorder) Recurrent major depression Social History Social History Household Members: None Housing: Other Housing Other:: mobile home Do you presently have visiting nurse or other home services: No Unable to assess alcohol history related to: Unknown Alcohol intake: current Alcohol intake frequency: 3 or more drinks per day Alcohol type: hard liquor Comment: 1:1 sitter at bedside for SI Patient Tobacco Use Status: Current everyday Tobacco user Tobacco use type: Cigarette Cigarette Packs Per Day: 1 Cigarettes Per Day: 20.0 e-Cigarette/Vaping Use: Currently Using Second Hand Smoke Exposure: No Substance Use Type: Heroin service: No Sexual orientation: Straight/Heterosexual Physical Exam ED Vital Signs: Vital Signs - 24 hr 04/23/25 13:33 04/23/25 14:54 04/23/25 15:47 Temperature 97.3 F 98.7 F 98.3 F Pulse Rate 66 79 54 Respiratory Rate 16 20 12 Blood Pressure 141/68 H 170/87 H 160/78 H Pulse Oximetry 100 100 100 Oxygen Delivery Method Room Air Room Air Room Air BMI result Body Mass Index 35.5 GENERAL APPEARANCE: ?AxOx3, tearful, anxious, jittery. HEENT: ?NC, AT. MMM. EOMI, clear conjunctiva, oropharynx clear. NECK: ?Supple without lymphadenopathy.? No stiffness or restricted ROM. HEART:? Normal rate and regular rhythm, normal S1/S2, no m/r/g LUNGS:? CTAB, moving air well. mild expiratory wheeze ABDOMEN: ?Soft, nontender, nondistended with good bowel sounds heard. EXTREMITIES: ?Without cyanosis, clubbing or edema. R foot with lesion over dorsum. See attached photo NEUROLOGICAL: ?Grossly nonfocal. Alert and oriented, moving all 4 extremities. Observed to ambulate with normal gait. Skin: ?Warm and dry without any rash. Course Course Course Narrative: RME: 44 yold female with pmh of Depression presents to the ED for SI attempt. patient tried to drown herself at home in the tub. patient right 3rd& 4th toes is red and drainage. labs, xray, care team consult placed Medications Administered Discontinued Medications Generic Name Dose Route Start Last Admin Trade Name Freq PRN Reason Stop Dose Admin Chlorpromazine HCl 100 mg 04/26/25 10:00 04/26/25 11:08 Chlorpromazine Hcl 100 Mg Tablet PO 100 mg BID IJEOMA Administration Clonazepam 0.5 mg 04/26/25 09:41 04/28/25 09:08 Clonazepam 0.5 Mg Tablet PO 0.5 mg TID PRN Administration Anxiety Clonidine HCl 0.1 mg 04/25/25 10:45 04/26/25 09:35 Clonidine Hcl 0.1 Mg Tablet PO 0.1 mg TID PRN Administration Opiate Withdrawal Protocol Diazepam 5 mg 04/24/25 09:23 04/24/25 10:29 Diazepam 10 Mg/2 Ml Cartridge IVPUSH 04/24/25 09:24 5 mg STAT STA Administration Doxepin HCl 20 mg 04/26/25 21:00 04/27/25 21:15 Doxepin Hcl 10 Mg Capsule PO 20 mg BEDTIME IJEOMA Administration Doxycycline Monohydrate 100 mg 04/25/25 11:15 04/28/25 08:00 Doxycycline Monohydrate 100 Mg Capsule PO 100 mg BID IJEOMA Administration Enoxaparin Sodium 40 mg 04/24/25 09:00 04/28/25 07:59 Enoxaparin Sodium 40 Mg/0.4 Ml Syringe SUBCUT 40 mg Q24H IJEOMA Administration Folic Acid 1 mg 04/24/25 09:00 04/26/25 07:39 Folic Acid 1 Mg Tablet PO 04/27/25 08:59 1 mg DAILY IJEOMA Administration Cefepime HCl 2 gm in 50 mls @ 100 mls/hr 04/23/25 16:04 04/23/25 18:35 Maxipime IV 04/23/25 16:33 Infused ONCE ONE Infusion Thiamine HCl 100 mg/ Sodium 101 mls @ 202 mls/hr 04/23/25 20:28 04/23/25 22:11 Chloride IV 04/23/25 20:57 Infused ONCE ONE Infusion Vancomycin HCl 1,250 mg/ 250 mls @ 166.667 mls/hr 04/23/25 20:59 04/24/25 00:00 Sodium Chloride IV 04/23/25 22:28 Infused ONCE ONE Infusion Vancomycin HCl 1,250 mg/ 250 mls @ 166.667 mls/hr 04/24/25 09:00 04/25/25 10:34 Sodium Chloride IV Infused Q12H IJEOMA Infusion Lorazepam 2 mg 04/23/25 15:57 04/23/25 16:57 Lorazepam 1 Mg Tablet PO 04/23/25 15:58 2 mg ONCE ONE Administration Methadone HCl 30 mg 04/24/25 10:30 04/26/25 07:37 Methadone Hcl 20 Mg/2 Ml Oral.Conc PO 30 mg DAILY@0800 IJEOMA Administration Methadone HCl 10 mg 04/24/25 10:41 04/24/25 17:51 Methadone Hcl 20 Mg/2 Ml Oral.Conc PO 10 mg DAILY PRN Administration Opiate Withdrawal Methadone HCl 10 mg 04/25/25 11:00 04/25/25 11:00 Methadone Hcl 20 Mg/2 Ml Oral.Conc PO 04/25/25 11:01 10 mg ONCE ONE Administration Methadone HCl 40 mg 04/27/25 08:00 04/28/25 08:00 Methadone Hcl 20 Mg/2 Ml Oral.Conc PO 40 mg DAILY@0800 IJEOMA Administration Methadone HCl 10 mg 04/26/25 09:37 04/26/25 10:21 Methadone Hcl 10 Mg Tablet PO 04/26/25 09:38 10 mg ONCE ONE Administration Multivitamins/Vitamin C 1 tab 04/24/25 09:00 04/26/25 07:39 Multivitamin Tablet PO 04/27/25 08:59 1 tab DAILY IJEOMA Administration Nicotine 21 mg 04/24/25 09:00 04/28/25 07:59 Nicotine 21 Mg Patch.Td24 TRANSDERMA 21 mg DAILY IJEOMA Administration Ondansetron HCl 4 mg 04/23/25 20:28 04/28/25 09:16 Ondansetron Hcl 4 Mg/2 Ml Vial IVPUSH 4 mg Q8H PRN Administration Nausea and Vomiting Oxycodone HCl 5 mg 04/23/25 20:28 04/28/25 13:43 Oxycodone Hcl Immed Release 5 Mg Tablet PO 5 mg Q6H PRN Administration Pain, Severe (Pain Scale 7-10) Phenobarbital 45 mg 04/24/25 09:00 04/25/25 21:54 Phenobarbital 15 Mg Tablet PO 04/25/25 21:01 45 mg BID IJEOMA Administration Phenobarbital 30 mg 04/26/25 09:00 04/26/25 07:39 Phenobarbital 30 Mg Tablet PO 04/27/25 21:01 30 mg BID IJEOMA Administration Phenobarbital Sodium 200 mg 04/23/25 16:15 04/23/25 18:15 Phenobarbital Sodium 130 Mg/Ml Im Once IM 04/23/25 16:16 200 mg ONCE ONE Administration Phenobarbital Sodium 150 mg 04/23/25 19:15 04/24/25 01:18 Phenobarbital Sodium 130 Mg/Ml Vial Im Q3hx2 IM 04/23/25 22:16 Not Given Q3H IJEOMA Phenobarbital Sodium 150 mg 04/24/25 01:15 04/24/25 04:23 Phenobarbital Sodium 130 Mg/Ml Vial Im Q3hx2 IM 04/24/25 04:16 150 mg Q3H IJEOMA Administration Pramipexole Dihydrochloride 0.25 mg 04/26/25 21:00 04/27/25 21:15 Pramipexole Di-Hcl 0.25 Mg Tablet PO 0.25 mg BEDTIME IJEOMA Administration Prazosin HCl 6 mg 04/26/25 21:00 04/27/25 21:14 Prazosin Hcl 1 Mg Capsule PO 6 mg BEDTIME IJEOMA Administration Protocol Risperidone 1 mg 04/26/25 21:00 04/28/25 08:00 Risperidone 1 Mg Tablet PO 1 mg BID IJEOMA Administration Sertraline HCl 150 mg 04/27/25 09:00 04/28/25 08:00 Sertraline Hcl 50 Mg Tablet PO 150 mg DAILY IJEOMA Administration Sodium Chloride 3 ml 04/24/25 00:00 04/28/25 08:00 0.9 % Sodium Chloride Flush 3 Ml Syringe IVFLUSH 3 ml QSHIFT IJEOMA Administration Thiamine HCl 100 mg 04/24/25 09:00 04/26/25 07:39 Thiamine Hcl 100 Mg Tablet PO 04/27/25 08:59 100 mg DAILY IJEOMA Administration Tramadol HCl 50 mg 04/23/25 20:28 04/25/25 12:08 Tramadol Hcl 50 Mg Tablet PO 50 mg Q6H PRN Administration Pain, Moderate(Pain Scale 4-6) Trazodone HCl 50 mg 04/26/25 21:00 04/27/25 21:15 Trazodone Hcl 50 Mg Tablet PO 50 mg BEDTIME IJEOMA Administration Procedures Procedure Narrative Procedure Narrative: Ultrasound Guided Peripheral Intravenous Catheter Placement Indication: Intravenous Access Location: Right brachial vein proximal Provider: Self I was approached by nursing staff and informed that multiple unsuccessful attempts had been made to establish IV access in the patient. The patients arm was surveyed with the ultrasound for verification of vessel collapsibility, patency, depth and caliber, as well as identification of nearby structures. The target area was prepped with chlorhexidine. A tourniquet was placed proximally on the extremity. Under real-time ultrasound guidance, an [20 G 2.25 inch AccuCath nontunneled catheter] ? was advanced into the target vein. Dark blood was visualized in the flash chamber. The catheter was easily advanced into the vein. The catheter was evacuated of air and flushed with sterile saline. The catheter was secured in place with a tegaderm. The patient tolerated the procedure well and there were no complications. Estimated Blood Loss: 1mL Total Time for Procedure: 5min Images Stored CPT: 76426; 66343 Medical Decision Making Medical Decision Making MDM Narrative: 44-year-old female with medical history of alcohol use disorder, opiate use disorder, schizoaffective disorder, asthma, PTSD, depression, presents to the emergency department due to SI with attempted drowning prior to arrival. Patient states that she has had increased stress in her life, and has had 2 months of increased thoughts of suicidal ideation. Patient states she attempted to drown herself in the bathroom today when a friend came over on prompted found her in the bathtub and helped her get out. Patient states she did inhale water during this process. Patient states she has been hearing voices that tell her to kill herself, has not been on any meds recently. Additionally patient has a wound on the right dorsal aspect of the foot over the toes, does not know how she got this, states there has been some greenish discharge, and it is painful. Patient states she uses 10 bundles of IV heroin daily, last use yesterday (04/22), drinks 2 pints of vodka per day last drink was yesterday (04/22) Denies HI, visual hallucinations. VSS, patient tearful, anxious, jittery upon initial assessment. Physical exam reveals mild expiratory wheeze on lung exam, cardiac exam with normal rate rhythm, no murmurs/rubs/gallops, abdomen soft, nondistended nontender. Lower extremities without evidence of edema, right foot with lesion of the distal dorsum, without edema, not actively draining (see attached photo on physical exam portion of this note) Labs without leukocytosis, CRP mildly elevated at 0.81. Patient is started on phenobarb protocol, given 2 mg p.o. Ativan for withdrawal and agitation relief, 2 g cefepime for coverage of possible foot cellulitis. Does not meet sepsis protocol at this time. Right foot x-ray without evidence of osteomyelitis. Chest x-ray without any acute processes. I spoke to hospitalist Dr. Mendoza who agreed to admission for ETOH pheno earle management and secondary foot infection. Differential Diagnosis Differential Diagnoses: The differential diagnosis associated with the presentation includes SI Osteomyelitis Aspiration pneumonia Alcohol withdrawal Admission/Observation Consideration of admission/observation: Escalation of care including admission/observation considered Consult Healthcare Provider Management of the patient was discussed with: Hospitalist (Dr. Mendoza) Lab Data MDM Lab Attestation statement: I reviewed the patient's lab results. 04/26/25 05:50 04/26/25 05:50 Labs: Lab Results 04/23/25 04/23/25 Range/Units 13:51 14:19 WBC 6.5 (4.8-10.8) X10*3/uL RBC 4.05 L (4.20-5.50) X10*6/uL Hgb 11.7 L (12.0-16.0) g/dl Hct 35.9 L (37.0-47.0) % MCV 88.6 (80.0-98.0) fL MCH 28.9 (27.0-33.0) pg MCHC 32.6 (31.0-35.0) g/dl RDW 14.2 (11.0-16.0) % Plt Count 346 D (160-400) X10*3/uL MPV 9.8 (9.4-12.3) fL Immature Gran % (Auto) 0.5 H (0.0-0.4) % Neut % (Auto) 63.9 (45-73) % Lymph % (Auto) 25.8 (20-40) % Alpine % (Auto) 6.9 (2-11) % Eos % (Auto) 2.1 (0-4) % Baso % (Auto) 0.8 (0-2) % Lymph # (Auto) 1.7 (1.2-4.9) X10*3/uL Alpine # (Auto) 0.5 (0.1-1.2) X10*3/uL Eos # (Auto) 0.1 (0.0-0.4) X10*3/uL Baso # (Auto) 0.1 (0.0-0.2) X10*3/uL Abs Immat Gran (auto) 0.03 (0.00-0.03) X10*3/uL Absolute Neuts (auto) 4.2 (2.0-8.3) x10*3/uL Absolute Nucleated RBC 0.000 (0.0-0.012) X10*3/uL Nucleated RBC % (auto) 0.0 (0.0-0.2) /100WBC ESR 19 (0-20) MM/HR Sodium 141 (135-145) mmol/L Potassium 3.9 (3.3-5.1) mmol/L Chloride 107 (96-108) mmol/L Carbon Dioxide 25 (22-29) mmol/L Anion Gap 13 (12-20) BUN < 3 L (9-16) mg/dL Creatinine 0.65 (0.5-1.4) mg/dL Estim Creat Clear Calc 112.6 Estimated GFR > 60 Random Glucose 111 (60-115) mg/dL Calcium 8.5 (8.4-10.2) mg/dL Magnesium 1.8 (1.6-2.6) mg/dL Total Bilirubin 0.2 (0.0-1.0) mg/dL AST 26 (5-31) U/L ALT 25 (0-31) U/L Alkaline Phosphatase 114 (39-117) U/L C-Reactive Protein 0.81 H (< or = 0.50) mg/dL Total Protein 7.2 (6.5-8.0) g/dL Albumin 3.7 (3.5-5.0) g/dL Beta HCG, Quant < 2 mIU/mL Urine Color Dark Yellow Urine Appearance Clear Urine pH 6.0 (5.0-9.0) Ur Specific Roxton 1.020 (1.005-1.025) Urine Protein Negative (Neg-Trace) mg/dL Urine Glucose (UA) Negative (Negative) mg/dL Urine Ketones Negative (Negative) mg/dL Urine Blood Negative (Negative) Urine Nitrite Negative (Negative) Ur Leukocyte Esterase Negative (Negative) Urine RBC 0-2 (0-2) /HPF Urine WBC 0-5 (0-5) /HPF Ur Squamous Epith Cells 3-5 (0-2) /HPF Urine Bacteria Trace (None Seen) Hyaline Casts 0-2 (0-2) /LPF Urine Opiates Screen POSITIVE H (Not Detect) Ur Buprenorphine Scrn Not Detected (Not Detect) ng/mL Ur Oxycodone Screen Not Detected (Not Detect) ng/mL Urine Methadone Screen Positive H (Not Detect) ng/mL Urine Fentanyl Screen POSITIVE H (Not Detect) Ur Barbiturates Screen POSITIVE H (Not Detect) Ur Phencyclidine Scrn Not Detected (Not Detect) Ur Amphetamines Screen Not Detected (Not Detect) U Benzodiazepines Scrn POSITIVE H (Not Detect) Urine Cocaine Screen POSITIVE H (Not Detect) U Marijuana (THC) Screen POSITIVE H (Not Detect) Ethyl Alcohol < 10 mg/dL Independent Interpretation I performed an independent interpretation of an: Plain X-Ray Interpretation: I independently interpreted right foot x-ray, chest x-ray Right foot x-ray without evidence of osteomyelitis, no fractures no dislocations, I agree with the radiologist's impression Chest x-ray without evidence of pneumonia, pulmonary edema, pulmonary effusion, I agree with the radiologist's impression Radiology Impression Discussion of test interpretation with radiology: I have reviewed the radiologist's reading. Radiologist Impression: R foot XR FINDINGS: No fracture, dislocation, or suspicious bone lesion. There is normal alignment. No region of permeative bone change or focal osteopenia to suggest radiographic changes of osteomyelitis. Joint spaces are preserved. Normal plantar arch. The mid and hindfoot appear normal. Mild soft tissue swelling involving the dorsum of the forefoot. XR/XR foot RT 2V IMPRESSION: 1.No acute bony abnormalities. No radiographic evidence of osteomyelitis. 2. There is soft tissue swelling of the dorsum of the forefoot. Electronically signed by: Josue Parker MD 04/23/2025 02:15 PM EDT Dictated By: Josue Parker MD Signed By: <Electronically signed by Josue Parker MD in OV> 04/23/25 1415 CXR FINDINGS: No significant abnormality is noted involving the heart, lungs, mediastinum, bony thorax or soft tissues. XR/XR chest 1V IMPRESSION: No acute disease Electronically signed by: Corky Viramontes MD 04/23/2025 04:13 PM EDT RP Dictated By: Corky Viramontes MD Signed By: <Electronically signed by Corky Viramontes MD in [place]> 04/23/25 1613 External Record Review External record reviewed: Inpatient record, Office record and Outpatient record Prescription Management I considered prescription management with: Antibiotic (Zosyn, patient with penicillin allergy, including hives. Decided on cefepime) Chronic Conditions Patient?s care impacted by: Other (Polysubstance use disorder, anxiety, depression, PTSD, asthma) Discharge Plan Discharge Clinical Impression: Wound of right foot, Depression Patient Disposition: Admitted As Inpatient Interventions: Admission Worksheet (ED) Last Done: 04/24/25 00:19 Discharge Date/Time: 04/24/25 01:36
[2025-04-23 13:49] VITALS: PULSE 66
--- NOTE | 2025-04-23 14:02 | PC.NURSE ---
Pt arrives to pod from waiting room with c/o SI. Per Pt she attempted to drown herself in the bath tub this morning. She is unable to report a trigger for this attempt but states when she woke up this morning she felt suicidal and therefore attempted to end her life. Pt reports she uses ETOH and Heroin daily, last use of both last night. CIWA and COWS completed. Pt ia A&Ox3 VSS She is cooperative with policy change clerks supervisor and questions, however presents with significant agitation, anxiety and is very restless. Pt presents with an area of discoloration to the base of her R 2nd and 3rd toes. Pt is unable to provide any insight on how her R foot became injured. Pt is currently in Xray for imagining. U/A sent to lab; blood work to be obtained. Awaiting ED provider
--- OUTSIDE RECORDS SUMMARY | 2025-04-23 14:03 | XMS_ITS | Clinical Summary ---
Author Organization [employer] Address [address] [place] [address] Care Team Providers Care Structural Steel Equipment Erector Name Role Phone Heavenly Delgadillo MD Primary Care Provider [phone] Medications * This document contains information received [...] by mouth Once per day. Active Immunizations Immunization Administration Dates Next Due Influenza, seasonal, injectable, [...] Screening 1979 SDOH Screening 1979 Sigmoidoscopy 1979 Disability Screening 1979 Alcohol/Substance Use Screening 1991 Tobacco Screening 1991 Family Planning (PISQ) 1994 HPV Vaccines (1 - 3-dose series) 1994 Hepatitis C Screening 1997 DTaP/Tdap/Td Vaccines (1 - Tdap) 1998 Hepatitis B Vaccines (1 of 3 - 19+ 3-dose series) 1998 Pap Smear 2000 Cervical Cancer Screening 2009 HPV/Cotest 2009 Mammogram 2019 COVID-19 Vaccine (1 - 2023-2 5 season) 2024 Influenza Vaccine (#1) 2025 5, 09/19/2012 Zoster Vaccines (1 of 2) 2029 RSV Patients and Patients Aged 60 years or older (1 - 1-dose 75+ series) 2054 Pneumococcal Vaccine: Pediatrics (0 to 5 Years) and At-Risk Patients (6 to 49) Years Aged Out 09/19/2012 No longer eligible b [...] patient's age to complete this topic Insurance STANDARD Care Teams Structural Steel Equipment Erector Relationship Specialty Start Date End Date Heavenly Delgadillo MD [address] [place] [id number] PCP - General Internal Medicine 05/11/24
--- OUTSIDE RECORDS SUMMARY | 2025-04-23 14:03 | XMS_ITS | Clinical Summary ---
Author Organization [facility] [employer] [facility] Address [address] [place] [address] Care Team Providers Care Resident Advisor Name Role Phone Terry Lin MD Primary Care Provider [phone] Social History Tobacco Use Types Packs/Day Years [...] Influencers of Health Screening 08/01/2024 Influenza Vaccine (#1) 2025 HIB Vaccines Aged Out No longer [...] 5 Years) and At-Risk Patients (6 to 49 Years) Aged Out No longer eligible b ased on patient's age to complete this topic RSV Immunization Patients Un aron 20 months Aged Out No longer eligible b ased on patient's age to complete this topic Varicella Vaccines Aged Out No longer eligible based on patient's age to complete this topic Care Teams Resident Advisor Relationship Specialty Start Date End Date Terry Lin MD PCP - General Internal Medicine 01/21/19
[2025-04-23 14:12] LABS: Cannabinoid Screen Urine POSITIVE (Not Detect)
[2025-04-23 14:23] LABS: MANUAL DIFF FLAG NO
[2025-04-23 14:24] LABS: Hematocrit 35.9 % (37.0-47.0); Hemoglobin 11.7 g/dl (12.0-16.0); Imm Gran Abs Auto 0.03 X10*3/uL (0.00-0.03); Imm Gran Pct Auto 0.5 % (0.0-0.4); Lymphocytes Absolute Auto 1.7 X10*3/uL (1.2-4.9); Mean Corpuscular HGB Conc 32.6 g/dl (31.0-35.0); Mean Corpuscular Hemoglobin 28.9 pg (27.0-33.0); Mean Corpuscular Volume 88.6 fL (80.0-98.0); NRBC Abs Auto 0.000 X10*3/uL (0.0-0.012); NRBC Pct Auto 0.0 /100WBC (0.0-0.2); Platelet Count 346 X10*3/uL (160-400); Red Blood Count 4.05 X10*6/uL (4.20-5.50); White Blood Count 6.5 X10*3/uL (4.8-10.8)
[2025-04-23 14:35] LABS: Appearance Urine Clear; Glucose Urine UA Negative (Negative); PH 6.0 (5.0-9.0); Specific Gravity - Urine 1.020 (1.005-1.025)
[2025-04-23 14:50] LABS: Alanine Aminotransferase 25 U/L (0-31); Albumin Level 3.7 g/dL (3.5-5.0); Alkaline Phosphatase 114 U/L (39-117); Anion Gap 13 (12-20); Aspartate Amino Transferase 26 U/L (5-31); Blood Urea Nitrogen < 3 mg/dL (9-16); Calcium 8.5 mg/dL (8.4-10.2); Carbon Dioxide 25 mmol/L (22-29); Chloride 107 mmol/L (96-108); Creatinine Clr Calc Pharmacy 112.6; Estimated Glomerular Filt Rate > 60; Potassium 3.9 mmol/L (3.3-5.1); Sodium 141 mmol/L (135-145); Total Protein 7.2 g/dL (6.5-8.0)
[2025-04-23 14:54] VITALS: BP 170/87; PULSE 79; RESP 20; TEMP 37.1; O2SAT 100
--- NOTE | 2025-04-23 15:42 | PC.NURSE ---
report from lalo CHEN
[2025-04-23 15:47] VITALS: BP 160/78; PULSE 54; RESP 12; TEMP 36.8; O2SAT 100
--- NOTE | 2025-04-23 16:40 | PC.NURSE ---
Having trouble getting IV access, 2 nurses attempted. Provider aware
[2025-04-23 18:00] VITALS: BP 170/92; PULSE 62; RESP 12; TEMP 36.8; O2SAT 100
[2025-04-23] MEDS: cefEPime HCl/D5W 2 GM/50 ML PIGGYBACK IV (18:02)
[2025-04-23] MEDS: PHENobarbitaL sodium 130 MG/ML IM ONCE 200 MG IM (18:15)
--- NOTE | 2025-04-23 20:02 | PHA.MEDREC ---
Pharmacy Consult ? Medication Reconciliation Med rec unobtainable. Pharmacy has attempted the medication reconciliation, however Patient is a poor historian. Every question I asked patient said I don't know'. Attempted to call patient contact on file, however phone has been D/C'd. Last fill date on any medications was from 03/03/25 for only 30 day supply.
--- NOTE | 2025-04-23 20:45 | P.HPHOSP_ITS ---
History of Present Illness Date of Service: 04/23/25 Attending physician on admission: John Hill Chief Complaint: attempted suicide Patient is a 44-year-old female with a past medical history significant for abscess, cellulitis, polysubstance abuse, PTSD, depression, mild intermittent asthma and class 2 obesity, who presented to the ED after an attempt to drown herself in her tub today. The patient reports that she has had auditory hallucinations telling her to kill herself by jumping off a bridge or drowning. She has had previous suicide attempts in the past. She admits to IV heroin about 10 buttonholes per day and 2 pt of vodka per day. She reports that she inhaled water during her attempt today. She also has a burn on the dorsal aspect of her right foot near the 3rd toe which has been present for a few days. The cause of this burn is unknown. The patient is very short with responses and does not provide much history. Review of Systems 2 Constitutional: Constitutional: Reports body ache(s), Denies chills, Denies fatigue, Denies fever(s) and Reports headache(s) Eyes: Eyes: Denies change in vision ENT: Reports headache(s), Denies nasal congestion and Denies sore throat Cardiovascular: Cardiovascular: Denies chest pain, Denies syncope, Denies rapid heart rate, Denies leg edema and Denies dyspnea Respiratory: Respiratory: Denies chest congestion, Denies cough, Denies dyspnea and Denies wheezing Gastrointestinal: Gastrointestinal: Denies abdominal pain, Denies diarrhea and Denies vomiting Genitourinary: Genitourinary: Denies difficulty voiding and Denies urinary urgency Musculoskeletal: Musculoskeletal: Reports myalgias Integumentary/Breasts: Skin/Breast: Reports as per HPI Neurologic: Denies confusion, Denies syncope and Reports headache(s) Psychiatric: Psychiatric: Denies confusion Endocrine: Endocrine: Denies fatigue Hematologic/Lymphatic: Hematologic/Lymphatic: Denies easy bleeding and Denies easy bruising Allergic/Immunologic: Allergic/Immunologic: Denies wheezing [facility] Medical History (Updated 04/23/25 @ 20:50 by Chantal Page PA-C) Umbilical hernia, incarcerated Alcohol use disorder Opioid use disorder Schizoaffective disorder, bipolar type Polysubstance use disorder Asthma PTSD (post-traumatic stress disorder) Recurrent major depression Functional capacity: independent ambulation Social History Household Members: None Housing: Other Housing Other:: mobile home Do you presently have visiting nurse or other home services: No Unable to assess alcohol history related to: Unknown Alcohol intake: current Alcohol intake frequency: 3 or more drinks per day Alcohol type: hard liquor Patient Tobacco Use Status: Current everyday Tobacco user Tobacco use type: Cigarette Cigarette Packs Per Day: 2 Cigarettes Per Day: 40.0 Smoked in Last 30 Days: Yes e-Cigarette/Vaping Use: Currently Using Second Hand Smoke Exposure: No Use of substances other than those prescribed or required for medical reasons: Yes Substance Use Type: Heroin Substance Use Frequency: Daily Substance Use Frequency Other:: Pt reports 3 bundles per day--last use last night Advance Directives: No Advance Directives Information Provided: Yes Do you have a plan to hurt others: No Plan service: No Sexual orientation: Straight/Heterosexual Narrative: Smokes 1 pack per day, uses IV heroin daily, drinks 2 pt of vodka daily. Meds Allergies Allergy/AdvReac Type Severity Reaction Status Date / Time Penicillins Allergy Intermediate HIVES Verified 04/23/25 13:35 Active Medications: Current Medications Acetaminophen (Acetaminophen 325 Mg Tablet) 975 mg PO Q6H PRN PRN Reason: Pain, Mild 1-3,fever,headache Calcium Carbonate (Calcium Carbonate 750 Mg Tab.Chew) 750 mg PO Q4H PRN PRN Reason: Heartburn Enoxaparin Sodium (Enoxaparin Sodium 40 Mg/0.4 Ml Syringe) 40 mg SUBCUT Q24H IJEOMA Folic Acid (Folic Acid 1 Mg Tablet) 1 mg PO DAILY IJEOMA Stop: 04/27/25 08:59 Thiamine HCl 100 mg/ Sodium (Chloride) 101 mls @ 202 mls/hr IV ONCE ONE Stop: 04/23/25 20:57 Magnesium Hydroxide (Milk Of Magnesia 30 Ml Oral.Susp) 30 ml PO DAILY PRN PRN Reason: Constipation Melatonin (Melatonin 3 Mg Tablet) 6 mg PO BEDTIME PRN PRN Reason: Insomnia Multivitamins/Vitamin C (Multivitamin Tablet) 1 tab PO DAILY IJEOMA Stop: 04/27/25 08:59 Ondansetron HCl (Ondansetron Hcl 4 Mg/2 Ml Vial) 4 mg IVPUSH Q8H PRN PRN Reason: Nausea and Vomiting Oxycodone HCl (Oxycodone Hcl Immed Release 5 Mg Tablet) 5 mg PO Q6H PRN PRN Reason: Pain, Severe (Pain Scale 7-10) Pharmacy Consult (Consult Rx Etoh Phenob Po Only) 1 each MISCELLANE ONCE PRN; Protocol PRN Reason: Consult order Phenobarbital (Phenobarbital 15 Mg Tablet) 45 mg PO BID [facility] Stop: 04/25/25 21:01 Phenobarbital (Phenobarbital 30 Mg Tablet) 30 mg PO BID [facility] Stop: 04/27/25 21:01 Phenobarbital (Phenobarbital 30 Mg Tablet) 30 mg PO DAILY [facility] Stop: 04/29/25 09:01 Phenobarbital Sodium (Phenobarbital Sodium 130 Mg/Ml Vial Im Q3hx2) 150 mg IM Q3H [facility] Stop: 04/23/25 22:16 Sodium Chloride (0.9 % Sodium Chloride Flush 3 Ml Syringe) 3 ml IVFLUSH QSHIFT IJEOMA Thiamine HCl (Thiamine Hcl 100 Mg Tablet) 100 mg PO DAILY [facility] Stop: 04/27/25 08:59 Tramadol HCl (Tramadol Hcl 50 Mg Tablet) 50 mg PO Q6H PRN PRN Reason: Pain, Moderate(Pain Scale 4-6) Home Medications ?Medication ?Instructions ?Recorded ?Confirmed ?Last Taken ?Type Unobtainable 04/23/25 04/23/25 Unknown History Physical Exam 2 Vital Signs and Narrative: Vital Signs: Last Vital Signs Temp 98.3 F 04/23/25 18:00 Pulse 62 04/23/25 18:00 Resp 12 04/23/25 18:00 BP 170/92 H 04/23/25 18:00 Pulse Ox 100 04/23/25 18:00 O2 Del Method Room Air 04/23/25 18:00 BMI result Body Mass Index 35.5 General: AOx3, no acute distress Resp: CTA bilaterally, diminished throughout, no wheezing or crackles. CVS: S1, S2, RRR GI: +BS, NT, no distention Skin: Warm, dry. burn wound R dorsal foot, no increased warmth or active drainage, no surrounding erythema Neuro: Cranial nerves II-XII grossly intact bilaterally. Motor grossly intact bilaterally Extremities: No LE edema Psych: flat, non-conversive Const: General: No confusion Orientation/consciousness: No confusion Neuro: General: No confusion Results Labs 04/23/25 14:19 04/23/25 14:19 Labs: Laboratory Results - last 24 hr 04/23/25 04/23/25 13:51 14:19 MCV 88.6 MCH 28.9 MCHC 32.6 RDW 14.2 Plt Count 346 D MPV 9.8 Immature Gran % (Auto) 0.5 H Neut % (Auto) 63.9 Lymph % (Auto) 25.8 [place] % (Auto) 6.9 Eos % (Auto) 2.1 Baso % (Auto) 0.8 Lymph # (Auto) 1.7 [place] # (Auto) 0.5 Eos # (Auto) 0.1 Baso # (Auto) 0.1 Abs Immat Gran (auto) 0.03 Absolute Neuts (auto) 4.2 Absolute Nucleated RBC 0.000 Nucleated RBC % (auto) 0.0 ESR 19 Anion Gap 13 Estim Creat Clear Calc 112.6 Estimated GFR > 60 Random Glucose 111 Calcium 8.5 Total Bilirubin 0.2 AST 26 ALT 25 Alkaline Phosphatase 114 C-Reactive Protein 0.81 H Total Protein 7.2 Albumin 3.7 Beta HCG, Quant < 2 Urine Color Dark Yellow Urine Appearance Clear Urine pH 6.0 Ur Specific [place] 1.020 Urine Protein Negative Urine Glucose (UA) Negative Urine Ketones Negative Urine Blood Negative Urine Nitrite Negative Ur Leukocyte Esterase Negative Urine RBC 0-2 Urine WBC 0-5 Ur Squamous Epith Cells 3-5 Urine Bacteria Trace Hyaline Casts 0-2 Urine Opiates Screen POSITIVE H Ur Buprenorphine Scrn Not Detected Ur Oxycodone Screen Not Detected Urine Methadone Screen Positive H Urine Fentanyl Screen POSITIVE H Ur Barbiturates Screen POSITIVE H Ur Phencyclidine Scrn Not Detected Ur Amphetamines Screen Not Detected U Benzodiazepines Scrn POSITIVE H Urine Cocaine Screen POSITIVE H U Marijuana (THC) Screen POSITIVE H Ethyl Alcohol < 10 Imaging Radiologist's Impressions: Impressions Foot X-Ray 04/23/25 13:11 IMPRESSION: 1.No acute bony abnormalities. No radiographic evidence of osteomyelitis. 2. There is soft tissue swelling of the dorsum of the forefoot. Electronically signed by: Josue Parker MD 04/23/2025 02:15 PM EDT Chest X-Ray 04/23/25 16:03 IMPRESSION: No acute disease Electronically signed by: Corky Viramontes MD 04/23/2025 04:13 PM EDT RP Assessment and Plan (1) Suicide attempt: Status: Acute (2) Wound of right foot: Status: Acute (3) Polysubstance abuse: Status: Acute (4) Alcohol use disorder: Status: Chronic (5) Tobacco use disorder: Status: Acute (6) Class 3 obesity: Status: Acute Plan Patient is a 44-year-old female with a past medical history significant for hx abscess/cellulitis, polysubstance abuse, PTSD, depression, mild intermittent asthma and class 2 obesity, who presented to the ED after an attempt to drown herself in her tub today. suicide attempt by drowning - CXR negative - O2 sat 100% ORA, no respiratory distress - care team consult in - 1 to 1 sitter - monitor vitals wound R foot ?burn - pt reports green pus drainage for the past few days - started on cefepime in ED, switch to vancomycin - no leukocytosis, vitals stable, no sepsis - XR foot without evidence of osteo, does show edema dorsal aspect - monitor CBC polysubstance abuse, alcohol use disorder - monitor CIWA - seizure precautions - on phenobarb procotol and received ativan in ED - thiamine, folic acid and multivitamin - check mag level - monitor on tele - addiction med consult tobacco use disorder - smoking cessation discussed - nicotine patch mild intermittent asthma, no acute exacerbation - continue home meds class 3 obesity - BMI 35.5 - weight loss encouraged med rec pending full code VTE prophy: lovenox Patient with attempted suicide by drowning today, complicated by alcohol use/polysubstance abuse and wound R foot, requiring admission for at least 2 midnights stay for care team/psych eval, IV abx and monitoring. Quality Stroke Does the patient have a stroke diagnosis?: No VTE Prior VTE?: No VTE Risk Level:: Medical - moderate - high VTE Device Contraindication: Treatment Not Indicated VTE Drug Contraindication: N/A - Med Ordered
[2025-04-23 20:47] LABS: Magnesium 1.8 mg/dL (1.6-2.6)
[2025-04-23 21:02] VITALS: BP 132/74; PULSE 63; RESP 16; TEMP 36.8; O2SAT 95
[2025-04-23] MEDS: Thiamine HCL 100 MG in 0.9 % Sodium Chloride 100 ML 202 MG IV (21:42)
--- NOTE | 2025-04-23 23:15 | PC.NURSE ---
Addendum entered by Katia Noriega 04/24/25 01:10: 2nd dose of Phenobarbital not given by previous RN, pharmacy contacted and able to retime medication. Original Note: This advertising writer assumed care of this Pt at [id number].
[2025-04-24] VITALS (9 sets, daily range): BP systolic 110–163; BP diastolic 67–95; PULSE 56–78; RESP 12–18; TEMP 36.1–37; O2SAT 97–100
[2025-04-24] MEDS: PHENobarbitaL sodium 130 MG/ML VIAL IM Q3Hx2 150 MG IM ×2 (01:17→04:23)
[2025-04-24] MEDS: 0.9 % Sodium Chloride Flush 3 ML SYRINGE IVFLUSH ×4 (01:19→21:40)
[2025-04-24] MEDS: oxyCODONE HCl Immed Release 5 MG TABLET PO ×2 (01:56→21:33)
[2025-04-24 07:32] LABS: Hematocrit 34.1 % (37.0-47.0); Hemoglobin 10.8 g/dl (12.0-16.0); Mean Corpuscular HGB Conc 31.7 g/dl (31.0-35.0); Mean Corpuscular Hemoglobin 28.3 pg (27.0-33.0); Mean Corpuscular Volume 89.3 fL (80.0-98.0); NRBC Abs Auto 0.000 X10*3/uL (0.0-0.012); NRBC Pct Auto 0.0 /100WBC (0.0-0.2); Platelet Count 301 X10*3/uL (160-400); Red Blood Count 3.82 X10*6/uL (4.20-5.50); White Blood Count 7.6 X10*3/uL (4.8-10.8)
[2025-04-24 07:45] LABS: Anion Gap 11 (12-20); Blood Urea Nitrogen 3 mg/dL (9-16); Calcium 8.3 mg/dL (8.4-10.2); Carbon Dioxide 24 mmol/L (22-29); Chloride 108 mmol/L (96-108); Creatinine Clr Calc Pharmacy 124.1; Estimated Glomerular Filt Rate > 60; Potassium 3.8 mmol/L (3.3-5.1); Sodium 139 mmol/L (135-145)
[2025-04-24] MEDS: Nicotine 21 MG PATCH.TD24 TRANSDERMA (08:44)
--- NOTE | 2025-04-24 08:59 | HE.PHANOTE ---
VANCO DOSE ADJUSTMENT BASED ON SCR DOSE CONTINUED AT 1250 Q 12H. NEXT LEVEL 04/25 @ 0700
--- NOTE | 2025-04-24 10:25 | HO.PM.IMPN ---
Subjective Subjective Date of Service: 04/24/25 Interval History: Concern for ongoing withdrawal this morning Constitutional Constitutional: Reports body ache(s), Denies chills, Denies fatigue, Denies fever(s) and Reports headache(s) Eyes Eyes: Denies change in vision ENT Ears, Nose, Mouth, and Throat: Reports headache(s), Denies nasal congestion and Denies sore throat Cardiovascular Cardiovascular: Denies chest pain, Denies syncope, Denies rapid heart rate, Denies leg edema and Denies dyspnea Respiratory Respiratory: Denies chest congestion, Denies cough, Denies dyspnea and Denies wheezing Gastrointestinal Gastrointestinal: Denies abdominal pain, Denies diarrhea and Denies vomiting Musculoskeletal Musculoskeletal: Reports myalgias Integumentary/Breasts Skin/Breast: Reports as per HPI Neurologic Neurologic: Denies confusion, Denies syncope and Reports headache(s) Psychiatric Psychiatric: Denies confusion Endocrine Endocrine: Denies fatigue Hematologic/Lymphatic Hematologic/Lymphatic: Denies easy bleeding and Denies easy bruising Allergic/Immunologic Allergic/Immunologic: Denies wheezing Physical Exam Exam: Exam: General: AOx3, no acute distress Resp: CTA bilaterally, diminished throughout, no wheezing or crackles. CVS: S1, S2, RRR GI: +BS, NT, no distention Skin: Warm, dry. burn wound R dorsal foot, no increased warmth or active drainage, no surrounding erythema Neuro: Cranial nerves II-XII grossly intact bilaterally. Motor grossly intact bilaterally Extremities: No LE edema Psych: flat Vital Signs: Vital Signs: Last Vital Signs Temp 97.2 F 04/24/25 08:00 Pulse 60 04/24/25 08:00 Resp 18 04/24/25 08:00 BP 163/75 H 04/24/25 08:00 Pulse Ox 98 04/24/25 08:00 O2 Del Method Room Air 04/24/25 08:00 BMI result Body Mass Index 35.5 Const: General: No confusion Orientation/consciousness: No confusion Neuro: General: No confusion Objective Data Active Medications Acetaminophen (Acetaminophen 325 Mg Tablet) 975 mg PO Q6H PRN PRN Reason: Pain, Mild 1-3,fever,headache Calcium Carbonate (Calcium Carbonate 750 Mg Tab.Chew) 750 mg PO Q4H PRN PRN Reason: Heartburn Enoxaparin Sodium (Enoxaparin Sodium 40 Mg/0.4 Ml Syringe) 40 mg SUBCUT Q24H [facility] Last Admin: 04/24/25 08:46 Dose: 40 mg Documented By: EDWARDO Folic Acid (Folic Acid 1 Mg Tablet) 1 mg PO DAILY [facility] Stop: 04/27/25 08:59 Last Admin: 04/24/25 08:46 Dose: 1 mg Documented By: EDWARDO Vancomycin HCl 1,250 mg/ (Sodium Chloride) 250 mls @ 166.667 mls/hr IV Q12H [facility] Last Admin: 04/24/25 08:49 Dose: 166.67 mls/hr Documented By: EDWARDO Magnesium Hydroxide (Milk Of Magnesia 30 Ml Oral.Susp) 30 ml PO DAILY PRN PRN Reason: Constipation Melatonin (Melatonin 3 Mg Tablet) 6 mg PO BEDTIME PRN PRN Reason: Insomnia Multivitamins/Vitamin C (Multivitamin Tablet) 1 tab PO DAILY [facility] Stop: 04/27/25 08:59 Last Admin: 04/24/25 08:47 Dose: 1 tab Documented By: EDWARDO Nicotine (Nicotine 21 Mg Patch.Td24) 21 mg TRANSDERMA DAILY [facility] Last Admin: 04/24/25 08:44 Dose: 21 mg Documented By: EDWARDO Ondansetron HCl (Ondansetron Hcl 4 Mg/2 Ml Vial) 4 mg IVPUSH Q8H PRN PRN Reason: Nausea and Vomiting Last Admin: 04/24/25 02:43 Dose: 4 mg Documented By: SAGRARIO Oxycodone HCl (Oxycodone Hcl Immed Release 5 Mg Tablet) 5 mg PO Q6H PRN PRN Reason: Pain, Severe (Pain Scale 7-10) Last Admin: 04/24/25 01:56 Dose: 5 mg Documented By: SAGRARIO Pharmacy Consult (Consult Rx Etoh Phenob Po Only) 1 each MISCELLANE ONCE PRN; Protocol PRN Reason: Consult order Pharmacy Consult (Consult Rx Vancomycin Dosing) 1 each MISCELLANE DAILY PRN PRN Reason: Consult order Phenobarbital (Phenobarbital 15 Mg Tablet) 45 mg PO BID [facility] Stop: 04/25/25 21:01 Last Admin: 04/24/25 08:47 Dose: 45 mg Documented By: EDWARDO Phenobarbital (Phenobarbital 30 Mg Tablet) 30 mg PO BID [facility] Stop: 04/27/25 21:01 Phenobarbital (Phenobarbital 30 Mg Tablet) 30 mg PO DAILY [facility] Stop: 04/29/25 09:01 Sodium Chloride (0.9 % Sodium Chloride Flush 3 Ml Syringe) 3 ml IVFLUSH QSHIFT [facility] Last Admin: 04/24/25 09:20 Dose: 3 ml Documented By: EDWARDO Thiamine HCl (Thiamine Hcl 100 Mg Tablet) 100 mg PO DAILY [facility] Stop: 04/27/25 08:59 Last Admin: 04/24/25 08:47 Dose: 100 mg Documented By: EDWARDO Tramadol HCl (Tramadol Hcl 50 Mg Tablet) 50 mg PO Q6H PRN PRN Reason: Pain, Moderate(Pain Scale 4-6) Labs 04/24/25 06:40 04/24/25 06:40 Labs: Laboratory Results - last 24 hr 04/23/25 04/23/25 04/24/25 13:51 14:19 06:40 MCV 88.6 89.3 MCH 28.9 28.3 MCHC 32.6 31.7 RDW 14.2 13.9 Plt Count 346 D 301 MPV 9.8 10.8 Immature Gran % (Auto) 0.5 H Neut % (Auto) 63.9 Lymph % (Auto) 25.8 [place] % (Auto) 6.9 Eos % (Auto) 2.1 Baso % (Auto) 0.8 Lymph # (Auto) 1.7 [place] # (Auto) 0.5 Eos # (Auto) 0.1 Baso # (Auto) 0.1 Abs Immat Gran (auto) 0.03 Absolute Neuts (auto) 4.2 Absolute Nucleated RBC 0.000 0.000 Nucleated RBC % (auto) 0.0 0.0 ESR 19 Anion Gap 13 11 L Estim Creat Clear Calc 112.6 124.1 Estimated GFR > 60 > 60 Random Glucose 111 86 Calcium 8.5 8.3 L Magnesium 1.8 Total Bilirubin 0.2 AST 26 ALT 25 Alkaline Phosphatase 114 C-Reactive Protein 0.81 H Total Protein 7.2 Albumin 3.7 Beta HCG, Quant < 2 Urine Color Dark Yellow Urine Appearance Clear Urine pH 6.0 Ur Specific [place] 1.020 Urine Protein Negative Urine Glucose (UA) Negative Urine Ketones Negative Urine Blood Negative Urine Nitrite Negative Ur Leukocyte Esterase Negative Urine RBC 0-2 Urine WBC 0-5 Ur Squamous Epith Cells 3-5 Urine Bacteria Trace Hyaline Casts 0-2 Urine Opiates Screen POSITIVE H Ur Buprenorphine Scrn Not Detected Ur Oxycodone Screen Not Detected Urine Methadone Screen Positive H Urine Fentanyl Screen POSITIVE H Ur Barbiturates Screen POSITIVE H Ur Phencyclidine Scrn Not Detected Ur Amphetamines Screen Not Detected U Benzodiazepines Scrn POSITIVE H Urine Cocaine Screen POSITIVE H U Marijuana (THC) Screen POSITIVE H Ethyl Alcohol < 10 Assessment and Plan (1) Suicide attempt: Status: Acute (2) Alcohol use disorder: Status: Chronic (3) Polysubstance abuse: Status: Acute Plan Patient is a 44-year-old female with a past medical history significant for hx abscess/cellulitis, polysubstance abuse, PTSD, depression, mild intermittent asthma and class 2 obesity, who presented to the ED after an attempt to drown herself in her tub today. suicide attempt by drowning - CXR negative - O2 sat 100% ORA, no respiratory distress - care team consult - 1 to 1 sitter - monitor vitals R foot cellulitis ?burn - pt reports green pus drainage for the past few days - continue IV vancomycin polysubstance abuse, alcohol use disorder - monitor CIWA - seizure precautions - on phenobarb procotol and received ativan in ED - thiamine, folic acid and multivitamin -UDS positive for opiates, methadone, fentanyl, barbiturates, cocaine and marijuana - addiction med consult>> restart methadone 30 mg with 10 mg p.r.n. tobacco use disorder - smoking cessation discussed - nicotine patch mild intermittent asthma, no acute exacerbation - continue home meds class 3 obesity - BMI 35.5 - weight loss encouraged full code VTE prophy: lovenox Reason for continued hospitalization: Ongoing opiates and alcohol withdrawal management Quality Stroke Does the patient have a stroke diagnosis?: No VTE Prior VTE?: No VTE Risk Level:: Medical - moderate - high VTE Device Contraindication: Treatment Not Indicated VTE Drug Contraindication: N/A - Med Ordered
[2025-04-24] MEDS: diazePAM 10 MG/2 ML CARTRIDGE 5 MG IVPUSH (10:29)
--- NOTE | 2025-04-24 10:37 | MHC.RECOVRN ---
TW met with pt in 461 to offer support regarding polysubstance use, per consult. On approach pt was laying in bed with blankets over face. Pt presented as restless w/ notable leg shuffling & diaphoretic. Pt arousable to name and reports feeling super anxious and all my joints hurt . Pt also endorses feeling sweaty . COWS assessment performed and pt scored 8. Pt agreeable to starting methadone while admitted. Pt has 1:1 staff at bedside for safety. Pt denies receiving methadone in the community. Pt last admitted 04/11 for similar presentation and noted to receive 30mg methadone daily with an additional 10mg ordered prn and was tolerated well. Pt was then increased to 40mg methadone daily. Provider Reji notified via tiger text regarding previous methadone administration and was agreeable to restart methadone. TW will follow up with pt to complete evaluation after her dose has been administered to allow for symptom management. TW availabe for further questions or concerns as needed.
[2025-04-24] MEDS: methADONE HCl 20 MG/2 ML ORAL.CONC 30 MG PO (12:14)
--- NOTE | 2025-04-24 12:16 | MHC.CM.PN ---
Addendum entered by Elvia Aguero 04/24/25 14:12: This CM made a second attempt to meet with pt, she remains asleep and unable to engage in conversation, sitter present in the room. Original Note: This CM attempted to meet with this pt, sitter present at bedside, pt asleep unable to awake and engage in conversation, will attempt to meet with pt at a later time.
--- NOTE | 2025-04-24 14:22 | MHC.RECOVRN ---
TW followed up with pt in room 461-1 to see how she was feeling after receiving methadone 30mg. Pt was laying in bed in no apparent distress, reparations even and unlabored. Pt easily awoke on approach. Pt reports feeling a lot better and stated shed just wanted to sleep. Pt educated on additional 10mg prn methadone if needed. Pt expressed her understanding and returned to resting. TW to follow up tomorrow and available for any questions or concerns.
[2025-04-24] MEDS: methADONE HCl 20 MG/2 ML ORAL.CONC 10 MG PO (17:51)
[2025-04-25 03:40] VITALS: BP 147/67; PULSE 56; RESP 18; TEMP 36.6; O2SAT 99
[2025-04-25 07:07] VITALS: BP 160/80; PULSE 60; RESP 15; TEMP 36.1; O2SAT 91
[2025-04-25 08:16] LABS: Hematocrit 33.7 % (37.0-47.0); Hemoglobin 11.1 g/dl (12.0-16.0); Mean Corpuscular HGB Conc 32.9 g/dl (31.0-35.0); Mean Corpuscular Hemoglobin 28.8 pg (27.0-33.0); Mean Corpuscular Volume 87.5 fL (80.0-98.0); NRBC Abs Auto 0.000 X10*3/uL (0.0-0.012); NRBC Pct Auto 0.0 /100WBC (0.0-0.2); Platelet Count 306 X10*3/uL (160-400); Red Blood Count 3.85 X10*6/uL (4.20-5.50); White Blood Count 6.9 X10*3/uL (4.8-10.8)
[2025-04-25 08:27] LABS: Anion Gap 12 (12-20); Blood Urea Nitrogen < 3 mg/dL (9-16); Calcium 8.2 mg/dL (8.4-10.2); Carbon Dioxide 24 mmol/L (22-29); Chloride 107 mmol/L (96-108); Creatinine Clr Calc Pharmacy 118.1; Estimated Glomerular Filt Rate > 60; Potassium 4.1 mmol/L (3.3-5.1); Sodium 139 mmol/L (135-145)
--- NOTE | 2025-04-25 08:30 | HO.PM.IMPN ---
Subjective Subjective Date of Service: 04/25/25 Interval History: c/o pain in the foot No other obvious sings of withdrawal Neurologic Neurologic: Denies confusion Psychiatric Psychiatric: Denies confusion Physical Exam Exam: Exam: General: AOx3, no acute distress Resp: CTA bilaterally, diminished throughout, no wheezing or crackles. CVS: S1, S2, RRR GI: +BS, NT, no distention Skin: Warm, dry. burn wound R dorsal foot, no increased warmth or active drainage, no surrounding erythema Neuro: Cranial nerves II-XII grossly intact bilaterally. Motor grossly intact bilaterally Extremities: No LE edema Psych: flat Vital Signs: Vital Signs: Last Vital Signs Temp 96.9 F 04/25/25 07:07 Pulse 60 04/25/25 07:07 Resp 15 04/25/25 07:07 BP 160/80 H 04/25/25 07:07 Pulse Ox 91 L 04/25/25 07:07 O2 Del Method Room Air 04/25/25 07:07 BMI result Body Mass Index 35.5 Const: General: No confusion Orientation/consciousness: No confusion Neuro: General: No confusion Objective Data Active Medications Acetaminophen (Acetaminophen 325 Mg Tablet) 975 mg PO Q6H PRN PRN Reason: Pain, Mild 1-3,fever,headache Calcium Carbonate (Calcium Carbonate 750 Mg Tab.Chew) 750 mg PO Q4H PRN PRN Reason: Heartburn Enoxaparin Sodium (Enoxaparin Sodium 40 Mg/0.4 Ml Syringe) 40 mg SUBCUT Q24H [facility] Last Admin: 04/24/25 08:46 Dose: 40 mg Documented By: EDWARDO Folic Acid (Folic Acid 1 Mg Tablet) 1 mg PO DAILY [facility] Stop: 04/27/25 08:59 Last Admin: 04/24/25 08:46 Dose: 1 mg Documented By: EDWARDO Vancomycin HCl 1,250 mg/ (Sodium Chloride) 250 mls @ 166.667 mls/hr IV Q12H [facility] Last Infusion: 04/24/25 23:11 Dose: Infused Documented By: NAT Magnesium Hydroxide (Milk Of Magnesia 30 Ml Oral.Susp) 30 ml PO DAILY PRN PRN Reason: Constipation Melatonin (Melatonin 3 Mg Tablet) 6 mg PO BEDTIME PRN PRN Reason: Insomnia Methadone HCl (Methadone Hcl 20 Mg/2 Ml Oral.Conc) 30 mg PO DAILY@0800 [facility] Last Admin: 04/24/25 12:14 Dose: 30 mg Documented By: EDWARDO Co-signed By: ALVARO Methadone HCl (Methadone Hcl 20 Mg/2 Ml Oral.Conc) 10 mg PO DAILY PRN PRN Reason: Opiate Withdrawal Last Admin: 04/24/25 17:51 Dose: 10 mg Documented By: ALVARO Co-signed By: NICOLAS Multivitamins/Vitamin C (Multivitamin Tablet) 1 tab PO DAILY [facility] Stop: 04/27/25 08:59 Last Admin: 04/24/25 08:47 Dose: 1 tab Documented By: EDWARDO Nicotine (Nicotine 21 Mg Patch.Td24) 21 mg TRANSDERMA DAILY [facility] Last Admin: 04/24/25 08:44 Dose: 21 mg Documented By: EDWARDO Ondansetron HCl (Ondansetron Hcl 4 Mg/2 Ml Vial) 4 mg IVPUSH Q8H PRN PRN Reason: Nausea and Vomiting Last Admin: 04/24/25 02:43 Dose: 4 mg Documented By: SAGRARIO Oxycodone HCl (Oxycodone Hcl Immed Release 5 Mg Tablet) 5 mg PO Q6H PRN PRN Reason: Pain, Severe (Pain Scale 7-10) Last Admin: 04/24/25 21:33 Dose: 5 mg Documented By: NAT Pharmacy Consult (Consult Rx Etoh Phenob Po Only) 1 each MISCELLANE ONCE PRN; Protocol PRN Reason: Consult order Pharmacy Consult (Consult Rx Vancomycin Dosing) 1 each MISCELLANE DAILY PRN PRN Reason: Consult order Phenobarbital (Phenobarbital 15 Mg Tablet) 45 mg PO BID [facility] Stop: 04/25/25 21:01 Last Admin: 04/24/25 21:41 Dose: 45 mg Documented By: NAT Phenobarbital (Phenobarbital 30 Mg Tablet) 30 mg PO BID [facility] Stop: 04/27/25 21:01 Phenobarbital (Phenobarbital 30 Mg Tablet) 30 mg PO DAILY [facility] Stop: 04/29/25 09:01 Sodium Chloride (0.9 % Sodium Chloride Flush 3 Ml Syringe) 3 ml IVFLUSH QSHIFT [facility] Last Admin: 04/24/25 21:40 Dose: 3 ml Documented By: NAT Thiamine HCl (Thiamine Hcl 100 Mg Tablet) 100 mg PO DAILY [facility] Stop: 04/27/25 08:59 Last Admin: 04/24/25 08:47 Dose: 100 mg Documented By: EDWARDO Tramadol HCl (Tramadol Hcl 50 Mg Tablet) 50 mg PO Q6H PRN PRN Reason: Pain, Moderate(Pain Scale 4-6) Labs 04/25/25 08:09 04/25/25 08:09 Labs: Laboratory Results - last 24 hr 04/25/25 04/25/25 07:07 08:09 MCV 87.5 MCH 28.8 MCHC 32.9 RDW 13.9 Plt Count 306 MPV 10.3 Absolute Nucleated RBC 0.000 Nucleated RBC % (auto) 0.0 Anion Gap 12 Estim Creat Clear Calc 118.1 Estimated GFR > 60 Random Glucose 89 Calcium 8.2 L Random Vancomycin 15.2 Assessment and Plan (1) Suicide attempt: Status: Acute (2) Alcohol use disorder: Status: Chronic (3) Polysubstance abuse: Status: Acute Plan Patient is a 44-year-old female with a past medical history significant for hx abscess/cellulitis, polysubstance abuse, PTSD, depression, mild intermittent asthma and class 2 obesity, who presented to the ED after an attempt to drown herself in her tub today. suicide attempt by drowning CXR negative O2 sat 100% ORA, no respiratory distress care team consult 1 to 1 sitter CARE consult when medically ready for DC R foot cellulitis ?burn pt reports green pus drainage for the past few days--see pic DC IV vancomycin, add Doxy polysubstance abuse, alcohol use disorder monitor CIWA seizure precautions on phenobarb procotol and received ativan in ED thiamine, folic acid and multivitamin UDS positive for opiates, methadone, fentanyl, barbiturates, cocaine and marijuana addiction med consult>> restart methadone 40 mg now, no PRN and clonidine as needed for withdrawal tobacco use disorder smoking cessation discussed nicotine patch mild intermittent asthma, no acute exacerbation continue home meds class 3 obesity BMI 35.5 weight loss encouraged full code VTE prophy: lovenox Reason for continued hospitalization: Ongoing opiates and alcohol withdrawal management Quality Stroke Does the patient have a stroke diagnosis?: No VTE Prior VTE?: No VTE Risk Level:: Medical - moderate - high VTE Device Contraindication: Treatment Not Indicated VTE Drug Contraindication: N/A - Med Ordered
[2025-04-25] MEDS: Nicotine 21 MG PATCH.TD24 TRANSDERMA (08:36)
[2025-04-25] MEDS: methADONE HCl 20 MG/2 ML ORAL.CONC 30 MG PO (08:36)
--- NOTE | 2025-04-25 09:51 | HE.PHANOTE ---
VANCO DOSE ADJUSTMENT BASED ON SCR AND TROUGH OF 15.2 DOSE CONTINUED AT 1250 Q 12H. NEXT LEVEL 04/26 @ 1900
--- NOTE | 2025-04-25 10:27 | MHC.CM.PN ---
IMM 04/25/25 DX SA Recent admission ETOH 04/15/25 Lives alone Independent with all functional mobility. No services in place. NO PCP, [facility] brochure provided. Declined offer to document a HCP. 1:[address] Recovery team has seen patient. Careteam eval for SA needed to eval for IPLOC. DP home self care, community resources provided by the recovery team May qualify for IPLOC. Patient will need assist with transport home.
[2025-04-25] MEDS: 0.9 % Sodium Chloride Flush 3 ML SYRINGE IVFLUSH ×3 (10:35→21:57)
[2025-04-25] MEDS: methADONE HCl 20 MG/2 ML ORAL.CONC 10 MG PO (11:00)
--- NOTE | 2025-04-25 11:59 | PHA.MEDREC ---
Pharmacy Consult ? Medication Reconciliation Pharmacy has completed the medication reconciliation. Spoke with patient in IM. Patient knew all medications.
[2025-04-25 12:00] VITALS: BP 152/74; PULSE 62; RESP 16; TEMP 36.6; O2SAT 98
--- NOTE | 2025-04-25 13:29 | PC.NURSE ---
Patient vomited shortly after eating lunch reassessed patient is still feeling nauseous will continue to monitor.
--- NOTE | 2025-04-25 13:38 | MHC.RECOVRN ---
Met with pt in to assess opioid withdrawal symptoms. Pt was sitting in bed with furrowed brow and reported I only received 30mg of methadone today, I thought they were going to give me 40mg ? Pt reports joint pain, irritability, restlessness and GI upset.? Pt received a total of 40mg methadone yesterday.? Provider denisa notified with request to increase pt to 40mg daily scheduled methadone w/ an additional 10mg methadone prn if needed for symptom management.? The provider ordered an additional 10mg of methadone for today.? TW will continue to monitor and is available for further questions or concerns,?
--- NOTE | 2025-04-25 13:55 | MHC.RECOVRN ---
Met with pt in to offer support & resources per consult to ACS for polysubstance and ETOH use following an attempt to drown herself in her tub today in which pt reports she had auditory hallucinations telling her to kill herself by jumping off a bridge or drowning. On approach pt was restless, irritable, and reports ongoing general joint and muscle discomfort and fatigue. She endorses high levels of anxiety and depression and currently denies CAH, VH or SI.? Pt is currently on phenobarb taper to manage ETOH withdrawal.? Pt reports using ?10 bundles a day? IV and 2 pints of vodka. She states also uses cocaine IN daily as well. She is unable to recall when she started or how long she has been using these substances ?I don;t know, it?s been years?. Pt also reports several overdoses which required the use of narcan but again, is unable to recall dates.? Pt was initiated on methadone during this admission and is currently receiving 30mg per day with 10mg prn ordered as needed for increased symptom management.? Pt denies receiving methadone in the community and states she did not follow up with [facility] after her last discharge.?? ACS team to continue to follow and offer support and resources if needed
[2025-04-25 15:22] VITALS: BP 167/91; PULSE 58; RESP 16; TEMP 36; O2SAT 97
[2025-04-25 19:40] VITALS: BP 132/66; PULSE 80; RESP 18; TEMP 36; O2SAT 99
[2025-04-25] MEDS: oxyCODONE HCl Immed Release 5 MG TABLET PO (22:02)
[2025-04-25 23:55] VITALS: BP 140/81; PULSE 58; RESP 18; TEMP 36; O2SAT 99
[2025-04-26 03:49] VITALS: BP 146/82; PULSE 60; RESP 18; TEMP 36.2; O2SAT 99
[2025-04-26] MEDS: oxyCODONE HCl Immed Release 5 MG TABLET PO ×3 (05:30→17:52)
[2025-04-26 06:28] LABS: Hematocrit 38.1 % (37.0-47.0); Hemoglobin 12.5 g/dl (12.0-16.0); Mean Corpuscular HGB Conc 32.8 g/dl (31.0-35.0); Mean Corpuscular Hemoglobin 28.9 pg (27.0-33.0); Mean Corpuscular Volume 88.0 fL (80.0-98.0); NRBC Abs Auto 0.000 X10*3/uL (0.0-0.012); NRBC Pct Auto 0.0 /100WBC (0.0-0.2); Platelet Count 314 X10*3/uL (160-400); Red Blood Count 4.33 X10*6/uL (4.20-5.50); White Blood Count 7.2 X10*3/uL (4.8-10.8)
[2025-04-26 06:49] LABS: Anion Gap 14 (12-20); Blood Urea Nitrogen < 3 mg/dL (9-16); Calcium 8.5 mg/dL (8.4-10.2); Carbon Dioxide 23 mmol/L (22-29); Chloride 107 mmol/L (96-108); Creatinine Clr Calc Pharmacy 116.2; Estimated Glomerular Filt Rate > 60; Potassium 3.8 mmol/L (3.3-5.1); Sodium 140 mmol/L (135-145)
[2025-04-26] MEDS: Nicotine 21 MG PATCH.TD24 TRANSDERMA (07:37)
[2025-04-26] MEDS: methADONE HCl 20 MG/2 ML ORAL.CONC 30 MG PO (07:37)
[2025-04-26 07:51] VITALS: BP 163/86; PULSE 56; RESP 18; TEMP 36.4; O2SAT 96
--- NOTE | 2025-04-26 09:41 | P.PNIM_ITS ---
Subjective Subjective Date of Service: 04/26/25 Interval History: She requesting more methadone d/t symptoms of withdrawal pain is better Physical Exam 2 Exam: Exam: General: AOx3, no acute distress Resp: CTA bilaterally, diminished throughout, no wheezing or crackles. CVS: S1, S2, RRR GI: +BS, NT, no distention Skin: Warm, dry. burn wound R dorsal foot, no increased warmth or active drainage, no surrounding erythema Neuro: Cranial nerves II-XII grossly intact bilaterally. Motor grossly intact bilaterally Extremities: No LE edema Psych: flat Vital Signs: Vital Signs: Last Vital Signs Temp 97.6 F 04/26/25 07:51 Pulse 56 04/26/25 07:51 Resp 18 04/26/25 07:51 BP 163/86 H 04/26/25 07:51 Pulse Ox 96 04/26/25 07:51 O2 Del Method Room Air 04/26/25 07:51 BMI result Body Mass Index 35.5 Objective Data Active Medications Acetaminophen (Acetaminophen 325 Mg Tablet) 975 mg PO Q6H PRN PRN Reason: Pain, Mild 1-3,fever,headache Albuterol Sulfate (Albuterol Sulfate 90 Mcg 8 Gm Inhaler) 2 puff INHALE Q4-6H PRN PRN Reason: Shortness Of Breath Or Wheezing Calcium Carbonate (Calcium Carbonate 750 Mg Tab.Chew) 750 mg PO Q4H PRN PRN Reason: Heartburn Chlorpromazine HCl (Chlorpromazine Hcl 100 Mg Tablet) 100 mg PO BID [facility] Clonazepam (Clonazepam 0.5 Mg Tablet) 0.5 mg PO TID [facility] Clonidine HCl (Clonidine Hcl 0.1 Mg Tablet) 0.1 mg PO TID PRN; Protocol PRN Reason: Opiate Withdrawal Last Admin: 04/26/25 09:35 Dose: 0.1 mg Documented By: JAMES Cyclobenzaprine HCl (Cyclobenzaprine Hcl 5 Mg Tablet) 5 mg PO TID PRN PRN Reason: Muscle Spasm Doxepin HCl (Doxepin Hcl 10 Mg Capsule) 20 mg PO BEDTIME [facility] Doxycycline Monohydrate (Doxycycline Monohydrate 100 Mg Capsule) 100 mg PO BID [facility] Last Admin: 04/26/25 07:39 Dose: Not Given Documented By: JAMES Non-Admin Reason: Patient Refused Enoxaparin Sodium (Enoxaparin Sodium 40 Mg/0.4 Ml Syringe) 40 mg SUBCUT Q24H [facility] Last Admin: 04/26/25 07:37 Dose: 40 mg Documented By: JAMES Folic Acid (Folic Acid 1 Mg Tablet) 1 mg PO DAILY [facility] Stop: 04/27/25 08:59 Last Admin: 04/26/25 07:39 Dose: 1 mg Documented By: JAMES Hydroxyzine HCl (Hydroxyzine Hcl 50 Mg Tablet) 50 mg PO BID PRN PRN Reason: anxiety/agitation Magnesium Hydroxide (Milk Of Magnesia 30 Ml Oral.Susp) 30 ml PO DAILY PRN PRN Reason: Constipation Melatonin (Melatonin 3 Mg Tablet) 6 mg PO BEDTIME PRN PRN Reason: Insomnia Methadone HCl (Methadone Hcl 20 Mg/2 Ml Oral.Conc) 40 mg PO DAILY@0800 [facility] Methadone HCl (Methadone Hcl 10 Mg Tablet) 10 mg PO ONCE ONE Stop: 04/26/25 09:38 Multivitamins/Vitamin C (Multivitamin Tablet) 1 tab PO DAILY [facility] Stop: 04/27/25 08:59 Last Admin: 04/26/25 07:39 Dose: 1 tab Documented By: JAMES Nicotine (Nicotine 21 Mg Patch.Td24) 21 mg TRANSDERMA DAILY [facility] Last Admin: 04/26/25 07:37 Dose: 21 mg Documented By: JAMES Ondansetron HCl (Ondansetron Hcl 4 Mg/2 Ml Vial) 4 mg IVPUSH Q8H PRN PRN Reason: Nausea and Vomiting Last Admin: 04/24/25 02:43 Dose: 4 mg Documented By: SAGRARIO Oxycodone HCl (Oxycodone Hcl Immed Release 5 Mg Tablet) 5 mg PO Q6H PRN PRN Reason: Pain, Severe (Pain Scale 7-10) Last Admin: 04/26/25 05:30 Dose: 5 mg Documented By: JAMES Pharmacy Consult (Consult Rx Etoh Phenob Po Only) 1 each MISCELLANE ONCE PRN; Protocol PRN Reason: Consult order Pramipexole Dihydrochloride (Pramipexole Di-Hcl 0.25 Mg Tablet) 0.25 mg PO BEDTIME [facility] Prazosin HCl (Prazosin Hcl 1 Mg Capsule) 6 mg PO BEDTIME [facility]; Protocol Quetiapine Fumarate (Quetiapine Fumarate 50 Mg Tablet) 50 mg PO DAILY [facility] Quetiapine Fumarate (Quetiapine Fumarate 300 Mg Tablet) 300 mg PO BEDTIME [facility] Sertraline HCl (Sertraline Hcl 50 Mg Tablet) 150 mg PO DAILY [facility] Sodium Chloride (0.9 % Sodium Chloride Flush 3 Ml Syringe) 3 ml IVFLUSH QSHIFT [facility] Last Admin: 04/26/25 07:42 Dose: Not Given Documented By: JAMES Non-Admin Reason: Previously Administered Thiamine HCl (Thiamine Hcl 100 Mg Tablet) 100 mg PO DAILY [facility] Stop: 04/27/25 08:59 Last Admin: 04/26/25 07:39 Dose: 100 mg Documented By: JAMES Tramadol HCl (Tramadol Hcl 50 Mg Tablet) 50 mg PO Q6H PRN PRN Reason: Pain, Moderate(Pain Scale 4-6) Last Admin: 04/25/25 12:08 Dose: 50 mg Documented By: AFSHINDONAsh Trazodone HCl (Trazodone Hcl 50 Mg Tablet) 50 mg PO BEDTIME [facility] Labs 04/26/25 05:50 04/26/25 05:50 Labs: Laboratory Results - last 24 hr 04/26/25 05:50 MCV 88.0 MCH 28.9 MCHC 32.8 RDW 13.7 Plt Count 314 MPV 10.8 Absolute Nucleated RBC 0.000 Nucleated RBC % (auto) 0.0 Anion Gap 14 Estim Creat Clear Calc 116.2 Estimated GFR > 60 Random Glucose 86 Calcium 8.5 Assessment and Plan (1) Suicide attempt: Status: Acute (2) Alcohol use disorder: Status: Chronic (3) Polysubstance abuse: Status: Acute Plan Patient is a 44-year-old female with a past medical history significant for hx abscess/cellulitis, polysubstance abuse, PTSD, depression, mild intermittent asthma and class 2 obesity, who presented to the ED after an attempt to drown herself in her tub today. suicide attempt by drowning CXR negative O2 sat 100% ORA, no respiratory distress care team consult 1 to 1 sitter CARE consult when medically ready for DC R foot cellulitis ?burn pt reports green pus drainage for the past few days, bony destruction on xray--see pic IV vancomycin-->Doxy Alcohol use d/o, presently no sings of withdrawal stop Phenobarbitasl Opioid use disorder continue methadone at 40 mg daiy, addiction med following mood disorder restarted on home meds including seroquel, thorazine, prazosin, clonidine, klonopin, doxepin, sertraline, mirapex and hydroxyzine She is on alarmingly too many meds in conjuction with ilicit substance use and methadone, Psych to review the approprioatness of all these meds tobacco use disorder smoking cessation discussed nicotine patch mild intermittent asthma, no acute exacerbation continue home meds class 3 obesity BMI 35.5 weight loss encouraged full code VTE prophy: lovenox Reason for continued hospitalization: Ongoing opiates and alcohol withdrawal management Quality Stroke Does the patient have a stroke diagnosis?: No VTE Prior VTE?: No VTE Risk Level:: Medical - moderate - high VTE Device Contraindication: Treatment Not Indicated VTE Drug Contraindication: N/A - Med Ordered
[2025-04-26 12:00] VITALS: BP 144/82; PULSE 64; RESP 18; TEMP 36.4; O2SAT 98
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
[2025-04-26 15:40] VITALS: BP 118/57; PULSE 82; RESP 18; TEMP 36.6; O2SAT 95
[2025-04-26] MEDS: 0.9 % Sodium Chloride Flush 3 ML SYRINGE IVFLUSH ×2 (16:05→20:19)
[2025-04-26 19:30] VITALS: BP 127/76; PULSE 73; RESP 18; TEMP 36.2; O2SAT 98
[2025-04-26 23:45] VITALS: BP 121/59; PULSE 81; RESP 18; TEMP 35.7; O2SAT 97
[2025-04-27 03:41] VITALS: BP 140/74; PULSE 68; RESP 18; TEMP 36.1; O2SAT 99
[2025-04-27 07:16] VITALS: BP 132/83; PULSE 66; RESP 16; TEMP 36.6; O2SAT 100
--- NOTE | 2025-04-27 07:57 | MHC.RECOVRN ---
Met with pt in f/u on 04/26 to discussed withdrawal symptoms and PRN use. Pt appeared comfortable and was conversing with her 1:1 sitter. Pt c/o foot and back pain, however chart review revealed that pt was not utilizing her PRNs tramadol and oxycodone. Pt encouraged to request those when she needs them. Pt stating she wants her methadone increased as she still feels to be in withdrawals. Pt encouraged to use her PRNs and will f/u to see if there's any improved. Methadone increase will be discussed with provider. Denies other questions or concerns at this time.
[2025-04-27] MEDS: methADONE HCl 20 MG/2 ML ORAL.CONC 40 MG PO (08:12)
[2025-04-27] MEDS: Nicotine 21 MG PATCH.TD24 TRANSDERMA (08:13)
[2025-04-27] MEDS: 0.9 % Sodium Chloride Flush 3 ML SYRINGE IVFLUSH ×3 (08:13→21:17)
[2025-04-27] MEDS: oxyCODONE HCl Immed Release 5 MG TABLET PO ×3 (08:21→21:15)
[2025-04-27 11:43] VITALS: BP 109/58; PULSE 76; RESP 14; TEMP 36.4; O2SAT 98
--- NOTE | 2025-04-27 11:48 | MHC.CARE ---
Pt will be a dual DX bedsearch.
--- NOTE | 2025-04-27 14:00 | MHC.RECOVRN ---
Met with pt in 376 to follow up and provide support.? Pt awake, lying in bed on side and easily engages in conversation. No further adjustments have been made in her methadone. T/W provided education to pt. on comfort meds available and what they are for. T/W provided support and validation. Pt is still reporting W/D sx but was able to participate in conversation with t/w and although she did not agree with the rationale as to why she could not receive an increase in methadone, she verbalized understanding. Pt will be a dual bed search. Pt denies other concerns at this time.? ACS available as needed.
[2025-04-27 16:00] VITALS: BP 120/58; PULSE 75; RESP 18; TEMP 36.1; O2SAT 98
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
[2025-04-27 20:00] VITALS: BP 134/70; PULSE 81; RESP 18; TEMP 36.5; O2SAT 98
[2025-04-27 23:37] VITALS: BP 128/85; PULSE 72; RESP 18; TEMP 36.2; O2SAT 99
--- NOTE | 2025-04-28 | ECG_ITS ---
Test Reason : CP Blood Pressure : */* mmHG Vent. Rate : 90 BPM Atrial Rate : 90 BPM P-R Int : 132 ms QRS Dur : 80 ms QT Int : 378 ms P-R-T Axes : 70 56 70 degrees QTcB Int : 462 ms Normal sinus rhythm Nonspecific T wave abnormality Prolonged QT Abnormal ECG When compared with ECG of 11-Apr-2025 12:20, Nonspecific T wave abnormality now evident in Lateral leads Referred By: Kedar Ball Electronically Signed By: Zechariah Marrero
[2025-04-28 03:43] VITALS: BP 139/75; PULSE 67; RESP 18; TEMP 36.4; O2SAT 99
[2025-04-28 07:17] VITALS: BP 134/60; PULSE 70; RESP 16; TEMP 36; O2SAT 99
[2025-04-28] MEDS: Nicotine 21 MG PATCH.TD24 TRANSDERMA (07:59)
[2025-04-28] MEDS: oxyCODONE HCl Immed Release 5 MG TABLET PO ×2 (08:00→13:43)
[2025-04-28] MEDS: 0.9 % Sodium Chloride Flush 3 ML SYRINGE IVFLUSH (08:00)
[2025-04-28] MEDS: methADONE HCl 20 MG/2 ML ORAL.CONC 40 MG PO (08:00)
--- NOTE | 2025-04-28 10:54 | MHC.CM.PN ---
Patient medically cleared for dc to dual dx [facility]. Per [facility] admissions, patient accepted @ [facility]. BLS transport scheduled for 2pm. RN aware.
[2025-04-28 12:42] VITALS: BP 100/52; PULSE 82; RESP 16; TEMP 36.4; O2SAT 97
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
== END 2025-04-28 13:55 | DRG 603 ==
LOC: HO.ED 15:41 → HO.EDOVER 20:52 → HO.IMC 23:34 → HO.S3 04-26 02:49
PROVIDERS: Physician Assistant; Admitting Provider Student in an Organized Health Care Education/Training Program; Emergency Provider Emergency Medicine; Visit Provider Internal Medicine
DX: L03.115 Cellulitis of right lower limb (principal); F11.20 Opioid dependence, uncomplicated; F17.210 Nicotine dependence, cigarettes, uncomplicated; F19.10 Other psychoactive substance abuse, uncomplicated; Z71.6 Tobacco abuse counseling; T25.031A Burn of unspecified degree of right toe(s) (nail), initial encounter; F25.0 Schizoaffective disorder, bipolar type; F43.10 Post-traumatic stress disorder, unspecified; T31.0 Burns involving less than 10% of body surface; F10.90 Alcohol use, unspecified, uncomplicated; X08.8XXA Exposure to other specified smoke, fire and flames, initial encounter; E66.813 Obesity, class 3; Z68.35 Body mass index [BMI] 35.0-35.9, adult; X71.0XXA Intentional self-harm by drowning and submersion while in bathtub, initial encounter; J45.20 Mild intermittent asthma, uncomplicated; Z79.899 Other long term (current) drug therapy
CPT/HCPCS: 36415; 71045; 73620; 80048; 80053; 80202; 80307; 81001; 83735; 84702; 85025; 85027; 85652; 86140; 93005; 99285; J0692; J1650; J2405; J2560; J3360; J3374; J3411; S9485

== ENCOUNTER → 2025-04-23 13:34 | Outpatient (BNV) | payer MEDICARE, MEDICAID, SELFPAY | PROVIDERS: Emergency Provider Emergency Medicine; Visit Provider Radiology Diagnostic Radiology | DX: T14.91XA Suicide attempt, initial encounter (principal); X13.0XXA Inhalation of steam and other hot vapors, initial encounter; R22.41 Localized swelling, mass and lump, right lower limb | CPT/HCPCS: 73620 ==

== ENCOUNTER 2025-04-23 18:53 | Outpatient (BNV) | payer MEDICARE, MEDICAID, SELFPAY | END 2025-04-28 11:08 | PROVIDERS: Admitting Provider Student in an Organized Health Care Education/Training Program; Emergency Provider Emergency Medicine; Visit Provider Internal Medicine Cardiovascular Disease | DX: R94.31 Abnormal electrocardiogram [ECG] [EKG] (principal); R07.9 Chest pain, unspecified | CPT/HCPCS: 93010 ==

== ENCOUNTER → 2025-04-23 18:53 | Outpatient (BNV) | payer MEDICARE, MEDICAID, SELFPAY | PROVIDERS: Admitting Provider Student in an Organized Health Care Education/Training Program; Emergency Provider Emergency Medicine; Visit Provider Psychiatry & Neurology Psychiatry | DX: F25.0 Schizoaffective disorder, bipolar type (principal); T14.91XA Suicide attempt, initial encounter; F10.90 Alcohol use, unspecified, uncomplicated; F43.11 Post-traumatic stress disorder, acute; S91.301A Unspecified open wound, right foot, initial encounter | CPT/HCPCS: 99233 ==

== ENCOUNTER → 2025-04-23 18:53 | Outpatient (BNV) | payer MEDICARE, MEDICAID, SELFPAY | PROVIDERS: Admitting Provider Student in an Organized Health Care Education/Training Program; Emergency Provider Emergency Medicine; Visit Provider Student in an Organized Health Care Education/Training Program | DX: T14.91XA Suicide attempt, initial encounter (principal); F10.90 Alcohol use, unspecified, uncomplicated; F19.10 Other psychoactive substance abuse, uncomplicated | CPT/HCPCS: 99223; 99231; 99232; 99239 ==

== ENCOUNTER 2025-05-30 10:41 | Inpatient (IN) | payer MEDICARE, MEDICAID, SELFPAY ==
--- NOTE | 2025-05-30 | ECG_ITS ---
Test Reason : CP Blood Pressure : */* mmHG Vent. Rate : 57 BPM Atrial Rate : 57 BPM P-R Int : 132 ms QRS Dur : 78 ms QT Int : 462 ms P-R-T Axes : 18 73 57 degrees QTcB Int : 449 ms Sinus bradycardia Otherwise normal ECG When compared with ECG of 28-Apr-2025 11:08, Vent. rate has decreased by 33 bpm Nonspecific T wave abnormality no longer evident in Inferior leads Nonspecific T wave abnormality no longer evident in Lateral leads Referred By: Generic ED Physician Electronically Signed By: MICHAEL MOREL
--- NOTE | ~2025-05-30 | US_ITS ---
EXAMINATION: US ABDOMEN LIMITED CLINICAL INFORMATION: Abdominal pain. Umbilical hernia.. COMPARISON: Correlated to CT abdomen and pelvis dated January 31, 2025. TECHNIQUE: Real-time ultrasound of the region of concern in the umbilical area with a curvilinear and linear transducer using grayscale and color Doppler technique. FINDINGS: There is a 7 x 3 x 6 cm lobulated isoechoic abnormality in the region of concern with trace of flow on color Doppler interrogation. There is no compressibility or reduction. US/US abdomen limited IMPRESSION: 7 x 3 x 6 cm lobulated masslike abnormality in the umbilical/infraumbilical without compression or reduction. Electronically signed by: Girish Espinoza MD 06/09/2025 03:36 PM EDT
[2025-05-30 10:43] VITALS: BP 153/97; BP 163/95; PULSE 61; PULSE 67; RESP 16; TEMP 36.7; O2SAT 96; O2SAT 98; BMI 32.0
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
--- NOTE | 2025-05-30 11:35 | MHC.EDTECH ---
belongings that included cellphone, white shirt, printed black leggings and sandals locked in [employer] [place] located on shelf 2
[2025-05-30 11:52] LABS: MANUAL DIFF FLAG NO
[2025-05-30 11:55] LABS: Hematocrit 39.3 % (37.0-47.0); Hemoglobin 12.9 g/dl (12.0-16.0); Imm Gran Abs Auto 0.07 X10*3/uL (0.00-0.03); Imm Gran Pct Auto 0.8 % (0.0-0.4); Lymphocytes Absolute Auto 2.2 X10*3/uL (1.2-4.9); Mean Corpuscular HGB Conc 32.8 g/dl (31.0-35.0); Mean Corpuscular Hemoglobin 28.4 pg (27.0-33.0); Mean Corpuscular Volume 86.4 fL (80.0-98.0); NRBC Abs Auto 0.000 X10*3/uL (0.0-0.012); NRBC Pct Auto 0.0 /100WBC (0.0-0.2); Platelet Count 283 X10*3/uL (160-400); Red Blood Count 4.55 X10*6/uL (4.20-5.50); White Blood Count 8.9 X10*3/uL (4.8-10.8)
[2025-05-30 12:00] LABS: INTERNATIONAL NORM RATIO 1.0 (0.9-1.1); Prothrombin Time 11.2 SEC (10.9-12.4)
--- OUTSIDE RECORDS SUMMARY | 2025-05-30 12:11 | XMS_ITS | Clinical Summary ---
Author Organization [employer] Address [address] [place] [address] Care Team Providers Care Hardware Sales Assistant Name Role Phone Heavenly Delgadillo MD Primary Care Provider [phone] Medications * This document contains information received [...] complete this topic Insurance STANDARD Care Teams Hardware Sales Assistant Relationship Specialty Start Date End Date Heavenly Delgadillo MD [address] [place] [id number] PCP - General Internal Medicine 05/11/24
--- OUTSIDE RECORDS SUMMARY | 2025-05-30 12:11 | XMS_ITS | Clinical Summary ---
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 cloNIDine (CATAPRES) 0.1 mg tablet Take 1 tablet (0.1 mg total) by mouth every 4 hours as needed (restlessness). 90 tablet 04/05/20 25 Active cyclobenzaprine (FLEXERIL) 10 mg tablet Take 1 tablet (10 mg total) by mouth 3 times a day as needed for muscle spasms. 90 tablet 04/05/20 25 Active hydrOXYzine HCL (ATARAX) 50 mg tablet Take 1 tablet (50 mg total) by mouth 4 times a day as needed for anxiety. 90 tablet 04/05/20 25 Active lidocaine (LIDODERM) 5% patch Apply 1 patch topically to the affected area once a day. Remove and discard patch within 12 hours or as directed. 30 patch 04/06/20 25 Active QUEtiapine (SEROquel) 300 mg tablet Take 1 tablet (300 mg total) by mouth nightly. 30 tablet 04/05/20 25 Active QUEtiapine (SEROquel) 25 mg tablet Take 1 tablet (25 mg total) by mouth 3 times a day as needed (Anxiety, panic). 90 tablet 04/05/20 25 Active albuterol (PROAIR HFA,VENTOLIN HFA) 90 mcg inhaler Inhale 2 puffs (180 mcg total) by mouth every 4 hours as needed for wheezing or shortness of breath. Use with spacer. 0.0054 g 04/05/20 25 Active multivitamin tablet Take 1 tablet by mouth once a day. 30 tablet 04/06/20 25 Active propranoloL (INDERAL) 40 mg tablet Take 1 tablet (40 mg total) by mouth every 12 hours. 60 tablet 04/05/20 25 Active sertraline (ZOLOFT) 50 mg tablet Take 3 tablets (150 mg total) by mouth once a day. 90 tablet 04/06/20 25 Active thiamine mononitrate (VITAMIN B1) 100 mg tablet Take 1 tablet (100 mg total) by mouth once a day. 30 tablet 04/06/20 25 Active nicotine (NICODERM CQ) 14 mg/[address] 1 patch on the skin every 24 hours. 30 patch 04/05/20 25 Active melatonin 3 mg tablet Take 1 tablet (3 mg total) by mouth nightly. 30 tablet 04/05/20 25 025 buprenorphine-n aloxone (Suboxone) 4-[address] 1 Film (4 mg of buprenorphine total) under the tongue 3 times a day. 90 Film 04/06/20 25 025 Active Problems Problem Noted Date Diagnosed Date Complex posttraumatic stress disorder 04/06/2025 Major depressive disorder, r ecurrent severe without psychotic features 04/06/2025 Panic disorder with agoraphobia 04/06/2025 Opioid use disorder 04/06/2025 Resolved Problems Problem Noted Date Diagnosed Date Resolved Date Major depressive disorder wi th psychotic features 03/21/2025 04/05/2025 Social History Tobacco Use Types Packs/Day Years Used Date Smoking Tobacco: Never Smokeless Tobacco: Never Tobacco Cessation:Counseling Given: No Alcohol Use Standard Drinks/Week Comments Yes 0 (1 standard drink = 0.6 oz pur e alcohol) [facility] Utilities Answer Date Recorded In the past 12 months has th e electric, gas, oil, or water company threatened to shut off services in your home? Yes 03/25/2025 Hunger Vital Sign Answer Date Recorded Within the past 12 months, y ou worried that your food would run out before you got the money to buy more. Often true 03/25/20 25 Within the past 12 months, t he food you bought just didn't last and you didn't have money to get more. Often true 03/25/2025 Transportation Answer Date Recorded In the past 12 months, has l ack of reliable transportation kept you from medical appointments, meetings, work or from getting things needed for daily living? Yes 03/25/2025 Housing Answer Date Recorded Housing Risk Low Not on file 03/25/2025 Housing Risk Medium Not on file 03/25/2025 Housing Risk High 1 03/25/2025 What is your living situation today? [facility] 03/25/2025 Comments No Sex and Gender Information Value Date Recorded Sex Assigned at Female 03/20/2025 10:11 PM EDT Legal Sex Female 7:15 AM EDT Gender Identity Female 03/20/2025 10:11 PM EDT Sexual Orientation Not on file Last Filed Vital Signs Vital Sign Reading Time Taken Comments Blood Pressure 102/66 04/06/2025 6:43 AM EDT Pulse 60 04/06/2025 6:43 AM EDT Temperature 36.9 C (98.5 F) 04/06/2025 6:43 AM EDT Respiratory Rate 16 04/06/2025 6:43 AM EDT Oxygen Saturation 98% 04/06/2025 6:43 AM EDT Inhaled Oxygen Concentration - - Weight 74.1 kg (163 lb 6.4 oz) 03/22/2025 12:53 AM EDT Height 154.9 cm (5' 1 ) 03/22/2025 12:53 AM EDT Body Mass Index 30.87 03/22/2025 12:53 AM EDT Plan of Treatment Health Maintenance Due Date Last Done Comments Cologuard 1979 Colon Cancer Screening 1979 Colonoscopy 1979 FOBT / Fit Test 1979 HIV Screening 1979 Sigmoidoscopy 1979 Hepatitis B Vaccines (1 of 3 - 19+ 3-dose series) 1998 DTaP,Tdap,and Td Vaccines (1 - Tdap) 2001 COVID-19 Vaccine (2023-2 5 season) 2024 Alcohol/Substance Use Screening 10/07/2024 Influenza Vaccine (#1) 2025 5, 09/19/2012 RSV Vaccine (60+ years old a nd patients) (1 - 1-dose 75+ series) 2054 Pneumococcal Vaccine: Pediatric (0-5 Years) and At-Risk Patients (6-50 Years) Aged Out 09/19/2012 No longer eligible based on patient's age to complete this topic Procedures * Due to [place] ison furniture law, this organization might not be sharing negative HIV tests. Procedure Name Priority Date/Time Associated Diagnosis Comments ECG 12-LEAD Routine 03/26/2025 2:50 PM EDT HCG QUALITATIVE, URINE Routine 7:07 AM EDT FOLATE Routine 03/22/2025 6:25 AM EDT VITAMIN B12 Routine 03/22/2025 6:25 AM EDT VITAMIN B12 Routine 03/22/2025 6:25 AM EDT HEMOGLOBIN A1C Routine 03/22/2025 6:25 AM EDT TSH REFLEX FREE T4 Routine 03/22/2025 6: 25 AM EDT LIPID PANEL Routine 03/22/2025 6:25 AM EDT CBC AUTO DIFFERENTIAL Routine 03/22/2025 6:25 AM EDT COMPREHENSIVE METABOLIC PANEL Routine 03/22/2025 6:25 AM EDT HEART & VASCULAR - SCANNED 03/22/2025 RAPID COVID-19 RNA FOR SURVEILLANCE (ED ONLY) STAT 03/20/2025 8:40 PM EDT from Last 3 Months Results * Due to [place] state law, this organization might not be sharing negative HIV tests. * ECG 12 lead For Preop? No (03/26/2025 2:50 PM EDT) Ventricular Rate EKG 78 BPM MUSE EKG Atrial Rate 78 BPM MUSE EKG VT Interval 158 ms MUSE EKG QRS Interval 84 ms MUSE EKG QT Interval 422 ms MUSE EKG QTC Interval 481 ms MUSE EKG P Balm 67 degrees MUSE EKG R Balm 69 degrees MUSE EKG T Wave Balm 53 degrees MUSE EKG 03/26/2025 2:50 PM EDT 03/29/2025 1:52 PM EDT Impressions MUSE EKG - 03/29/2025 1:52 PM EDT NORMAL SINUS RHYTHM POOR ' r ' WAVE PROGRESSION WHEN COMPARED WITH ECG OF 11-AUG-2005 06:47, NO SIGNIFICANT CHANGE Confirmed by Ji Sánchez ([id number]) on 03/29/2025 1:52:11 PM Narrative Procedure Note Ji Sánchez MD - 03/29/2025 IMPRESSION: NORMAL SINUS RHYTHM POOR ' r ' WAVE PROGRESSION WHEN COMPARED WITH ECG OF 11-AUG-2005 06:47, NO SIGNIFICANT CHANGE Confirmed by Ji Sánchez ([id number]) on 03/29/2025 1:52:11 PM David Carcamo MD ECG ORDERABLES Final Resul t Performing Organization Address City/[facility] Co de Phone Number MUSE EKG * HCG Qualitative, Urine (03/22/2025 7:07 AM EDT) HCG Qualitative, Urine Negative Negative [place] [facility] 03/22/2025 7:50 AM EDT [facility] Comment: hCG may be negative in early . Suggest repeat testing in 2-4 days if clinically indicated. The results of this test should be interpreted with the patient's clinical presentation. Urine Urine specimen collection, clean catch / Unknown 03/22/2025 7:07 AM EDT 03/22/2025 7:07 AM EDT David Carcamo MD LAB URINE ORDERABLES Final Result Performing Organization Address City/[facility] Co de Phone Number [facility] [address] [place] [phone], * TSH Reflex Free T4 (03/22/2025 6:25 AM EDT) TSH 1.040 0.280 - 3.890 uIU/mL 03/22/2025 7:20 AM EDT [facility] Comment: Females: 1st trimester 0.150-4.000 IU/mL 2nd trimester 0.310-4.170 IU/mL 3rd trimester 0.380-4.150 IU/mL Blood Structure of peripheral vein / Unknown Venipuncture / Unknown 03/22/2025 6:25 AM EDT 03/22/2025 6:32 AM EDT us David Carcamo MD LAB BLOOD ORDERABLES Final Result [facility] [address] [place] [address], [place] * CBC Auto Differential (03/22/2025 6:25 AM EDT) WBC 6.2 3.8 - 10.8 10*3/uL 03/22/2025 6:40 AM EDT [facility] RBC 4.44 3.80 - 5.10 10*6/uL 03/22/2025 6:40 AM EDT [facility] Hemoglobin 12.6 11.7 - 15.5 g/dL 03/22/2025 6:40 AM EDT [facility] Hematocrit 39.2 35.0 - 45.0 % 03/22/2025 6:40 AM EDT [facility] MCV 88.3 80.0 - 100.0 fL 03/22/2025 6:40 AM EDT [facility] MCH 28.4 27.0 - 33.0 pg 03/22/2025 6:40 AM EDT [facility] MCHC 32.1 32.0 - 36.0 g/dL 03/22/2025 6:40 AM EDT [facility] RDW 13.4 11.0 - 15.0 % 03/22/2025 6:40 AM EDT [facility] Platelets 226 140 - 400 10*3/uL 03/22/2025 6:40 AM EDT [facility] MPV 11.4 7.5 - 12.5 fL 03/22/2025 6:40 AM EDT [facility] Neutrophil % 46.1 % 03/22/2025 6:40 AM EDT [facility] Immature Grans % 0.3 0.0 - 0.9 % 03/22/2025 6:40 AM EDT [facility] Lymphocyte % 37.7 % 03/22/2025 6:40 AM EDT [facility] Monocyte % 9.5 % 03/22/2025 6:40 AM EDT [facility] Eosinophil % 5.8 % 03/22/2025 6:40 AM EDT [facility] Basophil % 0.6 % 03/22/2025 6:40 AM EDT [facility] Neutrophil # 2.88 1.50 - 7.80 10*3/uL 03/22/2025 6:40 AM EDT [facility] Immature Grans # <0.03 <=0.03 10*3/uL 03/22/2025 6:40 AM EDT [facility] Lymphocyte # 2.40 0.85 - 3.90 10*3/uL 03/22/2025 6:40 AM EDT [facility] Monocyte # 0.60 0.20 - 0.95 10*3/uL 03/22/2025 6:40 AM EDT [facility] Eosinophil # 0.40 0.02 - 0.50 10*3/uL 03/22/2025 6:40 AM EDT [facility] Basophil # <0.03 0.00 - 0.20 10*3/uL 03/22/2025 6:40 AM EDT [facility] nRBC % 0.0 /100 WBCs 03/22/2025 6:40 AM EDT [facility] nRBC # <0.01 <0.01 10*3/uL 03/22/2025 6:40 AM EDT [facility] Blood Structure of peripheral vein / Unknown Venipuncture / Unknown 03/22/2025 6:25 AM EDT 03/22/2025 6:32 AM EDT David Carcamo MD LAB BLOOD ORDERABLES Final Result Performing Organization Address City/State/[facility] Co de Phone Number [facility] [address] [place] [address], [place] * Hemoglobin A1c (03/22/2025 6:25 AM EDT) Hemoglobin A1C 5.4 <5.7 % 03/22/2025 12:02 PM EDT [facility] Comment: For the purpose of screening for the presence of diabetes: <5.7% Consistent with the absence of diabetes 5.7-6.4% Consistent with increased risk for diabetes (prediabetes) > or =6.5% Consistent with diabetes This assay result is consistent with a decreased risk of diabetes. Currently, no consensus exists regarding use of hemoglobin A1c for diagnosis of diabetes in children. According to [place] Diabetes Association (ADA) guidelines, hemoglobin A1c <7.0% represents optimal control in non- diabetic patients. Different metrics may apply to specific patient populations. Standards of Medical Care in Diabetes(ADA). eAG (MG/DL) 108 mg/dL 03/22/2025 12:02 PM EDT [facility] eAG (MMOL/L) 6.0 mmol/L 03/22/2025 12:02 PM EDT [employer] [facility] Blood Structure of peripheral vein / Unknown Venipuncture / Unknown 03/22/2025 6:25 AM EDT 03/22/2025 6:32 AM EDT [facility] - 03/22/2025 12:02 PM EDT [facility] Received Date:[id number] us David Carcamo MD LAB BLOOD ORDERABLES Final Result [facility] [address] [facility] [address], [place] [address], [place] [phone] [facility] [address] [facility] [address], [place] [address], [place] [phone] * Folate (03/22/2025 6:25 AM EDT) Folate 16.5 4.8 - 24.2 ng/mL 03/22/2025 7:20 AM EDT [facility] Blood Structure of peripheral vein / Unknown Venipuncture / Unknown 03/22/2025 6:25 AM EDT 03/22/2025 6:32 AM EDT us David Carcamo MD LAB BLOOD ORDERABLES Final Result Performing Organization Address City/[facility]/ZIP Co de Phone Number [facility] [address] [place] [phone], [place] * Vitamin B12 (03/22/2025 6:25 AM EDT) Vitamin B12 421 232 - 1,245 pg/mL 03/22/2025 7:20 AM EDT [facility] Blood Structure of peripheral vein / Unknown Venipuncture / Unknown 03/22/2025 6:25 AM EDT 03/22/2025 6:32 AM EDT us David Carcamo MD LAB BLOOD ORDERABLES Final Result [facility] [address] [place] [address], [place] * (ABNORMAL) Lipid panel - Fasting (03/22/2025 6:25 AM EDT) Cholesterol 203(H) <=199 mg/dL 03/22/2025 7:20 AM EDT [facility] Triglycerides 147 <=149 mg/dL 03/22/2025 7:20 AM EDT [facility] Cholesterol, HDL 56 40 - 59 mg/dL 03/22/2025 7:20 AM EDT [facility] Cholesterol, Non-HDL 147 mg/dL 03/22/2025 7:20 AM EDT [facility] LDL Cholesterol 118(H) <100 mg/dL 03/22/2025 7:20 AM EDT [facility] VLDL 29.4 mg/dL 03/22/2025 7:20 AM EDT [facility] Cholesterol/HDL Ratio 3.6 <5.0 03/22/2025 7:20 AM EDT [facility] Blood Structure of peripheral vein / Unknown Venipuncture / Unknown 03/22/2025 6:25 AM EDT 03/22/2025 6:32 AM EDT Narrative [facility] - 03/22/2025 7:20 AM EDT Adult Treatment Panel III Guidelines of NCEP 2001 Category: Total Cholesterol (mg/dL) Desirable <200 Borderline High 200-239 High >=240 Category: LDL Cholesterol (mg/dL) Optimal <100 Near Optimal/Above Optimal 100-129 Borderline High 130-159 High 160-189 Very High >=190 Category: HDL Cholesterol (mg/dL) Low <40 High >=60 NCEP's Expert Panel on Blood Cholesterol in Children and Adolescents Category: Total Cholesterol (mg/dL) Desirable <170 Borderline High 170-199 High >=200 Category: LDL Cholesterol (mg/dL) Desirable <110 Borderline High 110-129 High >=130 us David Carcamo MD LAB BLOOD ORDERABLES Final Result [facility] [address] [place] [address], * (ABNORMAL) Comprehensive Metabolic Panel (03/22/2025 6:25 AM EDT) NA 137 135 - 145 mmol/L 03/22/2025 7:20 AM EDT [facility] K 5.0 3.5 - 5.3 mmol/L 03/22/2025 7:20 AM EDT [facility] Cl 100 98 - 107 mmol/L 03/22/2025 7:20 AM EDT [facility] CO2 25 22 - 32 mmol/L 03/22/2025 7:20 AM EDT [facility] Anion Gap 12 5 - 15 03/22/2025 7:20 AM EDT [facility] Glucose 95 65 - 99 mg/dL 03/22/2025 7:20 AM ED [facility] Creatinine 0.80 0.50 - 1.20 mg/dL 03/22/2025 7:20 AM Auctelia [facility] Calcium 9.4 8.6 - 10.5 mg/dL 03/22/2025 7:20 AM [employer]elia [facility] Total Protein 7.4 6.0 - 8.0 g/dL 03/22/2025 7:20 AM [facility]ucteliaT [facility] Albumin 3.8 3.5 - 5.2 g/dL 03/22/2025 7:20 AM [employer] Bilirubin, Total 0.2 0.2 - 1.2 mg/dL 03/22/2025 7:20 AM ED [facility] Alkaline Phosphatase 109 35 - 129 U/L 03/22/2025 7:20 AM EDT [facility] AST 25 10 - 40 U/L 03/22/2025 7:20 AM EDT [facility] ALT 13 10 - 40 U/L 03/22/2025 7:20 AM [facility]ucteliaT [facility] BUN 12 7 - 23 mg/dL 03/22/2025 7:20 AM ED [facility] eGFR >90 >=60 mL/min/1. 73m2 03/22/2025 7:20 AM EDT [facility] Comment:The estimated glomer ular filtration rate (eGFR) is calculated using a new formula developed by the NKF-ASN task force to eliminate race-based correction factors. The new formula uses serum/plasma creatinine, age, and gender to determine eGFR. A value below 60mls/min might indicate kidney disease and will be flagged. For additional information, see Wolfgang et al, Am J Kidney Dis. 2021;79(2):268- 288, A Unifying Approach for GFR estimation: Recommendations of the NKF-ASN Task Force on Reassessing the Inclusion of Race in Diagnosing Kidney Disease . Globulin, Total 3.6 2.1 - 4.2 g/dL 03/22/2025 7:20 AM EDT [facility] A/G Ratio 1.1(L) 1.5 - 3.0 03/22/2025 7:20 AM EDT [facility] Blood Structure of peripheral vein / Unknown Venipuncture / Unknown 03/22/2025 6:25 AM EDT 03/22/2025 6:32 AM EDT David Carcamo MD LAB BLOOD ORDERABLES Final Result [facility] [address] [place] [address], [place] * HEART & VASCULAR - SCANNED (03/22/2025) Anatomical Region Laterality Modality Other us Onbase Scan [place] SCANNED PROCEDURES Final Resu lt * Rapid COVID-19 for Surveillance - Psych/Admission (03/20/2025 8:40 PM EDT) PCR, SARS CoV-2 RNA Not Detected Not Detected [employer] 03/20/2025 9:21 PM EDT [facility] Comment:A Not Detected (Nega tive) test result is indicative of the absence of SARS-CoV-2 RNA at the level of LoD (Limit of Detection). A negative result does not rule out the possibility of COVID-19 and should not be used as the sole basis for treatment or patient management decisions. If COVID-19 is still suspected, based on exposure history together with other clinical findings, re-testing should be considered. Swab (Nares) Non-Blood Collection / Unknown 03/20/2025 8:40 PM EDT 03/20/2025 8:46 PM EDT Narrative [facility] - 03/20/2025 9:21 PM EDT This test was developed, validated and its performance characteristics determined by [facility] Clinical Labs. This test has not been cleared or approved by the U.S. Food and Drug Administration (FDA). FDA Policy for Diagnostic Tests for Coronavirus Disease-2019 during the Public Health Emergency issued December 21, 2019, is followed. us Myrna John MD LAB BODY FLUIDS AND STOOLS ORDERABLES Final Result [facility] [address] [facility] [address] [place] [address], from Last 3 [place] [id number] 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
[2025-05-30 12:20] LABS: Alanine Aminotransferase 28 U/L (0-31); Albumin Level 3.9 g/dL (3.5-5.0); Alkaline Phosphatase 130 U/L (39-117); Anion Gap 17 (12-20); Aspartate Amino Transferase 29 U/L (5-31); Blood Urea Nitrogen 7 mg/dL (9-16); Calcium 9.1 mg/dL (8.4-10.2); Carbon Dioxide 18 mmol/L (22-29); Chloride 112 mmol/L (96-108); Creatinine Clr Calc Pharmacy 87.9; Estimated Glomerular Filt Rate > 60; Magnesium 2.1 mg/dL (1.6-2.6); Potassium 4.2 mmol/L (3.3-5.1); Salicylate < 5.0 mg/dL (15-30); Sodium 143 mmol/L (135-145); Total Protein 8.0 g/dL (6.5-8.0)
--- NOTE | 2025-05-30 12:20 | PC.NURSE ---
pt difficult stick, chemistries still pending >30mins, called lab to inquire if any labs were flagged as recollects, no recollects at this time, specs are still pending.
[2025-05-30 12:32] LABS: Acetaminophen LAB < 3 mcg/mL (<30); Troponin-I High Sensitivity < 2.7 ng/L (<3.5-17.0)
[2025-05-30 13:24] VITALS: BP 162/84; PULSE 63; RESP 16; TEMP 36.7; O2SAT 97
[2025-05-30 13:55] LABS: Appearance Urine Clear; Glucose Urine UA Negative (Negative); PH 6.5 (5.0-9.0); Specific Gravity - Urine 1.015 (1.005-1.025)
[2025-05-30 14:06] LABS: Cannabinoid Screen Urine POSITIVE (Not Detect)
--- NOTE | 2025-05-30 15:00 | PHA.MEDREC ---
Pharmacy Consult ? Medication Reconciliation Pharmacy has completed the medication reconciliation. med rec completed by nursing, matches claim history
--- NOTE | 2025-05-30 15:01 | PC.NURSE ---
med rec - completed using the medications most recently claimed at pharmacy. pt confirmed these medications. other meds have not been filled since 02/09/25. Checked with Antolin Everett on these remaining medications. To be administered as ordered with the rest being left off med rec.
[2025-05-30] MEDS: methADONE HCl 20 MG/2 ML ORAL.CONC 30 MG PO (15:29)
--- NOTE | 2025-05-30 21:36 | PC.NURSE ---
Patient is calm, denies any pain at present. Patient requested vanilla pudding and orange sherbet. provided with requested snack, tolerated well, patient medicated per MAR. Patient offers no complaints at present. Plan of care ongoing.
[2025-05-30 21:37] VITALS: BP 133/87
[2025-05-31 06:41] VITALS: BP 152/77; PULSE 66; RESP 16; TEMP 36.4; O2SAT 99
[2025-05-31 08:11] LABS: UPreg QC Valid YES
[2025-05-31] MEDS: methADONE HCl 20 MG/2 ML ORAL.CONC 30 MG PO (09:19)
--- NOTE | 2025-05-31 09:52 | PC.NURSE ---
Addendum entered by Chelly Pablo RN 05/31/25 10:01: Patientis a 44-year-old female with a history of reported schizoaffective disorder, PTSD opiate and alcohol use. Noted to have multiple suicide attempts. Since being discharged from here in February the patient had a hospitalization shortly after that had been referred for inpatient by the [facility] secondary to suicidal thoughts and hallucinations. She had not taken her prescribed medications for a couple of weeks which included sertraline Thorazine Seroquel clonazepam. The patient is normally on methadone for medically assisted treatment, but has not participated in a unknown amount of time. Patient prescribed methadone at this facility which began yesterday. In addition to alcohol and opiate use she states she did not take her medication for at least a couple of weeks prior to admission. She was hearing command hallucinations telling her to harm herself. The patient has chronic auditory hallucinations she has had them off and on since childhood. She does not have current outpatient providers. . Chronic auditory hallucinations, history of depressive episodes and manic history. Patient has been increasingly despondent staying she is alone has nothing to live for has had multiple deaths in the family she has 2 children that she does not have connection with. She is requesting to go home at this time but is currently a dual diagnosis bed search. Original Note: Medical History Class 3 obesity Tobacco use disorder Polysubstance abuse Wound of right foot Opioid use disorder Schizoaffective disorder, bipolar type Umbilical hernia, incarcerated Alcohol use disorder Polysubstance use disorder Asthma PTSD (post-traumatic stress disorder) Recurrent major depression
[2025-05-31 17:22] VITALS: BP 109/64; PULSE 67; RESP 16; TEMP 36.5; O2SAT 100
[2025-05-31 20:45] VITALS: BP 151/83; PULSE 68; RESP 18; TEMP 36.3; O2SAT 99; BMI 38.3
--- NOTE | 2025-06-01 00:50 | PC.ADMIT ---
Rose was admitted from [facility] on a CV for the treatment of schizoaffective d/o bipolar type with PTSD and PSA. She endorses depresion, anxiety, suicidal ideation and CAH telling her to hurt herself. She is A&O X3, somewhat slow to respond, and denies VH,HI. she states that last month she attempted suicide and had a big overdose and that the residual effects are generalized weakness and being slow to respond. she states that she drinks 2 pints of hard liquor daily and that she has not had a drink in 2 days. no s/s of ETOH withdrawal noted. she stated that she is suicidal related to her current living situation. her mobile home is apparently full of mold with water coming up from the floor and that she feels unsafe staying there. she also stated that she has no electricity and no running water. she states that she has no family , no outside supports and nowhere to go. Rose stated that she sometimes attends AA meetings but has no other community interactions. Rose is noted to have a large intact scab on the dorsal and right lateral surface of her left foot. she is oriented X'3 and cooperative with admission process. placed on Q15 minute safety checks and oriented to the unit
[2025-06-01 07:55] VITALS: BP 140/97; PULSE 73; RESP 18; TEMP 36.6; O2SAT 100
[2025-06-01] MEDS: methADONE HCl 20 MG/2 ML ORAL.CONC 30 MG PO (08:05)
[2025-06-01 08:17] LABS: Hemoglobin A1C 127.7193 umol/L; Total Hemoglobin (HGBA1C) 3529.5967 umol/L
[2025-06-01 08:51] LABS: Alanine Aminotransferase 30 U/L (0-31); Albumin Level 4.2 g/dL (3.5-5.0); Alkaline Phosphatase 135 U/L (39-117); Anion Gap 14 (12-20); Aspartate Amino Transferase 31 U/L (5-31); Blood Urea Nitrogen 10 mg/dL (9-16); Calcium 9.1 mg/dL (8.4-10.2); Carbon Dioxide 23 mmol/L (22-29); Chloride 105 mmol/L (96-108); Cholesterol 164 mg/dL (<200); Creatinine Clr Calc Pharmacy 84.7; Estimated Glomerular Filt Rate > 60; Free T4 (Free Thyroxine) 1.15 ng/dL (0.71-1.85); HDL Cholesterol 46 mg/dL (>40); Potassium 4.2 mmol/L (3.3-5.1); Sodium 138 mmol/L (135-145); Thyroid Stimulating Hormone 1.41 uIU/mL (0.32-4.0); Total Protein 8.1 g/dL (6.5-8.0); Triglycerides 96 mg/dL (<150)
--- NOTE | 2025-06-01 09:29 | P.HPPS_ITS ---
[facility] Date of Service: 06/01/25 Chief Complaint: SI Sources of Information: patient interviewed, chart reviewed and crisis/core team assessment reviewed HPI Subjective Notes: Aly Warning and Conditional Voluntary Narrative: Patient is a 45-year-old female with history of schizoaffective disorder, PTSD, opiate use disorder, alcohol use disorder and cocaine use disorder who presented to ER via EMS due to suicidal ideation secondary to increased command auditory hallucinations. Per crisis report, patient presented to ER via ambulance due to chest pain, shortness of breath, command auditory hallucinations and suicidal ideation with a plan. History of multiple inpatient psychiatric hospitalizations. Patient was recently at [facility] for dual diagnosis treatment on April 28 2025. Patient reports that she can not recall when she was discharged from their unit. Patient reports she signed herself out and returned to the area without an MAT clinic, a therapist or a step-down to [facility]. She reports if she were to be discharged, she would commit suicide via intentional overdose, hanging or drowning. History of 1 prior suicide attempt on 04/23/2025 after allegedly attempting to drown herself in a bathtub. Prior to this patient has no documented history of suicide attempts or SIB. During admission assessment, patient presents alert and oriented x3. Calm and cooperative. Patient reports feeling depressed; patient stated, I have no water, no heat and no electricity in my house. There is mold everywhere. I have to try to find somewhere else to go . Patient reports she has been using IV heroin daily and drinking a couple pints of vodka daily; along with using cocaine 3 times a week . Patient reports she has not been medication compliant. Patient stated, I feel like my meds work when I use them. I don't take my meds when I'm using . Patient reports having auditory hallucinations on and off telling her to hang herself. She reports history of suicide attempts; per crisis she has 1 prior suicide attempt. Denies history of SIB. Patient stated, I want to work on my coping skills here and try to get a therapist. I want to go to a substance abuse program . Patient would like labs drawn for HIV and hepatitis panel. She currently denies SI/HI/VH/AH. Past Psychiatric History: hx of multiple inpatient psychiatric hospitalizations Outpatient psychiatrist: Rhea Davila ([facility]) Does not have outpatient therapist Medical Evaluation Reviewed: Yes [facility] Medical History (Updated 06/01/25 @ 16:16 by Jenna Day NP) Alcohol use disorder Class 3 obesity Tobacco use disorder Polysubstance abuse Wound of right foot Opioid use disorder Schizoaffective disorder, bipolar type Umbilical hernia, incarcerated Polysubstance use disorder Asthma PTSD (post-traumatic stress disorder) Recurrent major depression Family History: Mother: Schizoaffective disorder, bipolar type. Uncle: Completed suicide Social History: Pt lives in a trailer she owns. . 2 adult children. disability. Anniversary of mom's in February Substance History: Utox positive for methadone, fentanyl, barbiturates, cocaine, marijuana. Trauma History: Severe an extensive trauma throughout lifetime, starting in childhood Diagnostics Vital Signs (24Hr): Vital Signs - 24 hr 05/31/25 17:22 05/31/25 20:45 06/01/25 07:55 Temperature 97.7 F 97.4 F 97.9 F Pulse Rate 67 68 73 Respiratory Rate 16 18 18 Blood Pressure 109/64 151/83 H 140/97 H Pulse Oximetry 100 99 100 Oxygen Delivery Method Room Air Room Air Room Air BMI result Body Mass Index 38.3 Labs 05/30/25 11:45 06/01/25 07:48 Labs: Laboratory Results - last 48 hr 05/30/25 05/30/25 06/01/25 11:45 13:42 07:48 WBC 8.9 RBC 4.55 Hgb 12.9 Hct 39.3 MCV 86.4 MCH 28.4 MCHC 32.8 RDW 14.4 Plt Count 283 MPV 10.8 Immature Gran % (Auto) 0.8 H Neut % (Auto) 63.0 Lymph % (Auto) 24.7 [place] % (Auto) 9.4 Eos % (Auto) 1.6 Baso % (Auto) 0.5 Lymph # (Auto) 2.2 [place] # (Auto) 0.8 Eos # (Auto) 0.1 Baso # (Auto) 0.0 Abs Immat Gran (auto) 0.07 H Absolute Neuts (auto) 5.6 Absolute Nucleated RBC 0.000 Nucleated RBC % (auto) 0.0 PT 11.2 INR 1.0 Sodium 143 138 Potassium 4.2 4.2 Chloride 112 H 105 Carbon Dioxide 18 L 23 Anion Gap 17 14 BUN 7 L 10 Creatinine 0.78 0.89 Estim Creat Clear Calc 87.9 84.7 Estimated GFR > 60 > 60 Random Glucose 124 H 86 Estimat Average Glucose 111 Hemoglobin A1c % 5.5 Calcium 9.1 D 9.1 Magnesium 2.1 Total Bilirubin 0.2 0.2 Direct Bilirubin < 0.2 AST 29 31 ALT 28 30 Alkaline Phosphatase 130 H 135 H Troponin I High Sens < 2.7 Total Protein 8.0 8.1 H Albumin 3.9 4.2 Triglycerides 96 Cholesterol 164 LDL Cholesterol, Calc 99 HDL Cholesterol 46 TSH 1.41 Free T4 1.15 Urine Color Yellow Urine Appearance Clear Urine pH 6.5 Ur Specific [place] 1.015 Urine Protein Negative Urine Glucose (UA) Negative Urine Ketones Negative Urine Blood Negative Urine Nitrite Negative Ur Leukocyte Esterase Negative Urine Test NEGATIVE Salicylates < 5.0 L Urine Opiates Screen Not Detected Ur Buprenorphine Scrn Not Detected Ur Oxycodone Screen Not Detected Urine Methadone Screen Positive H Urine Fentanyl Screen POSITIVE H Acetaminophen < 3 Ur Barbiturates Screen POSITIVE H Ur Phencyclidine Scrn Not Detected Ur Amphetamines Screen Not Detected U Benzodiazepines Scrn POSITIVE H Urine Cocaine Screen POSITIVE H U Marijuana (THC) Screen POSITIVE H Ethyl Alcohol < 10 Meds/Allergies Meds Home Medications ?Medication ?Instructions ?Recorded ?Confirmed ?Type albuterol sulfate 90 mcg/actuation 1 - 2 puff inhalati on Q4-6H PRN 04/25/25 05/30/25 History aerosol inhaler Shortness Of Breath Or Wheez ing clonidine HCl 0.1 mg tablet 0.1 mg PO Q6H PRN Anxiety 04/25/25 05/30/25 History prazosin 2 mg capsule 6 mg PO BEDTIME 04/25/25 History quetiapine 300 mg tablet 300 mg PO BEDTIME 04/25/25 0 05/30/25 History trazodone 50 mg tablet 50 mg PO BEDTIME 04/25/25 History cephalexin 500 mg capsule 500 mg PO QID 05/30/2505/30 History clonazepam 1 mg tablet 1 mg PO TID anxiety 05/30/25 05/30/25 History haloperidol 5 mg tablet 5 mg PO BID PRN Agitation 05/30/25 History ropinirole 1 mg tablet 1 mg PO BEDTIME restless leg s 08/24/25 08/24/25 History sertraline 100 mg tablet 200 mg PO DAILY depressive d isorder 05/30/25 05/30/25 History Allergies Allergies Allergy/AdvReac Type Severity Reaction Status Date / Time Penicillins Allergy Intermediate HIVES Verified 04/23/25 13:35 cephalexin (From Keflex) Allergy Unknown Verified 05/30/25 10:53 chlordiazepoxide (From Allergy Unknown Verified 05/30/25 10:53 Librium) sulfamethoxazole (From Allergy Unknown Verified 05/30/25 10:53 Bactrim) trimethoprim (From Bactrim) Allergy Unknown Verified 05/30/25 10:53 Mental Status Exam Mental Status Exam Narrative: Pt is alert and oriented; behavior is cooperative and calm; dressed in casual attire; mood is described as depressed ; eye contact appropriate; Speech is normal rate, volume and not pressured; thought process is organized and goal directed; Thought content is on tx; denies SI/HI/VH/AH. Assessment & Plan Assessment & Plan (1) Schizoaffective disorder, bipolar type: Status: Acute Code(s): F25.0 - Schizoaffective disorder, bipolar type (2) PTSD (post-traumatic stress disorder): Status: Acute Code(s): F43.10 - Post-traumatic stress disorder, unspecified (3) Opioid use disorder: Status: Acute Code(s): F11.90 - Opioid use, unspecified, uncomplicated (4) Alcohol use disorder: Status: Acute Code(s): F10.90 - Alcohol use, unspecified, uncomplicated (5) Cocaine use disorder: Status: Acute Code(s): F14.10 - Cocaine abuse, uncomplicated Plan Patient is a 45-year-old female with history of schizoaffective disorder, PTSD, opiate use disorder, alcohol use disorder and cocaine use disorder who presented to ER via EMS due to suicidal ideation secondary to increased command auditory hallucinations. Plan: CV 15 minute safety checks obtain collateral Continue home medications Encourage groups [place] protocol Consult to addiction medicine d/t pt requesting increase in methadone Order HIV/Hep Panel per pt request Start: hydrocortisone cream BID PRN for itching on arm Discharge planning Patient educated on: diagnosis and medication risk/benefits Reason for continued inpatient stay Substantial Risk for: med/psych decompensation Statement Statement: I have reviewed the history and physical and performed a pertinent examination on my patient. No changes have occurred unless specified. If the History and Physical was not performed prior to admission, the Hospitalist's service will be consulted for completing the admission physical. Time Spent With Patient Time: Total time managing care of this patient today _60___ minutes.
[2025-06-01] MEDS: methADONE HCl 20 MG/2 ML ORAL.CONC 10 MG PO (18:31)
[2025-06-01 20:00] VITALS: BP 137/73; PULSE 69; RESP 16; TEMP 36.3; O2SAT 100
[2025-06-01 20:22] VITALS: BP 137/73
[2025-06-02 07:45] VITALS: BP 137/76; PULSE 70; RESP 16; TEMP 36.3; O2SAT 99
[2025-06-02] MEDS: methADONE HCl 20 MG/2 ML ORAL.CONC 30 MG PO (08:13)
--- NOTE | 2025-06-02 08:52 | P.PNPSI_ITS ---
Subjective Subjective Date of Service: 06/02/25 Reason For Visit: SI Subjective Notes: Conditional Voluntary Interim History: Patient reports feeling a little better today; she reports not sleeping well last night despite nursing reporting pt sleeping throughout the night. Pt focused on obtaining bed at [facility]. denies SI/HI/VH. Pt reports auditory hallucinations of mumbles . ANAHI PEÑA after case reviewed with Regina Gant NP. Continue current tx plan. Medication Compliance: Yes Side effects from medications: No Attending Groups: Intermittent Mental Status Exam Mental Status Exam Narrative: Pt is alert and oriented; behavior is cooperative and calm; dressed in casual attire; mood is described as depressed ; eye contact appropriate; Speech is normal rate, volume and not pressured; thought process is organized and goal directed; Thought content is on tx; denies SI/HI/VH. +AH of mumbles. Diagnostics Vital Signs (24Hr): Vital Signs - 24 hr 06/01/25 20:00 06/01/25 20:22 06/02/25 07:45 Temperature 97.4 F 97.3 F Pulse Rate 69 70 Respiratory Rate 16 16 Blood Pressure 137/73 137/73 137/76 Pulse Oximetry 100 99 Oxygen Delivery Method Room Air Room Air BMI result Body Mass Index 38.3 Labs 05/30/25 11:45 06/01/25 07:48 Labs: Laboratory Results - last 48 hr 06/01/25 07:48 Sodium 138 Potassium 4.2 Chloride 105 Carbon Dioxide 23 Anion Gap 14 BUN 10 Creatinine 0.89 Estim Creat Clear Calc 84.7 Estimated GFR > 60 Random Glucose 86 Estimat Average Glucose 111 Hemoglobin A1c % 5.5 Calcium 9.1 Total Bilirubin 0.2 AST 31 ALT 30 Alkaline Phosphatase 135 H Total Protein 8.1 H Albumin 4.2 Triglycerides 96 Cholesterol 164 LDL Cholesterol, Calc 99 HDL Cholesterol 46 TSH 1.41 Free T4 1.15 Medications Medications Current Medications Acetaminophen (Acetaminophen 325 Mg Tablet) 650 mg PO Q6H PRN PRN Reason: Headache/Pain, Scale 1-10 Al Hydroxide/Mg Hydroxide (Magnesium Hydrox/Alum Hydrox 30 Ml Oral.Susp) 30 ml PO Q6H PRN PRN Reason: Heartburn/Nausea Albuterol Sulfate (Albuterol Sulfate 90 Mcg 8 Gm Inhaler) 1 puff INHALE RQ4H PRN PRN Reason: Shortness Of Breath Or Wheezing Clonazepam (Clonazepam 1 Mg Tablet) 1 mg PO TID IJEOMA Last Admin: 06/02/25 08:21 Dose: 1 mg Clonidine HCl (Clonidine Hcl 0.1 Mg Tablet) 0.1 mg PO Q6H PRN; Protocol PRN Reason: Anxiety Haloperidol (Haloperidol 5 Mg Tablet) 5 mg PO BID PRN PRN Reason: Agitation Last Admin: 06/01/25 16:01 Dose: 5 mg Hydrocortisone (Hydrocortisone 1 % Cream 28.35 Gm Tube) 1 appl TOPICAL BID PRN; Protocol PRN Reason: Itching Hydroxyzine HCl (Hydroxyzine Hcl 25 Mg Tablet) 25 mg PO Q6H PRN PRN Reason: mild anxiety Last Admin: 06/01/25 02:34 Dose: 25 mg Lorazepam (Lorazepam 1 Mg Tablet) 1 mg PO Q2H PRN PRN Reason: CIWA 8-11 Lorazepam (Lorazepam 1 Mg Tablet) 2 mg PO Q2H PRN PRN Reason: CIWA 12-15 Last Admin: 06/02/25 08:21 Dose: 2 mg Lorazepam (Lorazepam 1 Mg Tablet) 3 mg PO Q2H PRN PRN Reason: CIWA > 15, and call Magnesium Hydroxide (Milk Of Magnesia 30 Ml Oral.Susp) 30 ml PO DAILY PRN PRN Reason: Constipation Methadone HCl (Methadone Hcl 20 Mg/2 Ml Oral.Conc) 30 mg PO DAILY IJEOMA Last Admin: 06/02/25 08:13 Dose: 30 mg Methadone HCl (Methadone Hcl 20 Mg/2 Ml Oral.Conc) 10 mg PO DAILY PRN PRN Reason: Opiate Withdrawal Last Admin: 06/01/25 18:31 Dose: 10 mg Nicotine (Nicotine 21 Mg Patch.Td24) 21 mg TRANSDERMA DAILY PRN PRN Reason: nicotine craving Nicotine Polacrilex (Nicotine Polacrilex 2 Mg Gum) 2 mg BUCCAL Q2H PRN PRN Reason: Nicotine Cravings Prazosin HCl (Prazosin Hcl 1 Mg Capsule) 6 mg PO BEDTIME IJEOMA; Protocol Last Admin: 06/01/25 20:22 Dose: 6 mg Quetiapine Fumarate (Quetiapine Fumarate 300 Mg Tablet) 300 mg PO BEDTIME IJEOMA Last Admin: 06/01/25 20:22 Dose: 300 mg Quetiapine Fumarate (Quetiapine Fumarate 50 Mg Tablet) 50 mg PO DAILY IJEOMA Last Admin: 06/02/25 08:21 Dose: 50 mg Ropinirole HCl (Ropinirole Hcl 1 Mg Tablet) 1 mg PO BEDTIME [facility] Last Admin: 06/01/25 20:22 Dose: 1 mg Sertraline HCl (Sertraline Hcl 100 Mg Tablet) 200 mg PO DAILY [facility] Last Admin: 06/02/25 08:22 Dose: 200 mg Thiamine HCl (Thiamine Hcl 100 Mg Tablet) 100 mg PO DAILY [facility] Last Admin: 06/02/25 08:22 Dose: 100 mg Trazodone HCl (Trazodone Hcl 50 Mg Tablet) 50 mg PO BEDTIME IJEOMA Last Admin: 06/01/25 20:22 Dose: 50 mg Trazodone HCl (Trazodone Hcl 50 Mg Tablet) 50 mg PO BEDTIME PRN PRN Reason: Insomnia Last Admin: 06/01/25 02:34 Dose: 50 mg Allergies Allergies Allergy/AdvReac Type Severity Reaction Status Date / Time Penicillins Allergy Intermediate HIVES Verified 04/23/25 13:35 cephalexin (From Keflex) Allergy Unknown Verified 05/30/25 10:53 chlordiazepoxide (From Allergy Unknown Verified 05/30/25 10:53 Librium) sulfamethoxazole (From Allergy Unknown Verified 05/30/25 10:53 Bactrim) trimethoprim (From Bactrim) Allergy Unknown Verified 05/30/25 10:53 Assessment & Plan Assessment & Plan (1) Schizoaffective disorder, bipolar type: Status: Acute Code(s): F25.0 - Schizoaffective disorder, bipolar type (2) PTSD (post-traumatic stress disorder): Status: Acute Code(s): F43.10 - Post-traumatic stress disorder, unspecified (3) Opioid use disorder: Status: Acute Code(s): F11.90 - Opioid use, unspecified, uncomplicated (4) Alcohol use disorder: Status: Acute Code(s): F10.90 - Alcohol use, unspecified, uncomplicated (5) Cocaine use disorder: Status: Acute Code(s): F14.10 - Cocaine abuse, uncomplicated Plan Patient is a 45-year-old female with history of schizoaffective disorder, PTSD, opiate use disorder, alcohol use disorder and cocaine use disorder who presented to ER via EMS due to suicidal ideation secondary to increased command auditory hallucinations. Plan: CV 15 minute safety checks obtain collateral Continue home medications Encourage groups [facility] protocol Consult to addiction medicine d/t pt requesting increase in methadone Order HIV/Hep Panel per pt request Start: hydrocortisone cream BID PRN for itching on arm Discharge planning 06/02: Patient reports feeling a little better today; she reports not sleeping well last night despite nursing reporting pt sleeping throughout the night. Pt focused on obtaining bed at [facility]. denies SI/HI/VH. Pt reports auditory hallucinations of mumbles . DC MARIANA after case reviewed with Regina Gant NP. Continue current tx plan. Patient educated on: diagnosis, medication risk/benefits and therapeutic strategies Reason for continued inpatient stay Substantial Risk for: med/psych decompensation Time Spent With Patient Time: Total time managing care of this patient today _20___ minutes.
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
[2025-06-02] MEDS: methADONE HCl 20 MG/2 ML ORAL.CONC 15 MG PO (10:49)
--- NOTE | 2025-06-02 13:14 | MHC.RECOVRN ---
?Tw met with pt in 322 to offer support and resources after consult placed to Addiction Medicine for substance use. On approach pt was standing in the room, slouched, eyes slightly closed. Pts speech was slow, eye contact intermittent. She denies pain but does report ?feeling like crap? and states she is experiencing withdrawal symptoms of ?bugs crawling on my skin, sensitivity to light, and anxiety?. She is currently receiving 30mg of methadone w/ 10mg prn and reports she would like an increase ?so that I can just function?. Pt was ordered an additional one time dose of methadone 15 mg.? Pt reports she last went to [facility] on [facility] [facility] in [facility] and was receiving 100 mg Methadone but most recently was only receiving methadone while inpatient. She states she has not been established at an OTP since . TW attempted to call [facility] several times to verify the last dose and left a message for a call back.? Pt reports she is optimistic and ?want to reach my goals?. She states she would like to go to halfway treatment or placement at a dual diagnosis facility.? She states triggers and barriers to her recovery include ongoing mental health issues and a poor living situation. ?My trailer has no utilities and has extensive water damage. ?When I?m there I just want to use?.? She also states that although she owns her trailer the ?landlord? wants to evict her.?? Krishna states that most recently she used about $300 worth of cocaine, 2 pints of vodka and 2 pints of K[place]lu just prior to admission.? She reports one previous OD requiring the use of Narcan on 04/09/25.? Reported treatment history of [facility] ?and a few others? . Rose states she sometimes attends a morning AA meeting in [place] with her aunt ?who? is in watermelon harvesting supervisor recovery? and states she utilizes her as a temporary sponsor and states she would like to get back into attending meetings more regularly. She states she has a head boys golf coach she is in contact with weekly but is unable to recall their name, ?they work for [employer].? She states her only friends are ?addicts? and needs more peer support Pt asked for and was provided information for free legal services and social security. ?It was my only form of income and it stopped in March because I forgot to do my review?? Discussed how alcohol and substance use has impacted health, including negative impact on mental health and overall physical well being. Discussed risk and reduction strategies including drinking below the recommended limit, utilizing clean supplies, and testing drug supply.? Provided pt with written resources including information on inpatient and outpatient treatment, ORIANA, harm reduction and recovery coaching. Pt declines intervention, ORIANA, or outpatient appt for treatment related to AUD/MARCOS at this time. Pt was provided with TW?s contact information if questions or concerns arise. Pt denies further questions or concerns at this time.?
[2025-06-02 20:00] VITALS: BP 126/72; PULSE 74; RESP 16; TEMP 36.4; O2SAT 99
[2025-06-03 07:00] VITALS: BMI 38.9
[2025-06-03] MEDS: methADONE HCl 20 MG/2 ML ORAL.CONC 50 MG PO (07:36)
[2025-06-03 07:37] VITALS: BP 116/63; PULSE 75; RESP 20; TEMP 36.4; O2SAT 100
--- NOTE | 2025-06-03 10:18 | MHC.RECOVRN ---
TW verified pt was last dosed 50mg of methadone on 02/12/25 @ [facility] and received two take homes of 50mg each. Pt is currently inactive with clinic
--- NOTE | 2025-06-03 14:49 | HO.PSYCHPN ---
Subjective Subjective Date of Service: 06/03/25 Reason For Visit: SI Subjective Notes: Conditional Voluntary Interim History: Active on unit. attending groups. Patient reports feeling okay today; pt stated, I'm feeling like my mood is better but I'm still having anxiety about if I'm going to go to a program . denies any withdrawal symptoms. denies SI/HI/VH. Pt continues to reports auditory hallucinations of mumbles . Continue current tx plan. Medication Compliance: Yes Side effects from medications: No Attending Groups: Yes Mental Status Exam Mental Status Exam Narrative: Pt is alert and oriented; behavior is cooperative and calm; dressed in casual attire; mood is described as better ; eye contact appropriate; Speech is normal rate, volume and not pressured; thought process is organized and goal directed; Thought content is on tx; denies SI/HI/VH. +AH of mumbles. Diagnostics Vital Signs (24Hr): Vital Signs - 24 hr 06/02/25 20:00 06/03/25 07:37 Temperature 97.5 F 97.6 F Pulse Rate 74 75 Respiratory Rate 16 20 Blood Pressure 126/72 116/63 Pulse Oximetry 99 100 Oxygen Delivery Method Room Air Room Air BMI result Body Mass Index 38.9 Labs 05/30/25 11:45 06/01/25 07:48 Medications Medications Current Medications Acetaminophen (Acetaminophen 325 Mg Tablet) 650 mg PO Q6H PRN PRN Reason: Headache/Pain, Scale 1-10 Al Hydroxide/Mg Hydroxide (Magnesium Hydrox/Alum Hydrox 30 Ml Oral.Susp) 30 ml PO Q6H PRN PRN Reason: Heartburn/Nausea Albuterol Sulfate (Albuterol Sulfate 90 Mcg 8 Gm Inhaler) 1 puff INHALE RQ4H PRN PRN Reason: Shortness Of Breath Or Wheezing Clonazepam (Clonazepam 1 Mg Tablet) 1 mg PO TID IJEOMA Last Admin: 06/03/25 08:18 Dose: 1 mg Clonidine HCl (Clonidine Hcl 0.1 Mg Tablet) 0.1 mg PO Q6H PRN; Protocol PRN Reason: Anxiety Haloperidol (Haloperidol 5 Mg Tablet) 5 mg PO BID PRN PRN Reason: Agitation Last Admin: 06/03/25 11:36 Dose: 5 mg Hydrocortisone (Hydrocortisone 1 % Cream 28.35 Gm Tube) 1 appl TOPICAL BID PRN; Protocol PRN Reason: Itching Hydroxyzine HCl (Hydroxyzine Hcl 25 Mg Tablet) 25 mg PO Q6H PRN PRN Reason: mild anxiety Last Admin: 06/03/25 11:36 Dose: 25 mg Magnesium Hydroxide (Milk Of Magnesia 30 Ml Oral.Susp) 30 ml PO DAILY PRN PRN Reason: Constipation Methadone HCl (Methadone Hcl 20 Mg/2 Ml Oral.Conc) 50 mg PO DAILY@0800 [facility] Last Admin: 06/03/25 07:36 Dose: 50 mg Nicotine (Nicotine 21 Mg Patch.Td24) 21 mg TRANSDERMA DAILY PRN PRN Reason: nicotine craving Nicotine Polacrilex (Nicotine Polacrilex 2 Mg Gum) 2 mg BUCCAL Q2H PRN PRN Reason: Nicotine Cravings Prazosin HCl (Prazosin Hcl 1 Mg Capsule) 6 mg PO BEDTIME [facility]; Protocol Last Admin: 06/02/25 20:46 Dose: 6 mg Quetiapine Fumarate (Quetiapine Fumarate 300 Mg Tablet) 300 mg PO BEDTIME IJEOMA Last Admin: 06/02/25 20:45 Dose: 300 mg Quetiapine Fumarate (Quetiapine Fumarate 50 Mg Tablet) 50 mg PO DAILY [facility] Last Admin: 06/03/25 08:18 Dose: 50 mg Ropinirole HCl (Ropinirole Hcl 1 Mg Tablet) 1 mg PO BEDTIME IJEOMA Last Admin: 06/02/25 20:46 Dose: 1 mg Sertraline HCl (Sertraline Hcl 100 Mg Tablet) 200 mg PO DAILY [facility] Last Admin: 06/03/25 08:19 Dose: 200 mg Trazodone HCl (Trazodone Hcl 50 Mg Tablet) 50 mg PO BEDTIME IJEOMA Last Admin: 06/02/25 20:45 Dose: 50 mg Trazodone HCl (Trazodone Hcl 50 Mg Tablet) 50 mg PO BEDTIME PRN PRN Reason: Insomnia Last Admin: 06/01/25 02:34 Dose: 50 mg Allergies Allergies Allergy/AdvReac Type Severity Reaction Status Date / Time Penicillins Allergy Intermediate HIVES Verified 04/23/25 13:35 cephalexin (From Keflex) Allergy Unknown Verified 05/30/25 10:53 chlordiazepoxide (From Allergy Unknown Verified 05/30/25 10:53 Librium) sulfamethoxazole (From Allergy Unknown Verified 05/30/25 10:53 Bactrim) trimethoprim (From Bactrim) Allergy Unknown Verified 05/30/25 10:53 Assessment & Plan Assessment & Plan (1) Schizoaffective disorder, bipolar type: Status: Acute Code(s): F25.0 - Schizoaffective disorder, bipolar type (2) PTSD (post-traumatic stress disorder): Status: Acute Code(s): F43.10 - Post-traumatic stress disorder, unspecified (3) Opioid use disorder: Status: Acute Code(s): F11.90 - Opioid use, unspecified, uncomplicated Assessment and Plan: additional 15mg methadone (total 45mg) methadone 50mg in AM add on Hep C VL and HIV screen with next lab draw (4) Alcohol use disorder: Status: Acute Code(s): F10.90 - Alcohol use, unspecified, uncomplicated Assessment and Plan: would benefit from fixed schedule taper instead of a sx triggered tissue recovery technician to 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 Plan: CV 15 minute safety checks obtain collateral Continue home medications Encourage groups MARIANA protocol Consult to addiction medicine d/t pt requesting increase in methadone Order HIV/Hep Panel per pt request Start: hydrocortisone cream BID PRN for itching on arm Discharge planning 06/02: Patient reports feeling a little better today; she reports not sleeping well last night despite nursing reporting pt sleeping throughout the night. Pt focused on obtaining bed at [facility]. denies SI/HI/VH. Pt reports auditory hallucinations of mumbles . ANAHI PEÑA after case reviewed with Regina Gant NP. Continue current tx plan. 06/03: Active on unit. attending groups. Patient reports feeling okay today; pt stated, I'm feeling like my mood is better but I'm still having anxiety about if I'm going to go to a program . denies any withdrawal symptoms. denies SI/HI/VH. Pt continues to reports auditory hallucinations of mumbles . Continue current tx plan. Patient educated on: diagnosis, medication risk/benefits and therapeutic strategies Reason for continued inpatient stay Substantial Risk for: med/psych decompensation Time Spent With Patient Time: Total time managing care of this patient today _20___ minutes.
--- NOTE | 2025-06-03 15:54 | MHC.RECOVRN ---
TW met with pt in 322 to offer support and check-in with methadone dosing. Pt reports she is not experiencing withdrawal symptoms and feels 50mg is an adequate maintenance dose. She denies complaints, questions or concerns at this time. TW is available for further questions or concerns if needed.
[2025-06-03 19:29] VITALS: BP 134/70; PULSE 71; RESP 16; TEMP 36.4; O2SAT 98
[2025-06-03 21:19] VITALS: BP 139/73
[2025-06-04 07:20] VITALS: BP 138/73; PULSE 89; RESP 16; TEMP 36.3; O2SAT 100
[2025-06-04] MEDS: methADONE HCl 20 MG/2 ML ORAL.CONC 50 MG PO (08:12)
--- NOTE | 2025-06-04 08:47 | HO.PSYCHPN ---
Subjective Subjective Date of Service: 06/04/25 Reason For Visit: SI Subjective Notes: Conditional Voluntary Interim History: Active on unit. attending groups. Patient reports feeling pretty good today; pt stated, I didn't sleep well last night because I was anxious. I'm hoping to get into a program . denies SI/HI/VH/AH. Continue current tx plan. Medication Compliance: Yes Side effects from medications: No Attending Groups: Yes Mental Status Exam Mental Status Exam Narrative: Pt is alert and oriented; behavior is cooperative and calm; dressed in casual attire; mood is described as better ; eye contact appropriate; Speech is normal rate, volume and not pressured; thought process is organized and goal directed; Thought content is on tx; denies SI/HI/VH/AH. Diagnostics Vital Signs (24Hr): Vital Signs - 24 hr 06/03/25 19:29 06/03/25 21:19 06/04/25 07:20 Temperature 97.5 F 97.4 F Pulse Rate 71 89 Respiratory Rate 16 16 Blood Pressure 134/70 139/73 138/73 Pulse Oximetry 98 100 Oxygen Delivery Method Room Air Room Air BMI result Body Mass Index 38.9 Labs 05/30/25 11:45 06/01/25 07:48 Medications Medications Current Medications Acetaminophen (Acetaminophen 325 Mg Tablet) 650 mg PO Q6H PRN PRN Reason: Headache/Pain, Scale 1-10 Last Admin: 06/03/25 21:23 Dose: 650 mg Al Hydroxide/Mg Hydroxide (Magnesium Hydrox/Alum Hydrox 30 Ml Oral.Susp) 30 ml PO Q6H PRN PRN Reason: Heartburn/Nausea Albuterol Sulfate (Albuterol Sulfate 90 Mcg 8 Gm Inhaler) 1 puff INHALE RQ4H PRN PRN Reason: Shortness Of Breath Or Wheezing Clonazepam (Clonazepam 1 Mg Tablet) 1 mg PO TID IJEOMA Last Admin: 06/04/25 08:21 Dose: 1 mg Haloperidol (Haloperidol 5 Mg Tablet) 5 mg PO BID PRN PRN Reason: Agitation Last Admin: 06/03/25 21:20 Dose: 5 mg Hydrocortisone (Hydrocortisone 1 % Cream 28.35 Gm Tube) 1 appl TOPICAL BID PRN; Protocol PRN Reason: Itching Hydroxyzine HCl (Hydroxyzine Hcl 25 Mg Tablet) 25 mg PO Q6H PRN PRN Reason: mild anxiety Last Admin: 06/03/25 11:36 Dose: 25 mg Magnesium Hydroxide (Milk Of Magnesia 30 Ml Oral.Susp) 30 ml PO DAILY PRN PRN Reason: Constipation Methadone HCl (Methadone Hcl 20 Mg/2 Ml Oral.Conc) 50 mg PO DAILY@0800 [facility] Last Admin: 06/04/25 08:12 Dose: 50 mg Nicotine Polacrilex (Nicotine Polacrilex 2 Mg Gum) 2 mg BUCCAL Q2H PRN PRN Reason: Nicotine Cravings Prazosin HCl (Prazosin Hcl 1 Mg Capsule) 6 mg PO BEDTIME IJEOMA; Protocol Last Admin: 06/03/25 21:19 Dose: 6 mg Quetiapine Fumarate (Quetiapine Fumarate 300 Mg Tablet) 300 mg PO BEDTIME IJEOMA Last Admin: 06/03/25 21:20 Dose: 300 mg Quetiapine Fumarate (Quetiapine Fumarate 50 Mg Tablet) 50 mg PO DAILY [facility] Last Admin: 06/04/25 08:21 Dose: 50 mg Ropinirole HCl (Ropinirole Hcl 1 Mg Tablet) 1 mg PO BEDTIME [facility] Last Admin: 06/03/25 21:20 Dose: 1 mg Sertraline HCl (Sertraline Hcl 100 Mg Tablet) 200 mg PO DAILY [facility] Last Admin: 06/04/25 08:21 Dose: 200 mg Trazodone HCl (Trazodone Hcl 50 Mg Tablet) 50 mg PO BEDTIME [facility] Last Admin: 06/03/25 21:20 Dose: 50 mg Trazodone HCl (Trazodone Hcl 50 Mg Tablet) 50 mg PO BEDTIME PRN PRN Reason: Insomnia Last Admin: 06/01/25 02:34 Dose: 50 mg Allergies Allergies Allergy/AdvReac Type Severity Reaction Status Date / Time Penicillins Allergy Intermediate HIVES Verified 04/23/25 13:35 cephalexin (From Keflex) Allergy Unknown Verified 05/30/25 10:53 chlordiazepoxide (From Allergy Unknown Verified 05/30/25 10:53 Librium) sulfamethoxazole (From Allergy Unknown Verified 05/30/25 10:53 Bactrim) trimethoprim (From Bactrim) Allergy Unknown Verified 05/30/25 10:53 Assessment & Plan Assessment & Plan (1) Schizoaffective disorder, bipolar type: Status: Acute Code(s): F25.0 - Schizoaffective disorder, bipolar type (2) PTSD (post-traumatic stress disorder): Status: Acute Code(s): F43.10 - Post-traumatic stress disorder, unspecified (3) Opioid use disorder: Status: Acute Code(s): F11.90 - Opioid use, unspecified, uncomplicated Assessment and Plan: additional 15mg methadone (total 45mg) methadone 50mg in AM add on Hep C VL and HIV screen with next lab draw (4) Alcohol use disorder: Status: Acute Code(s): F10.90 - Alcohol use, unspecified, uncomplicated Assessment and Plan: would benefit from fixed schedule taper instead of a sx triggered rn resource nurse to 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 Plan: CV 15 minute safety checks obtain collateral Continue home medications Encourage groups MARIANA protocol Consult to addiction medicine d/t pt requesting increase in methadone Order HIV/Hep Panel per pt request Start: hydrocortisone cream BID PRN for itching on arm Discharge planning 06/02: Patient reports feeling a little better today; she reports not sleeping well last night despite nursing reporting pt sleeping throughout the night. Pt focused on obtaining bed at [facility]. denies SI/HI/VH. Pt reports auditory hallucinations of mumbles . ANAHI PEÑA after case reviewed with Regina Gant NP. Continue current tx plan. 06/03: Active on unit. attending groups. Patient reports feeling okay today; pt stated, I'm feeling like my mood is better but I'm still having anxiety about if I'm going to go to a program . denies any withdrawal symptoms. denies SI/HI/VH. Pt continues to reports auditory hallucinations of mumbles . Continue current tx plan. 06/04: Active on unit. attending groups. Patient reports feeling pretty good today; pt stated, I didn't sleep well last night because I was anxious. I'm hoping to get into a program . denies SI/HI/VH/AH. Continue current tx plan. Patient educated on: diagnosis, medication risk/benefits and therapeutic strategies Reason for continued inpatient stay Substantial Risk for: med/psych decompensation Time Spent With Patient Time: Total time managing care of this patient today __20__ minutes.
--- NOTE | 2025-06-04 12:38 | MHC.RECOVRN ---
TW met with pt in common area after report from nursing that pt is experiencing an increase in sialorrhea, possibly attributed to increase in methadone. TW met with pt. Pt presented as drowsy, sitting in chair, eating with eyes closed. Pt became more alert on approach and denies over sedation, Pt states she is not sleeping at night and does not feel her methadone dose is too high. Information relayed to Regina Gant NP who suggested to reach pt's Provider and suggest a decrease in pt scheduled 1mg TID Klonopin. TW sent tiger text to Jenna Day NP with recommendation. Awaiting response. Tw available for further questions or concerns
[2025-06-04 19:37] VITALS: BP 147/76; PULSE 74; RESP 18; TEMP 36.9; O2SAT 100
[2025-06-05 07:43] VITALS: BP 154/80; PULSE 80; RESP 16; TEMP 36.8; O2SAT 100
[2025-06-05] MEDS: methADONE HCl 20 MG/2 ML ORAL.CONC 50 MG PO (07:57)
--- NOTE | 2025-06-05 14:24 | P.PNPSI_ITS ---
Subjective Subjective Date of Service: 06/05/25 Reason For Visit: SI Subjective Notes: Conditional Voluntary Interim History: Patient reports doing good today; pt stated, I'm having a little anxiety but I'm no longer depressed . focused on going to a program. She reports feeling hopeful. denies SI/HI/VH/AH. Per nursing, slept 8 hours last night. Continue current tx plan. Medication Compliance: Yes Side effects from medications: No Mental Status Exam Mental Status Exam Narrative: Pt is alert and oriented; behavior is cooperative and calm; dressed in casual attire; mood is described as good ; eye contact appropriate; Speech is normal rate, volume and not pressured; thought process is organized and goal directed; Thought content is on tx; denies SI/HI/VH/AH. Diagnostics Vital Signs (24Hr): Vital Signs - 24 hr 06/04/25 19:37 06/05/25 07:43 Temperature 98.5 F 98.2 F Pulse Rate 74 80 Respiratory Rate 18 16 Blood Pressure 147/76 H 154/80 H Pulse Oximetry 100 100 Oxygen Delivery Method Room Air Room Air BMI result Body Mass Index 38.9 Labs 05/30/25 11:45 06/01/25 07:48 Medications Medications Current Medications Acetaminophen (Acetaminophen 325 Mg Tablet) 650 mg PO Q6H PRN PRN Reason: Headache/Pain, Scale 1-10 Last Admin: 06/03/25 21:23 Dose: 650 mg Al Hydroxide/Mg Hydroxide (Magnesium Hydrox/Alum Hydrox 30 Ml Oral.Susp) 30 ml PO Q6H PRN PRN Reason: Heartburn/Nausea Albuterol Sulfate (Albuterol Sulfate 90 Mcg 8 Gm Inhaler) 1 puff INHALE RQ4H PRN PRN Reason: Shortness Of Breath Or Wheezing Clonazepam (Clonazepam 1 Mg Tablet) 1 mg PO TID IJEOMA Last Admin: 06/05/25 08:33 Dose: 1 mg Haloperidol (Haloperidol 5 Mg Tablet) 5 mg PO BID PRN PRN Reason: Agitation Last Admin: 06/04/25 20:43 Dose: 5 mg Hydrocortisone (Hydrocortisone 1 % Cream 28.35 Gm Tube) 1 appl TOPICAL BID PRN; Protocol PRN Reason: Itching Hydroxyzine HCl (Hydroxyzine Hcl 25 Mg Tablet) 25 mg PO Q6H PRN PRN Reason: mild anxiety Last Admin: 06/04/25 20:43 Dose: 25 mg Magnesium Hydroxide (Milk Of Magnesia 30 Ml Oral.Susp) 30 ml PO DAILY PRN PRN Reason: Constipation Methadone HCl (Methadone Hcl 20 Mg/2 Ml Oral.Conc) 50 mg PO DAILY@0800 [facility] Last Admin: 06/05/25 07:57 Dose: 50 mg Nicotine Polacrilex (Nicotine Polacrilex 2 Mg Gum) 2 mg BUCCAL Q2H PRN PRN Reason: Nicotine Cravings Prazosin HCl (Prazosin Hcl 1 Mg Capsule) 6 mg PO BEDTIME IJEOMA; Protocol Last Admin: 06/04/25 20:43 Dose: 6 mg Quetiapine Fumarate (Quetiapine Fumarate 300 Mg Tablet) 300 mg PO BEDTIME IJEOMA Last Admin: 06/04/25 20:43 Dose: 300 mg Quetiapine Fumarate (Quetiapine Fumarate 50 Mg Tablet) 50 mg PO DAILY [facility] Last Admin: 06/05/25 08:33 Dose: 50 mg Ropinirole HCl (Ropinirole Hcl 1 Mg Tablet) 1 mg PO BEDTIME IJEOMA Last Admin: 06/04/25 20:43 Dose: 1 mg Sertraline HCl (Sertraline Hcl 100 Mg Tablet) 200 mg PO DAILY [facility] Last Admin: 06/05/25 08:33 Dose: 200 mg Trazodone HCl (Trazodone Hcl 50 Mg Tablet) 50 mg PO BEDTIME [facility] Last Admin: 06/04/25 20:43 Dose: 50 mg Trazodone HCl (Trazodone Hcl 50 Mg Tablet) 50 mg PO BEDTIME PRN PRN Reason: Insomnia Last Admin: 06/04/25 20:43 Dose: 50 mg Allergies Allergies Allergy/AdvReac Type Severity Reaction Status Date / Time Penicillins Allergy Intermediate HIVES Verified 04/23/25 13:35 cephalexin (From Keflex) Allergy Unknown Verified 05/30/25 10:53 chlordiazepoxide (From Allergy Unknown Verified 05/30/25 10:53 Librium) sulfamethoxazole (From Allergy Unknown Verified 05/30/25 10:53 Bactrim) trimethoprim (From Bactrim) Allergy Unknown Verified 05/30/25 10:53 Assessment & Plan Assessment & Plan (1) Schizoaffective disorder, bipolar type: Status: Acute Code(s): F25.0 - Schizoaffective disorder, bipolar type (2) PTSD (post-traumatic stress disorder): Status: Acute Code(s): F43.10 - Post-traumatic stress disorder, unspecified (3) Opioid use disorder: Status: Acute Code(s): F11.90 - Opioid use, unspecified, uncomplicated Assessment and Plan: * additional 15mg methadone (total 45mg) * methadone 50mg in AM * add on Hep C VL and HIV screen with next lab draw (4) Alcohol use disorder: Status: Acute Code(s): F10.90 - Alcohol use, unspecified, uncomplicated Assessment and Plan: * would benefit from fixed schedule taper instead of a sx triggered * marble installer to 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 Plan: CV 15 minute safety checks obtain collateral Continue home medications Encourage groups MARIANA protocol Consult to addiction medicine d/t pt requesting increase in methadone Order HIV/Hep Panel per pt request Start: hydrocortisone cream BID PRN for itching on arm Discharge planning 06/02: Patient reports feeling a little better today; she reports not sleeping well last night despite nursing reporting pt sleeping throughout the night. Pt focused on obtaining bed at [facility]. denies SI/HI/VH. Pt reports auditory hallucinations of mumbles . ANAHI PEÑA after case reviewed with Regina Gant NP. Continue current tx plan. 06/03: Active on unit. attending groups. Patient reports feeling okay today; pt stated, I'm feeling like my mood is better but I'm still having anxiety about if I'm going to go to a program . denies any withdrawal symptoms. denies SI/HI/VH. Pt continues to reports auditory hallucinations of mumbles . Continue current tx plan. 06/04: Active on unit. attending groups. Patient reports feeling pretty good today; pt stated, I didn't sleep well last night because I was anxious. I'm hoping to get into a program . denies SI/HI/VH/AH. Continue current tx plan. 06/05: Patient reports doing good today; pt stated, I'm having a little anxiety but I'm no longer depressed . focused on going to a program. She reports feeling hopeful. denies SI/HI/VH/AH. Per nursing, slept 8 hours last night. Continue current tx plan. Patient educated on: diagnosis, medication risk/benefits and therapeutic strategies Reason for continued inpatient stay Substantial Risk for: med/psych decompensation Time Spent With Patient Time: Total time managing care of this patient today _20___ minutes.
[2025-06-05 19:30] VITALS: BP 131/79; PULSE 77; RESP 16; TEMP 36.5; O2SAT 97
[2025-06-05 21:23] VITALS: BP 123/70
[2025-06-06 07:39] VITALS: BP 147/89; PULSE 86; RESP 16; TEMP 36.7; O2SAT 99
[2025-06-06] MEDS: methADONE HCl 20 MG/2 ML ORAL.CONC 50 MG PO (07:50)
--- NOTE | 2025-06-06 08:29 | HO.PSYCHPN ---
Subjective Subjective Date of Service: 06/06/25 Reason For Visit: SI Subjective Notes: Conditional Voluntary Interim History: Patient continues to report feeling good; pt stated, last night was the first time I slept thought the whole night. I'm happy about that . She reports feeling anxious about not knowing if she is going to a program. denies SI/HI/VH/AH. Continue current tx plan. Medication Compliance: Yes Side effects from medications: No Attending Groups: Intermittent Mental Status Exam Mental Status Exam Narrative: Pt is alert and oriented; behavior is cooperative and calm; dressed in casual attire; mood is described as good ; eye contact appropriate; Speech is normal rate, volume and not pressured; thought process is organized and goal directed; Thought content is on tx; denies SI/HI/VH/AH. Diagnostics Vital Signs (24Hr): Vital Signs - 24 hr 06/05/25 19:30 06/05/25 21:23 06/06/25 07:39 Temperature 97.7 F 98.0 F Pulse Rate 77 86 Respiratory Rate 16 16 Blood Pressure 131/79 123/70 147/89 H Pulse Oximetry 97 99 Oxygen Delivery Method Room Air Room Air BMI result Body Mass Index 38.9 Labs 05/30/25 11:45 06/01/25 07:48 Medications Medications Current Medications Acetaminophen (Acetaminophen 325 Mg Tablet) 650 mg PO Q6H PRN PRN Reason: Headache/Pain, Scale 1-10 Last Admin: 06/03/25 21:23 Dose: 650 mg Al Hydroxide/Mg Hydroxide (Magnesium Hydrox/Alum Hydrox 30 Ml Oral.Susp) 30 ml PO Q6H PRN PRN Reason: Heartburn/Nausea Albuterol Sulfate (Albuterol Sulfate 90 Mcg 8 Gm Inhaler) 1 puff INHALE RQ4H PRN PRN Reason: Shortness Of Breath Or Wheezing Clonazepam (Clonazepam 1 Mg Tablet) 1 mg PO TID IJEOMA Last Admin: 06/06/25 08:18 Dose: 1 mg Haloperidol (Haloperidol 5 Mg Tablet) 5 mg PO BID PRN PRN Reason: Agitation Last Admin: 06/04/25 20:43 Dose: 5 mg Hydrocortisone (Hydrocortisone 1 % Cream 28.35 Gm Tube) 1 appl TOPICAL BID PRN; Protocol PRN Reason: Itching Hydroxyzine HCl (Hydroxyzine Hcl 25 Mg Tablet) 25 mg PO Q6H PRN PRN Reason: mild anxiety Last Admin: 06/04/25 20:43 Dose: 25 mg Magnesium Hydroxide (Milk Of Magnesia 30 Ml Oral.Susp) 30 ml PO DAILY PRN PRN Reason: Constipation Methadone HCl (Methadone Hcl 20 Mg/2 Ml Oral.Conc) 50 mg PO DAILY@0800 [facility] Last Admin: 06/06/25 07:50 Dose: 50 mg Nicotine Polacrilex (Nicotine Polacrilex 2 Mg Gum) 2 mg BUCCAL Q2H PRN PRN Reason: Nicotine Cravings Prazosin HCl (Prazosin Hcl 1 Mg Capsule) 6 mg PO BEDTIME IJEOMA; Protocol Last Admin: 06/05/25 21:23 Dose: 6 mg Quetiapine Fumarate (Quetiapine Fumarate 300 Mg Tablet) 300 mg PO BEDTIME IJEOMA Last Admin: 06/05/25 21:23 Dose: 300 mg Quetiapine Fumarate (Quetiapine Fumarate 50 Mg Tablet) 50 mg PO DAILY [facility] Last Admin: 06/06/25 08:18 Dose: 50 mg Ropinirole HCl (Ropinirole Hcl 1 Mg Tablet) 1 mg PO BEDTIME IJEOMA Last Admin: 06/05/25 21:23 Dose: 1 mg Sertraline HCl (Sertraline Hcl 100 Mg Tablet) 200 mg PO DAILY IJEOMA Last Admin: 06/06/25 08:18 Dose: 200 mg Trazodone HCl (Trazodone Hcl 50 Mg Tablet) 50 mg PO BEDTIME IJEOMA Last Admin: 06/05/25 21:23 Dose: 50 mg Trazodone HCl (Trazodone Hcl 50 Mg Tablet) 50 mg PO BEDTIME PRN PRN Reason: Insomnia Last Admin: 06/04/25 20:43 Dose: 50 mg Allergies Allergies Allergy/AdvReac Type Severity Reaction Status Date / Time Penicillins Allergy Intermediate HIVES Verified 04/23/25 13:35 cephalexin (From Keflex) Allergy Unknown Verified 05/30/25 10:53 chlordiazepoxide (From Allergy Unknown Verified 05/30/25 10:53 Librium) sulfamethoxazole (From Allergy Unknown Verified 05/30/25 10:53 Bactrim) trimethoprim (From Bactrim) Allergy Unknown Verified 05/30/25 10:53 Assessment & Plan Assessment & Plan (1) Schizoaffective disorder, bipolar type: Status: Acute Code(s): F25.0 - Schizoaffective disorder, bipolar type (2) PTSD (post-traumatic stress disorder): Status: Acute Code(s): F43.10 - Post-traumatic stress disorder, unspecified (3) Opioid use disorder: Status: Acute Code(s): F11.90 - Opioid use, unspecified, uncomplicated Assessment and Plan: additional 15mg methadone (total 45mg) methadone 50mg in AM add on Hep C VL and HIV screen with next lab draw (4) Alcohol use disorder: Status: Acute Code(s): F10.90 - Alcohol use, unspecified, uncomplicated Assessment and Plan: would benefit from fixed schedule taper instead of a sx triggered power and recovery shift engineer to 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 Plan: CV 15 minute safety checks obtain collateral Continue home medications Encourage groups MARIANA protocol Consult to addiction medicine d/t pt requesting increase in methadone Order HIV/Hep Panel per pt request Start: hydrocortisone cream BID PRN for itching on arm Discharge planning 06/02: Patient reports feeling a little better today; she reports not sleeping well last night despite nursing reporting pt sleeping throughout the night. Pt focused on obtaining bed at [facility]. denies SI/HI/VH. Pt reports auditory hallucinations of mumbles . ANAHI PEÑA after case reviewed with Regina Gant NP. Continue current tx plan. 06/03: Active on unit. attending groups. Patient reports feeling okay today; pt stated, I'm feeling like my mood is better but I'm still having anxiety about if I'm going to go to a program . denies any withdrawal symptoms. denies SI/HI/VH. Pt continues to reports auditory hallucinations of mumbles . Continue current tx plan. 06/04: Active on unit. attending groups. Patient reports feeling pretty good today; pt stated, I didn't sleep well last night because I was anxious. I'm hoping to get into a program . denies SI/HI/VH/AH. Continue current tx plan. 06/05: Patient reports doing good today; pt stated, I'm having a little anxiety but I'm no longer depressed . focused on going to a program. She reports feeling hopeful. denies SI/HI/VH/AH. Per nursing, slept 8 hours last night. Continue current tx plan. 06/06:Patient continues to report feeling good; pt stated, last night was the first time I slept thought the whole night. I'm happy about that . She reports feeling anxious about not knowing if she is going to a program. denies SI/HI/VH/AH. Continue current tx plan. Patient educated on: diagnosis and medication risk/benefits Reason for continued inpatient stay Substantial Risk for: med/psych decompensation Time Spent With Patient Time: Total time managing care of this patient today _20___ minutes.
[2025-06-06 21:08] VITALS: BP 126/78; PULSE 73; RESP 16; TEMP 36.6; O2SAT 97
[2025-06-07 07:20] VITALS: BP 125/67; PULSE 86; RESP 16; TEMP 36.4; O2SAT 97
[2025-06-07] MEDS: methADONE HCl 20 MG/2 ML ORAL.CONC 50 MG PO (08:28)
--- NOTE | 2025-06-07 13:22 | P.PNPSI_ITS ---
Subjective Subjective Date of Service: 06/07/25 Reason For Visit: SI Subjective Notes: Conditional Voluntary Interim History: Active on unit. attending groups. Patient continues to report feeling good; pt stated, I'm feeling much better today. I'm hoping I get into somewhere tomorrow . denies SI/HI/VH/AH. Continue current tx plan. Medication Compliance: Yes Side effects from medications: No Attending Groups: Yes Mental Status Exam Mental Status Exam Narrative: Pt is alert and oriented; behavior is cooperative and calm; dressed in casual attire; mood is described as good ; eye contact appropriate; Speech is normal rate, volume and not pressured; thought process is organized and goal directed; Thought content is on tx; denies SI/HI/VH/AH. Diagnostics Vital Signs (24Hr): Vital Signs - 24 hr 06/06/25 21:08 06/07/25 07:20 Temperature 97.8 F 97.5 F Pulse Rate 73 86 Respiratory Rate 16 16 Blood Pressure 126/78 125/67 Pulse Oximetry 97 97 Oxygen Delivery Method Room Air Room Air BMI result Body Mass Index 38.9 Labs 05/30/25 11:45 06/01/25 07:48 Medications Medications Current Medications Acetaminophen (Acetaminophen 325 Mg Tablet) 650 mg PO Q6H PRN PRN Reason: Headache/Pain, Scale 1-10 Last Admin: 06/06/25 14:19 Dose: 650 mg Al Hydroxide/Mg Hydroxide (Magnesium Hydrox/Alum Hydrox 30 Ml Oral.Susp) 30 ml PO Q6H PRN PRN Reason: Heartburn/Nausea Albuterol Sulfate (Albuterol Sulfate 90 Mcg 8 Gm Inhaler) 1 puff INHALE RQ4H PRN PRN Reason: Shortness Of Breath Or Wheezing Benztropine Mesylate (Benztropine Mesylate 1 Mg Tablet) 1 mg PO BID PRN PRN Reason: Extrapyramidal Effects Last Admin: 06/07/25 10:30 Dose: 1 mg Clonazepam (Clonazepam 1 Mg Tablet) 1 mg PO TID IJEOMA Last Admin: 06/07/25 08:30 Dose: 1 mg Haloperidol (Haloperidol 5 Mg Tablet) 5 mg PO BID PRN PRN Reason: Agitation Last Admin: 06/07/25 10:30 Dose: 5 mg Hydrocortisone (Hydrocortisone 1 % Cream 28.35 Gm Tube) 1 appl TOPICAL BID PRN; Protocol PRN Reason: Itching Hydroxyzine HCl (Hydroxyzine Hcl 25 Mg Tablet) 25 mg PO Q6H PRN PRN Reason: mild anxiety Last Admin: 06/06/25 21:09 Dose: 25 mg Magnesium Hydroxide (Milk Of Magnesia 30 Ml Oral.Susp) 30 ml PO DAILY PRN PRN Reason: Constipation Methadone HCl (Methadone Hcl 20 Mg/2 Ml Oral.Conc) 50 mg PO DAILY@0800 [facility] Last Admin: 06/07/25 08:28 Dose: 50 mg Nicotine Polacrilex (Nicotine Polacrilex 2 Mg Gum) 2 mg BUCCAL Q2H PRN PRN Reason: Nicotine Cravings Prazosin HCl (Prazosin Hcl 1 Mg Capsule) 6 mg PO BEDTIME IJEOMA; Protocol Last Admin: 06/06/25 21:09 Dose: 6 mg Quetiapine Fumarate (Quetiapine Fumarate 300 Mg Tablet) 300 mg PO BEDTIME [facility] Last Admin: 06/06/25 21:10 Dose: 300 mg Quetiapine Fumarate (Quetiapine Fumarate 50 Mg Tablet) 50 mg PO DAILY [facility] Last Admin: 06/07/25 08:29 Dose: 50 mg Ropinirole HCl (Ropinirole Hcl 1 Mg Tablet) 1 mg PO BEDTIME [facility] Last Admin: 06/06/25 21:09 Dose: 1 mg Sertraline HCl (Sertraline Hcl 100 Mg Tablet) 200 mg PO DAILY [facility] Last Admin: 06/07/25 08:29 Dose: 200 mg Trazodone HCl (Trazodone Hcl 50 Mg Tablet) 50 mg PO BEDTIME [facility] Last Admin: 06/06/25 21:10 Dose: 50 mg Trazodone HCl (Trazodone Hcl 50 Mg Tablet) 50 mg PO BEDTIME PRN PRN Reason: Insomnia Last Admin: 06/04/25 20:43 Dose: 50 mg Allergies Allergies Allergy/AdvReac Type Severity Reaction Status Date / Time Penicillins Allergy Intermediate HIVES Verified 04/23/25 13:35 cephalexin (From Keflex) Allergy Unknown Verified 05/30/25 10:53 chlordiazepoxide (From Allergy Unknown Verified 05/30/25 10:53 Librium) sulfamethoxazole (From Allergy Unknown Verified 05/30/25 10:53 Bactrim) trimethoprim (From Bactrim) Allergy Unknown Verified 05/30/25 10:53 Assessment & Plan Assessment & Plan (1) Schizoaffective disorder, bipolar type: Status: Acute Code(s): F25.0 - Schizoaffective disorder, bipolar type (2) PTSD (post-traumatic stress disorder): Status: Acute Code(s): F43.10 - Post-traumatic stress disorder, unspecified (3) Opioid use disorder: Status: Acute Code(s): F11.90 - Opioid use, unspecified, uncomplicated Assessment and Plan: * additional 15mg methadone (total 45mg) * methadone 50mg in AM * add on Hep C VL and HIV screen with next lab draw (4) Alcohol use disorder: Status: Acute Code(s): F10.90 - Alcohol use, unspecified, uncomplicated Assessment and Plan: * would benefit from fixed schedule taper instead of a sx triggered * 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 Plan: CV 15 minute safety checks obtain collateral Continue home medications Encourage groups MARIANA protocol Consult to addiction medicine d/t pt requesting increase in methadone Order HIV/Hep Panel per pt request Start: hydrocortisone cream BID PRN for itching on arm Discharge planning 06/02: Patient reports feeling a little better today; she reports not sleeping well last night despite nursing reporting pt sleeping throughout the night. Pt focused on obtaining bed at [facility]. denies SI/HI/VH. Pt reports auditory hallucinations of mumbles . ANAHI PEÑA after case reviewed with Regina Gant NP. Continue current tx plan. 06/03: Active on unit. attending groups. Patient reports feeling okay today; pt stated, I'm feeling like my mood is better but I'm still having anxiety about if I'm going to go to a program . denies any withdrawal symptoms. denies SI/HI/VH. Pt continues to reports auditory hallucinations of mumbles . Continue current tx plan. 06/04: Active on unit. attending groups. Patient reports feeling pretty good today; pt stated, I didn't sleep well last night because I was anxious. I'm hoping to get into a program . denies SI/HI/VH/AH. Continue current tx plan. 06/05: Patient reports doing good today; pt stated, I'm having a little anxiety but I'm no longer depressed . focused on going to a program. She reports feeling hopeful. denies SI/HI/VH/AH. Per nursing, slept 8 hours last night. Continue current tx plan. 06/06:Patient continues to report feeling good; pt stated, last night was the first time I slept thought the whole night. I'm happy about that . She reports feeling anxious about not knowing if she is going to a program. denies SI/HI/VH/AH. Continue current tx plan. 06/07:Active on unit. attending groups. Patient continues to report feeling good; pt stated, I'm feeling much better today. I'm hoping I get into somewhere tomorrow . denies SI/HI/VH/AH. Continue current tx plan. Patient educated on: diagnosis, medication risk/benefits and therapeutic strategies Reason for continued inpatient stay Substantial Risk for: med/psych decompensation Time Spent With Patient Time: Total time managing care of this patient today _20___ minutes.
[2025-06-07 21:18] VITALS: BP 132/78; PULSE 86; RESP 16; TEMP 37.1; O2SAT 95
[2025-06-08 07:31] VITALS: BP 125/59; PULSE 86; RESP 16; TEMP 36.4; O2SAT 99
[2025-06-08] MEDS: methADONE HCl 20 MG/2 ML ORAL.CONC 50 MG PO (08:12)
--- NOTE | 2025-06-08 11:29 | P.PNPSI_ITS ---
Subjective Subjective Date of Service: 06/08/25 Reason For Visit: SI Subjective Notes: Conditional Voluntary Interim History: Observed falling asleep this morning while eating. Seroquel 50mg PO daily DC'd. Patient continues to report feeling good; she reports sleeping well at night. She is having anxiety d/t concerns if she will be accepted into a program; if not, she plans on returning home and following up with outpatient providers. denies SI/HI/VH/AH. Per social worker clinical; phone intake today with [facility] and tomorrow with [facility]. Medication Compliance: Yes Side effects from medications: No Attending Groups: Yes Mental Status Exam Mental Status Exam Narrative: Pt is alert and oriented; behavior is cooperative and calm; dressed in casual attire; mood is described as good, some anxiety ; eye contact appropriate; Speech is normal rate, volume and not pressured; thought process is organized and goal directed; Thought content is on tx; denies SI/HI/VH/AH. Diagnostics Vital Signs (24Hr): Vital Signs - 24 hr 06/07/25 21:18 06/08/25 07:31 Temperature 98.7 F 97.6 F Pulse Rate 86 86 Respiratory Rate 16 16 Blood Pressure 132/78 125/59 L Pulse Oximetry 95 99 Oxygen Delivery Method Room Air Room Air BMI result Body Mass Index 38.9 Labs 05/30/25 11:45 06/01/25 07:48 Medications Medications Current Medications Acetaminophen (Acetaminophen 325 Mg Tablet) 650 mg PO Q6H PRN PRN Reason: Headache/Pain, Scale 1-10 Last Admin: 06/06/25 14:19 Dose: 650 mg Al Hydroxide/Mg Hydroxide (Magnesium Hydrox/Alum Hydrox 30 Ml Oral.Susp) 30 ml PO Q6H PRN PRN Reason: Heartburn/Nausea Albuterol Sulfate (Albuterol Sulfate 90 Mcg 8 Gm Inhaler) 1 puff INHALE RQ4H PRN PRN Reason: Shortness Of Breath Or Wheezing Benztropine Mesylate (Benztropine Mesylate 1 Mg Tablet) 1 mg PO BID PRN PRN Reason: Extrapyramidal Effects Last Admin: 06/07/25 21:19 Dose: 1 mg Clonazepam (Clonazepam 1 Mg Tablet) 1 mg PO TID IJEOMA Last Admin: 06/08/25 08:09 Dose: 1 mg Haloperidol (Haloperidol 5 Mg Tablet) 5 mg PO BID PRN PRN Reason: Agitation Last Admin: 06/07/25 21:20 Dose: 5 mg Hydrocortisone (Hydrocortisone 1 % Cream 28.35 Gm Tube) 1 appl TOPICAL BID PRN; Protocol PRN Reason: Itching Hydroxyzine HCl (Hydroxyzine Hcl 25 Mg Tablet) 25 mg PO Q6H PRN PRN Reason: mild anxiety Last Admin: 06/06/25 21:09 Dose: 25 mg Magnesium Hydroxide (Milk Of Magnesia 30 Ml Oral.Susp) 30 ml PO DAILY PRN PRN Reason: Constipation Methadone HCl (Methadone Hcl 20 Mg/2 Ml Oral.Conc) 50 mg PO DAILY@0800 [facility] Last Admin: 06/08/25 08:12 Dose: 50 mg Nicotine Polacrilex (Nicotine Polacrilex 2 Mg Gum) 2 mg BUCCAL Q2H PRN PRN Reason: Nicotine Cravings Prazosin HCl (Prazosin Hcl 1 Mg Capsule) 6 mg PO BEDTIME IJEOMA; Protocol Last Admin: 06/07/25 21:19 Dose: 6 mg Quetiapine Fumarate (Quetiapine Fumarate 300 Mg Tablet) 300 mg PO BEDTIME IJEOMA Last Admin: 06/07/25 21:19 Dose: 300 mg Quetiapine Fumarate (Quetiapine Fumarate 50 Mg Tablet) 50 mg PO DAILY IJEOMA Last Admin: 06/08/25 08:09 Dose: 50 mg Ropinirole HCl (Ropinirole Hcl 1 Mg Tablet) 1 mg PO BEDTIME IJEOMA Last Admin: 06/07/25 21:20 Dose: 1 mg Sertraline HCl (Sertraline Hcl 100 Mg Tablet) 200 mg PO DAILY IJEOMA Last Admin: 06/08/25 08:09 Dose: 200 mg Trazodone HCl (Trazodone Hcl 50 Mg Tablet) 50 mg PO BEDTIME IJEOMA Last Admin: 06/07/25 21:20 Dose: 50 mg Trazodone HCl (Trazodone Hcl 50 Mg Tablet) 50 mg PO BEDTIME PRN PRN Reason: Insomnia Last Admin: 06/04/25 20:43 Dose: 50 mg Allergies Allergies Allergy/AdvReac Type Severity Reaction Status Date / Time Penicillins Allergy Intermediate HIVES Verified 04/23/25 13:35 cephalexin (From Keflex) Allergy Unknown Verified 05/30/25 10:53 chlordiazepoxide (From Allergy Unknown Verified 05/30/25 10:53 Librium) sulfamethoxazole (From Allergy Unknown Verified 05/30/25 10:53 Bactrim) trimethoprim (From Bactrim) Allergy Unknown Verified 05/30/25 10:53 Assessment & Plan Assessment & Plan (1) Schizoaffective disorder, bipolar type: Status: Acute Code(s): F25.0 - Schizoaffective disorder, bipolar type (2) PTSD (post-traumatic stress disorder): Status: Acute Code(s): F43.10 - Post-traumatic stress disorder, unspecified (3) Opioid use disorder: Status: Acute Code(s): F11.90 - Opioid use, unspecified, uncomplicated Assessment and Plan: * additional 15mg methadone (total 45mg) * methadone 50mg in AM * add on Hep C VL and HIV screen with next lab draw (4) Alcohol use disorder: Status: Acute Code(s): F10.90 - Alcohol use, unspecified, uncomplicated Assessment and Plan: * would benefit from fixed schedule taper instead of a sx triggered * 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 Plan: CV 15 minute safety checks obtain collateral Continue home medications Encourage groups MARIANA protocol Consult to addiction medicine d/t pt requesting increase in methadone Order HIV/Hep Panel per pt request Start: hydrocortisone cream BID PRN for itching on arm Discharge planning 06/02: Patient reports feeling a little better today; she reports not sleeping well last night despite nursing reporting pt sleeping throughout the night. Pt focused on obtaining bed at [facility]. denies SI/HI/VH. Pt reports auditory hallucinations of mumbles . ANAHI PEÑA after case reviewed with Regina Gant NP. Continue current tx plan. 06/03: Active on unit. attending groups. Patient reports feeling okay today; pt stated, I'm feeling like my mood is better but I'm still having anxiety about if I'm going to go to a program . denies any withdrawal symptoms. denies SI/HI/VH. Pt continues to reports auditory hallucinations of mumbles . Continue current tx plan. 06/04: Active on unit. attending groups. Patient reports feeling pretty good today; pt stated, I didn't sleep well last night because I was anxious. I'm hoping to get into a program . denies SI/HI/VH/AH. Continue current tx plan. 06/05: Patient reports doing good today; pt stated, I'm having a little anxiety but I'm no longer depressed . focused on going to a program. She reports feeling hopeful. denies SI/HI/VH/AH. Per nursing, slept 8 hours last night. Continue current tx plan. 06/06:Patient continues to report feeling good; pt stated, last night was the first time I slept thought the whole night. I'm happy about that . She reports feeling anxious about not knowing if she is going to a program. denies SI/HI/VH/AH. Continue current tx plan. 06/07:Active on unit. attending groups. Patient continues to report feeling good; pt stated, I'm feeling much better today. I'm hoping I get into somewhere tomorrow . denies SI/HI/VH/AH. Continue current tx plan. 06/08: Observed falling asleep this morning while eating. Seroquel 50mg PO daily DC'd. Patient continues to report feeling good; she reports sleeping well at night. She is having anxiety d/t concerns if she will be accepted into a program; if not, she plans on returning home and following up with outpatient providers. denies SI/HI/VH/AH. Per social worker clinical; phone intake today with Cip[facility] and tomorrow with [facility]. Patient educated on: diagnosis, medication risk/benefits and therapeutic strategies Reason for continued inpatient stay Substantial Risk for: med/psych decompensation Time Spent With Patient Time: Total time managing care of this patient today _20___ minutes.
[2025-06-08 20:00] VITALS: BP 127/69; PULSE 81; RESP 16; TEMP 37.1; O2SAT 99
[2025-06-08 21:15] VITALS: BP 127/69
[2025-06-09 07:05] VITALS: BP 151/80; PULSE 91; RESP 14; TEMP 36.6; O2SAT 99
[2025-06-09] MEDS: methADONE HCl 20 MG/2 ML ORAL.CONC 50 MG PO (07:51)
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
--- NOTE | 2025-06-09 12:24 | P.PNPSI_ITS ---
Subjective Subjective Date of Service: 06/09/25 Reason For Visit: SI Subjective Notes: Conditional Voluntary Interim History: More alert today. Patient reports feeling good; she is hoping phone intake with [facility] goes well. denies SI/HI/VH/AH. She reports sleeping well. Plan to discharge home tomorrow or to program; pt aware. Medication Compliance: Yes Side effects from medications: No Attending Groups: Yes Mental Status Exam Mental Status Exam Narrative: Pt is alert and oriented; behavior is cooperative and calm; dressed in casual attire; mood is described as good ; eye contact appropriate; Speech is normal rate, volume and not pressured; thought process is organized; Thought content is on discharge; denies SI/HI/VH/AH. Diagnostics Vital Signs (24Hr): Vital Signs - 24 hr 06/08/25 20:00 06/08/25 21:15 06/09/25 07:05 Temperature 98.8 F 97.9 F Pulse Rate 81 91 Respiratory Rate 16 14 Blood Pressure 127/69 127/69 151/80 H Pulse Oximetry 99 99 Oxygen Delivery Method Room Air Room Air BMI result Body Mass Index 38.9 Labs 05/30/25 11:45 06/01/25 07:48 Medications Medications Current Medications Acetaminophen (Acetaminophen 325 Mg Tablet) 650 mg PO Q6H PRN PRN Reason: Headache/Pain, Scale 1-10 Last Admin: 06/09/25 08:28 Dose: 650 mg Al Hydroxide/Mg Hydroxide (Magnesium Hydrox/Alum Hydrox 30 Ml Oral.Susp) 30 ml PO Q6H PRN PRN Reason: Heartburn/Nausea Albuterol Sulfate (Albuterol Sulfate 90 Mcg 8 Gm Inhaler) 1 puff INHALE RQ4H PRN PRN Reason: Shortness Of Breath Or Wheezing Benztropine Mesylate (Benztropine Mesylate 1 Mg Tablet) 1 mg PO BID PRN PRN Reason: Extrapyramidal Effects Last Admin: 06/09/25 12:05 Dose: 1 mg Clonazepam (Clonazepam 1 Mg Tablet) 1 mg PO TID IJEOMA Last Admin: 06/09/25 08:21 Dose: 1 mg Haloperidol (Haloperidol 5 Mg Tablet) 5 mg PO BID PRN PRN Reason: Agitation Last Admin: 06/09/25 12:05 Dose: 5 mg Hydrocortisone (Hydrocortisone 1 % Cream 28.35 Gm Tube) 1 appl TOPICAL BID PRN; Protocol PRN Reason: Itching Hydroxyzine HCl (Hydroxyzine Hcl 25 Mg Tablet) 25 mg PO Q6H PRN PRN Reason: mild anxiety Last Admin: 06/06/25 21:09 Dose: 25 mg Magnesium Hydroxide (Milk Of Magnesia 30 Ml Oral.Susp) 30 ml PO DAILY PRN PRN Reason: Constipation Methadone HCl (Methadone Hcl 20 Mg/2 Ml Oral.Conc) 50 mg PO DAILY@0800 IJEOMA Last Admin: 06/09/25 07:51 Dose: 50 mg Prazosin HCl (Prazosin Hcl 1 Mg Capsule) 6 mg PO BEDTIME IJEOMA; Protocol Last Admin: 06/08/25 21:15 Dose: 6 mg Quetiapine Fumarate (Quetiapine Fumarate 300 Mg Tablet) 300 mg PO BEDTIME IJEOMA Last Admin: 06/08/25 21:15 Dose: 300 mg Ropinirole HCl (Ropinirole Hcl 1 Mg Tablet) 1 mg PO BEDTIME IJEOMA Last Admin: 06/08/25 21:15 Dose: 1 mg Sertraline HCl (Sertraline Hcl 100 Mg Tablet) 200 mg PO DAILY IJEOMA Last Admin: 06/09/25 08:23 Dose: 200 mg Trazodone HCl (Trazodone Hcl 50 Mg Tablet) 50 mg PO BEDTIME IJEOMA Last Admin: 06/08/25 21:15 Dose: 50 mg Trazodone HCl (Trazodone Hcl 50 Mg Tablet) 50 mg PO BEDTIME PRN PRN Reason: Insomnia Last Admin: 06/04/25 20:43 Dose: 50 mg Allergies Allergies Allergy/AdvReac Type Severity Reaction Status Date / Time Penicillins Allergy Intermediate HIVES Verified 04/23/25 13:35 cephalexin (From Keflex) Allergy Unknown Verified 05/30/25 10:53 chlordiazepoxide (From Allergy Unknown Verified 05/30/25 10:53 Librium) sulfamethoxazole (From Allergy Unknown Verified 05/30/25 10:53 Bactrim) trimethoprim (From Bactrim) Allergy Unknown Verified 05/30/25 10:53 Assessment & Plan Assessment & Plan (1) Schizoaffective disorder, bipolar type: Status: Acute Code(s): F25.0 - Schizoaffective disorder, bipolar type (2) PTSD (post-traumatic stress disorder): Status: Acute Code(s): F43.10 - Post-traumatic stress disorder, unspecified (3) Alcohol use disorder: Status: Acute Code(s): F10.90 - Alcohol use, unspecified, uncomplicated (4) Opioid use disorder: Status: Acute Code(s): F11.90 - Opioid use, unspecified, uncomplicated (5) Cocaine use disorder: Status: Acute Code(s): F14.10 - Cocaine abuse, uncomplicated Plan Plan: CV 15 minute safety checks obtain collateral Continue home medications Encourage groups [facility] protocol Consult to addiction medicine d/t pt requesting increase in methadone Order HIV/Hep Panel per pt request Start: hydrocortisone cream BID PRN for itching on arm Discharge planning 06/02: Patient reports feeling a little better today; she reports not sleeping well last night despite nursing reporting pt sleeping throughout the night. Pt focused on obtaining bed at [facility]. denies SI/HI/VH. Pt reports auditory hallucinations of mumbles . DC MARIANA after case reviewed with Regina Gant NP. Continue current tx plan. 06/03: Active on unit. attending groups. Patient reports feeling okay today; pt stated, I'm feeling like my mood is better but I'm still having anxiety about if I'm going to go to a program . denies any withdrawal symptoms. denies SI/HI/VH. Pt continues to reports auditory hallucinations of mumbles . Continue current tx plan. 06/04: Active on unit. attending groups. Patient reports feeling pretty good today; pt stated, I didn't sleep well last night because I was anxious. I'm hoping to get into a program . denies SI/HI/VH/AH. Continue current tx plan. 06/05: Patient reports doing good today; pt stated, I'm having a little anxiety but I'm no longer depressed . focused on going to a program. She reports feeling hopeful. denies SI/HI/VH/AH. Per nursing, slept 8 hours last night. Continue current tx plan. 06/06:Patient continues to report feeling good; pt stated, last night was the first time I slept thought the whole night. I'm happy about that . She reports feeling anxious about not knowing if she is going to a program. denies SI/HI/VH/AH. Continue current tx plan. 06/07:Active on unit. attending groups. Patient continues to report feeling good; pt stated, I'm feeling much better today. I'm hoping I get into somewhere tomorrow . denies SI/HI/VH/AH. Continue current tx plan. 06/08: Observed falling asleep this morning while eating. Seroquel 50mg PO daily DC'd. Patient continues to report feeling good; she reports sleeping well at night. She is having anxiety d/t concerns if she will be accepted into a program; if not, she plans on returning home and following up with outpatient providers. denies SI/HI/VH/AH. Per geriatric social work professor; phone intake today with [facility] and tomorrow with [facility]. 06/09: More alert today. Patient reports feeling good; she is hoping phone intake with [facility] goes well. denies SI/HI/VH/AH. She reports sleeping well. Plan to discharge home tomorrow or to program; pt aware. Patient educated on: diagnosis, medication risk/benefits and therapeutic strategies Reason for continued inpatient stay Substantial Risk for: stable for discharge Time Spent With Patient Time: Total time managing care of this patient today _20___ minutes.
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
[2025-06-09 20:00] VITALS: BP 137/66; PULSE 79; RESP 16; TEMP 36.4; O2SAT 97
[2025-06-09 20:22] VITALS: BP 137/66
[2025-06-10] MEDS: Naloxone HCl Nasal TAKE HOME 4 MG SPRAY 8 MG NOSTRILALT (07:55)
[2025-06-10] MEDS: methADONE HCl 20 MG/2 ML ORAL.CONC 50 MG PO (07:55)
[2025-06-10 08:00] VITALS: BP 127/62; PULSE 85; RESP 16; TEMP 36.2; O2SAT 98
--- NOTE | 2025-06-10 09:44 | PM.PSYDC ---
DS: Providers Provider Date of Service: 06/10/25 Date of admission: 05/31/25 18:20 Date of discharge: 06/10/25 Primary care physician: Jany Georges NP Admitting clinician: Jenna Day Attending physician on admission: Rodrigo Santamaria Consults: 05/31/25 22:05 Addiction Medicine Provider Routine Consulting Provider: Addiction Covering Reason for consultation: PSA 06/01/25 16:10 Addiction Medicine Provider Routine Consulting Provider: Addiction Covering Reason for consultation: pt would like methadone dose adjustment Has provider been notified: Yes 06/09/25 09:05 Consult to Hospitalist Routine Comment: Consulting Provider: [facility] Hospitalists Reason For Exam: abdominal pain 06/09/25 12:16 Consult to General Surgery Routine Consulting Provider: [facility] General Surgeons Reason for consultation: Question incarcerated umbilical hernia Has provider been notified: Yes Attending physician on discharge: Rodrigo Santamaria Discharging clinician: Jenna Day DS: Diagnosis Discharge Diagnosis (1) Umbilical hernia: Status: Acute DS: Medications Discharge Medications Home Medications: Previous Rx's ?Medication ?Instructions ?Recorded albuterol sulfate 90 mcg/actuation 1 - 2 puff inhalation Q4-6H PRN 06/09/25 aerosol inhaler Shortness Of Breath Or Wheezing 30 days #6.7 grams benztropine 1 mg tablet 1 mg PO BID PRN Extrapyramidal 06/09/25 Effects 30 days #60 tabs clonazepam 1 mg tablet 1 mg PO TID anxiety 7 days #21 tabs 06/09/25 haloperidol 5 mg tablet 5 mg PO BID PRN Agitation 30 days 06/09/25 #60 tabs methadone 10 mg/mL oral 50 mg (5 mL) PO DAILY@0800 #0 mL 06/09/25 concentrate (Methadose) prazosin 2 mg capsule 6 mg (3 x 2 mg) PO BEDTIME 30 days 06/09/25 #90 caps quetiapine 300 mg tablet 300 mg PO BEDTIME 30 days #30 tabs 06/09/25 ropinirole 1 mg tablet 1 mg PO BEDTIME restless legs 30 06/09/25 days #30 tabs sertraline 100 mg tablet 200 mg (2 x 100 mg) PO DAILY 06/09/25 depressive disorder 30 days #60 tabs trazodone 50 mg tablet 50 mg PO BEDTIME 30 days #30 tabs 06/09/25 Mental Status Exam Mental Status Exam Narrative: Pt is alert and oriented; behavior is cooperative and calm; dressed in casual attire; mood is described as good ; eye contact appropriate; Speech is normal rate, volume and not pressured; thought process is organized; Thought content is on discharge; denies SI/HI/VH/AH. Data Imaging Diagnostic Imaging Impressions Abdomen Ultrasound 06/09/25 15:01 IMPRESSION: 7 x 3 x 6 cm lobulated masslike abnormality in the umbilical/infraumbilical without compression or reduction. Electronically signed by: Girish Espinoza MD 06/09/2025 03:36 PM EDT RP DS: Summary Hospital Course Hospital Course: Patient is a 45-year-old female with history of schizoaffective disorder, PTSD, opiate use disorder, alcohol use disorder and cocaine use disorder who presented to ER via EMS due to suicidal ideation secondary to increased command auditory hallucinations. Per crisis report, patient presented to ER via ambulance due to chest pain, shortness of breath, command auditory hallucinations and suicidal ideation with a plan. History of multiple inpatient psychiatric hospitalizations. Patient was recently at [facility] for dual diagnosis treatment on April 28 2025. Patient reports that she can not recall when she was discharged from their unit. Patient reports she signed herself out and returned to the area without an MAT clinic, a therapist or a step-down to [facility]. She reports if she were to be discharged, she would commit suicide via intentional overdose, hanging or drowning. History of 1 prior suicide attempt on 04/23/2025 after allegedly attempting to drown herself in a bathtub. Prior to this patient has no documented history of suicide attempts or SIB. During admission assessment, patient presents alert and oriented x3. Calm and cooperative. Patient reports feeling depressed; patient stated, I have no water, no heat and no electricity in my house. There is mold everywhere. I have to try to find somewhere else to go . Patient reports she has been using IV heroin daily and drinking a couple pints of vodka daily; along with using cocaine 3 times a week . Patient reports she has not been medication compliant. Patient stated, I feel like my meds work when I use them. I don't take my meds when I'm using . Patient reports having auditory hallucinations on and off telling her to hang herself. She reports history of suicide attempts; per crisis she has 1 prior suicide attempt. Denies history of SIB. Patient stated, I want to work on my coping skills here and try to get a therapist. I want to go to a substance abuse program . Patient would like labs drawn for HIV and hepatitis panel. She currently denies SI/HI/VH/AH. CV 15 minute safety checks obtain collateral Continue home medications Encourage groups MARIANA protocol Consult to addiction medicine d/t pt requesting increase in methadone Start: hydrocortisone cream BID PRN for itching on arm Discharge planning Patient reports feeling a little better today; she reports not sleeping well last night despite nursing reporting pt sleeping throughout the night. Pt focused on obtaining bed at [facility]. denies SI/HI/VH. Pt reports auditory hallucinations of mumbles . ANAHI PEÑA after case reviewed with Regina Gant NP. Continue current tx plan. Active on unit. attending groups. Patient reports feeling okay today; pt stated, I'm feeling like my mood is better but I'm still having anxiety about if I'm going to go to a program . denies any withdrawal symptoms. denies SI/HI/VH. Pt continues to reports auditory hallucinations of mumbles . Continue current tx plan. Active on unit. attending groups. Patient reports feeling pretty good today; pt stated, I didn't sleep well last night because I was anxious. I'm hoping to get into a program . denies SI/HI/VH/AH. Continue current tx plan. Patient reports doing good today; pt stated, I'm having a little anxiety but I'm no longer depressed . focused on going to a program. She reports feeling hopeful. denies SI/HI/VH/AH. Per nursing, slept 8 hours last night. Continue current tx plan. Patient continues to report feeling good; pt stated, last night was the first time I slept thought the whole night. I'm happy about that . She reports feeling anxious about not knowing if she is going to a program. denies SI/HI/VH/AH. Continue current tx plan. Active on unit. attending groups. Patient continues to report feeling good; pt stated, I'm feeling much better today. I'm hoping I get into somewhere tomorrow . denies SI/HI/VH/AH. Continue current tx plan. Observed falling asleep this morning while eating. Seroquel 50mg PO daily DC'd. Patient continues to report feeling good; she reports sleeping well at night. She is having anxiety d/t concerns if she will be accepted into a program; if not, she plans on returning home and following up with outpatient providers. denies SI/HI/VH/AH. Per manager social; phone intake today with [facility] and tomorrow with [facility]. More alert today. Patient reports feeling good; she is hoping phone intake with [facility] goes well. denies SI/HI/VH/AH. She reports sleeping well. Plan to discharge home tomorrow or to program; pt aware. Patient reports feeling good ; she is looking forward to going to the [facility] today. denies SI/HI/VH/AH. Patient reports she plans on following up with outpatient providers. Status at Discharge Cognitive/behavioral status at discharge: Patient has insight and demonstrates good judgment in terms of wanting to pursue treatment. Patient has a safety plan that includes presenting to the closest ER or calling 911 if feeling unsafe. Functional status at discharge: independent ambulation Overall status at discharge: patient is back to baseline Time Spent with Patient Time attestation: Total time managing care of this patient today _20___ minutes. Time spent: Less than 30 minutes Discharge Plan Discharge Anticipated Discharge Date/Time: 06/10/25 11:51 Patient Disposition: Home, Self-Care Discharge Diagnosis: Schizoaffective d/o, PTSD, Alcohol use d/o, Cocaine use d/o, opioid use d/o Referrals: [facility] ([facility]) [Other] - 1 Week Referral Note: *You have been referred and accepted to the [facility] substance use treatment program. Therapy & Psychiatry [Other] - 1 Week Referral Note: *Please follow up with your outpatient providers through [facility] for aftercare appointments. Jany Georges NP [Primary Care Provider, Medical] - 06/14/25 1:15 pm Referral Note: 06-09-25 Your follow up appt has been scheduled for 06-14-25 @ 1:15pm Rick Alcantar MD [Physician, General Surgery] - 2 Weeks Referral Note: umbilical hernia Discharge Medications: New benztropine 1 mg Tablet 1 mg PO BID PRN (Reason: Extrapyramidal Effects) 30 Days Qty: 60 0RF methadone [Methadose] 10 mg/mL Concentrate 50 mg PO DAILY@0800 Qty: 0 0RF Rx Instructions: Partial Fill upon patient request. Continued ropinirole 1 mg tablet 1 mg PO BEDTIME 30 Days Qty: 30 0RF haloperidol 5 mg tablet 5 mg PO BID PRN (Reason: Agitation) 30 Days Qty: 60 0RF quetiapine 300 mg tablet 300 mg PO BEDTIME 30 Days Qty: 30 0RF trazodone 50 mg tablet 50 mg PO BEDTIME 30 Days Qty: 30 0RF sertraline 100 mg tablet 200 mg PO DAILY 30 Days Qty: 60 0RF clonazepam 1 mg tablet 1 mg PO TID 7 Days Qty: 21 3RF albuterol sulfate 90 mcg/actuation HFA aerosol inhaler 1 - 2 puff inhalation Q4-6H PRN (Reason: Shortness Of Breath Or Wheezing) 30 Days Qty: 6.7 0RF prazosin 2 mg capsule 6 mg PO BEDTIME 30 Days Qty: 90 0RF Discontinued cephalexin 500 mg capsule 500 mg PO QID clonidine HCl 0.1 mg tablet 0.1 mg PO Q6H PRN (Reason: Anxiety) methadone [Methadose] 10 mg/mL Concentrate 40 mg PO DAILY@0800 Qty: 1 0RF Rx Instructions: Partial Fill upon patient request. Discharge Orders: Discharge Order (Routine); Ordered 06/10/25 Ordered By: Jenna Day Diet: Regular diet Activity on Discharge: As tolerated Stand Alone Forms: Patient Portal Discharge page, Community Support Print Language: Greek Activity Restrictions/Additional Instructions: Follow up in office with Dr. Alcantar upon discharge regarding your umbilical hernia. ([phone]) Care Plan Goals: Maintain mood and safe behaviors Take medications as prescribed Continue to pursue sobriety Practice coping skills Continue with outpatient providers and reach out to them as needed Health Concerns: Mood stability and behaviors Sobriety Plan of Treatment: Follow up with your PCP, psychiatric provider and other outpatient providers regarding above concerns Take medications as prescribed Assessment: Patient has insight and demonstrates good judgment in terms of wanting to pursue treatment. Patient has a safety plan that includes presenting to the closest ER or calling 911 if feeling unsafe.
== END 2025-06-10 11:27 | disposition home or self-care (01) | DRG 885 ==
LOC: HO.ED 05-31 12:30 → HO.PADLT16 05-31 18:34
PROVIDERS: Admitting Provider Nurse Practitioner Psychiatric/Mental Health; Emergency Provider Emergency Medicine; PCP Nurse Practitioner Family; Responsible Provider Registered Nurse; Visit Provider Psychiatry & Neurology Psychiatry
DX: F25.0 Schizoaffective disorder, bipolar type (principal); F11.20 Opioid dependence, uncomplicated; R45.851 Suicidal ideations; K42.0 Umbilical hernia with obstruction, without gangrene; F43.10 Post-traumatic stress disorder, unspecified; F14.10 Cocaine abuse, uncomplicated; F10.90 Alcohol use, unspecified, uncomplicated; F17.210 Nicotine dependence, cigarettes, uncomplicated; Z71.6 Tobacco abuse counseling; Z79.899 Other long term (current) drug therapy
CPT/HCPCS: 36415; 76705; 80053; 80061; 80143; 80179; 80307; 81003; 81025; 82248; 83036; 83735; 84439; 84443; 84484; 85025; 85610; 93005; 99285; S9485

== ENCOUNTER → 2025-05-30 10:50 | Outpatient (BNV) | payer MEDICARE, MEDICAID, SELFPAY | PROVIDERS: Admitting Provider Nurse Practitioner Psychiatric/Mental Health; Emergency Provider Emergency Medicine; PCP Nurse Practitioner Family; Visit Provider Internal Medicine | DX: R00.1 Bradycardia, unspecified (principal) | CPT/HCPCS: 93010 ==

== ENCOUNTER 2025-05-31 18:20 | Outpatient (BNV) | payer MEDICARE, MEDICAID, SELFPAY | END 2025-06-09 15:01 | PROVIDERS: Admitting Provider Nurse Practitioner Psychiatric/Mental Health; Emergency Provider Emergency Medicine; PCP Nurse Practitioner Family; Responsible Provider Registered Nurse; Visit Provider Radiology Diagnostic Radiology | DX: K42.9 Umbilical hernia without obstruction or gangrene (principal); R10.9 Unspecified abdominal pain | CPT/HCPCS: 76705 ==

== ENCOUNTER → 2025-05-31 18:20 | Outpatient (BNV) | payer MEDICARE, MEDICAID, SELFPAY | PROVIDERS: Admitting Provider Nurse Practitioner Psychiatric/Mental Health; Emergency Provider Emergency Medicine; PCP Nurse Practitioner Family; Responsible Provider Registered Nurse; Visit Provider Physician Assistant Surgical | DX: K42.9 Umbilical hernia without obstruction or gangrene (principal) | CPT/HCPCS: 99222 ==

== ENCOUNTER → 2025-05-31 18:20 | Outpatient (BNV) | payer MEDICARE, MEDICAID, SELFPAY | PROVIDERS: Admitting Provider Nurse Practitioner Psychiatric/Mental Health; Emergency Provider Emergency Medicine; PCP Nurse Practitioner Family; Responsible Provider Registered Nurse; Visit Provider Registered Nurse | DX: F25.0 Schizoaffective disorder, bipolar type (principal); F43.11 Post-traumatic stress disorder, acute; F11.90 Opioid use, unspecified, uncomplicated; F10.90 Alcohol use, unspecified, uncomplicated; F14.10 Cocaine abuse, uncomplicated | CPT/HCPCS: 90792; 99499 ==

== ENCOUNTER → 2025-05-31 18:20 | Outpatient (BNV) | payer MEDICARE, MEDICAID, SELFPAY | PROVIDERS: Admitting Provider Nurse Practitioner Psychiatric/Mental Health; Emergency Provider Emergency Medicine; PCP Nurse Practitioner Family; Responsible Provider Registered Nurse; Visit Provider Nurse Practitioner Family | DX: K42.9 Umbilical hernia without obstruction or gangrene (principal) | CPT/HCPCS: 99221 ==

== ENCOUNTER 2025-07-15 15:28 | Outpatient (REF) | payer MEDICARE, SELFPAY ==
[2025-07-15 17:52] LABS: MANUAL DIFF FLAG NO
[2025-07-15 18:10] LABS: Hematocrit 34.6 % (37.0-47.0); Hemoglobin 11.1 g/dl (12.0-16.0); Imm Gran Abs Auto 0.04 X10*3/uL (0.00-0.03); Imm Gran Pct Auto 0.5 % (0.0-0.4); Lymphocytes Absolute Auto 2.2 X10*3/uL (1.2-4.9); Mean Corpuscular HGB Conc 32.1 g/dl (31.0-35.0); Mean Corpuscular Hemoglobin 27.6 pg (27.0-33.0); Mean Corpuscular Volume 86.1 fL (80.0-98.0); NRBC Abs Auto 0.000 X10*3/uL (0.0-0.012); NRBC Pct Auto 0.0 /100WBC (0.0-0.2); Platelet Count 205 X10*3/uL (160-400); Red Blood Count 4.02 X10*6/uL (4.20-5.50); White Blood Count 7.3 X10*3/uL (4.8-10.8)
[2025-07-15 18:13] LABS: Appearance Urine Clear; Glucose Urine UA Negative (Negative); PH 6.0 (5.0-9.0); Specific Gravity - Urine 1.010 (1.005-1.025); UMIC TRIGGER UACC YES
[2025-07-15 18:56] LABS: Alanine Aminotransferase 23 U/L (0-31); Albumin Level 4.1 g/dL (3.5-5.0); Alkaline Phosphatase 135 U/L (39-117); Anion Gap 13 (12-20); Aspartate Amino Transferase 32 U/L (5-31); Blood Urea Nitrogen 10 mg/dL (9-16); Calcium 9.0 mg/dL (8.4-10.2); Carbon Dioxide 26 mmol/L (22-29); Chloride 105 mmol/L (96-108); Cholesterol 161 mg/dL (<200); Estimated Glomerular Filt Rate > 60; HDL Cholesterol 43 mg/dL (>40); Potassium 4.4 mmol/L (3.3-5.1); Sodium 140 mmol/L (135-145); Total Protein 7.9 g/dL (6.5-8.0); Triglycerides 140 mg/dL (<150)
[2025-07-16 08:54] LABS: ~HepC Num1 15.46 S/CO (0.00-0.79); ~Hepatitis C Antibody Reactive (Nonreactive)
[2025-07-19 09:20] LABS: HCV Log PCR <1.18 NOT DETECTED Log IU/mL (NOT DETECTED); HepC Viral Load <15 NOT DETECTED IU/mL (NOT DETECTED)
== END 2025-07-15 15:29 | disposition home or self-care (01) ==
LOC: HO.CHCLDS 15:28
PROVIDERS: Visit Provider Internal Medicine
DX: G25.81 Restless legs syndrome (principal); E66.812 Obesity, class 2; E66.01 Morbid (severe) obesity due to excess calories; Z68.39 Body mass index [BMI] 39.0-39.9, adult; F32.89 Other specified depressive episodes; R03.0 Elevated blood-pressure reading, without diagnosis of hypertension
CPT/HCPCS: 36415; 80053; 80061; 81001; 84443; 85025; 86592; 86803; 87522